=== PATIENT | female | born 1950 | race Caucasian/White ===

== ENCOUNTER → 2017-06-30 | Outpatient (CLI) | payer MEDICARE ==
[~2017-06-30] MED LIST: CATHETER FLUSH 10 ML SYR IV PRN; IOHEXOL 350 MG/ML 150 ML (OMNIPAQUE 350) VIAL IV ONE; NS 100 ML (IVPB) BAG IV ONE
[2017-06-30 15:17] LABS: BLOOD UREA NITROGEN 12 MG/DL (7-18); BUN/CREATININE RATIO 15; CREATININE SERUM 0.82 MG/DL (0.60-1.30); GFR ESTIMATED > 60
--- NOTE | 2017-06-30 16:07 | Diagnostic Imaging Report ---
INDICATION: Bilateral leg pain. Bilateral lower extremity venous Doppler study was performed in the routine fashion with color flow Doppler and waveform analysis. FINDINGS: The common femoral veins, superficial femoral veins, popliteal veins and visualized portion of the tibial veins show normal compressibility and venous flow patterns. There is normal augmentation. IMPRESSION: No evidence of deep vein thrombosis in the major veins of both legs. Dictated by: Dictated on workstation # [id number]
--- NOTE | 2017-06-30 17:09 | Diagnostic Imaging Report ---
PROCEDURE: CT angiography of the chest with contrast. TECHNIQUE: Multiple contiguous axial images were obtained through the chest after uneventful bolus administration of intravenous contrast. Reconstructed CTA MIP acquisitions were also performed. INDICATION: Shortness of breath. COPD. 125 mL of Omnipaque 350 is administered intravenously. FINDINGS: There is severe emphysema involving both lungs, worst in the upper lobes. There is a concerning nodule in the right lower lobe measuring 2.3 x 1.6 x 2.6 cm. There is adjacent atelectasis and scarring seen however. A neoplasm versus chronic atelectasis or scarring from a prior pneumonitis is possible. Further evaluation with PET/CT is suggested. There are no other masses or suspicious nodules seen in the lungs. The pulmonary arteries demonstrate well opacified lumen with contrast with no filling defect seen to suggest pulmonary embolism. The thoracic aorta is normal in caliber. No dissection or aneurysm. The heart size is normal. No pericardial or pleural effusion. There is minimally prominent nonspecific infracarinal lymph node measuring 1 cm in short axis. No other significantly enlarged lymph nodes seen in the mediastinum or raffaele. No axillary lymphadenopathy seen. Sections in the upper abdomen demonstrate cholecystectomy clips. There is diffuse fatty infiltration in the liver. The osseous structures demonstrate mild degenerative changes and Schmorl's nodes seen with vacuum phenomenon along the mid thoracic spine disc levels. IMPRESSION: 1. Severe emphysema worst in the upper lobes. 2. Indeterminate 2.6 cm right lower lobe pulmonary nodule. Surrounding scarring could suggest sequela of prior infection, however neoplastic etiology is possible and evaluation with PET/CT is recommended. 3. No evidence of pulmonary embolism. The finding of 2.6 cm pulmonary nodule in the right lower lobe was discussed with Dr. De La Cruz by Dr. Alfaro on the phone at time of dictation. Dictated by: Dictated on workstation # [id number]
== END ==
LOC: RAD 14:42
PROVIDERS: ATTEND Nurse Practitioner Family
DX: M79.89 Other specified soft tissue disorders (principal); M79.606 Pain in leg, unspecified; J43.9 Emphysema, unspecified; R91.1 Solitary pulmonary nodule; J30.9 Allergic rhinitis, unspecified
CPT/HCPCS: 36415; 71275; 82565; 84520; 93970

== ENCOUNTER → 2017-07-08 | Outpatient (CLI) | payer MEDICARE ==
[~2017-07-08] MED LIST changes: -CATHETER FLUSH 10 ML SYR IV PRN; -IOHEXOL 350 MG/ML 150 ML (OMNIPAQUE 350) VIAL IV ONE; -NS 100 ML (IVPB) BAG IV ONE; +RT-ALBUTEROL SULF 2.5 MG/3 ML PRE-MIX VIAL IH ONE
== END ==
LOC: RT 15:08 → EDUNIT# 16:45
PROVIDERS: ATTEND Nurse Practitioner Family
DX: R06.00 Dyspnea, unspecified; J45.909 Unspecified asthma, uncomplicated; J44.9 Chronic obstructive pulmonary disease, unspecified
CPT/HCPCS: 94060; 94640; 94726; 94729

== ENCOUNTER → 2017-07-21 | Outpatient (CLI) | payer MEDICARE | LOC: RAD 08:40 | PROVIDERS: ATTEND Internal Medicine Critical Care Medicine | DX: R91.8 Other nonspecific abnormal finding of lung field (principal) ==

== ENCOUNTER → 2017-09-22 | Outpatient (CLI) | payer MEDICARE ==
--- NOTE | 2017-09-22 14:59 | Diagnostic Imaging Report ---
PROCEDURE: CT chest without contrast. TECHNIQUE: Multiple contiguous axial images were obtained through the chest without the use of intravenous contrast. INDICATION: Lung mass. FINDINGS: Since 06/30/2017, there is continued extensive centrilobular emphysema throughout the lungs with the persistent irregular nodule in the posterior right lower lobe. This has associated peripheral linear density with more central nodular component which now measures 2.7 x 1.6 cm. Previous measurement was 2.6 x 1.6 cm. This does extend to the pleural surface. No significant pleural or pericardial fluid is identified. No other change is identified. IMPRESSION: Extensive centrilobular emphysema with minimal change in the somewhat irregular nodule in the lower lobe of the right lung. Given borderline appearance on previous PET/CT scan, either short-term CT followup in three months or CT-guided biopsy is recommended. Major differential considerations include rounded atelectasis or scarring, primary pulmonary neoplasm, or chronic infection. Dictated by: Dictated on workstation # [id number]
== END ==
LOC: RAD 13:54
PROVIDERS: ATTEND Internal Medicine Critical Care Medicine
DX: J43.9 Emphysema, unspecified (principal); R91.8 Other nonspecific abnormal finding of lung field
CPT/HCPCS: 71250

== ENCOUNTER 2017-10-01 07:11 | Day surgery (SDC) | payer MEDICARE ==
[2017-10-01] VITALS (15 sets, daily range): BP systolic 126–162; BP diastolic 62–88
[~2017-10-01] VITALS: Ht 165.1 cm; Wt 91.2 kg
--- OUTSIDE RECORDS SUMMARY | 2017-10-01 07:14 | XMS REPORT ---
Author Author [facility] Address [address] [place] [address] Care Team Providers Care Release And Technical Records Clerk Name Role Phone JAMES SIFUENTES Unavailable PROBLEMS Type Condition ICD9-CM Code AEK29-OC Code Onset Dates Condition Status SNOMED Code Problem COPD, severe J44.9 Active 140226126 Problem Perennial allergic rhinitis, unspecified allergic rhinitis trigger J30.89 Active 087212939 Problem Obesity (BMI 30-39.9) E66.9 Active 601239510 Problem Pulmonary emphysema, unspecified emphysema type J43.9 Active 24408776 ALLERGIES Substance Reaction Event Type Date Status [place] (Diagnostic) hives Drug Allergy Oct, Active Penicillin G Sodium pt voices severe reaction runs in family so she doesn't like to have it given to her Drug Allergy Oct, Active [place] Flavor hives Drug Allergy Oct, Active SOCIAL HISTORY No smoking Hx information available PLAN OF CARE Activity Details Follow Up 6 Months Reason:COPD follow up VITAL SIGNS Height 65.4 in 2016-10-30 Weight 206.3 lbs 2016-10-30 Temperature 97.8 degrees Fahrenheit 2016-10-30 Heart Rate 100 bpm 2016-10-30 Respiratory Rate 20 2016-10-30 BMI 33.91 kg/m2 2016-10-30 Blood pressure systolic 124 mmHg 2016-10-30 Blood pressure diastolic 60 mmHg 2016-10-30 MEDICATIONS Medication Instructions Dosage Frequency Start Date End Date Duration Status Biotin 5000 5 MG Orally Once a day 1 capsule 24h Active CompAir Nebulizer nebulizer needs machine and tubing Oct, Active Vitamin D-3 1000 UNIT Orally Once a day 2 capsules 24h Active Lutein 20 MG Orally Once a day 1 capsule with a meal 24h Active Ventolin HFA 108 (90 Base) MCG/ACT Inhalation 2 times a day ( DONT USE MORE THAN 1 INHALER A MONTH) 2 puffs Active Singulair 10 mg Orally Once a day 1 tablet in the evening 24h Oct, Active Aleve 220 MG Orally every 12 hrs 1 tablet as needed 12h Active Dulera 200-5 MCG/ACT Inhalation Twice a day 2 puffs 12h Active Collagen Ultra - Active Albuterol Sulfate (2.5 MG/3ML) 0.083% Inhalation Three times a day as needed for cough/wheeze 3 ml Oct, Active Fluticasone Propionate 50 MCG/ACT Nasally Once a day 2 spray in each nostril 24h 0 days Active Spiriva HandiHaler 18 MCG Inhalation Once a day 1 capsule 24h Active Potassium 99 MG Orally Once a day 1 tablet 24h Active Multivitamin Adult - Active Zyrtec Allergy 10 mg Orally Once a day 1 tablet 24h Active RESULTS No Results PROCEDURES Procedure Date Ordered Related Diagnosis Body Site Office Visit, New Pt., Level 3 Oct 30, 2016 IMMUNIZATIONS No Known Immunizations
--- OUTSIDE RECORDS SUMMARY | 2017-10-01 07:14 | XMS REPORT ---
Author Author ASYA PRUITT [facility] Address Unknown Phone Unavailable Care Team Providers Care Chamber Worker Name Role Phone ASYA PRUITT Unavailable Unavailable PROBLEMS Type Condition ICD9-CM Code NJF32-JM Code Onset Dates Condition Status SNOMED Code Problem COPD, severe J44.9 Active 320131466 Problem Perennial allergic rhinitis, unspecified allergic rhinitis trigger J30.89 Active 182466328 Problem Obesity (BMI 30-39.9) E66.9 Active 464886367 Problem Pulmonary emphysema, unspecified emphysema type J43.9 Active 27321254 ALLERGIES Unknown Allergies SOCIAL HISTORY No smoking Hx information available PLAN OF CARE VITAL SIGNS MEDICATIONS Unknown Medications RESULTS No Results PROCEDURES No Known procedures IMMUNIZATIONS No Known Immunizations
--- OUTSIDE RECORDS SUMMARY | 2017-10-01 07:14 | XMS REPORT ---
Author Author [facility] Address [address] [place] [address] Care Team Providers Care Animal Ride Attendant Name Role Phone JAMES SIFUENTES Unavailable PROBLEMS Type Condition ICD9-CM Code JOF37-DQ Code Onset Dates Condition Status SNOMED Code Problem COPD, severe J44.9 Active 941064043 Problem Perennial allergic rhinitis, unspecified allergic rhinitis trigger J30.89 Active 715398495 Problem Obesity (BMI 30-39.9) E66.9 Active 537876967 Problem Pulmonary emphysema, unspecified emphysema type J43.9 Active 04160284 ALLERGIES Unknown Allergies SOCIAL HISTORY No smoking Hx information available PLAN OF CARE VITAL SIGNS MEDICATIONS Unknown Medications RESULTS Name Result Date Reference Range CBC 2016-11-04 WBC 7.4 3.4-10.8 RBC 4.69 3.77-5.28 Hemoglobin 13.6 11.1-15.9 Hematocrit 41.4 34.0-46.6 MCV 88 79-97 MCH 29.0 26.6-33.0 MCHC 32.9 31.5-35.7 RDW 13.3 12.3-15.4 Platelets 306 150-379 Neutrophils 70 Lymphs 21 Monocytes 7 Eos 2 Basos 0 Neutrophils (Absolute) 5.2 1.4-7.0 Lymphs (Absolute) 1.5 0.7-3.1 Monocytes(Absolute) 0.5 0.1-0.9 Eos (Absolute) 0.1 0.0-0.4 Baso (Absolute) 0.0 0.0-0.2 Immature Granulocytes 0 Immature Grans (Abs) 0.0 0.0-0.1 THYROID ANALYZER 2016-11-04 TSH 1.290 0.450-4.500 LIPID PANEL 2016-11-04 Cholesterol, Total 154 100-199 Triglycerides 78 0-149 HDL Cholesterol 65 >39 VLDL Cholesterol Og 16 5-40 LDL Cholesterol Calc 73 0-99 CMP 2016-11-04 Glucose, Serum 91 65-99 BUN 15 8-27 Creatinine, Serum 0.71 0.57-1.00 eGFR If NonAfricn Am 90 >59 eGFR If Africn Am 103 >59 BUN/Creatinine Ratio 21 11-26 Sodium, Serum 145 134-144 Potassium, Serum 4.4 3.5-5.2 Chloride, Serum 104 96-106 Carbon Dioxide, Total 24 18-29 Calcium, Serum 9.1 8.7-10.3 Protein, Total, Serum 6.2 6.0-8.5 Albumin, Serum 4.1 3.6-4.8 Globulin, Total 2.1 1.5-4.5 A/G Ratio 2.0 1.1-2.5 Bilirubin, Total 0.4 0.0-1.2 Alkaline Phosphatase, S 103 39-117 AST (SGOT) 13 0-40 ALT (SGPT) 17 0-32 PROCEDURES Procedure Date Ordered Related Diagnosis Body Site ROUTINE VENIPUNCTURE 2016-11-04 N/A ASSAY THYROID STIM HORMONE Nov 04, 2016 LIPID PANEL Nov 04, 2016 COMPLETE CBC W/AUTO DIFF WBC Nov 04, 2016 VENIPUNCT, ROUTINE* Nov 04, 2016 COMPREHEN METABOLIC PANEL Nov 04, 2016 IMMUNIZATIONS No Known Immunizations
[2017-10-01 07:39] LABS: MEAN PLATELET VOLUME 10.1 FL (7.4-10.4); RED BLOOD COUNT 4.85 10^6/uL (4.35-5.85); WHITE BLOOD COUNT 8.8 10^3/uL (4.3-11.0)
[2017-10-01 07:48] LABS: PROTHROMBIN TIME PATIENT 12.8 SEC (12.2-14.7)
[2017-10-01] MEDS ORDERED: TIOT18CA2 IH (08:34)
[2017-10-01] MEDS ORDERED: MONT10TA24 PO (08:34)
[2017-10-01] MEDS ORDERED: MOME13HF IH (08:34)
[2017-10-01] MEDS ORDERED: RT-ALBUINH IH (08:34)
[2017-10-01] MEDS ORDERED: LIDOCAINE 1% INJ 50 ML (XYLOCAINE) VIAL IJ ONE (08:45)
[2017-10-01] MEDS ORDERED: fentaNYL INJECTION 100 MCG/2 ML AMP ONE (08:52)
[2017-10-01] MEDS ORDERED: LIDOCAINE 1% INJ 50 ML (XYLOCAINE) VIAL ONE (08:52)
--- NOTE | 2017-10-01 09:59 | Pre-Procedure Progress Note ---
Pre-Procedure Progress Note H&P Reviewed The H&P was reviewed, patient examined and no changes noted. Date H&P Reviewed: Oct 01, 2017 Time H&P Reviewed: 09:00 Pre-Procedure Diagnosis: lung mass SURENDRA BELLAMY MD Oct 01, 2017 09:59
[2017-10-01] MEDS ORDERED: HYDROcodone/APAP 5 MG/325 MG (LORTAB) TAB PO PRN (10:00)
--- NOTE | 2017-10-01 10:00 | Discharge Instructions ---
Discharge Instructions Home Medicaitons Changes Hold any current blood thinner home medications for [24 hours]. SURENDRA BELLAMY MD Oct 01, 2017 10:00
--- NOTE | 2017-10-01 10:48 | Diagnostic Imaging Report ---
EXAMINATION: CT-guided biopsy-lung. INDICATION: Right lower lobe nodule. Current history and physical and other medical records are reviewed prior to the procedure. CONSENT: Informed consent was obtained from the patient. The risks, benefits, potential complications and alternatives were reviewed and all questions answered to the patient's satisfaction. The patient's vital signs, cardiac rhythm, and pulse oximetry were observed throughout the procedure by qualified nursing personnel. Sedation/medications: none. FINDINGS: Right lower lobe nodule. PROCEDURE: After maximal sterile barrier technique preparation and draping, 1% lidocaine was utilized for local anesthesia. With the patient in right side down position, and via posterior intercostal approach, a 19-gauge guide needle is introduced into the right lower lobe nodule under CT scan guidance. After confirming adequate positioning with saved CT images, multiple 20 gauge core biopsy specimens were obtained. Autologous blood patch was injected in the tract as the guide needle was removed The patient tolerated the procedure well with no immediate complications. IMPRESSION: Successful CT-guided biopsy of right lower lobe nodule. Dictated by: Dictated on workstation # [id number]
[2017-10-01] MEDS ORDERED: fentaNYL INJECTION 100 MCG/2 ML AMP IVP PRN (11:00)
--- NOTE | 2017-10-01 12:08 | Diagnostic Imaging Report ---
EXAM: Portable upright expiratory view of the chest. INDICATION: Right lung nodules post CT biopsy. FINDINGS: Bibasilar opacities are seen, likely related to atelectasis. The heart size is normal. No effusion or pneumothorax. The mediastinum and raffaele appear unremarkable. IMPRESSION: Bibasilar opacities favors to be atelectasis. No pneumothorax. Dictated by: Dictated on workstation # [id number]
== END 2017-10-01 14:45 | disposition home or self-care (01) ==
LOC: RAD 07:11
PROVIDERS: ATTEND Nurse Practitioner Family
DX: R91.1 Solitary pulmonary nodule (principal)
CPT/HCPCS: 36415; 71035; 77012; 85027; 85610; 85730

== ENCOUNTER 2018-01-06 14:14 | Outpatient (RCR) | payer MEDICARE, MEDICAID ==
[~2018-01-06 14:14] MED LIST changes: +MOME13HF IH; +MONT10TA24 PO; +RT-ALBUINH IH; -RT-ALBUTEROL SULF 2.5 MG/3 ML PRE-MIX VIAL IH ONE; +TIOT18CA2 IH
== END 2018-01-26 | disposition home or self-care (01) ==
LOC: ONC 14:14
PROVIDERS: ATTEND Internal Medicine Hematology & Oncology
DX: C34.31 Malignant neoplasm of lower lobe, right bronchus or lung (principal); J44.9 Chronic obstructive pulmonary disease, unspecified; Z87.891 Personal history of nicotine dependence
CPT/HCPCS: 99213; 99214

== ENCOUNTER → 2018-04-08 | Outpatient (CLI) | payer MEDICARE, MEDICAID ==
[~2018-04-08] MED LIST changes: +CATHETER FLUSH 10 ML SYR IV PRN; +IOHEXOL 350 MG/ML 100 ML (OMNIPAQUE 350) VIAL IV ONE; +NS 250 ML (IVPB) BAG IV ONE
--- NOTE | 2018-04-08 15:43 | Diagnostic Imaging Report ---
PROCEDURE: CT chest with contrast only. TECHNIQUE: Multiple contiguous axial images were obtained through the chest after administration of intravenous contrast. INDICATION: Lung cancer, followup. COMPARISON: Comparison is made with prior CT chest from 09/22/2017. FINDINGS: No axillary lymphadenopathy is detected. No definite hilar or mediastinal lymphadenopathy is seen with the exception of some soft tissue fullness in the subcarinal region. Soft tissue fullness measures approximately 3.3 x 1.5 cm compared with 3.0 x 1.2 cm. No pericardial or pleural fluid is detected. Parenchymal evaluation demonstrates severe emphysematous changes in both lungs. The irregular opacity in the right lower lobe measures approximately 3.5 cm transverse x 2.7 cm AP compared with 2.7 x 1.6 cm. This extends to the pleural surface, and there is some associated pleural thickening as well. No additional parenchymal mass is seen. Upper abdomen demonstrates hepatic steatosis. No adrenal mass is detected. IMPRESSION: Enlarging irregular right lower lobe mass-like density when compared to the study from 09/22/2017. There is also some slight increase in fullness in the subcarinal region suggestive of subcarinal lymphadenopathy. Dictated by: Dictated on workstation # [id number]
== END ==
LOC: RAD 14:11
PROVIDERS: ATTEND Internal Medicine Hematology & Oncology
DX: R91.8 Other nonspecific abnormal finding of lung field (principal); G93.89 Other specified disorders of brain
CPT/HCPCS: 71260

== ENCOUNTER → 2018-04-27 | Outpatient (CLI) | payer MEDICARE, MEDICAID ==
[~2018-04-27] MED LIST changes: -CATHETER FLUSH 10 ML SYR IV PRN; -IOHEXOL 350 MG/ML 100 ML (OMNIPAQUE 350) VIAL IV ONE; -NS 250 ML (IVPB) BAG IV ONE
--- NOTE | 2018-04-27 13:12 | Diagnostic Imaging Report ---
INDICATION: Non-small cell lung carcinoma and subcarinal adenopathy. Serum blood glucose level at the time of injection is 127 mg/dL. Patient was administered 12.8 mCi F-18 FDG intravenously administered in the right antecubital location and PET imaging was performed from the top of skull to the mid thighs. Noncontrast CT was also performed for attenuation correction and anatomic correlation. Correlation is made with prior PET/CT from 07/21/[address] recent CT chest from 04/08/2018. FINDINGS: There is symmetric activity throughout the brain. Soft tissues of the neck are unremarkable. There has been development of hypermetabolism in the subcarinal location with SUV max of 8. This corresponds to the subcarinal adenopathy noted on recent CT. No significant hypermetabolism at this location on prior PET was visible. Low-level activity at the area of opacity in the right lower lobe is seen, SUV max of approximately 2.4. No hilar hypermetabolism is seen. No other parenchymal abnormalities are identified. Physiologic activity within the abdomen and pelvis is seen within the GI and tracts. IMPRESSION: 1. Development of intense hypermetabolism in the subcarinal location at area of recently noted increasing adenopathy when compared with prior PET/CT from 07/21/2017. Only mild low-level activity is seen within the irregular opacity in the right lower lobe. No other abnormal foci are identified. Dictated by: Dictated on workstation # [id number]
== END ==
LOC: RAD 07:33
PROVIDERS: ATTEND Internal Medicine Hematology & Oncology
DX: C34.90 Malignant neoplasm of unspecified part of unspecified bronchus or lung (principal); R59.0 Localized enlarged lymph nodes; R91.8 Other nonspecific abnormal finding of lung field

== ENCOUNTER 2018-05-10 05:53 | Outpatient (CLI) | payer MEDICARE, MEDICAID ==
[~2018-05-10] VITALS: Ht 165.1 cm; Wt 91.2 kg
== END 2018-05-10 14:32 | disposition home or self-care (01) ==
LOC: PREOP 05:53
PROVIDERS: ATTEND Internal Medicine Critical Care Medicine
DX: Z01.818 Encounter for other preprocedural examination (principal)

== ENCOUNTER 2018-05-12 06:08 | Day surgery (SDC) | payer MEDICARE, MEDICAID ==
[2018-05-12] VITALS (9 sets, daily range): BP systolic 143–157; BP diastolic 82–91
[~2018-05-12] VITALS: Ht 165.1 cm; Wt 91.2 kg
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
--- OUTSIDE RECORDS SUMMARY | 2018-05-12 06:12 | XMS REPORT ---
Author Author TUNDE MITESH [facility] Address [address] [place] [address] Care Team Providers Care Rn Licensed Practical Name Role Phone MITESH GRIFFITHS Unavailable PROBLEMS Type Condition ICD9-CM Code TEC94-KH Code Onset Dates Condition Status SNOMED Code Problem Malignant neoplasm of right lung, unspecified part of lung C34.91 Active 23284451 Problem COPD, severe J44.9 Active 312074429 Problem Pulmonary emphysema, unspecified emphysema type J43.9 Active 59822603 Problem Perennial allergic rhinitis, unspecified allergic rhinitis trigger J30.89 Active 320529745 Problem Obesity (BMI 30-39.9) E66.9 Active 650499118 ALLERGIES Substance Reaction Event Type Date Status [place] (Diagnostic) hives Drug Allergy Aug, Active Penicillin G Sodium pt voices severe reaction runs in family so she doesn't like to have it given to her Drug Allergy Aug, Active [place] Flavor hives Drug Allergy Aug, Active Pappya, Mangos hives Non Drug Allergy Aug, Active ENCOUNTERS Encounter Location Date Diagnosis [facility] [place] [address] [facility] [address] [id number], [place] [id number] Mar, [facility] [address] [id number], [place] [id number] Mar, [address] [id number], [place] [id number] February, Need for hepatitis C screening test Z11.59 [place] [address] [facility] [id number][place] [id number] Jan, Pulmonary emphysema, unspecified emphysema type J43.9 ; Obesity ( BMI 30-39.9) E66.9 ; Thyroid disorder screen Z13.29 ; Malignant neoplasm of right lung, unspecified part of lung C34.91 and Leg cramp R25.[address] [facility] [address] [id number] [place], [place] [id number] Dec, Dental examination Z01.[address] [facility] [address] [id number] [place] [id number] Oct, COPD, severe J44.[address] [facility] [address] [id number] [place], [place] [id number] Aug, Dental examination Z01.[address] [facility] [address] [id number] [place] [id number] Aug, Dental examination Z01.[address] [facility] [address] [id number] [place] [address] Jul, Dental examination Z01.[address] [facility] [address] [id number] MEMORIAL [facility] [id number] Jul, Dental examination Z01.[address] [facility] [address] [id number] MEMORIAL [facility] [address] Jul, Lower extremity edema R60.[address] [facility] [address] [id number] MEMORIAL [facility] [id number] 30 Jun, 2017 Cellulitis of left leg L03.[address] [facility] [address] [id number] MEMORIAL [facility]PITAL[place] [id number] 26 Jun, [address] [facility] [address] [id number], [place] [id number] 18 Jun, 2017 Encounter for dental examination and cleaning without abnormal findings Z01.[address] [facility] [address] [id number] [place] [id number] 16 Jun, 2017 Cellulitis of left lower extremity L03.[address] [facility] [address] [id number] [place] [id number] 15 Jun, [address] [facility] [address] [id number] MEMORIAL [facility] [id number] 05 Jun, [address] [facility] [address] [id number], [place] [id number] May, [facility] [address] [id number], [place] [id number] May, Dental examination Z01.20 [facility] [id number], [place] [id number] May, [facility] [address] [id number], [place] [id number] May, Dental examination Z01.20 [facility] [address] [id number], [place] [id number] Apr, COPD, severe J44.9 ; Shortness of breath R06.02 and Perennial allergic rhinitis, unspecified allergic rhinitis trigger J30.89 [facility] [address] [id number], [place] [id number] Oct, Thyroid disorder screen Z13.29 ; Pulmonary emphysema, unspecified emphysema type J43.9 ; Screening cholesterol level Z13.220 and Obesity (BMI 30- 39.9) E66.9 [facility] [address] [id number], [place] [id number] Oct, [facility] [address] [id number], [place] [id number] Oct, Pulmonary emphysema, unspecified emphysema type J43.9 ; Perennial allergic rhinitis, unspecified allergic rhinitis trigger J30.89 ; Screening cholesterol level Z13.220 ; Thyroid disorder screen Z13.29 and Obesity (BMI 30- 39.9) E66.9 IMMUNIZATIONS No Known Immunizations SOCIAL HISTORY Never Assessed REASON FOR VISIT RE EVAL 1 HR PLAN OF CARE Activity Details Follow Up 3month perio maintenance Reason: VITAL SIGNS Blood pressure systolic 125 mmHg 2017-09-14 Blood pressure diastolic 71 mmHg 2017-09-14 MEDICATIONS Medication Instructions Dosage Frequency Start Date End Date Duration Status Aleve 220 MG Orally every 12 hrs 1 tablet as needed 12h Not-Taking Biotin 5000 5 MG Orally Once a day 1 capsule 24h Active Albuterol Sulfate (2.5 MG/3ML) 0.083% Inhalation Three times a day as needed for cough/wheeze 3 ml Oct, Not-Taking Potassium 99 MG Orally Once a day 1 tablet 24h Active Lutein 20 MG Orally Once a day 1 capsule with a meal 24h Active Singulair 10 mg Orally Once a day 1 tablet in the evening 24h Active Ventolin HFA 108 (90 Base) MCG/ACT 2 puffs 2 times a day ( DONT USE MORE THAN 1 INHALER A MONTH) Inhalation Active Vitamin D-3 1000 UNIT Orally Once a day 2 capsules 24h Active Collagen Ultra - Active Zyrtec Allergy 10 mg 1 tablet Once a day Orally Active Dulera 200-5 MCG/ACT 2 puffs Twice a day Inhalation Active CompAir Nebulizer nebulizer needs machine and tubing Oct, Not-Taking Multivitamin Adult - Active Fluticasone Propionate 50 MCG/ACT USE TWO SPRAY NASALLY DAILY. Active Spiriva HandiHaler 18 MCG 1 capsule Once a day Inhalation Active RESULTS No Results PROCEDURES Procedure Date Ordered Result Body Site Dental no charge Sep 14, 2017 INSTRUCTIONS MEDICATIONS ADMINISTERED No Known Medications [...]
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
--- OUTSIDE RECORDS SUMMARY | 2018-05-12 06:12 | XMS REPORT ---
Author Author VALERIE CHAIDEZ [facility] DIANE Address [address] [place] [address] Care Team Providers Care Chief Scientist Name Role Phone VALERIE CHAIDEZ Unavailable PROBLEMS Type Condition ICD9-CM Code LVM76-TW Code Onset Dates Condition Status SNOMED Code Problem Malignant neoplasm of right lung, unspecified part of lung C34.91 Active 80571052 Problem COPD, severe J44.9 Active 934244930 Problem Pulmonary emphysema, unspecified emphysema type J43.9 Active 80826681 Problem Perennial allergic rhinitis, unspecified allergic rhinitis trigger J30.89 Active 273706064 Problem Obesity (BMI 30-39.9) E66.9 Active 182242502 ALLERGIES No Information ENCOUNTERS Encounter Location Date Diagnosis [facility] [address] [id number], [place] [id number] Mar, [facility] [address] [id number], [place] [id number] Jan, Pulmonary emphysema, unspecified emphysema type J43.9 ; Obesity ( BMI 30-39.9) E66.9 ; Thyroid disorder screen Z13.29 ; Malignant neoplasm of right lung, unspecified part of lung C34.91 and Leg cramp R25.[address] [id number], [place] [id number] Dec, Dental examination Z01.[address] [id number], [place] [id number] Oct, COPD, severe J44.[address] [id number], [place] [id number] Aug, Dental examination Z01.[address] [id number], [place] [id number] Aug, Dental examination Z01.[address] [facility] [address] [id number] [place] [address] Jul, Dental examination Z01.[address] [facility] [address] [id number] [place] [id number] Jul, Dental examination Z01.[address] [facility] [address] [id number] [place] [address] 13 Jul, 2017 Lower extremity edema R60.[address] [facility] [address] [id number] [place] [address] 30 Jun, 2017 Cellulitis of left leg L03.[address] [facility] [address] [id number] [place] [id number] 26 Jun, [address] [facility] [address] [id number] [facility] [id number] 18 Jun, 2017 Encounter for dental examination and cleaning without abnormal findings Z01.[address] [facility] [address] [id number] [place] [id number] 16 Jun, 2017 Cellulitis of left lower extremity L03.[address] [facility] [address] [id number] [place] [id number] 15 Jun, [address] [facility] [address] [id number] ACUTE [facility] [id number] Jun, [facility] [address] [id number] [place] [id number] May, [facility] [address] [id number] [place] [id number] May, Dental examination Z01.[address] [facility] [address] [id number] [place] [id number] May, [facility] [address] [id number] [place] [id number] May, Dental examination Z01.[address] [facility] [address] [id number] [place] [id number] Apr, COPD, severe J44.9 ; Shortness of breath R06.02 and Perennial allergic rhinitis, unspecified allergic rhinitis trigger J30.89 [facility] [address] [id number] [place] [address] Oct, Thyroid disorder screen Z13.29 ; Screening cholesterol level Z13.220 ; Pulmonary emphysema, unspecified emphysema type J43.9 and Obesity ( BMI 30-39.9) E66.[address] [id number] [place] [id number] Oct, [facility] [address] [id number] [place] [id number] Oct, Pulmonary emphysema, unspecified emphysema type J43.9 ; Perennial allergic rhinitis, unspecified allergic rhinitis trigger J30.89 ; Screening cholesterol level Z13.220 ; Thyroid disorder screen Z13.29 and Obesity (BMI 30- 39.9) E66.9 IMMUNIZATIONS No Known Immunizations SOCIAL HISTORY Never Assessed REASON FOR VISIT srp PLAN OF CARE VITAL SIGNS MEDICATIONS Unknown Medications RESULTS No Results PROCEDURES Procedure Date Ordered Result Body Site Billing Notes on claim Aug 03, 2017 INSTRUCTIONS MEDICATIONS ADMINISTERED No Known Medications [...] treatment only. Stage I [facility]. [place] [facility] Surgical History Complete Hysterectomy 09/2013 Surgical History Gallbladder 04/2011 Surgical History Prolaspe repair enterolysis, uterolysis, sacral colpopexy, excision of sigmoid mass, excision of cul-de-sac peritoneum, abdominal revision of vaginal mesh, cystolcele repair, and cystoscopy with hydrodistention 09/2015 Surgical History Midurethral Sling TVT-Exact and Cystoscopy 05/2013
--- OUTSIDE RECORDS SUMMARY | 2018-05-12 06:12 | XMS REPORT ---
Author Author JAMES SIFUENTES [email or web address] Address [address] [place] [address] Care Team Providers Care Coffee Urn Attendant Name Role Phone JAMES SIFUENTES Unavailable PROBLEMS Type Condition ICD9-CM Code GML06-DZ Code Onset Dates Condition Status SNOMED Code Problem COPD, severe J44.9 Active 662635714 Problem Perennial allergic rhinitis, unspecified allergic rhinitis trigger J30.89 Active 280866337 Problem Obesity (BMI 30-39.9) E66.9 Active 034323110 Problem Pulmonary emphysema, unspecified emphysema type J43.9 Active 39228314 ALLERGIES Substance Reaction Event Type Date Status [place] (Diagnostic) hives Drug Allergy Apr, Active Penicillin G Sodium pt voices severe reaction runs in family so she doesn't like to have it given to her Drug Allergy Apr, Active [place] Flavor hives Drug Allergy Apr, Active ENCOUNTERS Encounter Location Date Diagnosis [facility] [address] [id number] [place] [id number] Mar, [facility] [address] [facility] [id number] [place] [phone] Jan, [facility] [address] [id number] [place] [address] Dec, [facility] examination Z01.20 [facility] [address] [id number] [place] [id number] Oct, COPD, severe J44.9 [facility] [place] [address] [facility] [id number] [place] [id number] Aug, Dental examination Z01.20 [email or web address] [address] [id number] [place] [id number] Aug, Dental examination Z01.[address] [facility] [address] [id number] [place] [address] Jul, Dental examination Z01.[address] [facility] [address] [id number] [place] [id number] Jul, Dental examination Z01.[address] [facility] [address] [id number] [place] [address]79233[address] 13 Jul, 2017 Lower extremity edema R60.[address] [facility] [address] [id number] [place] [address] 30 Jun, 2017 Cellulitis of left leg L03.[address] [facility] [address] [id number] [place] [id number] Jun, [facility] [address] [id number] [id number] 18 Jun, 2017 Encounter for dental examination and cleaning without abnormal findings Z01.[address] [facility] [address] [id number] VALLEY [facility] [id number] 16 Jun, 2017 Cellulitis of left lower extremity L03.116 [facility] [address] [id number] [place] [address] 15 Jun, [address] [facility] [address] [id number] [place] [id number] Jun, [facility] [address] [id number] [place] [id number] May, [facility] [address] [id number] [place] [id number] May, Dental examination Z01.[address] [facility] [address] [id number] [place] [id number] May, [facility] [address] [id number] [place] [id number] May, Dental examination Z01.[address] [facility] [address] [id number] [place] [address] Apr, COPD, severe J44.9 ; Shortness of breath R06.02 and Perennial allergic rhinitis, unspecified allergic rhinitis trigger J30.89 [address] [id number] [place] [id number] Oct, Thyroid disorder screen Z13.29 ; Screening cholesterol level Z13.220 ; Pulmonary emphysema, unspecified emphysema type J43.9 and Obesity ( BMI 30-39.9) E66.9 [facility] [address] [id number] [place] [id number] Oct, [facility] [id number] [place] [id number] Oct, Pulmonary emphysema, unspecified emphysema type J43.9 ; Perennial allergic rhinitis, unspecified allergic rhinitis trigger J30.89 ; Screening cholesterol level Z13.220 ; Thyroid disorder screen Z13.29 and Obesity (BMI 30- 39.9) E66.9 IMMUNIZATIONS No Known Immunizations SOCIAL HISTORY Never Assessed REASON FOR VISIT COPD follow up mohan reeves PLAN OF CARE Activity Details Follow Up 6 Months Reason:COPD/fasting labs VITAL SIGNS Height 65.4 in 2017-05-18 Weight 208.9 lbs 2017-05-18 Temperature 97.8 degrees Fahrenheit 2017-05-18 Heart Rate 77 bpm 2017-05-18 Respiratory Rate 22 2017-05-18 Oximetry 95 % 2017-05-18 BMI 34.34 kg/m2 2017-05-18 Blood pressure systolic 132 mmHg 2017-05-18 Blood pressure diastolic 64 mmHg 2017-05-18 MEDICATIONS Medication Instructions Dosage Frequency Start Date End Date Duration Status Singulair 10 mg Orally Once a day 1 tablet in the evening 24h Active Vitamin D-3 1000 UNIT Orally Once a day 2 capsules 24h Active Potassium 99 MG Orally Once a day 1 tablet 24h Active Biotin 5000 5 MG Orally Once a day 1 capsule 24h Active Zyrtec Allergy 10 mg 1 tablet Once a day Orally Active Fluticasone Propionate 50 MCG/ACT USE TWO SPRAY NASALLY DAILY. Active Lutein 20 MG Orally Once a day 1 capsule with a meal 24h Active Dulera 200-5 MCG/ACT 2 puffs Twice a day Inhalation Active Spiriva HandiHaler 18 MCG 1 capsule Once a day Inhalation Active Multivitamin Adult - Active Collagen Ultra - Active Ventolin HFA 108 (90 Base) MCG/ACT 2 puffs 2 times a day ( DONT USE MORE THAN 1 INHALER A MONTH) Inhalation Active Aleve 220 MG Orally every 12 hrs 1 tablet as needed 12h Active RESULTS No Results PROCEDURES Procedure Date Ordered Result Body Site MEASURE BLOOD OXYGEN LEVEL May 18, 2017 [facility] VISIT ESTABLISHED PATIENT May 18, 2017 INSTRUCTIONS MEDICATIONS ADMINISTERED No Known [...] treatment only. Stage I [facility]. [place] [facility] Surgical History Complete Hysterectomy 09/2013 Surgical History Gallbladder 04/2011 Surgical History Prolaspe repair enterolysis, uterolysis, sacral colpopexy, excision of sigmoid mass, excision of cul-de-sac peritoneum, abdominal revision of vaginal mesh, cystolcele repair, and cystoscopy with hydrodistention 09/2015 Surgical History Midurethral Sling TVT-Exact and Cystoscopy 05/2013
--- OUTSIDE RECORDS SUMMARY | 2018-05-12 06:12 | XMS REPORT ---
Author Author WILLOW FREY [facility] Address [address] [place] [address] Care Team Providers Care Business Services Intern Name Role Phone WILLOW FREY Unavailable PROBLEMS Type Condition ICD9-CM Code MQX09-AR Code Onset Dates Condition Status SNOMED Code Problem Malignant neoplasm of right lung, unspecified part of lung C34.91 Active 48333318 Problem COPD, severe J44.9 Active 995954853 Problem Pulmonary emphysema, unspecified emphysema type J43.9 Active 76989864 Problem Perennial allergic rhinitis, unspecified allergic rhinitis trigger J30.89 Active 133972151 Problem Obesity (BMI 30-39.9) E66.9 Active 578536217 ALLERGIES Substance Reaction Event Type Date Status [place] (Diagnostic) hives Drug Allergy May, Active Penicillin G Sodium pt voices severe reaction runs in family so she doesn't like to have it given to her Drug Allergy May, Active [place] Flavor hives Drug Allergy May, Active Pappya, Mangos hives Non Drug Allergy May, Active ENCOUNTERS Encounter Location Date Diagnosis [address] [id number], [place] [id number] Mar, [address] [id number], [place] [id number] Jan, Pulmonary emphysema, unspecified emphysema type J43.9 ; Obesity ( BMI 30-39.9) E66.9 ; Thyroid disorder screen Z13.29 ; Malignant neoplasm of right lung, unspecified part of lung C34.91 and Leg cramp R25.[address] [id number], [place] [id number] Dec, Dental examination Z01.[address] [id number] [place] [id number] Oct, COPD, severe J44.[address] [facility] [address] [address] [id number] [place] [id number] Aug, Dental examination Z01.[address] [facility] [address] [id number] [place] [id number] Aug, Dental examination Z01.[address] [facility] [address] [address] [id number] [place] [id number] Jul, Dental examination Z01.[address] [facility] [address] [id number] [place] [id number] Jul, Dental examination Z01.[address] [facility] [address] [address] [id number] [place] [id number] Jul, Lower extremity edema R60.[address] [facility] [address] [address] [id number] [facility] [place] [id number] 30 Jun, 2017 Cellulitis of left leg L03.[address] [facility] [address] [id number] PARK [facility] [place] [id number] Jun, [facility] [address] [id number] PARK [facility] [place] [id number] 18 Jun, 2017 Encounter for dental examination and cleaning without abnormal findings Z01.[address] [facility] [address] [id number] [place] [id number] 16 Jun, 2017 Cellulitis of left lower extremity L03.[address] [facility] [address] [id number] [place] [id number] 15 Jun, [address] [facility] [address] [id number] [place] [id number] Jun, [facility] [address] [id number] [place] [id number] May, [facility] [address] [id number] [place] [id number] May, Dental examination Z01.[address] [facility] [address] [id number], [place] [id number] May, [address] [id number], [place] [id number] May, Dental examination Z01.[address] [id number], [place] 110075674 Apr, COPD, severe J44.9 ; Shortness of breath R06.02 and Perennial allergic rhinitis, unspecified allergic rhinitis trigger J30.[address] [id number], [place] [address]67[address] Oct, Thyroid disorder screen Z13.29 ; Screening cholesterol level Z13.220 ; Pulmonary emphysema, unspecified emphysema type J43.9 and Obesity ( BMI 30-39.9) E66.[address] [id number], [place] [id number] Oct, [address] [id number], [place] [id number] Oct, Pulmonary emphysema, unspecified emphysema type J43.9 ; Perennial allergic rhinitis, unspecified allergic rhinitis trigger J30.89 ; Screening cholesterol level Z13.220 ; Thyroid disorder screen Z13.29 and Obesity (BMI 30- 39.9) E66.9 IMMUNIZATIONS No Known Immunizations SOCIAL HISTORY Never Assessed REASON FOR VISIT HEMA PLAN OF CARE Activity Details Follow Up prn Reason:SRP VITAL SIGNS Blood pressure systolic 117 mmHg 2017-06-01 Blood pressure diastolic 67 mmHg 2017-06-01 MEDICATIONS Medication Instructions Dosage Frequency Start Date End Date Duration Status Vitamin D-3 1000 UNIT Orally Once a day 2 capsules 24h Active Fluticasone Propionate 50 MCG/ACT USE TWO SPRAY NASALLY DAILY. Active Aleve 220 MG Orally every 12 hrs 1 tablet as needed 12h Active Biotin 5000 5 MG Orally Once a day 1 capsule 24h Active Singulair 10 mg Orally Once a day 1 tablet in the evening 24h Active Zyrtec Allergy 10 mg 1 tablet Once a day Orally Active Potassium 99 MG Orally Once a day 1 tablet 24h Active Lutein 20 MG Orally Once a day 1 capsule with a meal 24h Active Collagen Ultra - Active Ventolin HFA 108 (90 Base) MCG/ACT 2 puffs 2 times a day ( DONT USE MORE THAN 1 INHALER A MONTH) Inhalation Active Multivitamin Adult - Active Spiriva HandiHaler 18 MCG 1 capsule Once a day Inhalation Active Dulera 200-5 MCG/ACT 2 puffs Twice a day Inhalation Active RESULTS No Results PROCEDURES Procedure Date Ordered Result Body Site COMP ORAL EVALUATION - NEW/EST PT Jun 01, 2017 INSTRUCTIONS MEDICATIONS ADMINISTERED No Known Medications [...] treatment only. Stage I Dr. [place] Via [facility] Surgical History Complete Hysterectomy 09/2013 Surgical History Gallbladder 04/2011 Surgical History Prolaspe repair enterolysis, uterolysis, sacral colpopexy, excision of sigmoid mass, excision of cul-de-sac peritoneum, abdominal revision of vaginal mesh, cystolcele repair, and cystoscopy with hydrodistention 09/2015 Surgical History Midurethral Sling TVT-Exact and Cystoscopy 05/2013
--- OUTSIDE RECORDS SUMMARY | 2018-05-12 06:12 | XMS REPORT ---
Author Author DESIREE VELA Organization [facility] Address [address] [place] [address] Care Team Providers Care Chemical Equipment Repairer Name Role Phone DESIREE VELA Unavailable PROBLEMS Type Condition ICD9-CM Code EKQ52-KC Code Onset Dates Condition Status SNOMED Code Problem Malignant neoplasm of right lung, unspecified part of lung C34.91 Active 64045936 Problem COPD, severe J44.9 Active 234575518 Problem Pulmonary emphysema, unspecified emphysema type J43.9 Active 97858981 Problem Perennial allergic rhinitis, unspecified allergic rhinitis trigger J30.89 Active 341949147 Problem Obesity (BMI 30-39.9) E66.9 Active 127336821 ALLERGIES Substance Reaction Event Type Date Status [place] (Diagnostic) hives Drug Allergy Jun, Active Penicillin G Sodium pt voices severe reaction runs in family so she doesn't like to have it given to her Drug Allergy Jun, Active [place] Flavor hives Drug Allergy Jun, Active Pappya, Mangos hives Non Drug Allergy Jun, Active ENCOUNTERS Encounter Location Date Diagnosis [facility] [address] [id number] [id number] Mar, [facility] [address] [id number], [place] [id number] Jan, Pulmonary emphysema, unspecified emphysema type J43.9 ; Obesity ( BMI 30-39.9) E66.9 ; Thyroid disorder screen Z13.29 ; Malignant neoplasm of right lung, unspecified part of lung C34.91 and Leg cramp R25.2 [facility] [address] [id number] [place] [id number] Dec, Dental examination Z01.20 [facility] [address] [id number] [place] [id number] Oct, COPD, severe J44.[address] [facility] [address] [address] [id number] [place] [id number] Aug, Dental examination Z01.[address] [facility] [address] [address] [id number] [place] [id number] Aug, Dental examination Z01.[address] [facility] [address] [address] [id number] [place] [id number] Jul, Dental examination Z01.[address] [facility] [address] [address] [id number] [place] [address] Jul, Dental examination Z01.[address] [facility] [address] [id number] [facility] [id number] Jul, Lower extremity edema R60.[address] [facility] [address] [id number] SPRINGS [facility] [id number] 30 Jun, 2017 Cellulitis of left leg L03.[address] [facility] [address] [id number] SPRINGS [facility] [id number] Jun, [facility] [address] [address] [id number] [place]INGS [facility] [id number] 18 Jun, 2017 Encounter for dental examination and cleaning without abnormal findings Z01.[address] [facility] [address] [id number] [place] [id number] 16 Jun, 2017 Cellulitis of left lower extremity L03.[address] [facility] [address] [id number] [place] [id number] 15 Jun, [address] [facility] [address] [id number] [place] [id number] Jun, [facility] [address] [id number] [place] [id number] May, [facility] [address] [id number] [place] [address]39[address]40[address] May, Dental examination Z01.[address] [facility] [address] [address] [id number], [place] [id number] May, [address] [id number], [place] [id number] May, Dental examination Z01.[address] [id number], [place] [id number] Apr, COPD, severe J44.9 ; Shortness of breath R06.02 and Perennial allergic rhinitis, unspecified allergic rhinitis trigger J30.[address] [id number], [place] [id number] Oct, Thyroid disorder screen Z13.29 ; Screening cholesterol level Z13.220 ; Pulmonary emphysema, unspecified emphysema type J43.9 and Obesity ( BMI 30-39.9) E66.[address] [id number][place] [id number] Oct, [address] [id number], [place] [address] Oct, Pulmonary emphysema, unspecified emphysema type J43.9 ; Perennial allergic rhinitis, unspecified allergic rhinitis trigger J30.89 ; Screening cholesterol level Z13.220 ; Thyroid disorder screen Z13.29 and Obesity (BMI 30- 39.9) E66.9 IMMUNIZATIONS No Known Immunizations SOCIAL HISTORY Never Assessed REASON FOR VISIT Pt c/o LLE edema, US done Tues negative for DVT. Swelling started 2-3 weeks ago. Mariana GRANGER PLAN OF CARE Activity Details Follow Up 1 Week in clinic or with PCP Reason:cellulitis FU VITAL SIGNS Height 65.4 in 2017-07-04 Weight 203.7 lbs 2017-07-04 Temperature 98.3 degrees Fahrenheit 2017-07-04 Heart Rate 92 bpm 2017-07-04 Respiratory Rate 16 2017-07-04 BMI 33.48 kg/m2 2017-07-04 Blood pressure systolic 142 mmHg 2017-07-04 Blood pressure diastolic 84 mmHg 2017-07-04 MEDICATIONS Medication Instructions Dosage Frequency Start Date End Date Duration Status Collagen Ultra - Active Vitamin D-3 1000 UNIT Orally Once a day 2 capsules 24h Active Multivitamin Adult - Active Clindamycin HCl 300 MG Orally every 8 hrs 1 capsule 8h 16 Jun, 2017Jun 10 days Active Zyrtec Allergy 10 mg 1 tablet Once a day Orally Active Spiriva HandiHaler 18 MCG 1 capsule Once a day Inhalation Active Biotin 5000 5 MG Orally Once a day 1 capsule 24h Active Ventolin HFA 108 (90 Base) MCG/ACT 2 puffs 2 times a day ( DONT USE MORE THAN 1 INHALER A MONTH) Inhalation Active Lutein 20 MG Orally Once a day 1 capsule with a meal 24h Active Fluticasone Propionate 50 MCG/ACT USE TWO SPRAY NASALLY DAILY. Active Potassium 99 MG Orally Once a day 1 tablet 24h Active Dulera 200-5 MCG/ACT 2 puffs Twice a day Inhalation Active Singulair 10 mg Orally Once a day 1 tablet in the evening 24h Active RESULTS No Results PROCEDURES Procedure Date Ordered Result Body Site [facility] VISIT ESTABLISHED PATIENT Jul 04, 2017 INSTRUCTIONS MEDICATIONS ADMINISTERED No Known Medications [...] treatment only. Stage I Dr. [place] [facility] Surgical History Complete Hysterectomy 09/2013 Surgical History Gallbladder 04/2011 Surgical History Prolaspe repair enterolysis, uterolysis, sacral colpopexy, excision of sigmoid mass, excision of cul-de-sac peritoneum, abdominal revision of vaginal mesh, cystolcele repair, and cystoscopy with hydrodistention 09/2015 Surgical History Midurethral Sling TVT-Exact and Cystoscopy 05/2013
--- OUTSIDE RECORDS SUMMARY | 2018-05-12 06:13 | XMS REPORT ---
Author Author JAMES SIFUENTES [facility] Address [address] [place] [address] Care Team Providers Care Chainstitch Seat Joiner Name Role Phone JAMES SIFUENTES Unavailable PROBLEMS Type Condition ICD9-CM Code UCE52-ZV Code Onset Dates Condition Status SNOMED Code Problem Malignant neoplasm of right lung, unspecified part of lung C34.91 Active 79339042 Problem COPD, severe J44.9 Active 032866060 Problem Pulmonary emphysema, unspecified emphysema type J43.9 Active 62892865 Problem Perennial allergic rhinitis, unspecified allergic rhinitis trigger J30.89 Active 004775753 Problem Obesity (BMI 30-39.9) E66.9 Active 125005499 ALLERGIES No Information ENCOUNTERS Encounter Location Date Diagnosis [facility] [address] [id number] [id number] Jun, [address] [id number] [place] [id number] Mar, Dental examination Z01.[address] [id number] LAKES[place] [id number] Mar, Dental examination Z01.[address] [id number] LAKES[place] [id number] February, Need for hepatitis C screening test Z11.[address] [id number] [place] [id number] Jan, Pulmonary emphysema, unspecified emphysema type J43.9 ; Obesity ( BMI 30-39.9) E66.9 ; Thyroid disorder screen Z13.29 ; Malignant neoplasm of right lung, unspecified part of lung C34.91 and Leg cramp R25.[address] [id number] [place] [id number] Dec, Dental examination Z01.[address] [facility] [address] [id number] [place], [place] [id number] Oct, COPD, severe J44.[address] [facility] [address] [id number] [place] [id number] Aug, Dental examination Z01.[address] [facility] [address] [id number] [place] [id number] Aug, Dental examination Z01.[address] [facility] [address] [id number] [place] [id number] Jul, Dental examination Z01.[address] [facility] [address] [id number] [place] [id number] Jul, Dental examination Z01.[address] [facility] [address] [id number] [facility] [id number] Jul, Lower extremity edema R60.[address] [facility] [address] [id number] VALLEY [facility] [id number] 30 Jun, 2017 Cellulitis of left leg L03.[address] [facility] [address] [id number] VALLEY [facility]PITAL[place] [id number] 26 Jun, [address] [facility] [address] [id number] [place] [id number] 18 Jun, 2017 Encounter for dental examination and cleaning without abnormal findings Z01.[address] [facility] [address] [id number] [place] [id number] 16 Jun, 2017 Cellulitis of left lower extremity L03.[address] [facility] [address] [address] [id number] [place] [id number] 15 Jun, [address] [facility] [address] [id number] [place] [id number] 05 Jun, [address] [facility] [address] [id number] [place] [id number] May, [facility] [address] [address] [id number] [place] [id number] May, Dental examination Z01.[address] [id number] [place] [id number] May, [address] [id number] [place] [id number] May, Dental examination Z01.[address] [id number] [place] [id number] Apr, COPD, severe J44.9 ; Shortness of breath R06.02 and Perennial allergic rhinitis, unspecified allergic rhinitis trigger J30.[address] [id number] LAKES, [place] [id number] Oct, Thyroid disorder screen Z13.29 ; Screening cholesterol level Z13.220 ; Pulmonary emphysema, unspecified emphysema type J43.9 and Obesity ( BMI 30-39.9) E66.[address] [id number] [place] [id number] Oct, [address] [id number] LAK[place] [id number] Oct, Pulmonary emphysema, unspecified emphysema type J43.9 ; Perennial allergic rhinitis, unspecified allergic rhinitis trigger J30.89 ; Screening cholesterol level Z13.220 ; Thyroid disorder screen Z13.29 and Obesity (BMI 30- 39.9) E66.9 IMMUNIZATIONS No Known Immunizations SOCIAL HISTORY Never Assessed REASON FOR VISIT refill PLAN OF CARE VITAL SIGNS MEDICATIONS Medication Instructions Dosage Frequency Start Date End Date Duration Status ProAir HFA 108 (90 Base) MCG/ACT Inhalation 2 times a day (1 inhaler should at least last one month) 2 puffs as needed Oct, Active RESULTS No Results PROCEDURES No Known procedures INSTRUCTIONS MEDICATIONS ADMINISTERED No Known Medications MEDICAL [...] treatment only. Stage I Dr. [place] [facility] Surgical History Complete Hysterectomy 09/2013 Surgical History Gallbladder 04/2011 Surgical History Prolaspe repair enterolysis, uterolysis, sacral colpopexy, excision of sigmoid mass, excision of cul-de-sac peritoneum, abdominal revision of vaginal mesh, cystolcele repair, and cystoscopy with hydrodistention 09/2015 Surgical History Midurethral Sling TVT-Exact and Cystoscopy 05/2013
--- OUTSIDE RECORDS SUMMARY | 2018-05-12 06:13 | XMS REPORT ---
Author Author VALERIE CHAIDEZ [facility] Address [address] [place] [address] Care Team Providers Care Trackman Name Role Phone VALERIE CHAIDEZ Unavailable PROBLEMS Type Condition ICD9-CM Code OPH20-RU Code Onset Dates Condition Status SNOMED Code Problem Malignant neoplasm of right lung, unspecified part of lung C34.91 Active 04890379 Problem COPD, severe J44.9 Active 339073172 Problem Pulmonary emphysema, unspecified emphysema type J43.9 Active 27099637 Problem Perennial allergic rhinitis, unspecified allergic rhinitis trigger J30.89 Active 450744692 Problem Obesity (BMI 30-39.9) E66.9 Active 778138790 ALLERGIES Substance Reaction Event Type Date Status [place] (Diagnostic) hives Drug Allergy Jun, Active Penicillin G Sodium pt voices severe reaction runs in family so she doesn't like to have it given to her Drug Allergy Jun, Active [place] Flavor hives Drug Allergy Jun, Active Pappya, Mang[place] hives Non Drug Allergy Jun, Active ENCOUNTERS Encounter Location Date Diagnosis [address] [id number] [place] [id number] Mar, [address] [id number] [place] [id number] Jan, Pulmonary emphysema, unspecified emphysema type J43.9 ; Obesity ( BMI 30-39.9) E66.9 ; Thyroid disorder screen Z13.29 ; Malignant neoplasm of right lung, unspecified part of lung C34.91 and Leg cramp R25.[address] [id number] [place] [id number] Dec, Dental examination Z01.[address] [id number] [place] [id number] Oct, COPD, severe J44.[address] [facility] [address] [id number] [place] [id number] Aug, Dental examination Z01.[address] [facility] [address] [id number] [place] [id number] Aug, Dental examination Z01.[address] [facility] [address] [id number] [place] [id number] Jul, Dental examination Z01.[address] [facility] [address] [id number] [place] [id number] Jul, Dental examination Z01.[address] [facility] [address] [id number] [place] [id number] Jul, Lower extremity edema R60.[address] [facility] [address] [id number] [id number] 30 Jun, 2017 Cellulitis of left leg L03.[address] [facility] [address] [id number] [place] [id number] Jun, [facility] [address] [id number] [facility] [id number] 18 Jun, 2017 Encounter for dental examination and cleaning without abnormal findings Z01.[address] [facility] [address] [id number] SUBURBAN [facility] [id number] 16 Jun, 2017 Cellulitis of left lower extremity L03.[address] [facility] [address] [id number] [place] [id number] 15 Jun, [address] [facility] [address] [id number] [place] [id number] Jun, [facility] [address] [id number] [place] [id number] May, [facility] [address] [address] [id number] [place] [id number] May, Dental examination Z01.[address] [facility] [address] [id number] [place] [id number] May, [address] [id number] [place] [id number] May, Dental examination Z01.[address] [id number] [place] [id number] Apr, COPD, severe J44.9 ; Shortness of breath R06.02 and Perennial allergic rhinitis, unspecified allergic rhinitis trigger J30.[address] [id number] [place] [id number] Oct, Thyroid disorder screen Z13.29 ; Pulmonary emphysema, unspecified emphysema type J43.9 ; Screening cholesterol level Z13.220 and Obesity (BMI 30- 39.9) E66.[address] [id number] [place] [id number] Oct, [address] [id number] [place] [id number] Oct, Pulmonary emphysema, unspecified emphysema type J43.9 ; Perennial allergic rhinitis, unspecified allergic rhinitis trigger J30.89 ; Screening cholesterol level Z13.220 ; Thyroid disorder screen Z13.29 and Obesity (BMI 30- 39.9) E66.9 IMMUNIZATIONS No Known Immunizations SOCIAL HISTORY Never Assessed REASON FOR VISIT srp PLAN OF CARE Activity Details Follow Up srp misael Reason: VITAL SIGNS Heart Rate 78 bpm 2017-07-06 Blood pressure systolic 140 mmHg 2017-07-06 Blood pressure diastolic 81 mmHg 2017-07-06 MEDICATIONS Medication Instructions Dosage Frequency Start Date End Date Duration Status Biotin 5000 5 MG Orally Once a day 1 capsule 24h Active Multivitamin Adult - Active Vitamin D-3 1000 UNIT Orally Once a day 2 capsules 24h Active Collagen Ultra - Active Zyrtec Allergy 10 mg 1 tablet Once a day Orally Active Spiriva HandiHaler 18 MCG 1 capsule Once a day Inhalation Active Ventolin HFA 108 (90 Base) MCG/ACT 2 puffs 2 times a day ( DONT USE MORE THAN 1 INHALER A MONTH) Inhalation Active Lutein 20 MG Orally Once a day 1 capsule with a meal 24h Active Dulera 200-5 MCG/ACT 2 puffs Twice a day Inhalation Active Fluticasone Propionate 50 MCG/ACT USE TWO SPRAY NASALLY DAILY. Active Potassium 99 MG Orally Once a day 1 tablet 24h Active Singulair 10 mg Orally Once a day 1 tablet in the evening 24h Active Clindamycin HCl 300 MG Orally every 8 hrs 1 capsule 8h Jun,Jun 10 days Active RESULTS No Results PROCEDURES Procedure Date Ordered Result Body Site Periodontal scaling and root Jul 06, 2017 INSTRUCTIONS MEDICATIONS ADMINISTERED No Known Medications [...]
--- OUTSIDE RECORDS SUMMARY | 2018-05-12 06:13 | XMS REPORT ---
Author Author JAMES SIFUENTES [facility] Address [address] [place] [address] Care Team Providers Care Sole Stainer Name Role Phone JAMES SIFUENTES Unavailable PROBLEMS Type Condition ICD9-CM Code [id number] Code Onset Dates Condition Status SNOMED Code Problem Malignant neoplasm of right lung, unspecified part of lung C34.91 Active 61099817 Problem COPD, severe J44.9 Active 544228886 Problem Pulmonary emphysema, unspecified emphysema type J43.9 Active 07528864 Problem Perennial allergic rhinitis, unspecified allergic rhinitis trigger J30.89 Active 671455504 Problem Obesity (BMI 30-39.9) E66.9 Active 602731268 ALLERGIES No Information ENCOUNTERS Encounter Location Date Diagnosis [facility] [address] [id number][place] [id number] Mar, [address] [id number], [place] [id number] Jan, Pulmonary emphysema, unspecified emphysema type J43.9 ; Obesity ( BMI 30-39.9) E66.9 ; Thyroid disorder screen Z13.29 ; Malignant neoplasm of right lung, unspecified part of lung C34.91 and Leg cramp R25.[address] [id number], [place] [id number] Dec, Dental examination Z01.[address] [id number], [place] [id number] Oct, COPD, severe J44.[address] [id number], [place] [id number] Aug, Dental examination Z01.[address] [id number], [place] [id number] Aug, Dental examination Z01.[address] [facility] [address] [id number] [place] [id number] Jul, Dental examination Z01.[address] [facility] [address] [id number] [place] [id number] Jul, Dental examination Z01.[address] [facility] [address] [id number] [place] [id number] 13 Jul, 2017 Lower extremity edema R60.[address] [facility] [address] [id number] [place] [id number] 30 Jun, 2017 Cellulitis of left leg L03.[address] [facility] [address] [id number] [place] [id number] 26 Jun, [address] [facility] [address] [id number] [facility] [id number] 18 Jun, 2017 Encounter for dental examination and cleaning without abnormal findings Z01.[address] [facility] [address] [id number] [place] [id number] 16 Jun, 2017 Cellulitis of left lower extremity L03.[address] [facility] [address] [id number] [place] [id number] 15 Jun, [address] [facility] [address] [id number] [facility] [id number] Jun, [facility] [address] [id number] [place] [id number] May, [facility] [address] [id number] [place] [id number] May, Dental examination Z01.[address] [facility] [address] [id number] [place] [id number] May, [facility] [address] [id number] [place] [id number] May, Dental examination Z01.[address] [facility] [address] [id number] [place] [id number] Apr, COPD, severe J44.9 ; Shortness of breath R06.02 and Perennial allergic rhinitis, unspecified allergic rhinitis trigger J30.89 [facility] [address] [id number] [place] [id number] Oct, Thyroid disorder screen Z13.29 ; Pulmonary emphysema, unspecified emphysema type J43.9 ; Screening cholesterol level Z13.220 and Obesity (BMI 30- 39.9) E66.9 [facility] [address] [id number] [place] [id number] Oct, [facility] [address] [id number] [place] [id number] Oct, Pulmonary emphysema, unspecified emphysema type J43.9 ; Perennial allergic rhinitis, unspecified allergic rhinitis trigger J30.89 ; Screening cholesterol level Z13.220 ; Thyroid disorder screen Z13.29 and Obesity (BMI 30- 39.9) E66.9 IMMUNIZATIONS No Known Immunizations SOCIAL HISTORY Never Assessed REASON FOR VISIT Rx request PLAN OF CARE VITAL SIGNS MEDICATIONS Unknown [...] treatment only. Stage I Dr. [place] [facility] Surgical History Complete Hysterectomy 09/2013 Surgical History Gallbladder 04/2011 Surgical History Prolaspe repair enterolysis, uterolysis, sacral colpopexy, excision of sigmoid mass, excision of cul-de-sac peritoneum, abdominal revision of vaginal mesh, cystolcele repair, and cystoscopy with hydrodistention 09/2015 Surgical History Midurethral Sling TVT-Exact and Cystoscopy 05/2013
--- OUTSIDE RECORDS SUMMARY | 2018-05-12 06:13 | XMS REPORT ---
Author Author MITESH GRIFFITHS [facility] Address [address] [place] [address] Care Team Providers Care Professional Application Designer Name Role Phone MITESH GRIFFITHS Unavailable PROBLEMS Type Condition ICD9-CM Code PDE59-ME Code Onset Dates Condition Status SNOMED Code Problem Malignant neoplasm of right lung, unspecified part of lung C34.91 Active 12070929 Problem COPD, severe J44.9 Active 542801214 Problem Pulmonary emphysema, unspecified emphysema type J43.9 Active 77734479 Problem Perennial allergic rhinitis, unspecified allergic rhinitis trigger J30.89 Active 973357603 Problem Obesity (BMI 30-39.9) E66.9 Active 935704512 ALLERGIES Substance Reaction Event Type Date Status [place] (Diagnostic) hives Drug Allergy Jul, Active Penicillin G Sodium pt voices severe reaction runs in family so she doesn't like to have it given to her Drug Allergy Jul, Active [place] Flavor hives Drug Allergy Jul, Active [place], [place] hives Non Drug Allergy Jul, Active ENCOUNTERS Encounter Location Date Diagnosis [address] [id number] [place] [id number] Mar, [address] [id number] HEIGHTS[place] [id number] Jan, Pulmonary emphysema, unspecified emphysema type J43.9 ; Obesity ( BMI 30-39.9) E66.9 ; Thyroid disorder screen Z13.29 ; Malignant neoplasm of right lung, unspecified part of lung C34.91 and Leg cramp R25.[address] [id number] [place] [id number] Dec, Dental examination Z01.[address] [id number] HEIGHTS[place] [id number] Oct, COPD, severe J44.[address] [facility] [address] [id number] [place] [id number] Aug, Dental examination Z01.[address] [facility] [address] [id number] [place] [id number] Aug, Dental examination Z01.[address] [facility] [address] [id number] [place] [id number] Jul, Dental examination Z01.[address] [facility] [address] [id number] [place] [id number] Jul, Dental examination Z01.[address] [facility] [address] [id number] [place] [id number] Jul, Lower extremity edema R60.[address] [facility] [address] [id number] [facility] [id number] 30 Jun, 2017 Cellulitis of left leg L03.[address] [facility] [address] [id number] REGIONAL [facility] [id number] 26 Jun, [address] [facility] [address] [id number] HEIGHTS[place] [id number] 18 Jun, 2017 Encounter for dental examination and cleaning without abnormal findings Z01.[address] [facility] [address] [id number] [place] [id number] 16 Jun, 2017 Cellulitis of left lower extremity L03.[address] [facility] [address] [id number] [place] [id number] 15 Jun, [address] [facility] [address] [id number] [place] [id number] 05 Jun, [address] [facility] [address] [id number] [place] [id number] May, [facility] [address] [id number] [place]IGHT[place] [id number] May, Dental examination Z01.[address] [facility] [address] [id number] [place] [id number] May, [address] [id number] [place]IGHTS[place] [id number] May, Dental examination Z01.[address] [id number] [place]IGHT[place] [id number] Apr, COPD, severe J44.9 ; Shortness of breath R06.02 and Perennial allergic rhinitis, unspecified allergic rhinitis trigger J30.[address] [id number] [place]IGHTS[place] [id number] Oct, Thyroid disorder screen Z13.29 ; Screening cholesterol level Z13.220 ; Pulmonary emphysema, unspecified emphysema type J43.9 and Obesity ( BMI 30-39.9) E66.[address] [id number] [place]IGHT[place] [id number] Oct, [address] [id number] HEIGHTS[place] [id number] Oct, Pulmonary emphysema, unspecified emphysema type J43.9 ; Perennial allergic rhinitis, unspecified allergic rhinitis trigger J30.89 ; Screening cholesterol level Z13.220 ; Thyroid disorder screen Z13.29 and Obesity (BMI 30- 39.9) E66.9 IMMUNIZATIONS No Known Immunizations SOCIAL HISTORY Never Assessed REASON FOR VISIT srp PLAN OF CARE Activity Details Follow Up SRP LL 1hr with anesthesia Reason: VITAL SIGNS Blood pressure systolic 155 mmHg 2017-08-10 Blood pressure diastolic 82 mmHg 2017-08-10 MEDICATIONS Medication Instructions Dosage Frequency Start Date End Date Duration Status Spiriva HandiHaler 18 MCG 1 capsule Once a day Inhalation Active Dulera 200-5 MCG/ACT 2 puffs Twice a day Inhalation Active Collagen Ultra - Active Fluticasone Propionate 50 MCG/ACT USE TWO SPRAY NASALLY DAILY. Active Biotin 5000 5 MG Orally Once a day 1 capsule 24h Active Ventolin HFA 108 (90 Base) MCG/ACT 2 puffs 2 times a day ( DONT USE MORE THAN 1 INHALER A MONTH) Inhalation Active Singulair 10 mg Orally Once a day 1 tablet in the evening 24h Active Lutein 20 MG Orally Once a day 1 capsule with a meal 24h Active Multivitamin Adult - Active Zyrtec Allergy 10 mg 1 tablet Once a day Orally Active Vitamin D-3 1000 UNIT Orally Once a day 2 capsules 24h Active Potassium 99 MG Orally Once a day 1 tablet 24h Active RESULTS No Results PROCEDURES Procedure Date Ordered Result Body Site Periodontal scaling and root Aug 10, 2017 Periodontal scaling and root Aug 10, 2017 INSTRUCTIONS MEDICATIONS ADMINISTERED No Known Medications [...] radiation treatment only. Stage I [facility]. [place] [facility] Surgical History Complete Hysterectomy 09/2013 Surgical History Gallbladder 04/2011 Surgical History Prolaspe repair enterolysis, uterolysis, sacral colpopexy, excision of sigmoid mass, excision of cul-de-sac peritoneum, abdominal revision of vaginal mesh, cystolcele repair, and cystoscopy with hydrodistention 09/2015 Surgical History Midurethral Sling TVT-Exact and Cystoscopy 05/2013
--- OUTSIDE RECORDS SUMMARY | 2018-05-12 06:13 | XMS REPORT ---
Author Author JAMES SIFUENTES [facility] Address [address] [place] [address] Care Team Providers Care Shower Room Attendant Name Role Phone JAMES SIFUENTES Unavailable PROBLEMS Type Condition ICD9-CM Code RFX85-KV Code Onset Dates Condition Status SNOMED Code Problem Malignant neoplasm of right lung, unspecified part of lung C34.91 Active 35888312 Problem COPD, severe J44.9 Active 436285453 Problem Pulmonary emphysema, unspecified emphysema type J43.9 Active 02846871 Problem Perennial allergic rhinitis, unspecified allergic rhinitis trigger J30.89 Active 047542799 Problem Obesity (BMI 30-39.9) E66.9 Active 823383289 ALLERGIES No Information ENCOUNTERS Encounter Location Date Diagnosis [facility] [address] [id number], [place] [id number] Mar, [address] [id number], [place] [id number] Jan, Pulmonary emphysema, unspecified emphysema type J43.9 ; Obesity ( BMI 30-39.9) E66.9 ; Thyroid disorder screen Z13.29 ; Malignant neoplasm of right lung, unspecified part of lung C34.91 and Leg cramp R25.[address] [id number], [place] [id number] Dec, Dental examination Z01.[address] [id number], [place] [id number] Oct, COPD, severe J44.[address] [id number], [place] [id number] Aug, Dental examination Z01.[address] [id number], [place] [id number] Aug, Dental examination Z01.[address] [facility] [address] [id number] [place] [id number] Jul, Dental examination Z01.[address] [facility] [address] [id number] [place] [id number] Jul, Dental examination Z01.[address] [facility] [address] [id number] [place] [id number] 13 Jul, 2017 Lower extremity edema R60.[address] [facility] [address] [id number] [place] [id number] 30 Jun, 2017 Cellulitis of left leg L03.[address] [facility] [address] [id number] [place] [id number] 26 Jun, [address] [facility] [address] [id number] [facility]IEW [facility] [id number] 18 Jun, 2017 Encounter for dental examination and cleaning without abnormal findings Z01.[address] [facility] [address] [id number] [place] [id number] 16 Jun, 2017 Cellulitis of left lower extremity L03.[address] [facility] [address] [id number] [place] [id number] 15 Jun, [address] [facility] [address] [id number] VIEW [facility] [id number] Jun, [facility] [address] [id number] [place] [id number] May, [facility] [address] [id number] [place] [id number] May, Dental examination Z01.[address] [facility] [address] [id number] [place] [id number] May, [facility] [address] [id number] [place] [id number] May, Dental examination Z01.[address] [facility] [address] [id number] [place] [id number] Apr, COPD, severe J44.9 ; Shortness of breath R06.02 and Perennial allergic rhinitis, unspecified allergic rhinitis trigger J30.89 [facility] [address] [id number] [place] [id number] Oct, Thyroid disorder screen Z13.29 ; Pulmonary emphysema, unspecified emphysema type J43.9 ; Screening cholesterol level Z13.220 and Obesity (BMI 30- 39.9) E66.9 [facility] [address] [id number] [place] [id number] Oct, [facility] [address] [place] [address] AVE [id number], [place] [id number] Oct, Pulmonary emphysema, unspecified emphysema type J43.9 ; Perennial allergic rhinitis, unspecified allergic rhinitis trigger J30.89 ; Screening cholesterol level Z13.220 ; Thyroid disorder screen Z13.29 and Obesity (BMI 30- 39.9) E66.9 IMMUNIZATIONS No Known Immunizations SOCIAL HISTORY Never Assessed REASON FOR VISIT Left leg swelling for the past week. Andry SCHWAB PLAN OF CARE VITAL SIGNS Height 65.4 in 2017-06-23 Weight 204.2 lbs 2017-06-23 Temperature 97.8 degrees Fahrenheit 2017-06-23 Heart Rate 100 bpm 2017-06-23 Respiratory Rate 22 2017-06-23 BMI 33.56 kg/m2 2017-06-23 Blood pressure systolic 138 mmHg 2017-06-23 Blood pressure diastolic 78 mmHg 2017-06-23 MEDICATIONS Medication Instructions Dosage Frequency Start Date End Date Duration Status Potassium 99 MG Orally Once a day 1 tablet 24h Active Multivitamin Adult - Active Dulera 200-5 MCG/ACT 2 puffs Twice [...] meal 24h Active Collagen Ultra - Active Singulair 10 mg Orally Once a day 1 tablet in the evening 24h Active Ventolin HFA 108 (90 Base) MCG/ACT 2 puffs 2 times a day ( DONT USE MORE THAN 1 INHALER A MONTH) Inhalation Active Vitamin D-3 1000 UNIT Orally Once a day 2 capsules 24h Active RESULTS No Results PROCEDURES No Known [...] treatment only. Stage I Dr. [place] [facility] Surgical History Complete Hysterectomy 09/2013 Surgical History Gallbladder 04/2011 Surgical History Prolaspe repair enterolysis, uterolysis, sacral colpopexy, excision of sigmoid mass, excision of cul-de-sac peritoneum, abdominal revision of vaginal mesh, cystolcele repair, and cystoscopy with hydrodistention 09/2015 Surgical History Midurethral Sling TVT-Exact and Cystoscopy 05/2013
--- OUTSIDE RECORDS SUMMARY | 2018-05-12 06:13 | XMS REPORT ---
Author Author WILLOW FREY [facility] Address [address] [place] [address] Care Team Providers Care Dusting And Brushing Machine Operator Name Role Phone FREY, WILLOW Unavailable PROBLEMS Type Condition ICD9-CM Code HVR85-GK Code Onset Dates Condition Status SNOMED Code Problem COPD, severe J44.9 Active 531629039 Problem Perennial allergic rhinitis, unspecified allergic rhinitis trigger J30.89 Active 446931843 Problem Obesity (BMI 30-39.9) E66.9 Active 422531855 Problem Pulmonary emphysema, unspecified emphysema type J43.9 Active 83160009 ALLERGIES No Information ENCOUNTERS Encounter Location Date [facility] [address] [id number] [id number] Mar, [facility] [place] [address] [facility] [id number], [place] [id number] Jan, [facility] [place] [address] [facility] [id number], [place] [id number] Dec, Dental examination Z01.20 [facility] [address] [id number], [place] [id number] Oct, COPD, severe J44.9 [facility] [address] [id number], [place] [id number] Aug, Dental examination Z01.20 [facility] [place] [address] [facility] [id number] [place] [id number] Aug, Dental examination Z01.20 [email or web address] [address] [facility] [id number], [place] [id number] Jul, Dental examination Z01.20 [facility]ITALTravel [address].[email or web address] [id number], [place] [id number] Jul, Dental examination Z01.20 [facility] [address] [id number], [place] [id number] 13 Jul, 2017 Lower extremity edema R60.[address] [facility] [address] [id number], [place] [id number] 30 Jun, 2017 Cellulitis of left leg L03.[address] [facility] [address] [id number], [place] [id number] 26 Jun, [address] [facility] [address] [id number], [place] [id number] 18 Jun, 2017 Encounter for dental examination and cleaning without abnormal findings Z01.[address] [facility] [address] [id number], [place] [id number] 16 Jun, 2017 Cellulitis of left lower extremity L03.116 [facility] [address] [id number], [place] [id number] 15 Jun, [address] [facility] [address] [id number], [place] [id number] Jun, [facility] [address] [id number], [place] [id number] May, [facility] [address] [id number], [place] [id number] May, Dental examination Z01.20 [facility] [address] [id number], [place] [id number] May, [facility] [address] [id number], [place] [id number] May, Dental examination Z01.20 [facility] [address] [id number], [place] [id number] Apr, COPD, severe J44.9 ; Shortness of breath R06.02 and Perennial allergic rhinitis, unspecified allergic rhinitis trigger J30.[address] [facility] [address] [id number], [place] [id number] Oct, Thyroid disorder screen Z13.29 ; Screening cholesterol level Z13.220 ; Pulmonary emphysema, unspecified emphysema type J43.9 and Obesity ( BMI 30-39.9) E66.9 [facility] [id number] [place] [id number] Oct, [facility] [address] [id number] [place] [id number] Oct, Pulmonary emphysema, unspecified emphysema type J43.9 ; Perennial allergic rhinitis, unspecified allergic rhinitis trigger J30.89 ; Screening cholesterol level Z13.220 ; Thyroid disorder screen Z13.29 and Obesity (BMI 30- 39.9) E66.9 IMMUNIZATIONS No Known Immunizations SOCIAL HISTORY Never Assessed REASON FOR VISIT dental scheduling questions PLAN OF CARE VITAL SIGNS MEDICATIONS Unknown [...]
[2018-05-12] MEDS ORDERED: LACTATED RINGERS 1,000 ML IV STA (06:58)
[2018-05-12] MEDS ORDERED: LACTATED RINGERS 1,000 ML IV ONE (07:01)
[2018-05-12] MEDS ORDERED: proPOfol 200 MG/20 ML (DIPRIVAN) VIAL IV ONE (07:17)
[2018-05-12] MEDS ORDERED: SUCCINYLCHOLINE INJ 100 MG/5 ML SYR ONE (07:17)
[2018-05-12] MEDS ORDERED: ROCURONIUM 10 MG/ML 5 ML SYRINGE IV ONE (07:17)
[2018-05-12] MEDS ORDERED: fentaNYL INJECTION 100 MCG/2 ML AMP ONE (07:18)
[2018-05-12] MEDS ORDERED: MIDAZOLAM 2 MG/2 ML (VERSED) VIAL ONE ×2 (07:18→09:52)
--- NOTE | 2018-05-12 07:40 | Progress Note-Pre Operative ---
Pre-Operative Progress Note H&P Reviewed The H&P was reviewed, patient examined and no changes noted. Time Seen by Provider: 07:40 Date H&P Reviewed: May 12, 2018 Time H&P Reviewed: 07:40 Pre-Operative Diagnosis: Lung mass KARIME ERNANDEZ DO May 12, 2018 07:40
--- NOTE | 2018-05-12 09:04 | Pulmonary Procedures ---
Pulmonary Procedures Date of Procedure Date of Service: May 12, 2018 Bronch Bronchoscopy with Percepta brushes x2 were obtained from odessa, RLL BAL, washing RLL EBUS with bx of station 7 Lymph nodes Preop DX: mediastinal lymphadenopathy] PostOP DX: same No endobronchial masses noted Complications: None Pt was sedated per anesthesia. Bronchoscopy was advanced through the ET tube and an anatomical undertaken down to the segmental bronchi bilaterally. No endobronchial lesions noted. Percepta brushes x2 were obtained from odessa BAL, and washing was obtained from the RLL. EBUS was then advanced through ET tube and the mediastinum was US. Station [7] lymph nodes were sampled via needle bx under US guidance. Pt tolerated procedure well. No complications noted. KARIME ERNANDEZ DO May 12, 2018 09:04
[2018-05-12] MEDS ORDERED: ONDANSETRON 4 MG/2 ML (SDV) Z0FRAN ONE (09:33)
[2018-05-12] MEDS ORDERED: GLYCOPYRROLATE 0.2 MG/ML (ROBINUL) 2 ML VIAL ONE (09:33)
[2018-05-12] MEDS ORDERED: DEXAMETHASONE 10 MG/ML (DECADRON) 1 ML VIAL ONE (09:33)
[2018-05-12] MEDS ORDERED: NEOSTIGMINE 1 MG/ML 5 ML SYRINGE ONE (09:33)
--- NOTE | 2018-05-12 10:07 | Diagnostic Imaging Report ---
Indication: Post bronchoscopy Comparison: 10/01/2017 Findings: Upright portable view of the chest is obtained. Heart size is normal. The pulmonary vessels appear unremarkable. There is no pneumothorax or pleural fluid demonstrated. There is a 5.1 cm masslike opacity in the medial right lung base. Impression: 5.1 cm masslike density in the medial right lung base. No additional significant abnormality is seen. There is no evidence of pneumothorax. Dictated by: Dictated on workstation # [id number]
--- NOTE | 2018-05-12 10:43 | Anesthesia-General Post-Op ---
General Patient Condition Mental Status/LOC: Same as Preop Cardiovascular: Satisfactory Nausea/Vomiting: Absent Respiratory: Satisfactory Pain: Controlled Complications: Absent Post Op Complications Complications None Follow Up Care/Instructions Patient Instructions None needed. Anesthesia/Patient Condition Patient Condition Patient is doing well, no complaints, stable vital signs, no apparent adverse anesthesia problems. No complications reported per nursing. MARTINE AVALOS CRNA May 12, 2018 10:43
[2018-05-12] MEDS ORDERED: SEVOFLURANE (ULTANE) 15 ML INHAL SOLN ONE (10:54)
== END 2018-05-12 13:20 | disposition home or self-care (01) ==
LOC: ENDO 06:08
PROVIDERS: ATTEND Internal Medicine Critical Care Medicine
DX: R91.8 Other nonspecific abnormal finding of lung field (principal); C77.1 Secondary and unspecified malignant neoplasm of intrathoracic lymph nodes; J44.9 Chronic obstructive pulmonary disease, unspecified; J45.909 Unspecified asthma, uncomplicated; Z87.891 Personal history of nicotine dependence
CPT/HCPCS: 71045; 87070; 87101; 87116; 87205; 94664

== ENCOUNTER 2018-05-27 09:05 | Outpatient (RCR) | payer MEDICARE, MEDICAID ==
[2018-04-08 14:14] LABS: BASOPHILS % (AUTO) 0 % (0-10); EOSINOPHILS # (AUTO) 0.1 10^3/uL (0.0-0.3); EOSINOPHILS % (AUTO) 1 % (0-10); HEMATOCRIT 41 % (35-52); HEMOGLOBIN 13.4 G/DL (11.5-16.0); LYMPHOCYTES # (AUTO) 0.9 X 10^3 (1.0-4.0); LYMPHOCYTES % (AUTO) 14 % (12-44); MEAN CORPUSCULAR HEMOGLOBIN 31 PG (25-34); MEAN CORPUSCULAR HGB CONC 33 G/DL (32-36); MEAN CORPUSCULAR VOLUME 93 FL (80-99); MEAN PLATELET VOLUME 10.1 FL (7.4-10.4); MONOCYTES # (AUTO) 0.5 X 10^3 (0.0-1.0); MONOCYTES % (AUTO) 7 % (0-12); NEUTROPHILS % (AUTO) 77 % (42-75); PLATELET COUNT 240 10^3/uL (130-400); RED BLOOD COUNT 4.36 10^6/uL (4.35-5.85); RED CELL DISTRIBUTION WIDTH 13.4 % (10.0-14.5); WHITE BLOOD COUNT 6.5 10^3/uL (4.3-11.0)
[2018-04-08 14:32] LABS: ALANINE AMINOTRANSFERASE 20 U/L (0-55); ALKALINE PHOSPHATASE 83 U/L (40-136); BILIRUBIN,TOTAL 0.5 MG/DL (0.1-1.0); BUN/CREATININE RATIO 16; CALCIUM 8.9 MG/DL (8.5-10.1); CARBON DIOXIDE 23 MMOL/L (21-32); CHLORIDE 110 MMOL/L (98-107); CREATININE SERUM 0.89 MG/DL (0.60-1.30); GFR ESTIMATED > 60; GLUCOSE 101 MG/DL (70-105); POTASSIUM 4.3 MMOL/L (3.6-5.0); SODIUM 142 MMOL/L (135-145); TOTAL PROTEIN 6.3 GM/DL (6.4-8.2)
== END 2018-06-02 13:36 | disposition home or self-care (01) ==
LOC: ONC 09:05
PROVIDERS: ATTEND Internal Medicine Hematology & Oncology
DX: Z51.0 Encounter for antineoplastic radiation therapy (principal); C34.31 Malignant neoplasm of lower lobe, right bronchus or lung; J44.9 Chronic obstructive pulmonary disease, unspecified; Z87.891 Personal history of nicotine dependence
CPT/HCPCS: 36415; 77290; 77295; 77300; 77334; 77470; 80053; 81235; 85025; 88381; 99213; 99214

== ENCOUNTER → 2018-06-03 | Outpatient (CLI) | payer MEDICARE, MEDICAID ==
[~2018-06-03] MED LIST changes: +CATHETER FLUSH 10 ML SYR IV PRN; +IOHEXOL 350 MG/ML 150 ML (OMNIPAQUE 350) VIAL IV ONE; +NS 100 ML (IVPB) BAG IV ONE
[2018-06-03 15:32] LABS: BUN/CREATININE RATIO 21; GFR ESTIMATED > 60
--- NOTE | 2018-06-03 16:28 | Diagnostic Imaging Report ---
PROCEDURE: CT angiography of the chest with contrast. TECHNIQUE: Multiple contiguous axial images were obtained through the chest after uneventful bolus administration of intravenous contrast. Reconstructed CTA MIP acquisitions were also performed. INDICATION: Shortness of breath. History of lung cancer. COMPARISON: 04/08/2018. FINDINGS: There is moderate opacification of the aorta and pulmonary arteries. There was mechanical issue with the CT scan which required repeat bolus injection. The aorta shows atherosclerotic change without evidence of aneurysm. No filling defects are seen within the pulmonary arteries to indicate pulmonary emboli. There is patchy alveolar infiltrate in the right lower lobe posteriorly with air bronchograms. This was present previously on 04/08/2018 and shows no significant change. There is associated bronchiectasis. There is obstructive interstitial lung disease again noted bilaterally with some scattered mild groundglass infiltrates. Severe apical bullous emphysema noted. No pleural effusions or pericardial effusions. No mediastinal or hilar adenopathy of pathologic size. IMPRESSION: 1. Persistent density in the right lung base without significant change. This does contain air bronchograms as well as bronchiectasis. This is consistent with patient's history of carcinoma of the lung. 2. No findings to suggest pulmonary emboli. 3. Severe bullous emphysema noted throughout. Dictated by: Dictated on workstation # [id number]
== END ==
LOC: RAD 14:44
PROVIDERS: ATTEND Internal Medicine Critical Care Medicine
DX: J47.9 Bronchiectasis, uncomplicated (principal); J43.9 Emphysema, unspecified; R91.8 Other nonspecific abnormal finding of lung field
CPT/HCPCS: 36415; 71275; 82565; 84520

== ENCOUNTER 2018-06-28 15:14 | Outpatient (CLI) | payer MEDICARE, MEDICAID ==
[~2018-06-28] VITALS: Ht 165.1 cm; Wt 91.2 kg
[~2018-06-28 15:14] MED LIST changes: -CATHETER FLUSH 10 ML SYR IV PRN; -IOHEXOL 350 MG/ML 150 ML (OMNIPAQUE 350) VIAL IV ONE; -NS 100 ML (IVPB) BAG IV ONE
[2018-06-30] MEDS ORDERED: ACHD5005 PO (09:55)
== END 2018-06-28 15:23 | disposition home or self-care (01) ==
LOC: PREOP 15:14
PROVIDERS: ATTEND Surgery
DX: Z01.818 Encounter for other preprocedural examination (principal)

== ENCOUNTER 2018-06-30 06:53 | Day surgery (SDC) | payer MEDICARE, MEDICAID ==
[~2018-06-30] VITALS: Ht 165.1 cm; Wt 91.2 kg
--- OUTSIDE RECORDS SUMMARY | 2018-06-30 06:57 | XMS REPORT ---
Author Author MITESH GRIFFITHS [facility] DIANE Address [address] [place] [address] Care Team Providers Care Kitchen Food Assembler Name Role Phone MITESH GRIFFITHS Unavailable PROBLEMS Type Condition ICD9-CM Code BJM15-UL Code Onset Dates Condition Status SNOMED Code Problem Malignant neoplasm of right lung, unspecified part of lung C34.91 Active 77421651 Problem COPD, severe J44.9 Active 863134299 Problem Pulmonary emphysema, unspecified emphysema type J43.9 Active 17566096 Problem Perennial allergic rhinitis, unspecified allergic rhinitis trigger J30.89 Active 158393689 Problem Obesity (BMI 30-39.9) E66.9 Active 898667148 ALLERGIES No Information ENCOUNTERS Encounter Location Date Diagnosis [facility] [address] [id number] [id number] Jun, [facility] [address] [id number] [place] [id number] Jun, [facility] [address] [id number], [place] [id number] May, Dental examination Z01.[address] [id number], [place] [id number] Mar, Dental examination Z01.20 [facility] [address] [id number], [place] [id number] Mar, Dental examination Z01.[address] [id number] [place] [address] [id number] February, Need for hepatitis C screening test Z11.59 [facility] [address] [id number] [place] [id number] Jan, Pulmonary emphysema, unspecified emphysema type J43.9 ; Obesity ( BMI 30-39.9) E66.9 ; Thyroid disorder screen Z13.29 ; Malignant neoplasm of right lung, unspecified part of lung C34.91 and Leg cramp R25.[address] [facility] [address] [id number], [place] [id number] Dec, Dental examination Z01.[address] [facility] [address] [id number] REG[facility] [id number] Oct, COPD, severe J44.[address] [facility] [address] [id number], [place] [id number] Aug, Dental examination Z01.[address] [facility] [address] [id number], [place] [id number] Aug, Dental examination Z01.[address] [facility] [address] [id number], [place] [id number] Jul, Dental examination Z01.[address] [facility] [address] [id number], [place] [id number] Jul, Dental examination Z01.[address] [facility] [address] [id number], [place] [id number] Jul, Lower extremity edema R60.0 [facility] [address] [address] [id number], [place] [id number] 30 Jun, 2017 Cellulitis of left leg L03.116 [facility] [address] [id number], [place] [id number] Jun, [facility] [address] [id number], [place] [id number] 18 Jun, 2017 Encounter for dental examination and cleaning without abnormal findings Z01.[address] [facility] [address] [id number], [place] [id number] 16 Jun, 2017 Cellulitis of left lower extremity L03.[address] [facility] [address] [id number], [place] [id number] 15 Jun, [address] [facility] [address] [id number], [place] [id number] Jun, [facility] Duarte [facility] [id number], [place] [id number] May, [facility] [id number], [place] [id number] May, Dental examination Z01.20 [facility] DIANE [address] [place] [address] [id number], [place] [id number] May, [facility] [id number], [place] [id number] May, Dental examination Z01.20 [facility] DIANE [address] [place] [address] [id number], [place] [id number] Apr, COPD, severe J44.9 ; Shortness of breath R06.02 and Perennial allergic rhinitis, unspecified allergic rhinitis trigger J30.89 [facility] DIANE [address] [place] [address] [id number], [place] [phone] Oct, Thyroid disorder screen Z13.29 ; Pulmonary emphysema, unspecified emphysema type J43.9 ; Screening cholesterol level Z13.220 and Obesity (BMI 30- 39.9) E66.9 [facility] Islas[address] [place] [address] [id number], [place] [id number] Oct, [facility] DIANE [address] [place] [address] [id number], [place] [phone] Oct, Pulmonary emphysema, unspecified emphysema type J43.9 ; Perennial allergic rhinitis, unspecified allergic rhinitis trigger J30.89 ; Screening cholesterol level Z13.220 ; Thyroid disorder screen Z13.29 and Obesity (BMI 30- 39.9) E66.9 IMMUNIZATIONS No Known Immunizations SOCIAL HISTORY Never Assessed REASON FOR VISIT 3 [facility] PLAN OF CARE VITAL SIGNS MEDICATIONS Unknown Medications RESULTS No Results PROCEDURES Procedure Date Ordered Result Body Site Billing Notes on claim March 25, 2018 INSTRUCTIONS MEDICATIONS ADMINISTERED No Known Medications MEDICAL [...]
--- OUTSIDE RECORDS SUMMARY | 2018-06-30 06:57 | XMS REPORT ---
Author Author KARLOS DANYELLE Organization [facility] Address [address] [place] [address] Care Team Providers Care Digital Project Coordinator Name Role Phone DANYELLE EVERETT Unavailable PROBLEMS Type Condition ICD9-CM Code ENK22-XQ Code Onset Dates Condition Status SNOMED Code Problem Malignant neoplasm of right lung, unspecified part of lung C34.91 Active 88963915 Problem COPD, severe J44.9 Active 795142781 Problem Pulmonary emphysema, unspecified emphysema type J43.9 Active 54264806 Problem Perennial allergic rhinitis, unspecified allergic rhinitis trigger J30.89 Active 125901443 Problem Obesity (BMI 30-39.9) E66.9 Active 105500190 ALLERGIES No Information ENCOUNTERS Encounter Location Date Diagnosis [facility] [id number] [place] [id number] Jun, [facility] [id number] [place] [id number] May, [facility] [id number] [place] [id number] May, Dental examination Z01.[address] [id number] [place] [id number] Mar, Dental examination Z01.[address] [id number] [place] [id number] Mar, Dental examination Z01.[address] [id number] [place] [id number] February, Need for hepatitis C screening test Z11.[address] [id number] [place] [id number] Jan, Pulmonary emphysema, unspecified emphysema type J43.9 ; Obesity ( BMI 30-39.9) E66.9 ; Thyroid disorder screen Z13.29 ; Malignant neoplasm of right lung, unspecified part of lung C34.91 and Leg cramp R25.2 [facility] [address] [id number] [place] [id number] Dec, Dental examination Z01.20 [facility] [address] [id number] [place] [id number] Oct, COPD, severe J44.[address] [facility] [address] [id number] [place] [id number] Aug, Dental examination Z01.[address] [facility] [address] [id number] [place] [id number] Aug, Dental examination Z01.20 [facility] [address] [id number] [place] [id number] Jul, Dental examination Z01.20 [facility] [address] [id number] [place] [id number] Jul, Dental examination Z01.[address] [facility] [address] [id number] [place] [id number] Jul, Lower extremity edema R60.0 [facility] [address] [id number] [place] [id number] 30 Jun, 2017 Cellulitis of left leg L03.116 [facility] [address] [id number] [place] [id number] Jun, [facility] [address] [id number] [place] [id number] Jun, Encounter for dental examination and cleaning without abnormal findings Z01.[address] [facility] [address] [id number] [place] [id number] 16 Jun, 2017 Cellulitis of left lower extremity L03.116 [facility] [address] [id number] [place] [id number] Jun, [facility]ANE [address] [place] [address] [id number] [place] [id number] Jun, [facility] [address] [id number] [place] [id number] May, [facility] [address] [id number] [place] [id number] May, Dental examination Z01.20 [facility] [address]ANE[address]00565100S[place] [id number] May, [facility] MACDIANE[address] [id number] [place] [id number] May, Dental examination Z01.20 [address]00565100S[place] [id number] Apr, COPD, severe J44.9 ; Shortness of breath R06.02 and Perennial allergic rhinitis, unspecified allergic rhinitis trigger J30.[address] [id number] [place] [id number] Oct, Thyroid disorder screen Z13.29 ; Screening cholesterol level Z13.220 ; Pulmonary emphysema, unspecified emphysema type J43.9 and Obesity ( BMI 30-39.9) E66.[address] [id number] [place] [id number] Oct, [address] [id number] [place] [id number] Oct, Pulmonary emphysema, unspecified emphysema type J43.9 ; Perennial allergic rhinitis, unspecified allergic rhinitis trigger J30.89 ; Screening cholesterol level Z13.220 ; Thyroid disorder screen Z13.29 and Obesity (BMI 30- 39.9) E66.9 IMMUNIZATIONS No Known Immunizations SOCIAL HISTORY Never Assessed REASON FOR VISIT Hep C Leann fuentes PLAN OF CARE VITAL SIGNS MEDICATIONS Unknown Medications RESULTS Name Result Date Reference Range HEP C ANTIBODY W/ REFLEX HCV 2018-03-09 HEPATITIS C ANTIBODY NON-REACTIVE NON-REACTIVE SIGNAL TO CUT-OFF 0.01 <1.00 PROCEDURES Procedure Date Ordered Result Body Site LAB NOT BILLED BY [facility] March 09, 2018 ISABELLA, ROUTINE* March 09, 2018 INSTRUCTIONS MEDICATIONS ADMINISTERED No Known Medications [...]
--- OUTSIDE RECORDS SUMMARY | 2018-06-30 06:57 | XMS REPORT ---
Author Author TUNDE MITESH [facility] Address [address] [place] [address] Care Team Providers Care Bisque Grader Name Role Phone MITESH GRIFFITHS Unavailable PROBLEMS Type Condition ICD9-CM Code PXQ12-LL Code Onset Dates Condition Status SNOMED Code Problem Malignant neoplasm of right lung, unspecified part of lung C34.91 Active 20696059 Problem COPD, severe J44.9 Active 201827398 Problem Pulmonary emphysema, unspecified emphysema type J43.9 Active 13188558 Problem Perennial allergic rhinitis, unspecified allergic rhinitis trigger J30.89 Active 014193239 Problem Obesity (BMI 30-39.9) E66.9 Active 784245856 ALLERGIES Substance Reaction Event Type Date Status Osage (Diagnostic) hives Drug Allergy Mar, Active Penicillin G Sodium pt voices severe reaction runs in family so she doesn't like to have it given to her Drug Allergy Mar, Active Schleicher Flavor hives Drug Allergy Mar, Active Pappya, Mangos hives Non Drug Allergy Mar, Active ENCOUNTERS Encounter Location Date Diagnosis [facility] [address] [id number] [place] [id number] Aug, [facility] [address] [id number] [place] [id number] Jun, [facility] [address] [id number] [place] [id number] Jun, [facility] [address] [id number] [place], [place] [id number] May, Dental examination Z01.20 [facility] [address] [id number] [place], [place] 737127586 Mar, Dental examination Z01.20 [facility] [address] [id number] [place], [place] [id number] Mar, Dental examination Z01.20 [facility] [address] [id number] [place], [place] [id number] February, Need for hepatitis C screening test Z11.[address] [facility] [address] [id number] [place], [place] [id number] Jan, Pulmonary emphysema, unspecified emphysema type J43.9 ; Obesity ( BMI 30-39.9) E66.9 ; Thyroid disorder screen Z13.29 ; Malignant neoplasm of right lung, unspecified part of lung C34.91 and Leg cramp R25.2 [facility] [address] [id number] [place], [place] [id number] Dec, Dental examination Z01.20 [facility] [address] [id number] [place] [id number] Oct, COPD, severe J44.9 [facility] [address] [id number] [place] [id number] Aug, Dental examination Z01.20 [facility] [address] [id number] [place] [id number] Aug, Dental examination Z01.20 [facility] [address] [address] [id number] [place], [place] [id number] Jul, Dental examination Z01.20 [facility] [address] [address] [id number] [place], [place] [id number] Jul, Dental examination Z01.20 [facility] [address] [address] [id number] [place], [place] [id number] Jul, Lower extremity edema R60.0 [facility] [address] [id number] [place], [place] [id number] 30 Jun, 2017 Cellulitis of left leg L03.116 [facility] [address] [id number] [place], [place] [id number] Jun, [facility] [address] [id number] [place], [place] [id number] 18 Jun, 2017 Encounter for dental examination and cleaning without abnormal findings Z01.[address] [address] [id number] [place] [id number] 16 Jun, 2017 Cellulitis of left lower extremity L03.[address] [address] [id number] [place], [place] [id number] 15 Jun, [address] [address] [id number] [place], [place] [id number] Jun, [facility] [address] [id number] [place], [place] [id number] May, [facility] [address] [id number] [place], [place] [id number] May, Dental examination Z01.[address] [address] [id number] [place], [place] [id number] May, [facility] [address] [id number] [place], [place] [id number] May, Dental examination Z01.[address] [address] [id number] [place], [place] 367512241 Apr, COPD, severe J44.9 ; Shortness of breath R06.02 and Perennial allergic rhinitis, unspecified allergic rhinitis trigger J30.89 [address] [facility] [address] [address] [id number] [place], [place] [id number] Oct, Thyroid disorder screen Z13.29 ; Screening cholesterol level Z13.220 ; Pulmonary emphysema, unspecified emphysema type J43.9 and Obesity ( BMI 30-39.9) E66.9 [facility] [address] [address] [id number] [place], [place] [id number] Oct, [facility] [address] [address] [id number] [place], [place] [id number] Oct, Pulmonary emphysema, unspecified emphysema type J43.9 ; Perennial allergic rhinitis, unspecified allergic rhinitis trigger J30.89 ; Screening cholesterol level Z13.220 ; Thyroid disorder screen Z13.29 and Obesity (BMI 30- 39.9) E66.9 IMMUNIZATIONS No Known Immunizations SOCIAL HISTORY Never Assessed REASON FOR VISIT 3 [facility] PLAN OF CARE Activity Details Follow Up ADELFO. 3month perio maintenance Reason: VITAL SIGNS Blood pressure systolic 144 mmHg 2018-04-06 Blood pressure diastolic 78 mmHg 2018-04-06 MEDICATIONS Medication Instructions Dosage Frequency Start Date End Date Duration Status Aleve 220 MG Orally every 12 hrs 1 tablet as needed 12h Active Zyrtec Allergy 10 mg 1 tablet Once a day Orally Active Potassium 99 MG Orally Once a day 1 tablet 24h Active Multivitamin Adult - Active Collagen Ultra - Active Albuterol Sulfate (2.5 MG/3ML) 0.083% Inhalation Three times a day as needed for cough/wheeze 3 ml Oct, Active Ventolin HFA 108 (90 Base) MCG/ACT Inhalation every 6 hrs 2 puffs as needed 6h Active Singulair 10 mg Orally Once a day 1 tablet in the evening 24h Active Lutein 20 MG Orally Once a day 1 capsule with a meal 24h Active Biotin 5000 5 MG Orally Once a day 1 capsule 24h Active Spiriva HandiHaler 18 MCG Inhalation Once a day 1 capsule 24h Active Vitamin D-3 1000 UNIT Orally Once a day 2 capsules 24h Active CompAir Nebulizer nebulizer needs machine and tubing Oct, Active Fluticasone Propionate 50 MCG/ACT USE TWO SPRAY NASALLY DAILY. 90 Active Dulera 200-5 MCG/ACT Inhalation Twice a day 2 puffs 12h Active RESULTS No Results PROCEDURES Procedure Date Ordered Result Body Site BITEWINGS - FOUR FILMS April 06, 2018 Periodontal maint procedures April 06, 2018 TOPICAL FLUORIDE VARNISH April 06, 2018 INSTRUCTIONS MEDICATIONS ADMINISTERED No Known Medications [...]
--- OUTSIDE RECORDS SUMMARY | 2018-06-30 06:57 | XMS REPORT ---
Author Author JAMES SIFUENTES [facility] DIANE Address [address] [place] [address] Care Team Providers Care Aircraft Fueler Name Role Phone JAMES SIFUENTES Unavailable PROBLEMS Type Condition ICD9-CM Code MUF64-MY Code Onset Dates Condition Status SNOMED Code Problem Malignant neoplasm of right lung, unspecified part of lung C34.91 Active 30086944 Problem COPD, severe J44.9 Active 113907724 Problem Pulmonary emphysema, unspecified emphysema type J43.9 Active 40447176 Problem Perennial allergic rhinitis, unspecified allergic rhinitis trigger J30.89 Active 654601613 Problem Obesity (BMI 30-39.9) E66.9 Active 469051788 ALLERGIES Substance Reaction Event Type Date Status Minong (Diagnostic) hives Drug Allergy Jan, Active Penicillin G Sodium pt voices severe reaction runs in family so she doesn't like to have it given to her Drug Allergy Jan, Active Kidder Flavor hives Drug Allergy Jan, Active Pappya, Mangos hives Non Drug Allergy Jan, Active ENCOUNTERS Encounter Location Date Diagnosis [facility] [address] [id number], [place] [id number] Jun, [facility] [address] [id number], [place] [id number] May, [address] [id number], [place] [id number] Mar, Dental examination Z01.[address] [id number], [place] [id number] Mar, Dental examination Z01.[address] [id number], [place] [id number] February, Need for hepatitis C screening test Z11.[address] [id number], [place] [id number] Jan, Pulmonary emphysema, unspecified emphysema type J43.9 ; Obesity ( BMI 30-39.9) E66.9 ; Thyroid disorder screen Z13.29 ; Malignant neoplasm of right lung, unspecified part of lung C34.91 and Leg cramp R25.[address] [facility] [address] [id number], [place] 788576920 Dec, Dental examination Z01.[address] [facility] [address] [id number], [place] [id number] Oct, COPD, severe J44.[address] [facility] [address] [id number], [place] 514037198 Aug, Dental examination Z01.20 [facility] [address] [id number], [place] [id number] Aug, Dental examination Z01.[address] [facility] [address] [id number], [place] [id number] Jul, Dental examination Z01.[address] [facility] [address] [id number], [place] [id number] Jul, Dental examination Z01.20 [facility] [address] [id number], [place] [id number] Jul, Lower extremity edema R60.0 [facility] [address] [id number], [place] [id number] 30 Jun, 2017 Cellulitis of left leg L03.116 [facility] [address] [id number], [place] [id number] Jun, [facility] [address] [id number], [place] 850723097 18 Jun, 2017 Encounter for dental examination and cleaning without abnormal findings Z01.[address] [facility] [address] [id number], [place] [id number] 16 Jun, 2017 Cellulitis of left lower extremity L03.[address] [facility] [address] [id number], [place] [id number] Jun, [facility] [address] [id number], [place] [id number] Jun, [facility] [address] [id number], [place] [id number] May, [facility] [address] [id number], [place] [id number] May, Dental examination Z01.20 [facility] [address] [id number], [place] [id number] May, [facility] [address] [id number], [place] [id number] May, Dental examination Z01.20 [facility] DIANE [address] [place] [address] AVE [id number], [place] [id number] Apr, COPD, severe J44.9 ; Shortness of breath R06.02 and Perennial allergic rhinitis, unspecified allergic rhinitis trigger J30.89 [facility] [address] [id number], [place] [id number] Oct, Thyroid disorder screen Z13.29 ; Screening cholesterol level Z13.220 ; Pulmonary emphysema, unspecified emphysema type J43.9 and Obesity ( BMI 30-39.9) E66.9 [facility] [address] [id number], [place] [id number] Oct, [facility] [address] [facility] [id number], [place] [id number] Oct, Pulmonary emphysema, unspecified emphysema type J43.9 ; Perennial allergic rhinitis, unspecified allergic rhinitis trigger J30.89 ; Screening cholesterol level Z13.220 ; Thyroid disorder screen Z13.29 and Obesity (BMI 30- 39.9) E66.9 IMMUNIZATIONS No Known Immunizations SOCIAL HISTORY Never Assessed REASON FOR VISIT check up for med renewal, finished treatment for lung cancer December 21, 2017--- DAGO nolasco PLAN OF CARE Activity Details Follow Up 1 Year Reason:COPD VITAL SIGNS Height 65.4 in 2018-01-28 Weight 196.5 lbs 2018-01-28 Temperature 98.7 degrees Fahrenheit 2018-01-28 Heart Rate 98 bpm 2018-01-28 Respiratory Rate 18 2018-01-28 Oximetry 98 % 2018-01-28 BMI 32.30 kg/m2 2018-01-28 Blood pressure systolic 125 mmHg 2018-01-28 Blood pressure diastolic 77 mmHg 2018-01-28 MEDICATIONS Medication Instructions Dosage Frequency Start Date End Date Duration Status Dulera 200-5 MCG/ACT Inhalation Twice a day 2 puffs 12h Active Aleve 220 MG Orally every 12 hrs 1 tablet as needed 12h Active CompAir Nebulizer nebulizer needs machine and tubing Oct, Active Spiriva HandiHaler 18 MCG Inhalation Once a day 1 capsule 24h Active Multivitamin Adult - Active Collagen Ultra - Active Biotin 5000 5 MG Orally Once a day 1 capsule 24h Active Potassium 99 MG Orally Once a day 1 tablet 24h Active Zyrtec Allergy 10 mg 1 tablet Once a day Orally Active Vitamin D-3 1000 UNIT Orally Once a day 2 capsules 24h Active Singulair 10 mg Orally Once a day 1 tablet in the evening 24h Active Albuterol Sulfate (2.5 MG/3ML) 0.083% Inhalation Three times a day as needed for cough/wheeze 3 ml Oct, Active Ventolin HFA 108 (90 Base) MCG/ACT Inhalation every 6 hrs 2 puffs as needed 6h Active Lutein 20 MG Orally Once a day 1 capsule with a meal 24h Active Fluticasone Propionate 50 MCG/ACT USE TWO SPRAY NASALLY DAILY. 90 Active RESULTS No Results PROCEDURES Procedure Date Ordered Result Body Site LAB [facility] January 28, 2018 VENPALOMO, ROUTINE* January 28, 2018 [facility] VISIT ESTABLISHED PATIENT January 28, 2018 INSTRUCTIONS MEDICATIONS ADMINISTERED No Known Medications [...] radiation treatment only. Stage I Dr. Vinnie Heredia Surgical History Complete Hysterectomy 09/2013 Surgical History Gallbladder 04/2011 Surgical History Prolaspe repair enterolysis, uterolysis, sacral colpopexy, excision of sigmoid mass, excision of cul-de-sac peritoneum, abdominal revision of vaginal mesh, cystolcele repair, and cystoscopy with hydrodistention 09/2015 Surgical History Midurethral Sling TVT-Exact and Cystoscopy 05/2013
[2018-06-30 07:30] VITALS: BP 125/83
[2018-06-30] MEDS ORDERED: PROPOFOL INJECTION 50 ML IV ONE (07:30)
[2018-06-30] MEDS ORDERED: CLINDAMYCIN 600 MG/50 ML IVPB 50 ML IV ONE ×2 (07:30→07:45)
[2018-06-30] MEDS ORDERED: MIDAZOLAM 2 MG/2 ML (VERSED) VIAL ONE (07:30)
[2018-06-30] MEDS ORDERED: DEXAMETHASONE 10 MG/ML (DECADRON) 1 ML VIAL ONE ×2 (07:31→09:28)
[2018-06-30] MEDS ORDERED: LACTATED RINGERS 1,000 ML IV PRN ×2 (07:44)
[2018-06-30] MEDS ORDERED: PRED10TA22 PO (07:47)
[2018-06-30] MEDS ORDERED: CATHETER FLUSH 10 ML SYR IV PRN (08:00)
[2018-06-30] MEDS ORDERED: 0.9% SODIUM CHLORIDE PF INJ 20 ML VIAL ONE (08:08)
[2018-06-30] MEDS ORDERED: LIDOCAINE/EPI 1%-1:200,000 (XYLOCAINE) 10 ML VIAL ONE (08:08)
[2018-06-30] MEDS ORDERED: HEParin (CENTRAL IV FLUSH) 500 UNIT/5 ML SYR ONE (08:08)
[2018-06-30] MEDS ORDERED: fentaNYL INJECTION 100 MCG/2 ML AMP ONE (09:09)
--- NOTE | 2018-06-30 09:15 | Progress Note-Pre Operative ---
Pre-Operative Progress Note H&P Reviewed The H&P was reviewed, patient examined and no changes noted. Time Seen by Provider: 09:09 Date H&P Reviewed: Jun 30, 2018 Time H&P Reviewed: 09:11 Pre-Operative Diagnosis: Lung CA, Venous Insufficiency SNEHA BOLIVAR DO Jun 30, 2018 09:15
--- NOTE | 2018-06-30 09:53 | Progress Note-Post Operative ---
Post-Operative Progess Note Surgeon (s)/Plywood And Veneer Repairer (s) Surgeon SNEHA BOLIVAR DO Plywood And Veneer Repairer: STEVEN Cardenas Pre-Operative Diagnosis Lung CA, Venous Insufficiency Post-Operative Diagnosis Same Procedure & Operative Findings Date of Procedure 06/30/18 Procedure Performed/Findings Demarcus-cath insertion Anesthesia Type IV sedation by WAREHOUSE RECEIVING SUPERVISOR Estimated Blood Loss Estimated blood loss (mL): scant Specimens/Packing Specimens Removed none SNEHA BOLIVAR DO Jun 30, 2018 09:53
[2018-06-30] MEDS ORDERED: ACHD5005 PO (09:55)
--- NOTE | 2018-06-30 09:57 | Discharge Inst-Surgical ---
Discharge Inst-Surgical Depart Medication/Instructions New, Converted or Re-Newed RX: RX Given to Pt/Family Patient Instructions Follow up Appt: Make appointment for 1 week. Instructions: No strenuous activity. May shower in 24 hours, no tub bath or soaking. Use incentive spirometer at home as directed. No Smoking Skin/Wound Care: May remove bandages in am. You need to leave the Dermabond on over incision it will fall off on its own. Symptoms to Report: Appetite Changes, Extremity Discoloration, Numbness/Tingling, Swelling Increased , Bleeding Excessive, Eyesight Changes, Pain Increased, Urine Color Change, Constipation(Persistent), Fever over 101 degree F, Pain/Pressure in chest, Urinating Difficulty, Cough Up/Vomit Blood, Heart Beat Irreg/Pounding, Pain/ Pressure in jaw, Vaginal Bleeding Increase, Cramps in feet or legs, Lightheadedness, Pain/Pressure in shoulder, Diarrhea(Persistent), Memory Changes Suddenly, Questions/Concerns, Weight gain consecutive days, Dizziness/ Fainting, Nausea/Vomiting, Shortness of Breath, Weight gain over 2 pounds If questions or concerns contact your physician Or seek help at emergency department. Activity Activity Instructions: Avoid Stress to Incision Driving Instructions: No Driving/Refer to Diet Discharge Diet: No Restrictions Diet After 24 Hours: Clear Liquid if Nauseous If Any Problems/Questions/Issu: Contact Your Physician, Go to Emergency Room Skin/Wound Care Infection Signs and Symptoms: Increased Redness, Foul Odor of Wound, Increased Drainage, Skin Itchy or Has a Rash, Increased Swelling, Temperature Above 101 F Bathing Instructions: Shower Operative Area Clean and Dry: Keep Incision Clean/Dry Stitches/[place]/Dermabond Dis: Dermabond Ice Pack: Ice On and Off Site (as needed for pain) SNEHA BOLIVAR DO Jun 30, 2018 09:56
--- NOTE | 2018-06-30 10:29 | Diagnostic Imaging Report ---
INDICATION: Groshong placement. TIME OF EXAM: 10:16 AM COMPARISON: Correlation is made with prior study from 05/12/2018. FINDINGS: Left chest wall Port has tip overlying the SVC. No pneumothorax is seen. Emphysematous changes are noted throughout both lungs. IMPRESSION: Groshong catheter placement. No pneumothorax is identified. Dictated by: Dictated on workstation # [id number]
[2018-06-30 10:30] VITALS: BP 119/70
[2018-06-30 11:00] VITALS: BP 120/65
[2018-06-30 11:15] VITALS: BP 120/65
--- NOTE | 2018-06-30 11:58 | Diagnostic Imaging Report ---
Indication: Port placement. Fluoroscopy was provided for Dr. Waddell in the OR during port placement. 5 seconds of fluoroscopy was utilized. Images over the upper chest demonstrate a left-sided port with tip overlying the SVC. Impression: Fluoroscopy for port placement. Dictated by: Dictated on workstation # [id number]
--- NOTE | 2018-06-30 14:42 | OPERATIVE REPORT ---
DATE OF SERVICE: PREOPERATIVE DIAGNOSES: 1. Lung cancer. 2. Venous insufficiency. POSTOPERATIVE DIAGNOSES. 1. Lung cancer. 2. Venous insufficiency. PROCEDURE: Port-A-Cath insertion, left subclavian vein, left anterior chest wall. SURGEON: Manjit Waddell DO. JOURNAL CLERK: GENE Cardenas. ANESTHESIA: IV sedation by the PORCELAIN TECHNICIAN. SPECIMENS: None. BLOOD LOSS: Scant. FLUIDS: Per anesthesia. POSTOPERATIVE CONDITION: Stable. INDICATION FOR PROCEDURE: The patient is a 68-year-old female who unfortunately diagnosed with lung cancer, needs a port for long-term IV access. She has poor venous access and will need chemotherapy. FINDINGS: The patient had a Port-A-Cath placed in left anterior chest wall, left subclavian vein. PROCEDURE NOTE: After informed consent was obtained, the patient was brought to the operating room, placed on table in supine position. She was sterilely prepped and draped in normal fashion. Local lidocaine was used to infiltrate the left anterior chest wall towards the left clavicle where the pocket would be created for the port. She was placed slightly Trendelenburg. Then, using an 18 gauge fine needle advanced under the clavicle, I cannulated the left subclavian vein on the second attempt. Good flash of blood, removed the syringe, placed a guidewire using the Seldinger technique down and then checked with fluoroscopy. It was in good position in the superior vena cava. I removed the needle. I then clamped the guidewire in place. I made a stab incision over the guidewire and then made an incision in left anterior chest wall to create a pocket for the port. I had already infiltrated this area with local, made an incision with #11 blade, carried down to skin into subcutaneous tissue, then deepened down through subcutaneous tissue with Bovie electrocautery, creating a pocket bluntly as well. I then sutured in a 3-0 Vicryl and then elected to place the dilator over the guidewire using Seldinger technique, it went in easily, tunneled the catheter from this stab incision to the port pocket. I then removed the inner portion of the dilator as well as the wire and placed a catheter down the dilator sheath using the Seldinger technique. Again, checked position with fluoroscopy, it was in good position. I removed the dilator sheath and then cut off the distal portion of the catheter attached to the port and then placed a locking mechanism. I then accessed the port using a Brown needle. Good flash of blood and then easily flushed with saline. Then, accessed and got a good flash of blood and then flushed with heparin. I placed a 3-0 Prolene suture on to the port and then placed the port into the pocket, it laid in nicely, took a quick picture with the fluoroscopy and there were no kinks. Good nice turn of the catheter. This was then sutured in place with a 3-0 Prolene. Then, I closed the incision, closing the deep subcutaneous tissue with 3-0 Vicryl, 2 interrupted sutures and closed the skin with 4-0 undyed Monocryl, 3 interrupted subcuticular stitches as well as closing the small stab incision with a 4-0 undyed Monocryl simple subcuticular stitch. Area was cleaned and dried. Dermabond placed as well as Band-Aids. The patient then transferred to recovery room in stable condition. Sponge, instrument and needle counts correct at the end of the case. Job ID: [id number] DocumentID: [id number] Dictated Date: 06/30/2018 10:01:37 Filling Hand Date: 06/30/2018 14:42:03 Dictated By: MANJIT WADDELL DO
== END 2018-06-30 11:40 | disposition home or self-care (01) ==
LOC: SDC 06:53
PROVIDERS: ATTEND Surgery
DX: C34.90 Malignant neoplasm of unspecified part of unspecified bronchus or lung (principal); I87.2 Venous insufficiency (chronic) (peripheral); Z11.2 Encounter for screening for other bacterial diseases; J43.9 Emphysema, unspecified; Z92.3 Personal history of irradiation; Z87.891 Personal history of nicotine dependence; F41.9 Anxiety disorder, unspecified; Z79.899 Other long term (current) drug therapy
CPT/HCPCS: 71045; 87081

== ENCOUNTER 2018-07-16 12:43 | Outpatient (RCR) | payer MEDICARE, MEDICAID ==
[2018-06-25 14:01] LABS: BASOPHILS % (AUTO) 0 % (0-10); EOSINOPHILS % (AUTO) 0 % (0-10); HEMATOCRIT 46 % (35-52); HEMOGLOBIN 15.1 G/DL (11.5-16.0); LYMPHOCYTES # (AUTO) 0.3 X 10^3 (1.0-4.0); LYMPHOCYTES % (AUTO) 3 % (12-44); MEAN CORPUSCULAR HEMOGLOBIN 31 PG (25-34); MEAN CORPUSCULAR HGB CONC 33 G/DL (32-36); MEAN CORPUSCULAR VOLUME 93 FL (80-99); MONOCYTES # (AUTO) 0.6 X 10^3 (0.0-1.0); MONOCYTES % (AUTO) 6 % (0-12); NEUTROPHILS # (AUTO) 8.9 X 10^3 (1.8-7.8); NEUTROPHILS % (AUTO) 91 % (42-75); PLATELET COUNT 234 10^3/uL (130-400); RED BLOOD COUNT 4.92 10^6/uL (4.35-5.85); RED CELL DISTRIBUTION WIDTH 14.9 % (10.0-14.5); WHITE BLOOD COUNT 9.8 10^3/uL (4.3-11.0)
[2018-06-25 14:23] LABS: ALBUMIN 4.5 GM/DL (3.2-4.5); BILIRUBIN,TOTAL 0.5 MG/DL (0.1-1.0); CALCIUM 10.2 MG/DL (8.5-10.1); CREATININE SERUM 0.96 MG/DL (0.60-1.30)
--- NOTE | 2018-06-30 14:18 | Anesthesia-General Post-Op ---
MAC Patient Condition Mental Status/LOC: Same as Preop Cardiovascular: Satisfactory Nausea/Vomiting: Absent Respiratory: Satisfactory Pain: Controlled Complications: Absent Post Op Complications Complications None Follow Up Care/Instructions Patient Instructions None needed. Anesthesiology Discharge Order Discharge Order Patient is doing well, no complaints, stable vital signs, no apparent adverse anesthesia problems. No complications reported per nursing. JENIFER ROBLERO CRNA Jun 30, 2018 14:18
[2018-07-05 11:26] LABS: BASOPHILS % (AUTO) 0 % (0-10); EOSINOPHILS % (AUTO) 0 % (0-10); HEMATOCRIT 42 % (35-52); HEMOGLOBIN 14.2 G/DL (11.5-16.0); LYMPHOCYTES # (AUTO) 0.2 X 10^3 (1.0-4.0); LYMPHOCYTES % (AUTO) 2 % (12-44); MEAN CORPUSCULAR HEMOGLOBIN 31 PG (25-34); MEAN CORPUSCULAR HGB CONC 34 G/DL (32-36); MEAN CORPUSCULAR VOLUME 92 FL (80-99); MEAN PLATELET VOLUME 9.7 FL (7.4-10.4); MONOCYTES # (AUTO) 0.3 X 10^3 (0.0-1.0); MONOCYTES % (AUTO) 4 % (0-12); NEUTROPHILS # (AUTO) 7.4 X 10^3 (1.8-7.8); NEUTROPHILS % (AUTO) 94 % (42-75); PLATELET COUNT 224 10^3/uL (130-400); RED BLOOD COUNT 4.57 10^6/uL (4.35-5.85); RED CELL DISTRIBUTION WIDTH 15.2 % (10.0-14.5); WHITE BLOOD COUNT 7.9 10^3/uL (4.3-11.0)
[2018-07-05 11:52] LABS: BUN/CREATININE RATIO 32; CALCIUM 9.5 MG/DL (8.5-10.1); CARBON DIOXIDE 23 MMOL/L (21-32); CHLORIDE 108 MMOL/L (98-107); CREATININE SERUM 0.85 MG/DL (0.60-1.30); GFR ESTIMATED > 60; GLUCOSE 128 MG/DL (70-105); POTASSIUM 4.4 MMOL/L (3.6-5.0); SODIUM 140 MMOL/L (135-145)
[2018-07-12 11:00] LABS: BASOPHILS % (AUTO) 0 % (0-10); EOSINOPHILS % (AUTO) 0 % (0-10); HEMATOCRIT 41 % (35-52); HEMOGLOBIN 14.2 G/DL (11.5-16.0); LYMPHOCYTES # (AUTO) 0.1 X 10^3 (1.0-4.0); LYMPHOCYTES % (AUTO) 2 % (12-44); MEAN CORPUSCULAR HEMOGLOBIN 32 PG (25-34); MEAN CORPUSCULAR HGB CONC 35 G/DL (32-36); MEAN CORPUSCULAR VOLUME 93 FL (80-99); MEAN PLATELET VOLUME 9.5 FL (7.4-10.4); MONOCYTES # (AUTO) 0.1 X 10^3 (0.0-1.0); MONOCYTES % (AUTO) 2 % (0-12); NEUTROPHILS # (AUTO) 5.8 X 10^3 (1.8-7.8); NEUTROPHILS % (AUTO) 96 % (42-75); PLATELET COUNT 243 10^3/uL (130-400); RED BLOOD COUNT 4.38 10^6/uL (4.35-5.85); RED CELL DISTRIBUTION WIDTH 15.5 % (10.0-14.5)
[2018-07-12 11:23] LABS: BUN/CREATININE RATIO 27; CALCIUM 9.8 MG/DL (8.5-10.1); CARBON DIOXIDE 19 MMOL/L (21-32); CHLORIDE 109 MMOL/L (98-107); CREATININE SERUM 0.88 MG/DL (0.60-1.30); GFR ESTIMATED > 60; GLUCOSE 151 MG/DL (70-105); POTASSIUM 4.1 MMOL/L (3.6-5.0); SODIUM 141 MMOL/L (135-145)
[~2018-07-16] VITALS: Ht 165.1 cm; Wt 89.4 kg
[~2018-07-16 12:43] MED LIST changes: +ACHD5005 PO; +CARBOPLATIN IV SCH; +D5W IV SCH; +FAMOTIDINE 20MG/2ML IV (CANCER CTR) IV SCH; +NS IV 1000 ML (CANCER CTR) IV SCH; +PACLITAXEL 90 MG in NORMAL SALINE (CANCER CENTER) 250 ML IV SCH; +PALONOSETRON HCL 0.25 MG, DEXAMETHASONE INJECTION 10 MG in NS (IVPB) CANCER CENTER 50 ML IV SCH; +PRED10TA22 PO; +diphenhydrAMINE 25 MG TAB (BENADRYL) CANCER CENTER PO SCH
== END 2018-07-19 13:28 | disposition home or self-care (01) ==
LOC: ONC 12:43
PROVIDERS: ATTEND Internal Medicine Hematology & Oncology
DX: Z51.0 Encounter for antineoplastic radiation therapy (principal); C34.31 Malignant neoplasm of lower lobe, right bronchus or lung; J44.9 Chronic obstructive pulmonary disease, unspecified; Z87.891 Personal history of nicotine dependence
CPT/HCPCS: 36415; 36591; 77307; 77334; 77336; 77417; 80048; 80053; 85025; 96375; 96413; 96417; 99213

== ENCOUNTER → 2018-08-11 | Outpatient (CLI) | payer MEDICARE, MEDICAID ==
[~2018-08-11] MED LIST changes: -CARBOPLATIN IV SCH; -D5W IV SCH; -FAMOTIDINE 20MG/2ML IV (CANCER CTR) IV SCH; -NS IV 1000 ML (CANCER CTR) IV SCH; -PACLITAXEL 90 MG in NORMAL SALINE (CANCER CENTER) 250 ML IV SCH; -PALONOSETRON HCL 0.25 MG, DEXAMETHASONE INJECTION 10 MG in NS (IVPB) CANCER CENTER 50 ML IV SCH; -diphenhydrAMINE 25 MG TAB (BENADRYL) CANCER CENTER PO SCH
== END ==
LOC: RT 13:39
PROVIDERS: ATTEND Internal Medicine Hematology & Oncology
DX: J45.909 Unspecified asthma, uncomplicated (principal); J43.9 Emphysema, unspecified; C34.90 Malignant neoplasm of unspecified part of unspecified bronchus or lung

== ENCOUNTER → 2018-09-03 | Outpatient (CLI) | payer MEDICARE, MEDICAID ==
[~2018-09-03] MED LIST changes: +IOHEXOL 350 MG/ML 100 ML (OMNIPAQUE 350) VIAL IV ONE; +NS 250 ML (IVPB) BAG IV ONE; +RECEIVED CONTRAST (Hold Metformin) IV SCH
--- NOTE | 2018-09-03 14:37 | Diagnostic Imaging Report ---
PROCEDURE: CT chest with contrast, CT abdomen and pelvis with and without contrast. TECHNIQUE: Pre and post intravenous contrast axial imaging of the abdomen and pelvis and post contrast axial imaging of the chest were performed. INDICATION: Lung cancer, followup. Comparison is made with prior CT chest from 06/03/2018. CT CHEST: Left chest wall port has tip within the SVC. No axillary lymphadenopathy is detected. No mediastinal or hilar lymphadenopathy is identified. No pericardial or pleural fluid is detected. Parenchymal evaluation again demonstrate severe emphysematous changes throughout both lungs. There is a small area of infiltrate or atelectasis medial left upper lobe. Area of irregular peripheral density in the posterior right lower lobe appears to be smaller on today's study measuring 2.6 x 2.5 cm compared with 2.7 x 2.8 cm. No other parenchymal mass or infiltrate is seen. IMPRESSION: 1. Decrease in size of irregular right lower lobe parenchymal density when compared with exam from 06/03/2018. No thoracic lymphadenopathy or effusion is detected. CT ABDOMEN AND PELVIS: The liver demonstrates diffuse low density consistent with hepatic steatosis. Tiny low-density in the left lobe is stable and suggestive of a cyst. No other liver mass is seen. Gallbladder is surgically absent. No biliary ductal dilatation is identified. The pancreas and spleen are unremarkable. No adrenal mass is identified. Right kidney contains two small cortical low densities, too small to characterize but stable and likely cysts. The aorta is non-aneurysmal. No central, retroperitoneal or mesenteric lymphadenopathy is seen. Small and large bowel loops are normal caliber. There is a small umbilical hernia which contains a portion of a small bowel loop. No obstruction is seen. There is diverticulosis of the sigmoid colon but no evidence of acute diverticulitis. There is no ascites. The bladder is unremarkable apart from minimal gas in the bladder perhaps owing to recent instrumentation. No pelvic lymphadenopathy is seen. The bony structures are non-acute. IMPRESSION: 1. Stable CT of the abdomen and pelvis when compared with exam from 06/03/2018. No evidence of abdominal or pelvic lymphadenopathy or metastatic disease is seen. 2. Hepatic steatosis. 3. Uncomplicated diverticulosis. 4. Small bowel containing umbilical hernia, without evidence of obstruction. Dictated by: Dictated on workstation # [id number]
== END ==
LOC: RAD 12:56
PROVIDERS: ATTEND Internal Medicine Hematology & Oncology
DX: C34.90 Malignant neoplasm of unspecified part of unspecified bronchus or lung (principal); K57.30 Diverticulosis of large intestine without perforation or abscess without bleeding; K76.0 Fatty (change of) liver, not elsewhere classified; K42.9 Umbilical hernia without obstruction or gangrene; Z90.49 Acquired absence of other specified parts of digestive tract
CPT/HCPCS: 71260; 74178

== ENCOUNTER → 2018-09-16 | Outpatient (CLI) | payer MEDICARE, MEDICAID ==
[~2018-09-16] MED LIST changes: -IOHEXOL 350 MG/ML 100 ML (OMNIPAQUE 350) VIAL IV ONE; -NS 250 ML (IVPB) BAG IV ONE; -RECEIVED CONTRAST (Hold Metformin) IV SCH
--- NOTE | 2018-09-16 18:21 | Diagnostic Imaging Report ---
INDICATION: Rib pain. History of cancer of the lung. EXAMINATION: Bilateral ribs. FINDINGS: There is a mass again noted in the right lower lobe. Bilateral ribs show no evidence of acute fracture. There is an old healed rib fracture noted along the right seventh rib. Port-A-Cath is present on the left. No evidence of pneumothorax or pleural effusion. IMPRESSION: No evidence of acute rib fractures. Old rib deformity of right seventh rib. Right lower lung mass noted. Dictated by: Dictated on workstation # [id number]
== END ==
LOC: RAD 16:22
PROVIDERS: ATTEND Internal Medicine Hematology & Oncology
DX: M95.4 Acquired deformity of chest and rib (principal); R92.8 Other abnormal and inconclusive findings on diagnostic imaging of breast; Z85.118 Personal history of other malignant neoplasm of bronchus and lung
CPT/HCPCS: 71110

== ENCOUNTER 2018-10-07 10:24 | Outpatient (RCR) | payer MEDICARE, MEDICAID ==
[2018-08-11 10:14] LABS: EOSINOPHILS % (AUTO) 0 % (0-10); HEMATOCRIT 38 % (35-52); LYMPHOCYTES % (AUTO) 4 % (12-44); MEAN CORPUSCULAR HEMOGLOBIN 33 PG (25-34); MEAN CORPUSCULAR HGB CONC 35 G/DL (32-36); MEAN CORPUSCULAR VOLUME 96 FL (80-99); MEAN PLATELET VOLUME 8.9 FL (7.4-10.4); MONOCYTES % (AUTO) 6 % (0-12); NEUTROPHILS % (AUTO) 90 % (42-75); PLATELET COUNT 236 10^3/uL (130-400); RED BLOOD COUNT 3.92 10^6/uL (4.35-5.85); RED CELL DISTRIBUTION WIDTH 17.6 % (10.0-14.5); WHITE BLOOD COUNT 7.1 10^3/uL (4.3-11.0)
[2018-08-11 10:15] LABS: BASOPHILS % (AUTO) 0 % (0-10); LYMPHOCYTES # (AUTO) 0.3 X 10^3 (1.0-4.0); MONOCYTES # (AUTO) 0.4 X 10^3 (0.0-1.0); NEUTROPHILS # (AUTO) 6.4 X 10^3 (1.8-7.8)
[2018-08-11 10:32] LABS: ALANINE AMINOTRANSFERASE 58 U/L (0-55); ALBUMIN 4.3 GM/DL (3.2-4.5); ALKALINE PHOSPHATASE 79 U/L (40-136); BILIRUBIN,TOTAL 0.5 MG/DL (0.1-1.0); BUN/CREATININE RATIO 21; CALCIUM 9.8 MG/DL (8.5-10.1); CARBON DIOXIDE 22 MMOL/L (21-32); CHLORIDE 107 MMOL/L (98-107); CREATININE SERUM 0.84 MG/DL (0.60-1.30); GFR ESTIMATED > 60; GLUCOSE 136 MG/DL (70-105); POTASSIUM 3.7 MMOL/L (3.6-5.0); SODIUM 142 MMOL/L (135-145); TOTAL PROTEIN 6.5 GM/DL (6.4-8.2)
[2018-09-16 16:31] LABS: BASOPHILS % (AUTO) 0 % (0-10); EOSINOPHILS # (AUTO) 0.1 10^3/uL (0.0-0.3); EOSINOPHILS % (AUTO) 1 % (0-10); HEMATOCRIT 38 % (35-52); HEMOGLOBIN 12.7 G/DL (11.5-16.0); LYMPHOCYTES # (AUTO) 0.2 X 10^3 (1.0-4.0); LYMPHOCYTES % (AUTO) 2 % (12-44); MEAN CORPUSCULAR HEMOGLOBIN 33 PG (25-34); MEAN CORPUSCULAR HGB CONC 34 G/DL (32-36); MEAN CORPUSCULAR VOLUME 98 FL (80-99); MEAN PLATELET VOLUME 9.6 FL (7.4-10.4); MONOCYTES # (AUTO) 0.6 X 10^3 (0.0-1.0); MONOCYTES % (AUTO) 5 % (0-12); NEUTROPHILS # (AUTO) 10.1 X 10^3 (1.8-7.8); NEUTROPHILS % (AUTO) 93 % (42-75); PLATELET COUNT 261 10^3/uL (130-400); RED BLOOD COUNT 3.85 10^6/uL (4.35-5.85); RED CELL DISTRIBUTION WIDTH 14.9 % (10.0-14.5); WHITE BLOOD COUNT 10.9 10^3/uL (4.3-11.0)
[2018-09-16 16:49] LABS: ALANINE AMINOTRANSFERASE 52 U/L (0-55); ALBUMIN 3.9 GM/DL (3.2-4.5); ALKALINE PHOSPHATASE 102 U/L (40-136); BILIRUBIN,TOTAL 0.9 MG/DL (0.1-1.0); BUN/CREATININE RATIO 21; CALCIUM 9.7 MG/DL (8.5-10.1); CARBON DIOXIDE 21 MMOL/L (21-32); CHLORIDE 108 MMOL/L (98-107); CREATININE SERUM 0.82 MG/DL (0.60-1.30); GFR ESTIMATED > 60; GLUCOSE 132 MG/DL (70-105); POTASSIUM 4.3 MMOL/L (3.6-5.0); SODIUM 143 MMOL/L (135-145); TOTAL PROTEIN 6.5 GM/DL (6.4-8.2)
[~2018-10-07] VITALS: Ht 165.1 cm; Wt 89.4 kg
[~2018-10-07 10:24] MED LIST changes: +DURVALUMAB IV SCH; +NS IV 500 ML (CANCER CENTER) IV SCH; +NS IV SCH
[2018-10-07 10:44] LABS: BASOPHILS % (AUTO) 0 % (0-10); EOSINOPHILS # (AUTO) 0.1 10^3/uL (0.0-0.3); EOSINOPHILS % (AUTO) 0 % (0-10); HEMATOCRIT 33 % (35-52); HEMOGLOBIN 10.7 G/DL (11.5-16.0); LYMPHOCYTES # (AUTO) 0.4 X 10^3 (1.0-4.0); LYMPHOCYTES % (AUTO) 4 % (12-44); MEAN CORPUSCULAR HEMOGLOBIN 32 PG (25-34); MEAN CORPUSCULAR HGB CONC 32 G/DL (32-36); MEAN CORPUSCULAR VOLUME 100 FL (80-99); MEAN PLATELET VOLUME 9.6 FL (7.4-10.4); MONOCYTES # (AUTO) 0.4 X 10^3 (0.0-1.0); MONOCYTES % (AUTO) 3 % (0-12); NEUTROPHILS # (AUTO) 10.8 X 10^3 (1.8-7.8); NEUTROPHILS % (AUTO) 93 % (42-75); PLATELET COUNT 278 10^3/uL (130-400); RED BLOOD COUNT 3.31 10^6/uL (4.35-5.85); RED CELL DISTRIBUTION WIDTH 14.2 % (10.0-14.5); WHITE BLOOD COUNT 11.6 10^3/uL (4.3-11.0)
[2018-10-07 11:06] LABS: ALANINE AMINOTRANSFERASE 43 U/L (0-55); ALBUMIN 3.6 GM/DL (3.2-4.5); ALKALINE PHOSPHATASE 75 U/L (40-136); BILIRUBIN,TOTAL 0.6 MG/DL (0.1-1.0); BUN/CREATININE RATIO 21; CALCIUM 9.4 MG/DL (8.5-10.1); CARBON DIOXIDE 26 MMOL/L (21-32); CHLORIDE 104 MMOL/L (98-107); CREATININE SERUM 0.86 MG/DL (0.60-1.30); GFR ESTIMATED > 60; GLUCOSE 120 MG/DL (70-105); POTASSIUM 4.5 MMOL/L (3.6-5.0); SODIUM 141 MMOL/L (135-145)
== END 2018-10-17 | disposition home or self-care (01) ==
LOC: ONC 10:24
PROVIDERS: ATTEND Internal Medicine Hematology & Oncology
DX: Z51.11 Encounter for antineoplastic chemotherapy (principal); C34.31 Malignant neoplasm of lower lobe, right bronchus or lung; J44.9 Chronic obstructive pulmonary disease, unspecified; Z87.891 Personal history of nicotine dependence; M95.4 Acquired deformity of chest and rib; R92.8 Other abnormal and inconclusive findings on diagnostic imaging of breast; Z85.118 Personal history of other malignant neoplasm of bronchus and lung; C34.90 Malignant neoplasm of unspecified part of unspecified bronchus or lung; K57.30 Diverticulosis of large intestine without perforation or abscess without bleeding; K76.0 Fatty (change of) liver, not elsewhere classified; K42.9 Umbilical hernia without obstruction or gangrene; Z90.49 Acquired absence of other specified parts of digestive tract
CPT/HCPCS: 36415; 36591; 71110; 71260; 74178; 80053; 84443; 85025; 96413; 99213

== ENCOUNTER → 2018-11-09 | Outpatient (CLI) | payer MEDICARE, MEDICAID ==
[~2018-11-09] MED LIST changes: -DURVALUMAB IV SCH; -NS IV 500 ML (CANCER CENTER) IV SCH; -NS IV SCH
--- NOTE | 2018-11-09 17:48 | Diagnostic Imaging Report ---
INDICATION: Mass on the medial aspect of the fourth finger. TIME OF EXAM: 3:25 PM FINDINGS: The metacarpals are intact. Phalanges are intact. No acute bony abnormality is seen. Soft tissues are unremarkable. IMPRESSION: No acute abnormalities detected. Dictated by: Dictated on workstation # [id number]
== END ==
LOC: RAD 14:53
PROVIDERS: ATTEND Surgery
DX: R22.32 Localized swelling, mass and lump, left upper limb (principal)
CPT/HCPCS: 73130

== ENCOUNTER 2018-11-15 07:11 | Day surgery (SDC) | payer MEDICARE, MEDICAID ==
[~2018-11-15] VITALS: Ht 165.1 cm; Wt 90.7 kg
[~2018-11-15 07:11] MED LIST changes: +CETI10TA17 PO; +CHOL2000 PO; +DILT240T10 PO; +LUTE10TA PO; +METO-333 PO; +MULT-351 PO; +POTA99TA21 PO
--- OUTSIDE RECORDS SUMMARY | 2018-11-15 07:15 | XMS REPORT ---
Author Author JAMES SIFUENTES [facility] DIANE Address [address] [place] [address] Care Team Providers Care Health Services Administrator Name Role Phone JAMES SIFUENTES Unavailable PROBLEMS Type Condition ICD9-CM Code [id number] Code Onset Dates Condition Status SNOMED Code Problem Metabolic syndrome E88.81 Active 501701146 Problem Malignant neoplasm of right lung, unspecified part of lung C34.91 Active 01686955 Problem Obesity (BMI 30-39.9) E66.9 Active 460281676 Problem Pulmonary emphysema, unspecified emphysema type J43.9 Active 27238862 Problem COPD, severe J44.9 Active 393297753 Problem Perennial allergic rhinitis, unspecified allergic rhinitis trigger J30.89 Active 197312065 ALLERGIES No Information ENCOUNTERS Encounter Location Date Diagnosis [facility] [employer] [address] [id number] [place] [id number] Oct, [facility] [address] [id number] [place] [id number] Sep, [facility] [address] [id number] [place] [id number] Sep, Metabolic syndrome E88.81 [facility] [address] [id number] [place] [id number] Aug, Dental examination Z01.20 and Caries K02.9 [facility] [place] [address] [facility] [address] [id number] [place] [id number] 10 Jul, 2018 Perennial allergic rhinitis, unspecified allergic rhinitis trigger J30.89 [facility] DIANE [employer] [facility] [address] [id number] [place] [id number] 17 Jun, 2018 Dental examination Z01.20 [facility] [address] [id number] [place] [id number] May, Dental examination Z01.20 [facility] [address] [id number] [place] [id number] Mar, Dental examination Z01.[address] [facility] [address] [id number] [place] [id number] Mar, Dental examination Z01.[address] [facility] [address] [id number] [place] [id number] February, Need for hepatitis C screening test Z11.59 [facility] [address] [id number] [place] [id number] Jan, Pulmonary emphysema, unspecified emphysema type J43.9 ; Obesity ( BMI 30-39.9) E66.9 ; Thyroid disorder screen Z13.29 ; Malignant neoplasm of right lung, unspecified part of lung C34.91 and Leg cramp R25.2 [facility] [address] [id number] [place] [id number] Dec, Dental examination Z01.20 [facility] [address] [id number] [place] [id number] Oct, COPD, severe J44.9 [facility] [address] [id number] [place], [place] [id number] Aug, Dental examination Z01.20 [facility] [address] [id number] [place] [id number] Aug, Dental examination Z01.[address] [facility] [address] [id number] [place] [id number] Jul, Dental examination Z01.[address] [facility] [address] [id number] [place] [id number] Jul, Dental examination Z01.[address] [facility] [address] [id number] [place] [id number] Jul, Lower extremity edema R60.0 [facility] [address] [id number] [place] [id number] 30 Jun, 2017 Cellulitis of left leg L03.116 [facility] [address] [id number] [place] [id number] 26 Jun, [address] [facility] [address] [id number] [place] [id number] 18 Jun, 2017 Encounter for dental examination and cleaning without abnormal findings Z01.20 [facility] [address] [id number] [place] [id number] 16 Jun, 2017 Cellulitis of left lower extremity L03.116 [facility] [address] [id number] [place] [id number] 15 Jun, 2017 [facility] [address] [id number] [place] [id number] Jun, [facility] [address] [id number] [place] [id number] May, [facility] [address] [id number] [place] [id number] May, Dental examination Z01.20 [facility] [address] [id number] [place] [id number] May, [facility] [address] [id number] [place] [id number] May, Dental examination Z01.20 [facility] [address] [id number] [place] [id number] Apr, COPD, severe J44.9 ; Shortness of breath R06.02 and Perennial allergic rhinitis, unspecified allergic rhinitis trigger J30.89 [facility] [address] [id number] [place] [id number] Oct, Thyroid disorder screen Z13.29 ; Screening cholesterol level Z13.220 ; Pulmonary emphysema, unspecified emphysema type J43.9 and Obesity ( BMI 30-39.9) E66.9 [facility] [address] [id number] [place] [id number] Oct, [facility] [address] [address] [facility] [address] [id number] [place] [id number] Oct, Pulmonary emphysema, unspecified emphysema type J43.9 ; Perennial allergic rhinitis, unspecified allergic rhinitis trigger J30.89 ; Screening cholesterol level Z13.220 ; Thyroid disorder screen Z13.29 and Obesity (BMI 30- 39.9) E66.9 IMMUNIZATIONS No Known Immunizations SOCIAL HISTORY Never Assessed REASON FOR VISIT PLAN OF CARE VITAL SIGNS MEDICATIONS Unknown [...] treatment only. Stage I Dr. Vinnie Abdalla [facility] Surgical History Complete Hysterectomy 09/2013 Surgical History Gallbladder 04/2011 Surgical History Prolaspe repair enterolysis, uterolysis, sacral colpopexy, excision of sigmoid mass, excision of cul-de-sac peritoneum, abdominal revision of vaginal mesh, cystolcele repair, and cystoscopy with hydrodistention 09/2015 Surgical History Midurethral Sling TVT-Exact and Cystoscopy 05/2013 Hospitalization History No Hospitalization history information
--- OUTSIDE RECORDS SUMMARY | 2018-11-15 07:16 | XMS REPORT ---
Author Author MITESH GRIFFITHS [facility] Address [address] [place] [address] Care Team Providers Care Story Teller Name Role Phone NANCI GRIFFITHSDY Unavailable PROBLEMS Type Condition ICD9-CM Code WPF68-PV Code Onset Dates Condition Status SNOMED Code Problem Malignant neoplasm of right lung, unspecified part of lung C34.91 Active 57414034 Problem COPD, severe J44.9 Active 929567429 Problem Pulmonary emphysema, unspecified emphysema type J43.9 Active 05467148 Problem Perennial allergic rhinitis, unspecified allergic rhinitis trigger J30.89 Active 478764617 Problem Obesity (BMI 30-39.9) E66.9 Active 968090575 ALLERGIES No Information ENCOUNTERS Encounter Location Date Diagnosis [facility] [employer] [id number], [place] [id number] Sep, [email or web address] [address] [id number], [place] [id number] Aug, [facility]ENTERShareWithUDEBRA [place] [address] [facility] [address] [id number], [place] [id number] Jun, Dental examination Z01.20 [facility] [id number], [place] [id number] May, Dental examination Z01.20 [facility]ShareWithUDEBRA [facility] [address] [facility] [address] [id number], [place] [id number] Mar, Dental examination Z01.20 [facility]ShareWithUDEBRA [facility] [address] [facility] [address] [id number], [place] [id number] Mar, Dental examination Z01.20 [facility] [employer] [id number], [place] [id number] February, Need for hepatitis C screening test Z11.59 [facility] [address] [id number], [place] [id number] Jan, Pulmonary emphysema, unspecified emphysema type J43.9 ; Obesity ( BMI 30-39.9) E66.9 ; Thyroid disorder screen Z13.29 ; Malignant neoplasm of right lung, unspecified part of lung C34.91 and Leg cramp R25.2 [facility] [address] [id number], [place] [id number] Dec, Dental examination Z01.[address] [facility] [address] [id number], [place] [id number] Oct, COPD, severe J44.9 [facility] [address] [id number], [place] [id number] Aug, Dental examination Z01.20 [facility] [address] [id number], [place] [id number] Aug, Dental examination Z01.20 [facility] [address] [id number], [place] [id number] Jul, Dental examination Z01.20 [facility] [address] [id number], [place] [id number] Jul, Dental examination Z01.20 [facility] [address] [id number], [place] [id number] Jul, Lower extremity edema R60.0 [facility] [address] [id number], [place] [id number] 30 Jun, 2017 Cellulitis of left leg L03.116 [facility] [address] [id number], [place] [id number] Jun, [facility] [address] [id number], [place] [id number] 18 Jun, 2017 Encounter for dental examination and cleaning without abnormal findings Z01.[address] [facility] [address] [id number], [place] [id number] 16 Jun, 2017 Cellulitis of left lower extremity L03.[address] [facility] [address] [id number], [place] [id number] Jun, [facility] [address] [id number], [place] [id number] Jun, [facility] Duarte [facility] [address] [id number], [place] [id number] May, [facility] Duarte [facility] [address] [id number], [place] [id number] May, Dental examination Z01.20 [facility] [address] [id number], [place] [id number] May, [facility] [address] [id number], [place] [id number] May, Dental examination Z01.20 [facility] DIANE [address] [place] [address] [id number], [place] [id number] Apr, COPD, severe J44.9 ; Shortness of breath R06.02 and Perennial allergic rhinitis, unspecified allergic rhinitis trigger J30.89 [facility] DIANE [address] [place] [address] AVE [id number], [place] [id number] Oct, Thyroid disorder screen Z13.29 ; Screening cholesterol level Z13.220 ; Pulmonary emphysema, unspecified emphysema type J43.9 and Obesity ( BMI 30-39.9) E66.9 [facility] Islas[address] [place] [address] AV [id number], [place] [id number] Oct, [facility] DIANE [address] [place] [address] AVE [id number], [place] [id number] Oct, Pulmonary emphysema, unspecified emphysema type J43.9 ; Perennial allergic rhinitis, unspecified allergic rhinitis trigger J30.89 ; Screening cholesterol level Z13.220 ; Thyroid disorder screen Z13.29 and Obesity (BMI 30- 39.9) E66.9 IMMUNIZATIONS No Known Immunizations SOCIAL HISTORY Never Assessed REASON FOR VISIT dhara/[facility] PLAN OF CARE VITAL SIGNS MEDICATIONS Unknown Medications RESULTS No Results PROCEDURES Procedure Date Ordered Result Body Site Billing Notes on claim Jul 05, 2018 INSTRUCTIONS MEDICATIONS ADMINISTERED No Known Medications [...] treatment only. Stage I Dr. Vinnie Abdalla [facility] Surgical History Complete Hysterectomy 09/2013 Surgical History Gallbladder 04/2011 Surgical History Prolaspe repair enterolysis, uterolysis, sacral colpopexy, excision of sigmoid mass, excision of cul-de-sac peritoneum, abdominal revision of vaginal mesh, cystolcele repair, and cystoscopy with hydrodistention 09/2015 Surgical History Midurethral Sling TVT-Exact and Cystoscopy 05/2013 Hospitalization History No Hospitalization history information
--- OUTSIDE RECORDS SUMMARY | 2018-11-15 07:16 | XMS REPORT ---
Author Author WILLOW FREY [facility] Address [address] [place] [address] Care Team Providers Care Voltmeter Operator Name Role Phone WILLOW FREY Unavailable PROBLEMS Type Condition ICD9-CM Code ZMZ90-FZ Code Onset Dates Condition Status SNOMED Code Problem Malignant neoplasm of right lung, unspecified part of lung C34.91 Active 08664410 Problem COPD, severe J44.9 Active 070271210 Problem Pulmonary emphysema, unspecified emphysema type J43.9 Active 53638067 Problem Perennial allergic rhinitis, unspecified allergic rhinitis trigger J30.89 Active 855491450 Problem Obesity (BMI 30-39.9) E66.9 Active 483706701 ALLERGIES Substance Reaction Event Type Date Status [place] (Diagnostic) hives Drug Allergy May, Active Penicillin G Sodium pt voices severe reaction runs in family so she doesn't like to have it given to her Drug Allergy May, Active [place] Flavor hives Drug Allergy May, Active [place], Mang[place] hives Non Drug Allergy May, Active ENCOUNTERS Encounter Location Date Diagnosis [facility] [place] [id number] [facility] [id number] [id number] Jun, [facility] [address] [id number], [place] [id number] May, Dental examination Z01.[address] [id number], [place] [id number] Mar, Dental examination Z01.20 [facility] [address] [id number], [place] [id number] Mar, Dental examination Z01.[address] [id number], [place] [id number] February, Need for hepatitis C screening test Z11.59 [facility] [address] [id number], [place] [id number] Jan, Pulmonary emphysema, unspecified emphysema type J43.9 ; Obesity ( BMI 30-39.9) E66.9 ; Thyroid disorder screen Z13.29 ; Malignant neoplasm of right lung, unspecified part of lung C34.91 and Leg cramp R25.2 [facility] [address] [id number], [place] [id number] Dec, Dental examination Z01.20 [facility] [address] [id number], [place] [id number] Oct, COPD, severe J44.9 [facility] [address] [id number], [place] [id number] Aug, Dental examination Z01.20 [facility] [address] [id number], [place] [id number] Aug, Dental examination Z01.20 [facility] [address] [id number], [place] [id number] Jul, Dental examination Z01.20 [facility] [address] [id number], [place] [id number] Jul, Dental examination Z01.20 [facility] [address] [id number], [place] [id number] Jul, Lower extremity edema R60.0 [facility] [address] [id number], [place] [id number] 30 Jun, 2017 Cellulitis of left leg L03.116 [facility] [address] [id number], [place] [id number] Jun, [facility] [id number] [place] [id number] 18 Jun, 2017 Encounter for dental examination and cleaning without abnormal findings Z01.20 [facility] [address] [id number], [place] [id number] Jun, Cellulitis of left lower extremity L03.116 [facility] [address] [id number], [place] [id number] Jun, [facility] [address] [id number], [place] [id number] Jun, [facility] AV [id number], [place] [id number] May, [facility] [address] [id number], [place] [id number] May, Dental examination Z01.20 [facility] [address] [place] [address] AVE [id number], [place] [id number] May, [facility] [address] [id number], [place] [id number] May, Dental examination Z01.20 [facility] [address] [place] [address] AV [id number], [place] [id number] Apr, COPD, severe J44.9 ; Shortness of breath R06.02 and Perennial allergic rhinitis, unspecified allergic rhinitis trigger J30.89 [facility] [address] [place] [address] AVE [id number], [place] [id number] Oct, Thyroid disorder screen Z13.29 ; Screening cholesterol level Z13.220 ; Pulmonary emphysema, unspecified emphysema type J43.9 and Obesity ( BMI 30-39.9) E66.9 [facility] Duarte [facility] [address] [id number], [place] [id number] Oct, [facility] [address] [facility] [address] [facility] [address] [id number], [place] [id number] Oct, Pulmonary emphysema, unspecified emphysema type J43.9 ; Perennial allergic rhinitis, unspecified allergic rhinitis trigger J30.89 ; Screening cholesterol level Z13.220 ; Thyroid disorder screen Z13.29 and Obesity (BMI 30- 39.9) E66.9 IMMUNIZATIONS No Known Immunizations SOCIAL HISTORY Never Assessed REASON FOR VISIT [facility] PLAN OF CARE Activity Details Follow Up 2 Weeks Reason:15 min. re-eval VITAL SIGNS Height 65.4 in 2018-05-25 Blood pressure systolic 113 mmHg 2018-05-25 Blood pressure diastolic 65 mmHg 2018-05-25 MEDICATIONS Medication Instructions Dosage Frequency Start Date End Date Duration Status CompAir Nebulizer nebulizer needs machine and tubing Oct, Active Potassium 99 MG Orally Once a day 1 tablet 24h Active Montelukast Sodium 10 MG TAKE 1 TABLET BY MOUTH EVERY EVENING 90 Active Aleve 220 MG Orally every 12 hrs 1 tablet as needed 12h Active Multivitamin Adult - Active Dulera 200-5 MCG/ACT Inhalation Twice a day 2 puffs 12h Active Fluticasone Propionate 50 MCG/ACT USE TWO SPRAY NASALLY DAILY. 90 Active Lutein 20 MG Orally Once a day 1 capsule with a meal 24h Active Biotin 5000 5 MG Orally Once a day 1 capsule 24h Active Vitamin D-3 1000 UNIT Orally Once a day 2 capsules 24h Active Zyrtec Allergy 10 mg 1 tablet Once a day Orally Active Ventolin HFA 108 (90 Base) MCG/ACT Inhalation every 6 hrs 2 puffs as needed 6h Active Albuterol Sulfate (2.5 MG/3ML) 0.083% Inhalation Three times a day as needed for cough/wheeze 3 ml Oct, Active Collagen Ultra - Active Spiriva HandiHaler 18 MCG Inhalation Once a day 1 capsule 24h Active Singulair 10 mg Orally Once a day 1 tablet in the evening 24h Active RESULTS No Results PROCEDURES Procedure Date Ordered Result Body Site LTD ORAL EVALUATION - PROBLEM FOCUS May 25, 2018 INTRAORL-PERIAPICAL 1 FILM [id number] May 25, 2018 INSTRUCTIONS MEDICATIONS ADMINISTERED No Known [...] treatment only. Stage I Dr. Vinnie Abdalla [facility] Emergency Department Surgical [...]
[2018-11-15 07:30] VITALS: BP 164/98
[2018-11-15] MEDS ORDERED: LACTATED RINGERS 1,000 ML IV PRN (07:47)
[2018-11-15] MEDS ORDERED: RT-ALBUTEROL SULF 2.5 MG/3 ML PRE-MIX VIAL INH ONE (08:00)
--- NOTE | 2018-11-15 08:00 | NUR ---
LEFT UPPER CHEST POWER PORT ACCESSED ON FIRST ATTEMPT PER PROTOCOL. UNABLE TO FLUSH OR DRAW BLOOD FROM PORT. PT STATES PORT HAS BEEN MAINTAINED BY [facility] AND THEY WERE UNABLE TO OBTAIN BLOOD RETURN AND FLUSH WAS SLUGGISH ON HER LAST VISIT SEVERAL WEEKS AGO. STATES SHE WAS TOLD SHE WOULD HAVE TO HAVE [facility] TO IMPROVE PORT FUNCTION WITH HER NEXT VISIT THERE. PORT ACCESS REMOVED. WILL START PERIPHERAL IV FOR TODAY'S PROCEDURE.
[2018-11-15] MEDS ORDERED: LIDOCAINE/EPI 1%-1:100,000 (XYLOCAINE) 20ML ONE (08:17)
[2018-11-15] MEDS ORDERED: proPOfol 200 MG/20 ML (DIPRIVAN) VIAL IV ONE (08:37)
[2018-11-15] MEDS ORDERED: MIDAZOLAM 2 MG/2 ML (VERSED) VIAL ONE (08:37)
--- NOTE | 2018-11-15 09:06 | Progress Note-Pre Operative ---
Pre-Operative Progress Note H&P Reviewed The H&P was reviewed, patient examined and no changes noted. Time Seen by Provider: 09:01 Date H&P Reviewed: Nov 15, 2018 Time H&P Reviewed: 09:02 Pre-Operative Diagnosis: Left 4th digit mass SNEHA BOLIVAR DO Nov 15, 2018 09:06
[2018-11-15] MEDS ORDERED: BUPIVACAINE 0.5% 30 ML (SENSORCAINE) VIAL ONE (09:19)
[2018-11-15] MEDS: CLINDAMYCIN 600 MG/50 ML IVPB 50 ML IV ONE (09:27)
[2018-11-15] MEDS ORDERED: CLINDAMYCIN 600 MG/4ML (CLEOCIN) VIAL ONE (09:43)
[2018-11-15] MEDS ORDERED: PROPOFOL INJECTION 50 ML IV ONE (09:43)
--- NOTE | 2018-11-15 09:47 | Progress Note-Post Operative ---
Post-Operative Progess Note Surgeon (s)/Tower Hand (s) Surgeon SNEHA BOLIVAR DO Tower Hand: none Pre-Operative Diagnosis Left 4th digit mass Post-Operative Diagnosis same pending pathology Procedure & Operative Findings Date of Procedure 11/15/18 Procedure Performed/Findings Excision of Left 4th finger mass; 1.1 cm incision Anesthesia Type MAC with local bupivicaine Estimated Blood Loss Estimated blood loss (mL): scant Specimens/Packing Specimens Removed Left 4th digit mass SNEHA BOLIVAR DO Nov 15, 2018 09:47
--- NOTE | 2018-11-15 09:50 | Discharge Inst-Surgical ---
Discharge Inst-Surgical Depart Medication/Instructions New, Converted or Re-Newed RX: Other (No Rx needed) Patient Instructions Follow up Appt: Make appointment for 1 week. Instructions: May shower in 24 hours, no tub bath or soaking. Use incentive spirometer at home as directed. No Smoking Skin/Wound Care: May remove bandages. You need to leave the suture in place and come in to have it removed. Symptoms to Report: Appetite Changes, Extremity Discoloration, Numbness/Tingling, Swelling Increased , Bleeding Excessive, Eyesight Changes, Pain Increased, Urine Color Change, Constipation(Persistent), Fever over 101 degree F, Pain/Pressure in chest, Urinating Difficulty, Cough Up/Vomit Blood, Heart Beat Irreg/Pounding, Pain/ Pressure in jaw, Cramps in feet or legs, Lightheadedness, Pain/Pressure in shoulder, Diarrhea(Persistent), Memory Changes Suddenly, Questions/Concerns, Weight gain consecutive days, Dizziness/Fainting, Nausea/Vomiting, Shortness of Breath, Weight gain over 2 pounds If questions or concerns contact your physician Or seek help at emergency department. Activity Activity Instructions: Avoid Stress to Incision Driving Instructions: You May Drive Diet Discharge Diet: No Restrictions Diet After 24 Hours: Clear Liquid if Nauseous If Any Problems/Questions/Issu: Contact Your Physician Skin/Wound Care Infection Signs and Symptoms: Increased Redness, Foul Odor of Wound, Increased Drainage, Skin Itchy or Has a Rash, Increased Swelling, Temperature Above 101 F Wound Care Comment: Hold pressure for any bleeding. Bathing Instructions: SNEHA Mcguire DO Nov 15, 2018 09:50
[2018-11-15 10:20] VITALS: BP 124/83
--- NOTE | 2018-11-15 10:26 | Anesthesia-General Post-Op ---
MAC Patient Condition Mental Status/LOC: Same as Preop Cardiovascular: Satisfactory Nausea/Vomiting: Absent Respiratory: Satisfactory Pain: Controlled Complications: Absent Post Op Complications Complications None Follow Up Care/Instructions Patient Instructions None needed. Anesthesiology Discharge Order Discharge Order Patient is doing well, no complaints, stable vital signs, no apparent adverse anesthesia problems. No complications reported per nursing. UDAY PRICE CRNA Nov 15, 2018 10:26
[2018-11-15 11:00] VITALS: BP 126/78
[2018-11-15 11:20] VITALS: BP 126/78
--- NOTE | 2018-11-15 11:20 | NUR ---
HAS RESTED QUIETLY WITH NO COMPLAINTS VOICED THROUGHOUT RECOVERY. ALERT, ON O2 PER HOME USE. RESPIRATIONS EVEN, UNLABORED. BANDAID REMAINS D/I TO LEFT DISTAL RING FINGER SURGICAL SITE. ABLE TO MOVE FINGER, REPORTS FINGER FEELS NUMB, BUT ABLE TO FEEL PRESSURE TOUCH, CAPILLARY REFILL <3 SECONDS, HAND AND FINGERS WARM AND PINK. READY FOR DISMISSAL.
--- NOTE | 2018-11-16 00:57 | OPERATIVE REPORT ---
DATE OF SERVICE: 11/15/2018 PREOPERATIVE DIAGNOSES: Left fourth finger mass. POSTOPERATIVE DIAGNOSIS: Left fourth finger mass, pending pathology. PROCEDURE: Excision of left fourth finger mass, incision measuring 1.1 cm. SURGEON: Manjit Waddell DO. TECHNICAL SOLUTIONS DIRECTOR: None. ANESTHESIA: IV sedation by TITLE ONE KINDERGARTEN TEACHER. SPECIMEN: Left fourth finger mass. Measured appx 3mm in diameter. BLOOD LOSS: Scant. FLUIDS: Per anesthesia. POSTOPERATIVE CONDITION: Stable. INDICATION FOR PROCEDURE: The patient is a 68-year-old female who has a history of lung cancer and has a new lesion on her left fourth finger that is causing pain and getting bigger and she wanted to get this removed because she was worried it could be cancer. FINDINGS: The patient had a left fourth finger mass and removed and sent to pathology. PROCEDURE NOTE: After informed consent was obtained, the patient was brought to the operating room. A digital block was performed using 9 mL of 0.5% bupivacaine injected half on either side to do a digital block. She had been sterilely prepped and draped in normal fashion prior to this. I then made a small incision above the mass at the distal end of the fourth digit and incision measured about 1.1 cm, carried down through the skin into the subcutaneous tissue. I then gently with a mosquito hemostat started dissecting, could feel a little lump, dissected around, saw something purplish that looked almost like a cyst, able to carefully start dissecting this out with a hemostat, a blunt dissection and then used a little bit of the Bovie electrocautery needle point tip to remove this en bloc and passed this off the table. Hemostasis was obtained using Bovie electrocautery. I elected to close the incision with a 5-0 Monocryl 2 simple stitches. Area was cleaned and dried and a Band-Aid was placed. The patient was then transferred to recovery room in stable condition. Sponge, instrument and needle counts were correct at the end of the case. Job ID: [id number] DocumentID: [id number] Dictated Date: 11/15/2018 13:52:38 Nursery Attendant Date: 11/16/2018 00:56:50 Dictated By: MANJIT WADDELL DO [facility]
== END 2018-11-15 11:21 | disposition home or self-care (01) ==
LOC: SDC 07:11
PROVIDERS: ATTEND Surgery
DX: I86.8 Varicose veins of other specified sites (principal); Z11.2 Encounter for screening for other bacterial diseases; J43.9 Emphysema, unspecified; C34.90 Malignant neoplasm of unspecified part of unspecified bronchus or lung; Z87.891 Personal history of nicotine dependence; I10 Essential (primary) hypertension; Z99.81 Dependence on supplemental oxygen; Z79.899 Other long term (current) drug therapy
CPT/HCPCS: 87081; 94640

== ENCOUNTER 2019-01-13 13:05 | Outpatient (RCR) | payer MEDICARE, MEDICAID ==
[2018-10-21 10:30] LABS: BASOPHILS % (AUTO) 0 % (0-10); EOSINOPHILS % (AUTO) 0 % (0-10); HEMATOCRIT 35 % (35-52); HEMOGLOBIN 10.7 G/DL (11.5-16.0); LYMPHOCYTES # (AUTO) 0.2 X 10^3 (1.0-4.0); LYMPHOCYTES % (AUTO) 1 % (12-44); MEAN CORPUSCULAR HEMOGLOBIN 31 PG (25-34); MEAN CORPUSCULAR HGB CONC 31 G/DL (32-36); MEAN CORPUSCULAR VOLUME 98 FL (80-99); MEAN PLATELET VOLUME 9.7 FL (7.4-10.4); MONOCYTES # (AUTO) 0.4 X 10^3 (0.0-1.0); MONOCYTES % (AUTO) 4 % (0-12); NEUTROPHILS # (AUTO) 10.1 X 10^3 (1.8-7.8); NEUTROPHILS % (AUTO) 94 % (42-75); PLATELET COUNT 192 10^3/uL (130-400); RED CELL DISTRIBUTION WIDTH 14.3 % (10.0-14.5); WHITE BLOOD COUNT 10.7 10^3/uL (4.3-11.0)
[2018-10-21 10:52] LABS: CARBON DIOXIDE 24 MMOL/L (21-32); CHLORIDE 107 MMOL/L (98-107); CREATININE SERUM 0.78 MG/DL (0.60-1.30); POTASSIUM 3.9 MMOL/L (3.6-5.0); SODIUM 142 MMOL/L (135-145)
[2018-10-21 10:53] LABS: ALANINE AMINOTRANSFERASE 53 U/L (0-55); ALBUMIN 3.6 GM/DL (3.2-4.5); ALKALINE PHOSPHATASE 93 U/L (40-136); BILIRUBIN,TOTAL 0.3 MG/DL (0.1-1.0); BUN/CREATININE RATIO 17; CALCIUM 9.2 MG/DL (8.5-10.1); GFR ESTIMATED > 60; GLUCOSE 172 MG/DL (70-105); TOTAL PROTEIN 5.7 GM/DL (6.4-8.2)
[2018-11-04 13:55] LABS: BASOPHILS % (AUTO) 0 % (0-10); EOSINOPHILS % (AUTO) 0 % (0-10); HEMATOCRIT 34 % (35-52); HEMOGLOBIN 10.8 G/DL (11.5-16.0); LYMPHOCYTES # (AUTO) 0.2 X 10^3 (1.0-4.0); LYMPHOCYTES % (AUTO) 2 % (12-44); MEAN CORPUSCULAR HEMOGLOBIN 30 PG (25-34); MEAN CORPUSCULAR HGB CONC 31 G/DL (32-36); MEAN CORPUSCULAR VOLUME 97 FL (80-99); MEAN PLATELET VOLUME 9.9 FL (7.4-10.4); MONOCYTES # (AUTO) 0.4 X 10^3 (0.0-1.0); MONOCYTES % (AUTO) 4 % (0-12); NEUTROPHILS # (AUTO) 9.4 X 10^3 (1.8-7.8); NEUTROPHILS % (AUTO) 93 % (42-75); PLATELET COUNT 244 10^3/uL (130-400); RED CELL DISTRIBUTION WIDTH 14.8 % (10.0-14.5); WHITE BLOOD COUNT 10.1 10^3/uL (4.3-11.0)
[2018-11-04 14:20] LABS: ALBUMIN 3.7 GM/DL (3.2-4.5); BILIRUBIN,TOTAL 0.2 MG/DL (0.1-1.0); CALCIUM 9.2 MG/DL (8.5-10.1); CREATININE SERUM 0.95 MG/DL (0.60-1.30); POTASSIUM 4.1 MMOL/L (3.6-5.0)
[2018-11-18 14:06] LABS: BASOPHILS % (AUTO) 0 % (0-10); EOSINOPHILS % (AUTO) 1 % (0-10); HEMATOCRIT 34 % (35-52); HEMOGLOBIN 10.4 G/DL (11.5-16.0); LYMPHOCYTES # (AUTO) 0.2 X 10^3 (1.0-4.0); LYMPHOCYTES % (AUTO) 3 % (12-44); MEAN CORPUSCULAR HEMOGLOBIN 30 PG (25-34); MEAN CORPUSCULAR HGB CONC 31 G/DL (32-36); MEAN CORPUSCULAR VOLUME 96 FL (80-99); MEAN PLATELET VOLUME 9.6 FL (7.4-10.4); MONOCYTES # (AUTO) 0.4 X 10^3 (0.0-1.0); MONOCYTES % (AUTO) 5 % (0-12); NEUTROPHILS # (AUTO) 8.1 X 10^3 (1.8-7.8); NEUTROPHILS % (AUTO) 92 % (42-75); PLATELET COUNT 213 10^3/uL (130-400); RED CELL DISTRIBUTION WIDTH 14.9 % (10.0-14.5); WHITE BLOOD COUNT 8.8 10^3/uL (4.3-11.0)
[2018-11-18 14:35] LABS: ALANINE AMINOTRANSFERASE 39 U/L (0-55); ALBUMIN 3.7 GM/DL (3.2-4.5); ALKALINE PHOSPHATASE 84 U/L (40-136); BILIRUBIN,TOTAL 0.2 MG/DL (0.1-1.0); BUN/CREATININE RATIO 23; CALCIUM 9.2 MG/DL (8.5-10.1); CARBON DIOXIDE 24 MMOL/L (21-32); CHLORIDE 107 MMOL/L (98-107); CREATININE SERUM 0.77 MG/DL (0.60-1.30); GFR ESTIMATED > 60; GLUCOSE 141 MG/DL (70-105); POTASSIUM 4.1 MMOL/L (3.6-5.0); SODIUM 139 MMOL/L (135-145); TOTAL PROTEIN 5.8 GM/DL (6.4-8.2)
[2018-12-16 13:57] LABS: BASOPHILS % (AUTO) 0 % (0-10); EOSINOPHILS % (AUTO) 0 % (0-10); HEMATOCRIT 36 % (35-52); HEMOGLOBIN 11.6 G/DL (11.5-16.0); LYMPHOCYTES # (AUTO) 0.4 X 10^3 (1.0-4.0); LYMPHOCYTES % (AUTO) 3 % (12-44); MEAN CORPUSCULAR HEMOGLOBIN 30 PG (25-34); MEAN CORPUSCULAR HGB CONC 32 G/DL (32-36); MEAN CORPUSCULAR VOLUME 94 FL (80-99); MEAN PLATELET VOLUME 9.7 FL (7.4-10.4); MONOCYTES # (AUTO) 0.4 X 10^3 (0.0-1.0); MONOCYTES % (AUTO) 4 % (0-12); NEUTROPHILS # (AUTO) 10.2 X 10^3 (1.8-7.8); NEUTROPHILS % (AUTO) 92 % (42-75); PLATELET COUNT 260 10^3/uL (130-400); RED CELL DISTRIBUTION WIDTH 15.5 % (10.0-14.5); WHITE BLOOD COUNT 11.1 10^3/uL (4.3-11.0)
[2018-12-16 14:12] LABS: ALANINE AMINOTRANSFERASE 42 U/L (0-55); ALBUMIN 4.1 GM/DL (3.2-4.5); ALKALINE PHOSPHATASE 88 U/L (40-136); BILIRUBIN,TOTAL 0.3 MG/DL (0.1-1.0); BUN/CREATININE RATIO 26; CALCIUM 9.9 MG/DL (8.5-10.1); CARBON DIOXIDE 22 MMOL/L (21-32); CHLORIDE 107 MMOL/L (98-107); GFR ESTIMATED > 60; GLUCOSE 152 MG/DL (70-105); POTASSIUM 4.4 MMOL/L (3.6-5.0); SODIUM 141 MMOL/L (135-145); TOTAL PROTEIN 6.6 GM/DL (6.4-8.2)
[~2019-01-13] VITALS: Ht 165.1 cm; Wt 93.9 kg
[2019-01-13 12:28] LABS: BASOPHILS % (AUTO) 0 % (0-10); EOSINOPHILS % (AUTO) 1 % (0-10); HEMATOCRIT 36 % (35-52); HEMOGLOBIN 11.7 G/DL (11.5-16.0); LYMPHOCYTES # (AUTO) 0.3 X 10^3 (1.0-4.0); LYMPHOCYTES % (AUTO) 3 % (12-44); MEAN CORPUSCULAR HEMOGLOBIN 31 PG (25-34); MEAN CORPUSCULAR HGB CONC 33 G/DL (32-36); MEAN CORPUSCULAR VOLUME 94 FL (80-99); MONOCYTES # (AUTO) 0.4 X 10^3 (0.0-1.0); MONOCYTES % (AUTO) 5 % (0-12); NEUTROPHILS # (AUTO) 7.8 X 10^3 (1.8-7.8); NEUTROPHILS % (AUTO) 92 % (42-75); PLATELET COUNT 259 10^3/uL (130-400); RED CELL DISTRIBUTION WIDTH 14.6 % (10.0-14.5); WHITE BLOOD COUNT 8.5 10^3/uL (4.3-11.0)
[2019-01-13 12:50] LABS: ALANINE AMINOTRANSFERASE 27 U/L (0-55); ALKALINE PHOSPHATASE 81 U/L (40-136); BILIRUBIN,TOTAL 0.2 MG/DL (0.1-1.0); BUN/CREATININE RATIO 21; CALCIUM 9.6 MG/DL (8.5-10.1); CARBON DIOXIDE 24 MMOL/L (21-32); CHLORIDE 111 MMOL/L (98-107); CREATININE SERUM 0.81 MG/DL (0.60-1.30); GFR ESTIMATED > 60; GLUCOSE 125 MG/DL (70-105); POTASSIUM 4.3 MMOL/L (3.6-5.0); SODIUM 142 MMOL/L (135-145); TOTAL PROTEIN 6.3 GM/DL (6.4-8.2)
[~2019-01-13 13:05] MED LIST changes: +ALTEPLASE 2 MG (CATHFLO) CANCER CENTER IV ONE; -BARIUM SUSPENSION 2.1% (VANILLA SILQ) 450 ML PO ONE; +DURVALUMAB IV SCH; -HOLD METFORMIN - RECEIVED CONTRAST 20 ML VIAL IV SCH; -IOHEXOL 350 MG/ML 100 ML (OMNIPAQUE 350) VIAL IV ONE; +NS IV 500 ML (CANCER CENTER) IV SCH; +NS IV SCH; +ONDANSETRON 4 MG (ZOFRAN) ORAL DISSOLVE TAB PO ONE; +morphine INJ 4 MG/ML 1 ML (CANCER CTR) IV ONE
== END 2019-01-19 | disposition home or self-care (01) ==
LOC: ONC 13:05
PROVIDERS: ATTEND Internal Medicine Hematology & Oncology
DX: C34.31 Malignant neoplasm of lower lobe, right bronchus or lung (principal); J44.9 Chronic obstructive pulmonary disease, unspecified; M95.4 Acquired deformity of chest and rib; R92.8 Other abnormal and inconclusive findings on diagnostic imaging of breast; K57.30 Diverticulosis of large intestine without perforation or abscess without bleeding; K76.0 Fatty (change of) liver, not elsewhere classified; K42.9 Umbilical hernia without obstruction or gangrene; Z90.49 Acquired absence of other specified parts of digestive tract; Z87.891 Personal history of nicotine dependence
CPT/HCPCS: 36591; 36593; 80053; 85025; 96375; 96413

== ENCOUNTER → 2019-01-13 | Outpatient (CLI) | payer MEDICARE, MEDICAID ==
[~2019-01-13] MED LIST changes: +BARIUM SUSPENSION 2.1% (VANILLA SILQ) 450 ML PO ONE; +HOLD METFORMIN - RECEIVED CONTRAST 20 ML VIAL IV SCH; +IOHEXOL 350 MG/ML 100 ML (OMNIPAQUE 350) VIAL IV ONE
--- NOTE | 2019-01-13 15:01 | Diagnostic Imaging Report ---
INDICATION: Lung carcinoma. Pre-and postcontrast axial imaging through the abdomen with postcontrast axial imaging through the neck and chest was performed. Comparison is made with most recent CT chest from [facility] on 09/27/2018 as well as prior CT abdomen and pelvis study from [facility] performed on 09/03/2018. No prior neck CT is available for comparison. CT NECK: Visualized intracranial structures are unremarkable. Posterior nasopharynx oropharynx are unremarkable. Parapharyngeal fat planes are preserved. Epiglottis and larynx are unremarkable. No thyroid mass is detected. Submandibular and parotid glands appear to be symmetric. No cervical lymphadenopathy is seen. IMPRESSION: Unremarkable CT of the neck. CT CHEST: A left chest wall port has the tip within the SVC. No axillary lymphadenopathy is seen. No mediastinal or hilar lymphadenopathy is detected. No pericardial or pleural fluid is detected. Parenchymal evaluation again demonstrates severe emphysematous changes throughout both lungs. Previously noted parenchymal density in the posterior and slightly medial right lower lobe remains stable. The lesion is irregular and somewhat difficult to measure but measures approximately 4.1 x 2.8 cm compared with approximately 4.0 x 2.5 cm. No new parenchymal opacity is seen. IMPRESSION: Stable right lower lobe parenchymal density. No thoracic lymphadenopathy is identified. CT ABDOMEN AND PELVIS: Generalized hepatic steatosis is again noted. No discrete liver mass is identified. The gallbladder is surgically absent. No biliary ductal dilatation seen. The pancreas and spleen are unremarkable. No adrenal mass is identified. Small cortical low densities upper pole right kidney are stable. Aorta is non-aneurysmal. No central, retroperitoneal or mesenteric lymphadenopathy is seen. Small and large bowel loops are normal caliber. Small fat containing umbilical hernia is seen. No herniated bowel loops are seen on today's study. No ascites. There is diverticulosis of the sigmoid but no evidence of acute diverticulitis. Bladder is unremarkable. No definite pelvic lymphadenopathy is seen. Bony structures are nonacute. IMPRESSION: Stable CT abdomen pelvis with comparison exam from 09/03/2018. There is hepatic steatosis and uncomplicated diverticulosis. No abdominal or pelvic lymphadenopathy or evidence of metastatic disease is identified. Dictated by: Dictated on workstation # [id number]
== END ==
LOC: RAD 11:58
PROVIDERS: ATTEND Internal Medicine Hematology & Oncology
DX: C34.31 Malignant neoplasm of lower lobe, right bronchus or lung (principal); J98.4 Other disorders of lung; K57.30 Diverticulosis of large intestine without perforation or abscess without bleeding; K76.0 Fatty (change of) liver, not elsewhere classified; Z90.49 Acquired absence of other specified parts of digestive tract; Z95.828 Presence of other vascular implants and grafts
CPT/HCPCS: 70491; 71260; 74178

== ENCOUNTER → 2019-04-07 | Outpatient (CLI) | payer MEDICARE, MEDICAID ==
[~2019-04-07] MED LIST changes: -ALTEPLASE 2 MG (CATHFLO) CANCER CENTER IV ONE; -DURVALUMAB IV SCH; -NS IV 500 ML (CANCER CENTER) IV SCH; -NS IV SCH; -ONDANSETRON 4 MG (ZOFRAN) ORAL DISSOLVE TAB PO ONE; -morphine INJ 4 MG/ML 1 ML (CANCER CTR) IV ONE
--- NOTE | 2019-04-07 12:45 | Diagnostic Imaging Report ---
PROCEDURE: CT chest with contrast, CT abdomen and pelvis with and without contrast. TECHNIQUE: Pre and post intravenous contrast axial imaging of the abdomen and pelvis and post contrast axial imaging of the chest were performed. Auto Exposure Controls were utilized during the CT exam to meet ALARA standards for radiation dose reduction. INDICATION: Lung cancer, followup. COMPARISON: Correlation is made with prior CT from 01/13/2019. FINDINGS: CT chest: The left chest wall port remains in place with the tip within the SVC. No axillary lymphadenopathy is detected. No mediastinal or hilar lymphadenopathy is detected. No pericardial or pleural fluid is identified. Parenchymal evaluation again demonstrates significant emphysematous changes in both lungs. The irregular density in the posterior medial right lower lobe measures slightly smaller on today's study at 4.0 x 2.4 cm compared with 4.1 x 2.8 cm. No new parenchymal density is identified. Evaluation of the bony structures does show interval development of compression deformity and sclerosis involving the T7 vertebral body. T8 and T9 vertebral body chronic compression fractures appear to be similar to prior study. IMPRESSION: 1. Stable to slight decrease in size of irregular right lower lobe density when compared with prior study from 01/13/2019. No thoracic lymphadenopathy is detected. 2. Development of some sclerosis and mild compression deformity involving T7 vertebral body since exam from December. No retropulsion is seen. CT abdomen and pelvis: Generalized low-density throughout the liver is again seen consistent with hepatic steatosis. No discrete liver mass is identified. The gallbladder is surgically absent. No biliary ductal dilatation is seen. The pancreas and spleen are unremarkable. No adrenal mass is detected. Right kidney contains small cortical low densities in the upper pole which are stable and most consistent with cysts. The aorta is calcified but nonaneurysmal. No central, retroperitoneal, or mesenteric lymphadenopathy is seen. The small and large bowel loops are normal caliber. There is a small fat-containing umbilical hernia. There is diverticulosis of the sigmoid but no evidence of acute diverticulitis. The bladder is unremarkable. IMPRESSION: 1. Continued stable CT of the abdomen and pelvis and study from 01/13/2019. There is hepatic steatosis. No abdominal or pelvic lymphadenopathy or metastatic disease is seen. 2. Uncomplicated diverticulosis. Dictated by: Dictated on workstation # [id number]
== END ==
LOC: RAD 11:01
PROVIDERS: ATTEND Internal Medicine Hematology & Oncology
DX: C34.90 Malignant neoplasm of unspecified part of unspecified bronchus or lung (principal); M43.8X4 Other specified deforming dorsopathies, thoracic region; M89.9 Disorder of bone, unspecified; K76.0 Fatty (change of) liver, not elsewhere classified; K57.30 Diverticulosis of large intestine without perforation or abscess without bleeding; Z90.49 Acquired absence of other specified parts of digestive tract; Z95.828 Presence of other vascular implants and grafts
CPT/HCPCS: 71260; 74178

== ENCOUNTER 2019-04-20 12:47 | Outpatient (RCR) | payer MEDICARE, MEDICAID ==
[2019-02-10 15:06] LABS: BASOPHILS % (AUTO) 0 % (0-10); EOSINOPHILS % (AUTO) 0 % (0-10); HEMATOCRIT 38 % (35-52); LYMPHOCYTES # (AUTO) 0.5 X 10^3 (1.0-4.0); LYMPHOCYTES % (AUTO) 4 % (12-44); MEAN CORPUSCULAR HEMOGLOBIN 30 PG (25-34); MEAN CORPUSCULAR HGB CONC 31 G/DL (32-36); MEAN CORPUSCULAR VOLUME 97 FL (80-99); MEAN PLATELET VOLUME 9.4 FL (7.4-10.4); MONOCYTES # (AUTO) 0.7 X 10^3 (0.0-1.0); MONOCYTES % (AUTO) 5 % (0-12); NEUTROPHILS # (AUTO) 11.3 X 10^3 (1.8-7.8); NEUTROPHILS % (AUTO) 90 % (42-75); PLATELET COUNT 276 10^3/uL (130-400); RED CELL DISTRIBUTION WIDTH 14.7 % (10.0-14.5); WHITE BLOOD COUNT 12.5 10^3/uL (4.3-11.0)
[2019-02-10 15:17] LABS: ALBUMIN 4.4 GM/DL (3.2-4.5); BILIRUBIN,TOTAL 0.2 MG/DL (0.1-1.0); CALCIUM 9.8 MG/DL (8.5-10.1); CREATININE SERUM 1.08 MG/DL (0.60-1.30); POTASSIUM 4.6 MMOL/L (3.6-5.0); TOTAL PROTEIN 6.8 GM/DL (6.4-8.2)
[2019-03-10 13:18] LABS: BASOPHILS % (AUTO) 0 % (0-10); EOSINOPHILS # (AUTO) 0.1 10^3/uL (0.0-0.3); EOSINOPHILS % (AUTO) 1 % (0-10); HEMATOCRIT 37 % (35-52); HEMOGLOBIN 11.6 G/DL (11.5-16.0); LYMPHOCYTES # (AUTO) 0.4 X 10^3 (1.0-4.0); LYMPHOCYTES % (AUTO) 4 % (12-44); MEAN CORPUSCULAR HEMOGLOBIN 30 PG (25-34); MEAN CORPUSCULAR HGB CONC 32 G/DL (32-36); MEAN CORPUSCULAR VOLUME 94 FL (80-99); MEAN PLATELET VOLUME 9.8 FL (7.4-10.4); MONOCYTES # (AUTO) 0.5 X 10^3 (0.0-1.0); MONOCYTES % (AUTO) 5 % (0-12); NEUTROPHILS # (AUTO) 9.3 X 10^3 (1.8-7.8); NEUTROPHILS % (AUTO) 90 % (42-75); PLATELET COUNT 261 10^3/uL (130-400); RED CELL DISTRIBUTION WIDTH 14.2 % (10.0-14.5); WHITE BLOOD COUNT 10.3 10^3/uL (4.3-11.0)
[2019-03-10 13:32] LABS: ALANINE AMINOTRANSFERASE 27 U/L (0-55); ALKALINE PHOSPHATASE 74 U/L (40-136); BILIRUBIN,TOTAL 0.3 MG/DL (0.1-1.0); BUN/CREATININE RATIO 20; CALCIUM 9.2 MG/DL (8.5-10.1); CARBON DIOXIDE 23 MMOL/L (21-32); CHLORIDE 108 MMOL/L (98-107); CREATININE SERUM 0.84 MG/DL (0.60-1.30); GFR ESTIMATED > 60; GLUCOSE 141 MG/DL (70-105); POTASSIUM 4.3 MMOL/L (3.6-5.0); SODIUM 144 MMOL/L (135-145); TOTAL PROTEIN 6.2 GM/DL (6.4-8.2)
[2019-04-07 10:56] LABS: BASOPHILS % (AUTO) 0 % (0-10); EOSINOPHILS % (AUTO) 0 % (0-10); HEMATOCRIT 37 % (35-52); HEMOGLOBIN 11.8 G/DL (11.5-16.0); LYMPHOCYTES # (AUTO) 0.3 X 10^3 (1.0-4.0); LYMPHOCYTES % (AUTO) 4 % (12-44); MEAN CORPUSCULAR HEMOGLOBIN 31 PG (25-34); MEAN CORPUSCULAR HGB CONC 32 G/DL (32-36); MEAN CORPUSCULAR VOLUME 95 FL (80-99); MEAN PLATELET VOLUME 9.8 FL (7.4-10.4); MONOCYTES # (AUTO) 0.4 X 10^3 (0.0-1.0); MONOCYTES % (AUTO) 5 % (0-12); NEUTROPHILS # (AUTO) 8.8 X 10^3 (1.8-7.8); NEUTROPHILS % (AUTO) 92 % (42-75); PLATELET COUNT 241 10^3/uL (130-400); RED CELL DISTRIBUTION WIDTH 13.9 % (10.0-14.5); WHITE BLOOD COUNT 9.6 10^3/uL (4.3-11.0)
[2019-04-07 11:19] LABS: ALANINE AMINOTRANSFERASE 35 U/L (0-55); ALBUMIN 4.1 GM/DL (3.2-4.5); ALKALINE PHOSPHATASE 83 U/L (40-136); BILIRUBIN,TOTAL 0.3 MG/DL (0.1-1.0); BUN/CREATININE RATIO 23; CALCIUM 9.3 MG/DL (8.5-10.1); CARBON DIOXIDE 23 MMOL/L (21-32); CHLORIDE 106 MMOL/L (98-107); CREATININE SERUM 0.86 MG/DL (0.60-1.30); GFR ESTIMATED > 60; GLUCOSE 176 MG/DL (70-105); POTASSIUM 3.9 MMOL/L (3.6-5.0); SODIUM 141 MMOL/L (135-145); TOTAL PROTEIN 6.3 GM/DL (6.4-8.2)
[~2019-04-20] VITALS: Ht 165.1 cm; Wt 93.9 kg
[~2019-04-20 12:47] MED LIST changes: +ALTEPLASE 2 MG (CATHFLO) CANCER CENTER IV ONE; +DURVALUMAB IV SCH; +NS IV 500 ML (CANCER CENTER) IV SCH; +NS IV SCH
== END 2019-04-27 | disposition home or self-care (01) ==
LOC: ONC 12:47
PROVIDERS: ATTEND Internal Medicine Hematology & Oncology
DX: Z51.11 Encounter for antineoplastic chemotherapy (principal); C34.31 Malignant neoplasm of lower lobe, right bronchus or lung; J44.9 Chronic obstructive pulmonary disease, unspecified; M95.4 Acquired deformity of chest and rib; R92.8 Other abnormal and inconclusive findings on diagnostic imaging of breast; K57.30 Diverticulosis of large intestine without perforation or abscess without bleeding; K76.0 Fatty (change of) liver, not elsewhere classified; K42.9 Umbilical hernia without obstruction or gangrene; Z90.49 Acquired absence of other specified parts of digestive tract; Z87.891 Personal history of nicotine dependence
CPT/HCPCS: 36591; 80053; 85025; 96413

== ENCOUNTER → 2019-06-30 | Outpatient (CLI) | payer MEDICARE, MEDICAID ==
[~2019-06-30] MED LIST changes: -ALTEPLASE 2 MG (CATHFLO) CANCER CENTER IV ONE; +CATHETER FLUSH 10 ML SYR IV PRN; -DURVALUMAB IV SCH; +HOLD METFORMIN - RECEIVED CONTRAST 20 ML VIAL IV SCH; +IOHEXOL 350 MG/ML 100 ML (OMNIPAQUE 350) VIAL IV ONE; +NS 100 ML (IVPB) BAG IV ONE; -NS IV 500 ML (CANCER CENTER) IV SCH; -NS IV SCH
--- NOTE | 2019-06-30 13:39 | Diagnostic Imaging Report ---
PROCEDURE: CT chest with contrast, CT abdomen with and without contrast. TECHNIQUE: Precontrast acquisitions were acquired through the abdomen. Multiple contiguous axial images were obtained through the chest and abdomen after administration of intravenous contrast. Auto Exposure Controls were utilized during the CT exam to meet ALARA standards for radiation dose reduction. INDICATION: Lung carcinoma. Patient complains of some nausea. COMPARISON: Correlation is made with prior CT from 04/07/2019. FINDINGS: CT chest: A left chest wall port remains in place. The axillae are unremarkable. No mediastinal or hilar lymphadenopathy is seen. There is no pericardial or pleural fluid detected. Emphysematous changes throughout both lungs are again noted. The parenchymal density previously described in the posterior medial right lower lobe appears stable approximately 3.8 x 2.5 cm compared with 4.0 x 2.4 cm. No new parenchymal abnormality is identified. Previously noted compression deformities involving T7, T8 and T9 vertebral bodies appear similar to prior exam. No new compression is identified. IMPRESSION: Stable CT chest with contrast when compared with exam from 04/07/2019. CT abdomen: Generalized low-density throughout the liver is noted consistent with hepatic steatosis. No discrete liver mass is identified. The gallbladder is surgically absent. There is no biliary ductal dilatation. Pancreas and spleen remain unremarkable. No adrenal mass is seen. Previously noted renal cortical low densities appear stable. Aorta is nonaneurysmal. There is no central retroperitoneal or mesenteric lymphadenopathy. Moderate stool throughout the colon is noted. There is no ascites. Bony structures are nonacute. IMPRESSION: Stable CT of the abdomen since study 04/07/2019. No lymphadenopathy or evidence of metastatic disease is identified. Dictated by: Dictated on workstation # [id number]
== END ==
LOC: RAD 11:57
PROVIDERS: ATTEND Internal Medicine Hematology & Oncology
DX: C34.90 Malignant neoplasm of unspecified part of unspecified bronchus or lung (principal)
CPT/HCPCS: 71260; 74170

== ENCOUNTER → 2019-06-30 | Outpatient (CLI) | payer MEDICARE, MEDICAID ==
[~2019-06-30] MED LIST changes: -CATHETER FLUSH 10 ML SYR IV PRN; -HOLD METFORMIN - RECEIVED CONTRAST 20 ML VIAL IV SCH; -IOHEXOL 350 MG/ML 100 ML (OMNIPAQUE 350) VIAL IV ONE; -NS 100 ML (IVPB) BAG IV ONE
== END ==
LOC: LAB 11:40
PROVIDERS: ATTEND Internal Medicine Endocrinology, Diabetes & Metabolism
DX: E05.90 Thyrotoxicosis, unspecified without thyrotoxic crisis or storm (principal)
CPT/HCPCS: 36415; 84443

== ENCOUNTER → 2019-07-11 | Outpatient (CLI) | payer MEDICARE, MEDICAID ==
--- NOTE | 2019-07-11 11:47 | Diagnostic Imaging Report ---
PROCEDURE: US Hepatic (Liver). TECHNIQUE: Multiple real-time grayscale images were obtained over the right upper quadrant in various projections. INDICATION: Elevated liver enzymes. FINDINGS: Liver measures 16 cm in size. There is generalized increased echogenicity consistent with hepatic steatosis. No discrete liver mass is identified. The portal vein is patent and shows normal direction of flow. The gallbladder is surgically absent. No biliary duct dilatation is seen. Visualized pancreas is unremarkable. Right kidney contains a 1 cm cyst in the midportion. No calculi or hydronephrosis is identified. There is no ascites. IMPRESSION: 1. Hepatic steatosis. 2. Small right renal cyst. Dictated by: Dictated on workstation # [id number]
== END ==
LOC: RAD 09:14
PROVIDERS: ATTEND Internal Medicine Hematology & Oncology
DX: K76.0 Fatty (change of) liver, not elsewhere classified (principal); N28.1 Cyst of kidney, acquired; Z90.49 Acquired absence of other specified parts of digestive tract
CPT/HCPCS: 76705

== ENCOUNTER 2019-07-14 14:08 | Outpatient (RCR) | payer MEDICARE, MEDICAID ==
[2019-05-05 13:58] LABS: BASOPHILS % (AUTO) 0 % (0-10); EOSINOPHILS % (AUTO) 0 % (0-10); HEMATOCRIT 37 % (35-52); HEMOGLOBIN 11.7 G/DL (11.5-16.0); LYMPHOCYTES # (AUTO) 0.3 X 10^3 (1.0-4.0); LYMPHOCYTES % (AUTO) 3 % (12-44); MEAN CORPUSCULAR HEMOGLOBIN 30 PG (25-34); MEAN CORPUSCULAR HGB CONC 32 G/DL (32-36); MEAN CORPUSCULAR VOLUME 96 FL (80-99); MEAN PLATELET VOLUME 9.9 FL (7.4-10.4); MONOCYTES # (AUTO) 0.4 X 10^3 (0.0-1.0); MONOCYTES % (AUTO) 4 % (0-12); NEUTROPHILS # (AUTO) 8.7 X 10^3 (1.8-7.8); NEUTROPHILS % (AUTO) 92 % (42-75); PLATELET COUNT 228 10^3/uL (130-400); RED CELL DISTRIBUTION WIDTH 14.1 % (10.0-14.5); WHITE BLOOD COUNT 9.4 10^3/uL (4.3-11.0)
[2019-05-05 14:16] LABS: ALANINE AMINOTRANSFERASE 36 U/L (0-55); ALKALINE PHOSPHATASE 90 U/L (40-136); BILIRUBIN,TOTAL 0.3 MG/DL (0.1-1.0); BUN/CREATININE RATIO 21; CALCIUM 9.3 MG/DL (8.5-10.1); CARBON DIOXIDE 26 MMOL/L (21-32); CHLORIDE 106 MMOL/L (98-107); CREATININE SERUM 0.85 MG/DL (0.60-1.30); GFR ESTIMATED > 60; GLUCOSE 207 MG/DL (70-105); SODIUM 142 MMOL/L (135-145); TOTAL PROTEIN 6.3 GM/DL (6.4-8.2)
[2019-06-02 14:16] LABS: BASOPHILS % (AUTO) 0 % (0-10); EOSINOPHILS % (AUTO) 0 % (0-10); HEMATOCRIT 38 % (35-52); HEMOGLOBIN 11.9 G/DL (11.5-16.0); LYMPHOCYTES # (AUTO) 0.3 X 10^3 (1.0-4.0); LYMPHOCYTES % (AUTO) 3 % (12-44); MEAN CORPUSCULAR HEMOGLOBIN 30 PG (25-34); MEAN CORPUSCULAR HGB CONC 31 G/DL (32-36); MEAN CORPUSCULAR VOLUME 95 FL (80-99); MONOCYTES # (AUTO) 0.4 X 10^3 (0.0-1.0); MONOCYTES % (AUTO) 5 % (0-12); NEUTROPHILS # (AUTO) 7.6 X 10^3 (1.8-7.8); NEUTROPHILS % (AUTO) 92 % (42-75); PLATELET COUNT 247 10^3/uL (130-400); RED CELL DISTRIBUTION WIDTH 14.3 % (10.0-14.5); WHITE BLOOD COUNT 8.3 10^3/uL (4.3-11.0)
[2019-06-02 14:38] LABS: ALBUMIN 4.1 GM/DL (3.2-4.5); BILIRUBIN,TOTAL 0.3 MG/DL (0.1-1.0); CREATININE SERUM 1.06 MG/DL (0.60-1.30); POTASSIUM 4.2 MMOL/L (3.6-5.0); TOTAL PROTEIN 6.5 GM/DL (6.4-8.2)
[2019-06-16 14:48] LABS: ALANINE AMINOTRANSFERASE 257 U/L (0-55); ALBUMIN 3.8 GM/DL (3.2-4.5); ALKALINE PHOSPHATASE 354 U/L (40-136); BILIRUBIN,TOTAL 0.7 MG/DL (0.1-1.0); BUN/CREATININE RATIO 18; CARBON DIOXIDE 23 MMOL/L (21-32); CHLORIDE 105 MMOL/L (98-107); CREATININE SERUM 0.77 MG/DL (0.60-1.30); GFR ESTIMATED > 60; GLUCOSE 284 MG/DL (70-105); POTASSIUM 4.3 MMOL/L (3.6-5.0); SODIUM 139 MMOL/L (135-145); TOTAL PROTEIN 6.4 GM/DL (6.4-8.2)
[2019-06-30 11:52] LABS: BASOPHILS % (AUTO) 0 % (0-10); EOSINOPHILS % (AUTO) 0 % (0-10); HEMATOCRIT 39 % (35-52); HEMOGLOBIN 12.5 G/DL (11.5-16.0); LYMPHOCYTES # (AUTO) 0.3 X 10^3 (1.0-4.0); LYMPHOCYTES % (AUTO) 3 % (12-44); MEAN CORPUSCULAR HEMOGLOBIN 30 PG (25-34); MEAN CORPUSCULAR HGB CONC 32 G/DL (32-36); MEAN CORPUSCULAR VOLUME 94 FL (80-99); MEAN PLATELET VOLUME 10.4 FL (7.4-10.4); MONOCYTES # (AUTO) 0.6 X 10^3 (0.0-1.0); MONOCYTES % (AUTO) 6 % (0-12); NEUTROPHILS # (AUTO) 8.7 X 10^3 (1.8-7.8); NEUTROPHILS % (AUTO) 90 % (42-75); PLATELET COUNT 292 10^3/uL (130-400); RED CELL DISTRIBUTION WIDTH 14.7 % (10.0-14.5); WHITE BLOOD COUNT 9.6 10^3/uL (4.3-11.0)
[2019-06-30 12:10] LABS: ALBUMIN 4.1 GM/DL (3.2-4.5); BILIRUBIN,TOTAL 0.6 MG/DL (0.1-1.0); CALCIUM 9.8 MG/DL (8.5-10.1); CREATININE SERUM 0.97 MG/DL (0.60-1.30); POTASSIUM 4.7 MMOL/L (3.6-5.0); TOTAL PROTEIN 6.7 GM/DL (6.4-8.2)
[2019-07-07 14:44] LABS: ALBUMIN 4.4 GM/DL (3.2-4.5); BILIRUBIN,TOTAL 0.3 MG/DL (0.1-1.0); CREATININE SERUM 1.12 MG/DL (0.60-1.30); POTASSIUM 4.6 MMOL/L (3.6-5.0); TOTAL PROTEIN 6.8 GM/DL (6.4-8.2)
[2019-07-07 22:21] LABS: HEPATITIS C ANTIBODY C Non-Reactive (Non-Reactive)
[~2019-07-14 14:08] MED LIST changes: +ALTEPLASE 2 MG (CATHFLO) CANCER CENTER IV ONE; +DURVALUMAB IV SCH; +NS IV 500 ML (CANCER CENTER) IV SCH; +NS IV SCH
[2019-07-14 15:04] LABS: BASOPHILS % (AUTO) 0 % (0-10); EOSINOPHILS % (AUTO) 0 % (0-10); HEMATOCRIT 39 % (35-52); HEMOGLOBIN 12.7 G/DL (11.5-16.0); LYMPHOCYTES # (AUTO) 0.2 X 10^3 (1.0-4.0); LYMPHOCYTES % (AUTO) 2 % (12-44); MEAN CORPUSCULAR HEMOGLOBIN 31 PG (25-34); MEAN CORPUSCULAR HGB CONC 33 G/DL (32-36); MEAN CORPUSCULAR VOLUME 93 FL (80-99); MEAN PLATELET VOLUME 10.5 FL (7.4-10.4); MONOCYTES # (AUTO) 0.6 X 10^3 (0.0-1.0); MONOCYTES % (AUTO) 5 % (0-12); NEUTROPHILS # (AUTO) 11.5 X 10^3 (1.8-7.8); NEUTROPHILS % (AUTO) 93 % (42-75); PLATELET COUNT 190 10^3/uL (130-400); RED CELL DISTRIBUTION WIDTH 14.8 % (10.0-14.5); WHITE BLOOD COUNT 12.4 10^3/uL (4.3-11.0)
[2019-07-14 15:23] LABS: ALANINE AMINOTRANSFERASE 94 U/L (0-55); ALKALINE PHOSPHATASE 151 U/L (40-136); BILIRUBIN,TOTAL 0.3 MG/DL (0.1-1.0); BUN/CREATININE RATIO 19; CARBON DIOXIDE 25 MMOL/L (21-32); CHLORIDE 105 MMOL/L (98-107); CREATININE SERUM 0.91 MG/DL (0.60-1.30); GFR ESTIMATED > 60; GLUCOSE 350 MG/DL (70-105); POTASSIUM 4.6 MMOL/L (3.6-5.0); SODIUM 136 MMOL/L (135-145); TOTAL PROTEIN 6.1 GM/DL (6.4-8.2)
[2019-07-27] MEDS ORDERED: FLUT16SP22 NS (08:47)
[2019-07-27] MEDS ORDERED: METF-397 PO (08:47)
[2019-07-27] MEDS ORDERED: ALBU18HF2 INH (08:47)
[2019-07-27] MEDS ORDERED: METH5TAB5 PO (08:47)
[2019-07-27] MEDS ORDERED: DILT240C PO (08:47)
== END 2019-08-03 | disposition home or self-care (01) ==
LOC: ONC 14:08
PROVIDERS: ATTEND Internal Medicine Hematology & Oncology
DX: Z51.11 Encounter for antineoplastic chemotherapy (principal); C34.31 Malignant neoplasm of lower lobe, right bronchus or lung; J44.9 Chronic obstructive pulmonary disease, unspecified; M95.4 Acquired deformity of chest and rib; R92.8 Other abnormal and inconclusive findings on diagnostic imaging of breast; K57.30 Diverticulosis of large intestine without perforation or abscess without bleeding; K76.0 Fatty (change of) liver, not elsewhere classified; K42.9 Umbilical hernia without obstruction or gangrene; Z90.49 Acquired absence of other specified parts of digestive tract; Z87.891 Personal history of nicotine dependence; Z45.2 Encounter for adjustment and management of vascular access device
CPT/HCPCS: 36415; 36591; 36593; 80053; 80074; 85025; 96413; 96523; 99213

== ENCOUNTER 2019-07-26 21:21 | Inpatient (IN) | payer MEDICARE, MEDICAID ==
[~2019-07-26] VITALS: Ht 167 cm; Wt 98.6 kg
[~2019-07-26 21:21] MED LIST changes: -ALTEPLASE 2 MG (CATHFLO) CANCER CENTER IV ONE; -DURVALUMAB IV SCH; -NS IV 500 ML (CANCER CENTER) IV SCH; -NS IV SCH
[2019-07-26] MEDS ORDERED: methylPREDNISolone 125 MG (Solu-MEDROL) VIAL IV STA (21:26)
[2019-07-26] MEDS ORDERED: DEXAMETHASONE 4 MG/ML SDV (DECADRON) IH ONE (21:30)
[2019-07-26] MEDS ORDERED: RT-ALBUTEROL/IPRATROPIUM 3 ML (DUONEB) VIAL INH ONE (21:30)
[2019-07-26 21:37] LABS: CLARITY,URINE SLIGHTLY CLOUDY; COLOR,URINE BROWN; GLUCOSE, URINE (UA) 3+ (NEGATIVE); KETONES,URINE 1+ (NEGATIVE); LEUKOCYTE ESTERASE ,URINE 2+ (NEGATIVE); NITRITE,URINE NEGATIVE (NEGATIVE); PH,URINE 5 (5-9); PROTEIN,URINE 2+ (NEGATIVE)
[2019-07-26 21:46] LABS: BACTERIA,URINE MODERATE /HPF; BILIRUBIN,URINE 2+ (NEGATIVE); WBC,URINE 50-100 /HPF
[2019-07-26 21:50] LABS: AMPHETAMINE SCREEN, URINE NEGATIVE (NEGATIVE); BARBITURATE SCREEN URINE NEGATIVE (NEGATIVE); BENZODIAZEPINES SCREEN URINE NEGATIVE (NEGATIVE); CANNABINOID SCREEN, URINE NEGATIVE (NEGATIVE); COCAINE SCREEN URINE NEGATIVE (NEGATIVE); METHADONE STAT NEGATIVE (NEGATIVE); METHAMPHETAMINE SCREEN URINE S NEGATIVE (NEGATIVE); OPIATE SCREEN URINE POSITIVE (NEGATIVE); OXYCODONE STAT POSITIVE (NEGATIVE); PROPOXYPHENE STAT NEGATIVE (NEGATIVE); TRICYCLIC ANTIDEPRESSANTS SCRE POSITIVE (NEGATIVE)
--- NOTE | 2019-07-26 21:57 | NUR ---
PT HAS BEEN ON BSC SINCE ARRIVAL AT 2120. TO BED AT THIS TIME. UPON TRANSFER TO BED PT BEGINS SCREAMING. THEN STATES "I CAN'T BREATHE! I CAN'T BREATHE" AND CONTINUALLY SCREAMING. BEDSIDE MONITORS APPLIED TO PT. CHRIS WITH RT AT BEDSIDE AND PT IS ON 8L O2 SATS 90-92%. DR. RAMIREZ NOTIFIED.
[2019-07-26 22:15] LABS: ABG BASE EXCESS -9.2 MMOL/L (-2.5-2.5); ABG OXYGEN SATURATION 72 % (94-100); ABG PCO2 39 MMHG (35-45); ABG PO2 48 MMHG (79-93); ABG TCO2 17.7 MMOL/L (21.0-31.0)
[2019-07-26 22:16] LABS: ABG PH 7.25 (7.37-7.43); ALLENS TEST YES-POS; INSPIRED O2 8L; PATIENT TEMP 37.1; VENTILATOR NO
[2019-07-26 22:23] LABS: BASOPHILS % (AUTO) 0 % (0-10); EOSINOPHILS % (AUTO) 0 % (0-10); HEMATOCRIT 40 % (35-52); HEMOGLOBIN 13.7 G/DL (11.5-16.0); LYMPHOCYTES # (AUTO) 0.7 X 10^3 (1.0-4.0); LYMPHOCYTES % (AUTO) 5 % (12-44); MEAN CORPUSCULAR HEMOGLOBIN 31 PG (25-34); MEAN CORPUSCULAR HGB CONC 35 G/DL (32-36); MEAN CORPUSCULAR VOLUME 89 FL (80-99); MEAN PLATELET VOLUME 10.7 FL (7.4-10.4); MONOCYTES # (AUTO) 1.2 X 10^3 (0.0-1.0); MONOCYTES % (AUTO) 10 % (0-12); NEUTROPHILS # (AUTO) 10.1 X 10^3 (1.8-7.8); NEUTROPHILS % (AUTO) 84 % (42-75); PLATELET COUNT 204 10^3/uL (130-400); RED CELL DISTRIBUTION WIDTH 15.1 % (10.0-14.5)
[2019-07-26] MEDS ORDERED: RT-ALBUTEROL SULF 2.5 MG/3 ML PRE-MIX VIAL INH STA (22:38)
[2019-07-26 22:40] LABS: ALBUMIN 3.9 GM/DL (3.2-4.5); BILIRUBIN,TOTAL 0.6 MG/DL (0.1-1.0); CALCIUM 8.6 MG/DL (8.5-10.1); CREATININE SERUM 2.28 MG/DL (0.60-1.30); MAGNESIUM 2.4 MG/DL (1.6-2.4); POTASSIUM 4.2 MMOL/L (3.6-5.0); PROTHROMBIN TIME PATIENT 14.1 SEC (12.2-14.7); TOTAL PROTEIN 6.2 GM/DL (6.4-8.2)
[2019-07-26 22:49] LABS: BAND NEUTROPHILS 7 %; LYMPHOCYTES % (MANUAL) 1 %; MONOCYTES % (MANUAL) 6 %; NEUTROPHILS % (MANUAL) 86 %; RBC MORPH NORMAL
[2019-07-26] MEDS ORDERED: CEFEPIME INJECTION 1,000 MG in WATER (STERILE) FOR INJECTION 10 ML IV ONE (23:00)
[2019-07-26 23:06] VITALS: BP 135/100
--- NOTE | 2019-07-26 23:30 | NUR ---
PT HAS BEEN RESTING QUIETLY IN BED, BIPAP IN PLACE, VSS WHEN SHE BEGINS SCREAMING UNCONTROLLABLY AND SOBBING. PT STATES, "I'M IN SO MUCH PAIN! WHY AREN'T YOU DOING ANYTHING ABOUT MY PAIN?" PT ASKED WHERE HER PAIN IS THIS IS THE FIRST TIME SHE HAS COMPLAINED OF PAIN. PT STATES, "MY BACK! MY BACK HURTS SO BAD!" AND CONTINUES TO INTERMITTENTLY SCREAM AND WAIL. DR. RAMIREZ NOTIFIED.
[2019-07-26] MEDS ORDERED: fentaNYL INJECTION 100 MCG/2 ML AMP IVP STA (23:31)
[2019-07-26 23:34] LABS: CREATINE KINASE MB 13.7 NG/ML (<6.6)
[2019-07-26 23:35] LABS: ABG BASE EXCESS -8.5 MMOL/L (-2.5-2.5); ABG OXYGEN SATURATION 71 % (94-100); ABG PCO2 33 MMHG (35-45); ABG PO2 46 MMHG (79-93); ABG TCO2 17.5 MMOL/L (21.0-31.0)
[2019-07-26 23:36] LABS: ABG PH 7.32 (7.37-7.43)
[2019-07-26 23:37] LABS: ALLENS TEST YES-POS; INSPIRED O2 50%; PATIENT TEMP 36.5; VENTILATOR NO
[2019-07-27] VITALS (30 sets, daily range): BP systolic 93–153; BP diastolic 54–112
[2019-07-27] MEDS ORDERED: ENOXAPARIN 100 MG/1 ML (LOVENOX) SYR SC ONE (00:15)
[2019-07-27] MEDS ORDERED: morphine INJ 10 MG/ML 1ML (SYR OR VIAL) IVP ONE (00:15)
--- NOTE | 2019-07-27 00:15 | NUR ---
PT RESTING QUIETLY IN BED WITH EYES CLOSED, SO RESPIRATORY DISTRESS NOTED. SON AT BEDSIDE. VSS.
--- NOTE | 2019-07-27 00:20 | NUR ---
SON PRESENTS TO ED NURSES STATION STATING HIS MOTHER IS SCREAMING. UPON ASSESSMENT OF PT SHE WAS FOUND TO BE IN BED SCREAMING AND YELLING AND WAILING. PT YELLS, "I'M IN SO MUCH PAIN!" DR. RAMIREZ NOTIFIED.
--- NOTE | 2019-07-27 00:46 | ED Respiratory ---
General Chief Complaint: Respiratory Problems Stated Complaint: COPD-ACUTE ON CHRONIC RESPIRATORY FAILURE;LUNG CA; Nursing Triage Note: Pt to ED via EMS. EMS reports pt has lung cancer and prednisone was stopped last week. Pt reports symptoms have worsened since then. Pt had to have BM immediately upon arrival to ED and was placed on bedside commode on O2. Pt pursed lipped breathing and leaning forward in tripod position. Pt denies chest pain. Source: patient (PT IS VERY HOSTILE AND DEMANDING AND UNCOOPERATIVE FROM ARRIVAL, WHILE STILL ON EMS COT. ) History of Present Illness Date Seen by Provider: Jul 26, 2019 Time Seen by Provider: 21:22 Initial Comments PT ARRIVES VIA [facility]--NO CALL PRIOR TO ARRIVAL NO IV ACCESS, AND NO TREATMENT OF ANY KIND BY EMS. PT HAS COPD AND LUNG CANCER PT C/O SHORTNESS OF BREATH--ONGOING PROBLEM, WORSE FOR SEVERAL DAYS PT IS HOME O2 DEPENDENT AT 6L/NC. HAS INHALERS AND NEBULIZER, BUT PT CANNOT STATE WHEN SHE LAST USED THEM O2 SAT 90% ON 10L/NC ON ARRIVAL BY EMS NO CHEST PAIN --DENIES ANY HISTORY OF CARDIAC PROBLEMS OR CARDIAC PROCEDURES SUCH CARDIAC CATH OR STRESS TEST C/O MID AND UPPER BACK PAIN --PT DOES HAVE CHRONIC GENERALIZED BACK PAIN NO FEVER NO COUGH PT WAS GIVEN RX FOR PREDNISONE AND BACTRIM ON 07/14/19--STATES SYMPTOMS HAVE GOTTEN WORSE PT WAS ON DOXYCYCLINE 06/16/19 AND AMOXIL 04/28--ALL FOR RESPIRATORY ILLNESSES PT IS RECEIVING IV MEDICATION / CHEMO FOR LUNG CANCER EVERY 2 WEEKS, LAST DOSE WAS APPROXIMATELY 2 WEEKS AGO--SEES DR. BAHENA. HAS HAD RADIATION WELL. SON ARRIVES AND REPORTS THAT PT WAS "BLUE" AT THE HOUSE, PRIOR TO EMS ARRIVAL PT HAS HAD THIS IN THE PAST, AND WAS AT [place] AT THAT TIME--WAS LAST YEAR SOMETIME ON ARRIVAL, DISCUSSED WITH PT HER CODE STATUS. SHE INFERS THAT SHE DOES NOT WANT TO BE ON VENTILATOR OR TO BE RESUSCITATED SON ARRIVES, AND STATES THAT WHEN SHE WAS IN [place], SHE WAS DNR/DNI ( HE USED THOSE TERMS SPECIFICALLY ). HE AND PT DISCUSSED HER STATUS AND PT AGREES THAT SHE WISHES TO BE DNR/DNI AND TO "GO PEACEFULLY" IF IT COMES TO THAT AND NOTHING ELSE CAN BE DONE. . SON STATES THAT HOSPICE HAS BEEN DISCUSSED, BUT HAS NOT BEEN INITIATED AT THIS POINT. PCP: [facility] [place]IST: DR. BAHENA ASP NET DEVELOPER: DR. ERNANDEZ Allergies and Home Medications Allergies Coded Allergies: levofloxacin (Verified Allergy, Severe, TACHYCARDIA, 11/12/18) Penicillins (Verified Allergy, Unknown, FAMILY ALLERGY, 11/12/18) Uncoded Allergies: SURGICAL STEEL (Allergy, Intermediate, RASH, 05/10/18) Home Medications Albuterol Sulfate 1 Puff Puff, 2 PUFF IH BID PRN, (Reported) 1 PUFF = 90 MCG Cetirizine HCl 10 Mg Tablet, 10 MG PO DAILY, (Reported) Cholecalciferol (Vitamin D3) 2,000 Unit Capsule, 2,000 UNIT PO DAILY, (Reported) Diltiazem HCl 240 Mg Tab.er.24h, 240 MG PO DAILY, (Reported) Lutein 10 Mg Tablet, 10 MG PO DAILY, (Reported) Metoprolol Tartrate 25 Mg Tablet, 25 MG PO DAILY, (Reported) Mometasone/Formoterol 13 Gm Hfa.aer.ad, 2 PUFF IH BID, (Reported) Montelukast Sodium 10 Mg Tablet, 10 MG PO DAILY, (Reported) Multivitamin 1 Each Tablet, 1 EACH PO DAILY, (Reported) Potassium Gluconate 99 Mg Tablet, 99 MG PO BID, (Reported) Prednisone 10 Mg Tab.ds.pk, 10 MG PO DAILY, (Reported) Take 6 tabs(60mg)daily,decrease by 1 tab(10MG)daily. Tiotropium [place] 1 Inh Aerp, 1 INH IH DAILY, (Reported) Patient Home Medication List Home Medication List Reviewed: Yes Review of Systems Review of Systems Constitutional: No fever; other (PT IS A VERY LIMITED HISTORIAN) Respiratory: see HPI, short of breath Cardiovascular: No chest pain; edema (CHRONIC) Musculoskeletal: see HPI, back pain Past Pmhoskf-Rmiaiu-Zjeozi Hx Past Med/Social Hx: Reviewed and Corrections made Patient Social History Alcohol Use: Occasionally Uses Recreational Drug Use: No Smoking Status: Former Smoker (1 10/20 PPD, BEGAN AT AGE 15, QUIT AT AGE 43) Type Used: Cigarettes Former Smoker, Quit: Oct 19, 1992 Recent Foreign Travel: No Contact w/Someone Who Travel: No Recent Infectious Disease Expo: No Recent Hopitalizations: No Physical Abuse: No Sexual Abuse: No Immunizations Up To Date Tetanus Booster (TDap): Unknown Date of Pneumonia Vaccine: Jul 26, 2018 Date of Influenza Vaccine: Jul 26, 2018 Seasonal Allergies Seasonal Allergies: Yes Past Medical History Surgeries: Yes (ANTERIOR REPAIR, POWER PORT PLACEMENT LEFT CHEST; BRONCHOSCOPY; REMOVAL OF BENIGN MASS FROM LEFT 4TH FINGER--BENIGN VARIX WITH THROMBUS 10/2018) Bladder Surgery, Gallbladder, Hysterectomy Respiratory: Yes (RT LUNG MASS/LUNG CANCER, O2 6L) Pneumonia, Chronic Bronchitis, COPD Currently Using CPAP: No Currently Using BIPAP: No Cardiac: Yes Chronic Edema/Swelling, Hypertension Neurological: No 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 Disorders: No Female 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 Disorders: Denies TEST 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 History: Hysterectomy, Menopausal Sexually Transmitted Disease: No HIV/AIDS: No Genitourinary: No Gastrointestinal: No Musculoskeletal: Yes Arthritis, Chronic Back Pain Endocrine: Yes (THYROID ISSUES--ON METHIMAZOLE) HEENT: Yes (GLASSES) Loss of Vision: Bilateral Hearing Impairment: Denies Cancer: Yes Lung Did You Recieve Any Treatments: Yes What Type of Treatment Did You: Chemotherapy, Radiation Psychosocial: Yes (RELATED TO MEDICAL ISSUES) Anxiety Integumentary: No Blood Disorders: No Adverse Reaction/Blood Tranf: No (N/A) Physical Exam Vital Signs - First Documented 07/26/19 07/26/19 21:25 23:38 Temp 36.5 Pulse 140 Resp 25 B/P (MAP) 149/111 Pulse Ox 95 O2 Delivery Nasal Cannula O2 Flow Rate 10.00 Capillary Refill : Less Than 3 Seconds Height: 5'5.00" Weight: 200lbs. 0.8oz. [id number]; 32.00 BMI Method: General Appearance: other (ON ARRIVAL, PT MAKING MULTIPLE DEMANDS, IS VERY HOSTILE AND UNCOOPERATIVE. PT IS MILDLY DYSPNEIC ON ARRIVAL. WHILE PT IS ON EMS COT, SHE REFUSES TO GET OFF THEIR CART UNTIL SHE GOES TO THE BATHROOM. PT IS TALKING/YELLING CONTINOUSLY NON-STOP. COMMODE BROUGHT INTO ROOM, AND PATIENT ASSISTED TO COMMODE. PT VOIDS THEN REFUSES TO GET OFF COMMODE NOW SHE ALSO HAS TO HAVE A BM. PT ADAMANTLY REFUSES TO ALLOW ANY ONE TO DO ANYTHING UNTIL SHE HAS FINISHED USING THE COMMODE. PT IS INCREASINGLY BECOMING MORE HOSTILE AND YELLING/SCREAMING CONTINUOUSLY AND BECOMING MORE DYSPNEIC. ) Respiratory: respiratory distress (MODERATE DISTRESS, BREATHING IS VERY LABORED, YET PT CONTINUES TO TALK NON-STOP. ), decreased breath sounds (MINIMAL AERATION IN ALL LUNG ONEIL) Cardiovascular: no murmur Gastrointestinal: soft Extremities: normal range of motion, no calf tenderness, normal capillary refill, pedal edema (1+ BILATERALLY) Neurologic/Psychiatric: development lead II-XII nml as tested, no motor/sensory deficits, alert, oriented x 3 Skin: normal color, warm/dry; No cyanosis, No diaphoresis, No damp, No pallor Focused Exam Lactate Level 07/26/19 22:08: Lactic Acid Level 3.58*H Lactic Acid Level Laboratory Tests Test 07/26/19 22:08 Lactic Acid Level 3.58 MMOL/L (0.50-2.00) *H Progress/Results/Core Measures Suspected Sepsis Recent Fever Within 48 Hours: No Infection Criteria Present: None New/Unexplained Altered Menta: No Sepsis Screen: No Definite Risk SIRS Temperature: Pulse: 137 Respiratory Rate: 23 Laboratory Tests 07/26/19 22:08: White Blood Count 12.0H Blood Pressure 135 /100 Mean: 07/26/19 22:08: Lactic Acid Level 3.58*H Laboratory Tests 07/26/19 22:08: Creatinine 2.28H, INR Comment 1.0, Platelet Count 204, Total Bilirubin 0.6 Results/Orders Lab Results Laboratory Tests Test 07/26/19 21:28 07/26/19 22:02 07/26/19 22:08 07/26/19 23:25 Range/Units Urine Color BROWN H Urine Clarity SLIGHTLY CLOUDY Urine pH 5 5-9 Urine Specific [place] 1.020 1.016-1.022 Urine Protein 2+ H NEGATIVE Urine Glucose (UA) 3+ H NEGATIVE Urine Ketones 1+ H NEGATIVE Urine Nitrite NEGATIVE NEGATIVE Urine Bilirubin 2+ H NEGATIVE Urine Urobilinogen 4 H NORMAL MG/DL Urine Leukocyte Esterase 2+ H NEGATIVE Urine RBC (Auto) 3+ H NEGATIVE Urine RBC 10-25 H /HPF Urine WBC 50-100 H /HPF Urine Squamous Epithelial Cells 5-10 /HPF Urine Crystals NONE /LPF Urine Bacteria MODERATE H /HPF Urine Casts NONE /LPF Urine Mucus NEGATIVE /LPF Urine Culture Indicated YES Urine Opiates Screen POSITIVE H NEGATIVE Urine Oxycodone Screen POSITIVE H NEGATIVE Urine Methadone Screen NEGATIVE NEGATIVE Urine Propoxyphene Screen NEGATIVE NEGATIVE Urine Barbiturates Screen NEGATIVE NEGATIVE Ur Tricyclic Antidepressants Screen POSITIVE H NEGATIVE Urine Phencyclidine Screen NEGATIVE NEGATIVE Urine Amphetamines Screen NEGATIVE NEGATIVE Urine Methamphetamines Screen NEGATIVE NEGATIVE Urine Benzodiazepines Screen NEGATIVE NEGATIVE Urine Cocaine Screen NEGATIVE NEGATIVE Urine Cannabinoids Screen NEGATIVE NEGATIVE Blood Gas Puncture Site RIGHT RADIAL RIGHT RADIAL Blood Gas Patient Temperature 37.1 36.5 Arterial Blood pH 7.25 *L 7.32 *L 7.37-7.43 Arterial Blood Partial Pressure CO2 39 33 L 35-45 MMHG Arterial Blood Partial Pressure O2 48 L 46 L 79-93 MMHG Arterial Blood HCO3 17 *L 17 *L 23-27 MMOL/L Arterial Blood Total CO2 17.7 L 17.5 L 21.0-31.0 MMOL/L Arterial Blood Oxygen Saturation 72 L 71 L 94-100 % Arterial Blood Base Excess -9.2 L -8.5 L -2.5-2.5 MMOL/L Radames Test YES-POS YES-POS Blood Gas Ventilator Setting NO NO Blood Gas Inspired Oxygen 8L 50% White Blood Count 12.0 H 4.3-11.0 10^3/uL Red Blood Count 4.44 4.35-5.85 10^6/uL Hemoglobin 13.7 11.5-16.0 G/DL Hematocrit 40 35-52 % Mean Corpuscular Volume 89 80-99 FL Mean Corpuscular Hemoglobin 31 25-34 PG Mean Corpuscular Hemoglobin Concent 35 32-36 G/DL Red Cell Distribution Width 15.1 H 10.0-14.5 % Platelet Count 204 130-400 10^3/uL Mean Platelet Volume 10.7 H 7.4-10.4 FL Neutrophils (%) (Auto) 84 H 42-75 % Lymphocytes (%) (Auto) 5 L 12-44 % Monocytes (%) (Auto) 10 0-12 % Eosinophils (%) (Auto) 0 0-10 % Basophils (%) (Auto) 0 0-10 % Neutrophils # (Auto) 10.1 H 1.8-7.8 X 10^3 Lymphocytes # (Auto) 0.7 L 1.0-4.0 X 10^3 Monocytes # (Auto) 1.2 H 0.0-1.0 X 10^3 Eosinophils # (Auto) 0.0 0.0-0.3 10^3/uL Basophils # (Auto) 0.0 0.0-0.1 10^3/uL Neutrophils % (Manual) 86 % Lymphocytes % (Manual) 1 % Monocytes % (Manual) 6 % Band Neutrophils 7 % Blood Morphology Comment NORMAL Prothrombin Time 14.1 12.2-14.7 SEC INR Comment 1.0 0.8-1.4 Activated Partial Thromboplast Time 22 L 24-35 SEC Sodium Level 129 L 135-145 MMOL/L Potassium Level 4.2 3.6-5.0 MMOL/L Chloride Level 96 L 98-107 MMOL/L Carbon Dioxide Level 15 L 21-32 MMOL/L Anion Gap 18 H 5-14 MMOL/L Blood Urea Nitrogen 56 H 7-18 MG/DL Creatinine 2.28 H 0.60-1.30 MG/DL Estimat Glomerular Filtration Rate 21 BUN/Creatinine Ratio 25 Glucose Level 357 H 70-105 MG/DL Lactic Acid Level 3.58 *H 0.50-2.00 MMOL/L Calcium Level 8.6 8.5-10.1 MG/DL Corrected Calcium 8.7 8.5-10.1 MG/DL Magnesium Level 2.4 1.6-2.4 MG/DL Total Bilirubin 0.6 0.1-1.0 MG/DL Aspartate Amino Transf (AST/SGOT) 51 H 5-34 U/L Alanine Aminotransferase (ALT/SGPT) 174 H 0-55 U/L Alkaline Phosphatase 125 40-136 U/L Total Creatine Kinase 378 H 29-168 U/L Creatine Kinase MB 13.7 *H <6.6 NG/ML Myoglobin 1301.9 H 10.0-92.0 NG/ML Troponin I 0.031 H <0.028 NG/ML B-Type Natriuretic Peptide 121.1 H <100.0 PG/ML Total Protein 6.2 L 6.4-8.2 GM/DL Albumin 3.9 3.2-4.5 GM/DL Micro Results Microbiology 07/26/19 Influenza Types A,B Antigen (OSVALDO) - Final, Complete My Orders Orders - JAYA RAMIREZ DO Ed Iv/Invasive Line Start (07/26/19 21:26) Ekg Tracing (07/26/19 21:26) O2 (07/26/19 21:26) Monitor-Rhythm Ecg Trace Only (07/26/19 21:26) Chest 1 View, Ap/Pa Only (07/26/19 21:26) BNP (07/26/19 21:26) Cbc With Automated Diff (07/26/19:) Comprehensive Metabolic Panel (07/26/19) Creatine Kinase (07/26/19:) Creatine Kinase Mb (07/26/19) Drug Screen Stat (Urine) (07/26/19:) Lactic Acid Analyzer (07/26/19:) Magnesium (07/26/19:) Protime With Inr (07/26/19) Partial Thromboplastin Time (07/26/19:) Ua Culture If Indicated (07/26/19:) Blood Culture (07/26/19) Influenza A And B Antigens (07/26/19) Myoglobin Serum (07/26/19) Troponin I (07/26/19) Albuterol/Ipra Inhalation Soln (Duoneb I (07/26/19:30) Dexamethasone Injection (Decadron Inject (07/26/19:30) Rt Request For Service (07/26/19:) Methylprednisolone Sod Succ (Solu-Medrol (07/26/19:) Svn Small Volume Nebulizer (07/26/19:) Urine Culture (07/26/19:28) Arterial Blood Gas (07/26/19 22:05) Catheter(Urinary) Insert & Ass 03,15 (07/26/19 22:05) Arterial Blood Gas (07/26/19 22:09) Manual Differential (07/26/19 22:08) Albuterol Pre-Mix Nebs (Rt) (Proventil (07/26/19 22:38) Svn Small Volume Nebulizer (07/26/19 22:38) Cefepime Injection (Maxipime Injection) (07/26/19 23:00) Ekg Tracing (07/26/19 23:27) Arterial Blood Gas (07/26/19 23:27) Fentanyl Injection (Sublimaze Injection (07/26/19 23:31) Medications Given in ED Current Medications Medications Dose Ordered Sig/Cresencio Route Start Time Stop Time Status Last Admin Dose Admin Albuterol/ Ipratropium 3 ml ONCE ONCE INH 07/26/19 21:30 07/26/19 21:31 DC 07/26/19 21:45 3 ML Cefepime HCl 1000 mg/Sterile Water 10 ml @ 200 mls/hr ONCE ONCE IV 07/26/19 23:00 07/26/19 23:02 DC 07/26/19 23:39 200 MLS/HR Dexamethasone Sodium Phosphate 20 mg ONCE ONCE IH 07/26/19 21:30 07/26/19 21:31 DC 07/26/19 21:45 20 MG Vital Signs/I&O 07/26/19 07/26/19 07/26/19 07/26/19 21:25 21:25 21:45 23:06 Temp 36.5 Pulse 140 137 Resp 25 23 B/P (MAP) Pulse Ox 95 93 98 O2 Delivery Nasal Cannula Nasal Cannula Nasal Cannula O2 Flow Rate 10.00 10.00 8.00 50.00 07/26/19 23:38 Temp 36.5 Pulse 135 Resp 22 B/P (MAP) 149/111 Pulse Ox 99 O2 Delivery NIV Bilevel Capillary Refill : Less Than 3 Seconds Progress Note : Progress Note 2138--PT STILL ON COMMODE, REFUSING ANY CARE AT THIS TIME 2150--PT STILL ON COMMODE, AND REFUSING ANY CARE AT THIS TIME. IS BEING VERY UNCOOPERATIVE. REFUSING TO ANSWER ANY QUESTIONS/PROVIDE ANY HISTORY, ETC. YET TALKING AND YELLING NON-STOP AT STAFF. PT NOW HAVING BM 2200--ADVISED PT THAT SHE CANNOT SIT ON THE COMMODE ANY LONGER AND THAT WE NEED TO BEGIN OUR CARE, PT IS NOW SIGNIFICANTLY DYSPNEIC, TACHYCARDIC IN 150'S, EXTREMELY ANXIOUS AND CONSTANTLY MOVING, YET REFUSES TO QUIT TALKING AND CO NTINUES TO TALK NON-STOP. PT DOES NOT APPEAR TO BE CONFUSED. NO DIAPHORESIS PT C/O MID BACK PAIN NO CHEST PAIN AT ANY TIME. PT GIVEN HOUR LONG NEB TREATMENT AND PLACED ON BIPAP, WITH IMPROVEMENT IN LUNG SOUNDS, WITH INCREASED AERATION AND BREATHING IS MUCH LESS LABORED. PT IS MUCH CALMER, YET STILL TALKING NON-STOP. PT GIVEN STEROIDS, PAIN MEDICATION FOR BACK PAIN, AND ATIVAN. PT ALSO GIVEN LOVENOX. VITALS STABLE AT TIME OF ADMIT ALL SYMPTOMS IMPROVED AT TIME OF ADMIT. ECG Initial ECG Impression Date: Jul 26, 2019 Initial ECG Impression Time: 22:25 Initial ECG Rate: 135 Initial ECG Rhythm: S.Tach Initial ECG Impression: Nonspecific Changes EKG : EKG Time: 23:33 Rate: 133 Rhythm: S.Tach ECG Comparisson: Unchanged Diagnostic Imaging Comments CXR---RLL DENSITY--INFILTRATE AND / OR MASS. ALSO HAS INFILTRATE/ATELECTASIS IN LLL--PENDING RADIOLOGIST REVIEW. LAST CXR DONE HERE WAS IN 2018--DENSITY IN RLL HAS INCREASED IN SIZE COMPARED TO 2018 Reviewed: Reviewed by Me Departure Communication (Admissions) [id number]--SPOKE WITH DR. HEIN, HOSPITALIST FOR [facility]. ACCEPTS PT FOR ADMIT. WILL CONSULT ONCOLOGY, CARDIOLOGY, PULMONOLOGY AND E-ICU 3--SPOKE WITH DR. EISENBERG, ADVISES TO START PT ON LOVENOX Impression Primary Impression: Acute on chronic respiratory failure Additional Impressions: LUNG CANCER ON CHEMOTHERAPY Elevated troponin Acute renal failure ELECTROLYTE IMBALANCE WITH HYPONATREMIA EELVATED LIVER ENZYMES Elevation of cardiac enzymes UTI (urinary tract infection) Acidosis UNCONTROLLED NIDDM Uncontrolled hypertension Anxiety Sinus tachycardia Disposition: ADMITTED INPATIENT Condition: Improved Admissions Decision to Admit Reason: Admit from ER (General) Decision to Admit/Date: Jul 26, 2019 Time/Decision to Admit Time: 23:40 Departure-Patient Inst. [facility] Primary Care Physician JAMES SIFUENTES APRN (Family) Primary Care Physician JAYA RAMIREZ DO Jul 27, 2019 00:46
[2019-07-27] MEDS ORDERED: NS IV 1000 ML 1,000 ML ONE (01:14)
[2019-07-27] MEDS: NS IV 1000 ML 1,000 ML IV SCH ×2 (01:15→15:41)
[2019-07-27] MEDS ORDERED: ACETAMINOPHEN 500 MG TAB (TYLENOL) PO PRN (03:45)
[2019-07-27] MEDS ORDERED: ONDANSETRON 4 MG/2 ML (SDV) Z0FRAN IV PRN (03:45)
[2019-07-27] MEDS ORDERED: IBUPROFEN 800 MG (MOTRIN) TAB PO PRN (03:45)
[2019-07-27] MEDS ORDERED: NITROGLYCERIN 0.4 MG SL TABS BTL 25'S SL PRN (03:45)
[2019-07-27] MEDS ORDERED: LORazepam INJ 2 MG/ML (ATIVAN) VIAL IV PRN (03:45)
[2019-07-27 03:48] LABS: BASOPHILS % (AUTO) 0 % (0-10); EOSINOPHILS % (AUTO) 0 % (0-10); HEMATOCRIT 37 % (35-52); HEMOGLOBIN 12.9 G/DL (11.5-16.0); LYMPHOCYTES # (AUTO) 0.1 X 10^3 (1.0-4.0); LYMPHOCYTES % (AUTO) 1 % (12-44); MEAN CORPUSCULAR HEMOGLOBIN 31 PG (25-34); MEAN CORPUSCULAR HGB CONC 35 G/DL (32-36); MEAN CORPUSCULAR VOLUME 90 FL (80-99); MONOCYTES # (AUTO) 0.6 X 10^3 (0.0-1.0); MONOCYTES % (AUTO) 7 % (0-12); NEUTROPHILS % (AUTO) 92 % (42-75); PLATELET COUNT 166 10^3/uL (130-400); WHITE BLOOD COUNT 9.8 10^3/uL (4.3-11.0)
[2019-07-27] MEDS ORDERED: GENTAMICIN 100 MG/NS 100 ML IVPB IV ONE ×2 (04:00)
[2019-07-27] MEDS ORDERED: morphine INJ 4 MG/ML 1 ML (VIAL/SYRINGE) IV PRN (04:00)
[2019-07-27] MEDS ORDERED: AZITHROMYCIN INJECTION 500 MG in NS (IVPB) 250 ML IV SCH (04:00)
[2019-07-27 04:08] LABS: ALBUMIN 3.6 GM/DL (3.2-4.5); BILIRUBIN,TOTAL 0.5 MG/DL (0.1-1.0); CALCIUM 7.9 MG/DL (8.5-10.1); CREATININE SERUM 2.01 MG/DL (0.60-1.30); MAGNESIUM 2.5 MG/DL (1.6-2.4); PHOSPHORUS 5.5 MG/DL (2.3-4.7); POTASSIUM 4.2 MMOL/L (3.6-5.0); TOTAL PROTEIN 5.7 GM/DL (6.4-8.2)
--- NOTE | 2019-07-27 04:15 | Pulmonary Consultation ---
History of Present Illness History of Present Illness Date of Consultation 07/27/19 04:09 Time Seen by Provider: 04:09 Date of Admission History of Present Illness 69yo with hx lung cancer, COPD presented to ED secondary to worsening SOB and respiratory failure. While in the ED she had pursed lipped breathing while in tripod position. Pt is currently on BiPAP. Unable to obtain ROS currently. I am consulted for pulmonary/ICU management. Allergies and Home Medications Allergies Coded Allergies: levofloxacin (Verified Allergy, Severe, TACHYCARDIA, 11/12/18) Penicillins (Verified Allergy, Unknown, FAMILY ALLERGY, 11/12/18) Uncoded Allergies: SURGICAL STEEL (Allergy, Intermediate, RASH, 05/10/18) Home Medications Albuterol Sulfate 1 Puff Puff, 2 PUFF IH BID PRN, (Reported) 1 PUFF = 90 MCG Cetirizine HCl 10 Mg Tablet, 10 MG PO DAILY, (Reported) Cholecalciferol (Vitamin D3) 2,000 Unit Capsule, 2,000 UNIT PO DAILY, (Reported) Diltiazem HCl 240 Mg Tab.er.24h, 240 MG PO DAILY, (Reported) Lutein 10 Mg Tablet, 10 MG PO DAILY, (Reported) Metoprolol Tartrate 25 Mg Tablet, 25 MG PO DAILY, (Reported) Mometasone/Formoterol 13 Gm Hfa.aer.ad, 2 PUFF IH BID, (Reported) Montelukast Sodium 10 Mg Tablet, 10 MG PO DAILY, (Reported) Multivitamin 1 Each Tablet, 1 EACH PO DAILY, (Reported) Potassium Gluconate 99 Mg Tablet, 99 MG PO BID, (Reported) Prednisone 10 Mg Tab.ds.pk, 10 MG PO DAILY, (Reported) Take 6 tabs(60mg)daily,decrease by 1 tab(10MG)daily. Tiotropium [place] 1 Inh Aerp, 1 INH IH DAILY, (Reported) Past Vveanau-Zowrgc-Kvkbcd Hx Patient Social History Alcohol Use: Occasionally Uses Recreational Drug Use: No Smoking Status: Former Smoker Type Used: Cigarettes Former Smoker, Quit: Oct 19, 1990 Recent Foreign Travel: No Contact w/Someone Who Travel: No Recent Infectious Disease Expo: No Recent Hopitalizations: No Physical Abuse: No Sexual Abuse: No Immunizations Up To Date Tetanus Booster (TDap): Unknown Date of Pneumonia Vaccine: Jul 26, 2018 Date of Influenza Vaccine: Jul 26, 2018 Seasonal Allergies Seasonal Allergies: Yes Past Medical History Surgeries: Yes (ANTERIOR REPAIR, POWER PORT PLACEMENT) Gallbladder, Hysterectomy Respiratory: Yes (RT LUNG MASS/lung cancer, O2 6L) Pneumonia, Chronic Bronchitis, COPD Currently Using CPAP: No Currently Using BIPAP: No Cardiac: Yes Hypertension Neurological: No 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 Disorders: No Female 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 Disorders: Denies 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 0.8oz. 90.468720nu; 32.00 BMI Method: Exam Exam Vital Signs Date Time Temp Pulse Resp B/P (MAP) Pulse Ox O2 Delivery O2 Flow Rate FiO2 07/27/19 04:00 123 15 97 25.00 07/27/19 03:37 36.5 140 99 45 07/27/19 03:00 123 13 126/80 (95) 97 NIV Bilevel 30.00 07/27/19 02:20 128 22 130/90 (103) 99 NIV Bilevel 30.00 07/27/19 02:00 125 14 121/90 (100) 98 NIV Bilevel 35.00 07/27/19 01:45 133 30 107/93 (98) 99 NIV Bilevel 35.00 07/27/19 01:30 130 21 131/96 (108) 100 NIV Bilevel 35.00 07/27/19 01:23 133 07/27/19 01:20 136 23 99/78 (85) 100 NIV Bilevel 35.00 07/27/19 01:07 132 18 143/83 (103) 100 NIV Bilevel 35.00 07/27/19 01:00 36.5 130 20 127/106 (124) 100 NIV Bilevel 07/26/19 23:38 36.5 135 22 149/111 99 NIV Bilevel 07/26/19 23:06 137 23 98 50.00 07/26/19 21:45 93 Nasal Cannula 8.00 07/26/19 21:25 36.5 140 25 95 Nasal Cannula 10.00 07/26/19 21:25 Nasal Cannula 10.00 I & O 07/27/19 06:59 Intake Total 10 ml Balance 10 ml Height & Weight Height: 5'5.00" Weight: 200lbs. 0.8oz. [id number]; 32.00 BMI Method: General Appearance: WD/WN, Chronically ill, Mild Distress HEENT: PERRL/EOMI, TMs Normal Neck: Full Range of Motion, Normal Inspection Respiratory: Chest Non Tender, Decreased Breath Sounds Cardiovascular: Regular Rate, Rhythm, No Edema Capillary Refill: Less Than 3 Seconds Gastrointestinal: non tender, soft Extremity: Normal Capillary Refill, Normal Inspection, No Pedal Edema Neurologic/Psychiatric: Alert, Oriented x3 Skin: Normal Color, Warm/Dry Lymphatic: No Adenopathy Results Lab Laboratory Tests 07/26/19 22:08 07/27/19 03:20 Assessment/Plan Assessment/Plan COPDAE -Duoneb Q4 -Add advair Dehydration -NS 100cc/hr -Will give a liter bolus over 2 hours over 2 hours Metabolic acidosis -IVF Acute renal failure -IVF Hypermag/Hyperphos -Monitor KARIME ERNANDEZ DO Jul 27, 2019 04:15
[2019-07-27 04:21] LABS: ABG BASE EXCESS -10.5 MMOL/L (-2.5-2.5); ABG OXYGEN SATURATION 97 % (94-100); ABG PCO2 27 MMHG (35-45); ABG PO2 87 MMHG (79-93); ABG TCO2 15.2 MMOL/L (21.0-31.0)
[2019-07-27 04:24] LABS: CARDIAC PROFILE 2 < 0.028 NG/ML (<0.028)
[2019-07-27 04:27] LABS: ABG PH 7.34 (7.37-7.43)
[2019-07-27 04:28] LABS: ALLENS TEST YES-POS; INSPIRED O2 25%; PATIENT TEMP 35.8; VENTILATOR NO
[2019-07-27] MEDS ORDERED: SODIUM BICARB 8.4% 50 MEQ/50 ML VIAL IV ONE (04:30)
[2019-07-27] MEDS ORDERED: NS IV 1000 ML 1,000 ML IV SCH ×2 (04:30→09:45)
[2019-07-27] MEDS ORDERED: methylPREDNISolone 125 MG (Solu-MEDROL) VIAL IVP SCH ×2 (06:00)
[2019-07-27] MEDS: RT-ALBUTEROL/IPRATROPIUM 3 ML (DUONEB) VIAL INH SCH ×5 (06:38→22:23)
[2019-07-27] MEDS: risperiDONE 1 MG (RisperDAL) TAB PO SCH ×2 (07:53→21:00)
[2019-07-27] MEDS: ASPIRIN E.C. 81 MG (ECOTRIN) TAB PO SCH (07:53)
--- NOTE | 2019-07-27 08:23 | NUR ---
D/C GENTAMICIN T.O DR ERNANDEZ (ORDER WAS WRITTEN ON PNA ORDER SET), RECEIVED 100MG THIS AM
--- NOTE | 2019-07-27 08:35 | Diagnostic Imaging Report ---
Portable erect AP chest at 10:18 PM INDICATION: Shortness of breath The recent CT chest exam performed on 06/30/2019 noted a 3.8 x 2.5 cm parenchymal density along the posterior medial aspect of the right lower lobe. This finding seems stable when compared to the prior CT chest exam of 04/07/2019. On this exam there is again an abnormal density in this region. I suspect that this corresponds to the finding on the CT exam. The lungs are otherwise clear. The heart is stable. The mediastinum is not wide. The osseous structures are intact. Healed rib fractures are again seen on the right. The left-sided Port-A-Cath seen previously is again evident and no different. IMPRESSION: 1. There is a persistent abnormal density in the posterior medial aspect of the right lung base. When compared to the prior study there does not seem to have been any significant change. No new abnormality has developed. 2. Reportedly, CT of the chest is pending for further evaluation. Dictated by: Dictated on workstation # [id number]
[2019-07-27] MEDS ORDERED: FLUT16SP22 NS (08:47)
[2019-07-27] MEDS ORDERED: METH5TAB5 PO (08:47)
[2019-07-27] MEDS ORDERED: DILT240C PO (08:47)
[2019-07-27] MEDS ORDERED: ALBU18HF2 INH (08:47)
[2019-07-27] MEDS ORDERED: METF-397 PO (08:47)
--- NOTE | 2019-07-27 08:59 | NUR ---
SPOKE WITH THE PATIENT ABOUT HER MEDICATIONS. SHE STATES SHE HAS A FOLDER WITH HER LIST IN IT HOWEVER IT WAS NOT IN HER BELONGINGS. SHE STATES SHE GETS EVERYTHING FILLED AT [facility] [employer] AND DOES NOT RECEIVE SAMPLES OR MEDS FROM ANY OTHER LOCATION. WE WENT OVER THE EXT MED HX AND SHE VERIFIED HOW SHE TAKES THEM. HER METFORMIN WAS FILLED 500MG #90 FOR 23 DAY SUPPLY WITH DIRECTIONS TO TAKE 1 TAB BID FOR 1 WEEK THEN 2 TABS BID. SHE STATES SHE IS ONLY TAKING 1 TAB BID. SHE TAKES THE FOLLOWING OTC: ZYRTEC DAILY VITAMIN D DAILY LUTEIN DAILY MTV DAILY Addendum: 07/27/19 at 1031 by MUNIRA BURCH [facility] SHE STATES SHE HAS ALREADY COMPLETED THE PREDNISONE AND ANTIBIOTICS THAT WERE FILLED THE END OF AND IS NO LONGER TAKING PREDNISONE.
--- NOTE | 2019-07-27 09:01 | NUR ---
PT HR suddenly increased to 190-200s. Dr. Arevalo called. Order for cardizem bolus et gtt received.
[2019-07-27] MEDS ORDERED: DILTIAZEM 25 MG/5 ML INJ (CARDIZEM) VIAL ONE (09:03)
[2019-07-27] MEDS ORDERED: DILTIAZEM 125 MG/25 ML IV (CARDIZEM) IV ONE ×2 (09:03)
[2019-07-27] MEDS ORDERED: NS (IVPB) 100 ML ONE (09:04)
[2019-07-27] MEDS ORDERED: DILTIAZEM IV FOR DRIP 125 MG in NS (IVPB) 100 ML IV SCH (09:15)
[2019-07-27] MEDS ORDERED: DILTIAZEM 25 MG/5 ML INJ (CARDIZEM) VIAL IVP NR (09:15)
--- NOTE | 2019-07-27 09:18 | Diagnostic Imaging Report ---
INDICATION: Dyspnea. TIME OF EXAM: 4:00 a.m. Correlation is made with prior chest from 07/26/2019. FINDINGS: The heart size is stable. There is some infiltrate or atelectasis in the right base. Emphysematous changes in the upper lung bolanos again noted. No effusion or pneumothorax is seen. Left-sided line appears to overlie the left innominate and SVC confluence. IMPRESSION: Right basilar subsegmental atelectasis or infiltrate, similar to prior exam. Dictated by: Dictated on workstation # [id number]
[2019-07-27] MEDS ORDERED: DIGOXIN 0.25 MG/ML (LANOXIN) 2 ML AMP ONE (09:35)
--- NOTE | 2019-07-27 09:40 | NUR ---
Dr. Arevalo notified HR remains elevated et BP decreased to SBP 90. Order for 0.5mg digoxin et 1L NS bolus.
[2019-07-27] MEDS ORDERED: DIGOXIN 0.25 MG/ML (LANOXIN) 2 ML AMP IV ONE (09:45)
--- NOTE | 2019-07-27 09:47 | Consultation-Cardiology ---
HPI-Cardiology Cardiology Consultation Date of Consultation 07/27/19 Date of Admission Time Seen by Provider: 09:42 Indication: Afib with RVR HPI Patient is a 69 y/o female with history of lung CA, COPD, questionable hx of atrial fibrillation, presented to the ER last night with dyspnea, respiratory failure. Found to be in afib with RVR. Was given lovenox, started on Cardizem gt t. Patient is somewhat poor historian, most of PMH from review of chart. Upon interviewing patient she was noted to have HR in the 180s. Denies any chest pain, continues to complain of dyspnea. Denies any dizziness or lightheadedness. Currently no other complaints at this time. Home Medications & Allergies Allergies: Coded Allergies: levofloxacin (Verified Allergy, Severe, TACHYCARDIA, 11/12/18) Penicillins (Verified Allergy, Unknown, FAMILY ALLERGY, 11/12/18) Uncoded Allergies: SURGICAL STEEL (Allergy, Intermediate, RASH, 05/10/18) Home Medication List Reviewed: Yes OHL-Qyazyo-Mcmwiu Hx Patient Social History Marital Status: Employed/Student: retired Alcohol Use: Occasionally Uses Recreational Drug Use: No Smoking Status: Former Smoker (1 10/20 PPD, BEGAN AT AGE 15, QUIT AT AGE 43) Type Used: Cigarettes Recent Foreign Travel: No Recent Infectious Disease Expo: No Recent Hopitalizations: No Immunizations Up To Date Tetanus Booster (TDap): Unknown Date of Pneumonia Vaccine: Jul 26, 2018 Date of Influenza Vaccine: Jul 26, 2018 Past Medical History COPD, lung CA, questionable AFib, Obesity, extobaccoism Family Medical History Significant Family History: No Pertinent Family Hx Review of Systems-General Review of Systems Constitutional: No chills, No diaphoresis, No fever; malaise, weakness, other (PT IS A VERY LIMITED HISTORIAN) EENTM: No blurred vision, No double vision, No vision loss, No epistaxis Respiratory: see HPI; No cough; dyspnea on exertion, orthopnea, short of breath; No wheezing Cardiovascular: No chest pain; edema (CHRONIC); No palpitations, No syncope, No vascular heart diseas Gastrointestinal: No abdominal pain, No constipation, No diarrhea Genitourinary: No dysuria, No frequency Musculoskeletal: see HPI, back pain Skin: No lesions, No rash Psychiatric/Neurological: Denies Emotional Problems Reviewed Test Results Reviewed Test Results Lab Laboratory Tests 07/26/19 21:28: Urine Color BROWNH, Urine Clarity SLIGHTLY CLOUDY, Urine pH 5, Urine Specific [place] 1.020, Urine Protein 2+H, Urine Glucose (UA) 3+H, Urine Ketones 1+H, Urine Nitrite NEGATIVE, Urine Bilirubin 2+H, Urine Urobilinogen 4H, Urine Leukocyte Esterase 2+H, Urine RBC (Auto) 3+H, Urine RBC 10-25H, Urine WBC 50- 100H, Urine Squamous Epithelial Cells 5-10, Urine Crystals NONE, Urine Bacteria MODERATEH, Urine Casts NONE, Urine Mucus NEGATIVE, Urine Culture Indicated YES, Urine Opiates Screen POSITIVEH, Urine Oxycodone Screen POSITIVEH, Urine Methadone Screen NEGATIVE, Urine Propoxyphene Screen NEGATIVE, Urine Barbiturates Screen NEGATIVE, Ur Tricyclic Antidepressants Screen POSITIVEH, Urine Phencyclidine Screen NEGATIVE, Urine Amphetamines Screen NEGATIVE, Urine Methamphetamines Screen NEGATIVE, Urine Benzodiazepines Screen NEGATIVE, Urine Cocaine Screen NEGATIVE, Urine Cannabinoids Screen NEGATIVE 07/26/19 22:02: Blood Gas Puncture Site RIGHT RADIAL, Blood Gas Patient Temperature 37.1, Arterial Blood pH 7.25*L, Arterial Blood Partial Pressure CO2 39, Arterial Blood Partial Pressure O2 48L, Arterial Blood HCO3 17*L, Arterial Blood Total CO2 17.7L, Arterial Blood Oxygen Saturation 72L, Arterial Blood Base Excess -9.2L, Radames Test YES-POS, Blood Gas Ventilator Setting NO, Blood Gas Inspired Oxygen 8L 07/26/19 22:08: White Blood Count 12.0H, Red Blood Count 4.44, Hemoglobin 13.7, Hematocrit 40, Mean Corpuscular Volume 89, Mean Corpuscular Hemoglobin 31, Mean Corpuscular Hemoglobin Concent 35, Red Cell Distribution Width 15.1H, Platelet Count 204, Mean Platelet Volume 10.7H, Neutrophils (%) (Auto) 84H, Lymphocytes (%) (Auto) 5L, Monocytes (%) (Auto) 10, Eosinophils (%) (Auto) 0, Basophils (%) (Auto) 0, Neutrophils # (Auto) 10.1H, Lymphocytes # (Auto) 0.7L, Monocytes # (Auto) 1.2H, Eosinophils # (Auto) 0.0, Basophils # (Auto) 0.0, Neutrophils % (Manual) 86, Lymphocytes % (Manual) 1, Monocytes % (Manual) 6, Band Neutrophils 7, Blood Morphology Comment NORMAL, Prothrombin Time 14.1, INR Comment 1.0, Activated Partial Thromboplast Time 22L, Sodium Level 129L, Potassium Level 4.2, Chloride Level 96L, Carbon Dioxide Level 15L, Anion Gap 18H, Blood Urea Nitrogen 56H, Creatinine 2.28H, Estimat Glomerular Filtration Rate 21, BUN/Creatinine Ratio 25, Glucose Level 357H, Lactic Acid Level 3.58*H, Calcium Level 8.6, Corrected C alcium 8.7, Magnesium Level 2.4, Total Bilirubin 0.6, Aspartate Amino Transf (AST/SGOT) 51H, Alanine Aminotransferase (ALT/SGPT) 174H, Alkaline Phosphatase 125, Total Creatine Kinase 378H, Creatine Kinase MB 13.7*H, Myoglobin 1301.9H, Troponin I 0.031H, B-Type Natriuretic Peptide 121.1H, Total Protein 6.2L, Albumin 3.9 07/26/19 23:25: Blood Gas Puncture Site RIGHT RADIAL, Blood Gas Patient Temperature 36.5, Arterial Blood pH 7.32*L, Arterial Blood Partial Pressure CO2 33L, Arterial Blood Partial Pressure O2 46L, Arterial Blood HCO3 17*L, Arterial Blood Total CO2 17.5L, Arterial Blood Oxygen Saturation 71L, Arterial Blood Base Excess - 8.5L, Radames Test YES-POS, Blood Gas Ventilator Setting NO, Blood Gas Inspired Oxygen 50% 07/27/19 00:20: Lactic Acid Level 1.89 07/27/19 03:20: White Blood Count 9.8, Red Blood Count 4.14L, Hemoglobin 12.9, Hematocrit 37, Mean Corpuscular Volume 90, Mean Corpuscular Hemoglobin 31, Mean Corpuscular Hemoglobin Concent 35, Red Cell Distribution Width 15.0H, Platelet Count 166, Mean Platelet Volume 11.0H, Neutrophils (%) (Auto) 92H, Lymphocytes (%) (Auto) 1L, Monocytes (%) (Auto) 7, Eosinophils (%) (Auto) 0, Basophils (%) (Auto) 0, Neutrophils # (Auto) 9.0H, Lymphocytes # (Auto) 0.1L, Monocytes # (Auto) 0.6, Eosinophils # (Auto) 0.0, Basophils # (Auto) 0.0, Sodium Level 126L, Potassium Level 4.2, Chloride Level 96L, Carbon Dioxide Level 15L, Anion Gap 15H, Blood Urea Nitrogen 55H, Creatinine 2.01H, Estimat Glomerular Filtration Rate 25, BUN/Creatinine Ratio 27, Glucose Level 366H, Calcium Level 7.9L, Corrected Calcium 8.2L, Phosphorus Level 5.5H, Magnesium Level 2.5H, Total Bilirubin 0.5, Aspartate Amino Transf (AST/SGOT) 39H, Alanine Aminotransferase (ALT/SGPT) 151H, Alkaline Phosphatase 114, Troponin I < 0.028, Total Protein 5.7L, Albumin 3.6, Procalcitonin 0.34H 07/27/19 04:13: Blood Gas Puncture Site LEFT RADIAL, Blood Gas Patient Temperature 35.8, Arterial Blood pH 7.34*L, Arterial Blood Partial Pressure CO2 27L, Arterial Blood Partial Pressure O2 87, Arterial Blood HCO3 14*L, Arterial Blood Total CO2 15.2L, Arterial Blood Oxygen Saturation 97, Arterial Blood Base Excess -10.5L, Radames Test YES-POS, Blood Gas Ventilator Setting NO, Blood Gas Inspired Oxygen 25% Microbiology 07/26/19 Influenza Types A,B Antigen (OSVALDO) - Final, Complete 07/26/19 Urine Culture - Preliminary, Resulted ECG Impression ECG Initial ECG Rhythm: A Fib/Flutter Initial ECG Impression: Atrial Fibrillation w/RVR Physical Exam Physical Exam Vital Signs Vital Signs - First Documented 07/26/19 07/26/19 07/27/19 21:25 23:38 00:55 Temp 36.5 Pulse 140 Resp 25 B/P (MAP) 149/111 Pulse Ox 95 O2 Delivery Nasal Cannula O2 Flow Rate 10.00 FiO2 35 Capillary Refill : Less Than 3 Seconds Height, Weight, BMI Height: 5'5.00" Weight: 200lbs. 0.8oz. 90.826067jj; 32.00 BMI Method: General Appearance: WD/WN, Chronically ill, Mild Distress HEENT: PERRL/EOMI, TMs Normal Neck: Full Range of Motion, Normal Inspection Respiratory: Chest Non Tender, Decreased Breath Sounds Cardiovascular: No Edema, Irregularly Irregular, Tachycardia Gastrointestinal: Normal Bowel Sounds, Non Tender, Soft Rectal: Deferred Back: No CVA Tenderness Extremity: Normal Capillary Refill, Normal Inspection, No Pedal Edema Neurologic/Psychiatric: Alert, Oriented x3 Skin: Normal Color, Warm/Dry Lymphatic: No Adenopathy A/P-Cardiology Admission Diagnosis Afib with RVR AE COPD Hx lung CA Acute renal failure Assessment/Plan AFib with RVR- currently patient in AFib with HR in the 170's-180's. On Cardizem gtt. Hypotensive at this time. I will give Digoxin 0.5mg, NS 1L bolus. Continue to monitor. Lovenox given in ER. Questionable hx of afib per nurse, patient noted to be on Cardizem and metoprolol as outpatient. I will evaluate 2D echo. Persistent sinus tachycardia, out of atrial fibrillation after receiving Cardizem and is oxygen, was with a narrow complex heart rate 130, Adenosine 6 mg given and showing underlying sinus rhythm. Continue to monitor Metabolic acidosis, acute respiratory failure, hypoxemia, managed by Dr. De La Cruz Diabetes mellitus, hyperglycemia, maintained on metformin, could be having underlying lactic acidosis Electrolyte imbalance, continue to monitor and managed accordingly AE COPD, Dr. De La Cruz following. Continue to monitor. Hx of Lung CA- followed by Dr. [place]. Acute renal failure- continue IVFs, continue to monitor. Ex tobaccoism Obesity Thank you for allowing us to participate in the management of Ms. Mccloud. This is Cheyanne Mazariegos PA-C as a scribe for Dr. Arevalo. Dr. Arevalo, I have seen and evaluated the patient with Cheyanne, reviewed the note and agree with the current scribed note, perform physical examination on examination patient was short of breath, tachycardic, had bilateral rhonchi, adenosine was given and showed underlying sinus rhythm, echocardiogram showed normal LV function, receiving IV fluid, currently on Cardizem drip, maintained on Lovenox to reduce the risk of stroke. Made few modifications to the note u sing Italic font Clinical Quality Measures DVT/VTE Risk/Contraindication: Risk Factor Score Per Nursin RFS Level Per Nursing on Admit: 4+=Very High CHEYANNE FLORENTINO Jul 27, 2019 09:47 CHAGO AREVALO MD Jul 27, 2019 11:46
[2019-07-27] MEDS ORDERED: CEFEPIME INJECTION 2,000 MG in WATER (STERILE) FOR INJECTION 20 ML IV SCH (11:00)
[2019-07-27] MEDS ORDERED: morphine INJ 10 MG/ML 1ML (SYR OR VIAL) IVP STA (11:04)
[2019-07-27] MEDS ORDERED: methylPREDNISolone 125 MG (Solu-MEDROL) VIAL ONE (11:09)
[2019-07-27] MEDS ORDERED: FUROSEMIDE 40 MG/4 ML INJ (LASIX) ONE (11:09)
[2019-07-27] MEDS ORDERED: ADENOSINE 6 MG/2 ML (ADENOCARD) VIAL IV ONE ×2 (11:11→11:30)
[2019-07-27] MEDS ORDERED: NS (IVPB) 0 ML ONE (11:13)
[2019-07-27] MEDS ORDERED: FUROSEMIDE 40 MG/4 ML INJ (LASIX) IVP NR (11:15)
[2019-07-27] MEDS ORDERED: methylPREDNISolone 125 MG (Solu-MEDROL) VIAL IVP NR (11:15)
--- NOTE | 2019-07-27 11:15 | NUR ---
Pastoral care visit.
[2019-07-27] MEDS ORDERED: LIDOCAINE 4% (SALONPAS) PATCH ONE (11:27)
--- NOTE | 2019-07-27 11:27 | Pulmonary Progress Note ---
Subjective Time Seen by a Provider: 11:00 Subjective/Events-last exam Called to bedside secondary to acute respiratory distress and SVT Sepsis Event Evaluation Height, Weight, BMI Height: 5'5.00" Weight: 200lbs. 0.8oz. 90.271517bi; 32.00 BMI Method: Focused Exam Lactate Level 07/26/19 22:08: Lactic Acid Level 3.58*H 07/27/19 00:20: Lactic Acid Level 1.89 Exam Exam Vital Signs Date Time Temp Pulse Resp B/P (MAP) Pulse Ox O2 Delivery O2 Flow Rate FiO2 07/27/19 10:51 95 Nasal Cannula 4.00 07/27/19 09:28 197 07/27/19 07:29 Nasal Cannula 4.00 07/27/19 06:41 123 21 96 25.00 07/27/19 06:00 123 13 112/68 (83) 91 NIV Bilevel 25.00 07/27/19 05:05 124 14 134/72 (92) 96 NIV Bilevel 25.00 07/27/19 04:00 91 Nasal Cannula 8.00 07/27/19 04:00 125 21 131/80 (97) NIV Bilevel 25.00 07/27/19 04:00 123 15 97 25.00 07/27/19 04:00 35.8 07/27/19 03:45 123 13 125/94 (104) 98 NIV Bilevel 25.00 07/27/19 03:37 36.5 140 99 45 07/27/19 03:00 123 13 126/80 (95) 97 NIV Bilevel 30.00 07/27/19 02:20 128 22 130/90 (103) 99 NIV Bilevel 30.00 07/27/19 02:00 125 14 121/90 (100) 98 NIV Bilevel 35.00 07/27/19 01:45 133 30 107/93 (98) 99 NIV Bilevel 35.00 07/27/19 01:30 130 21 131/96 (108) 100 NIV Bilevel 35.00 07/27/19 01:23 133 07/27/19 01:20 136 23 99/78 (85) 100 NIV Bilevel 35.00 07/27/19 01:07 132 18 143/83 (103) 100 NIV Bilevel 35.00 07/27/19 01:00 36.5 130 20 127/106 (124) 100 NIV Bilevel 07/27/19 00:55 NIV Bilevel 35 07/26/19 23:38 36.5 135 22 149/111 99 NIV Bilevel 07/26/19 23:06 137 23 98 50.00 07/26/19 21:45 93 Nasal Cannula 8.00 07/26/19 21:25 36.5 140 25 95 Nasal Cannula 10.00 07/26/19 21:25 Nasal Cannula 10.00 I & O 07/27/19 07:00 Intake Total 110 ml Output Total 400 ml Balance -290 ml Height & Weight Height: 5'5.00" Weight: 200lbs. 0.8oz. 90.747937ba; 32.00 BMI Method: General Appearance: WD/WN, Chronically ill, Mild Distress HEENT: PERRL/EOMI, TMs Normal Neck: Full Range of Motion, Normal Inspection Respiratory: Chest Non Tender, Decreased Breath Sounds Cardiovascular: No Edema, Irregularly Irregular, Tachycardia Capillary Refill: Less Than 3 Seconds Gastrointestinal: non tender, soft Extremity: Normal Capillary Refill, Normal Inspection, No Pedal Edema Neurologic/Psychiatric: Alert, Oriented x3 Skin: Normal Color, Warm/Dry Lymphatic: No Adenopathy Results Lab Laboratory Tests 07/26/19 22:08 07/27/19 03:20 Assessment/Plan Assessment/Plan Acute respiratory distress with sinus tach -Will give morphine 4mg IV x 1 -Start precedex -Start Vapotherm -repeat ABG and CXR -Dr. Arevalo at bedside -Solumedrol 125mg IV x 1 COPDAE -Duoneb Q4 -Add advair Dehydration -NS 100cc/hr -Will give a liter bolus over 2 hours over 2 hours Metabolic lactic acidosis -IVF - Acute renal failure -IVF Hypermag/Hyperphos -Monitor Total time spent with pt and medical staff not including this morning is 45min. KARIME ERNANDEZ DO Jul 27, 2019 11:27
--- NOTE | 2019-07-27 11:30 | NUR ---
Immediately after RT tx, pt began screaming, crying et yelling out. Pt verbalizes she is in severe lu bilat upper, lateral abd. States pain is burning et making it difficulty to breathe. Pt has been belly breathing all shift et continues to do so at this time. However, RR increased to mid 30s et became more shallow. Lung sounds tight, diminished, et wheezy. Dr. De La Cruz called et he came to bedside. New ordered received from morphine IV push, solu-medrol, et lidoderm patches. Also order given to RT Hector to change pt to Vapotherm. CXR ordered.
[2019-07-27] MEDS: DEXMEDETOMIDINE INJECTION 1,000 MCG in NS (IVPB) 240 ML IV SCH ×2 (11:36→19:32)
[2019-07-27] MEDS: LIDOCAINE 4% (SALONPAS) PATCH TOP SCH (11:37)
--- NOTE | 2019-07-27 11:37 | Diagnostic Imaging Report ---
INDICATION: COPD and dyspnea. Time of exam 11:12 AM Correlation is made with prior chest earlier the same day. The heart size is stable. Left chest wall Port-A-Cath tip overlying the SVC. Area of infiltrate or atelectasis right base is unchanged. The pulmonary vascularity is stable. No effusion or pneumothorax. IMPRESSION: Stable chest since examination earlier the same day. Dictated by: Dictated on workstation # [id number]
--- NOTE | 2019-07-27 11:40 | NUR ---
Dr. Arevalo at bedside et order 6mg adenosine, adenosine given with Dr. Arevalo et Dr. De La Cruz at bedside.
[2019-07-27 11:46] LABS: BASOPHILS % (AUTO) 0 % (0-10); EOSINOPHILS % (AUTO) 0 % (0-10); HEMATOCRIT 34 % (35-52); HEMOGLOBIN 11.4 G/DL (11.5-16.0); LYMPHOCYTES # (AUTO) 0.2 X 10^3 (1.0-4.0); LYMPHOCYTES % (AUTO) 3 % (12-44); MEAN CORPUSCULAR HEMOGLOBIN 31 PG (25-34); MEAN CORPUSCULAR HGB CONC 34 G/DL (32-36); MEAN CORPUSCULAR VOLUME 91 FL (80-99); MONOCYTES # (AUTO) 0.3 X 10^3 (0.0-1.0); MONOCYTES % (AUTO) 5 % (0-12); NEUTROPHILS # (AUTO) 5.5 X 10^3 (1.8-7.8); NEUTROPHILS % (AUTO) 92 % (42-75); PLATELET COUNT 136 10^3/uL (130-400); RED CELL DISTRIBUTION WIDTH 15.2 % (10.0-14.5)
[2019-07-27 11:54] LABS: ABG BASE EXCESS -7.7 MMOL/L (-2.5-2.5); ABG OXYGEN SATURATION 94 % (94-100); ABG PCO2 29 MMHG (35-45); ABG PH 7.38 (7.37-7.43); ABG PO2 75 MMHG (79-93); ABG TCO2 17.2 MMOL/L (21.0-31.0)
[2019-07-27 11:56] LABS: ALLENS TEST YES-POS; INSPIRED O2 25%; PATIENT TEMP 37.3; VENTILATOR NO
[2019-07-27 12:10] LABS: ALBUMIN 3.2 GM/DL (3.2-4.5); BILIRUBIN,TOTAL 0.4 MG/DL (0.1-1.0); CALCIUM 7.4 MG/DL (8.5-10.1); CREATININE SERUM 1.28 MG/DL (0.60-1.30); MAGNESIUM 2.1 MG/DL (1.6-2.4); PHOSPHORUS 4.1 MG/DL (2.3-4.7); POTASSIUM 3.9 MMOL/L (3.6-5.0); TOTAL PROTEIN 5.1 GM/DL (6.4-8.2)
[2019-07-27] MEDS: CEFEPIME INJECTION 2,000 MG in WATER (STERILE) FOR INJECTION 20 ML IV SCH (12:40)
[2019-07-27] MEDS: methylPREDNISolone 40 MG/ML (Solu-MEDROL) VIAL IVP SCH ×2 (12:53→18:15)
[2019-07-27] MEDS ORDERED: SODIUM BICARB 8.4% 50 MEQ/50 ML VIAL IV NR (13:15)
--- NOTE | 2019-07-27 13:15 | NUR ---
Pt continues with persistent yelling, screaming, et crying. Continues to c/o bilat upper, later abd pain which radiates around to spine, despite lidoderm patch, previous morphine, et precedex gtt on. Dr. De La Cruz notified. Order for CT chest, venous duplex BLE, morphine, and ativan received.
[2019-07-27] MEDS ORDERED: morphine INJ 10 MG/ML 1ML (SYR OR VIAL) IVP NR (13:17)
[2019-07-27] MEDS: HALOPERIDOL 5 MG/ML (HALDOL) AMP IV PRN ×2 (13:20→13:27)
[2019-07-27] MEDS: LORazepam INJ 2 MG/ML (ATIVAN) VIAL IVP PRN (14:12)
--- NOTE | 2019-07-27 14:13 | History & Physical-Hospitalist ---
SAMMIE BRANDON MED STUDENT 07/27/19 1413: History of Present Illness HPI/Chief Complaint Ms. Mccloud arrived in the ER yesterday evening complaining of difficulty breathing, and later of back pain. She was admitted with acute on chronic respiratory failure, possible COPD exacerbation. She has a history of being a former smoker, has right lung cancer, hypertension, chronic back pain and COPD. When I spoke to her she reported that she was feeling much improved compared to before, that she was breathing easier. She had used BiPAP during the night. Her pH was 7.34, with high anion gap, as well as high AST, ALT, BUN, and Cr. Her UA showed protein, glucose, RBC, WBC, and bacteria. Since I saw her she has developed afib with RVR, HR reaching 190s. She was started on cardizem and is being monitored closely. Source: patient, RN notes reviewed, old records Date Seen 07/27/19 Time Seen by a Provider: 08:10 Attending Physician Melly Hein DO PCP [facility],Amadeo Gant Referring Physician Date of Admission Jul 26, 2019 at 23:40 Home Medications & Allergies Home Medications Reviewed patient Home Medication Reconciliation performed by pharmacy medication reconciliations boiler technician and/or nursing. Patients Allergies have been reviewed. Allergies Allergies Coded Allergies levofloxacin (Verified Allergy, Severe, TACHYCARDIA, 11/12/18) Penicillins (Verified Allergy, Unknown, FAMILY ALLERGY, 11/12/18) Uncoded Allergies SURGICAL STEEL ( Allergy, Intermediate, RASH, 05/10/18) Past Oyoniwf-Fhqvha-Ozebtw Hx Past Med/Social Hx: Reviewed and Corrections made Patient Social History Marrital Status: Employed/Student: retired Alcohol Use: Occasionally Uses Recreational Drug Use: No Smoking Status: Former Smoker (1 10/20 PPD, BEGAN AT AGE 15, QUIT AT AGE 43) Former Smoker, Quit: Oct 19, 1992 Type Used: Cigarettes Recent Foreign Travel: No Contact w/other who traveled: No Recent Hopitalizations: No Recent Infectious Disease Expo: No Immunizations Up To Date Tetanus Booster (TDap): Unknown Date of Pneumonia Vaccine: Jul 26, 2018 Date of Influenza Vaccine: Jul 26, 2018 Seasonal Allergies Seasonal Allergies: Yes Past Medical History Surgeries: Bladder Surgery, Gallbladder, Hysterectomy Currently Using CPAP: No Currently Using BIPAP: No Cardiac: Chronic Edema/Swelling, Hypertension : No 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: No Sexually Transmitted Disease: No HIV/AIDS: No Female 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 Disorders: Denies Hysterectomy, Menopausal Musculoskeletal: Arthritis, Chronic Back Pain Loss of Vision: Bilateral Hearing Impairment: Denies Cancer: Lung Did You Recieve Any Treatments: Yes What Type of Treatment Did You: Chemotherapy, Radiation Psychosocial: Anxiety History of Blood Disorders: No Adverse Reaction to Blood Nolasco: No (N/A) Family History No Pertinent Family Hx Review of Systems Constitutional: No chills, No fever Respiratory: cough, short of breath Cardiovascular: No chest pain, No edema, No palpitations Psychiatric/Neurological: Denies Headache, Denies Numbness, Denies Tingling Physical Exam Physical Exam Vital Signs Vital Signs - First Documented 07/26/19 07/26/19 07/27/19 21:25 23:38 00:55 Temp 36.5 Pulse 140 Resp 25 B/P (MAP) 149/111 Pulse Ox 95 O2 Delivery Nasal Cannula O2 Flow Rate 10.00 FiO2 35 Capillary Refill : Less Than 3 Seconds Height, Weight, BMI Height: 5'5.00" Weight: 200lbs. 0.8oz. 90.068250hh; 32.00 BMI Method: General Appearance: Chronically ill, Mild Distress, Obese Respiratory: Accessory Muscle Use, Rhonci, Wheezing Cardiovascular: Regular Rate, Rhythm, No Murmur Neurologic/Psychiatric: Alert, Oriented x3, Normal Mood/Affect Results Results/Procedures Labs Laboratory Tests 07/26/19 22:08 07/27/19 03:20 07/27/19 11:34 Patient resulted labs reviewed. Assessment/Plan Admission Diagnosis Acute on chronic respiratory failure Assessment and Plan Assessment: 1. Respiratory failure, possible COPD exacerbation 2. Afib w/ RVR 3. Lung cancer Plan: 1. Continue steroids and antibiotics, monitor pulmonary function 2. Continue treatment and monitoring of afib Clinical Quality Measures DVT/VTE Risk/Contraindication: Risk Factor Score Per Nursin RFS Level Per Nursing on Admit: 4+=Very High MELLY HEIN DO 07/27/191951: History of Present Illness HPI/Chief Complaint CC: SOB HPI: This is a 69yoWF clinic pt of [facility] and Dr. [place] with a recent diagnosis of lung cancer former smoker who just quit recently who presented to the ER found to be in exacerbation of COPD who remains a DNR do no intubate but ABG reveals respiratory acidosis improved on biPAP, still belly breathing and now has experienced AF with RVR of heart rate of 170s and cardiology has been consulted and will manage that conservatively. Past Vbmwvbf-Uumraz-Yvpkoy Hx Past Med/Social Hx: Reviewed Nursing Past Med/Soc Hx, Reviewed and Corrections made Review of Systems Respiratory: dyspnea on exertion, short of breath Cardiovascular: palpitations Physical Exam Physical Exam General Appearance: WD/WN, Chronically ill, Moderate Distress, Obese Eyes: Right Eye Normal Inspection, Right Eye PERRL HEENT: PERRL/EOMI, Normal ENT Inspection, Pharynx Normal, Moist Mucous Membranes Neck: Full Range of Motion, Normal Inspection, Non Tender Respiratory: Chest Non Tender, Accessory Muscle Use, Crackles, Respiratory Distress, Rhonci, Wheezing Cardiovascular: No Edema, No Gallop, No JVD, No Murmur, Normal Peripheral Pulses, Irregularly Irregular, Tachycardia Gastrointestinal: Normal Bowel Sounds, No Organomegaly, No Pulsatile Mass, Non Tender, Soft Back: Normal Inspection, No CVA Tenderness, No Vertebral Tenderness Extremity: Normal Capillary Refill, Normal Inspection, Normal Range of Motion, Non Tender, No Calf Tenderness, No Pedal Edema Neurologic/Psychiatric: Alert, No Motor/Sensory Deficits, Normal Mood/Affect, Disoriented Skin: Normal Color, Warm/Dry Lymphatic: No Adenopathy Assessment/Plan Admission Diagnosis Respiratory failure AF w/RVR Lung cancer Plan: ICU DNR Prognosis poor Admission Status: Inpatient Order (span 2 midnights) Reason for Inpatient Admission: Resp failure Diagnosis/Problems Diagnosis/Problems (1) Acute on chronic respiratory failure Status: Acute Qualifiers: Respiratory failure complication: unspecified whether with hypoxia or h ypercapnia Qualified Codes: J96.20 - Acute and chronic respiratory failure, u nspecified whether with hypoxia or hypercapnia (2) Elevated troponin Status: Acute (3) Acute renal failure Status: Acute (4) Lung cancer (5) COPD (chronic obstructive pulmonary disease) Supervisory-Addendum Brief Verification & Attestation Participated in pt care: history, MDM, physical Personally performed: exam, history, MDM, supervision of care Care discussed with: Medical Student Procedures: n/a Results interpretation: Verified all documentation Verification and Attestation of Medical Student E/M Service A medical student performed and documented this service in my presence. I reviewed and verified all information documented by the medical student and made modifications to such information, when appropriate. I personally performed the physical exam and medical decision making. Melly Hein, Jul 27, 2019,19:52 SAMMIE BRANDON MED STUDENT Jul 27, 2019 14:13 MELLY HEIN DO Jul 27, 2019 19:52
--- NOTE | 2019-07-27 14:15 | NUR ---
Pt taken to imaging for CT, accompanied by DAGO Mcgrath
--- NOTE | 2019-07-27 14:35 | NUR ---
Pt returned from CT, pt is finally resting comfortably.
--- NOTE | 2019-07-27 14:55 | NUR ---
RD ASSESSMENT PMHx: COPD, HTN, chronic constipation PT INTERACTION: Pt was awake and pleasant during nutrition assessment. Pt states current appetite as "so-so" and has been this way for the past few weeks. Pt states following a regular diet at home, though she has started to "avoid fried foods and big portions." Pt states some recent issues with nausea and vomiting. Pt states no recent issues with constipation or diarrhea at this time, and that last BM was 07/26. Pt state unsure of recent wt changes. Note unable to determine recent wt hx per chart review. ABNORMAL NUTRITION-RELATED LAB VALUES: Na 126 (L); Cl 96 (L); Ca 7.9 (L); BUN 55 (H); cr. 2.01 (H); glu 366 (H); phos 5.5 (H); Mg 2.5 (H); AST 39 (H); ALT 151 (H); Pro 5.7 (L) Est. kcal needs: 0820-2053 kcal (15-20 kcal/kg) Est. Pro needs: 74-93 g Pro (0.8-1.0 g Pro/kg) PES STATEMENT: Inadequate oral intake related to loss of appetite as evidenced by pt interview INTERVENTION: Continue with current diet order of 2g Sodium diet. Encouraged pt to eat when able. MONITOR/EVALUATE: PO Intake; Plan of Care; Hydration Status; Weight Status; Lab Values Hugo Fernandes, MS, RD, LD [phone]
--- NOTE | 2019-07-27 15:14 | Diagnostic Imaging Report ---
PROCEDURE: CT chest without contrast. TECHNIQUE: Multiple contiguous axial images were obtained through the chest without the use of intravenous contrast. Auto Exposure Controls were utilized during the CT exam to meet ALARA standards for radiation dose reduction. INDICATION: Shortness of breath, back pain. FINDINGS: The previous CT chest exams of 06/30/2019, 04/07/2019, 01/13/2019 and 09/03/2018 had noted an irregular parenchymal density along the posterior medial aspect of the right lung base. That finding is again evident on this study and does not seem to have changed significantly. This may be secondary to chronic atelectasis/scar formation. The lungs are otherwise generally clear. There are emphysematous changes involving both lungs. The heart size is borderline enlarged and a small (1.2 cm in maximum thickness density has developed along the anterior border of the heart. This could represent a small effusion or pericardial thickening. The aorta is not abnormally dilated. There is no obvious mediastinal or hilar adenopathy. The thyroid gland is generally unremarkable. There is no definite breast mass visualized. The left-sided Port-A-Cath noted previously is again evident. The tip of the catheter is still in the mid superior vena cava. The sections through the upper abdomen fail to show any sign of an acute abnormality. As noted on the previous study, there is fatty liver mass to the liver and evidence of a prior cholecystectomy. On the reconstructed parasagittal images, the compression deformities involving T7, T8 and T9 noted on the previous exam are again visualized and no different. However, in the interval since the prior exam, a 40-50% compression deformity at the inferior endplate of T6 has developed. This may be subacute in nature. There is no sign of a retropulsed fragment. No other acute bony abnormality is noted. There is deformity of the sternum due to a prior fracture. IMPRESSION: 1. The abdominal parenchymal density in the posterior aspect of the right lower lobe seen previously is again evident and does not seem to have changed significantly. The stability of this finding of almost one-year period would suggest this probably related to chronic atelectasis/scar formation. 2. There is no acute cardiopulmonary abnormality noted. 3. The heart is borderline enlarged and the newly developed density along the anterior heart border may be related to either pericardial thickening or to a small pericardial effusion. 4. In the interval since the previous study, a 40-50% compression deformity of the inferior endplate of T6 has developed. This is probably subacute in nature. Kyphoplasty should be considered. These results were discussed with Dr. Ryan De La Cruz. Dictated by: Dictated on workstation # [id number]
--- NOTE | 2019-07-27 15:21 | Diagnostic Imaging Report ---
PROCEDURE: US Venous Lower Ext [place]. TECHNIQUE: Multiple Real-time grayscale images were obtained over the lower extremities in various projections bilaterally. Additional duplex Doppler and color Doppler images were also obtained. INDICATION: Shortness of breath and lower extremity pain and swelling. FINDINGS: There is no evidence of right or left lower extremity DVT. Both lower extremity deep venous systems demonstrate normal compressibility with normal response to augmentation and Valsalva. No fluid collection or mass is seen. IMPRESSION: No evidence of right or left lower extremity DVT. Dictated by: Dictated on workstation # [id number]
[2019-07-27] MEDS: PATCH REMOVAL TP SCH (21:00)
[2019-07-28] VITALS (27 sets, daily range): BP systolic 98–167; BP diastolic 59–103
[2019-07-28] MEDS: methylPREDNISolone 40 MG/ML (Solu-MEDROL) VIAL IVP SCH ×4 (00:05→18:33)
[2019-07-28] MEDS: NS IV 1000 ML 1,000 ML IV SCH ×2 (00:06→07:45)
[2019-07-28] MEDS: inSUlin ASPART (NovoLOG) 1 UNIT/0.01 ML (CHARGE PER UNIT) SC SCH ×4 (00:13→18:33)
[2019-07-28] MEDS ORDERED: ENOXAPARIN 100 MG/1 ML (LOVENOX) SYR SC SCH (00:30)
[2019-07-28] MEDS: RT-ALBUTEROL/IPRATROPIUM 3 ML (DUONEB) VIAL INH SCH ×6 (02:17→21:48)
[2019-07-28] MEDS: DEXMEDETOMIDINE INJECTION 1,000 MCG in NS (IVPB) 240 ML IV SCH (03:19)
[2019-07-28] MEDS: morphine INJ 4 MG/ML 1 ML (VIAL/SYRINGE) IVP PRN ×2 (03:19→11:42)
[2019-07-28] MEDS: LORazepam INJ 2 MG/ML (ATIVAN) VIAL IVP PRN ×3 (03:36→17:36)
[2019-07-28] MEDS: HALOPERIDOL 5 MG/ML (HALDOL) AMP IV PRN (03:36)
[2019-07-28 03:40] LABS: BASOPHILS % (AUTO) 0 % (0-10); EOSINOPHILS % (AUTO) 0 % (0-10); HEMATOCRIT 29 % (35-52); HEMOGLOBIN 10.1 G/DL (11.5-16.0); LYMPHOCYTES # (AUTO) 0.1 X 10^3 (1.0-4.0); LYMPHOCYTES % (AUTO) 3 % (12-44); MEAN CORPUSCULAR HEMOGLOBIN 31 PG (25-34); MEAN CORPUSCULAR HGB CONC 35 G/DL (32-36); MEAN CORPUSCULAR VOLUME 90 FL (80-99); MONOCYTES # (AUTO) 0.4 X 10^3 (0.0-1.0); MONOCYTES % (AUTO) 10 % (0-12); NEUTROPHILS # (AUTO) 3.4 X 10^3 (1.8-7.8); NEUTROPHILS % (AUTO) 87 % (42-75); PLATELET COUNT 114 10^3/uL (130-400); RED CELL DISTRIBUTION WIDTH 15.6 % (10.0-14.5); WHITE BLOOD COUNT 3.9 10^3/uL (4.3-11.0)
[2019-07-28 04:04] LABS: BUN/CREATININE RATIO 46; CALCIUM 7.4 MG/DL (8.5-10.1); CARBON DIOXIDE 21 MMOL/L (21-32); CHLORIDE 106 MMOL/L (98-107); CHOLESTEROL 157 MG/DL (< 200); CREATININE SERUM 0.84 MG/DL (0.60-1.30); GFR ESTIMATED > 60; GLUCOSE 324 MG/DL (70-105); HDL CHOLESTEROL 41 MG/DL (40-60); MAGNESIUM 2.3 MG/DL (1.6-2.4); POTASSIUM 3.5 MMOL/L (3.6-5.0); SODIUM 138 MMOL/L (135-145); TRIGLYCERIDES 219 MG/DL (<150); VLDL CHOLESTEROL 44 MG/DL (5-40)
[2019-07-28] MEDS: POTASSIUM CL 10MEQ/50ML IVPB 50 ML IV SCH ×3 (04:22→08:53)
[2019-07-28] MEDS ORDERED: KCL 20 MEQ TAB (K-DUR) PO SCH (06:00)
[2019-07-28] MEDS ORDERED: POTASSIUM CL 10MEQ/50ML IVPB 50 ML IV SCH (06:00)
[2019-07-28] MEDS ORDERED: MAGNESIUM 1 GM/100 ML IVPB 100 ML IV SCH (06:00)
[2019-07-28] MEDS ORDERED: risperiDONE 1 MG (RisperDAL) TAB PO NR (07:00)
[2019-07-28] MEDS: risperiDONE 1 MG (RisperDAL) TAB PO SCH ×2 (07:46→21:31)
[2019-07-28] MEDS: ASPIRIN E.C. 81 MG (ECOTRIN) TAB PO SCH (07:47)
[2019-07-28] MEDS: LIDOCAINE 4% (SALONPAS) PATCH TOP SCH (07:47)
--- NOTE | 2019-07-28 07:49 | Cardiology Progress Note ---
Subjective Date Seen by Provider: Jul 28, 2019 Time Seen by Provider: 07:48 Subjective/Events-last exam Patient is lethargic, received sedation early this morning, breathing better. Review of Systems General: No Chills, No Night Sweats; Fatigue, Malaise; No Appetite, No Other HEENT: No Head Aches, No Visual Changes, No Eye Pain, No Ear Pain, No Dysphasia, No Sinus Congestion, No Post Nasal Drip, No Sore Throat, No Other Pulmonary: Dyspnea; No Cough, No Pleuritic Chest Pain, No Other Cardiovascular: No: Chest Pain, Palpitations, Orthopnea, Paroxysmal Noc. Dyspnea, Edema, Lt Headedness, Other Focused Exam Lactate Level 07/26/19 22:08: Lactic Acid Level 3.58*H 07/27/19 00:20: Lactic Acid Level 1.89 07/27/19 11:34: Lactic Acid Level 1.35 Objective-Cardiology Exam Last Set of Vital Signs Vital Signs 07/28/19 07/28/19 07/28/19 07/28/19 00:00 04:00 06:00 07:22 Temp 36.0 Pulse 73 Resp 17 B/P (MAP) 100/59 (73) Pulse Ox 95 O2 Delivery Nasal Cannula O2 Flow Rate 4.00 FiO2 30 Capillary Refill : Less Than 3 Seconds I&O l Intake and Output 07/28/19 00:00 Intake Total 3385 ml Output Total 1650 ml Balance 1735 ml Intake Oral 1240 ml IV Total 2145 ml Output Urine Total 1650 ml Daily Weight Change Yes, 14-23 lbs General: Alert, Oriented X3, Cooperative HEENT: Atraumatic, PERRLA Neck: Supple, No JVD, No Thyromegaly Lungs: Clear to Auscultation, Normal Air Movement Heart: Regular Rate, Normal S1, Normal S2, No Murmurs Abdomen: Normal Bowel Sounds, Soft, No Tenderness, No Hepatosplenomegaly, No Masses Extremities: No Clubbing, No Cyanosis, No Edema, Normal Pulses, No Tenderness/Swelling Skin: No Rashes, No Breakdown, No Significant Lesion Neuro: Normal Gait, Normal Speech, Strength at 5/5 X4 Ext, Normal Tone, Sensation Intact Psych/Mental Status: Mental Status NL, Mood NL Results Lab Laboratory Tests 07/27/19 11:34 10/10/19 03:06 A/P-Cardiology Admission Diagnosis Afib with RVR AE COPD Hx lung CA Acute renal failure Assessment/Plan Paroxysmal atrial fibrillation with rapid response returned to sinus tachycardia, heart rate is better at this time. Continue to monitor Acute respiratory failure with acute exacerbation of COPD. Significant anxiety, sedated at this time and feeling better. Metabolic acidosis with acute respiratory failure, better at this time. AE COPD, Dr. De La Cruz following. Continue to monitor. Hx of Lung CA- followed by Dr. Birmingham. Acute renal failure- continue IVFs, continue to monitor. Ex tobaccoism Obesity Clinical Quality Measures DVT/VTE Risk/Contraindication: Risk Factor Score Per Nursin RFS Level Per Nursing on Admit: 4+=Very High CHAGO EISENBERG MD Jul 28, 2019 07:49
--- NOTE | 2019-07-28 07:55 | Pulmonary Progress Note ---
Subjective Time Seen by a Provider: 07:54 Subjective/Events-last exam Currently on Vapotherm. RN states pt was anxious all night. Sepsis Event Evaluation Height, Weight, BMI Height: 5'5.00" Weight: 200lbs. 0.8oz. 90.075315mn; 32.00 BMI Method: Focused Exam Lactate Level 07/26/19 22:08: Lactic Acid Level 3.58*H 07/27/19 00:20: Lactic Acid Level 1.89 07/27/19 11:34: Lactic Acid Level 1.35 Exam Exam Vital Signs Date Time Temp Pulse Resp B/P (MAP) Pulse Ox O2 Delivery O2 Flow Rate FiO2 07/28/19 07:22 95 Nasal Cannula 4.00 07/28/19 06:00 73 17 100/59 (73) 95 Vapotherm 35.00 30.00 07/28/19 05:00 73 18 99/62 (74) 92 Vapotherm 35.00 30.00 07/28/19 04:00 75 20 98/63 (75) 89 Vapotherm 35.00 30.00 07/28/19 04:00 100 Vapotherm 35.00 30 07/28/19 03:00 77 17 119/67 (84) 99 Vapotherm 35.00 30.00 07/28/19 02:17 98 Vapotherm 35.00 30 07/28/19 02:00 92 16 122/61 (81) 95 Vapotherm 35.00 30.00 07/28/19 01:00 76 07/28/19 01:00 76 15 125/67 (86) 93 Vapotherm 35.00 30.00 07/28/19 00:00 76 16 116/67 (83) 100 Vapotherm 35.00 30.00 07/28/19 00:00 100 Vapotherm 35.00 30 07/28/19 00:00 36.0 07/27/19 23:00 75 15 120/68 (85) 100 Vapotherm 35.00 30.00 07/27/19 22:51 86 13 90 Vapotherm 35.00 30.00 07/27/19 22:28 98 16 97 Vapotherm 35.00 25.00 07/27/19 22:23 98 Vapotherm 35.00 25 07/27/19 22:00 76 16 103/66 (78) 100 Vapotherm 35.00 35.00 07/27/19 21:00 96 18 98/64 (75) 100 Vapotherm 35.00 35.00 07/27/19 20:00 79 16 104/67 (79) 100 Vapotherm 35.00 35.00 07/27/19 20:00 100 Vapotherm 35.00 40 07/27/19 20:00 35.9 07/27/19 19:26 84 16 101/62 (75) 100 Vapotherm 35.00 35.00 07/27/19 19:19 100 Vapotherm 35.00 35 07/27/19 19:00 86 17 107/62 (77) 100 Vapotherm 35.00 40.00 07/27/19 19:00 86 07/27/19 18:00 96 16 102/60 (74) 100 Vapotherm 35.00 40.00 07/27/19 17:00 100 18 111/54 (73) 99 Vapotherm 35.00 40.00 07/27/19 16:00 100 20 93/56 (68) 100 Nasal Cannula 4.00 07/27/19 16:00 36.0 07/27/19 15:58 Vapotherm 35.00 40 07/27/19 15:00 104 21 103/68 (80) 98 Vapotherm 35.00 40.00 07/27/19 14:57 97 Vapotherm 35.00 40 07/27/19 14:00 122 23 119/68 (85) 84 Vapotherm 35.00 40.00 07/27/19 13:05 133 07/27/19 13:00 33 153/77 (102) 94 Vapotherm 35.00 40.00 07/27/19 12:00 133 18 112/93 (99) 95 Vapotherm 35.00 40.00 07/27/19 12:00 Vapotherm 35.00 40 07/27/19 12:00 36.8 07/27/19 11:00 133 39 139/112 (121) 90 Nasal Cannula 4.00 07/27/19 10:51 95 Nasal Cannula 4.00 07/27/19 10:00 179 24 108/80 (89) 97 Nasal Cannula 4.00 07/27/19 09:28 197 07/27/19 09:00 186 21 95/79 (84) 96 Nasal Cannula 4.00 07/27/19 08:52 172 07/27/19 08:00 121 17 108/75 (86) 99 Nasal Cannula 4.00 07/27/19 08:00 36.4 07/27/19 08:00 Nasal Cannula 4.00 I & O 07/28/19 07:00 Intake Total 3285 ml Output Total 2100 ml Balance 1185 ml Height & Weight Height: 5'5.00" Weight: 200lbs. 0.8oz. 90.356918wa; 32.00 BMI Method: General Appearance: WD/WN, Chronically ill, Mild Distress HEENT: PERRL/EOMI, TMs Normal Neck: Full Range of Motion, Normal Inspection Respiratory: Chest Non Tender, Decreased Breath Sounds Cardiovascular: No Edema, Irregularly Irregular, Tachycardia Capillary Refill: Less Than 3 Seconds Gastrointestinal: non tender, soft Extremity: Normal Capillary Refill, Normal Inspection, No Pedal Edema Neurologic/Psychiatric: Alert, Oriented x3 Skin: Normal Color, Warm/Dry Lymphatic: No Adenopathy Results Lab Laboratory Tests 07/26/19 22:08 07/27/19 03:20 07/27/19 11:34 07/28/19 03:06 Assessment/Plan Assessment/Plan Acute respiratory distress with sinus tach -D/C precedex -trial from Vapotherm to NC -Solumedrol COPDAE -Duoneb Q4 -advair Thoracic compression fracture -Defer to PCP Dehydration -NS -= decrease to 50cc/hr Metabolic lactic acidosis -IVF Acute renal failure -IVF KARIME ERNANDEZ DO Jul 28, 2019 07:55
--- NOTE | 2019-07-28 07:57 | Diagnostic Imaging Report ---
INDICATION: COPD. Comparison is made with prior examination of 07/27/2019. FINDINGS: There is cardiomegaly. There is patchy bibasilar atelectasis and/or pneumonitis. There is no pneumothorax. Mediastinum is unremarkable. [id number] catheter overlies left hemithorax. IMPRESSION: Cardiomegaly with some patchy bibasilar atelectasis and/or pneumonitis, left greater than right. Dictated by: Dictated on workstation # [id number]
[2019-07-28] MEDS ORDERED: oxyCODONE/APAP 5/325MG (PERCOCET 5) TABLET ONE (09:41)
[2019-07-28] MEDS: oxyCODONE/APAP 5/325MG (PERCOCET 5) TABLET PO PRN ×2 (09:54→13:04)
--- NOTE | 2019-07-28 10:33 | Progress Note - Hospitalist ---
SAMMIE BRANDON MED STUDENT 07/28/19 1033: Subjective HPI/CC On Admission Date Seen by Provider: Jul 28, 2019 Time Seen by Provider: 07:50 CC: SOB HPI: This is a 69yoWF clinic pt of [facility] and Dr. Birmingham with a recent diagnosis of lung cancer former smoker who just quit recently who presented to the ER found to be in exacerbation of COPD who remains a DNR do no intubate but ABG reveals respiratory acidosis improved on biPAP, still belly breathing and now has experienced AF with RVR of heart rate of 170s and cardiology has been consulted and will manage that conservatively. Subjective/Events-last exam * appeared to be breathing better than before. * nurse informed me she was on a lower flow nasal cannula than before. * unable to do a review of systems due to minimal responsiveness. I asked her some questions and she seemed to say she was feeling better overall, but it was difficult to discern what she said, and she would not respond to all my questions. She would nod her head when I told her I was going to listen to her heart in lungs. * Yesterday she had an x-ray which revealed a compression of the T6 endplate, and during the night she complained of severe back pain. Focused Exam Lactate Level 07/26/19 22:08: Lactic Acid Level 3.58*H 07/27/19 00:20: Lactic Acid Level 1.89 07/27/19 11:34: Lactic Acid Level 1.35 Objective Exam Vital Signs Vital Signs Date Time Temp Pulse Resp B/P (MAP) Pulse Ox O2 Delivery O2 Flow Rate FiO2 07/28/19 16:22 94 NIV Bilevel 28 07/28/19 16:02 36.5 07/28/19 16:00 137 21 126/83 (97) 28.00 Capillary Refill : Less Than 3 Seconds General Appearance: Moderate Distress, Obese Respiratory: No Respiratory Distress, Accessory Muscle Use, Wheezing Cardiovascular: Regular Rate, Rhythm, No Gallop, No Murmur Extremity: Pedal Edema Neurologic/Psychiatric: No Alert, No Oriented x3 Results/Procedures Lab Laboratory Tests 07/28/19 03:06 Patient resulted labs reviewed. Assessment/Plan Assessment and Plan Assess & Plan/Chief Complaint Assessment: 1. Back pain, T6 compression 2. Respiratory failure, possible COPD exacerbation 3. Afib w/ RVR 4. Lung cancer Plan: 1. Consider increasing analgesia to manage back pain, monitor GI function 2. Continue cefepime and methylprednisolone, monitor pulmonary function 3. Continue monitoring of afib Clinical Quality Measures DVT/VTE Risk/Contraindication: Risk Factor Score Per Nursin RFS Level Per Nursing on Admit: 4+=Very High MELLY HEIN DO 07/28/192055: Subjective Subjective/Events-last exam Having a lot of pain from T6 compression fracture. Will order Percocet for pain. Had a BM this morning. Conferred with Dr. Birmingham. Will evaluate whether kyphoplasty is reasonable or not. Moving to fourth floor. Overall prognosis is very poor. Review of Systems Musculoskeletal: back pain Objective Exam General Appearance: WD/WN, Severe Distress Respiratory: Lungs Clear Cardiovascular: Regular Rate, Rhythm Assessment/Plan Assessment and Plan Assess & Plan/Chief Complaint Pain control Prognosis poor Diagnosis/Problems Diagnosis/Problems (1) Acute on chronic respiratory failure Status: Acute Qualifiers: Qualified Codes: J96.20 - Acute and chronic respiratory failure, unspecified whether with hypoxia or hypercapnia (2) Compression fracture of T6 vertebra (3) Lung cancer (4) COPD (chronic obstructive pulmonary disease) (5) Uncontrolled hypertension Status: Acute (6) Elevated troponin Status: Acute (7) Elevation of cardiac enzymes Status: Acute (8) Anxiety Status: Acute Supervisory-Addendum Brief Verification & Attestation Participated in pt care: history, MDM, physical Personally performed: exam, history, MDM, supervision of care Care discussed with: Medical Student Procedures: n/a Results interpretation: Verified all documentation Verification and Attestation of Medical Student E/M Service A medical student performed and documented this service in my presence. I reviewed and verified all information documented by the medical student and made modifications to such information, when appropriate. I personally performed the physical exam and medical decision making. Melly Hein, Jul 28, 2019,20:56 SAMMIE BRANDON MED STUDENT Jul 28, 2019 10:33 MELLY HEIN DO Jul 28, 2019 20:56
[2019-07-28] MEDS: CEFEPIME INJECTION 2,000 MG in WATER (STERILE) FOR INJECTION 20 ML IV SCH (11:07)
[2019-07-28] MEDS: meTOprolol TARTRATE 25 MG (LOPRESSOR) TABLET PO SCH ×2 (14:58→21:31)
[2019-07-28] MEDS ORDERED: HALOPERIDOL 5 MG/ML (HALDOL) AMP IV PRN (15:45)
[2019-07-28] MEDS: HYDROmorphone 2 MG/ML VIAL (DILAUDID) IV PRN ×2 (15:54→20:25)
--- NOTE | 2019-07-28 17:32 | Consultation ---
History of Present Illness History of Present Illness Patient Consulted On(oliverio/time) 07/28/19 17:23 Date Seen by Provider: Jul 28, 2019 Time Seen by Provider: 14:30 Reason for Visit: Afib with RVR History of Present Illness Ms. Mccloud is a 69 yo female with COPD and locoregional recurrence of stage IA non small cell lung carcinoma. Two nights ago, she was admitted to the hospital with respiratory failure, atrial fibrillation with rapid ventricular response, acute renal failure, hypovolemic hyponatremia, and metabolic acidosis. Currently she is on BiPAP due to increased work of breathing and respiratory fatigue. She gives limited history due to narcotic pain relief but complains of severe mid back pain in addition to her shortness of breath. On the outpatient setting, she was being treated with maintenance immunotherapy to reduce recurrence of her lung cancer. So far, there has been no evidence of cancer progression, which is confirmed with CT abd/pelvis on admission and about one month ago. Immunotherapy was held due to significant increase in liver enzymes, which we feared to be autoimmune hepatitis, so she was started on a moderately slow taper of prednisone. Prior to her admission, there was continued improvement of her transaminases. Patient was also complaining of bilateral leg swelling and was treated empirically with antibiotics without much improvement. Allergies and Home Medications Allergies Coded Allergies: levofloxacin (Verified Allergy, Severe, TACHYCARDIA, 11/12/18) Penicillins (Verified Allergy, Unknown, FAMILY ALLERGY, 11/12/18) Uncoded Allergies: SURGICAL STEEL (Allergy, Intermediate, RASH, 05/10/18) Home Medications Albuterol Sulfate 18 Gm Hfa.aer.ad, 2 PUFF INH Q6H PRN for SHORTNESS OF BREATH, (Reported) Cetirizine HCl 10 Mg Tablet, 10 MG PO DAILY, (Reported) Cholecalciferol (Vitamin D3) 2,000 Unit Capsule, 2,000 UNIT PO DAILY, (Reported) Diltiazem HCl 240 Mg Cap.er.24h, 240 MG PO DAILY, (Reported) Fluticasone Propionate 16 Gm [place].susp, 1 SPRAY NS DAILY, (Reported) Lutein 10 Mg Tablet, 10 MG PO DAILY, (Reported) Metformin HCl 500 Mg Tablet, 500 MG PO BID, (Reported) Methimazole 5 Mg Tablet, 5 MG PO DAILY, (Reported) Metoprolol Tartrate 25 Mg Tablet, 25 MG PO BID, (Reported) Mometasone/Formoterol 13 Gm Hfa.aer.ad, 2 PUFF IH BID, (Reported) Montelukast Sodium 10 Mg Tablet, 10 MG PO DAILY, (Reported) Multivitamin 1 Each Tablet, 1 TAB PO DAILY, (Reported) Tiotropium [place] 1 Inh Aerp, 1 CAP IH DAILY, (Reported) Patient Home Medication List Home Medication List Reviewed: Yes Past Pmcrecn-Bzrjbp-Lmlqgc Hx Past Med/Social Hx: Reviewed Nursing Past Med/Soc Hx, Reviewed and Corrections made Patient Social History Alcohol Use: Occasionally Uses Recreational Drug Use: No Smoking Status: Former Smoker (1 10/20 PPD, BEGAN AT AGE 15, QUIT AT AGE 43) Type Used: Cigarettes Former Smoker, Quit: Oct 19, 1992 Recent Foreign Travel: No Contact w/Someone Who Travel: No Recent Infectious Disease Expo: No Recent Hopitalizations: No Physical Abuse: No Sexual Abuse: No Immunizations Up To Date Tetanus Booster (TDap): Unknown Date of Pneumonia Vaccine: Jul 26, 2018 Date of Influenza Vaccine: Jul 26, 2018 Seasonal Allergies Seasonal Allergies: Yes Past Medical History Surgeries: Yes (ANTERIOR REPAIR, POWER PORT PLACEMENT LEFT CHEST; BRONCHOSCOPY; REMOVAL OF BENIGN MASS FROM LEFT 4TH FINGER--BENIGN VARIX WITH THROMBUS 10/2018) Bladder Surgery, Gallbladder, Hysterectomy Respiratory: Yes (RT LUNG MASS/LUNG CANCER, O2 6L) Pneumonia, Chronic Bronchitis, COPD Currently Using CPAP: No Currently Using BIPAP: No Cardiac: Yes Chronic Edema/Swelling, Hypertension Neurological: No : No 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 Disorders: No Female 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 Disorders: Denies [employer] History: Hysterectomy, Menopausal Sexually Transmitted Disease: No HIV/AIDS: No Genitourinary: No Gastrointestinal: No Musculoskeletal: Yes Arthritis, Chronic Back Pain Endocrine: Yes (THYROID ISSUES--ON METHIMAZOLE) HEENT: Yes (GLASSES) Loss of Vision: Bilateral Hearing Impairment: Denies Cancer: Yes Lung Did You Recieve Any Treatments: Yes What Type of Treatment Did You: Chemotherapy, Radiation Psychosocial: Yes (RELATED TO MEDICAL ISSUES) Anxiety Integumentary: No Blood Disorders: No Adverse Reaction/Blood Tranf: No (N/A) Family Medical History No Pertinent Family Hx Review of Systems-General Constitutional: malaise, weakness Respiratory: cough, dyspnea on exertion, short of breath Cardiovascular: edema Gastrointestinal: no symptoms reported Genitourinary: no symptoms reported Musculoskeletal: back pain, muscle weakness Skin: no symptoms reported Psychiatric/Neurological: No Symptoms Reported Physical Exam-General Problems Physical Exam Vital Signs Vital Signs - First Documented 07/26/19 07/26/19 07/27/19 21:25 23:38 00:55 Temp 36.5 Pulse 140 Resp 25 B/P (MAP) 149/111 Pulse Ox 95 O2 Delivery Nasal Cannula O2 Flow Rate 10.00 FiO2 35 Capillary Refill : Less Than 3 Seconds General Appearance: WD/WN, severe distress Eyes: Bilateral Eye Normal Inspection HEENT: normal ENT inspection Respiratory: decreased breath sounds, accessory muscle use, wheezing Cardiovascular: tachycardia Peripheral Pulses: 2+ Radial Pulses (L) Gastrointestinal: non tender, soft, no pulsatile mass, abnormal bowel sounds Extremities: pedal edema Neurologic/Psychiatric: other (disoriented to time but oriented to person place and situation, somnolent) Skin: warm/dry Assessment/Plan Assessment/Plan Admission Diagnosis/Plan 69 yo female with COPD and lung cancer being treated with maintenance immunotherapy was admitted with acute respiratory failure, a fib with RVR, renal failure, and electrolyte abnormalities. 1. Acute on chronic hypoxic respiratory failure secondary to COPD exacerbation and uncontrolled a fib. A fib now controlled but patient still requirement noninvasive positive pressure ventilation. Managed by ICU team. 2. A fib with RVR. Resolved. Reactive tachycardia currently. Followed by cardiology. 3. Acute renal failure and metabolic acidosis. Resolved with aggressive hydration. 4. Severe back pain secondary to new C6 compression fracture. Opiate management limited by respiratory failure. Will need to follow with primary care for management of osteoporosis. Recommend local therapy with steroid injection, nerve blocks, analgesic pain pumps, et cetera in the interest of limiting opiate use. If such services are available inpatient, would recommend seeking those services now. Limited evidence for benefit of kyphoplasty, but it could be useful on a case by case basis. 5. Transaminitis with unclear etiology. Improved, just finished steroid taper. 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 6. Lung cancer. No evidence of recurrent disease. Maintenance immunotherapy held currently secondary to #5. Thank you for allowing me to participate in the care of Ms. Mccloud. Clinical Quality Measures DVT/VTE Risk/Contraindication: Risk Factor Score Per Nursin RFS Level Per Nursing on Admit: 4+=Very High LEROY BAHENA MD Jul 28, 2019 17:32
--- NOTE | 2019-07-28 18:40 | NUR ---
1830 DUE TO CHANGES IN STAFFING CARE OF PT TO THIS RN. PT RESTING QUIETLY IN BED PT ON BIPAP AT THIS TIME. NO NEEDS NOTED CALL LIGHT AND OTHER PERSONAL ITEMS WITHIN REACH, WILL CONTINUE TO MONITOR.
[2019-07-28] MEDS: PATCH REMOVAL TP SCH (21:31)
[2019-07-29] VITALS (17 sets, daily range): BP systolic 101–168; BP diastolic 76–102
[2019-07-29] MEDS: methylPREDNISolone 40 MG/ML (Solu-MEDROL) VIAL IVP SCH ×2 (00:13→10:21)
[2019-07-29] MEDS: inSUlin ASPART (NovoLOG) 1 UNIT/0.01 ML (CHARGE PER UNIT) SC SCH ×5 (00:13→22:42)
[2019-07-29] MEDS: LORazepam INJ 2 MG/ML (ATIVAN) VIAL IVP PRN ×4 (01:20→23:24)
[2019-07-29] MEDS: NS IV 1000 ML 1,000 ML IV SCH (01:52)
[2019-07-29] MEDS: HYDROmorphone 2 MG/ML VIAL (DILAUDID) IV PRN (02:36)
[2019-07-29] MEDS: RT-ALBUTEROL/IPRATROPIUM 3 ML (DUONEB) VIAL INH SCH ×5 (02:50→22:50)
[2019-07-29 03:13] LABS: BASOPHILS % (AUTO) 0 % (0-10); EOSINOPHILS % (AUTO) 0 % (0-10); HEMATOCRIT 33 % (35-52); LYMPHOCYTES # (AUTO) 0.2 X 10^3 (1.0-4.0); LYMPHOCYTES % (AUTO) 3 % (12-44); MEAN CORPUSCULAR HEMOGLOBIN 31 PG (25-34); MEAN CORPUSCULAR HGB CONC 33 G/DL (32-36); MEAN CORPUSCULAR VOLUME 93 FL (80-99); MONOCYTES # (AUTO) 0.4 X 10^3 (0.0-1.0); MONOCYTES % (AUTO) 5 % (0-12); NEUTROPHILS # (AUTO) 7.1 X 10^3 (1.8-7.8); NEUTROPHILS % (AUTO) 92 % (42-75); PLATELET COUNT 129 10^3/uL (130-400); RED CELL DISTRIBUTION WIDTH 16.6 % (10.0-14.5); WHITE BLOOD COUNT 7.7 10^3/uL (4.3-11.0)
[2019-07-29 03:43] LABS: BUN/CREATININE RATIO 52; CALCIUM 8.2 MG/DL (8.5-10.1); CARBON DIOXIDE 18 MMOL/L (21-32); CHLORIDE 107 MMOL/L (98-107); CREATININE SERUM 0.77 MG/DL (0.60-1.30); GFR ESTIMATED > 60; GLUCOSE 223 MG/DL (70-105); MAGNESIUM 2.6 MG/DL (1.6-2.4); PHOSPHORUS 2.4 MG/DL (2.3-4.7); POTASSIUM 4.2 MMOL/L (3.6-5.0); SODIUM 137 MMOL/L (135-145)
[2019-07-29] MEDS ORDERED: SODIUM BICARB 8.4% 50 MEQ/50 ML VIAL IV ONE (04:45)
[2019-07-29] MEDS ORDERED: FUROSEMIDE 40 MG/4 ML INJ (LASIX) IVP ONE (04:45)
--- NOTE | 2019-07-29 04:46 | Pulmonary Progress Note ---
Subjective Time Seen by a Provider: 05:00 Subjective/Events-last exam Currently on BiPAP however only requiring minimal Fi02 Sepsis Event Evaluation Height, Weight, BMI Height: 5'5.00" Weight: 200lbs. 0.8oz. 90.554301bg; 32.00 BMI Method: Focused Exam Lactate Level 07/26/19 22:08: Lactic Acid Level 3.58*H 07/27/19 00:20: Lactic Acid Level 1.89 07/27/19 11:34: Lactic Acid Level 1.35 Exam Exam Vital Signs Date Time Temp Pulse Resp B/P (MAP) Pulse Ox O2 Delivery O2 Flow Rate FiO2 07/29/19 04:00 21 117/86 (96) 94 NIV Bilevel 28.00 07/29/19 04:00 36.2 07/29/19 04:00 94 NIV Bilevel 28 07/29/19 03:00 14 117/102 (107) 94 NIV Bilevel 28.00 07/29/19 02:50 118 12 94 28.00 07/29/19 02:00 16 106/79 (88) 94 NIV Bilevel 28.00 07/29/19 01:00 13 139/88 (105) 96 NIV Bilevel 28.00 07/29/19 00:54 120 07/29/19 00:10 36.8 07/29/19 00:00 118 11 119/84 (96) 97 NIV Bilevel 28.00 07/29/19 00:00 94 NIV Bilevel 28 07/28/19 23:00 122 15 141/82 (101) 95 NIV Bilevel 28.00 07/28/19 22:00 118 11 118/93 (101) 98 NIV Bilevel 28.00 07/28/19 21:48 126 14 95 28.00 07/28/19 21:00 124 11 129/87 (101) 92 NIV Bilevel 28.00 07/28/19 20:26 130 07/28/19 20:00 22 122/85 (97) 95 NIV Bilevel 28.00 07/28/19 20:00 37.0 07/28/19 20:00 94 NIV Bilevel 28 07/28/19 19:00 16 109/86 (94) 100 NIV Bilevel 28.00 07/28/19 18:49 126 20 94 28.00 07/28/19 18:00 140 167/87 (113) 95 NIV Bilevel 28.00 07/28/19 17:00 130 18 148/103 (118) 96 NIV Bilevel 28.00 07/28/19 16:22 94 NIV Bilevel 28 07/28/19 16:02 36.5 07/28/19 16:00 137 21 126/83 (97) 95 NIV Bilevel 28.00 07/28/19 15:37 NIV Bilevel 28.00 07/28/19 15:07 125 21 99 28.00 07/28/19 15:00 130 25 153/75 (101) 99 NIV Bilevel 60.00 07/28/19 14:27 NIV Bilevel 60.00 07/28/19 14:00 131 13 151/77 (101) 97 NIV Bilevel 70.00 07/28/19 13:43 NIV Bilevel 70.00 07/28/19 13:00 141 36 158/70 (99) 97 NIV Bilevel 40.00 07/28/19 12:26 131 07/28/19 12:15 36.1 07/28/19 12:00 131 26 109/64 (79) 97 Nasal Cannula 4.00 07/28/19 12:00 96 Nasal Cannula 2.00 07/28/19 11:00 137 40 142/74 (96) 92 Nasal Cannula 4.00 07/28/19 10:46 97 Nasal Cannula 2.00 07/28/19 10:00 108 21 118/88 (98) 100 Nasal Cannula 4.00 07/28/19 09:00 108 28 104/66 (79) 94 Nasal Cannula 4.00 07/28/19 08:00 98 17 103/73 (83) 98 Nasal Cannula 4.00 07/28/19 07:45 98 Nasal Cannula 4.00 07/28/19 07:22 95 Nasal Cannula 4.00 07/28/19 07:00 86 07/28/19 07:00 71 21 102/61 (75) 94 Vapotherm 35.00 30.00 07/28/19 06:00 73 17 100/59 (73) 95 Vapotherm 35.00 30.00 07/28/19 05:00 73 18 99/62 (74) 92 Vapotherm 35.00 30.00 I & O 07/29/19 07:00 Intake Total 1650 ml Output Total 825 ml Balance 825 ml Height & Weight Height: 5'5.00" Weight: 200lbs. 0.8oz. 90.314246tw; 32.00 BMI Method: General Appearance: WD/WN, Anxious, Chronically ill, Mild Distress HEENT: PERRL/EOMI, TMs Normal Neck: Full Range of Motion, Normal Inspection Respiratory: Lungs Clear, Decreased Breath Sounds Cardiovascular: Regular Rate, Rhythm Capillary Refill: Less Than 3 Seconds Peripheral Pulses: 2+ Radial Pulses (L) Gastrointestinal: non tender, soft, no pulsatile mass, abnormal bowel sounds Extremity: Pedal Edema Neurologic/Psychiatric: Alert; No Oriented x3 Skin: Normal Color, Warm/Dry Lymphatic: No Adenopathy Results Lab Laboratory Tests 07/27/19 11:34 07/28/19 03:06 07/29/19 02:55 Assessment/Plan Assessment/Plan Acute respiratory distress with sinus tach -Currently on BiPAP -Trial to back to regular NC. Pt is requiring minimal Fi02 -Solumedrol - decrease to daily x 1 day then D/C secondary to psychosis. -Check BNP -Give lasix x 1 Acute pain with compression fracture -Pain control -Possible kyphoplasty once pt is stable Psychosis - probably acute on chronic -Risperadol, -PRN Haldol COPDAE -Duoneb Q4 -advair Metabolic lactic acidosis - improving Acute renal failure- improving KARIME ERNANDEZ DO Jul 29, 2019 04:46
[2019-07-29] MEDS ORDERED: SODIUM BICARB 8.4% 50 MEQ/50 ML VIAL ONE (05:10)
[2019-07-29] MEDS ORDERED: FUROSEMIDE 40 MG/4 ML INJ (LASIX) ONE (05:10)
[2019-07-29] MEDS: POTASSIUM CL 10MEQ/50ML IVPB 50 ML IV SCH ×5 (05:24→08:17)
--- NOTE | 2019-07-29 07:26 | Diagnostic Imaging Report ---
INDICATION: Respiratory failure. Compared 07/28/2019 FINDINGS: There is bibasilar infiltrates or atelectasis, improved, resolved on the left and nearly resolved on the right. Air trapping and COPD superimposed chronic. No pneumothorax. IMPRESSION: 1. Improvements in basilar infiltrates or atelectasis. No adverse development. 2. Left subclavian catheter noted, cannot be seen to project beyond level of the azygos vein and could be directed into that structure. Dictated by: Dictated on workstation # [id number]
[2019-07-29] MEDS: morphine INJ 4 MG/ML 1 ML (VIAL/SYRINGE) IVP PRN ×2 (08:17→19:39)
[2019-07-29 08:18] LABS: ABG BASE EXCESS 1.7 MMOL/L (-2.5-2.5); ABG OXYGEN SATURATION 95 % (94-100); ABG PCO2 36 MMHG (35-45); ABG PH 7.46 (7.37-7.43); ABG PO2 75 MMHG (79-93); ABG TCO2 26.4 MMOL/L (21.0-31.0)
[2019-07-29 08:19] LABS: ALLENS TEST POSITIVE; INSPIRED O2 2.5; PATIENT TEMP 97.9; VENTILATOR NO
[2019-07-29] MEDS ORDERED: ENOXAPARIN 40 MG/0.4 ML (LOVENOX) SYR SC SCH (09:00)
--- NOTE | 2019-07-29 09:03 | Progress Note - Cardiology ---
Cardiology SOAP Progress Note Subjective: Sitting up in bed. C/O feeling very SOB this morning. C/O back pain, chronic. Family at the bedside x 1. Objective: I&O/Vital Signs 07/28/19 07/29/19 07/29/19 07/29/19 23:00 00:00 00:00 00:10 Temp 36.8 Pulse 122 118 Resp 15 11 B/P (MAP) 141/82 (101) 119/84 (96) Pulse Ox 95 94 97 O2 Delivery NIV Bilevel NIV Bilevel NIV Bilevel O2 Flow Rate 28.00 28.00 FiO2 28 07/29/19 07/29/19 07/29/19 07/29/19 00:54 01:00 02:00 02:50 Pulse 120 118 Resp 13 16 12 B/P (MAP) 139/88 (105) 106/79 (88) Pulse Ox 96 94 94 O2 Delivery NIV Bilevel NIV Bilevel O2 Flow Rate 28.00 28.00 28.00 07/29/19 07/29/19 07/29/19 07/29/19 03:00 04:00 04:00 04:00 Temp 36.2 Resp 14 21 B/P (MAP) 117/102 (107) 117/86 (96) Pulse Ox 94 94 94 O2 Delivery NIV Bilevel NIV Bilevel NIV Bilevel O2 Flow Rate 28.00 28.00 FiO2 28 07/29/19 07/29/19 07/29/19 07/29/19 05:00 06:00 07:00 07:00 Pulse 130 124 Resp 13 12 12 B/P (MAP) 108/79 (89) 101/78 (86) 104/76 (85) Pulse Ox 94 93 95 O2 Delivery NIV Bilevel NIV Bilevel NIV Bilevel O2 Flow Rate 28.00 28.00 28.00 07/29/19 07/29/19 07/29/19 07/29/19 07:18 07:45 08:00 09:00 Pulse 120 120 Resp 23 22 B/P (MAP) 146/86 (106) 103/77 (86) Pulse Ox 95 93 93 93 O2 Delivery Nasal Cannula Nasal Cannula NIV Bilevel NIV Bilevel O2 Flow Rate 2.50 3.00 28.00 28.00 07/29/19 00:00 Intake Total 250 ml Output Total 425 ml Balance -175 ml Weight (Pounds): 200 Weight (Ounces): 0.8 Weight (Calculated Kilograms): 90.221233 Constitutional: AAO x 3, well-developed, well-nourished Respiratory: chest expansion is symmetric, chest is bilaterally symmetric, rhonchi (scattered), other (fair air entry) Cardiovascular: regular rate-rhythm; No JVD; S1 and S2 Gastrointestional: No tender; soft, round Extremities: no lower extremity edema bilateral Neurologic/Psychiatric: grossly intact Skin: No rash on exposed areas, No ulcerations on exposed areas Results/Procedures: Labs Laboratory Tests 07/28/19 11:34: Glucometer 265H 07/28/19 20:45: Glucometer 267H 07/29/19 02:54: B-Type Natriuretic Peptide 178.3H 07/29/19 02:55: White Blood Count 7.7, Red Blood Count 3.60L, Hemoglobin 11.0L, Hematocrit 33L, Mean Corpuscular Volume 93, Mean Corpuscular Hemoglobin 31, Mean Corpuscular Hemoglobin Concent 33, Red Cell Distribution Width 16.6H, Platelet Count 129L, Mean Platelet Volume 11.0H, Neutrophils (%) (Auto) 92H, Lymphocytes (%) (Auto) 3L, Monocytes (%) (Auto) 5, Eosinophils (%) (Auto) 0, Basophils (%) (Auto) 0, Neutrophils # (Auto) 7.1, Lymphocytes # (Auto) 0.2L, Monocytes # (Auto) 0.4, Eo sinophils # (Auto) 0.0, Basophils # (Auto) 0.0, Sodium Level 137, Potassium Level 4.2, Chloride Level 107, Carbon Dioxide Level 18L, Anion Gap 12, Blood Urea Nitrogen 40H, Creatinine 0.77, Estimat Glomerular Filtration Rate > 60, BUN/Creatinine Ratio 52, Glucose Level 223H, Calcium Level 8.2L, Phosphorus Level 2.4, Magnesium Level 2.6H 07/29/19 07:55: Blood Gas Puncture Site RIGHT RADIAL, Blood Gas Patient Temperature 97.9, Arterial Blood pH 7.46H, Arterial Blood Partial Pressure CO2 36, Arterial Blood Partial Pressure O2 75L, Arterial Blood HCO3 25, Arterial Blood Total CO2 26.4, Arterial Blood Oxygen Saturation 95, Arterial Blood Base Excess 1.7, Radames Test POSITIVE, Blood Gas Ventilator Setting NO, Blood Gas Inspired Oxygen 2.5 Microbiology 07/26/19 Blood Culture - Preliminary, Resulted No growth 07/27/19 MRSA Screen - Final, Complete MRSA not isolated 07/26/19 Urine Culture - Final, Complete 3 or more isolates Laboratory Tests 07/27/19 11:34 07/28/19 03:06 07/29/19 02:55 A/P: Assessment: Paroxysmal atrial fibrillation with RVR (first documented on EKG of 07-27-19) - currently SR Echocardiogram of Jul 27, [address] Arevalo showed LVEF 55-65%. PASP 20-25mmHg. Mild TR. Acute respiratory failure with acute exacerbation of COPD - management per pulmonary services Pre-renal azotemia, likely due to intravasc vol depletion due to diuretics Anxiety Metabolic acidosis with acute respiratory failure - improved Hx of Lung CA- followed by Dr. Birmingham. Acute renal failure - resolved H/O tobaccoism Obesity Chronic back pain Plan: Episode of PAF documented on EKG as noted above Start OAC with Eliquis for stroke prophylaxis Start Cardizem CD 180mg daily for rate control Monitor lab closely Treatment of COPD is with pulmonary/medical services Physician Assessment Physician Assessment Short of breath No cp or palp or syncope Lungs: gen dec air entry, prolonged exp phase Cor: reg Ext: no c/c; mod pitting and nonpitting edema A&R * As documented in our note above that I updated (italics) and as noted below * I discussed her cardiac issues with her and her son * Long-acting dilt for vent rate control * OAC for stroke prophylaxis * Monitor labs closely CACHORRO SHERMAN Jul 29, 2019 09:03 CARLOS ENRIQUE CAMPBELL MD [facility] Jul 29, 2019 10:11
[2019-07-29] MEDS ORDERED: DILTIAZEM 180 MG (CARDIZEM CD) CAP PO NR (09:30)
[2019-07-29] MEDS ORDERED: APIXABAN 5 MG (ELIQUIS) TABLET PO ONE (09:30)
[2019-07-29] MEDS: meTOprolol TARTRATE 25 MG (LOPRESSOR) TABLET PO SCH ×2 (10:21→20:21)
[2019-07-29] MEDS: LIDOCAINE 4% (SALONPAS) PATCH TOP SCH (10:22)
[2019-07-29] MEDS: risperiDONE 1 MG (RisperDAL) TAB PO SCH ×2 (10:22→20:21)
[2019-07-29] MEDS ORDERED: CEFEPIME INJECTION 2,000 MG in WATER (STERILE) FOR INJECTION 20 ML IV SCH (11:00)
--- NOTE | 2019-07-29 11:05 | Progress Note - Hospitalist ---
SAMMIE BRANDON MED STUDENT 07/29/19 1105: Subjective HPI/CC On Admission Date Seen by Provider: Jul 29, 2019 Time Seen by Provider: 07:55 CC: SOB HPI: This is a 69yoWF clinic pt of [facility] and Dr. Birmingham with a recent diagnosis of lung cancer former smoker who just quit recently who presented to the ER found to be in exacerbation of COPD who remains a DNR do no intubate but ABG reveals respiratory acidosis improved on biPAP, still belly breathing and now has experienced AF with RVR of heart rate of 170s and cardiology has been consulted and will manage that conservatively. Subjective/Events-last exam * More awake and alert than yesterday, she is still in pain and still has labored breathing, although she reports her breathing is better than before * used BiPAP, minimal FiO2, starting trial on nasal cannula per Respiratory * platelet count and MPV increased * Remains anemic w/ increased neutrophils and monocytes, decreased lymphocytes * Decreased CO2, increased Mg, increased BNP * Pedal edema on exam Review of Systems General: No Chills HEENT: No Sinus Congestion Pulmonary: Dyspnea Cardiovascular: Edema; No: Chest Pain Gastrointestinal: Nausea Genitourinary: No Dysuria, No Frequency Musculoskeletal: back pain Neurological: No: Numbness Focused Exam Lactate Level 07/26/19 22:08: Lactic Acid Level 3.58*H 07/27/19 00:20: Lactic Acid Level 1.89 07/27/19 11:34: Lactic Acid Level 1.35 Objective Exam Vital Signs Vital Signs Date Time Temp Pulse Resp B/P (MAP) Pulse Ox O2 Delivery O2 Flow Rate FiO2 07/29/19 10:47 93 Nasal Cannula 3.00 07/29/19 10:00 116 19 145/78 (100) 07/29/19 04:00 36.2 07/29/19 04:00 28 Capillary Refill : Less Than 3 Seconds General Appearance: Chronically ill, Mild Distress, Obese Respiratory: No Respiratory Distress, Accessory Muscle Use Cardiovascular: Regular Rate, Rhythm, No Gallop, No Murmur, Normal Peripheral Pulses Gastrointestinal: Normal Bowel Sounds Extremity: No Calf Tenderness, Pedal Edema Neurologic/Psychiatric: Alert (eyes closed and talking, but seems like she would fall asleep while we were speaking intermittently), Oriented x3 Results/Procedures Lab Laboratory Tests 07/29/19 02:55 Patient resulted labs reviewed. Assessment/Plan Assessment and Plan Assess & Plan/Chief Complaint Assessment: 1. Back pain, T6 compression 2. Respiratory failure, possible COPD exacerbation 3. Afib w/ RVR 4. Lung cancer Plan: 1. Continue analgesia to manage back pain, monitor GI function 2. Consider evaluating for treatment of T6 compression 3. Continue cefepime and methylprednisolone, monitor pulmonary function 4. Continue monitoring for afib, continue cardizem Clinical Quality Measures DVT/VTE Risk/Contraindication: Risk Factor Score Per Nursin RFS Level Per Nursing on Admit: 4+=Very High MELLY HEIN DO 07/29/192041: Subjective Subjective/Events-last exam Nasal cannula now at 3 liters Overall improved BNP is high Off biPAP PT and OT Son at bedside asking multiple questions repeatedly Overall prognosis is extremely poor Review of Systems General: Fatigue Pulmonary: Dyspnea Musculoskeletal: back pain Objective Exam General Appearance: WD/WN, Anxious, Chronically ill, Mild Distress Respiratory: Lungs Clear, Normal Breath Sounds, Decreased Breath Sounds Cardiovascular: Regular Rate, Rhythm Neurologic/Psychiatric: Alert, Oriented x3, No Motor/Sensory Deficits, Normal Mood/Affect Assessment/Plan Assessment and Plan Assess & Plan/Chief Complaint Pain control O2 Prognosis guarded Diagnosis/Problems Diagnosis/Problems (1) Acute on chronic respiratory failure Status: Acute Qualifiers: Qualified Codes: J96.20 - Acute and chronic respiratory failure, unspecified whether with hypoxia or hypercapnia (2) Compression fracture of T6 vertebra (3) Lung cancer (4) COPD (chronic obstructive pulmonary disease) (5) Uncontrolled hypertension Status: Acute (6) Elevated troponin Status: Acute (7) Anxiety Status: Acute Supervisory-Addendum Brief Verification & Attestation Participated in pt care: history, MDM, physical Personally performed: exam, history, MDM, supervision of care Care discussed with: Medical Student Procedures: n/a Results interpretation: Verified all documentation Verification and Attestation of Medical Student E/M Service A medical student performed and documented this service in my presence. I reviewed and verified all information documented by the medical student and made modifications to such information, when appropriate. I personally performed the physical exam and medical decision making. Melly Hein, Jul 29, 2019,20:42 SAMMIE BRANDON MED STUDENT Jul 29, 2019 11:05 MELLY HEIN DO Jul 29, 2019 20:42
[2019-07-29] MEDS: oxyCODONE/APAP 10/325MG (PERCOCET 10) TABLET PO PRN (12:09)
[2019-07-29] MEDS: CEFEPIME INJECTION 2,000 MG in WATER (STERILE) FOR INJECTION 20 ML IV SCH (12:53)
--- NOTE | 2019-07-29 13:14 | NUR ---
Pt transferred to room 410 via bed. Pt mumbling and asking multiple questions but in NAD. Report given to DAGO Adhikari. Pts son, Caleb, notified via telephone of transfer and new room number per his request. All personal belongings sent with patient.
--- NOTE | 2019-07-29 15:24 | Physical Therapy Progress Note ---
Therapy Progress Note Patient and her son would prefer to hold therapy until tomorrow. Patient is very confused and has very labored breathing and intractable back pain. Will try back tomorrow. ELSIE GONZALEZ PT Jul 29, 2019 15:24
--- NOTE | 2019-07-29 15:29 | Occ Therapy Progress Note ---
Therapy Progress Note Order received for OT eval and treat. Chart review completed. Per PT, pt declining to participate in any therapy today secondary to pain. Will continue to follow and complete evaluation as pt tolerates. FLORA NICHOLSON OT Jul 29, 2019 15:29
--- NOTE | 2019-07-29 15:47 | NUR ---
[facility]. Pt lives alone in [place]. Pt's son is with two children and states he lives "close". Son has lots of questions and is concerned about her ability to manage alone without extended rehab services. Son and pt working with Physical Therapist. will follow to assist with continual care plans.
[2019-07-29] MEDS: KETOROLAC 30 MG/ML VIAL IVP PRN (18:55)
[2019-07-29] MEDS: APIXABAN 5 MG (ELIQUIS) TABLET PO SCH (20:21)
[2019-07-30] VITALS (22 sets, daily range): BP systolic 97–145; BP diastolic 65–116
[2019-07-30] MEDS: oxyCODONE/APAP 10/325MG (PERCOCET 10) TABLET PO PRN ×2 (00:11→09:56)
[2019-07-30] MEDS: HALOPERIDOL 5 MG/ML (HALDOL) AMP IV PRN ×2 (01:33→04:58)
[2019-07-30] MEDS: morphine INJ 4 MG/ML 1 ML (VIAL/SYRINGE) IVP PRN ×5 (02:17→22:24)
[2019-07-30] MEDS: PATCH REMOVAL TP SCH ×2 (02:18→21:00)
[2019-07-30] MEDS: RT-ALBUTEROL/IPRATROPIUM 3 ML (DUONEB) VIAL INH SCH ×6 (02:32→23:43)
--- NOTE | 2019-07-30 03:50 | NUR ---
pt refused bipap throughout the night, this nurse and RT attempted multiple times to educate pt the important of the bipap. Pt was put on 3L high flow NC, O2 stat at 95%. pt increasingly confused, labored pursed-lip breathing, skin color dusky. pt urine output low, generalized edema. Dr. Blackwood notified. ordered to transfer to ICU
--- NOTE | 2019-07-30 04:02 | NUR ---
Pt and belongings to CU[facility], monitors attached to pt, bedside report received from DAGO Milton. Pt on 3L hi-jose cannula, VSS, see interventions. Pt mumbling, confused, drowsy.
[2019-07-30 04:13] LABS: ABG BASE EXCESS 3.4 MMOL/L (-2.5-2.5); ABG OXYGEN SATURATION 95 % (94-100); ABG PCO2 38 MMHG (35-45); ABG PH 7.46 (7.37-7.43); ABG PO2 94 MMHG (79-93); ABG TCO2 28.5 MMOL/L (21.0-31.0)
[2019-07-30 04:17] LABS: ALLENS TEST POSITIVE; INSPIRED O2 28% NC@3L; PATIENT TEMP 35.9; VENTILATOR NO
--- NOTE | 2019-07-30 04:39 | Pulmonary Progress Note ---
Subjective Time Seen by a Provider: 05:35 Subjective/Events-last exam Pt transferred to ICU secondary to uncontrolled agitation with Tele monitor in place. Pt is only on 3 liters of oxygen via NC. Pt is agitated hitting bed rail. When I ask her what is wrong she says "everything". Sepsis Event Evaluation Height, Weight, BMI Height: 5'5.00" Weight: 200lbs. 0.8oz. 90.803000kq; 32.00 BMI Method: Focused Exam Lactate Level 07/27/19 11:34: Lactic Acid Level 1.35 Exam Exam Vital Signs Date Time Temp Pulse Resp B/P (MAP) Pulse Ox O2 Delivery O2 Flow Rate FiO2 07/30/19 04:08 35.9 112 18 103/71 (82) 100 High Flow N/C 3.00 07/30/19 02:32 92 Nasal Cannula 3.00 07/30/19 01:00 110 07/29/19 22:51 112 16 94 28.00 07/29/19 20:32 36.2 117 21 124/81 (95) 97 NIV Bilevel 28.00 07/29/19 19:24 NIV Bilevel 28.00 07/29/19 19:24 122 26 91 28.00 07/29/19 19:13 90 Nasal Cannula 5.00 07/29/19 19:00 110 07/29/19 16:00 36.2 115 22 121/83 (96) 100 High Flow N/C 3.50 07/29/19 13:00 36.4 124 22 126/76 (93) 93 High Flow N/C 3.50 07/29/19 12:37 130 07/29/19 12:00 37.1 124 16 168/92 (117) 94 07/29/19 12:00 95 Nasal Cannula 3.00 07/29/19 11:00 116 18 151/97 (115) 96 NIV Bilevel 28.00 07/29/19 10:47 93 Nasal Cannula 3.00 07/29/19 10:00 116 19 145/78 (100) 91 NIV Bilevel 28.00 07/29/19 09:00 120 22 103/77 (86) 93 NIV Bilevel 28.00 07/29/19 08:00 120 23 146/86 (106) 93 NIV Bilevel 28.00 07/29/19 07:45 93 Nasal Cannula 3.00 07/29/19 07:18 95 Nasal Cannula 2.50 07/29/19 07:00 124 12 104/76 (85) 95 NIV Bilevel 28.00 07/29/19 07:00 130 07/29/19 06:00 12 101/78 (86) 93 NIV Bilevel 28.00 07/29/19 05:00 13 108/79 (89) 94 NIV Bilevel 28.00 I & O 07/30/19 07:00 Intake Total 1220 ml Output Total 1150 ml Balance 70 ml Height & Weight Height: 5'5.00" Weight: 200lbs. 0.8oz. 90.272158ih; 32.00 BMI Method: General Appearance: WD/WN, Anxious, Chronically ill, Moderate Distress HEENT: PERRL/EOMI, TMs Normal Neck: Full Range of Motion, Normal Inspection Respiratory: Lungs Clear, Normal Breath Sounds, Accessory Muscle Use, Decreased Breath Sounds Cardiovascular: Regular Rate, Rhythm Capillary Refill: Less Than 3 Seconds Peripheral Pulses: 2+ Radial Pulses (L) Gastrointestinal: non tender, soft Extremity: No Calf Tenderness, Pedal Edema Neurologic/Psychiatric: Alert, No Motor/Sensory Deficits, Normal Mood/Affect, Disoriented (hitting bedrails) Skin: Normal Color, Warm/Dry Lymphatic: No Adenopathy Results Lab Laboratory Tests 07/29/19 02:55 Assessment/Plan Assessment/Plan Acute respiratory distress with sinus tach -Currently on BiPAP -Pt refused BiPAP last night -Currently on 3 liter NC with Sp02 of 99% -Solumedrol - D/C secondary to acute psychosis Psychosis - probably acute on chronic -CHECK CT OF BRAIN WITH/WITHOUT CONTRAST TO R/O METS. -Risperadol, add PO Geodon -PRN Haldol -- Change to Geodon IM PRN -Morphine PRN -Ativan PRN -Will add end tidal C02 monitoring stage IA non small cell lung carcinoma. -Oncology following Acute pain with compression fracture -Pain control -Possible kyphoplasty once pt is stable Sinus tach- probably secondary to psychosis -Start LR at 30cc/hr COPDAE -Duoneb Q4 -advair Metabolic lactic acidosis - improving Acute renal failure- improving KARIME ERNANDEZ DO Jul 30, 2019 04:39
[2019-07-30 04:56] LABS: BASOPHILS % (AUTO) 0 % (0-10); EOSINOPHILS % (AUTO) 0 % (0-10); HEMATOCRIT 32 % (35-52); HEMOGLOBIN 10.4 G/DL (11.5-16.0); LYMPHOCYTES # (AUTO) 0.3 X 10^3 (1.0-4.0); LYMPHOCYTES % (AUTO) 4 % (12-44); MEAN CORPUSCULAR HEMOGLOBIN 31 PG (25-34); MEAN CORPUSCULAR HGB CONC 33 G/DL (32-36); MEAN CORPUSCULAR VOLUME 94 FL (80-99); MONOCYTES # (AUTO) 0.5 X 10^3 (0.0-1.0); MONOCYTES % (AUTO) 8 % (0-12); NEUTROPHILS # (AUTO) 5.7 X 10^3 (1.8-7.8); NEUTROPHILS % (AUTO) 87 % (42-75); PLATELET COUNT 141 10^3/uL (130-400); RED CELL DISTRIBUTION WIDTH 16.8 % (10.0-14.5); WHITE BLOOD COUNT 6.6 10^3/uL (4.3-11.0)
--- NOTE | 2019-07-30 05:05 | NUR ---
pt transferred to ICU 9 at 0402, pt son called at 0505
[2019-07-30 05:15] LABS: BUN/CREATININE RATIO 49; CALCIUM 8.4 MG/DL (8.5-10.1); CARBON DIOXIDE 24 MMOL/L (21-32); CHLORIDE 103 MMOL/L (98-107); CREATININE SERUM 0.72 MG/DL (0.60-1.30); GFR ESTIMATED > 60; GLUCOSE 185 MG/DL (70-105); PHOSPHORUS 1.7 MG/DL (2.3-4.7); SODIUM 137 MMOL/L (135-145)
[2019-07-30] MEDS ORDERED: morphine INJ 4 MG/ML 1 ML (VIAL/SYRINGE) IVP PRN (05:15)
[2019-07-30] MEDS ORDERED: ZIPRASIDONE 20 MG INJ (GEODON) VIAL IM ONE (05:28)
[2019-07-30] MEDS ORDERED: ZIPRASIDONE 20 MG INJ (GEODON) VIAL IM PRN (05:30)
[2019-07-30] MEDS ORDERED: WATER (STERILE) FOR INJECTION 0 ML ONE (05:31)
[2019-07-30] MEDS ORDERED: WATER (STERILE) FOR INJECTION 10 ML ONE ×2 (05:32→19:27)
[2019-07-30] MEDS: ZIPRASIDONE 20 MG INJ (GEODON) VIAL IM PRN ×2 (05:46→19:30)
--- NOTE | 2019-07-30 06:08 | NUR ---
1950- upon shift change pt was anxious, wanting to take her bipap off and asked PCT to call her son. Pt's son sounded a bit upset, and when this nurse explained that pt continues to take bipap off, the son states " is there anything you can give her to make her sleep? " this nurse responded that nothing can be given at this moment, but will attempt to put bipap back on. This nurse was able to calm pt down and put bipap on. 2323- at this time pt has removed bipap several times since shift change, and this nurse attempted to explain to pt the importance of the bipap multiple times. prn ativan was given per eMAR, pt still anxious and restless. RT was called at this time. RT educated pt about the bipap, pt said she will wear the mask if her son is here. this nurse called pt son to explain the situation, he states," if she wont wear the mask, try to put her on high flow oxygen, put it on high so that she can feel the air in her nose." after pt spoke to her son , and some more education from RT, pt agreed to bipap. however pt was still a bit restless, and took bipap off shortly after. 3L high flow O2 NC was put on pt at this time. pt O2 stat at 94%. Pt reports back pain, this nurse administered oxycodone per eMAR. pt wanted to sit up straight in bed, this nurse and RT repositioned pt in bed. pt still presents with labored breathing. 0133- pt continues to have episodes of restlessness, attempts to get out of bed, stating she wants to go. haldol was given at this time. pt's breathing continues to be labored, pt becomes increasingly confused. this nurse attempts to put bipap on, pt continues to refuse.
[2019-07-30] MEDS: inSUlin ASPART (NovoLOG) 1 UNIT/0.01 ML (CHARGE PER UNIT) SC SCH ×4 (06:24→22:19)
[2019-07-30] MEDS: LACTATED RINGERS 1,000 ML IV SCH (06:24)
[2019-07-30] MEDS: LORazepam INJ 2 MG/ML (ATIVAN) VIAL IVP PRN ×4 (07:19→22:24)
[2019-07-30] MEDS: ZIPRASIDONE 20 MG (GEODON) CAP PO SCH ×2 (08:00→17:21)
--- NOTE | 2019-07-30 08:07 | Diagnostic Imaging Report ---
INDICATION: Decreased level of consciousness. TECHNIQUE: Single view chest 4:50 AM. CORRELATION STUDY: 07/29/2019 FINDINGS: Heart size and mediastinum are stable. Left-sided Sihela-r-Fguv catheter unchanged. Positioning into the azygos vein is not excluded. Areas of atelectasis or infiltrate at both lung bases are present, stable. IMPRESSION: 1. Bibasilar areas of atelectasis and/or infiltrate appear generally stable. 2. Suspect azygos positioning of the tip of the Msbcpu-o-Vscu catheter. Dictated by: Dictated on workstation # [id number]
[2019-07-30] MEDS ORDERED: NS 100 ML (IVPB) BAG IV ONE (08:45)
[2019-07-30] MEDS ORDERED: IOHEXOL 350 MG/ML 100 ML (OMNIPAQUE 350) VIAL IV ONE (08:45)
[2019-07-30] MEDS ORDERED: HOLD METFORMIN - RECEIVED CONTRAST 20 ML VIAL IV SCH (08:45)
[2019-07-30] MEDS ORDERED: DILTIAZEM 180 MG (CARDIZEM CD) CAP PO SCH (09:00)
--- NOTE | 2019-07-30 09:12 | Diagnostic Imaging Report ---
CLINICAL INDICATION: Patient with psychosis. Rule out brain metastasis. Exam: Axial CT scan of the brain without and with 80 mL of IV contrast. IV contrast with coronal and sagittal reformatted images. Auto Exposure Controls were utilized during the CT exam to meet ALARA standards for radiation dose reduction. Comparison: None. Findings: There is skull streak artifact which obscures portions of the brainstem, posterior fossa, posterior to brain near the skull. There is no evidence of acute cerebral infarct, intracranial hemorrhage, or gross mass effect. There is no abnormal IV contrast enhancement. The brain parenchymal volume appears appropriate for patient's age. There is normal talley-white matter distinction. There is no significant midline shift or herniation. The [place] vascular structures show no gross abnormality as visualized. There is no evidence of hydrocephalus. The basal cisterns are unremarkable. The skull, extracranial soft tissue, and orbits are unremarkable. There is mild mucosal thickening involving the ethmoid sinus and right maxillary sinus. Temporal bones show no significant abnormality. Impression: Mild paranasal sinus disease. Otherwise unremarkable CT scan of the brain for age. There is no abnormal IV contrast enhancement. Dictated by: Dictated on workstation # [id number]
--- NOTE | 2019-07-30 09:51 | Physical Therapy Evaluation ---
PT Evaluation-General Medical Diagnosis Admission Date Jul 26, 2019 at 23:40 Medical Diagnosis: COPD; [facility] Onset Date: Jul 26, 2019 Therapy Diagnosis Therapy Diagnosis: weakness Height/Weight Height (Feet): 5 Height (Inches): 5.00 Weight (Pounds): 200 Weight (Ounces): 0.8 Precautions Precautions/Isolations: Fall Prevention, Standard Precautions Referral Physician: Jaison Reason for Referral: Evaluation/Treatment Medical History Additional Medical History A fib, RVR, hyponatremia, metabolic acidosis Current History COPD exac; stage I lung CA Reviewed History: Yes Social History PLOF and set up unknown, pt poor historian at this time. Prior Prior Level of Function SCALE: Activities may be completed with or without assistive devices. 2-Lyewsgjfbr-pvexrhf completes the activity by him/herself with no assistance from a helper. 5-Set-up or Clean-up Assistance-helper sets up or cleans up; patient completes activity. Otoe assists only prior to or following the activity. 4-Supervision or Touching Assistance-helper provides verbal cues and/or touching/steadying and/or contact guard assistance as patient completes activity. Assistance may be provided throughout the activity or intermittently. 3-Partial/Moderate Assistance-helper does LESS THAN HALF the effort. Otoe lifts, holds or supports trunk or limbs, but provides less than half the effort. 2-Substantial/Maximal Assistance-helper does MORE THAN HALF the effort. Otoe lifts or holds trunk or limbs and provides more than half the effort. 7-Cdawwctzn-xiikrp does ALL the effort. Patient does none of the effort to complete the activity. Or, the assistance of 2 or more helpers is required for the patient to complete the activity. If activity was not attempted, code reason: 7-Patient Refused. 9-Not Applicable-not attempted and the patient did not perform the activity before the current illness, exacerbation or injury. 10-Not Attempted due to Environmental Limitations-(lack of equipment, weather restraints, etc.). 88-Not Attempted due to Medical Conditions or Safety Concerns. unknown at this time. PT Evaluation-Current Subjective Pt with little communication or verbalization. Objective ICU--muliple attachments ROM/Strength ROM Lower Extremities AAROM/PROM WFL Transfers Roll Left to Right (QC): 1 dependent for all bed mobility to include rolling and scooting; little to no initiation from pt to assist. Assessment/Needs Pt transferred from 4th to ICU last night. Dependent for all mobillity at this time. Pt in bed; unsafe to mobilize out of bed due to decreased alertness. Rehab Potential: Guarded PT Residential Goals Residential Goals PT Caddymaster Goals Time Frame: Aug 05, 2019 Sit to Lying (QC): 4 Lying-Sitting on Side/Bed(QC): 4 Sit to Stand (QC): 4 Roll Left to Right (QC): 4 Chair/Jeb-nr-Spkdo Xfer(QC): 4 Walk 50ft with 2 Turns (QC): 4 PT Plan Problem List Problem List: Activity Tolerance, Functional Strength, Safety, Balance, Gait, Transfer, Bed Mobility Treatment/Plan Treatment Plan: Continue Plan of Care Treatment Plan: Bed Mobility, Education, Functional Activity Sravani, Functional Strength, Gait, Safety, Therapeutic Exercise, Transfers Estimated Hrs Per Day: .5 hour per day Patient and/or Family Agrees t: Yes Time/GCodes Time In: 912 Time Out: 930 Total Billed Treatment Time: 18 Total Billed Treatment visit EvM 18 CARINA TOVAR PT Jul 30, 2019 09:51
[2019-07-30] MEDS: KETOROLAC 30 MG/ML VIAL IVP PRN ×2 (09:55→16:10)
[2019-07-30] MEDS: methylPREDNISolone 40 MG/ML (Solu-MEDROL) VIAL IVP SCH (09:55)
[2019-07-30] MEDS: meTOprolol TARTRATE 25 MG (LOPRESSOR) TABLET PO SCH ×3 (09:56→21:00)
[2019-07-30] MEDS: risperiDONE 1 MG (RisperDAL) TAB PO SCH ×3 (09:56→21:00)
[2019-07-30] MEDS: APIXABAN 5 MG (ELIQUIS) TABLET PO SCH ×3 (09:56→21:00)
[2019-07-30] MEDS: LIDOCAINE 4% (SALONPAS) PATCH TOP SCH (09:56)
--- NOTE | 2019-07-30 10:45 | NUR ---
PT HAS BEEN YELLING OUT ALL AM, ORAL PAIN MEDICINE'S ATTEMPTED TO BE GIVEN ALONG WITH MORNING MEDS. PT UNABLE TO TAKE MEDICATIONS. DR CAMPBELL IN TO SEE PATIENT, NEW VERBAL ORDERS RECEIVED TO CONSULT ORTHO.
--- NOTE | 2019-07-30 10:56 | Progress Note - Cardiology ---
Cardiology SOAP Progress Note Subjective: Severe back pain Shortness of breath as before Does not report other symptoms Objective: I&O/Vital Signs 07/30/19 07/30/19 07/30/19 07/30/19 01:00 02:32 04:06 04:08 Temp 35.9 Pulse 110 112 Resp 18 B/P (MAP) 103/71 (82) Pulse Ox 92 100 100 O2 Delivery Nasal Cannula High Flow N/C High Flow N/C O2 Flow Rate 3.00 3.00 3.00 07/30/19 07/30/19 07/30/19 07/30/19 04:30 05:15 06:00 07:00 Pulse 106 112 110 111 Resp 14 13 17 17 B/P (MAP) 107/72 (84) 111/79 (90) 104/68 (80) 121/71 (88) Pulse Ox 100 100 100 97 O2 Delivery High Flow N/C High Flow N/C High Flow N/C High Flow N/C O2 Flow Rate 3.00 3.00 3.00 3.00 07/30/19 07/30/19 07/30/19 07/30/19 07:00 07:26 08:00 09:00 Pulse 111 116 109 B/P (MAP) 131/89 (103) Pulse Ox 100 100 98 O2 Delivery Nasal Cannula High Flow N/C High Flow N/C O2 Flow Rate 3.00 3.00 3.00 07/30/19 07/30/19 10:00 10:25 Pulse 115 Resp 20 B/P (MAP) 136/92 (107) Pulse Ox 97 O2 Delivery High Flow N/C Nasal Cannula O2 Flow Rate 3.00 3.00 07/30/19 00:00 Intake Total 970 ml Output Total 500 ml Balance 470 ml Weight (Pounds): 200 Weight (Ounces): 0.8 Weight (Calculated Kilograms): 90.130026 Constitutional: AAO x 3, well-developed, well-nourished Respiratory: chest expansion is symmetric, chest is bilaterally symmetric, rhonchi (scattered), other (fair air entry) Cardiovascular: regular rate-rhythm; No JVD; S1 and S2 Gastrointestional: No tender; soft, round Extremities: no lower extremity edema bilateral Neurologic/Psychiatric: grossly intact Skin: No rash on exposed areas, No ulcerations on exposed areas Results/Procedures: Labs Laboratory Tests 07/29/19 11:41: Glucometer 264H 07/29/19 15:57: Glucometer 260H 07/29/19 20:54: Glucometer 220H 07/30/19 04:05: Blood Gas Puncture Site RIGHT RADIAL, Blood Gas Patient Temperature 35.9, Arterial Blood pH 7.46H, Arterial Blood Partial Pressure CO2 38, Arterial Blood Partial Pressure O2 94H, Arterial Blood HCO3 27, Arterial Blood Total CO2 28.5, Arterial Blood Oxygen Saturation 95, Arterial Blood Base Excess 3.4H, Radames Test POSITIVE, Blood Gas Ventilator Setting NO, Blood Gas Inspired Oxygen 28% NC@3L 07/30/19 04:44: B-Type Natriuretic Peptide 99.0 07/30/19 04:49: White Blood Count 6.6, Red Blood Count 3.39L, Hemoglobin 10.4L, Hematocrit 32L, Mean Corpuscular Volume 94, Mean Corpuscular Hemoglobin 31, Mean Corpuscular Hemoglobin Concent 33, Red Cell Distribution Width 16.8H, Platelet Count 141, Mean Platelet Volume 10.0, Neutrophils (%) (Auto) 87H, Lymphocytes (%) (Auto) 4L , Monocytes (%) (Auto) 8, Eosinophils (%) (Auto) 0, Basophils (%) (Auto) 0, Neutrophils # (Auto) 5.7, Lymphocytes # (Auto) 0.3L, Monocytes # (Auto) 0.5, Eosinophils # (Auto) 0.0, Basophils # (Auto) 0.0, Sodium Level 137, Potassium Level 4.0, Chloride Level 103, Carbon Dioxide Level 24, Anion Gap 10, Blood Urea Nitrogen 35H, Creatinine 0.72, Estimat Glomerular Filtration Rate > 60, BUN/Creatinine Ratio 49, Glucose Level 185H, Calcium Level 8.4L, Phosphorus Level 1.7L, Magnesium Level 2.0 07/30/19 10:24: Glucometer 172H Microbiology 07/26/19 Blood Culture - Preliminary, Resulted No growth 07/27/19 MRSA Screen - Final, Complete MRSA not isolated 07/26/19 Urine Culture - Final, Complete 3 or more isolates Laboratory Tests 07/29/19 02:55 07/30/19 04:49 A/P: Assessment: Paroxysmal atrial fibrillation with RVR (first documented on EKG of 07-27-19) - currently SR Echocardiogram of Jul 27, [address] Arevalo showed LVEF 55-65%. PASP 20-25mmHg. Mild TR. Acute respiratory failure with acute exacerbation of COPD - management per pulmonary services Pre-renal azotemia, likely due to intravasc vol depletion due to diuretics Anxiety Metabolic acidosis with acute respiratory failure - improved Hx of Lung CA- followed by Dr. Birmingham. Acute renal failure - resolved H/O tobaccoism Obesity Chronic back pain Plan: * Complex management due to multiple comorbidities * Communication difficult with patient on account of her marked back pain. Her son was by her bedside. He reported a h/o multiple recent compression fractures. Orthopedic consult requested * Continue BB and CCB for ventricular rate control during PAF * Continue OAC for stroke prophylaxis * Monitor lab closely * Treatment of COPD and resp failure is with Pulmonary and Med CARLOS ENRIQUE Figueroa MD FACP FAC CCDS Jul 30, 2019 10:56
[2019-07-30] MEDS: CEFEPIME INJECTION 2,000 MG in WATER (STERILE) FOR INJECTION 20 ML IV SCH ×2 (11:12→23:42)
--- NOTE | 2019-07-30 11:25 | Consultation ---
History of Present Illness History of Present Illness Patient Consulted On(oliverio/time) 07/30/19 11:17 Date Seen by Provider: Jul 30, 2019 Time Seen by Provider: 11:17 Reason for Visit: Afib with RVR History of Present Illness Patient admitted to [facility], through ER on 07/26/19, due to back pain, COPD, and Afib with RVR. Patient's son states that the patient did not fall, and began complaining of pain on 07/25/19. Patient has continued to experience uncontrolled back pain, and has been moved to ICU to to continuous narcotic use and respiratory issues. Patient underwent a chest CT which revealed a new T6 compression fracture without retropulsion. Stable lung mass was also identified. Prior imaging was reviewed which revealed a new T8 and T9 compression fracture on 01/13/19, a new T7 compression fracture on 04/07/19. These 3 compression fractures were also the only once present on a 06/30/[address] of the chest performed during this hospitalization is the first to reveal a new T6 compression fracture, No aortic aneurysm present. No MRI has been performed. The patient has been yelling out in pain for the last day. She has developed psychosis since her admission. Allergies and Home Medications Allergies Coded Allergies: levofloxacin (Verified Allergy, Severe, TACHYCARDIA, 11/12/18) Penicillins (Verified Allergy, Unknown, FAMILY ALLERGY, 11/12/18) Uncoded Allergies: SURGICAL STEEL (Allergy, Intermediate, RASH, 05/10/18) Home Medications Albuterol Sulfate 18 Gm Hfa.aer.ad, 2 PUFF INH Q6H PRN for SHORTNESS OF BREATH, (Reported) Cetirizine HCl 10 Mg Tablet, 10 MG PO DAILY, (Reported) Cholecalciferol (Vitamin D3) 2,000 Unit Capsule, 2,000 UNIT PO DAILY, (Reported) Diltiazem HCl 240 Mg Cap.er.24h, 240 MG PO DAILY, (Reported) Fluticasone Propionate 16 Gm [place].susp, 1 SPRAY NS DAILY, (Reported) Lutein 10 Mg Tablet, 10 MG PO DAILY, (Reported) Metformin HCl 500 Mg Tablet, 500 MG PO BID, (Reported) Methimazole 5 Mg Tablet, 5 MG PO DAILY, (Reported) Metoprolol Tartrate 25 Mg Tablet, 25 MG PO BID, (Reported) Mometasone/Formoterol 13 Gm Hfa.aer.ad, 2 PUFF IH BID, (Reported) Montelukast Sodium 10 Mg Tablet, 10 MG PO DAILY, (Reported) Multivitamin 1 Each Tablet, 1 TAB PO DAILY, (Reported) Tiotropium [place] 1 Inh Aerp, 1 CAP IH DAILY, (Reported) Patient Home Medication List Home Medication List Reviewed: Yes Past Cyarnez-Ikqwxw-Uwyztt Hx Past Med/Social Hx: Reviewed Nursing Past Med/Soc Hx, Reviewed and Corrections made Patient Social History Alcohol Use: Occasionally Uses Recreational Drug Use: No Smoking Status: Former Smoker (1 10/20 PPD, BEGAN AT AGE 15, QUIT AT AGE 43) Type Used: Cigarettes Former Smoker, Quit: Oct 19, 1992 Recent Foreign Travel: No Contact w/Someone Who Travel: No Recent Infectious Disease Expo: No Recent Hopitalizations: No Physical Abuse: No Sexual Abuse: No Immunizations Up To Date Tetanus Booster (TDap): Unknown Date of Pneumonia Vaccine: Jul 26, 2018 Date of Influenza Vaccine: Jul 26, 2018 Seasonal Allergies Seasonal Allergies: Yes Past Medical History Surgeries: Yes (ANTERIOR REPAIR, POWER PORT PLACEMENT LEFT CHEST; BRONCHOSCOPY; REMOVAL OF BENIGN MASS FROM LEFT 4TH FINGER--BENIGN VARIX WITH THROMBUS 10/2018) Bladder Surgery, Gallbladder, Hysterectomy Respiratory: Yes (RT LUNG MASS/LUNG CANCER, O2 6L) Pneumonia, Chronic Bronchitis, COPD Currently Using CPAP: No Currently Using BIPAP: No Cardiac: Yes Chronic Edema/Swelling, Hypertension Neurological: No : No 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 Disorders: No Female 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 Disorders: Denies NURSE OBGYN History: Hysterectomy, Menopausal Sexually Transmitted Disease: No HIV/AIDS: No Genitourinary: No Gastrointestinal: No Musculoskeletal: Yes Arthritis, Chronic Back Pain Endocrine: Yes (THYROID ISSUES--ON METHIMAZOLE) HEENT: Yes (GLASSES) Loss of Vision: Bilateral Hearing Impairment: Denies Cancer: Yes Lung Did You Recieve Any Treatments: Yes What Type of Treatment Did You: Chemotherapy, Radiation Psychosocial: Yes (RELATED TO MEDICAL ISSUES) Anxiety Integumentary: No Blood Disorders: No Adverse Reaction/Blood Tranf: No (N/A) Family Medical History No Pertinent Family Hx Review of Systems-General Respiratory: cough, short of breath Cardiovascular: No chest pain Musculoskeletal: back pain Psychiatric/Neurological: Denies Weakness Other Review of systems gathered from family and chart review, due to patient's inability to provide adequate responses Physical Exam-General Problems Physical Exam Vital Signs Vital Signs - First Documented 07/26/19 07/26/19 07/27/19 21:25 23:38 00:55 Temp 36.5 Pulse 140 Resp 25 B/P (MAP) 149/111 Pulse Ox 95 O2 Delivery Nasal Cannula O2 Flow Rate 10.00 FiO2 35 Capillary Refill : Less Than 3 Seconds General Appearance: severe distress Neck: non-tender Back: normal inspection, no CVA tenderness, vertebral tenderness, other (Pain with palpation in the mid thoracic region) Extremities: normal range of motion, non-tender, normal inspection, other (Patient able to plantar and dorsiflex bilateral feet with 5/5 strength, sensation intact, no Darnell's or Clonus present) Neurologic/Psychiatric: no motor/sensory deficits, alert; No normal mood/affect, No facial droop; other (Patient yelling out and moaning. Grabbing and hitting bed rails. Follows simple commands with repeat instructions and persistence. ) Skin: warm/dry Assessment/Plan Assessment/Plan Admission Diagnosis/Plan Subacute compression fractures T7, T8, T9 Acute compression fracture T6 Patient's pain is disproportionate to her new T6 compression fracture. The son states that she complained of some back pain with her adjacent fractures, but has never had symptoms similar to this. We will obtain a thoracic MRI to determine acuity of all fractures and to better visualize the neurologic structures. Patient may benefit from TLSO brace, once she is out of bed Clinical Quality Measures DVT/VTE Risk/Contraindication: Risk Factor Score Per Nursin RFS Level Per Nursing on Admit: 4+=Very High CHARLES BILL Jul 30, 2019 11:24
--- NOTE | 2019-07-30 12:58 | Progress Note - Hospitalist ---
Subjective HPI/CC On Admission Date Seen by Provider: Jul 30, 2019 Time Seen by Provider: 12:00 CC: SOB HPI: This is a 69yoWF clinic pt of [facility] and Dr. Birmingham with a recent diagnosis of lung cancer former smoker who just quit recently who presented to the ER found to be in exacerbation of COPD who remains a DNR do no intubate but ABG reveals respiratory acidosis improved on biPAP, still belly breathing and now has experienced AF with RVR of heart rate of 170s and cardiology has been consulted and will manage that conservatively. Subjective/Events-last exam Patient doing much better since Geodon was given for completely onx-vm-raojiof anxiety and mental issues Require transfer up to ICU yesterday Very difficult situation since she just remains on 3 L of oxygen the seems to be very difficult to manage from an emotional standpoint Review of Systems General: Fatigue Pulmonary: Dyspnea Neurological: Confusion Objective Exam Vital Signs Vital Signs Date Time Temp Pulse Resp B/P (MAP) Pulse Ox O2 Delivery O2 Flow Rate FiO2 07/30/19 13:00 114 07/30/19 12:00 145/75 (98) High Flow N/C 3.00 07/30/19 11:00 15 07/30/19 10:25 97 07/30/19 04:08 35.9 07/29/19 04:00 28 Capillary Refill : Less Than 3 Seconds General Appearance: No Apparent Distress, WD/WN, Chronically ill, Other (sleeping) Respiratory: Lungs Clear Cardiovascular: Regular Rate, Rhythm Results/Procedures Lab Laboratory Tests 07/30/19 04:49 Patient resulted labs reviewed. Assessment/Plan Assessment and Plan Assess & Plan/Chief Complaint Assessment: Respiratory distress requiring ICU transfer last night Mzy-mm-ziudkyv behavioral problems with anxiety status post Geodon and sleeping soundly Lung cancer COPD with exacerbation Compression fracture Plan: Pain control O2 Prognosis guarded Diagnosis/Problems Diagnosis/Problems (1) Acute on chronic respiratory failure Status: Acute Qualifiers: Respiratory failure complication: unspecified whether with hypoxia or hypercapnia Qualified Codes: J96.20 - Acute and chronic respiratory failure, unspecified whether with hypoxia or hypercapnia (2) Compression fracture of T6 vertebra (3) Lung cancer (4) COPD (chronic obstructive pulmonary disease) (5) Uncontrolled hypertension Status: Acute (6) Elevated troponin Status: Acute (7) Anxiety Status: Acute Clinical Quality Measures DVT/VTE Risk/Contraindication: Risk Factor Score Per Nursin RFS Level Per Nursing on Admit: 4+=Very High CHARLY HEIN DO Jul 30, 2019 12:58
--- NOTE | 2019-07-30 19:15 | NUR ---
This RN and DAGO Gonzales at bedside for report, pt yelling and thrashing in bed, therapeutic communication attempted, pt verbalizing difficulty breathing, bipap placed at 1920, medication administered, see eMAR. Pt uncooperative, repetitive.
[2019-07-31] VITALS (25 sets, daily range): BP systolic 81–177; BP diastolic 47–115
[2019-07-31] MEDS ORDERED: WATER (STERILE) FOR INJECTION 10 ML ONE ×2 (00:43→21:51)
[2019-07-31] MEDS: ZIPRASIDONE 20 MG INJ (GEODON) VIAL IM PRN (00:47)
--- NOTE | 2019-07-31 01:00 | NUR ---
Pt yelling, ripped off bipap mask, this RN attempted to put oxygen on pt, pt clawing at this RN, therapeutic communication attempted, pt not opening eyes or responding appropriately. Multiple staff members at bedside attempting to calm pt, pt rolling and clawing at all staff. Pt responds to name, but does not answer any questions, just yells "help me". Multiple calming techniques utilized, pt continues to thrash and claw, prn IM [place] administered, see eMAR
--- NOTE | 2019-07-31 01:30 | NUR ---
Pt continuing to yell "help me", this RN remains at bedside, pt verbalized to this RN that she was in pain and wanted pain medication, medication administered, see eMAR
[2019-07-31] MEDS: morphine INJ 4 MG/ML 1 ML (VIAL/SYRINGE) IVP PRN (01:38)
[2019-07-31] MEDS: LORazepam INJ 2 MG/ML (ATIVAN) VIAL IVP PRN ×2 (01:38→14:48)
[2019-07-31] MEDS: LACTATED RINGERS 1,000 ML IV SCH (02:29)
[2019-07-31] MEDS: RT-ALBUTEROL/IPRATROPIUM 3 ML (DUONEB) VIAL INH SCH ×5 (02:50→22:16)
--- NOTE | 2019-07-31 03:30 | NUR ---
Lab at bedside to draw am labs. Pt refusing morning labs. Therapeutic communication attempted, pt adamant in refusing lab draw.
--- NOTE | 2019-07-31 04:00 | NUR ---
Pt continuing to move erratically in bed, states she is trying to get some relief from back pain. Toradol given, E-ICU consulted for guidance.
[2019-07-31] MEDS: KETOROLAC 30 MG/ML VIAL IVP PRN ×2 (04:05→11:11)
[2019-07-31] MEDS ORDERED: HYDROmorphone 2 MG/ML VIAL (DILAUDID) ONE (04:23)
[2019-07-31] MEDS ORDERED: HYDROmorphone 2 MG/ML VIAL (DILAUDID) IV ONE (04:30)
[2019-07-31] MEDS: inSUlin ASPART (NovoLOG) 1 UNIT/0.01 ML (CHARGE PER UNIT) SC SCH ×4 (05:13→20:07)
--- NOTE | 2019-07-31 06:34 | Pulmonary Progress Note ---
Subjective Time Seen by a Provider: 06:36 Subjective/Events-last exam pt yells out and appears confused Sepsis Event Evaluation Height, Weight, BMI Height: 5'5.00" Weight: 200lbs. 0.8oz. 90.856231pm; 32.00 BMI Method: Exam Exam Vital Signs Date Time Temp Pulse Resp B/P (MAP) Pulse Ox O2 Delivery O2 Flow Rate FiO2 07/31/19 05:00 122 13 109/62 (78) 94 Nasal Cannula 2.50 07/31/19 04:00 115 15 177/83 (114) 100 Nasal Cannula 2.50 07/31/19 03:00 129 21 158/89 (112) 99 Nasal Cannula 2.50 07/31/19 02:50 89 Nasal Cannula 3.00 07/31/19 02:00 115 18 138/115 (123) Nasal Cannula 2.50 07/31/19 01:00 129 18 133/74 (93) 91 Nasal Cannula 2.50 07/31/19 01:00 129 07/31/19 01:00 Nasal Cannula 2.50 07/31/19 00:00 115 18 106/71 (83) 94 NIV Bilevel 28.00 07/30/19 23:43 115 13 97 28.00 07/30/19 23:00 112 16 116/87 (97) 95 NIV Bilevel 28.00 07/30/19 22:00 112 16 112/74 (87) 90 NIV Bilevel 28.00 07/30/19 21:00 113 15 97/75 (82) 96 NIV Bilevel 28.00 07/30/19 21:00 NIV Bilevel 28 07/30/19 20:21 114 18 28.00 07/30/19 20:00 118 16 98/74 (82) 92 NIV Bilevel 28.00 07/30/19 19:30 123 15 100 28.00 07/30/19 19:20 NIV Bilevel 28.00 07/30/19 19:00 122 17 129/70 (89) High Flow N/C 3.00 07/30/19 19:00 122 07/30/19 18:00 121 16 117/90 (99) High Flow N/C 3.00 07/30/19 17:00 113 16 117/73 (88) 100 High Flow N/C 3.00 07/30/19 16:00 37.2 07/30/19 16:00 112 16 129/72 (91) 100 High Flow N/C 3.00 07/30/19 15:02 100 Nasal Cannula 3.00 07/30/19 15:00 113 18 121/72 (88) 100 High Flow N/C 3.00 07/30/19 14:00 110 18 120/65 (83) 100 High Flow N/C 3.00 07/30/19 13:00 114 20 122/76 (91) High Flow N/C 3.00 07/30/19 13:00 114 07/30/19 12:00 110 145/75 (98) High Flow N/C 3.00 07/30/19 11:00 108 15 131/86 (101) High Flow N/C 3.00 07/30/19 10:25 97 Nasal Cannula 3.00 07/30/19 10:00 115 20 136/92 (107) High Flow N/C 3.00 07/30/19 09:00 100 High Flow N/C 3.00 07/30/19 09:00 109 131/89 (103) 98 High Flow N/C 3.00 07/30/19 08:00 116 100 High Flow N/C 3.00 07/30/19 07:26 100 Nasal Cannula 3.00 07/30/19 07:00 111 07/30/19 07:00 111 17 121/71 (88) 97 High Flow N/C 3.00 I & O 07/31/19 07:00 Intake Total 1010 ml Output Total 945 ml Balance 65 ml Height & Weight Height: 5'5.00" Weight: 200lbs. 0.8oz. 90.995911pb; 32.00 BMI Method: General Appearance: No Apparent Distress, WD/WN, Chronically ill, Other (sleeping) HEENT: PERRL/EOMI, TMs Normal Neck: Full Range of Motion, Normal Inspection Respiratory: Lungs Clear Cardiovascular: Regular Rate, Rhythm Capillary Refill: Less Than 3 Seconds Peripheral Pulses: 2+ Radial Pulses (L) Gastrointestinal: non tender, soft Extremity: No Calf Tenderness, Pedal Edema Neurologic/Psychiatric: Alert, No Motor/Sensory Deficits, Normal Mood/Affect, Disoriented (hitting bedrails) Skin: Normal Color, Warm/Dry Lymphatic: No Adenopathy Results Lab Laboratory Tests 07/30/19 04:49 Assessment/Plan Assessment/Plan Acute respiratory distress with sinus tach -Currently on BiPAP -Pt refused BiPAP last night -Currently on 3 liter NC with Sp02 of 99% -Solumedrol - D/C secondary to acute psychosis Psychosis - probably acute on chronic -CHECK CT OF BRAIN WITH/WITHOUT CONTRAST TO R/O METS. -Risperadol, add PO Geodon -- D/C PO meds and change to IM scheduled. -PRN Haldol -- Change to Geodon IM PRN -Morphine PRN -- Change to Dilaudid -Ativan PRN -Will add end tidal C02 monitoring stage IA non small cell lung carcinoma. -Oncology following Acute pain with compression fracture -Pain control -Possible kyphoplasty once pt is stable Sinus tach- probably secondary to psychosis -Start LR at 30cc/hr COPDAE -Duoneb Q4 -advair Metabolic lactic acidosis - improving Acute renal failure- improving KARIME ERNANDEZ DO Jul 31, 2019 06:34 POS
[2019-07-31 06:39] LABS: BASOPHILS % (AUTO) 0 % (0-10); EOSINOPHILS % (AUTO) 0 % (0-10); HEMATOCRIT 32 % (35-52); HEMOGLOBIN 10.2 G/DL (11.5-16.0); LYMPHOCYTES # (AUTO) 0.3 X 10^3 (1.0-4.0); LYMPHOCYTES % (AUTO) 4 % (12-44); MEAN CORPUSCULAR HEMOGLOBIN 31 PG (25-34); MEAN CORPUSCULAR HGB CONC 32 G/DL (32-36); MEAN CORPUSCULAR VOLUME 96 FL (80-99); MEAN PLATELET VOLUME 10.5 FL (7.4-10.4); MONOCYTES # (AUTO) 0.7 X 10^3 (0.0-1.0); MONOCYTES % (AUTO) 8 % (0-12); NEUTROPHILS % (AUTO) 87 % (42-75); PLATELET COUNT 136 10^3/uL (130-400); RED CELL DISTRIBUTION WIDTH 16.4 % (10.0-14.5); WHITE BLOOD COUNT 8.1 10^3/uL (4.3-11.0)
[2019-07-31 07:02] LABS: BUN/CREATININE RATIO 38; CALCIUM 8.1 MG/DL (8.5-10.1); CARBON DIOXIDE 28 MMOL/L (21-32); CHLORIDE 104 MMOL/L (98-107); CREATININE SERUM 0.66 MG/DL (0.60-1.30); GFR ESTIMATED > 60; GLUCOSE 143 MG/DL (70-105); MAGNESIUM 1.8 MG/DL (1.6-2.4); PHOSPHORUS 2.3 MG/DL (2.3-4.7); POTASSIUM 3.9 MMOL/L (3.6-5.0); SODIUM 140 MMOL/L (135-145)
[2019-07-31 09:13] LABS: FREE T4 (FREE THYROXINE) 0.91 NG/DL (0.70-1.48)
[2019-07-31] MEDS: methylPREDNISolone 40 MG/ML (Solu-MEDROL) VIAL IVP SCH (09:40)
[2019-07-31] MEDS: HYDROmorphone 2 MG/ML VIAL (DILAUDID) IVP PRN ×2 (11:30→17:05)
[2019-07-31] MEDS: CEFEPIME INJECTION 2,000 MG in WATER (STERILE) FOR INJECTION 20 ML IV SCH (11:31)
[2019-07-31] MEDS: ZIPRASIDONE 20 MG INJ (GEODON) VIAL IM SCH ×2 (11:31→21:00)
[2019-07-31] MEDS: LIDOCAINE 4% (SALONPAS) PATCH TOP SCH (12:46)
[2019-07-31] MEDS: risperiDONE 1 MG (RisperDAL) TAB PO SCH ×2 (12:46→20:07)
[2019-07-31] MEDS: APIXABAN 5 MG (ELIQUIS) TABLET PO SCH ×2 (12:48→20:07)
--- NOTE | 2019-07-31 12:53 | Progress Note - Hospitalist ---
Subjective HPI/CC On Admission Date Seen by Provider: Jul 31, 2019 Time Seen by Provider: 11:45 CC: SOB HPI: This is a 69yoWF clinic pt of [facility] and Dr. Birmingham with a recent diagnosis of lung cancer former smoker who just quit recently who presented to the ER found to be in exacerbation of COPD who remains a DNR do no intubate but ABG reveals respiratory acidosis improved on biPAP, still belly breathing and now has experienced AF with RVR of heart rate of 170s and cardiology has been consulted and will manage that conservatively. Subjective/Events-last exam Patient has multiple psych issues that are precluding a full recovery May need hospice sign up Talk to son about recovery options and rehab and nursing facilities Antipsychotics are the only thing that helps her anxiety Dr. Wallace has been consulted for compression fracture Not able to take any oral meds due to sedation Objective Exam Vital Signs Vital Signs Date Time Temp Pulse Resp B/P (MAP) Pulse Ox O2 Delivery O2 Flow Rate FiO2 07/31/19 19:24 94 Nasal Cannula 2.00 07/31/19 18:00 108 9 130/80 (97) 07/31/19 15:59 37.0 07/31/19 09:00 28 Capillary Refill : Less Than 3 Seconds General Appearance: No Apparent Distress, WD/WN, Chronically ill, Other (sedated) Respiratory: Lungs Clear Cardiovascular: Regular Rate, Rhythm Results/Procedures Lab Laboratory Tests 07/31/19 06:00 Patient resulted labs reviewed. Assessment/Plan Assessment and Plan Assess & Plan/Chief Complaint Assessment: Respiratory distress requiring ICU transfer Thursday night [id number] behavioral problems with anxiety status post Geodon and sleeping soundly Lung cancer COPD with exacerbation Compression fracture Plan: Pain control O2 Prognosis guarded Diagnosis/Problems Diagnosis/Problems (1) Acute on chronic respiratory failure Status: Acute Qualifiers: Respiratory failure complication: unspecified whether with hypoxia or hypercapnia Qualified Codes: J96.20 - Acute and chronic respiratory failure, unspecified whether with hypoxia or hypercapnia (2) Compression fracture of T6 vertebra (3) Lung cancer (4) COPD (chronic obstructive pulmonary disease) (5) Uncontrolled hypertension Status: Acute (6) Elevated troponin Status: Acute (7) Anxiety Status: Acute Clinical Quality Measures DVT/VTE Risk/Contraindication: Risk Factor Score Per Nursin RFS Level Per Nursing on Admit: 4+=Very High CHARLY HEIN DO Jul 31, 2019 12:53
[2019-07-31] MEDS: ENOXAPARIN 40 MG/0.4 ML (LOVENOX) SYR SQ SCH (12:56)
[2019-07-31] MEDS: meTOprolol 5 MG/5 ML (LOPRESSOR) VIAL IV SCH ×2 (12:56→17:52)
--- NOTE | 2019-07-31 13:15 | Progress Note - Cardiology ---
Cardiology SOAP Progress Note Subjective: Somnolent and restless. Does not provide symptoms Objective: I&O/Vital Signs 07/31/19 07/31/19 07/31/19 07/31/19 02:00 02:50 03:00 04:00 Pulse 115 129 115 Resp 18 21 15 B/P (MAP) 138/115 (123) 158/89 (112) 177/83 (114) Pulse Ox 89 99 100 O2 Delivery Nasal Cannula Nasal Cannula Nasal Cannula Nasal Cannula O2 Flow Rate 2.50 3.00 2.50 2.50 07/31/19 07/31/19 07/31/19 07/31/19 05:00 06:00 06:45 06:50 Pulse 122 114 Resp 13 13 B/P (MAP) 109/62 (78) 81/52 (62) Pulse Ox 94 99 O2 Delivery Nasal Cannula Nasal Cannula Nasal Cannula Nasal Cannula O2 Flow Rate 2.50 2.50 3.00 2.00 07/31/19 07/31/19 07/31/19 07/31/19 07:00 07:10 08:00 09:00 Pulse 116 118 124 117 Resp 12 12 14 B/P (MAP) 87/47 (60) 90/47 (61) 87/55 (66) Pulse Ox 96 96 96 O2 Delivery Nasal Cannula Nasal Cannula Nasal Cannula O2 Flow Rate 2.00 2.00 2.00 07/31/19 07/31/19 07/31/19 07/31/19 10:00 10:54 11:00 12:00 Pulse 115 118 123 Resp 14 22 24 B/P (MAP) 105/55 (72) 118/74 (89) 144/92 (109) Pulse Ox 100 96 100 94 O2 Delivery Nasal Cannula Nasal Cannula Nasal Cannula Nasal Cannula O2 Flow Rate 2.00 2.00 2.00 2.00 07/31/19 12:00 Temp 35.9 07/31/19 00:00 Intake Total 10 ml Output Total 825 ml Balance -815 ml Weight (Pounds): 200 Weight (Ounces): 0.8 Weight (Calculated Kilograms): 90.720388 Constitutional: well-developed, well-nourished, other (somnolent, agitated, does not answer questions at the time of this exam) Respiratory: chest expansion is symmetric, chest is bilaterally symmetric, rhonchi (scattered), other (fair air entry) Cardiovascular: regular rate-rhythm; No JVD; S1 and S2 Gastrointestional: No tender; soft, round Extremities: no lower extremity edema bilateral Neurologic/Psychiatric: grossly intact Skin: No rash on exposed areas, No ulcerations on exposed areas Results/Procedures: Labs Laboratory Tests 07/30/19 15:56: Glucometer 241H 07/31/19 06:00: White Blood Count 8.1, Red Blood Count 3.30L, Hemoglobin 10.2L, Hematocrit 32L, Mean Corpuscular Volume 96, Mean Corpuscular Hemoglobin 31, Mean Corpuscular Hemoglobin Concent 32, Red Cell Distribution Width 16.4H, Platelet Count 136, Mean Platelet Volume 10.5H, Neutrophils (%) (Auto) 87H, Lymphocytes (%) (Auto) 4L, Monocytes (%) (Auto) 8, Eosinophils (%) (Auto) 0, Basophils (%) (Auto) 0, Neutrophils # (Auto) 7.0, Lymphocytes # (Auto) 0.3L, Monocytes # (Auto) 0.7, Eosinophils # (Auto) 0.0, Basophils # (Auto) 0.0, Sodium Level 140, Potassium Level 3.9, Chloride Level 104, Carbon Dioxide Level 28, Anion Gap 8, Blood Urea Nitrogen 25H, Creatinine 0.66, Estimat Glomerular Filtration Rate > 60, BUN/Creatinine Ratio 38, Glucose Level 143H, Calcium Level 8.1L, Phosphorus Level 2.3, Magnesium Level 1.8, Thyroid Stimulating Hormone (TSH) 1.35, Free T hyroxine 0.91 07/31/19 11:03: Glucometer 137H Microbiology 07/26/19 Blood Culture - Preliminary, Resulted No growth 07/27/19 MRSA Screen - Final, Complete MRSA not isolated 07/26/19 Urine Culture - Final, Complete 3 or more isolates Laboratory Tests 07/30/19 04:49 07/31/19 06:00 A/P: Assessment: Paroxysmal atrial fibrillation with RVR (first documented on EKG of 07-27-19) - currently SR Echocardiogram of Jul 27, [address] Arevalo showed LVEF 55-65%. PASP 20-25mmHg. Mild TR. Acute respiratory failure with acute exacerbation of COPD - management per pulmonary services Pre-renal azotemia, likely due to intravasc vol depletion due to diuretics Anxiety Metabolic acidosis with acute respiratory failure - improved Hx of Lung CA- followed by Dr. Birmingham. Acute renal failure - resolved H/O tobaccoism Obesity Chronic back pain Plan: * Complex management due to multiple comorbidities * Change meds to parenteral: iv bb, sc enoxaparin * Monitor lab closely * Treatment of COPD and resp failure is with Pulmonary and Med CARLOS ENRIQUE Figueroa MD FACP FAC CCDS Jul 31, 2019 13:15
--- NOTE | 2019-07-31 17:23 | NUR ---
1200 DR CAMPBELL ON FLOOR AND NOTIFIED THAT PT IS UNABLE TO TAKE ORAL MEDICATIONS AT THIS TIME, NEW ORDERS RECEIVED SEE ORDER HX.
[2019-07-31] MEDS: PATCH REMOVAL TP SCH (21:00)
[2019-08-01] VITALS (16 sets, daily range): BP systolic 101–152; BP diastolic 53–110
[2019-08-01] MEDS: LACTATED RINGERS 1,000 ML IV SCH ×3 (00:04→20:36)
[2019-08-01] MEDS: CEFEPIME INJECTION 2,000 MG in WATER (STERILE) FOR INJECTION 20 ML IV SCH ×3 (00:05→22:24)
[2019-08-01] MEDS: meTOprolol 5 MG/5 ML (LOPRESSOR) VIAL IV SCH ×4 (00:12→17:34)
[2019-08-01] MEDS: LORazepam INJ 2 MG/ML (ATIVAN) VIAL IVP PRN ×3 (00:12→21:57)
[2019-08-01] MEDS: HYDROmorphone 2 MG/ML VIAL (DILAUDID) IVP PRN (01:09)
[2019-08-01] MEDS: RT-ALBUTEROL/IPRATROPIUM 3 ML (DUONEB) VIAL INH SCH ×6 (03:19→21:04)
[2019-08-01 04:14] LABS: BASOPHILS % (AUTO) 0 % (0-10); EOSINOPHILS % (AUTO) 0 % (0-10); HEMATOCRIT 33 % (35-52); HEMOGLOBIN 10.2 G/DL (11.5-16.0); LYMPHOCYTES # (AUTO) 0.4 X 10^3 (1.0-4.0); LYMPHOCYTES % (AUTO) 5 % (12-44); MEAN CORPUSCULAR HEMOGLOBIN 30 PG (25-34); MEAN CORPUSCULAR HGB CONC 31 G/DL (32-36); MEAN CORPUSCULAR VOLUME 95 FL (80-99); MEAN PLATELET VOLUME 10.2 FL (7.4-10.4); MONOCYTES # (AUTO) 0.6 X 10^3 (0.0-1.0); MONOCYTES % (AUTO) 7 % (0-12); NEUTROPHILS # (AUTO) 7.7 X 10^3 (1.8-7.8); NEUTROPHILS % (AUTO) 88 % (42-75); PLATELET COUNT 176 10^3/uL (130-400); RED CELL DISTRIBUTION WIDTH 16.3 % (10.0-14.5); WHITE BLOOD COUNT 8.7 10^3/uL (4.3-11.0)
[2019-08-01 04:24] LABS: BUN/CREATININE RATIO 29; CALCIUM 8.2 MG/DL (8.5-10.1); CARBON DIOXIDE 28 MMOL/L (21-32); CHLORIDE 104 MMOL/L (98-107); CREATININE SERUM 0.62 MG/DL (0.60-1.30); GFR ESTIMATED > 60; GLUCOSE 120 MG/DL (70-105); MAGNESIUM 1.5 MG/DL (1.6-2.4); PHOSPHORUS 1.8 MG/DL (2.3-4.7); POTASSIUM 3.5 MMOL/L (3.6-5.0); SODIUM 143 MMOL/L (135-145)
[2019-08-01] MEDS ORDERED: POTASSIUM PHOSPHATE INJ 30 MM in NS (IVPB) 250 ML IV ONE (05:15)
[2019-08-01 05:19] LABS: LYMPHOCYTES % (MANUAL) 5 %; METAMYELOCYTES % 3 %; MONOCYTES % (MANUAL) 5 %; NEUTROPHILS % (MANUAL) 87 %
[2019-08-01] MEDS ORDERED: MAGNESIUM 1 GM/100 ML IVPB 300 ML IV ONE (05:21)
[2019-08-01] MEDS: inSUlin ASPART (NovoLOG) 1 UNIT/0.01 ML (CHARGE PER UNIT) SC SCH ×4 (05:27→21:01)
[2019-08-01] MEDS ORDERED: ZIPRASIDONE 20 MG INJ (GEODON) VIAL IM ONE ×2 (05:33→05:36)
[2019-08-01] MEDS ORDERED: WATER (STERILE) FOR INJECTION 10 ML ONE ×2 (05:40→20:47)
[2019-08-01] MEDS ORDERED: NS IV 1000 ML 1,000 ML ONE (05:45)
[2019-08-01] MEDS: MAGNESIUM 1 GM/100 ML IVPB 100 ML IV SCH ×3 (05:51→08:30)
[2019-08-01] MEDS: ZIPRASIDONE 20 MG INJ (GEODON) VIAL IM SCH ×2 (05:52→21:00)
--- NOTE | 2019-08-01 07:05 | Diagnostic Imaging Report ---
INDICATION: Respiratory failure. COMPARISON: 07/30/2019. FINDINGS: Single view of the chest demonstrates stable basilar atelectasis. The heart is prominent without pulmonary edema. There is no pneumothorax or effusion. Position of the Port-A-Cath is unchanged. IMPRESSION: Unchanged aeration of the lungs. Dictated by: Dictated on workstation # [id number]
[2019-08-01] MEDS: LIDOCAINE 4% (SALONPAS) PATCH TOP SCH (09:25)
[2019-08-01] MEDS: KETOROLAC 30 MG/ML VIAL IVP PRN ×2 (09:26→16:57)
--- NOTE | 2019-08-01 09:33 | Progress Note - Cardiology ---
Cardiology SOAP Progress Note Subjective: Has back pain. Does not report cp or palp or syncope Objective: I&O/Vital Signs 07/31/19 07/31/19 07/31/19 07/31/19 22:00 22:14 23:00 23:17 Pulse 130 134 133 Resp 18 20 22 B/P (MAP) 155/92 (113) 153/91 (111) 153/91 (111) Pulse Ox 99 92 91 92 O2 Delivery Nasal Cannula Nasal Cannula Nasal Cannula Nasal Cannula O2 Flow Rate 2.00 2.00 2.00 2.00 08/01/19 08/01/19 08/01/19 08/01/19 00:00 00:00 00:00 00:28 Temp 36.6 Pulse 131 114 Resp 23 24 B/P (MAP) 132/105 (114) 143/77 (99) O2 Delivery Nasal Cannula Nasal Cannula Nasal Cannula O2 Flow Rate 2.00 2.00 2.00 08/01/19 08/01/19 08/01/19 08/01/19 01:00 01:00 02:00 03:06 Temp 36.6 Pulse 115 118 112 129 Resp 20 20 23 B/P (MAP) 128/70 (89) 118/53 (74) 145/87 (106) Pulse Ox 93 93 O2 Delivery Nasal Cannula Nasal Cannula Nasal Cannula O2 Flow Rate 2.00 2.00 2.00 08/01/19 08/01/19 08/01/19 08/01/19 03:10 03:19 04:00 04:00 Pulse 128 121 Resp 20 16 B/P (MAP) 145/87 (106) 134/63 (86) Pulse Ox 96 89 99 O2 Delivery Nasal Cannula Nasal Cannula Nasal Cannula Nasal Cannula O2 Flow Rate 2.00 2.00 2.00 2.00 08/01/19 08/01/19 08/01/19 08/01/19 04:11 05:00 06:00 06:46 Temp 36.0 Pulse 113 122 Resp 14 17 B/P (MAP) 101/53 (69) 145/79 (101) Pulse Ox 95 92 91 O2 Delivery Nasal Cannula Nasal Cannula Nasal Cannula O2 Flow Rate 2.00 2.00 2.00 08/01/19 08/01/19 08/01/19 07:00 07:00 08:00 Pulse 105 108 105 Resp 30 19 B/P (MAP) 148/97 (114) 152/110 (124) O2 Delivery Nasal Cannula Nasal Cannula O2 Flow Rate 2.00 2.00 08/01/19 00:00 Intake Total 0 ml Output Total 700 ml Balance -700 ml Weight (Pounds): 200 Weight (Ounces): 0.8 Weight (Calculated Kilograms): 90.889127 Constitutional: well-developed, well-nourished, other (Somnolent, but awakens and answred questions, appears oriented x 3) Respiratory: chest expansion is symmetric, chest is bilaterally symmetric, rhonchi (scattered), other (fair air entry) Cardiovascular: regular rate-rhythm; No JVD; S1 and S2 Gastrointestional: No tender; soft, round Extremities: no lower extremity edema bilateral Neurologic/Psychiatric: grossly intact Skin: No rash on exposed areas, No ulcerations on exposed areas Results/Procedures: Labs Laboratory Tests 07/31/19 11:03: Glucometer 137H 07/31/19 15:42: Glucometer 238H 07/31/19 20:06: Glucometer 180H 08/01/19 03:46: White Blood Count 8.7, Red Blood Count 3.42L, Hemoglobin 10.2L, Hematocrit 33L, Mean Corpuscular Volume 95, Mean Corpuscular Hemoglobin 30, Mean Corpuscular Hemoglobin Concent 31L, Red Cell Distribution Width 16.3H, Platelet Count 176, Mean Platelet Volume 10.2, Neutrophils (%) (Auto) 88H, Lymphocytes (%) (Auto) 5L , Monocytes (%) (Auto) 7, Eosinophils (%) (Auto) 0, Basophils (%) (Auto) 0, Neutrophils # (Auto) 7.7, Lymphocytes # (Auto) 0.4L, Monocytes # (Auto) 0.6, Eosinophils # (Auto) 0.0, Basophils # (Auto) 0.0, Neutrophils % (Manual) 87, Lymphocytes % (Manual) 5, Monocytes % (Manual) 5, Metamyelocytes % 3, Sodium Level 143, Potassium Level 3.5L, Chloride Level 104, Carbon Dioxide Level 28, Anion Gap 11, Blood Urea Nitrogen 18, Creatinine 0.62, Estimat Glomerular Filtration Rate > 60, BUN/Creatinine Ratio 29, Glucose Level 120H, Calcium Level 8.2L, Phosphorus Level 1.8L, Magnesium Level 1.5L Microbiology 07/26/19 Blood Culture - Preliminary, Resulted No growth 07/27/19 MRSA Screen - Final, Complete MRSA not isolated 07/26/19 Urine Culture - Final, Complete 3 or more isolates Laboratory Tests 07/31/19 06:00 08/01/19 03:46 A/P: Assessment: Paroxysmal atrial fibrillation with RVR (first documented on EKG of 07-27-19) - currently SR Echocardiogram of Jul 27, [address] Arevalo showed LVEF 55-65%. PASP 20-25mmHg. Mild TR. Acute respiratory failure with acute exacerbation of COPD - management per pulmonary services Pre-renal azotemia, likely due to intravasc vol depletion due to diuretics Anxiety Metabolic acidosis with acute respiratory failure - improved Hx of Lung CA- followed by Dr. Birmingham. Acute renal failure - resolved H/O tobaccoism Obesity Chronic back pain Plan: * Complex management due to multiple comorbidities * Cardiac meds have been change to parenteral: iv bb, sc enoxaparin (because she was taking oral meds only sporadically) * Replenish K * Monitor lab closely * Treatment of COPD and resp failure is with Pulmonary and Med CARLOS ENRIQUE Figueroa MD FACP FAC CCDS Aug 01, 2019 09:33
[2019-08-01] MEDS: risperiDONE 1 MG (RisperDAL) TAB PO SCH ×2 (09:56→20:46)
--- NOTE | 2019-08-01 10:11 | NUR ---
PALLIATIVE CARE RN in to see patient. NO family is present at this time. She has a live sitter and a Tele-sitter. SHe is laying on her side and roused easily with verbal cues. She is mostly mumbly in her speech and difficult to understand Can hear audible course breath sounds, RRR is regular She reports that she feels terrible. Her LE is edematous and cold to touch. She has red inflamed left forearm..as if an IV infiltrated. Her right upper extremity is cold and has a mottled appearance. Was unable to have a hospice discussion with her at this time. Will try again when family is here. SHe is scheduled for an MRI today due to having a disproportionate amount of pain from the acute compression fracture.
--- NOTE | 2019-08-01 10:40 | Pulmonary Progress Note ---
Subjective Time Seen by a Provider: 05:00 Subjective/Events-last exam RN reports that pt will just start yelling out anytime she is awake. RN states they are giving her PRN sedation meds anytime they are due. Sepsis Event Evaluation Height, Weight, BMI Height: 5'5.00" Weight: 200lbs. 0.8oz. 90.845994co; 32.00 BMI Method: Exam Exam Vital Signs Date Time Temp Pulse Resp B/P (MAP) Pulse Ox O2 Delivery O2 Flow Rate FiO2 08/01/19 10:32 91 Nasal Cannula 2.00 08/01/19 09:54 Nasal Cannula 2.00 08/01/19 08:00 105 19 152/110 (124) Nasal Cannula 2.00 08/01/19 07:00 108 30 148/97 (114) Nasal Cannula 2.00 08/01/19 07:00 105 08/01/19 06:46 91 Nasal Cannula 2.00 08/01/19 06:00 122 17 145/79 (101) 92 Nasal Cannula 2.00 08/01/19 05:00 113 14 101/53 (69) 95 Nasal Cannula 2.00 08/01/19 04:11 36.0 08/01/19 04:00 121 16 134/63 (86) 99 Nasal Cannula 2.00 08/01/19 04:00 Nasal Cannula 2.00 08/01/19 03:19 89 Nasal Cannula 2.00 08/01/19 03:10 128 20 145/87 (106) 96 Nasal Cannula 2.00 08/01/19 03:06 129 23 145/87 (106) 93 Nasal Cannula 2.00 08/01/19 02:00 112 20 118/53 (74) 93 Nasal Cannula 2.00 08/01/19 01:00 118 08/01/19 01:00 36.6 115 20 128/70 (89) Nasal Cannula 2.00 08/01/19 00:28 114 24 143/77 (99) Nasal Cannula 2.00 08/01/19 00:00 36.6 08/01/19 00:00 Nasal Cannula 2.00 08/01/19 00:00 131 23 132/105 (114) Nasal Cannula 2.00 07/31/19 23:17 133 22 153/91 (111) 92 Nasal Cannula 2.00 07/31/19 23:00 134 20 153/91 (111) 91 Nasal Cannula 2.00 07/31/19 22:14 92 Nasal Cannula 2.00 07/31/19 22:00 130 18 155/92 (113) 99 Nasal Cannula 2.00 07/31/19 21:00 Nasal Cannula 2.00 07/31/19 21:00 122 22 147/103 (118) 91 Nasal Cannula 2.00 07/31/19 20:00 112 25 99 Nasal Cannula 2.00 07/31/19 19:24 94 Nasal Cannula 2.00 07/31/19 19:23 36.7 109 94 07/31/19 19:00 36.7 07/31/19 19:00 109 07/31/19 19:00 109 12 125/73 (90) 96 Nasal Cannula 2.00 07/31/19 18:00 108 9 130/80 (97) 99 Nasal Cannula 2.00 07/31/19 17:00 125 15 132/89 (103) 95 Nasal Cannula 2.00 07/31/19 16:00 115 18 128/63 (84) 96 Nasal Cannula 2.00 07/31/19 15:59 37.0 07/31/19 15:00 115 16 121/64 (83) 91 Nasal Cannula 2.00 07/31/19 14:01 98 Nasal Cannula 2.00 07/31/19 14:00 115 16 139/56 (83) 94 Nasal Cannula 2.00 07/31/19 13:06 107 07/31/19 13:00 109 24 126/73 (90) 90 Nasal Cannula 2.00 07/31/19 12:00 35.9 07/31/19 12:00 123 24 144/92 (109) 94 Nasal Cannula 2.00 07/31/19 11:00 118 22 118/74 (89) 100 Nasal Cannula 2.00 07/31/19 10:54 96 Nasal Cannula 2.00 I & O 08/01/19 07:00 Intake Total 1150 ml Output Total 2250 ml Balance -1100 ml Height & Weight Height: 5'5.00" Weight: 200lbs. 0.8oz. 90.240930mt; 32.00 BMI Method: General Appearance: No Apparent Distress, WD/WN, Chronically ill, Other (sedated) HEENT: PERRL/EOMI, TMs Normal Neck: Full Range of Motion, Normal Inspection Respiratory: Lungs Clear Cardiovascular: Regular Rate, Rhythm Capillary Refill: Less Than 3 Seconds Peripheral Pulses: 2+ Radial Pulses (L) Gastrointestinal: non tender, soft Extremity: No Calf Tenderness, Pedal Edema Neurologic/Psychiatric: Alert, No Motor/Sensory Deficits, Normal Mood/Affect, Depressed Affect, Disoriented Skin: Normal Color, Warm/Dry Lymphatic: No Adenopathy Results Lab Laboratory Tests 07/31/19 06:00 08/01/19 03:46 Assessment/Plan Assessment/Plan Acute respiratory distress with sinus tach -Currently on 2 liter NC with Sp02 of 99% -Solumedrol - D/C secondary to acute psychosis Psychosis - probably acute on chronic -CT OF BRAIN WITH/WITHOUT CONTRAST TO R/O METS was negative . -Risperadol, PO Geodon - - Dilaudid PRN -Ativan PRN -end tidal C02 monitoring stage IA non small cell lung carcinoma. -Oncology following Acute pain with compression fracture -Pain control -Possible kyphoplasty once pt is stable Sinus tach- probably secondary to psychosis -Start LR at 30cc/hr COPDAE -Duoneb Q4 -advair Metabolic lactic acidosis - improving Acute renal failure- improving KARIME ERNANDEZ DO Aug 01, 2019 10:40
--- NOTE | 2019-08-01 11:51 | Diagnostic Imaging Report ---
INDICATION: Mid back pain. TECHNIQUE: Multiplanar, multisequence imaging of the thoracic spine was performed without contrast. COMPARISON: Correlation is made with prior CTs dating back to March 2019. FINDINGS: Curvature and alignment of the thoracic spine is normal. There are chronic compression fracture deformities involving the T7, T8, and T9 vertebral bodies. These are very similar to prior CTs dating back to March. There is development of moderate compression fracture deformity involving the T6 vertebral body since CT study from 06/30/2019. This was present on the CT from 07/27/2019. There is diffuse low signal intensity on T1-weighted images. However, no significant edema is identified on the T2 fat-saturation or inversion recovery sequences consistent with significant healing. There is low signal throughout, and clinical correlation to performance of kyphoplasty at this level is recommended. Remaining thoracic vertebrae show normal stature. No definite retropulsion is seen. Thoracic cord is unremarkable. Study is compromised due to patient motion. The paraspinous tissues are unremarkable. IMPRESSION: 1. Chronic T7 through T9 compression fractures. A compression fracture has developed within the T6 vertebral body since the CT of the chest study one month earlier. However, no significant edema is present suggestive of some healing. No retropulsion or spinal canal stenosis is identified. No other abnormality is seen. Dictated by: Dictated on workstation # [id number]
[2019-08-01] MEDS: ENOXAPARIN 40 MG/0.4 ML (LOVENOX) SYR SQ SCH (12:10)
--- NOTE | 2019-08-01 13:18 | Physical Therapy Progress Note ---
Therapy Progress Note Hold today due to sedation for MRI per physician. Will resume in JAMES Costello PT Aug 01, 2019 13:18
--- NOTE | 2019-08-01 14:30 | Progress Note ---
Subjective Date Seen by a Provider: Aug 01, 2019 Time Seen by a Provider: 12:45 Subjective/Events-last exam Sedated, sleepy from MRI scan. Discussion with her son who is present in room, he is very concerned about how severe her pain still appears. Objective Exam Vital Signs Date Time Temp Pulse Resp B/P (MAP) Pulse Ox O2 Delivery O2 Flow Rate FiO2 08/01/19 12:48 88 08/01/19 12:00 91 16 113/59 (77) Nasal Cannula 2.00 08/01/19 10:32 91 Nasal Cannula 2.00 08/01/19 09:54 Nasal Cannula 2.00 08/01/19 08:00 105 19 152/110 (124) Nasal Cannula 2.00 08/01/19 07:00 108 30 148/97 (114) Nasal Cannula 2.00 08/01/19 07:00 105 08/01/19 06:46 91 Nasal Cannula 2.00 08/01/19 06:00 122 17 145/79 (101) 92 Nasal Cannula 2.00 08/01/19 05:00 113 14 101/53 (69) 95 Nasal Cannula 2.00 08/01/19 04:11 36.0 08/01/19 04:00 121 16 134/63 (86) 99 Nasal Cannula 2.00 08/01/19 04:00 Nasal Cannula 2.00 08/01/19 03:19 89 Nasal Cannula 2.00 08/01/19 03:10 128 20 145/87 (106) 96 Nasal Cannula 2.00 08/01/19 03:06 129 23 145/87 (106) 93 Nasal Cannula 2.00 08/01/19 02:00 112 20 118/53 (74) 93 Nasal Cannula 2.00 08/01/19 01:00 118 08/01/19 01:00 36.6 115 20 128/70 (89) Nasal Cannula 2.00 08/01/19 00:28 114 24 143/77 (99) Nasal Cannula 2.00 08/01/19 00:00 36.6 08/01/19 00:00 Nasal Cannula 2.00 08/01/19 00:00 131 23 132/105 (114) Nasal Cannula 2.00 07/31/19 23:17 133 22 153/91 (111) 92 Nasal Cannula 2.00 07/31/19 23:00 134 20 153/91 (111) 91 Nasal Cannula 2.00 07/31/19 22:14 92 Nasal Cannula 2.00 07/31/19 22:00 130 18 155/92 (113) 99 Nasal Cannula 2.00 07/31/19 21:00 Nasal Cannula 2.00 07/31/19 21:00 122 22 147/103 (118) 91 Nasal Cannula 2.00 07/31/19 20:00 112 25 99 Nasal Cannula 2.00 07/31/19 19:24 94 Nasal Cannula 2.00 07/31/19 19:23 36.7 109 94 07/31/19 19:00 36.7 07/31/19 19:00 109 07/31/19 19:00 109 12 125/73 (90) 96 Nasal Cannula 2.00 07/31/19 18:00 108 9 130/80 (97) 99 Nasal Cannula 2.00 07/31/19 17:00 125 15 132/89 (103) 95 Nasal Cannula 2.00 07/31/19 16:00 115 18 128/63 (84) 96 Nasal Cannula 2.00 07/31/19 15:59 37.0 07/31/19 15:00 115 16 121/64 (83) 91 Nasal Cannula 2.00 I & O 08/01/19 06:59 Intake Total 1150 ml Output Total 2025 ml Balance -875 ml Capillary Refill : Less Than 3 Seconds General Appearance: Other (sedate) Neurologic/Psychiatric: No Motor/Sensory Deficits Results Lab Laboratory Tests 07/31/19 15:42: Glucometer 238H 07/31/19 20:06: Glucometer 180H 08/01/19 03:46: White Blood Count 8.7, Red Blood Count 3.42L, Hemoglobin 10.2L, Hematocrit 33L, Mean Corpuscular Volume 95, Mean Corpuscular Hemoglobin 30, Mean Corpuscular Hemoglobin Concent 31L, Red Cell Distribution Width 16.3H, Platelet Count 176, Mean Platelet Volume 10.2, Neutrophils (%) (Auto) 88H, Lymphocytes (%) (Auto) 5L , Monocytes (%) (Auto) 7, Eosinophils (%) (Auto) 0, Basophils (%) (Auto) 0, Neutrophils # (Auto) 7.7, Lymphocytes # (Auto) 0.4L, Monocytes # (Auto) 0.6, Eosinophils # (Auto) 0.0, Basophils # (Auto) 0.0, Neutrophils % (Manual) 87, Lymphocytes % (Manual) 5, Monocytes % (Manual) 5, Metamyelocytes % 3, Sodium Level 143, Potassium Level 3.5L, Chloride Level 104, Carbon Dioxide Level 28, Anion Gap 11, Blood Urea Nitrogen 18, Creatinine 0.62, Estimat Glomerular Filtration Rate > 60, BUN/Creatinine Ratio 29, Glucose Level 120H, Calcium Level 8.2L, Phosphorus Level 1.8L, Magnesium Level 1.5L 08/01/19 11:52: Glucometer 178H Microbiology 07/26/19 Blood Culture - Preliminary, Resulted No growth 07/27/19 MRSA Screen - Final, Complete MRSA not isolated 07/26/19 Urine Culture - Final, Complete 3 or more isolates Meds MRI T spine shows acute T6 compression fracture, with old fractures of T7-8-9 Assessment/Plan Assessment/Plan Assess & Plan/Chief Complaint Acute T6 compression fracture Plan: case discussed with son and Dr Pond. Will further work to decide whether or not she is even a surgical candidate and if she can come off blood thinners to be a kyphoplasty candidate. I'm also concerned about how much she hurts and if it will be able to relieve her pain. Clinical Quality Measures DVT/VTE Risk/Contraindication: Risk Factor Score Per Nursin RFS Level Per Nursing on Admit: 4+=Very High MOON JEAN MD Aug 01, 2019 14:30
--- NOTE | 2019-08-01 14:53 | NUR ---
Pt's soon and his and family friend here. Family thinks pt is more comfortable and pt is lying still and does appear comfortable. Son thinks pt will need a period of rehab as is aware pt currently would be unable to manae if home alone.
--- NOTE | 2019-08-01 15:33 | Progress Note ---
Subjective Subjective/Events-last exam Patient resting this AM. Gets agitated when bothered or awake. States that she is in pain in her back. Review of Systems Pulmonary: No Dyspnea, No Cough Cardiovascular: No: Chest Pain Musculoskeletal: back pain Objective Exam Last Set of Vital Signs Vital Signs Date Time Temp Pulse Resp B/P (MAP) Pulse Ox O2 Delivery O2 Flow Rate FiO2 08/01/19 14:30 98 Nasal Cannula 2.00 08/01/19 12:48 88 08/01/19 12:00 16 113/59 (77) 08/01/19 04:11 36.0 07/31/19 09:00 28 Capillary Refill : Less Than 3 Seconds I&O Intake and Output 08/01/19 00:00 Intake Total 1030 ml Output Total 1125 ml Balance -95 ml Intake Oral 30 ml IV Total 1000 ml Output Urine Total 1125 ml General: Alert, No Acute Distress Lungs: Clear to Auscultation, Normal Air Movement Heart: Regular Rate, No Murmurs Extremities: No Edema, No Tenderness/Swelling Results/Procedures Lab Laboratory Tests 07/31/19 15:42: Glucometer 238H 07/31/19 20:06: Glucometer 180H 08/01/19 03:46: White Blood Count 8.7, Red Blood Count 3.42L, Hemoglobin 10.2L, Hematocrit 33L, Mean Corpuscular Volume 95, Mean Corpuscular Hemoglobin 30, Mean Corpuscular Hemoglobin Concent 31L, Red Cell Distribution Width 16.3H, Platelet Count 176, Mean Platelet Volume 10.2, Neutrophils (%) (Auto) 88H, Lymphocytes (%) (Auto) 5L , Monocytes (%) (Auto) 7, Eosinophils (%) (Auto) 0, Basophils (%) (Auto) 0, Neutrophils # (Auto) 7.7, Lymphocytes # (Auto) 0.4L, Monocytes # (Auto) 0.6, Eosinophils # (Auto) 0.0, Basophils # (Auto) 0.0, Neutrophils % (Manual) 87, Lymphocytes % (Manual) 5, Monocytes % (Manual) 5, Metamyelocytes % 3, Sodium Level 143, Potassium Level 3.5L, Chloride Level 104, Carbon Dioxide Level 28, Anion Gap 11, Blood Urea Nitrogen 18, Creatinine 0.62, Estimat Glomerular Filtration Rate > 60, BUN/Creatinine Ratio 29, Glucose Level 120H, Calcium Level 8.2L, Phosphorus Level 1.8L, Magnesium Level 1.5L 08/01/19 11:52: Glucometer 178H Microbiology 07/26/19 Blood Culture - Preliminary, Resulted No growth 07/27/19 MRSA Screen - Final, Complete MRSA not isolated 07/26/19 Urine Culture - Final, Complete 3 or more isolates Assessment/Plan Assessment/Plan (1) Altered mental status Status: Acute Assessment & Plan: - Acute psychosis, Dr De La Cruz has patient on geodon Qualifiers: Qualified Codes: R41.0 - Disorientation, unspecified (2) Compression fracture of T6 vertebra Status: Acute Assessment & Plan: - Ortho was consulted, states that he can do the surgery but needs clearance from Dorothy/Christian (3) Lung cancer Status: Chronic Assessment & Plan: - Follows with Dr [place], CT head neg for Mets to brain Qualifiers: (4) Uncontrolled hypertension Status: Acute (5) COPD (chronic obstructive pulmonary disease) Status: Chronic Clinical Quality Measures DVT/VTE Risk/Contraindication: Risk Factor Score Per Nursin RFS Level Per Nursing on Admit: 4+=Very High TRACY GREGG MD Aug 01, 2019 15:33
--- NOTE | 2019-08-01 15:44 | NUR ---
Palliative Care RN in to see patient. She is more alert this afternoon than she was this morning. I have spoken to her briefly as she continues to be lethargic and mumbly. Son returned to the room and we had a discussion regarding her progression of illness. It is reported that the patient had lived with the son and his until about 3 months ago, when patient reports she was kicked out. She had been doing well until this new compression fracture has caused her to have a significant amount of pain. We talked briefly about her COPD and emphysema. Son reports that she wears it too high because when she get up her saturations drop. But her does not feel that they are ready for Hospice yet. It was reported to this RN that plan is for a cementing of her compression fracture possibly on Thursday.
[2019-08-01] MEDS: PATCH REMOVAL TP SCH (21:01)
[2019-08-02] VITALS (8 sets, daily range): BP systolic 107–130; BP diastolic 40–78
--- NOTE | 2019-08-02 00:12 | NUR ---
This RN called Dr. Pond due to patient becoming increasingly anxious and aggressive. Patient biting 02 sat probe, pulling of oxygen tubing, pulling at lopez catheter and port tubing, despite patient education and attempts to reorient.
[2019-08-02] MEDS ORDERED: HALOPERIDOL 5 MG/ML (HALDOL) AMP ONE (00:15)
[2019-08-02] MEDS ORDERED: HALOPERIDOL 5 MG/ML (HALDOL) AMP IM ONE (00:15)
[2019-08-02] MEDS: meTOprolol 5 MG/5 ML (LOPRESSOR) VIAL IV SCH ×4 (00:40→18:11)
[2019-08-02] MEDS: RT-ALBUTEROL/IPRATROPIUM 3 ML (DUONEB) VIAL INH SCH ×6 (02:08→22:25)
[2019-08-02 03:30] LABS: BASOPHILS % (AUTO) 1 % (0-10); EOSINOPHILS % (AUTO) 1 % (0-10); HEMATOCRIT 31 % (35-52); HEMOGLOBIN 9.8 G/DL (11.5-16.0); LYMPHOCYTES # (AUTO) 0.3 X 10^3 (1.0-4.0); LYMPHOCYTES % (AUTO) 5 % (12-44); MEAN CORPUSCULAR HEMOGLOBIN 31 PG (25-34); MEAN CORPUSCULAR HGB CONC 32 G/DL (32-36); MEAN CORPUSCULAR VOLUME 96 FL (80-99); MEAN PLATELET VOLUME 10.2 FL (7.4-10.4); MONOCYTES # (AUTO) 0.4 X 10^3 (0.0-1.0); MONOCYTES % (AUTO) 7 % (0-12); NEUTROPHILS % (AUTO) 87 % (42-75); PLATELET COUNT 161 10^3/uL (130-400); RED CELL DISTRIBUTION WIDTH 16.1 % (10.0-14.5); WHITE BLOOD COUNT 5.7 10^3/uL (4.3-11.0)
[2019-08-02 03:48] LABS: BUN/CREATININE RATIO 20; CARBON DIOXIDE 31 MMOL/L (21-32); CHLORIDE 106 MMOL/L (98-107); GFR ESTIMATED > 60; GLUCOSE 135 MG/DL (70-105); MAGNESIUM 1.8 MG/DL (1.6-2.4); POTASSIUM 3.5 MMOL/L (3.6-5.0); SODIUM 146 MMOL/L (135-145)
[2019-08-02] MEDS ORDERED: POTASSIUM CL 10MEQ/50ML IVPB 100 ML IV ONE (04:42)
[2019-08-02] MEDS ORDERED: POTASSIUM CL 10MEQ/50ML IVPB 200 ML IV ONE (05:07)
[2019-08-02] MEDS: inSUlin ASPART (NovoLOG) 1 UNIT/0.01 ML (CHARGE PER UNIT) SC SCH ×4 (05:16→22:55)
[2019-08-02] MEDS: POTASSIUM CL 10MEQ/50ML IVPB 50 ML IV SCH ×5 (05:16→08:53)
[2019-08-02] MEDS ORDERED: ZIPRASIDONE 20 MG INJ (GEODON) VIAL IM ONE (05:27)
[2019-08-02] MEDS ORDERED: WATER (STERILE) FOR INJECTION 10 ML ONE ×3 (05:53→22:17)
[2019-08-02] MEDS: ZIPRASIDONE 20 MG INJ (GEODON) VIAL IM SCH ×3 (06:06→22:55)
--- NOTE | 2019-08-02 07:45 | NUR ---
VANCOMYCIN DOSING SCR 0.6 (USED 1.0); CRCL ~ 62; BOLUS VANC 20 MG/KG X 94 KG ~ 2 GM THEN VANC 15 MG/KG ~ 1500 MG Q24H CHECK TROUGH LEVEL BEFORE 3RD DOSE ON 08/04 0700 HOLD DOSE AND CONTACT PHARMACY IF LEVEL IS GREATER THAN 20 OR LESS THAN 10
[2019-08-02] MEDS ORDERED: VANCOMYCIN INJECTION 2,000 MG in NS IV 500 ML 500 ML IV SCH (08:00)
[2019-08-02] MEDS: risperiDONE 1 MG (RisperDAL) TAB PO SCH ×2 (09:06→22:54)
[2019-08-02] MEDS: LIDOCAINE 4% (SALONPAS) PATCH TOP SCH (09:06)
[2019-08-02] MEDS: oxyCODONE/APAP 10/325MG (PERCOCET 10) TABLET PO PRN (09:10)
--- NOTE | 2019-08-02 10:12 | Physical Therapy Daily Note ---
PT Daily Note-Current Subjective Patient is in bed and very confused. Noted labored breathing on 2L O2 NC Pain Numeric Pain Scale: 0-No Pain Location: No Pain Reported Mental Status Patient Orientation: Confused Attachments: Oxygen, Pruett Catheter, IV Transfers SCALE: Activities may be completed with or without assistive devices. 2-Llmvrantgt-wctchiw completes the activity by him/herself with no assistance from a helper. 5-Set-up or Clean-up Assistance-helper sets up or cleans up; patient completes activity. [place] assists only prior to or following the activity. 4-Supervision or Touching Assistance-helper provides verbal cues and/or touching/steadying and/or contact guard assistance as patient completes activity. Assistance may be provided throughout the activity or intermittently. 3-Partial/Moderate Assistance-helper does LESS THAN HALF the effort. [place] lifts, holds or supports trunk or limbs, but provides less than half the effort. 2-Substantial/Maximal Assistance-helper does MORE THAN HALF the effort. [place] lifts or holds trunk or limbs and provides more than half the effort. 7-Srerwyhdk-snyaug does ALL the effort. Patient does none of the effort to complete the activity. Or, the assistance of 2 or more helpers is required for the patient to complete the activity. If activity was not attempted, code reason: 7-Patient Refused. 9-Not Applicable-not attempted and the patient did not perform the activity before the current illness, exacerbation or injury. 10-Not Attempted due to Environmental Limitations-(lack of equipment, weather restraints, etc.). 88-Not Attempted due to Medical Conditions or Safety Concerns. Roll Left to Right (QC): 3 Sit to Lying (QC): 3 Sit to Stand (QC): 3 Chair/Pql-zi-Dzkyg Xfer(QC): 3 Bed to/from Chair: 3 Assessment Patient requires time to complete all functional tasks due to SOA and recovery. SAO2 91% on O2 2L NC. Patient has no c/o back pain at this time. PT [employer] Work[employer] Goals Fpc Goals PT Fpc Goals Time Frame: Aug 05, 2019 Sit to Lying (QC): 4 Lying-Sitting on Side/Bed(QC): 4 Sit to Stand (QC): 4 Roll Left to Right (QC): 4 Chair/Zkv-as-Qxlap Xfer(QC): 4 Walk 50ft with 2 Turns (QC): 4 PT Plan Treatment/Plan Treatment Plan: Continue Plan of Care Treatment Plan: Bed Mobility, Education, Functional Activity Sravani, Functional Strength, Gait, Safety, Therapeutic Exercise, Transfers Treatment Duration: Aug 12, 2019 Frequency: 6 times per week Estimated Hrs Per Day: .5 hour per day Patient and/or Family Agrees t: Yes Time/GCodes Time In: 940 Time Out: 954 Total Billed Treatment Time: 14 Total Billed Treatment 1 visit FA 14 min JAMES REHMAN PT Aug 02, 2019 10:12
[2019-08-02] MEDS: ENOXAPARIN 40 MG/0.4 ML (LOVENOX) SYR SQ SCH (11:54)
[2019-08-02] MEDS: KETOROLAC 30 MG/ML VIAL IVP PRN ×2 (12:01→19:11)
--- NOTE | 2019-08-02 13:40 | Progress Note - Cardiology ---
Cardiology SOAP Progress Note Subjective: Lying in bed with sitter at the bedside d/t intermittent confusion. She is drowsy at this time, but awakens when you call her name. C/O back pain. Continues to feel SOB. Objective: I&O/Vital Signs 08/02/19 08/02/19 08/02/19 08/02/19 08:00 08:10 10:48 15:18 Pulse 103 Resp 22 B/P (MAP) 118/66 (83) Pulse Ox 95 92 90 O2 Delivery Nasal Cannula Nasal Cannula Nasal Cannula Nasal Cannula O2 Flow Rate 2.00 2.00 2.00 2.00 08/02/19 08/02/19 08/02/19 16:08 18:59 19:37 Temp 36.5 36.2 Pulse 104 110 Resp 26 24 B/P (MAP) 107/51 (69) 125/60 (81) Pulse Ox 95 90 95 O2 Delivery Nasal Cannula Nasal Cannula Nasal Cannula O2 Flow Rate 2.00 2.00 2.00 08/02/19 00:00 Intake Total 1540 ml Output Total 2400 ml Balance -860 ml Weight (Pounds): 200 Weight (Ounces): 0.8 Weight (Calculated Kilograms): 90.542553 Constitutional: well-developed, well-nourished, other (Somnolent, but awakens and answred questions, appears oriented x 3) Respiratory: chest expansion is symmetric, chest is bilaterally symmetric, rhonchi (scattered), other (fair air entry) Cardiovascular: regular rate-rhythm; No JVD; S1 and S2 Gastrointestional: No tender; soft, round Extremities: no lower extremity edema bilateral Neurologic/Psychiatric: grossly intact Skin: No rash on exposed areas, No ulcerations on exposed areas Results/Procedures: Labs Laboratory Tests 08/02/19 03:08: White Blood Count 5.7, Red Blood Count 3.19L, Hemoglobin 9.8L, Hematocrit 31L, Mean Corpuscular Volume 96, Mean Corpuscular Hemoglobin 31, Mean Corpuscular Hemoglobin Concent 32, Red Cell Distribution Width 16.1H, Platelet Count 161, Mean Platelet Volume 10.2, Neutrophils (%) (Auto) 87H, Lymphocytes (%) (Auto) 5L , Monocytes (%) (Auto) 7, Eosinophils (%) (Auto) 1, Basophils (%) (Auto) 1, Neutrophils # (Auto) 5.0, Lymphocytes # (Auto) 0.3L, Monocytes # (Auto) 0.4, Eosinophils # (Auto) 0.0, Basophils # (Auto) 0.0, Sodium Level 146H, Potassium Level 3.5L, Chloride Level 106, Carbon Dioxide Level 31, Anion Gap 9, Blood Urea Nitrogen 12, Creatinine 0.60, Estimat Glomerular Filtration Rate > 60, BUN/Creatinine Ratio 20, Glucose Level 135H, Calcium Level 8.0L, Phosphorus Level 3.0, Magnesium Level 1.8 08/02/19 10:45: Glucometer 168H 08/02/19 16:08: Glucometer 144H Microbiology 07/26/19 Blood Culture - Final, Complete No growth 07/27/19 MRSA Screen - Final, Complete MRSA not isolated 07/26/19 Urine Culture - Final, Complete 3 or more isolates Procedures NAME: RAI ELLIS [facility] REC#: [id number] PT STATUS: ADM IN : 1950 PHYSICIAN: KARIME ERNANDEZ DO ADMIT DATE: 07/26/19/ICU Signed Date of Exam: 08/01/19 CHEST 1 VIEW, AP/PA ONLY INDICATION: Respiratory failure. COMPARISON: 07/30/2019. FINDINGS: Single view of the chest demonstrates stable basilar atelectasis. The heart is prominent without pulmonary edema. There is no pneumothorax or effusion. Position of the Port-A-Cath is unchanged. IMPRESSION: Unchanged aeration of the lungs. Dictated by: Dictated on workstation # [id number] Dict: 08/01/1939 Trans: 08/01/19905 Interpreted by: DESIREE CUELLO Electronically signed by: DESIREE CUELLO 08/01/19905 A/P: Assessment: Paroxysmal atrial fibrillation with RVR (first documented on EKG of 07-27-19) - currently SR Echocardiogram of Jul 27, [address] Arevalo showed LVEF 55-65%. PASP 20-25mmHg. Mild TR. Acute respiratory failure with acute exacerbation of COPD - management per [facility] Pre-renal azotemia, likely due to intravasc vol depletion due to diuretics Anxiety Metabolic acidosis with acute respiratory failure - improved Hx of Lung CA- followed by Dr. Birmingham. Acute renal failure - resolved H/O tobaccoism Obesity Chronic back pain Plan: * Complex management due to multiple comorbidities * Cardiac meds have been change to parenteral: iv bb, sc enoxaparin (because she was taking oral meds only sporadically) * Monitor lab closely * Replace electrolytes as indicated * Treatment of COPD and resp failure is with Pulmonary and Med Svces * Surgical services is requesting cardiac clearance for consideration of kyphoplasty - further recs will per Dr. Campbell Physician Assessment Physician Assessment Denies cp. Has chronic back pain. Denies palp or syncope. Has chronic shortness of breath Lungs: fair bilat air entry, prolonged exp Cor: reg Ext: mild edema A&R * As documented in our note above that I updated (italics) and as noted below * Monitor labs * I reviewed her CV issues with her and her son and answered questions CACHORRO SHERMAN RN LACTATION CONSULTANT Aug 02, 2019 13:40 CARLOS ENRIQUE CAMPBELL MD [facility] Aug 02, 2019 19:54
--- NOTE | 2019-08-02 14:21 | NUR ---
Palliative Care RN in to see patient. She is laying on her right side in her bed. Awakens to verbal but is not answering questions. I did see her sitting up in the chair. Sat for approximately 1hour 15 min. No indication that she is going to have surgery tomorrow.
--- NOTE | 2019-08-02 15:04 | Occ Therapy Progress Note ---
Therapy Progress Note 08/01/19: late entry Pt transferred to ICU due to decrease in medical status. New OT orders needed for OT eval/ treat. CARMENZA HINSON OTR Aug 02, 2019 15:04
--- NOTE | 2019-08-02 15:27 | Pulmonary Progress Note ---
Subjective Time Seen by a Provider: 06:00 Subjective/Events-last exam PT has severe agitation anytime she is awake. She pulls at lines and IVs. RN states pt refuses PO meds. Sepsis Event Evaluation Height, Weight, BMI Height: 5'5.00" Weight: 200lbs. 0.8oz. 90.969137tv; 32.00 BMI Method: Exam Exam Vital Signs Date Time Temp Pulse Resp B/P (MAP) Pulse Ox O2 Delivery O2 Flow Rate FiO2 08/02/19 10:48 92 Nasal Cannula 2.00 08/02/19 08:10 103 22 118/66 (83) 95 Nasal Cannula 2.00 08/02/19 08:00 Nasal Cannula 2.00 08/02/19 07:05 Nasal Cannula 2.00 08/02/19 06:36 94 Nasal Cannula 3.00 08/02/19 05:18 111 130/67 (88) 08/02/19 05:14 109 21 130/67 (88) Nasal Cannula 3.00 08/02/19 03:20 36.8 115 25 107/40 (62) 92 Nasal Cannula 3.00 08/02/19 02:09 Nasal Cannula 2.00 08/02/19 01:00 103 08/02/19 00:00 36.4 122 25 123/78 (93) 96 Nasal Cannula 3.00 08/01/19 23:59 124 27 106/67 (80) Nasal Cannula 2.00 08/01/19 21:04 88 Room Air 08/01/19 21:00 Nasal Cannula 2.00 08/01/19 20:00 105 30 144/61 (88) 93 Nasal Cannula 2.00 08/01/19 20:00 36.6 08/01/19 19:05 98 Nasal Cannula 2.00 08/01/19 19:01 100 08/01/19 17:00 110 14 137/75 (95) 94 Nasal Cannula 2.00 08/01/19 16:00 36.5 92 08/01/19 16:00 105 16 133/68 (89) Nasal Cannula 2.00 08/01/19 16:00 108 13 Nasal Cannula 2.00 I & O 08/02/19 07:00 Intake Total 1940 ml Output Total 4650 ml Balance -2710 ml Height & Weight Height: 5'5.00" Weight: 200lbs. 0.8oz. 90.326556rt; 32.00 BMI Method: General Appearance: Other (sedate) HEENT: PERRL/EOMI, TMs Normal Neck: Full Range of Motion, Normal Inspection Respiratory: Lungs Clear Cardiovascular: Regular Rate, Rhythm Capillary Refill: Less Than 3 Seconds Peripheral Pulses: 2+ Radial Pulses (L) Gastrointestinal: non tender, soft Extremity: No Calf Tenderness, Pedal Edema Neurologic/Psychiatric: No Motor/Sensory Deficits Skin: Normal Color, Warm/Dry Lymphatic: No Adenopathy Results Lab Laboratory Tests 08/01/19 03:46 08/02/19 03:08 Assessment/Plan Assessment/Plan Acute respiratory distress with sinus tach -Currently on 2 liter NC with Sp02 of 99% -Solumedrol - D/C secondary to acute psychosis Psychosis - probably acute on chronic -CT OF BRAIN WITH/WITHOUT CONTRAST TO R/O METS was negative . -Risperadol, Geodon - - Dilaudid PRN -Ativan PRN -end tidal C02 monitoring stage IA non small cell lung carcinoma. -Oncology following Acute pain with compression fracture -Pain control -Possible kyphoplasty once pt is stable Sinus tach- probably secondary to psychosis -Start LR at 30cc/hr COPDAE -Duoneb Q4 -advair Metabolic lactic acidosis - improving Acute renal failure- improving KARIME ERNANDEZ DO Aug 02, 2019 15:27
--- NOTE | 2019-08-02 18:00 | Progress Note ---
Subjective Subjective/Events-last exam Patient awake today. states that she has pain everywhere but mostly in her back. She states laying on her side is the most comfortable. States that she does not remember talking to the ortho doctor. She is taking PO occasionally but refuses mostly. Review of Systems Pulmonary: Cough Cardiovascular: No: Chest Pain, Palpitations Gastrointestinal: No: Nausea, Vomiting, Abdominal Pain Musculoskeletal: back pain Neurological: Confusion Objective Exam Last Set of Vital Signs Vital Signs Date Time Temp Pulse Resp B/P (MAP) Pulse Ox O2 Delivery O2 Flow Rate FiO2 08/02/19 16:08 36.5 104 26 107/51 (69) 95 Nasal Cannula 2.00 07/31/19 09:00 28 Capillary Refill : Less Than 3 Seconds I&O Intake and Output 08/02/19 00:00 Intake Total 2960 ml Output Total 4350 ml Balance -1390 ml Intake Oral 250 ml IV Total 2710 ml Output Urine Total 4350 ml General: Alert, Oriented X3, Cooperative, No Acute Distress HEENT: Mucous Memb Moist/[place] Lungs: Clear to Auscultation, Normal Air Movement Heart: Regular Rate, No Murmurs Abdomen: Normal Bowel Sounds, Soft, No Tenderness, No Masses Extremities: No Edema, No Tenderness/Swelling Other physical findings ttp along thoracic and lumbar spine, will not move from side laying Results/Procedures Lab Laboratory Tests 08/02/19 03:08: White Blood Count 5.7, Red Blood Count 3.19L, Hemoglobin 9.8L, Hematocrit 31L, Mean Corpuscular Volume 96, Mean Corpuscular Hemoglobin 31, Mean Corpuscular Hemoglobin Concent 32, Red Cell Distribution Width 16.1H, Platelet Count 161, Mean Platelet Volume 10.2, Neutrophils (%) (Auto) 87H, Lymphocytes (%) (Auto) 5L , Monocytes (%) (Auto) 7, Eosinophils (%) (Auto) 1, Basophils (%) (Auto) 1, Neutrophils # (Auto) 5.0, Lymphocytes # (Auto) 0.3L, Monocytes # (Auto) 0.4, Eosinophils # (Auto) 0.0, Basophils # (Auto) 0.0, Sodium Level 146H, Potassium Level 3.5L, Chloride Level 106, Carbon Dioxide Level 31, Anion Gap 9, Blood Urea Nitrogen 12, Creatinine 0.60, Estimat Glomerular Filtration Rate > 60, BUN/Cre atinine Ratio 20, Glucose Level 135H, Calcium Level 8.0L, Phosphorus Level 3.0, Magnesium Level 1.8 08/02/19 10:45: Glucometer 168H 08/02/19 16:08: Glucometer 144H Microbiology 07/26/19 Blood Culture - Final, Complete No growth 07/27/19 MRSA Screen - Final, Complete MRSA not isolated 07/26/19 Urine Culture - Final, Complete 3 or more isolates Assessment/Plan Assessment/Plan (1) Altered mental status Status: Acute Assessment & Plan: - Acute psychosis, Dr De La Cruz has patient on geodon 08/02: improved slightly but still having periods of extreme agitation Qualifiers: Qualified Codes: R41.0 - Disorientation, unspecified (2) Compression fracture of T6 vertebra Status: Acute Assessment & Plan: - Ortho was consulted, states that he can do the surgery but needs clearance from Dorothy/Christian (3) Lung cancer Status: Chronic Assessment & Plan: - Follows with Dr [place], CT head neg for Mets to brain Qualifiers: (4) Uncontrolled hypertension Status: Acute (5) COPD (chronic obstructive pulmonary disease) Status: Chronic Clinical Quality Measures DVT/VTE Risk/Contraindication: Risk Factor Score Per Nursin RFS Level Per Nursing on Admit: 4+=Very High TRACY GREGG MD Aug 02, 2019 18:00
[2019-08-02] MEDS: PATCH REMOVAL TP SCH (23:18)
[2019-08-03] VITALS (7 sets, daily range): BP systolic 104–151; BP diastolic 53–74
[2019-08-03] MEDS: meTOprolol 5 MG/5 ML (LOPRESSOR) VIAL IV SCH ×4 (00:52→17:44)
[2019-08-03] MEDS: RT-ALBUTEROL/IPRATROPIUM 3 ML (DUONEB) VIAL INH SCH ×6 (01:23→21:38)
[2019-08-03] MEDS: KETOROLAC 30 MG/ML VIAL IVP PRN (03:17)
[2019-08-03 05:18] LABS: BASOPHILS % (AUTO) 0 % (0-10); EOSINOPHILS % (AUTO) 1 % (0-10); HEMATOCRIT 28 % (35-52); HEMOGLOBIN 8.7 G/DL (11.5-16.0); LYMPHOCYTES # (AUTO) 0.3 X 10^3 (1.0-4.0); LYMPHOCYTES % (AUTO) 6 % (12-44); MEAN CORPUSCULAR HEMOGLOBIN 31 PG (25-34); MEAN CORPUSCULAR HGB CONC 31 G/DL (32-36); MEAN CORPUSCULAR VOLUME 97 FL (80-99); MEAN PLATELET VOLUME 9.9 FL (7.4-10.4); MONOCYTES # (AUTO) 0.4 X 10^3 (0.0-1.0); MONOCYTES % (AUTO) 7 % (0-12); NEUTROPHILS # (AUTO) 4.9 X 10^3 (1.8-7.8); NEUTROPHILS % (AUTO) 87 % (42-75); PLATELET COUNT 171 10^3/uL (130-400); RED CELL DISTRIBUTION WIDTH 16.3 % (10.0-14.5); WHITE BLOOD COUNT 5.7 10^3/uL (4.3-11.0)
[2019-08-03 05:31] LABS: BUN/CREATININE RATIO 17; CARBON DIOXIDE 30 MMOL/L (21-32); CHLORIDE 108 MMOL/L (98-107); GFR ESTIMATED > 60; GLUCOSE 97 MG/DL (70-105); MAGNESIUM 1.4 MG/DL (1.6-2.4); PHOSPHORUS 2.7 MG/DL (2.3-4.7); POTASSIUM 3.4 MMOL/L (3.6-5.0); SODIUM 148 MMOL/L (135-145)
[2019-08-03] MEDS: inSUlin ASPART (NovoLOG) 1 UNIT/0.01 ML (CHARGE PER UNIT) SC SCH ×4 (06:35→21:12)
[2019-08-03] MEDS ORDERED: WATER (STERILE) FOR INJECTION 10 ML ONE ×2 (06:44→20:11)
[2019-08-03] MEDS: ZIPRASIDONE 20 MG INJ (GEODON) VIAL IM SCH (06:59)
--- NOTE | 2019-08-03 07:30 | Diagnostic Imaging Report ---
INDICATION: COPD and lung cancer with respiratory failure. Comparison made with prior examination from 08/01/2019. FINDINGS: Heart size is stable. There are patchy bibasilar infiltrates left greater than right. There is no pleural effusion or pneumothorax. The mediastinum is unremarkable. Ercpgb-j-Esnx catheter overlies the left hemithorax. IMPRESSION: Bibasilar infiltrates left greater than right. Dictated by: Dictated on workstation # [id number]
[2019-08-03] MEDS ORDERED: VANCOMYCIN INJECTION 1,500 MG in NS IV 500 ML 500 ML IV SCH (08:00)
[2019-08-03] MEDS: LIDOCAINE 4% (SALONPAS) PATCH TOP SCH (08:41)
[2019-08-03] MEDS: risperiDONE 1 MG (RisperDAL) TAB PO SCH ×2 (08:41→08:44)
--- NOTE | 2019-08-03 11:25 | Pulmonary Progress Note ---
Subjective Time Seen by a Provider: 11:22 Sepsis Event Evaluation Height, Weight, BMI Height: 5'5.00" Weight: 200lbs. 0.8oz. 90.159273yg; 32.00 BMI Method: Exam Exam Vital Signs Date Time Temp Pulse Resp B/P (MAP) Pulse Ox O2 Delivery O2 Flow Rate FiO2 08/03/19 10:17 92 Nasal Cannula 2.00 08/03/19 09:45 Nasal Cannula 2.00 08/03/19 08:00 36.0 113 24 129/56 (80) 94 Nasal Cannula 2.00 08/03/19 07:00 114 08/03/19 05:59 93 Nasal Cannula 2.00 08/03/19 04:00 36.5 108 24 111/69 (83) 93 Nasal Cannula 2.00 08/03/19 02:31 111 08/03/19 01:23 93 Nasal Cannula 2.00 08/03/19 00:00 36.4 120 21 104/53 (70) 94 Nasal Cannula 2.00 08/02/19 22:25 93 Nasal Cannula 2.00 08/02/19 20:30 Nasal Cannula 2.00 08/02/19 19:37 36.2 110 24 125/60 (81) 95 Nasal Cannula 2.00 08/02/19 18:59 90 Nasal Cannula 2.00 08/02/19 16:08 36.5 104 26 107/51 (69) 95 Nasal Cannula 2.00 08/02/19 15:18 90 Nasal Cannula 2.00 I & O 08/03/19 07:00 Intake Total 1962.4 ml Output Total 3650 ml Balance -1687.6 ml Height & Weight Height: 5'5.00" Weight: 200lbs. 0.8oz. 90.827883qb; 32.00 BMI Method: General Appearance: No Apparent Distress, Other (sedate) HEENT: PERRL/EOMI, TMs Normal Neck: Full Range of Motion, Normal Inspection Respiratory: Lungs Clear Cardiovascular: Regular Rate, Rhythm Capillary Refill: Less Than 3 Seconds Peripheral Pulses: 2+ Radial Pulses (L) Gastrointestinal: non tender, soft Extremity: No Calf Tenderness, Pedal Edema Neurologic/Psychiatric: No Motor/Sensory Deficits Skin: Normal Color, Warm/Dry Lymphatic: No Adenopathy Results Lab Laboratory Tests 08/02/19 03:08 08/03/19 05:06 Assessment/Plan Assessment/Plan COPDAE -Duoneb Q4 -advair -Solumedrol d/c'd secondary to psychosis -Pt is ok from pulmonary standpoint for surgery Atelectasis -Increase activity as tolerated -IS -Check BNP Psychosis - probably acute on chronic -CT OF BRAIN WITH/WITHOUT CONTRAST TO R/O METS was negative . -Will defer tx to Dr. Pond since pt is out of ICU now. -Risperadol, Geodon - - Dilaudid PRN -Ativan PRN stage IA non small cell lung carcinoma. -Oncology following Acute pain with compression fracture -Pain control -Possible kyphoplasty once pt is stable KARIME ERNANDEZ DO Aug 03, 2019 11:25
--- NOTE | 2019-08-03 11:39 | Physical Therapy Daily Note ---
PT Daily Note-Current Subjective Pt. approached x 2 for Rx this date. Pt. has one on one sitter who reports pt. is confused and at times resistive. Initially sitter recommends no Rx as pt. had just settled from an episode . At second trial pt. verbally agrees to participate but resists physically when attempts were made to assist pt. to a position for supine therex. Transfers SCALE: Activities may be completed with or without assistive devices. 8-Qxeqqyxkbm-fsrauov completes the activity by him/herself with no assistance from a helper. 5-Set-up or Clean-up Assistance-helper sets up or cleans up; patient completes activity. [place] assists only prior to or following the activity. 4-Supervision or Touching Assistance-helper provides verbal cues and/or touching/steadying and/or contact guard assistance as patient completes activity. Assistance may be provided throughout the activity or intermittently. 3-Partial/Moderate Assistance-helper does LESS THAN HALF the effort. [place] lifts, holds or supports trunk or limbs, but provides less than half the effort. 2-Substantial/Maximal Assistance-helper does MORE THAN HALF the effort. [place] lifts or holds trunk or limbs and provides more than half the effort. 0-Lhnpnevxa-zvcnwv does ALL the effort. Patient does none of the effort to complete the activity. Or, the assistance of 2 or more helpers is required for the patient to complete the activity. If activity was not attempted, code reason: 7-Patient Refused. 9-Not Applicable-not attempted and the patient did not perform the activity before the current illness, exacerbation or injury. 10-Not Attempted due to Environmental Limitations-(lack of equipment, weather restraints, etc.). 88-Not Attempted due to Medical Conditions or Safety Concerns. Treatments pt. verbally states she will participate but physically resists . Pt. was assisted to get O2 cannula back in her nose at it had slid off near out of nose, pt. resists this and lays to extreme right side, eyes closed etc. Assessment Current Status: Refused Treatment PT Turkey Farmer Goals Care Home Goals PT Care Home Goals Time Frame: Aug 05, 2019 Sit to Lying (QC): 4 Lying-Sitting on Side/Bed(QC): 4 Sit to Stand (QC): 4 Roll Left to Right (QC): 4 Chair/Lus-hm-Lvvjm Xfer(QC): 4 Walk 50ft with 2 Turns (QC): 4 PT Plan Treatment/Plan Treatment Plan: Continue Plan of Care Treatment Plan: Bed Mobility, Education, Functional Activity Sravani, Functional Strength, Gait, Safety, Therapeutic Exercise, Transfers Treatment Duration: Aug 12, 2019 Frequency: 6 times per week Estimated Hrs Per Day: .5 hour per day Patient and/or Family Agrees t: Yes Time/GCodes Time In: 1135 Time Out: 1140 Total Billed Treatment Time: 5 Total Billed Treatment 1,no Rx, No chg NITO [place] [employer] Aug 03, 2019 11:39
[2019-08-03] MEDS: ENOXAPARIN 40 MG/0.4 ML (LOVENOX) SYR SQ SCH (11:54)
--- NOTE | 2019-08-03 12:23 | NUR ---
RD FOLLOW-UP PMHx: COPD, HTN, chronic constipation PT INTERACTION: Pt was semi-awake and pleasant during follow-up. Pt states currently eating "okay." Note pt has been consuming <50% of meals x2d, per chart review. Pt states no issues with n/v/c/d since last assessment. ABNORMAL NUTRITION-RELATED LAB VALUES: Hgb 8.7 (L); Hct 28 (L); K 3.4 (L); Ca 8.0 (L); Mg 1.4 (L); Na 148 (H); Cl 108 (H) Est. kcal needs: 8983-8613 kcal (15-20 kcal/kg) Est. Pro needs: 79-99 g Pro (0.8-1.0 g Pro/kg) PES STATEMENT: Inadequate oral intake (NI-2.1) related to loss of appetite as evidenced by pt interview | <50% meals consumed x2d INTERVENTION: Continue with current diet order of 2000mg sodium diet. Add Ensure Enlive (vary) to meals TID. Provides 350 kcal and 20 g Pro per serving. Encouraged pt to eat when able. MONITOR/EVALUATE: PO Intake; Supplement Tolerance; Plan of Care; Hydration Status; Weight Status; Lab Values Hugo Fernandes, MS, RD, LD Ext. [phone]
--- NOTE | 2019-08-03 12:53 | Cardiology Progress Note ---
Subjective Date Seen by Provider: Aug 03, 2019 Time Seen by Provider: 12:49 Subjective/Events-last exam Patient with sitter, complaining of back pain, denies any chest pain. Complaining of some dyspnea. Review of Systems General: No Chills, No Night Sweats, No Fatigue, No Malaise, No Appetite, No Other HEENT: No Head Aches, No Visual Changes, No Eye Pain, No Ear Pain, No Dysphasia, No Sinus Congestion, No Post Nasal Drip, No Sore Throat, No Other Pulmonary: Dyspnea; No Cough, No Pleuritic Chest Pain, No Other Cardiovascular: No: Chest Pain, Palpitations, Orthopnea, Paroxysmal Noc. Dyspnea, Edema, Lt Headedness, Other Objective-Cardiology Exam Last Set of Vital Signs Vital Signs 07/31/19 08/04/19 09:00 07:48 Temp 37.1 Pulse 102 Resp 20 B/P (MAP) 135/61 (85) Pulse Ox 97 O2 Delivery Nasal Cannula O2 Flow Rate 3.00 FiO2 28 Capillary Refill : Less Than 3 Seconds I&O Intake and Output 08/04/19 00:00 Intake Total 2075 ml Output Total 3750 ml Balance -1675 ml Intake Oral 1560 ml IV Total 515 ml Output Urine Total 3750 ml General: Alert, Oriented X3, Cooperative, No Acute Distress HEENT: Mucous Memb Moist/[place] Neck: Supple, No JVD, No Thyromegaly Lungs: Clear to Auscultation, Normal Air Movement Heart: Regular Rate, Normal S1, Normal S2, No Murmurs Abdomen: Normal Bowel Sounds, Soft, No Tenderness, No Masses Extremities: No Edema, No Tenderness/Swelling Skin: No Rashes, No Breakdown, No Significant Lesion Neuro: Normal Gait, Normal Speech, Strength at 5/5 X4 Ext, Normal Tone, Sensation Intact Psych/Mental Status: Mental Status NL, Mood NL Results Lab Laboratory Tests 08/04/19 07:00 A/P-Cardiology Admission Diagnosis Afib with RVR AE COPD Hx lung CA Acute renal failure Assessment/Plan Paroxysmal atrial fibrillation with rapid response returned to sinus tachycardia, slightly tachycardic this morning. Continue to monitor Acute respiratory failure with acute exacerbation of COPD. Significant anxiety, sedated at this time and feeling better. Back pain, T6 fracture, planning for kyphoplasty with Dr. Wallace, requesting cardiac clearance. Metabolic acidosis with acute respiratory failure, better at this time. AE COPD, Dr. De La Cruz following. Continue to monitor. Hx of Lung CA- followed by Dr. Birmingham. Acute renal failure- continue IVFs, continue to monitor. Ex tobaccoism Obesity This is a late entry for the evaluation Patient was seen and evaluated with Cheyanne, examination performed, management plan was discussed, agree with the current scribed note, I made few changes to the note using Italic font Still having some shortness of breath. Denied any chest pain, still having episodes of tachycardia Using oxygen at this time and having some dyspnea Possible kyphoplasty with Dr. Wallace Clinical Quality Measures DVT/VTE Risk/Contraindication: Risk Factor Score Per Nursin RFS Level Per Nursing on Admit: 4+=Very High Supervisory-Addendum Brief Supervisory Addendum Participated in pt care: history, MDM, physical Personally performed: exam, history, MDM Care discussed with: CHEYANNE ARTHUR Aug 03, 2019 12:53 CHAGO EISENBERG MD Aug 04, 2019 08:32
[2019-08-03] MEDS ORDERED: FUROSEMIDE 40 MG/4 ML INJ (LASIX) IVP NR (15:45)
--- NOTE | 2019-08-03 17:50 | NUR ---
PT ALERT AND ORIENTED x4 AT THIS TIME, CONSENT SIGNED AND PLACED IN CHART.
[2019-08-03] MEDS ORDERED: POLYETHYLENE GLYCOL 17 GM (MIRALAX) PACK PO PRN (18:30)
--- NOTE | 2019-08-03 21:00 | NUR ---
PT ALERT AND ORIENTED TIME 4 AT THIS TIME, REFUSES HER RISPERDAL AND ANDREE, STATES, "I'M AT THE END OF THE ROAD AND I DON'T WANT TO GO THROUGH ALL THAT."DR GREGG NOTIFIED. WILL CONTINUE TO MONITOR
--- NOTE | 2019-08-03 22:32 | Progress Note ---
Subjective Subjective/Events-last exam Patient more awake this AM. States that her back pain has not changed much. She did sit up in chair for several hrs this AM and stated that it made the pain in her back. Tolerating PO diet. Has not been up walking much. Review of Systems Pulmonary: Dyspnea Cardiovascular: No: Chest Pain, Palpitations Gastrointestinal: No: Nausea, Vomiting, Abdominal Pain Musculoskeletal: back pain Neurological: Confusion (improving) Objective Exam Last Set of Vital Signs Vital Signs Date Time Temp Pulse Resp B/P (MAP) Pulse Ox O2 Delivery O2 Flow Rate FiO2 08/03/19 21:38 92 Nasal Cannula 2.00 08/03/19 20:00 36.8 114 22 109/54 (72) 07/31/19 09:00 28 Capillary Refill : Less Than 3 Seconds I&O Intake and Output 08/03/19 00:00 Intake Total 1962.4 ml Output Total 3950 ml Balance -1987.6 ml Intake Oral 1140 ml IV Total 822.4 ml Output Urine Total 3950 ml General: Alert, Cooperative, No Acute Distress Lungs: Clear to Auscultation, Normal Air Movement Heart: Regular Rate, No Murmurs Abdomen: Normal Bowel Sounds, Soft, No Tenderness, No Masses Extremities: No Edema, No Tenderness/Swelling Other physical findings ttp along thoracic back Results/Procedures Lab Laboratory Tests 08/03/19 05:06: White Blood Count 5.7, Red Blood Count 2.85L, Hemoglobin 8.7L, Hematocrit 28L, Mean Corpuscular Volume 97, Mean Corpuscular Hemoglobin 31, Mean Corpuscular Hemoglobin Concent 31L, Red Cell Distribution Width 16.3H, Platelet Count 171, Mean Platelet Volume 9.9, Neutrophils (%) (Auto) 87H, Lymphocytes (%) (Auto) 6L, Monocytes (%) (Auto) 7, Eosinophils (%) (Auto) 1, Basophils (%) (Auto) 0, Neutrophils # (Auto) 4.9, Lymphocytes # (Auto) 0.3L, Monocytes # (Auto) 0.4, Eosinophils # (Auto) 0.0, Basophils # (Auto) 0.0, Sodium Level 148H, Potassium Level 3.4L, Chloride Level 108H, Carbon Dioxide Level 30, Anion Gap 10, Blood Urea Nitrogen 10, Creatinine 0.60, Estimat Glomerular Filtration Rate > 60, BUN/Creatinine Ratio 17, Glucose Level 97, Calcium Level 8.0L, Phosphorus Level 2.7, Magnesium Level 1.4L, B-Type Natriuretic Peptide 110.2H Microbiology 07/26/19 Blood Culture - Final, Complete No growth 07/27/19 MRSA Screen - Final, Complete MRSA not isolated 07/26/19 Urine Culture - Final, Complete 3 or more isolates Assessment/Plan Assessment/Plan (1) Altered mental status Status: Acute Assessment & Plan: - Acute psychosis, Dr De La Cruz has patient on geodon 08/02: improved slightly but still having periods of extreme agitation 08/03: improving, will decrease Geodon and Risperidol and continue to monitor Qualifiers: Qualified Codes: R41.0 - Disorientation, unspecified (2) Compression fracture of T6 vertebra Status: Acute Assessment & Plan: - Ortho was consulted, states that he can do the surgery but needs clearance from Dorothy/Christian 08/03: Waiting on cardiac clearance, Dr De La Cruz has cleared patient for surgery (3) Lung cancer Status: Chronic Assessment & Plan: - Follows with Dr Birmingham, CT head neg for Mets to brain Qualifiers: (4) Uncontrolled hypertension Status: Acute (5) COPD (chronic obstructive pulmonary disease) Status: Chronic Clinical Quality Measures DVT/VTE Risk/Contraindication: Risk Factor Score Per Nursin RFS Level Per Nursing on Admit: 4+=Very High TRACY GREGG MD Aug 03, 2019 22:32
[2019-08-03] MEDS: PATCH REMOVAL TP SCH (23:33)
[2019-08-04] MEDS: meTOprolol 5 MG/5 ML (LOPRESSOR) VIAL IV SCH ×5 (00:21→23:24)
[2019-08-04] MEDS: RT-ALBUTEROL/IPRATROPIUM 3 ML (DUONEB) VIAL INH SCH ×5 (01:44→19:11)
[2019-08-04 03:48] VITALS: BP 122/59
[2019-08-04] MEDS: risperiDONE 1 MG (RisperDAL) TAB PO SCH ×3 (05:36→20:32)
[2019-08-04] MEDS: ZIPRASIDONE 20 MG INJ (GEODON) VIAL IM SCH ×3 (05:36→20:31)
--- NOTE | 2019-08-04 06:06 | Pulmonary Progress Note ---
Subjective Time Seen by a Provider: 06:06 Subjective/Events-last exam PT is much improved. Sepsis Event Evaluation Height, Weight, BMI Height: 5'5.00" Weight: 200lbs. 0.8oz. 90.441601dv; 32.00 BMI Method: Exam Exam Vital Signs Date Time Temp Pulse Resp B/P (MAP) Pulse Ox O2 Delivery O2 Flow Rate FiO2 08/04/19 03:48 36.5 117 24 122/59 (80) 99 Nasal Cannula 3.00 08/04/19 01:45 96 Nasal Cannula 2.00 08/04/19 00:41 105 08/03/19 23:33 36.4 120 22 114/74 (87) 98 Nasal Cannula 3.00 08/03/19 21:38 92 Nasal Cannula 2.00 08/03/19 21:10 Nasal Cannula 3.00 08/03/19 20:00 36.8 114 22 109/54 (72) 97 Nasal Cannula 2.00 08/03/19 19:02 106 08/03/19 18:10 91 Nasal Cannula 5.00 08/03/19 15:46 36.5 116 22 151/63 (92) 100 Nasal Cannula 2.00 08/03/19 15:22 98 Nasal Cannula 5.00 08/03/19 12:21 105 08/03/19 12:00 36.1 104 22 118/59 (78) 94 Nasal Cannula 2.00 08/03/19 10:17 92 Nasal Cannula 2.00 08/03/19 09:45 Nasal Cannula 2.00 08/03/19 08:00 36.0 113 24 129/56 (80) 94 Nasal Cannula 2.00 08/03/19 07:00 114 I & O 08/04/19 07:00 Intake Total 1975 ml Output Total 2350 ml Balance -375 ml Height & Weight Height: 5'5.00" Weight: 200lbs. 0.8oz. 90.125540hr; 32.00 BMI Method: General Appearance: No Apparent Distress HEENT: PERRL/EOMI, TMs Normal Neck: Full Range of Motion, Normal Inspection Respiratory: Lungs Clear Cardiovascular: Regular Rate, Rhythm Capillary Refill: Less Than 3 Seconds Peripheral Pulses: 2+ Radial Pulses (L) Gastrointestinal: non tender, soft Extremity: No Calf Tenderness, Pedal Edema Neurologic/Psychiatric: Alert, Oriented x3, No Motor/Sensory Deficits Skin: Normal Color, Warm/Dry Lymphatic: No Adenopathy Results Lab Laboratory Tests 08/03/19 05:06 Assessment/Plan Assessment/Plan COPDAE -Duoneb Q4 -advair -Solumedrol d/c'd secondary to psychosis -Pt is ok from pulmonary standpoint for surgery Atelectasis -Increase activity as tolerated -IS -Check BNP Psychosis - probably acute on chronic -CT OF BRAIN WITH/WITHOUT CONTRAST TO R/O METS was negative . -Will defer tx to Dr. Pond since pt is out of ICU now. -Risperadol, Geodon - - Dilaudid PRN -Ativan PRN stage IA non small cell lung carcinoma. -Oncology following Acute pain with compression fracture -Pain control -Possible kyphoplasty once pt is stable KARIME ERNANDEZ DO Aug 04, 2019 06:06
[2019-08-04] MEDS: inSUlin ASPART (NovoLOG) 1 UNIT/0.01 ML (CHARGE PER UNIT) SC SCH ×4 (06:14→21:02)
--- NOTE | 2019-08-04 06:53 | NUR ---
THIS NURSE TALKED TO DR ERNANDEZ AFTER HE ROUNDED ON PATIENT THIS MORNING, THIS NURSE TOLD DR ERNANDEZ THAT PT REFUSED RISPERDAL AND GEODON, DR ERNANDEZ STATES HE IS OK WITH DISCONTINUING THEM IF GAULT IS OKAY WITH IT.HE ALSO STATES PT CAN SEE HIM 2-3 WEEKS AFTER DISCHARGE IF SHE WANTS.
[2019-08-04] MEDS ORDERED: TROUGH ORDER-PHARMACY XX NR (07:00)
[2019-08-04 07:11] LABS: BASOPHILS % (AUTO) 0 % (0-10); EOSINOPHILS % (AUTO) 0 % (0-10); HEMATOCRIT 34 % (35-52); HEMOGLOBIN 10.7 G/DL (11.5-16.0); LYMPHOCYTES # (AUTO) 0.4 X 10^3 (1.0-4.0); LYMPHOCYTES % (AUTO) 4 % (12-44); MEAN CORPUSCULAR HEMOGLOBIN 31 PG (25-34); MEAN CORPUSCULAR HGB CONC 32 G/DL (32-36); MEAN CORPUSCULAR VOLUME 97 FL (80-99); MEAN PLATELET VOLUME 9.8 FL (7.4-10.4); MONOCYTES # (AUTO) 0.4 X 10^3 (0.0-1.0); MONOCYTES % (AUTO) 5 % (0-12); NEUTROPHILS # (AUTO) 7.4 X 10^3 (1.8-7.8); NEUTROPHILS % (AUTO) 90 % (42-75); PLATELET COUNT 210 10^3/uL (130-400); RED CELL DISTRIBUTION WIDTH 16.3 % (10.0-14.5); WHITE BLOOD COUNT 8.2 10^3/uL (4.3-11.0)
[2019-08-04 07:33] LABS: BUN/CREATININE RATIO 14; CALCIUM 8.9 MG/DL (8.5-10.1); CARBON DIOXIDE 29 MMOL/L (21-32); CHLORIDE 104 MMOL/L (98-107); CREATININE SERUM 0.72 MG/DL (0.60-1.30); GFR ESTIMATED > 60; GLUCOSE 164 MG/DL (70-105); MAGNESIUM 1.3 MG/DL (1.6-2.4); PHOSPHORUS 2.8 MG/DL (2.3-4.7); POTASSIUM 3.5 MMOL/L (3.6-5.0); SODIUM 143 MMOL/L (135-145)
--- NOTE | 2019-08-04 07:35 | Diagnostic Imaging Report ---
Indication: Exacerbation COPD Portable chest 3:37 AM Left-sided subclavian Port-A-Cath tip projects over the SVC. There are emphysematous changes in the lungs with large apical bullae. There are no infiltrates, effusions or pneumothoraces. IMPRESSION: Bullous emphysematous changes. No appreciable interval change compared to the previous day. Dictated by: Dictated on workstation # [id number]
[2019-08-04 07:48] VITALS: BP 135/61
--- NOTE | 2019-08-04 08:35 | Cardiology Progress Note ---
Subjective Date Seen by Provider: Aug 04, 2019 Time Seen by Provider: 08:33 Subjective/Events-last exam Patient is sitting in a chair, feeling better. No new complaint Review of Systems General: No Chills, No Night Sweats, No Fatigue, No Malaise, No Appetite, No Other HEENT: No Head Aches, No Visual Changes, No Eye Pain, No Ear Pain, No Dysphasia, No Sinus Congestion, No Post Nasal Drip, No Sore Throat, No Other Pulmonary: Dyspnea; No Cough, No Pleuritic Chest Pain, No Other Cardiovascular: No: Chest Pain, Palpitations, Orthopnea, Paroxysmal Noc. Dyspnea, Edema, Lt Headedness, Other Objective-Cardiology Exam Last Set of Vital Signs Vital Signs 07/31/19 08/04/19 09:00 07:48 Temp 37.1 Pulse 102 Resp 20 B/P (MAP) 135/61 (85) Pulse Ox 97 O2 Delivery Nasal Cannula O2 Flow Rate 3.00 FiO2 28 Capillary Refill : Less Than 3 Seconds I&O Intake and Output 08/04/19 00:00 Intake Total 2075 ml Output Total 3750 ml Balance -1675 ml Intake Oral 1560 ml IV Total 515 ml Output Urine Total 3750 ml General: Alert, Cooperative, No Acute Distress HEENT: Mucous Memb Moist/[place] Neck: Supple, No JVD, No Thyromegaly Lungs: Clear to Auscultation, Normal Air Movement Heart: Regular Rate, Normal S1, Normal S2, No Murmurs Abdomen: Normal Bowel Sounds, Soft, No Tenderness, No Masses Extremities: No Edema, No Tenderness/Swelling Skin: No Rashes, No Breakdown, No Significant Lesion Neuro: Normal Gait, Normal Speech, Strength at 5/5 X4 Ext, Normal Tone, Sensation Intact Psych/Mental Status: Mental Status NL, Mood NL Results Lab Laboratory Tests 08/04/19 07:00 A/P-Cardiology Admission Diagnosis Afib with RVR AE COPD Hx lung CA Acute renal failure Assessment/Plan Paroxysmal atrial fibrillation with rapid response returned to sinus tach ycardia, still slightly tachycardic, continue to monitor COPD with episode of exacerbation, significant anxiety, using oxygen, managed by primary care team Acute psychosis, change in mental status, improved. Managed by medical team. Back pain, T6 fracture, planning for kyphoplasty with Dr. Wallace, requesting cardiac clearance. Metabolic acidosis with acute respiratory failure, better at this time. AE COPD, Dr. De La Cruz following. Continue to monitor. Hx of Lung CA- followed by Dr. Birmingham. Acute renal failure- continue IVFs, continue to monitor. Ex tobaccoism Obesity next Preoperative cardiac evaluation for possible kyphoplasty, patient is considered at intermediate risk for perioperative cardiovascular complication, decision regarding the surgery, risks versus benefit is deferred to the surgeon, her underlying shortness of breath and COPD Will pose an increased risk of pulmonary complication perioperatively Clinical Quality Measures DVT/VTE Risk/Contraindication: Risk Factor Score Per Nursin RFS Level Per Nursing on Admit: 4+=Very High CHAGO EISENBERG MD Aug 04, 2019 08:35
[2019-08-04] MEDS: LIDOCAINE 4% (SALONPAS) PATCH TOP SCH (09:24)
[2019-08-04] MEDS ORDERED: FUROSEMIDE 40 MG/4 ML INJ (LASIX) IVP NR (10:45)
[2019-08-04 10:54] VITALS: BP 122/57
--- NOTE | 2019-08-04 11:01 | Physical Therapy Daily Note ---
PT Daily Note-Current Subjective Patient agrees to PT and states she wants to walk to the restroom. Pain Numeric Pain Scale: 5-Moderate Pain Location: Medial Location Body Site: Back Pain Description: Chronic Mental Status Patient Orientation: Normal For Age Attachments: Oxygen, Pruett Catheter Transfers SCALE: Activities may be completed with or without assistive devices. 2-Hvqpaviczx-aogpvsm completes the activity by him/herself with no assistance from a helper. 5-Set-up or Clean-up Assistance-helper sets up or cleans up; patient completes activity. Mccammon assists only prior to or following the activity. 4-Supervision or Touching Assistance-helper provides verbal cues and/or touching/steadying and/or contact guard assistance as patient completes activity. Assistance may be provided throughout the activity or intermittently. 3-Partial/Moderate Assistance-helper does LESS THAN HALF the effort. Mccammon lifts, holds or supports trunk or limbs, but provides less than half the effort. 2-Substantial/Maximal Assistance-helper does MORE THAN HALF the effort. Mccammon lifts or holds trunk or limbs and provides more than half the effort. 7-Lxsgrbkyf-puuuoa does ALL the effort. Patient does none of the effort to complete the activity. Or, the assistance of 2 or more helpers is required for the patient to complete the activity. If activity was not attempted, code reason: 7-Patient Refused. 9-Not Applicable-not attempted and the patient did not perform the activity before the current illness, exacerbation or injury. 10-Not Attempted due to Environmental Limitations-(lack of equipment, weather restraints, etc.). 88-Not Attempted due to Medical Conditions or Safety Concerns. Sit to Stand (QC): 3 Chair/Lxd-ej-Wjnyd Xfer(QC): 4 Bed to/from Chair: 4 Patient is very hesitant to perform sit to stand to FWW and to ambulate Gait Training Does the Patient Walk?: Yes Distance: 15' Walk 10 feet (QC): 3 Walk 50 ft with 2 Turns(QC): 88 Walk 150 ft (QC): 88 Gait Assistive Device: FWW flexed trunk with leaning on forearms to ambulate with FWW Assessment Patient in restroom with TERMINAL MANAGER present. Patient is able to ambulate, however, appears to self limit. PT to increase activity as tolerated by patient. Patient to have kyphoplasty tomorrow per her report. PT Line Crew Supervisor Goals Line Crew Supervisor Goals PT Skilled Nursing Goals Time Frame: Aug 05, 2019 Sit to Lying (QC): 4 Lying-Sitting on Side/Bed(QC): 4 Sit to Stand (QC): 4 Roll Left to Right (QC): 4 Chair/Bsc-vq-Oenzb Xfer(QC): 4 Walk 50ft with 2 Turns (QC): 4 PT Plan Treatment/Plan Treatment Plan: Continue Plan of Care Treatment Plan: Bed Mobility, Education, Functional Activity Sravani, Functional Strength, Gait, Safety, Therapeutic Exercise, Transfers Treatment Duration: Aug 12, 2019 Frequency: 6 times per week Estimated Hrs Per Day: .5 hour per day Patient and/or Family Agrees t: Yes Time/GCodes Time In: 1005 Time Out: 1021 Total Billed Treatment Time: 16 Total Billed Treatment 1 visit GT 16 min JAMES REHMAN PT Aug 04, 2019 11:01
[2019-08-04] MEDS: SENNA W/DOCUSATE (SENOKOT S) TABLET PO SCH ×2 (11:59→20:32)
[2019-08-04] MEDS: POLYETHYLENE GLYCOL 17 GM (MIRALAX) PACK PO SCH ×3 (11:59→20:31)
[2019-08-04 12:00] VITALS: BP 122/57
--- NOTE | 2019-08-04 16:03 | NUR ---
Son inquiring about continued care options as recognizes pt not able to return home until she receives rehab services to regain ability to manage her own care. Plan to further discuss with pt and son tomorrow.
--- NOTE | 2019-08-04 16:45 | NUR ---
ICU CALLED WITH HR SVT 206. DR. GREGG NOTIFIED.
--- NOTE | 2019-08-04 16:51 | Progress Note ---
Subjective Subjective/Events-last exam Patient more alert today. States that she needs something for constipation and her swelling today. Tolerating PO diet and ambulation. Review of Systems Pulmonary: No Dyspnea, No Cough Cardiovascular: No: Chest Pain, Palpitations Gastrointestinal: Abdominal Pain, Constipation Genitourinary: No Dysuria, No Frequency, No Incontinence Objective Exam Last Set of Vital Signs Vital Signs Date Time Temp Pulse Resp B/P (MAP) Pulse Ox O2 Delivery O2 Flow Rate FiO2 08/04/19 15:37 93 Nasal Cannula 3.00 08/04/19 13:00 117 08/04/19 12:00 37.1 18 122/57 (78) 08/04/19 10:54 32 Capillary Refill : Greater Than 3 SecondsLess Than 3 Seconds I&O Intake and Output 08/04/19 00:00 Intake Total 2075 ml Output Total 3750 ml Balance -1675 ml Intake Oral 1560 ml IV Total 515 ml Output Urine Total 3750 ml General: Alert, Cooperative Lungs: Clear to Auscultation, Normal Air Movement Heart: Regular Rate, No Murmurs Abdomen: Normal Bowel Sounds, Soft, Other (LLQ ttp, no rebound or gaurding) Extremities: Other (2+ pitting edema bilaterally) Skin: No Rashes, No Breakdown Neuro: Strength at 5/5 X4 Ext, Cranial Nerves 3-12 NL Psych/Mental Status: Mental Status NL, Mood NL Results/Procedures Lab Laboratory Tests 08/03/19 20:49: Glucometer 245H 08/04/19 06:07: Glucometer 134H 08/04/19 07:00: White Blood Count 8.2, Red Blood Count 3.48L, Hemoglobin 10.7#L, Hematocrit 34L, Mean Corpuscular Volume 97, Mean Corpuscular Hemoglobin 31, Mean Corpuscular He moglobin Concent 32, Red Cell Distribution Width 16.3H, Platelet Count 210, Mean Platelet Volume 9.8, Neutrophils (%) (Auto) 90H, Lymphocytes (%) (Auto) 4L, Monocytes (%) (Auto) 5, Eosinophils (%) (Auto) 0, Basophils (%) (Auto) 0, Neutrophils # (Auto) 7.4, Lymphocytes # (Auto) 0.4L, Monocytes # (Auto) 0.4, Eosinophils # (Auto) 0.0, Basophils # (Auto) 0.0, Sodium Level 143, Potassium Level 3.5L, Chloride Level 104, Carbon Dioxide Level 29, Anion Gap 10, Blood Urea Nitrogen 10, Creatinine 0.72, Estimat Glomerular Filtration Rate > 60, BUN/Creatinine Ratio 14, Glucose Level 164H, Calcium Level 8.9, Phosphorus Level 2.8, Magnesium Level 1.3L 08/04/19 11:06: Glucometer 308H Microbiology 07/26/19 Blood Culture - Final, Complete No growth 07/27/19 MRSA Screen - Final, Complete MRSA not isolated 07/26/19 Urine Culture - Final, Complete 3 or more isolates Assessment/Plan Assessment/Plan (1) Altered mental status Status: Acute Assessment & Plan: - Acute psychosis, Dr De La Cruz has patient on geodon 08/02: improved slightly but still having periods of extreme agitation 08/03: improving, will decrease Geodon and Risperidol and continue to monitor 08/04: seems to be at baseline, patient refusing Geodon and risperidol Qualifiers: Qualified Codes: R41.0 - Disorientation, unspecified (2) Compression fracture of T6 vertebra Status: Acute Assessment & Plan: - Ortho was consulted, states that he can do the surgery but needs clearance from Dorothy/Christian 08/03: Waiting on cardiac clearance, Dr De La Cruz has cleared patient for surgery 08/04: Plan for surgery in the AM (3) Lung cancer Status: Chronic Assessment & Plan: - Follows with Dr Birmingham, CT head neg for Mets to brain Qualifiers: (4) Uncontrolled hypertension Status: Acute (5) COPD (chronic obstructive pulmonary disease) Status: Chronic (6) Constipation Status: Acute Assessment & Plan: 08/04: Started on Miralax TID and Senna-S BID (7) Leg edema Status: Acute Assessment & Plan: 08/04: Lasix 40 IV x 1 Clinical Quality Measures DVT/VTE Risk/Contraindication: Risk Factor Score Per Nursin RFS Level Per Nursing on Admit: 4+=Very High TRACY GREGG MD Aug 04, 2019 16:51
[2019-08-04 16:54] VITALS: BP 115/64
--- NOTE | 2019-08-04 16:55 | NUR ---
ICU CALLED WITH HR [address] EISENBERG NOTIFIED AND ORDER FOR EXTRA DOSE METOPROLOL IV. GIVEN ORDERED.
[2019-08-04] MEDS ORDERED: meTOprolol 5 MG/5 ML (LOPRESSOR) VIAL IV ONE (17:00)
[2019-08-04 20:08] VITALS: BP 126/68
[2019-08-04] MEDS: PATCH REMOVAL TP SCH (20:33)
--- NOTE | 2019-08-04 23:49 | NUR ---
PATIENT REFUSED ALL HS MEDICATIONS STATING "I'M ONLY TAKING MY METOPROLOL". PATIENT EDUCATED ON TAKING MEDICATIONS PRESCRIBED BY PHYSICIAN, CONTINUED TO REFUSE.
[2019-08-05] VITALS (13 sets, daily range): BP systolic 97–129; BP diastolic 53–76
[2019-08-05 04:36] LABS: BASOPHILS % (AUTO) 0 % (0-10); EOSINOPHILS % (AUTO) 0 % (0-10); HEMATOCRIT 28 % (35-52); HEMOGLOBIN 8.9 G/DL (11.5-16.0); LYMPHOCYTES # (AUTO) 0.4 X 10^3 (1.0-4.0); LYMPHOCYTES % (AUTO) 6 % (12-44); MEAN CORPUSCULAR HEMOGLOBIN 31 PG (25-34); MEAN CORPUSCULAR HGB CONC 32 G/DL (32-36); MEAN CORPUSCULAR VOLUME 96 FL (80-99); MEAN PLATELET VOLUME 9.9 FL (7.4-10.4); MONOCYTES # (AUTO) 0.5 X 10^3 (0.0-1.0); MONOCYTES % (AUTO) 7 % (0-12); NEUTROPHILS # (AUTO) 6.2 X 10^3 (1.8-7.8); NEUTROPHILS % (AUTO) 87 % (42-75); PLATELET COUNT 192 10^3/uL (130-400); RED CELL DISTRIBUTION WIDTH 16.4 % (10.0-14.5); WHITE BLOOD COUNT 7.1 10^3/uL (4.3-11.0)
[2019-08-05 04:56] LABS: BUN/CREATININE RATIO 16; CALCIUM 8.3 MG/DL (8.5-10.1); CARBON DIOXIDE 30 MMOL/L (21-32); CHLORIDE 104 MMOL/L (98-107); CREATININE SERUM 0.61 MG/DL (0.60-1.30); GFR ESTIMATED > 60; GLUCOSE 151 MG/DL (70-105); MAGNESIUM 1.3 MG/DL (1.6-2.4); PHOSPHORUS 3.2 MG/DL (2.3-4.7); POTASSIUM 2.9 MMOL/L (3.6-5.0); SODIUM 144 MMOL/L (135-145)
[2019-08-05] MEDS: meTOprolol 5 MG/5 ML (LOPRESSOR) VIAL IV SCH ×3 (05:46→18:43)
[2019-08-05] MEDS: inSUlin ASPART (NovoLOG) 1 UNIT/0.01 ML (CHARGE PER UNIT) SC SCH ×4 (05:48→21:49)
[2019-08-05] MEDS: RT-ALBUTEROL/IPRATROPIUM 3 ML (DUONEB) VIAL INH SCH ×4 (07:04→19:38)
--- NOTE | 2019-08-05 07:36 | Cardiology Progress Note ---
Subjective Date Seen by Provider: Aug 05, 2019 Time Seen by Provider: 07:34 Subjective/Events-last exam Patient is sitting in bed, feeling well. Had an episode of paroxysmal atrial tachycardia yesterday, heart rate is better at this time Review of Systems General: No Chills, No Night Sweats, No Fatigue, No Malaise, No Appetite, No Other HEENT: No Head Aches, No Visual Changes, No Eye Pain, No Ear Pain, No Dysphasia, No Sinus Congestion, No Post Nasal Drip, No Sore Throat, No Other Pulmonary: Dyspnea; No Cough, No Pleuritic Chest Pain, No Other Cardiovascular: No: Chest Pain, Palpitations, Orthopnea, Paroxysmal Noc. Dyspnea, Edema, Lt Headedness, Other Objective-Cardiology Exam Last Set of Vital Signs Vital Signs 08/04/19 08/05/19 08/05/19 08/05/19 10:54 04:20 07:00 07:04 Temp 36.6 Pulse 109 Resp 22 B/P (MAP) 113/53 (73) Pulse Ox 93 O2 Delivery Nasal Cannula O2 Flow Rate 3.00 FiO2 32 Capillary Refill : Less Than 3 SecondsLess Than 3 Seconds I&O Intake and Output 08/05/19 00:00 Intake Total 1000 ml Output Total 1675 ml Balance -675 ml Intake Oral 1000 ml Output Urine Total 1675 ml # Bowel Movements 2 General: Alert, Cooperative HEENT: Mucous Memb Moist/[place] Neck: Supple, No JVD, No Thyromegaly Lungs: Clear to Auscultation, Normal Air Movement Heart: Normal S1, Normal S2, No Murmurs, Other (Borderline tachycardic) Abdomen: Normal Bowel Sounds, Soft, Other (LLQ ttp, no rebound or gaurding) Extremities: Other (2+ pitting edema bilaterally) Skin: No Rashes, No Breakdown Neuro: Strength at 5/5 X4 Ext, Cranial Nerves 3-12 NL Psych/Mental Status: Mental Status NL, Mood NL Results Lab Laboratory Tests 08/05/19 04:00 A/P-Cardiology Admission Diagnosis Afib with RVR AE COPD Hx lung CA Acute renal failure Assessment/Plan Paroxysmal atrial fibrillation with rapid response returned to sinus tachyc ardia, still slightly tachycardic, continue on IV Lopressor every 6 hours and I started her on Cardizem 30 mg every 6 hours will monitor tolerance and response COPD with episode of exacerbation, significant anxiety, using oxygen, managed by primary care team Acute psychosis, change in mental status, improved. Managed by medical team. Back pain, T6 fracture, planning for kyphoplasty with Dr. Wallace, requesting cardiac clearance. Metabolic acidosis with acute respiratory failure, better at this time. AE COPD, Dr. De La Cruz following. Continue to monitor. Hx of Lung CA- followed by Dr. Birmingham. Acute renal failure- continue IVFs, continue to monitor. Ex tobaccoism Obesity Preoperative cardiac evaluation for possible kyphoplasty, patient is considered at intermediate risk for perioperative cardiovascular complication, decision regarding the surgery, risks versus benefit is deferred to the surgeon, her underlying shortness of breath and COPD Will pose an increased risk of pulmonary complication perioperatively Clinical Quality Measures DVT/VTE Risk/Contraindication: Risk Factor Score Per Nursin RFS Level Per Nursing on Admit: 4+=Very High CHAGO EISENBERG MD Aug 05, 2019 07:36
[2019-08-05] MEDS: ZIPRASIDONE 20 MG INJ (GEODON) VIAL IM SCH ×2 (08:07→20:32)
[2019-08-05] MEDS: SENNA W/DOCUSATE (SENOKOT S) TABLET PO SCH ×2 (08:08→20:33)
[2019-08-05] MEDS: POLYETHYLENE GLYCOL 17 GM (MIRALAX) PACK PO SCH ×3 (08:08→20:32)
[2019-08-05] MEDS: LIDOCAINE 4% (SALONPAS) PATCH TOP SCH (08:08)
[2019-08-05] MEDS: risperiDONE 1 MG (RisperDAL) TAB PO SCH ×2 (08:08→20:33)
[2019-08-05] MEDS ORDERED: POTASSIUM CL 10MEQ/50ML IVPB 200 ML IV ONE (08:18)
[2019-08-05] MEDS: DILTIAZEM 30 MG (CARDIZEM) TAB PO SCH ×3 (08:26→18:44)
[2019-08-05] MEDS: POTASSIUM CL 10MEQ/50ML IVPB 50 ML IV SCH ×4 (08:27→11:18)
--- NOTE | 2019-08-05 08:32 | Diagnostic Imaging Report ---
INDICATION: History of lung cancer and COPD exacerbation and respiratory failure Frontal chest obtained at 0318 a.m. and is compared to the previous day Heart is borderline enlarged. There are COPD changes with biapical emphysematous change. There are stable bibasilar opacities, right greater than left, which may represent infiltrate and/or atelectasis. There is no pneumothorax or pleural fluid. Port-A-Cath is stable. IMPRESSION: Unchanged COPD change. Unchanged bibasilar opacities, right greater than left, which may represent infiltrate and/or atelectasis. No pneumothorax or pleural fluid is seen. Dictated by: Dictated on workstation # [id number]
[2019-08-05] MEDS ORDERED: FLEET ENEMA ADULT 1 EA BTL ONE (08:48)
[2019-08-05] MEDS ORDERED: FLEET ENEMA ADULT 1 EA BTL PR ONE (09:00)
--- NOTE | 2019-08-05 10:35 | Physical Therapy Progress Note ---
Therapy Progress Note Patient in recliner, states she doesn't want to do therapy at this time and she is getting a kyphoplasty early this afternoon, nurse aide confirms this. Patient will be discharged for now due to surgery and we will await new orders. ELSIE GONZALEZ PT Aug 05, 2019 10:35
[2019-08-05] MEDS ORDERED: MAGNESIUM 1 GM/100 ML IVPB 200 ML IV ONE (11:15)
[2019-08-05] MEDS: MAGNESIUM 1 GM/100 ML IVPB 100 ML IV SCH ×2 (11:18→12:41)
--- NOTE | 2019-08-05 11:40 | NUR ---
[employer] responded to referral at request from pt. Pt has no zoroastrianism preference but attended [employer] a long time ago. She now is going to have surgery and requested prayer. [employer] prayer for pt and provided opportunity to talk about health and family history.
[2019-08-05] MEDS ORDERED: ROCURONIUM 10 MG/ML 5 ML SYRINGE IV ONE (12:50)
[2019-08-05] MEDS ORDERED: MIDAZOLAM 2 MG/2 ML (VERSED) VIAL ONE (12:50)
[2019-08-05] MEDS ORDERED: fentaNYL INJECTION 100 MCG/2 ML AMP ONE (12:50)
[2019-08-05] MEDS ORDERED: proPOfol 200 MG/20 ML (DIPRIVAN) VIAL IV ONE ×2 (12:50→14:20)
[2019-08-05] MEDS ORDERED: DEXAMETHASONE 10 MG/ML (DECADRON) 1 ML VIAL ONE (12:59)
[2019-08-05] MEDS ORDERED: ONDANSETRON 4 MG/2 ML (SDV) Z0FRAN ONE (12:59)
[2019-08-05] MEDS ORDERED: SEVOFLURANE (ULTANE) 15 ML INHAL SOLN ONE ×4 (12:59→14:47)
--- NOTE | 2019-08-05 13:15 | NUR ---
TO OR PER BED.
[2019-08-05] MEDS ORDERED: NS IV 500 ML 500 ML IV PRN (13:27)
[2019-08-05] MEDS ORDERED: NS IV 1000 ML 1,000 ML IV PRN (13:29)
--- NOTE | 2019-08-05 13:43 | Progress Note-Pre Operative ---
Pre-Operative Progress Note H&P Reviewed The H&P was reviewed, patient examined and no changes noted. Date Seen by Provider: Aug 05, 2019 Time Seen by Provider: 13:43 Date H&P Reviewed: Aug 05, 2019 Time H&P Reviewed: 13:43 Pre-Operative Diagnosis: T6 osteoporotic compression fracture MOON JEAN MD Aug 05, 2019 13:43
[2019-08-05] MEDS ORDERED: VANCOMYCIN 1000 MG/VIAL ONE (13:44)
[2019-08-05] MEDS ORDERED: NS IV 500 ML 500 ML ONE (13:44)
[2019-08-05] MEDS ORDERED: VANCOMYCIN INJECTION 1,000 MG in NS (IVPB) 250 ML IV SCH (13:45)
[2019-08-05] MEDS ORDERED: PHENYLEPHRINE 100 MCG/ML 10 ML (ANESTHESIA) SYR ONE (14:19)
[2019-08-05] MEDS ORDERED: LIDOCAINE PF 2% 5 ML (XYLOCAINE) VIAL ONE (14:20)
--- NOTE | 2019-08-05 14:29 | Progress Note-Post Operative ---
Post-Operative Progess Note Surgeon (s)/Certified Medication Technician (s) Surgeon MOON JEAN MD Certified Medication Technician: MARGIE Braden Pre-Operative Diagnosis T6 osteoporotic compression fracture Post-Operative Diagnosis Same Procedure & Operative Findings Date of Procedure 08/05/19 Procedure Performed/Findings T6 kyphoplasty and biopsy Anesthesia Type GETA Estimated Blood Loss Estimated blood loss (mL): min Specimens/Packing Specimens Removed T6 biopsy MOON JEAN MD Aug 05, 2019 14:29
[2019-08-05] MEDS ORDERED: ONDANSETRON 4 MG/2 ML (SDV) Z0FRAN IVP PRN (14:45)
[2019-08-05] MEDS ORDERED: HYDROmorphone 2 MG/ML VIAL (DILAUDID) IV ONE (14:45)
[2019-08-05] MEDS ORDERED: SUCCINYLCHOLINE INJ 100 MG/5 ML SYR ONE (14:48)
--- NOTE | 2019-08-05 14:58 | Diagnostic Imaging Report ---
INDICATION: Fluoroscopy for kyphoplasty. FINDINGS: Fluoroscopy was provided in the OR during thoracic kyphoplasty. 1 minute and 14 seconds of fluoroscopic time was utilized. IMPRESSION: Fluoroscopy during thoracic spine kyphoplasty. Dictated by: Dictated on workstation # [id number]
--- NOTE | 2019-08-05 15:25 | NUR ---
Met [facility] pt's son who is concerned about continued care as states currently pt not able to manage home alone without period of rehab services. Recommend Physical therapy be resumed and Acute And Swing Bed evals to determine best care plan for pt. Another possibility would be Community snf placement.Prior to hospitalization,pt lived alone in [place]. Will follow and assist.
--- NOTE | 2019-08-05 15:30 | NUR ---
REC'D PER BED FROM PAR. SEE ASSESSMENT. SMALL DRESSING WITH OPSITE D/I ON BACK. ALERT AND ORIENTED. SON AT BEDSIDE.
--- NOTE | 2019-08-05 16:40 | Progress Note ---
Subjective Subjective/Events-last exam Patient states that she is ready for the surgery today. She was sitting in the chair this AM and her pain in her back was alot worse so she got into bed. States that she has had 3 BM this AM and thinks that her bowels are "breaking loose" Review of Systems Pulmonary: Dyspnea, Cough Cardiovascular: No: Chest Pain, Palpitations Gastrointestinal: Nausea, Abdominal Pain, Constipation Musculoskeletal: back pain Objective Exam Last Set of Vital Signs Vital Signs Date Time Temp Pulse Resp B/P (MAP) Pulse Ox O2 Delivery O2 Flow Rate FiO2 08/05/19 15:40 36.4 92 20 128/60 (82) 91 Nasal Cannula 3.50 08/04/19 10:54 32 Capillary Refill : Less Than 3 SecondsLess Than 3 Seconds I&O Intake and Output 08/05/19 00:00 Intake Total 1000 ml Output Total 1675 ml Balance -675 ml Intake Oral 1000 ml Output Urine Total 1675 ml # Bowel Movements 2 General: Alert, Oriented X3, Cooperative, No Acute Distress Lungs: Clear to Auscultation, Normal Air Movement Heart: Regular Rate, No Murmurs Abdomen: Normal Bowel Sounds, Soft, Other (mild ttp LLQ) Extremities: Other (2+ pitting edema bilaterally) Results/Procedures Lab Laboratory Tests 08/04/19 16:41: Glucometer 127H 08/04/19 20:42: Glucometer 174H 08/05/19 04:00: White Blood Count 7.1, Red Blood Count 2.90L, Hemoglobin 8.9L, Hematocrit 28L, Mean Corpuscular Volume 96, Mean Corpuscular Hemoglobin 31, Mean Corpuscular Hemoglobin Concent 32, Red Cell Distribution Width 16.4H, Platelet Count 192, Mean Platelet Volume 9.9, Neutrophils (%) (Auto) 87H, Lymphocytes (%) (Auto) 6L, Monocytes (%) (Auto) 7, Eosinophils (%) (Auto) 0, Basophils (%) (Auto) 0, Neutrophils # (Auto) 6.2, Lymphocytes # (Auto) 0.4L, Monocytes # (Auto) 0.5, Eosinophils # (Auto) 0.0, Basophils # (Auto) 0.0, Sodium Level 144, Potassium Level 2.9L, Chloride Level 104, Carbon Dioxide Level 30, Anion Gap 10, Blood Urea Nitrogen 10, Creatinine 0.61, Estimat Glomerular Filtration Rate > 60, BUN/Creatinine Ratio 16, Glucose Level 151H, Calcium Level 8.3L, Phosphorus Level 3.2, Magnesium Level 1.3L 08/05/19 11:28: Glucometer 197H 08/05/19 16:17: Glucometer 186H Microbiology 07/26/19 Blood Culture - Final, Complete No growth 07/27/19 MRSA Screen - Final, Complete MRSA not isolated 07/26/19 Urine Culture - Final, Complete 3 or more isolates Assessment/Plan Assessment/Plan (1) Altered mental status Status: Resolved Assessment & Plan: - Acute psychosis, Dr De La Cruz has patient on geodon 08/02: improved slightly but still having periods of extreme agitation 08/03: improving, will decrease Geodon and Risperidol and continue to monitor 08/04: seems to be at baseline, patient refusing Geodon and risperidol 08/05: Baseline Qualifiers: Qualified Codes: R41.0 - Disorientation, unspecified (2) Compression fracture of T6 vertebra Status: Acute Assessment & Plan: - Ortho was consulted, states that he can do the surgery but needs clearance from Dorothy/Christian 08/03: Waiting on cardiac clearance, Dr De La Cruz has cleared patient for surgery 08/04: Plan for surgery in the AM 08/05: To surgery today, then plan for IRF (3) Lung cancer Status: Chronic Assessment & Plan: - Follows with Dr Birmingham, CT head neg for Mets to brain Qualifiers: (4) Uncontrolled hypertension Status: Acute (5) COPD (chronic obstructive pulmonary disease) Status: Chronic (6) Constipation Status: Acute Assessment & Plan: 08/04: Started on Miralax TID and Senna-S BID (7) Leg edema Status: Acute Assessment & Plan: 08/04: Lasix 40 IV x 1 Clinical Quality Measures DVT/VTE Risk/Contraindication: Risk Factor Score Per Nursin RFS Level Per Nursing on Admit: 4+=Very High TRACY GREGG MD Aug 05, 2019 16:40
[2019-08-05] MEDS: PATCH REMOVAL TP SCH (20:33)
[2019-08-05] MEDS: RT-ALBUTEROL/IPRATROPIUM 3 ML (DUONEB) VIAL INH PRN (21:47)
--- NOTE | 2019-08-05 23:29 | OPERATIVE REPORT ---
DATE OF SERVICE: 08/05/2019 PREOPERATIVE DIAGNOSIS: Thoracic 6 osteoporotic pathologic compression fracture, pathology pending. POSTOPERATIVE DIAGNOSIS: Thoracic 6 osteoporotic pathologic compression fracture, pathology pending. PROCEDURE PERFORMED: Thoracic 6 kyphoplasty with biopsy and fluoroscopy. DATE AND TIME OF SURGERY: Please see anesthesia record. SURGEON: Angel Wallace MD DYNAMICS AX CONSULTANT: MARGIE Braden ROLE OF CONCRETE MIXER OPERATOR: Bilateral balloon insufflation, methyl methacrylate insertion. ANESTHESIA: General endotracheal. ESTIMATED BLOOD LOSS: Minimal. INTRAVENOUS FLUIDS: Please see anesthesia record. ANTIBIOTICS: Ancef. COMPLICATIONS: None. SPECIMENS: Thoracic 6 biopsy. INDICATIONS FOR PROCEDURE: The patient is a 69-year-old female with severe back pain, acute T6 compression deformity with large cleft pain and inability to function, desires operative treatment. DESCRIPTION OF PROCEDURE: The patient preoperatively brought back to the operative suite. After adequate induction of general anesthetic, turned prone on Greg table, careful padding to torso, extremities, sterilely prepped and draped posterior thoracic spine bilaterally. Biplanar fluoroscopy was brought in and bilateral stab incision was made overlying the pedicles of T6. Working cannulas were placed. Vertebral body was biopsied, drilled large cleft with an anterior gap was present in the vertebral body. Balloon insufflation with very low pressures were required with a good fill of the vertebra and then methyl methacrylate was inserted via the cement delivery system with good fill and interdigitation achieved. Cement was allowed to harden, cannulas removed. Wounds were closed. The patient transferred to the recovery room in stable condition having tolerated the procedure well. Job ID: [id number] DocumentID: [id number] Dictated Date: 08/05/2019 14:33:58 Channel Lip Wetter Date: 08/05/2019 23:29:18 Dictated By: ANGEL WALLACE MD [facility]
[2019-08-06] VITALS (7 sets, daily range): BP systolic 90–136; BP diastolic 47–74
[2019-08-06] MEDS: meTOprolol 5 MG/5 ML (LOPRESSOR) VIAL IV SCH ×4 (00:40→17:59)
[2019-08-06] MEDS: DILTIAZEM 30 MG (CARDIZEM) TAB PO SCH ×4 (00:40→17:59)
[2019-08-06] MEDS: RT-ALBUTEROL/IPRATROPIUM 3 ML (DUONEB) VIAL INH PRN ×2 (01:15→23:09)
[2019-08-06] MEDS: inSUlin ASPART (NovoLOG) 1 UNIT/0.01 ML (CHARGE PER UNIT) SC SCH ×4 (06:04→21:06)
[2019-08-06 06:06] LABS: BASOPHILS % (AUTO) 0 % (0-10); EOSINOPHILS % (AUTO) 0 % (0-10); HEMATOCRIT 29 % (35-52); HEMOGLOBIN 8.9 G/DL (11.5-16.0); LYMPHOCYTES # (AUTO) 0.3 X 10^3 (1.0-4.0); LYMPHOCYTES % (AUTO) 3 % (12-44); MEAN CORPUSCULAR HEMOGLOBIN 30 PG (25-34); MEAN CORPUSCULAR HGB CONC 31 G/DL (32-36); MEAN CORPUSCULAR VOLUME 98 FL (80-99); MEAN PLATELET VOLUME 9.6 FL (7.4-10.4); MONOCYTES # (AUTO) 0.5 X 10^3 (0.0-1.0); MONOCYTES % (AUTO) 6 % (0-12); NEUTROPHILS # (AUTO) 8.4 X 10^3 (1.8-7.8); NEUTROPHILS % (AUTO) 91 % (42-75); PLATELET COUNT 202 10^3/uL (130-400); RED CELL DISTRIBUTION WIDTH 16.4 % (10.0-14.5); WHITE BLOOD COUNT 9.3 10^3/uL (4.3-11.0)
[2019-08-06 06:24] LABS: BUN/CREATININE RATIO 19; CALCIUM 8.2 MG/DL (8.5-10.1); CARBON DIOXIDE 28 MMOL/L (21-32); CHLORIDE 105 MMOL/L (98-107); CREATININE SERUM 0.67 MG/DL (0.60-1.30); GFR ESTIMATED > 60; GLUCOSE 180 MG/DL (70-105); MAGNESIUM 1.9 MG/DL (1.6-2.4); POTASSIUM 3.6 MMOL/L (3.6-5.0); SODIUM 143 MMOL/L (135-145)
[2019-08-06] MEDS: RT-ALBUTEROL/IPRATROPIUM 3 ML (DUONEB) VIAL INH SCH ×4 (06:55→21:27)
--- NOTE | 2019-08-06 08:12 | Diagnostic Imaging Report ---
EXAMINATION: Chest 1 view HISTORY: Respiratory failure FINDINGS: Comparison is 08/05/2019. Left subclavian port catheter tip terminates in the superior vena cava. The lungs are clear. No edema. No pneumonia. No pleural effusion. No pneumothorax. Heart is normal in size. IMPRESSION: 1. Clear lungs. Dictated by: Dictated on workstation # [id number]
--- NOTE | 2019-08-06 08:16 | Anesthesia-General Post-Op ---
General Patient Condition Mental Status/LOC: Same as Preop Cardiovascular: Satisfactory Nausea/Vomiting: Absent Respiratory: Satisfactory Pain: Controlled Complications: Absent Post Op Complications Complications None Follow Up Care/Instructions Patient Instructions None needed. Anesthesia/Patient Condition Patient Condition Patient is doing well, no complaints, stable vital signs, no apparent adverse anesthesia problems. No complications reported per nursing. JANETH MCKENZIE CRNA Aug 06, 2019 08:16
[2019-08-06] MEDS: POLYETHYLENE GLYCOL 17 GM (MIRALAX) PACK PO SCH ×3 (09:06→22:01)
[2019-08-06] MEDS: SENNA W/DOCUSATE (SENOKOT S) TABLET PO SCH ×2 (09:07→20:58)
[2019-08-06] MEDS: risperiDONE 1 MG (RisperDAL) TAB PO SCH ×2 (09:08→20:58)
[2019-08-06] MEDS: ZIPRASIDONE 20 MG INJ (GEODON) VIAL IM SCH ×2 (09:08→20:58)
[2019-08-06] MEDS: LIDOCAINE 4% (SALONPAS) PATCH TOP SCH (09:08)
--- NOTE | 2019-08-06 13:25 | Progress Note - Hospitalist ---
Subjective HPI/CC On Admission Date Seen by Provider: Aug 06, 2019 Time Seen by Provider: 13:00 CC: SOB HPI: This is a 69yoWF clinic pt of [facility] and Dr. Birmingham with a recent diagnosis of lung cancer former smoker who just quit recently who presented to the ER found to be in exacerbation of COPD who remains a DNR do no intubate but ABG reveals respiratory acidosis improved on biPAP, still belly breathing and now has experienced AF with RVR of heart rate of 170s and cardiology has been consulted and will manage that conservatively. Subjective/Events-last exam Patient says that the kyphoplasty really helped her back. She feels like a new woman. The pain is greatly improved. She is mostly concerned about her legs getting infected again. She has been off her vancomycin. In addition she would like to restart her Lasix. Otherwise she is alert and oriented. Objective Exam Vital Signs Vital Signs Date Time Temp Pulse Resp B/P (MAP) Pulse Ox O2 Delivery O2 Flow Rate FiO2 08/06/19 13:00 115 08/06/19 12:00 37.6 20 90/47 (61) 93 Nasal Cannula 3.00 08/04/19 10:54 32 Capillary Refill : Less Than 3 SecondsLess Than 3 Seconds General Appearance: No Apparent Distress, WD/WN HEENT: Normal ENT Inspection Neck: Non Tender, Supple Respiratory: Lungs Clear, Normal Breath Sounds Cardiovascular: Regular Rate, Rhythm, No Gallop Gastrointestinal: Soft Extremity: Pedal Edema, Swelling Neurologic/Psychiatric: Alert, Oriented x3, No Motor/Sensory Deficits Skin: Other (in the area where she has chronic venous stasis changes she has some slight increased erythema no heat no evidence of active infection.) Results/Procedures Lab Laboratory Tests 08/06/19 05:50 Patient resulted labs reviewed. Assessment/Plan Assessment and Plan Assess & Plan/Chief Complaint T6 compression fracture possibly pathologic status post kyphoplasty doing well Cancer the lung followed by Dr. Birmingham Hypertension improved Chronic venous stasis change will start back on Lasix and started on Keflex Confusion resolved Clinical Quality Measures DVT/VTE Risk/Contraindication: Risk Factor Score Per Nursin RFS Level Per Nursing on Admit: 4+=Very High LAMONT LEWIS MD Aug 06, 2019 13:25
[2019-08-06] MEDS: FUROSEMIDE 40 MG (LASIX) TAB PO SCH (14:06)
--- NOTE | 2019-08-06 16:43 | Progress Note - Cardiology ---
Cardiology SOAP Progress Note Subjective: Notes some malaise and shortness of breath Back pain much improved No cp or palp or syncope Objective: I&O/Vital Signs 08/06/19 08/06/19 08/06/19 08/06/19 04:47 06:59 07:00 08:00 Temp 36.9 37.2 Pulse 101 102 121 Resp 18 20 B/P (MAP) 119/71 (87) 119/74 (89) Pulse Ox 95 92 95 O2 Delivery Nasal Cannula Nasal Cannula Nasal Cannula O2 Flow Rate 3.00 4.00 3.00 08/06/19 08/06/19 08/06/19 08/06/19 09:00 10:42 12:00 13:00 Temp 37.6 Pulse 103 115 Resp 20 B/P (MAP) 90/47 (61) Pulse Ox 95 93 93 O2 Delivery Nasal Cannula Nasal Cannula Nasal Cannula O2 Flow Rate 3.00 4.00 3.00 08/06/19 08/06/19 15:11 15:33 Temp 36.9 Pulse 110 Resp 20 B/P (MAP) 136/63 (87) Pulse Ox 93 95 O2 Delivery Nasal Cannula Nasal Cannula O2 Flow Rate 4.00 3.00 08/06/19 00:00 Intake Total 600 ml Output Total 285 ml Balance 315 ml Weight (Pounds): 200 Weight (Ounces): 0.8 Weight (Calculated Kilograms): [id number] Constitutional: well-developed, well-nourished, other (Somnolent, but awakens and answred questions, appears oriented x 3) Respiratory: chest expansion is symmetric, chest is bilaterally symmetric, rhonchi (scattered), other (fair air entry) Cardiovascular: regular rate-rhythm; No JVD; S1 and S2 Gastrointestional: No tender; soft, round Extremities: no lower extremity edema bilateral Neurologic/Psychiatric: grossly intact Skin: No rash on exposed areas, No ulcerations on exposed areas Results/Procedures: Labs Laboratory Tests 08/05/19 21:12: Glucometer 294H 08/06/19 05:13: Glucometer 190H 08/06/19 05:50: White Blood Count 9.3, Red Blood Count 2.93L, Hemoglobin 8.9L, Hematocrit 29L, Mean Corpuscular Volume 98, Mean Corpuscular Hemoglobin 30, Mean Corpuscular Hemoglobin Concent 31L, Red Cell Distribution Width 16.4H, Platelet Count 202, Mean Platelet Volume 9.6, Neutrophils (%) (Auto) 91H, Lymphocytes (%) (Auto) 3L, Monocytes (%) (Auto) 6, Eosinophils (%) (Auto) 0, Basophils (%) (Auto) 0, Neutrophils # (Auto) 8.4H, Lymphocytes # (Auto) 0.3L, Monocytes # (Auto) 0.5, Eosinophils # (Auto) 0.0, Basophils # (Auto) 0.0, Sodium Level 143, Potassium Level 3.6, Chloride Level 105, Carbon Dioxide Level 28, Anion Gap 10, Blood Urea Nitrogen 13, Creatinine 0.67, Estimat Glomerular Filtration Rate > 60, BUN/Creatinine Ratio 19, Glucose Level 180H, Calcium Level 8.2L, Phosphorus Level 3.0, Magnesium Level 1.9 08/06/19 11:55: Glucometer 165H 08/06/19 15:42: Glucometer 260H Microbiology 07/26/19 Blood Culture - Final, Complete No growth 08/04/19 MRSA Screen - Final, Complete MRSA not isolated 07/26/19 Urine Culture - Final, Complete 3 or more isolates Laboratory Tests 08/05/19 04:00 08/06/19 05:50 A/P: Assessment: Paroxysmal atrial fibrillation with RVR (first documented on EKG of 07-27-19) - currently SR. Anticoagulation is on hold for kyphoplasty Echocardiogram of Jul 27, [address] Arevalo showed LVEF 55-65%. PASP 20-25mmHg. Mild TR. Acute respiratory failure with acute exacerbation of COPD Severe back pain, improved after thoracic kyphoplasty of Aug 05, 2019 Anxiety Hx of Lung CA- followed by Dr. Birmingham. H/O tobaccoism Obesity Plan: * Continue current cardiac regimen * Resume anticoagulation when acceptable to the Surgical Service * Treatment of COPD and resp failure is with Pulmonary and Med Svces CARLOS ENRIQUE CAMPBELL MD FACP FAC CCDS Aug 06, 2019 16:43
[2019-08-06] MEDS: CEPHALEXIN 250 MG (KEFLEX) CAP PO SCH ×2 (17:15→21:06)
[2019-08-06] MEDS: PATCH REMOVAL TP SCH (20:59)
[2019-08-07] VITALS (8 sets, daily range): BP systolic 102–127; BP diastolic 68–85
[2019-08-07] MEDS: DILTIAZEM 30 MG (CARDIZEM) TAB PO SCH ×4 (00:49→18:32)
[2019-08-07] MEDS: meTOprolol 5 MG/5 ML (LOPRESSOR) VIAL IV SCH ×4 (00:49→18:30)
[2019-08-07] MEDS: RT-ALBUTEROL/IPRATROPIUM 3 ML (DUONEB) VIAL INH PRN (03:49)
[2019-08-07 05:37] LABS: BASOPHILS % (AUTO) 0 % (0-10); EOSINOPHILS % (AUTO) 0 % (0-10); HEMATOCRIT 27 % (35-52); HEMOGLOBIN 8.2 G/DL (11.5-16.0); LYMPHOCYTES # (AUTO) 0.4 X 10^3 (1.0-4.0); LYMPHOCYTES % (AUTO) 6 % (12-44); MEAN CORPUSCULAR HEMOGLOBIN 31 PG (25-34); MEAN CORPUSCULAR HGB CONC 31 G/DL (32-36); MEAN CORPUSCULAR VOLUME 99 FL (80-99); MEAN PLATELET VOLUME 9.3 FL (7.4-10.4); MONOCYTES # (AUTO) 0.8 X 10^3 (0.0-1.0); MONOCYTES % (AUTO) 10 % (0-12); NEUTROPHILS % (AUTO) 83 % (42-75); PLATELET COUNT 217 10^3/uL (130-400); WHITE BLOOD COUNT 7.2 10^3/uL (4.3-11.0)
[2019-08-07 05:58] LABS: BUN/CREATININE RATIO 20; CALCIUM 7.9 MG/DL (8.5-10.1); CARBON DIOXIDE 29 MMOL/L (21-32); CHLORIDE 105 MMOL/L (98-107); CREATININE SERUM 0.65 MG/DL (0.60-1.30); GFR ESTIMATED > 60; GLUCOSE 130 MG/DL (70-105); SODIUM 145 MMOL/L (135-145)
[2019-08-07] MEDS: inSUlin ASPART (NovoLOG) 1 UNIT/0.01 ML (CHARGE PER UNIT) SC SCH ×4 (06:03→21:02)
[2019-08-07] MEDS: RT-ALBUTEROL/IPRATROPIUM 3 ML (DUONEB) VIAL INH SCH ×4 (07:05→18:51)
[2019-08-07] MEDS: FUROSEMIDE 40 MG (LASIX) TAB PO SCH (08:06)
[2019-08-07] MEDS: ZIPRASIDONE 20 MG INJ (GEODON) VIAL IM SCH ×2 (08:06→20:15)
[2019-08-07] MEDS: CEPHALEXIN 250 MG (KEFLEX) CAP PO SCH ×4 (08:06→20:23)
[2019-08-07] MEDS: POLYETHYLENE GLYCOL 17 GM (MIRALAX) PACK PO SCH ×3 (08:07→20:16)
[2019-08-07] MEDS: risperiDONE 1 MG (RisperDAL) TAB PO SCH ×2 (08:07→20:18)
[2019-08-07] MEDS: LIDOCAINE 4% (SALONPAS) PATCH TOP SCH (08:08)
[2019-08-07] MEDS: SENNA W/DOCUSATE (SENOKOT S) TABLET PO SCH ×2 (08:08→20:16)
--- NOTE | 2019-08-07 08:33 | Diagnostic Imaging Report ---
EXAMINATION: Chest 1 view HISTORY: COPD exacerbation, lung cancer FINDINGS: Comparison is 08/06/2019. Left subclavian port is present with the tip in the superior vena cava. Vertebroplasty is present in the mid thoracic vertebrae. There is mild bibasilar atelectasis, slightly increased from the prior exam. No edema or pneumonia. No pneumothorax or pleural effusion. IMPRESSION: 1. New mild bibasilar atelectasis. Dictated by: Dictated on workstation # [id number]
--- NOTE | 2019-08-07 10:53 | Progress Note - Hospitalist ---
Subjective HPI/CC On Admission Date Seen by Provider: Aug 07, 2019 Time Seen by Provider: 10:15 CC: SOB HPI: This is a 69yoWF clinic pt of [facility] and Dr. Birmingham with a recent diagnosis of lung cancer former smoker who just quit recently who presented to the ER found to be in exacerbation of COPD who remains a DNR do no intubate but ABG reveals respiratory acidosis improved on biPAP, still belly breathing and now has experienced AF with RVR of heart rate of 170s and cardiology has been consulted and will manage that conservatively. Subjective/Events-last exam Patient is upset about being observed by the monitor. In addition the pain is back from her kyphoplasty. She complained of not being able to sleep last night and wanted some Benadryl but then she ended up falling asleep earlier this morning. She says she's too weak to have the Pruett catheter taken out. She does note that she has some discomfort related to her legs. She was started on Keflex for chronic venous insufficiency and recurrent cellulitis yesterday Review of Systems Musculoskeletal: back pain Neurological: Weakness, Confusion Objective Exam Vital Signs Vital Signs Date Time Temp Pulse Resp B/P (MAP) Pulse Ox O2 Delivery O2 Flow Rate FiO2 08/07/19 09:00 96 Nasal Cannula 3.00 08/07/19 08:00 36.2 87 20 106/78 (87) 08/04/19 10:54 32 Capillary Refill : Less Than 3 SecondsLess Than 3 Seconds General Appearance: No Apparent Distress, WD/WN, Obese, Other HEENT: Normal ENT Inspection (talkative) Neck: Supple Respiratory: Lungs Clear, Normal Breath Sounds, No Accessory Muscle Use, No Respiratory Distress Cardiovascular: Regular Rate, Rhythm, No Gallop, No Murmur Gastrointestinal: Normal Bowel Sounds, Non Tender, Soft Rectal: Deferred Back: Normal Inspection, Vertebral Tenderness Extremity: Inflammation, Pedal Edema Neurologic/Psychiatric: Alert, No Motor/Sensory Deficits, Other (anxious) Results/Procedures Lab Laboratory Tests 08/07/19 05:20 Patient resulted labs reviewed. Assessment/Plan Assessment and Plan Assess & Plan/Chief Complaint T6 compression fracture possibly pathologic status post kyphoplasty with more pain today Cancer the lung followed by Dr. Birmingham Hypertension improved Chronic venous stasis change will start back on Lasix and started on Keflex Confusion and Insomnia will add Benadryl when necessary Hypokalemia we'll replace Weakness-PT Clinical Quality Measures DVT/VTE Risk/Contraindication: Risk Factor Score Per Nursin RFS Level Per Nursing on Admit: 4+=Very High LAMONT LEWIS MD Aug 07, 2019 10:53
[2019-08-07] MEDS ORDERED: diphenhydrAMINE 25 MG TAB (BENADRYL) PO PRN (11:00)
[2019-08-07] MEDS: KCL 20 MEQ TAB (K-DUR) PO SCH (12:03)
--- NOTE | 2019-08-07 15:40 | Progress Note - Cardiology ---
Cardiology SOAP Progress Note Subjective: Chronic shortness of breath at usual baseline No cp Back pain improved No palp or syncope Objective: I&O/Vital Signs 08/07/19 08/07/19 08/07/19 08/07/19 03:49 03:58 07:00 07:05 Temp 37.2 37.2 Pulse 87 92 91 Resp 22 B/P (MAP) 110/68 (82) Pulse Ox 92 94 93 O2 Delivery Nasal Cannula Nasal Cannula O2 Flow Rate 3.00 3.00 08/07/19 08/07/19 08/07/19 08/07/19 07:05 08:00 09:00 11:16 Temp 36.2 Pulse 87 Resp 20 B/P (MAP) 106/78 (87) Pulse Ox 93 96 96 85 O2 Delivery Nasal Cannula Nasal Cannula Nasal Cannula Nasal Cannula O2 Flow Rate 3.00 3.00 3.00 3.00 08/07/19 08/07/19 12:00 13:02 Temp 37.1 Pulse 114 91 Resp 16 B/P (MAP) 113/82 (92) Pulse Ox 94 O2 Delivery Nasal Cannula O2 Flow Rate 3.00 08/07/19 00:00 Intake Total 910 ml Output Total 2050 ml Balance -1140 ml Weight (Pounds): 200 Weight (Ounces): 0.8 Weight (Calculated Kilograms): 90.672307 Constitutional: AAO x 3, well-developed, well-nourished Respiratory: chest expansion is symmetric, chest is bilaterally symmetric, rhonchi (scattered), other (fair air entry) Cardiovascular: regular rate-rhythm; No JVD; S1 and S2 Gastrointestional: No tender; soft, round Extremities: no lower extremity edema bilateral Neurologic/Psychiatric: oriented x 3, grossly intact Skin: No rash on exposed areas, No ulcerations on exposed areas Results/Procedures: Labs Laboratory Tests 08/06/19 15:42: Glucometer 260H 08/06/19 20:22: Glucometer 223H 08/07/19 05:20: White Blood Count 7.2, Red Blood Count 2.68L, Hemoglobin 8.2L, Hematocrit 27L, Mean Corpuscular Volume 99, Mean Corpuscular Hemoglobin 31, Mean Corpuscular Hemoglobin Concent 31L, Red Cell Distribution Width 17.0H, Platelet Count 217, Mean Platelet Volume 9.3, Neutrophils (%) (Auto) 83H, Lymphocytes (%) (Auto) 6L, Monocytes (%) (Auto) 10, Eosinophils (%) (Auto) 0, Basophils (%) (Auto) 0, Neutrophils # (Auto) 6.0, Lymphocytes # (Auto) 0.4L, Monocytes # (Auto) 0.8, Eosinophils # (Auto) 0.0, Basophils # (Auto) 0.0, Sodium Level 145, Potassium Level 3.0L, Chloride Level 105, Carbon Dioxide Level 29, Anion Gap 11, Blood Urea Nitrogen 13, Creatinine 0.65, Estimat Glomerular Filtration Rate > 60, BUN/Creatinine Ratio 20, Glucose Level 130H, Calcium Level 7.9L 08/07/19 11:10: Glucometer 171H Microbiology 07/26/19 Blood Culture - Final, Complete No growth 08/04/19 MRSA Screen - Final, Complete MRSA not isolated 07/26/19 Urine Culture - Final, Complete 3 or more isolates A/P: Assessment: Paroxysmal atrial fibrillation with RVR (first documented on EKG of 07-27-19) - currently SR. Anticoagulation is on hold for kyphoplasty Echocardiogram of Jul 27, [address] Arevalo showed LVEF 55-65%. PASP 20-25mmHg. Mild TR. Acute respiratory failure with acute exacerbation of COPD Severe back pain, improved after thoracic kyphoplasty of Aug 05, 2019 Anxiety Hx of Lung CA- followed by Dr. Birmingham. H/O tobaccoism Obesity Plan: * I discussed her CV issues with her and answered questions * Resume anticoagulation when acceptable to the Surgical Service * Treatment of COPD and resp failure is with [facility] CARLOS ENRIQUE CAMPBELL MD FACP FAC CCDS Aug 07, 2019 15:40
[2019-08-07] MEDS: PREPARATION H OINTMENT 57 GR TUBE PR PRN ×2 (15:41→21:27)
--- NOTE | 2019-08-07 18:37 | NUR ---
PT REFUSED LOPRESSER AND CARDIZEM. SHE SAID SHE" WAS NOT FEELING QUITE HERSELF". SHE NEW HER SYTALIC BP WAS 107 AND HER HR WAS 65. "THAT IS CLOSE ENOUGH FOR ME TO NOT WANT IT" SHE SAID.
[2019-08-07] MEDS: PATCH REMOVAL TP SCH (21:02)
--- NOTE | 2019-08-07 23:08 | NUR ---
2220-this rn received call from [facility] informing that this pt has had 2 runs of svt 2159 for about 30 seconds & again at 2212 rate 215 greater than 215 2242-this spoke with dr. sim about these runs of svt- b/p 105/66 hr 120 temp 36.9 spo2 96% 3lnc no pain at this time-tele monitoring states pt is currently in ST, [address] also this rn received order for Cardizem CD 180 mg x1 dose now & give scheduled 0000- Lopressor & Cardizem as schedule in addition as long as pt vitals meet the parameters at 0000.
[2019-08-07] MEDS ORDERED: DILTIAZEM 180 MG (CARDIZEM CD) CAP PO ONE (23:15)
[2019-08-08 00:43] VITALS: BP 120/66
[2019-08-08] MEDS: meTOprolol 5 MG/5 ML (LOPRESSOR) VIAL IV SCH ×2 (00:44→07:02)
[2019-08-08] MEDS: DILTIAZEM 30 MG (CARDIZEM) TAB PO SCH ×2 (00:44→07:02)
[2019-08-08] MEDS: oxyCODONE/APAP 10/325MG (PERCOCET 10) TABLET PO PRN (00:59)
[2019-08-08 04:00] VITALS: BP 108/63
[2019-08-08 05:56] LABS: BASOPHILS % (AUTO) 1 % (0-10); EOSINOPHILS % (AUTO) 1 % (0-10); HEMATOCRIT 30 % (35-52); HEMOGLOBIN 9.4 G/DL (11.5-16.0); LYMPHOCYTES # (AUTO) 0.4 X 10^3 (1.0-4.0); LYMPHOCYTES % (AUTO) 6 % (12-44); MEAN CORPUSCULAR HEMOGLOBIN 31 PG (25-34); MEAN CORPUSCULAR HGB CONC 31 G/DL (32-36); MEAN CORPUSCULAR VOLUME 99 FL (80-99); MEAN PLATELET VOLUME 9.4 FL (7.4-10.4); MONOCYTES # (AUTO) 0.7 X 10^3 (0.0-1.0); MONOCYTES % (AUTO) 11 % (0-12); NEUTROPHILS # (AUTO) 5.3 X 10^3 (1.8-7.8); NEUTROPHILS % (AUTO) 82 % (42-75); PLATELET COUNT 259 10^3/uL (130-400); RED CELL DISTRIBUTION WIDTH 17.4 % (10.0-14.5); WHITE BLOOD COUNT 6.5 10^3/uL (4.3-11.0)
[2019-08-08 06:18] LABS: ALANINE AMINOTRANSFERASE 61 U/L (0-55); ALBUMIN 3.2 GM/DL (3.2-4.5); ALKALINE PHOSPHATASE 108 U/L (40-136); BILIRUBIN,TOTAL 0.5 MG/DL (0.1-1.0); BUN/CREATININE RATIO 20; CALCIUM 8.2 MG/DL (8.5-10.1); CARBON DIOXIDE 29 MMOL/L (21-32); CHLORIDE 105 MMOL/L (98-107); CREATININE SERUM 0.74 MG/DL (0.60-1.30); GFR ESTIMATED > 60; GLUCOSE 158 MG/DL (70-105); POTASSIUM 3.1 MMOL/L (3.6-5.0); SODIUM 143 MMOL/L (135-145); TOTAL PROTEIN 5.3 GM/DL (6.4-8.2)
[2019-08-08] MEDS: inSUlin ASPART (NovoLOG) 1 UNIT/0.01 ML (CHARGE PER UNIT) SC SCH ×2 (06:46→11:13)
[2019-08-08] MEDS: RT-ALBUTEROL/IPRATROPIUM 3 ML (DUONEB) VIAL INH SCH (06:59)
[2019-08-08] MEDS: KCL 20 MEQ TAB (K-DUR) PO SCH (07:02)
[2019-08-08 07:03] VITALS: BP 119/74
[2019-08-08 08:00] VITALS: BP 112/56
[2019-08-08] MEDS: PREPARATION H OINTMENT 57 GR TUBE PR PRN (08:11)
[2019-08-08] MEDS: FUROSEMIDE 40 MG (LASIX) TAB PO SCH (08:12)
[2019-08-08] MEDS: CEPHALEXIN 250 MG (KEFLEX) CAP PO SCH (08:13)
[2019-08-08] MEDS: POLYETHYLENE GLYCOL 17 GM (MIRALAX) PACK PO SCH (08:15)
[2019-08-08] MEDS: ZIPRASIDONE 20 MG INJ (GEODON) VIAL IM SCH (08:16)
[2019-08-08] MEDS: risperiDONE 1 MG (RisperDAL) TAB PO SCH (08:17)
[2019-08-08] MEDS: SENNA W/DOCUSATE (SENOKOT S) TABLET PO SCH (08:17)
[2019-08-08] MEDS: LIDOCAINE 4% (SALONPAS) PATCH TOP SCH (08:18)
--- NOTE | 2019-08-08 08:31 | Diagnostic Imaging Report ---
CHEST 1 VIEW, AP/PA ONLY Indication: Dyspnea, COPD exacerbation Comparison: 08/07/2019 Findings: Patchy bibasilar subsegmental atelectasis is unchanged. No pleural effusion or pneumothorax. Stable left subclavian Port-A-Cath. Stable cardiomediastinal silhouette. Impression: 1. No change in basilar subsegmental atelectasis. No adverse development. Dictated by: Dictated on workstation # [id number]
--- NOTE | 2019-08-08 08:41 | Cardiology Progress Note ---
Subjective Date Seen by Provider: Aug 08, 2019 Time Seen by Provider: 08:38 Subjective/Events-last exam Patient is sitting up in bed, reports improvement of back pain since surgery. Denies any chest pain or dyspnea. Review of Systems General: No Chills, No Night Sweats; Fatigue; No Malaise, No Appetite, No Other HEENT: No Head Aches, No Visual Changes, No Eye Pain, No Ear Pain, No Dysphasia, No Sinus Congestion, No Post Nasal Drip, No Sore Throat, No Other Pulmonary: No Dyspnea, No Cough, No Pleuritic Chest Pain, No Other Cardiovascular: No: Chest Pain, Palpitations, Orthopnea, Paroxysmal Noc. Dyspnea, Edema, Lt Headedness, Other Objective-Cardiology Exam Last Set of Vital Signs Vital Signs 08/04/19 08/08/19 10:54 08:00 Temp 37.0 Pulse 89 Resp 18 B/P (MAP) 112/56 (74) Pulse Ox 96 O2 Delivery Nasal Cannula O2 Flow Rate 3.00 FiO2 32 Capillary Refill : Less Than 3 SecondsLess Than 3 Seconds I&O Intake and Output 08/08/19 00:00 Intake Total 1395 ml Output Total 1825 ml Balance -430 ml Intake Oral 1395 ml Output Urine Total 1825 ml # Bowel Movements 1 General: Alert, Oriented X3, Cooperative, No Acute Distress HEENT: Mucous Memb Moist/[place] Neck: Supple, No JVD, No Thyromegaly Lungs: Clear to Auscultation, Normal Air Movement Heart: Normal S1, Normal S2, No Murmurs, Other (irregularly irregular) Abdomen: Normal Bowel Sounds, Soft, No Tenderness Extremities: No Clubbing, No Cyanosis, Other (1+ pitting edema bilaterally) Skin: No Rashes, No Breakdown Neuro: Normal Speech, Strength at 5/5 X4 Ext, Cranial Nerves 3-12 NL Psych/Mental Status: Mental Status NL, Mood NL Results Lab Laboratory Tests 08/08/19 05:38 A/P-Cardiology Admission Diagnosis Afib with RVR AE COPD Hx lung CA Acute renal failure Assessment/Plan Paroxysmal atrial fibrillation/flutter with rapid response returned to sinus tachycardia, continue to monitor. Planning to start OAC once ok with Dr. Wallace. COPD with episode of exacerbation, improved, managed by primary care team Acute psychosis, change in mental status, improved. Managed by medical team. Back pain, T6 fracture, s/p kyphoplasty with Dr. Wallace on 08/05/19 Metabolic acidosis with acute respiratory failure, better at this time. Hx of Lung CA- followed by Dr. Birmingham. Acute renal failure- continue IVFs, continue to monitor. Ex tobaccoism Obesity Patient was seen and evaluated with Cheyanne, examination performed, management plan was discussed, agree with the current scribed note, I made few changes to the note using Italic font Patient is feeling well, reporting significant improvement Appeared to be in atrial flutter with controlled rate at this time Once okay with Dr. Wallace I would like to start her back on oral anticoagulation Continue to monitor blood pressure and heart rate Clinical Quality Measures DVT/VTE Risk/Contraindication: Risk Factor Score Per Nursin RFS Level Per Nursing on Admit: 4+=Very High Supervisory-Addendum Brief Supervisory Addendum Participated in pt care: history, MDM, physical Personally performed: exam, history, MDM Care discussed with: CHEYANNE ARTHUR Aug 08, 2019 8:41 am CHAGO EISENBERG MD Aug 08, 2019 9:58 am
--- NOTE | 2019-08-08 09:27 | NUR ---
Palliative Care RN in to see patient. She is resting with eyes closed but awakens easily to verbal cues. SHe sounds and acts like a whole new person and feels like one by her own words. She reports going to surgery and then the next day she was so much better. Dr. Blackwood arrived for rounding and we discussed bone scan and something for maybe bone strength if needed as she has had this acute and historical compression fractures in her back. Also discussed resuming PT/OT which I was given order to enter which has been done. She reports having a large hemorrhoid which make having bowel movements difficult and may need an softening agent to get her going. She ultimately wants to go home where she lived alone, is not sold on IRF but doesn't know much about it.
[2019-08-08 10:42] VITALS: BP 112/56
--- NOTE | 2019-08-08 11:00 | Physical Therapy Evaluation ---
PT Evaluation-General Medical Diagnosis Admission Date Jul 26, 2019 at 23:40 Medical Diagnosis: COPD; lunc CA; T6 kyphoplasty Onset Date: Jul 26, 2019 Therapy Diagnosis Therapy Diagnosis: weakness; abn gait Height/Weight Height (Feet): 5 Height (Inches): 5.00 Weight (Pounds): 200 Weight (Ounces): 0.8 Precautions Precautions/Isolations: Fall Prevention, Standard Precautions Weight Bear Status Right Lower Extremity: Right Weight Bearing/Tolerated Left Lower Extremity: Left Weight Bearing/Tolerated Referral Physician: Jaison Reason for Referral: Evaluation/Treatment Medical History Pertinent Medical History: COPD Additional Medical History lung CA; a fib, RVR, hyponatreia, metabolic acidosis Current History Post T6 compression FX with kyphoplasty Reviewed History: Yes Social History Home: Single Level Current Living Status: Alone (family nearby) Entry Into Home: Stairs Without Railing PT Steps Into Home: 2 Prior Prior Level of Function SCALE: Activities may be completed with or without assistive devices. 4-Ngnbxdtfjn-pramskr completes the activity by him/herself with no assistance from a helper. 5-Set-up or Clean-up Assistance-helper sets up or cleans up; patient completes activity. Campbell assists only prior to or following the activity. 4-Supervision or Touching Assistance-helper provides verbal cues and/or touching/steadying and/or contact guard assistance as patient completes activity. Assistance may be provided throughout the activity or intermittently. 3-Partial/Moderate Assistance-helper does LESS THAN HALF the effort. Campbell lifts, holds or supports trunk or limbs, but provides less than half the effort. 2-Substantial/Maximal Assistance-helper does MORE THAN HALF the effort. Campbell lifts or holds trunk or limbs and provides more than half the effort. 5-Fkfzlftrr-ljlejm does ALL the effort. Patient does none of the effort to complete the activity. Or, the assistance of 2 or more helpers is required for the patient to complete the activity. If activity was not attempted, code reason: 7-Patient Refused. 9-Not Applicable-not attempted and the patient did not perform the activity before the current illness, exacerbation or injury. 10-Not Attempted due to Environmental Limitations-(lack of equipment, weather restraints, etc.). 88-Not Attempted due to Medical Conditions or Safety Concerns. Bed Mobility: 6 Transfers (B,C,W/C): 6 Gait: 6 Indoor Mobility (Ambulation): Independent Stairs: Independent pt was indep at [facility] PT Evaluation-Current Subjective Pt reports she feels so much better since surgery. Agrees to PT. Pt/Family Goals return home and care for herself Objective Patient Orientation: Person, Place, Time, Situation Attachments: Oxygen (in situ post and during treatment), Pruett Catheter, IV ROM/Strength ROM Lower Extremities WFL Strength Lower Extremities grossly 4-/5 Integumentary/Posture Integumentary refer to nursing assessment Bowel Incontinence: No Bladder Incontinence: Pruett Cath Posture rounded shoulders and forward head. Neuromuscular (Tone, Coordination, Reflexes) intact and functional Sensory Vision: Wears Glasses Hearing: Functional Hand Dominance: Right Sensation Right Lower Extremit: Intact Sensation Left Lower Extremity: Intact Transfers Roll Left to Right (QC): 3 Lying to Sitting/Side of Bed(Q: 3 Sit to Stand (QC): 3 Chair/Sxh-sh-Ylpkn Xfer(QC): 3 generally min assist with all functional transfers; skilled cues for safety and sequencing. Gait Does the Patient Walk?: Yes Mode of Locomotion: Walk Anticipated Mode of Locomotion: Walk Distance (FIM): 1=up to 49 ft Walk 10 feet (QC): 3 Gait Assistive Device: FWW Comments/Gait Description pt walked x 20 ft with FWW with CGA with skilled cues for safety; tends to lean heavily on her walker with decreased step length and foot clearance. Balance Sitting Static: Good Sitting Dynamic: Good Standing Static: Fair Standing Dynamic: Fair Treatment Pt transferred out of bed and walked a short distance before sitting in the chair. Up in chair post treatment with needs met and oxygen in situ. Assessment/Needs Pt has had an extensive hospital stay that began with COPD exacerbation. She was being treated and then was found to have a compression fx at T6 and that has been repaired. She is moving better and able to better particiapte; she has impaired functional strength and mobility with limited ability to return home and care for herself at this time. She will benefit from skilled PT to address strength, mobility and safety to allow her to return home as before. Rehab Potential: Good PT Tank Bottom Assembler Goals Fpc Goals PT Fpc Goals Time Frame: Aug 12, 2019 Lying-Sitting on Side/Bed(QC): 4 Sit to Stand (QC): 4 Roll Left to Right (QC): 4 Chair/Xrr-th-Itncf Xfer(QC): 4 Walk 50ft with 2 Turns (QC): 4 PT Plan Problem List Problem List: Activity Tolerance, Functional Strength, Safety, Balance, Gait, Transfer, Bed Mobility Treatment/Plan Treatment Plan: Continue Plan of Care Treatment Plan: Bed Mobility, Education, Functional Activity Sravani, Functional Strength, Gait, Safety, Therapeutic Exercise, Transfers Treatment Duration: Aug 12, 2019 Frequency: 6 times per week Estimated Hrs Per Day: .5 hour per day Patient and/or Family Agrees t: Yes Safety Risks/Education Patient Education: Transfer Techniques, Safety Issues Teaching Recipient: Patient Teaching Methods: Demonstration, Discussion Response to Teaching: Reinforcement Needed Discharge Recommendations Therapy Discharge Recommendati: Post Acute PT Time/GCodes Time In: 1010 Time Out: 1035 Total Billed Treatment Time: 25 Total Billed Treatment visit EVM 15 FA 10 CARINA TOVAR PT Aug 08, 2019 11:00
[2019-08-08] MEDS: RT-ALBUTEROL/IPRATROPIUM 3 ML (DUONEB) VIAL INH PRN (11:21)
--- NOTE | 2019-08-08 11:22 | NUR ---
IRF Evaluation Order received to evaluate patient for the ARU. Chart review complete and findings discussed with Dr. Blackwood - patient accepted for admission. Anticipate admission, 08/08/19. Thank you for this referral.
--- NOTE | 2019-08-08 11:23 | Discharge Summary ---
SAMMIE BRANDON MED STUDENT 08/08/19 1123: Diagnosis/Chief Complaint Date of Admission Jul 26, 2019 at 23:40 Date of Discharge Aug 08, 2019 Discharge Date: Aug 08, 2019 Admission Diagnosis Respiratory failure AF w/RVR Lung cancer Plan: ICU DNR Prognosis poor Primary Care Ada Rashid Coding Validator Discharge Diagnosis (1) Acute on chronic respiratory failure Status: Acute (2) Compression fracture of T6 vertebra Status: Acute (3) Lung cancer Status: Chronic (4) COPD (chronic obstructive pulmonary disease) Status: Chronic (5) Uncontrolled hypertension Status: Acute (6) Elevated troponin Status: Acute (7) Anxiety Status: Acute Discharge Summary Discharge Physical Exam Allergies: Coded Allergies: levofloxacin (Verified Allergy, Severe, TACHYCARDIA, 11/12/18) Penicillins (Verified Allergy, Unknown, FAMILY ALLERGY, 11/12/18) Uncoded Allergies: SURGICAL STEEL (Allergy, Intermediate, RASH, 05/10/18) Vitals & I&Os Vital Signs Date Time Temp Pulse Resp B/P (MAP) Pulse Ox O2 Delivery O2 Flow Rate FiO2 08/08/19 10:42 37.0 92 95 32 08/08/19 09:00 Nasal Cannula 3.00 08/08/19 08:00 18 112/56 (74) General Appearance: No Apparent Distress, Chronically ill, Obese Respiratory: Lungs Clear, No Accessory Muscle Use, No Respiratory Distress, Decreased Breath Sounds Cardiovascular: Regular Rate, Rhythm, No Gallop, No Murmur, Normal Peripheral Pulses Extremity: No Calf Tenderness, Pedal Edema Neurologic/Psychiatric: Alert, Oriented x3, Normal Mood/Affect Hospital Course Ms. Mccloud presented to ER in exacerbation of COPD and respiratory distress, has seen pulmonology. She had recently been diagnosed with lung cancer, is DNR do not intubate. During initial management of COPD exacerbation was found to be in Afib with RVR, heart rate of 170s, has seen cardiology. She also had been experiencing back pain, was found to have T6 compression fracture and underwent kyphoplasty. She continues to have back pain. Noted to have confusion and sundowning, also reports having insomnia. When seen today she reports feeling well overall, she reports her breathing is better now than it had been prior to admission. Her only complaint is of leg weakness. She still has a lopez catheter in due to concerns about her legs being too weak to make it to a toilet in time. She will be discharged to IRF. Labs (last 24 hrs) Laboratory Tests 08/07/19 16:03: Glucometer 199H 08/07/19 20:32: Glucometer 139H 08/08/19 05:38: White Blood Count 6.5, Red Blood Count 3.02L, Hemoglobin 9.4L, Hematocrit 30L, Mean Corpuscular Volume 99, Mean Corpuscular Hemoglobin 31, Mean Corpuscular Hemoglobin Concent 31L, Red Cell Distribution Width 17.4H, Platelet Count 259, Mean Platelet Volume 9.4, Neutrophils (%) (Auto) 82H, Lymphocytes (%) (Auto) 6L, Monocytes (%) (Auto) 11, Eosinophils (%) (Auto) 1, Basophils (%) (Auto) 1, Neutrophils # (Auto) 5.3, Lymphocytes # (Auto) 0.4L, Monocytes # (Auto) 0.7, Eosinophils # (Auto) 0.0, Basophils # (Auto) 0.0, Sodium Level 143, Potassium Level 3.1L, Chloride Level 105, Carbon Dioxide Level 29, Anion Gap 9, Blood Urea Nitrogen 15, Creatinine 0.74, Estimat Glomerular Filtration Rate > 60, BUN/Creatinine Ratio 20, Glucose Level 158H, Calcium Level 8.2L, Corrected Calcium 8.8, Total Bilirubin 0.5, Aspartate Amino Transf (AST/SGOT) 21, Alanine Aminotransferase (ALT/SGPT) 61H, Alkaline Phosphatase 108, Total Protein 5.3L, Albumin 3.2 08/08/19 05:50: Glucometer 169H 08/08/19 11:09: Glucometer 152H Microbiology 07/26/19 Blood Culture - Final, Complete No growth 08/04/19 MRSA Screen - Final, Complete MRSA not isolated 07/26/19 Urine Culture - Final, Complete 3 or more isolates Patient resulted labs reviewed. Pending Labs Laboratory Tests 08/08/19 05:38: White Blood Count 6.5, Red Blood Count 3.02, Hemoglobin 9.4, Hematocrit 30, Mean Corpuscular Volume 99, Mean Corpuscular Hemoglobin 31, Mean Corpuscular Hemoglobin Concent 31, Red Cell Distribution Width 17.4, Platelet Count 259, Mean Platelet Volume 9.4, Neutrophils (%) (Auto) 82, Lymphocytes (%) (Auto) 6, Monocytes (%) (Auto) 11, Eosinophils (%) (Auto) 1, Basophils (%) (Auto) 1, Neutrophils # (Auto) 5.3, Lymphocytes # (Auto) 0.4, Monocytes # (Auto) 0.7, Eosinophils # (Auto) 0.0, Basophils # (Auto) 0.0, Sodium Level 143, Potassium Level 3.1, Chloride Level 105, Carbon Dioxide Level 29, Anion Gap 9, Blood Urea Nitrogen 15, Creatinine 0.74, Estimat Glomerular Filtration Rate > 60, BUN/Creatinine Ratio 20, Glucose Level 158, Calcium Level 8.2, Corrected Calcium 8.8, Total Bilirubin 0.5, Aspartate Amino Transf (AST/SGOT) 21, Alanine Aminotransferase (ALT/SGPT) 61, Alkaline Phosphatase 108, Total Protein 5.3, Albumin 3.2 08/08/19 05:50: Glucometer 169 08/08/19 11:09: Glucometer 152 Discharge Home Medications: Active Scripts Active Reported Ventolin Hfa (Albuterol Sulfate) 18 Gm Hfa.aer.ad 2 Puff INH Q6H PRN Metformin HCl 500 Mg Tablet 500 Mg PO BID Fluticasone Propionate 16 Gm [place] [employer].susp 1 [place] [employer] NS DAILY Diltiazem 24Hr ER (Diltiazem HCl) 240 Mg Cap.er.24h 240 Mg PO DAILY Lutein 10 Mg Tablet 10 Mg PO DAILY Vitamin D (Cholecalciferol (Vitamin D3)) 2,000 Unit Capsule 2,000 Unit PO DAILY Cetirizine HCl 10 Mg Tablet 10 Mg PO DAILY Daily Vitamin Formula (Multivitamin) 1 Each Tablet 1 Tab PO DAILY Metoprolol Tartrate 25 Mg Tablet 25 Mg PO BID Dulera 200 Mcg/5 Mcg Inhaler (Mometasone/Formoterol) 13 Gm Hfa.aer.ad 2 Puff IH BID Spiriva (Tiotropium [place]) 1 Inh Aerp 1 Cap IH DAILY Montelukast Sodium 10 Mg Tablet 10 Mg PO DAILY Instructions to patient/family Please see electronic discharge instructions given to patient. Clinical Quality Measures DVT/VTE Risk/Contraindication: Risk Factor Score Per Nursin RFS Level Per Nursing on Admit: 4+=Very High MELLY HEIN DO 08/08/192057: Discharge Summary Discharge Physical Exam Allergies: Coded Allergies: levofloxacin (Verified Allergy, Severe, TACHYCARDIA, 11/12/18) Penicillins (Verified Allergy, Unknown, FAMILY ALLERGY, 11/12/18) Uncoded Allergies: SURGICAL STEEL (Allergy, Intermediate, RASH, 05/10/18) General Appearance: No Apparent Distress, WD/WN, Chronically ill Respiratory: Lungs Clear, Decreased Breath Sounds Cardiovascular: Regular Rate, Rhythm Neurologic/Psychiatric: Alert, Oriented x3, No Motor/Sensory Deficits, Normal Mood/Affect Hospital Course Was the Problem List Reviewed?: Yes Hospital Course: Pt had a lengthy hospital course for two weeks. She was admitted for respiratory insufficiency placed on bi-PAP and pneumonia with history of lung cancer just diagnosed by Dr. Birmingham and Dr. De La Cruz. Compression fracture required kyphoplasty but she had multiple ICU transfers due to worsening respiratory status and encephalopathy so she was very weakened but breathing better at time of DC and back on baseline at 3 liters of O2. PT and OT orders placed and she was deemed stable for DC to inpatient rehab where she will begin her recovery and be able to undergo lung cancer treatment. Discussion & Recommendations Discharge Planning: <30 minutes discharge planning Supervisory-Addendum Brief Verification & Attestation Participated in pt care: history, MDM, physical Personally performed: exam, history, MDM, supervision of care Care discussed with: Medical Student Procedures: n/a Results interpretation: Verified all documentation Verification and Attestation of Medical Student E/M Service A medical student performed and documented this service in my presence. I reviewed and verified all information documented by the medical student and made modifications to such information, when appropriate. I personally performed the physical exam and medical decision making. Melly Hein, Aug 08, 2019,20:59 Problem Qualifiers (1) Acute on chronic respiratory failure: Respiratory failure complication: unspecified whether with hypoxia or hypercapnia Qualified Codes: J96.20 - Acute and chronic respiratory failure, unspecified whether with hypoxia or hypercapnia (2) Lung cancer: Laterality: left SAMMIE BRANDON MED STUDENT Aug 08, 2019 11:23 MELLY HEIN DO Aug 08, 2019 20:58
--- NOTE | 2019-08-08 12:01 | NUR ---
1123 REPORT GIVEN TO DANE LOPEZ 1150 PATIENT LEFT FLOOR VIA WHEELCHAIR WITH P.T. STAFF
[2019-08-08] MEDS ORDERED: RT-ALBUTEROL/IPRATROPIUM 3 ML (DUONEB) VIAL INH SCH (14:00)
--- NOTE | 2019-08-15 12:25 | Physician Query Clarification ---
PQ-Intro New Diagnosis Admission/Discharge Admission Date: Jul 26, 2019 at 23:40 Discharge Date: Aug 08, 2019 at 11:45 The medical record reflects the following clinical scenario: History/Risk Factors: acute on chronic respiratory failure w/hypoxia, emphysema acute exacerbation, acute renal failure, Lt lung CA, metabolic acidosis Clinical Findings: Lactic acid 3.58, P 140, R 25, T 35.8, WBC 12.0 Treatment: IV Vancomycin Question: What condition best reflects the above clinical scenario? Please document a response in the Progress Noter or Discharge Summary. 1. Sepsis 2. No sepsis 3. Other, with explanation of the clinical findings. 4. Clinically undetermined, no explanation for the clinical findings. PHYSICIAN RESPONSE What condition reflects above: Clinically undetermined Please remember a lack of response to the above will prompt a phone page by CDI/Coding staff. In responding to this query, please exercise your independent professional judgment. The purpose of this communication is to more accurately reflect the complexity of your patients condition. The fact that a question is asked does not imply that any particular answer is desired or expected. Thank you for your timely response to this clarification. Requestors name: Janet THIS PHYSICIAN QUERY FORM IS A PERMANENT PART OF THE MEDICAL RECORD JANET FOY Aug 15, 2019 12:25 CHARLY DAMON DO Aug 15, 2019 12:58 POS
--- NOTE | 2019-08-15 12:30 | Physician Query Clarification ---
PQ-Intro New Diagnosis Admission/Discharge Admission Date: Jul 26, 2019 at 23:40 Discharge Date: Aug 08, 2019 at 11:45 The medical record reflects the following clinical scenario: History/Risk Factors: acute on chronic respiratory failure, acute exacerbation emphysema, acute renal failure, Lt lung CA Clinical Findings: troponin 07/26 - 0.031, 07/27 - 0.044 Treatment: IV Lopressor Question: What condition best reflects the above clinical scenario? Please document a response in the Progress Noter or Discharge Summary. 1. Type 2 RI 2. No type 2 RI or other type RI all ruled out 3. Other, with explanation of the clinical findings. 4. Clinically undetermined, no explanation for the clinical findings. PHYSICIAN RESPONSE What condition reflects above: 1 (In my opinion, it was type 2 RI due resp failure. This is Dr Arevalo's patient and he was seeing pt at time of troponin elevation. Please check with him, also) Please remember a lack of response to the above will prompt a phone page by CDI/Coding staff. In responding to this query, please exercise your independent professional judgment. The purpose of this communication is to more accurately reflect the complexity of your patients condition. The fact that a question is asked does not imply that any particular answer is desired or expected. Thank you for your timely response to this clarification. Requestors name: Janet THIS PHYSICIAN QUERY FORM IS A PERMANENT PART OF THE MEDICAL RECORD JANET FOY Aug 15, 2019 12:30 CARLOS ENRIQUE LAWRENCE MD [facility] CCDSOct 2018 09:40 POS
--- NOTE | 2019-08-15 12:36 | Physician Query Clarification ---
PQ-Further Specificity Admission/Discharge Admission Date: Jul 26, 2019 at 23:40 Discharge Date: Aug 08, 2019 at 11:45 The medical record reflects the following clinical scenario: History/Risk Factors: acute on chronic respiratory failure, acute exacerbation emphysema, acute renal failure, Lt. lung CA Clinical Findings: WBC 12.0, SOB, pursed lipped breathing, decreased breath sounds Treatment: IV Vancomycin Question: Can you further specify if patient had pneumonia or not. Pneumonia only mentioned in body of DS per the clinical indicators above? Please document a response in the Progress Notes or Discharge Summary. 1. Yes, patient had pneumonia 2. No, pneumonia ruled out 3. Other, with explanation of the clinical findings. 4. Clinically undetermined, no explanation for the clinical findings. PHYSICIAN RESPONSE Can you specify per above: 2 Please remember a lack of response to the above will prompt a phone page by CDI/Coding staff. In responding to this query, please exercise your independent professional judgment. The purpose of this communication is to more accurately reflect the complexity of your patients condition. The fact that a question is asked does not imply that any particular answer is desired or expected. Thank you for your timely response to this clarification. Requestors name: Janet THIS PHYSICIAN QUERY FORM IS A PERMANENT PART OF THE MEDICAL RECORD JANET FOY Aug 15, 2019 12:36 CHARLY DAMON DO Aug 15, 2019 12:58 POS
--- NOTE | 2019-08-15 12:41 | Physician Query Clarification ---
PQ-Further Specificity Admission/Discharge Admission Date: Jul 26, 2019 at 23:40 Discharge Date: Aug 08, 2019 at 11:45 The medical record reflects the following clinical scenario: History/Risk Factors: acute on chronic respiratory failure, acute exacerbation emphysema, acute renal failure, Lt. lung CA, metabolic acidosis Clinical Findings: psychosis, confusion Treatment: Geodon 20 mg IM Question: Can you further specify encephalopathy per the clinical indicators above? Please document a response in the Progress Notes or Discharge Summary. 1. Metabolic encephalopathy 2. encephalopathy not further specified 3. Other, with explanation of the clinical findings. 4. Clinically undetermined, no explanation for the clinical findings. PHYSICIAN RESPONSE Can you specify per above: 1 Please remember a lack of response to the above will prompt a phone page by CDI/Coding staff. In responding to this query, please exercise your independent professional judgment. The purpose of this communication is to more accurately reflect the complexity of your patients condition. The fact that a question is asked does not imply that any particular answer is desired or expected. Thank you for your timely response to this clarification. Requestors name: Janet THIS PHYSICIAN QUERY FORM IS A PERMANENT PART OF THE MEDICAL RECORD JANET FOY Aug 15, 2019 12:41 CHARLY DAMON DO Aug 15, 2019 12:58 POS
--- NOTE | 2019-08-24 10:28 | Physician Query Clarification ---
PQ-Intro New Diagnosis Admission/Discharge Admission Date: Jul 26, 2019 at 23:40 Discharge Date: Aug 08, 2019 at 11:45 The medical record reflects the following clinical scenario: History/Risk Factors: acute on chronic respiratory failure, acute exacerbation emphysema, acute renal failure, Lt lung CA Clinical Findings: troponin 07/26 - 0.031, 07/27 - 0.044 Treatment: IV Lopressor Question: What condition best reflects the above clinical scenario? Please document a response in the Progress Noter or Discharge Summary. 1. Type 2 AZ 2. No type 2 AZ or other type AZ all ruled out 3. Other, with explanation of the clinical findings. 4. Clinically undetermined, no explanation for the clinical findings. PHYSICIAN RESPONSE What condition reflects above: 2 Explanation of clincal finding mild troponin elevation did not reach significant changes to be considered AZ Please remember a lack of response to the above will prompt a phone page by CDI/Coding staff. In responding to this query, please exercise your independent professional judgment. The purpose of this communication is to more accurately reflect the complexity of your patients condition. The fact that a question is asked does not imply that any particular answer is desired or expected. Thank you for your timely response to this clarification. Requestors name: Janet THIS PHYSICIAN QUERY FORM IS A PERMANENT PART OF THE MEDICAL RECORD JANET FOY Aug 24, 2019 10:28 CHAGO DIEZ MD Aug 24, 2019 16:22 POS
== END 2019-08-08 11:45 | DRG 166 ==
LOC: EDUNIT# 21:21 → ER 21:22 → ICU 23:40 → 4TH 07-28 11:03 → ICU 07-28 12:24 → 4TH 07-29 12:57 → ICU 07-30 03:50 → 4TH 08-02 07:50
PROVIDERS: ADMIT Internal Medicine; ATTEND Internal Medicine
PROC: 0PU43JZ Supplement Thoracic Vertebra with Synthetic Substitute, Percutaneous Approach (ICD-10-PCS; 2019-08-05)
PROC: 0PB43ZX Excision of Thoracic Vertebra, Percutaneous Approach, Diagnostic (ICD-10-PCS; 2019-08-05)
PROC: 0PS43ZZ Reposition Thoracic Vertebra, Percutaneous Approach (ICD-10-PCS; principal; 2019-08-05 13:36)
DX: J96.21 Acute and chronic respiratory failure with hypoxia (principal); J43.9 Emphysema, unspecified; N17.9 Acute kidney failure, unspecified; C34.91 Malignant neoplasm of unspecified part of right bronchus or lung; E87.2 Acidosis; I47.1 Supraventricular tachycardia; G93.41 Metabolic encephalopathy; Z66 Do not resuscitate; E87.1 Hypo-osmolality and hyponatremia; J98.11 Atelectasis; I48.0 Paroxysmal atrial fibrillation; M80.08XA Age-related osteoporosis with current pathological fracture, vertebra(e), initial encounter for fracture; I10 Essential (primary) hypertension; R79.89 Other specified abnormal findings of blood chemistry; E66.9 Obesity, unspecified; E11.65 Type 2 diabetes mellitus with hyperglycemia; E86.0 Dehydration; R60.0 Localized edema; J30.2 Other seasonal allergic rhinitis; M19.91 Primary osteoarthritis, unspecified site; F41.9 Anxiety disorder, unspecified; E83.41 Hypermagnesemia; Z87.891 Personal history of nicotine dependence; K75.4 Autoimmune hepatitis; K59.00 Constipation, unspecified; I87.2 Venous insufficiency (chronic) (peripheral); Z99.81 Dependence on supplemental oxygen; Z68.34 Body mass index [BMI] 34.0-34.9, adult
CPT/HCPCS: 36415; 36600; 51702; 70470; 71045; 71250; 72146; 80048; 80053; 80061; 80306; 81000; 82550; 82553; 82805; 82962; 83605; 83735; 83874; 83880; 84100; 84145; 84439; 84443; 84481; 84484; 85007; 85025; 85027; 85610; 85730; 87040; 87081; 87088; 87804; 88307; 88311; 93005; 93041; 93306; 93970; 94640; 94660; 94760; 96372; 96374; 96375; 99291; 99292

== ENCOUNTER 2019-08-08 11:14 | Inpatient (IN) | payer MEDICARE, MEDICAID ==
[~2019-08-08] VITALS: Ht 167 cm; Wt 91.1 kg
[2019-08-08] VITALS (8 sets, daily range): BP systolic 112–136; BP diastolic 56–77
[~2019-08-08 11:14] MED LIST changes: +ALBU18HF2 INH; +DILT240C PO; +FLUT16SP22 NS; +METF-397 PO; +METH5TAB5 PO
--- NOTE | 2019-08-08 11:50 | NUR ---
Pt admitted to room 232-1, with an admitting diagnosis of S/P Kyphoplasty on 08/08/19 from 4th floor, via w/c, accompanied by PT, RAI Choi introduced to surroundings, call light, bed controls, phone, TV, temperature control, lights, meal times, smoking policy, visitor policy, side rail policy, bathrooms and showers. Patient Rights given to patient in the handbook. RAI ELLIS verbalizes understanding that [facility] is not responsible for the loss or damage to any personal effects or valuables that are kept in the patients posession during their hospitalization. The following Patient Care Plans were discussed with the pt: Discharge Planning, Impaired Mobility, Self Care Deficit, Potential for fall/injury. RAI ELLIS acknowledges understanding of Interdisciplinary Patient Education. Patient informed about the Rapid Response Team and its purpose. Patient received Patient Rights Booklet, which includes Privacy Act Statement and Data Collection Information Summary. Pt working w PT immediately upon arrival.
--- NOTE | 2019-08-08 12:25 | Physical Therapy Evaluation ---
PT Evaluation-General Medical Diagnosis Admission Date Aug 08, 2019 at 11:45 Medical Diagnosis: COPD exac; T6 comp fx Onset Date: Aug 08, 2019 Therapy Diagnosis Therapy Diagnosis: abnormal gait Height/Weight Height (Feet): 5 Height (Inches): 5.00 Weight (Pounds): 200 Weight (Ounces): 0.8 Precautions Precautions/Isolations: Standard Precautions Monitor oxygen sats; pt walked x 20 ft with FWW with oxygen in situ, upon assessment, sats were at 82%; returned to 90% within approx 45 seconds. Referral Physician: Jaison Reason for Referral: Evaluation/Treatment Medical History Pertinent Medical History: Atrial Fib (with RVR) Additional Medical History metabolic acidosis, hyponatremia, stage I lung CA Current History Pt admitted with COPD exac with metabolic acidosis; also found to have compression fx at T6, post kyphoplasty. Reviewed History: Yes Social History Home: Single Level Current Living Status: Alone (son lives in nearby town) Entry Into Home: Stairs Without Railing PT Steps Into Home: 2 Prior Prior Level of Function SCALE: Activities may be completed with or without assistive devices. 2-Fvjblnbxzg-kolyxbp completes the activity by him/herself with no assistance from a helper. 5-Set-up or Clean-up Assistance-helper sets up or cleans up; patient completes activity. [place] assists only prior to or following the activity. 4-Supervision or Touching Assistance-helper provides verbal cues and/or touching/steadying and/or contact guard assistance as patient completes activity. Assistance may be provided throughout the activity or intermittently. 3-Partial/Moderate Assistance-helper does LESS THAN HALF the effort. [place] lifts, holds or supports trunk or limbs, but provides less than half the effort. 2-Substantial/Maximal Assistance-helper does MORE THAN HALF the effort. [place] lifts or holds trunk or limbs and provides more than half the effort. 0-Ovigkqzad-pdflcz does ALL the effort. Patient does none of the effort to complete the activity. Or, the assistance of 2 or more helpers is required for the patient to complete the activity. If activity was not attempted, code reason: 7-Patient Refused. 9-Not Applicable-not attempted and the patient did not perform the activity before the current illness, exacerbation or injury. 10-Not Attempted due to Environmental Limitations-(lack of equipment, weather restraints, etc.). 88-Not Attempted due to Medical Conditions or Safety Concerns. Bed Mobility: 6 Transfers (B,C,W/C): 6 Gait: 6 Stairs: 6 Indoor Mobility (Ambulation): Independent Stairs: Independent Pt was indep at [facility]; she reports she was able to walk short community distances. PT Evaluation-Current Subjective Pt agreeable to PT. Pt expresses that her hemorrhoid is giving her alot of problem. Wants to make sure the Doctor is aware. Pain Numeric Pain Scale: 7 Location: Posterior Comment: hemerrhoid Pt/Family Goals Her goal is to return home alone as before Objective Patient Orientation: Person, Place, Time, Situation Attachments: Oxygen (3 l/min), Pruett Catheter While oxygen in situ, pt walked approx 20 ft with FWW and sats were found to be at 82%, she returned to 90% within 45 seconds of resting with deep breathing. ROM/Strength ROM Lower Extremities ROM is WFL B LE Strength Lower Extremities B LE strength is grossly 3/5 throughout. Integumentary/Posture Integumentary Refer to nursing notes for full assessment Bowel Incontinence: No Bladder Incontinence: Pruett Cath Posture normal and symmetrical Neuromuscular (Tone, Coordination, Reflexes) intact and functional Sensory Vision: Wears Glasses Hearing: Functional Hand Dominance: Right Sensation Right Lower Extremit: Intact Sensation Left Lower Extremity: Intact Transfers Roll Left to Right (QC): 3 Sit to Lying (QC): 3 Lying to Sitting/Side of Bed(Q: 3 Sit to Stand (QC): 2 (assist of 2 to come to a stand from standard height chair. ) Chair/Gfz-wp-Dqzyi Xfer(QC): 3 Car Transfer (QC): 88 (hemerrhoid pain limits at this time. ) toilet transfer scored a 2 as well. Gait Does the Patient Walk?: Yes Mode of Locomotion: Walk Distance (FIM): 1=up to 49 ft Walk 10 feet (QC): 3 (min assist at gait belt for safety; tends to lean forward and rest forearms on walker; relies heavily on walker) Walk 50 ft with 2 Turns(QC): 88 Walk 150 ft (QC): 88 Walking 10ft/uneven surface-QC: 3 Distance: 20 ft x 3 reps Gait Assistive Device: FWW Comments/Gait Description forward flexed and leans forearms on walker at times; slow with decreased foot clearance. Wheelchair Training Does the Pt Use a Wheelchair?: No Wheel 50 ft with 2 turns (QC): 9 Wheel 150 ft (QC): 9 Stairs 1 Step (curb) (QC): 88 (pt unable to safely perform or attempt) 4 Steps (QC): 88 12 Steps (QC): 88 Balance Sitting Static: Fair Sitting Dynamic: Fair Standing Static: Fair Standing Dynamic: Fair Picking up an Object (QC): 88 (contraindicated with recent kyphoplasty) Treatment Functional transfer and gait training; safety education and cues on sequencing and technique. Assessment/Needs Pt has had a complicated medical stay that began with COPD exacerbation and has resulted in a thoracic kyphoplasty. She has functional weakness, impaired balance and decreased functional activity tolerance, all of which impairs her abilty to mobilize or care for herself at home alone. She will benefit from skilled PT to addres her strengh and mobiltiy to allow her to return to a mod indep level at dc Rehab Potential: Good PT Raschel Knitting Machine Operator Goals Senior Care Goals PT Raschel Knitting Machine Operator Goals Time Frame: Aug 24, 2019 Sit to Lying (QC): 6 Lying-Sitting on Side/Bed(QC): 6 Sit to Stand (QC): 6 Roll Left to Right (QC): 6 Chair/Rdl-gh-Yopex Xfer(QC): 6 Car Transfer (QC): 6 Does the Patient Walk: Yes Walk 10 feet (QC): 6 Walk 10ft-Uneven Surface(QC): 6 Walk 50ft with 2 Turns (QC): 6 Walk 150 ft (QC): 6 Wheel 50 feet with 2 turns (QC: 9 1 Step (curb) (QC): 6 4 Steps (QC): 6 12 Steps (QC): 9 Picking up an Object (QC): 88 PT Plan Problem List Problem List: Activity Tolerance, Functional Strength, Safety, Balance, Gait, Transfer, Bed Mobility Treatment/Plan Treatment Plan: Continue Plan of Care Treatment Plan: Bed Mobility, Education, Functional Activity Sravani, Functional Strength, Group Therapy, Gait, Safety, Therapeutic Exercise, Transfers Frequency: Modified Program (IRF) (02/05) Estimated Hrs Per Day: Other (02/05) Patient and/or Family Agrees t: Yes Safety Risks/Education Patient Education: Transfer Techniques, Safety Issues Teaching Recipient: Patient Teaching Methods: Demonstration, Discussion Response to Teaching: Reinforcement Needed Discharge Recommendations Therapy Discharge Recommendati: Post Acute PT Time/GCodes Time In: 1145 Time Out: 1230 Total Billed Treatment Time: 45 Total Billed Treatment visit EVM 15 FA 30 CARINA TOVAR PT Aug 08, 2019 12:25
[2019-08-08] MEDS ORDERED: NS IV 1000 ML 1,000 ML IV PRN (13:00)
[2019-08-08] MEDS ORDERED: LORazepam INJ 2 MG/ML (ATIVAN) VIAL IVP PRN (13:00)
[2019-08-08] MEDS ORDERED: HYDROmorphone 2 MG/ML VIAL (DILAUDID) IVP PRN (13:00)
[2019-08-08] MEDS ORDERED: NITROGLYCERIN 0.4 MG SL TABS BTL 25'S SL PRN (13:00)
[2019-08-08] MEDS ORDERED: PREPARATION H OINTMENT 57 GR TUBE PR PRN (13:00)
--- NOTE | 2019-08-08 14:01 | NUR ---
Punch Machine Hand response to Hospice consult in order to offer follow up spiritual support and facilitate processing of recent changes and life decisions. The pt continues to demonstrate resilient spirit in the midst of challenges and grief. She expressed welcomeness to and gratitude for the variety of developer evangelist services she has received throughout her time at the hospital. She specifically mentioned my in-depth visit with her in the cancer center, and Rod Gibson's prayer with her before surgery.
[2019-08-08] MEDS: RT-ALBUTEROL/IPRATROPIUM 3 ML (DUONEB) VIAL INH SCH ×3 (14:35→22:17)
--- NOTE | 2019-08-08 14:39 | Physical Therapy Daily Note ---
PT Daily Note-Current Subjective Agrees to PT. Mentions hemorrhoids often throughout treatment. Mental Status Patient Orientation: Person, Place, Time, Situation Transfers SCALE: Activities may be completed with or without assistive devices. 5-Swrsxbzkxm-voxecug completes the activity by him/herself with no assistance from a helper. 5-Set-up or Clean-up Assistance-helper sets up or cleans up; patient completes activity. [place] assists only prior to or following the activity. 4-Supervision or Touching Assistance-helper provides verbal cues and/or touching/steadying and/or contact guard assistance as patient completes activity. Assistance may be provided throughout the activity or intermittently. 3-Partial/Moderate Assistance-helper does LESS THAN HALF the effort. [place] l ifts, holds or supports trunk or limbs, but provides less than half the effort. 2-Substantial/Maximal Assistance-helper does MORE THAN HALF the effort. [place] lifts or holds trunk or limbs and provides more than half the effort. 0-Fzpkzduxd-ybnqly does ALL the effort. Patient does none of the effort to complete the activity. Or, the assistance of 2 or more helpers is required for t he patient to complete the activity. If activity was not attempted, code reason: 7-Patient Refused. 9-Not Applicable-not attempted and the patient did not perform the activity before the current illness, exacerbation or injury. 10-Not Attempted due to Environmental Limitations-(lack of equipment, weather restraints, etc.). 88-Not Attempted due to Medical Conditions or Safety Concerns. Weight Bearing Right Lower Extremity: Right Weight Bearing/Tolerated Left Lower Extremity: Left Weight Bearing/Tolerated Treatments Co treat with OT; need for skill of 2 clinicians to effectively complete tasks safely with OT addressing use and placement of UE's and self care tasks as PT addresses gross transfers, gait and standing dynamic/static balance. Pt transferred off toilet, requiring max assist to come to a stand and as OT addressed roman care, PT addressed standing static balance with FWW; pt then walked to the chair. PT/OT addressed seating with optimal position and comfort, providing a cushion. Pt walked x 30 ft with FWW with close CGA and skilled cues for safety and posture. PT noting balance and safety, OT addressing standing upright and correct hand placement. Pt in recliner with feet elevated post treatment. O2 sats monitored after walking 30 ft and were found to be at 87%, increased to 88% quickly and took over a minute to get above 90%. Assessment Pt requires cues to stay on task and is easily distracted. Oxygen sats do tend to drop with activity, will continue to monitor. Oxygen was on during and post treatment. Limited functional activity tolerance and strength. PT Test And Balance Engineer Goals Long-Term Goals PT Long-Term Goals Time Frame: Aug 24, 2019 Sit to Lying (QC): 6 Lying-Sitting on Side/Bed(QC): 6 Sit to Stand (QC): 6 Roll Left to Right (QC): 6 Chair/Vdc-bn-Tmmwv Xfer(QC): 6 Car Transfer (QC): 6 Does the Patient Walk: Yes Walk 10 feet (QC): 6 Walk 10ft-Uneven Surface(QC): 6 Walk 50ft with 2 Turns (QC): 6 Walk 150 ft (QC): 6 Wheel 50 feet with 2 turns (QC: 9 1 Step (curb) (QC): 6 4 Steps (QC): 6 12 Steps (QC): 9 Picking up an Object (QC): 88 PT Plan Problem List Problem List: Activity Tolerance, Functional Strength, Safety, Balance, Gait, Transfer, Bed Mobility Treatment/Plan Treatment Plan: Continue Plan of Care Treatment Plan: Bed Mobility, Education, Functional Activity Sravani, Functional Strength, Group Therapy, Gait, Safety, Therapeutic Exercise, Transfers Frequency: Modified Program (IRF) (02/05) Estimated Hrs Per Day: Other (02/05) Patient and/or Family Agrees t: Yes Safety Risks/Education Patient Education: Transfer Techniques, Safety Issues Teaching Recipient: Patient Teaching Methods: Discussion Response to Teaching: Reinforcement Needed Time/GCodes Time In: 1345 Time Out: 1430 Total Billed Treatment Time: 45 Total Billed Treatment visit FA 30 NM 15 CARINA TOVAR PT Aug 08, 2019 14:39
--- NOTE | 2019-08-08 15:02 | Occupational Therapy Eval ---
OT Evaluation-General/PLF Medical Diagnosis Admission Date Aug 08, 2019 at 11:45 Medical Diagnosis: COPD exac; T6 comp fx Onset Date: Aug 08, 2019 Therapy Diagnosis Therapy Diagnosis: Weakness Height/Weight Height (Feet): 5 Height (Inches): 5.00 Weight (Pounds): 200 Weight (Ounces): 0.8 Precautions Precautions/Isolations: Standard Precautions Weight Bear Status Weight Bearing Restriction: Weight Bearing/Tolerated Back safety education Referral Physician: Jaison Referral Reason: Activity Tolerance, Self Care, Evaluation/Treatment, Strengthening/ROM Medical History Pertinent Medical History: Atrial Fib (with RVR) Additional Medical History Metabolic acidosis, lung CA Reviewed History: Yes Social History Home: Single Level Current Living Status: Alone (son lives in nearby town) Entry Into Home: Stairs Without Railing Steps Into Home: 2 ADL-Prior Level of Function SCALE: Activities may be completed with or without assistive devices. 8-Iibxeqokyg-dzauvbg completes the activity by him/herself with no assistance from a helper. 5-Set-up or Clean-up Assistance-helper sets up or cleans up; patient completes activity. [place] assists only prior to or following the activity. 4-Supervision or Touching Assistance-helper provides verbal cues and/or touching/steadying and/or contact guard assistance as patient completes activity. Assistance may be provided throughout the activity or intermittently. 3-Partial/Moderate Assistance-helper does LESS THAN HALF the effort. [place] lifts, holds or supports trunk or limbs, but provides less than half the effort. 2-Substantial/Maximal Assistance-helper does MORE THAN HALF the effort. [place] lifts or holds trunk or limbs and provides more than half the effort. 1-Vaynkswrb-vmrtaz does ALL the effort. Patient does none of the effort to complete the activity. Or, the assistance of 2 or more helpers is required for the patient to complete the activity. If activity was not attempted, code reason: 7-Patient Refused. 9-Not Applicable-not attempted and the patient did not perform the activity before the current illness, exacerbation or injury. 10-Not Attempted due to Environmental Limitations-(lack of equipment, weather restraints, etc.). 88-Not Attempted due to Medical Conditions or Safety Concerns. ADL PLOF Comments Pt. states that she was independent with daily tasks. Self Care: Independent Functional Cognition: Independent DME/Equipment: Shower DME/Equipment Comments Pt. uses walker Drive Self: Yes OT Current Status Subjective Pt. reports 15/10 pain. Reports that she has a hemorrhoid and that it is painful. Does not take pain medication for this but does use hemorrhoid cream. Appearance Pt. is up in chair speaking with son when OT enters room. Mental Status/Objective Patient Orientation: Person, Place, Time, Situation Current Hand Dominance: Right Upper Extremity ROM WFL Upper Extremity Strength NT due to recent back procedure. ADL-Treatment Eating (QC): 7 Oral Hygiene (QC): 7 Shower/Bathe Self (QC): 7 Upper Body Dressing (QC): 7 Lower Body Dressing (QC): 2 On/Off Footwear (QC): 2 Toileting Hygiene (QC): 2 Toilet Transfer (QC): 4 Other Treatments Pt. admitted with COPD exacerbation and recent kyphoplasty. Pt. is concerned regarding a hemorrhoid that is very painful, and is unable to focus on much else. Reports that she also has edema in bilateral LE, and is concerned about her urine color. OT provides cushion for chair for pressure relief. Pt. states that this helps a lot. OT elevates LE at end of treatment to assist with swelling, and encourages more water, as pt. does not like the taste of water. Pt. declines showering or dressing stating that its "too late in the day." Pt. is educated about importance of therapy and rehab. Ambulates to toilet with frequent rest breaks. Unable to cleanse self. Sats monitored throughout and decline to 88% with any activity. Raise to 93% with rest breaks. PT comes in to assist with co-treat, due to pt's fatigue level and need of assist for bathroom toileting. PT assisted with transfer and energy conservation techniques while OT initiated toileting task. Pt. requires increased time with all activities, and demonstrates some anxiety about what shoes to wear, what clothing to put on, etc... Pt. on 3 L 02 throughout treatment. Pt. up in recliner with LE elevated and cushion. All needs met. Education OT Patient Education: Correct positioning, Modified ADL techniques, Progress toward Goal/Update tx plan, Purpose of tx/functional activities, Reviewed precautions, Rehab process, Transfer techniques Teaching Recipient: Patient, Family Teaching Methods: Demonstration, Discussion Response to Teaching: Verbalize Understanding, Return Demonstration OT Short Term Goals Short Term Goals Time Frame: Aug 15, 2019 Eating(FIM): 5 Grooming(FIM): 5 Bathing(FIM): 3 Upper Body Dressing(FIM): 4 Lower Body Dressing(FIM): 3 Toileting(FIM): 3 Transfers (B,C,W/C) (FIM): 4 Toilet/Commode Transfer(FIM): 4 Shower Transfer(FIM): 4 Additional Short Term Goals: 1-Demonstrate ADL Tasks, 2-Verbalize Understanding, 3-ImproveStrength/Sravani 1=Demonstrate adherence to instructed precautions during ADL tasks. 2=Patient will verbalize/demonstrate understanding of assistive devices/mo difications for ADL. 3=Patient will improve strength/tolerance for activity to enable patient to perform ADL's. OT Certified Master Safe Technician Goals Long-Term Goals Time Frame: Aug 22, 2019 Eating (QC): 6 Oral Hygiene (QC): 6 Shower/Bathe Self (QC): 4 Upper Body Dressing (QC): 6 Lower Body Dressing (QC): 6 On/Off Footwear (QC): 6 Toileting Hygiene (QC): 6 Toilet/Commode Transfer (QC): 6 Additional Goals: 1-Demonstrate ADL Tasks, 2-Verbalize Understanding, 3- ImproveStrength/Sravani 1=Demonstrate adherence to instructed precautions during ADL tasks. 2=Patient will verbalize/demonstrate understanding of assistive devices/modifications for ADL. 3=Patient will improve strength/tolerance for activity to enable patient to perform ADL's. OT Education/Plan Problem List/Assessment Assessment: Decreased Activ Tolerance, Decreased UE Strength, Dependent Transfers, Impaired I ADL's, Impaired Self-Care Skills Discharge Recommendations Plan/Recommendations: Continue POC Therapy Discharge Recommendati: Post Acute OT Equpiment Recommendations-D/C: Bath Chair, Hip Kit Treatment Plan/Plan of Care Treatment,Training & Education: Yes Patient would benefit from OT for education, treatment and training to promote independence in ADL's, mobility, safety and/or upper extremity function for ADL's. Plan of Care: ADL Retraining, Functional Mobility, Group Exercise/Act as Ind, UE Funct Exercise/Act Treatment Duration: Aug 22, 2019 Frequency: At least 5 of 7 days/Wk (IRF) Estimated Hrs Per Day: 1.5 hours per day Agreement: Yes Rehab Potential: Fair Time/GCodes Start Time: 13:00 Stop Time: 14:30 Total Time Billed (hr/min): 90 Billed Treatment Time 1, EVH x 15minutes, ADL x 45minutes, FA x 30minutes SHAMIKA PANDYA OT Aug 08, 2019 15:02
[2019-08-08] MEDS: CEPHALEXIN 250 MG (KEFLEX) CAP PO SCH ×3 (15:08→21:20)
[2019-08-08] MEDS: ENOXAPARIN 40 MG/0.4 ML (LOVENOX) SYR SQ SCH (15:08)
[2019-08-08] MEDS: POLYETHYLENE GLYCOL 17 GM (MIRALAX) PACK PO SCH ×2 (15:13→21:18)
[2019-08-08] MEDS: oxyCODONE/APAP 10/325MG (PERCOCET 10) TABLET PO PRN (15:19)
[2019-08-08] MEDS: inSUlin ASPART (NovoLOG) 1 UNIT/0.01 ML (CHARGE PER UNIT) SC SCH ×2 (16:23→21:33)
--- NOTE | 2019-08-08 17:20 | NUR ---
Miguel Lopez in Pharmacy re: meds as ordered by Dr. Waddell for hemorrhoids for pt.
[2019-08-08] MEDS ORDERED: meTOprolol 5 MG/5 ML (LOPRESSOR) VIAL IV SCH (18:00)
[2019-08-08] MEDS: HYDROCORTISONE/PRAM 1% CREAM 30 GM TUBE TOP SCH (18:54)
--- NOTE | 2019-08-08 20:26 | NUR ---
Spoke eobni Lopez in Pharmacy that unable to obtain Cardizem or Lopressor from [facility]. He is going to tube up, & change times of doses.
[2019-08-08] MEDS: DILTIAZEM 30 MG (CARDIZEM) TAB PO SCH (20:44)
[2019-08-08] MEDS ORDERED: HYDROCORTISONE 2.5% CREAM (ANUSOL-HC) 30 GM TOP SCH (21:00)
--- NOTE | 2019-08-08 21:16 | NUR ---
PATIENT IS ADAMANT SHE IS NOT TAKING ANY PSYCH MEDS. EDUCATED ON FOLLOWING DR ORDERS BUT RIGHT TO REFUSE SUPPORTED . PATIENT VERBALIZED FRUSTRATION WITH CONTINUING TO BE OFFERED THESE MEDICATIONS FOR PSYCH. WILL PASS ON TO SHIFT NURSE TO INFORM MD OF PATIENT'S REQUEST. DENIES NEEDS OR C/O AT THIS TIME.
[2019-08-08] MEDS: ZIPRASIDONE 20 MG INJ (GEODON) VIAL IM SCH (21:18)
[2019-08-08] MEDS: risperiDONE 1 MG (RisperDAL) TAB PO SCH (21:19)
[2019-08-08] MEDS: SENNA W/DOCUSATE (SENOKOT S) TABLET PO SCH (21:20)
[2019-08-08] MEDS: meTOprolol 5 MG/5 ML (LOPRESSOR) VIAL IV SCH (21:20)
[2019-08-08] MEDS ORDERED: SODIUM CHLORIDE FLUSH 10 ML IV PRN (21:21)
[2019-08-08] MEDS: LIDOCAINE PATCH REMOVAL TP SCH (21:45)
[2019-08-09] VITALS (11 sets, daily range): BP systolic 98–140; BP diastolic 56–88
[2019-08-09] MEDS: DILTIAZEM 30 MG (CARDIZEM) TAB PO SCH ×3 (00:19→12:40)
[2019-08-09] MEDS: oxyCODONE/APAP 10/325MG (PERCOCET 10) TABLET PO PRN ×2 (01:13→15:12)
[2019-08-09] MEDS: RT-ALBUTEROL/IPRATROPIUM 3 ML (DUONEB) VIAL INH SCH ×6 (02:26→22:14)
[2019-08-09] MEDS: meTOprolol 5 MG/5 ML (LOPRESSOR) VIAL IV SCH ×3 (03:22→15:11)
--- NOTE | 2019-08-09 03:48 | NUR ---
PATIENT REMAINS UP IN CHAIR THROUGHOUT THE NIGHT. REFUSING TO GET INTO BED OR FOR RN TO ASSIST WITH POSITION CHANGES IN CHAIR. PATIENT REPOSITIONS SELF WITHOUT DIFFICULTY. REMINDED PATIENT IMPORTANCE AND ENCOURAGED TO MOVE EVERY HOUR. PATIENT HAS HAD BRIEF PERIODS OF SLEEP, REMAINING AWAKE MOST OF NIGHT. PATIENT STATES SHE IS ALWAYS AN "INSOMNIAC" DENIES NEEDS OR C/O AT THIS TIME. CONT TO MONITOR.
[2019-08-09] MEDS: inSUlin ASPART (NovoLOG) 1 UNIT/0.01 ML (CHARGE PER UNIT) SC SCH ×4 (06:41→21:33)
[2019-08-09] MEDS: KCL 20 MEQ TAB (K-DUR) PO SCH (06:42)
--- NOTE | 2019-08-09 08:13 | Cardiology Progress Note ---
Subjective Date Seen by Provider: Aug 09, 2019 Time Seen by Provider: 08:10 Subjective/Events-last exam Patient with PT, no new complaints. C/o generalized weakness. Objective-Cardiology Exam Last Set of Vital Signs Vital Signs 08/08/19 08/09/19 08/09/19 08/09/19 13:14 06:33 15:00 15:10 Temp 36.8 Pulse 109 Resp 20 B/P (MAP) 124/81 (95) Pulse Ox 95 O2 Delivery Nasal Cannula O2 Flow Rate 4.00 FiO2 32 Capillary Refill : Less Than 3 Seconds I&O Intake and Output 08/09/19 00:00 Intake Total 840 ml Output Total 950 ml Balance -110 ml Intake Oral 840 ml Output Urine Total 950 ml Daily Weight Change Unsure General: Alert, Oriented X3, Cooperative HEENT: Atraumatic, PERRLA Neck: Supple, No JVD, No Thyromegaly Lungs: Clear to Auscultation, Normal Air Movement Heart: No Murmurs, Other (irregularly irregular) Abdomen: Normal Bowel Sounds, Soft, No Tenderness, No Hepatosplenomegaly, No Masses Extremities: No Clubbing, No Cyanosis, Normal Pulses, No Tenderness/Swelling, Other (+1 edema BLE) Skin: No Rashes, No Breakdown, No Significant Lesion Neuro: Normal Gait, Normal Speech, Strength at 5/5 X4 Ext, Normal Tone, Sensation Intact Results Lab Laboratory Tests 08/09/19 09:41 A/P-Cardiology Admission Diagnosis PAF COPD Hx Lung CA T6 fx, s/p kyphoplasty. Assessment/Plan Paroxysmal atrial fibrillation/flutter with rapid response returned to sinus tachycardia, continue to monitor. Planning to start OAC once ok with Dr. Wallace. COPD with episode of exacerbation, improved, managed by primary care team Acute psychosis, change in mental status, improved. Managed by medical team. Back pain, T6 fracture, s/p kyphoplasty with Dr. Wallace on 08/05/19 Metabolic acidosis with acute respiratory failure, better at this time. Hx of Lung CA- followed by Dr. [place]. Acute renal failure- improved, continue to monitor. Ex tobaccoism Obesity Patient was seen and evaluated with [place], examination performed, management plan was discussed, agree with the current scribed note, I made few changes to t he note using Italic font Still having shortness of breath on exertion I am changing metoprolol IV to Toprol-XL 25 mg daily I am changing Cardizem to Cardizem CD 120 mg daily Continue to monitor blood pressure and tolerance and response Clinical Quality Measures DVT/VTE Risk/Contraindication: Risk Factor Score Per Nursin RFS Level Per Nursing on Admit: 4+=Very High CHEYANNE FLORENTINO Aug 09, 2019 08:13 CHAGO EISENBERG MD Aug 09, 2019 15:40
--- NOTE | 2019-08-09 08:20 | PM&R H&P / Post Admit Assess ---
History of Present Illness HPI/Chief Complaint CC: T6 compression fracture s/p kyphoplasty Hospital course from med-surg: Ms. Mccloud presented to ER in exacerbation of COPD and respiratory distress, has seen pulmonology. She had recently been diagnosed with lung cancer, is DNR do not intubate. During initial management of COPD exacerbation was found to be in Afib with RVR, heart rate of 170s, has seen cardiology. She also had been experiencing back pain, was found to have T6 compression fracture and underwent kyphoplasty. She continues to have back pain. Noted to have confusion and sundowning, also reports having insomnia. When seen today she reports feeling well overall, she reports her breathing is better now than it had been prior to admission. Her only complaint is of leg weakness. She still has a lopez catheter in due to concerns about her legs being too weak to make it to a toilet in time. She will be discharged to IRF. [facility] Hospital Course: Pt had a lengthy hospital course for two weeks. She was admitted for respiratory insufficiency placed on bi-PAP and pneumonia with history of lung cancer just diagnosed by Dr. Birmingham and Dr. De La Cruz. Compression fracture required kyphoplasty but she had multiple ICU transfers due to worsening respiratory status and encephalopathy so she was very weakened but breathing better at time of DC and back on baseline at 3 liters of O2. PT and OT orders placed and she was deemed stable for DC to inpatient rehab where she will begin her recovery and be able to undergo lung cancer treatment. Currently she is just finished up with her shower with occupational therapy. She is refusing the Geodon injections and she denies taking any major psych meds as an outpatient. Melatonin will be ordered to help with her chronic insomnia. Left leg improved with the Keflex for venous stasis dermatitis with cellulitis. Ravi wraps will be initiated for lower extremity edema considering volume overload from aggressive IV fluids upstairs on MedSurg caused fluid to go into soft tissue. We will discontinue the Lopez catheter. Anxiety will be managed also. Dr. Waddell is managing the hemorrhoid and we have consulted him and I appreciate his help. Her bowels are actually a little bit loose. Source: patient, RN/MD, old records Exam Limitations: no limitations Date Seen 08/09/19 Time Seen by a Provider: 08:15 Attending Physician Melly Hein DO PCP [facility] Referring Physician Date of Admission Aug 08, 2019 at 11:45 Home Medications & Allergies Home Medications Reviewed patient Home Medication Reconciliation performed by pharmacy medication reconciliations registered respiratory technician and/or nursing. Patients Allergies have been reviewed. Allergies Allergies Coded Allergies levofloxacin (Verified Allergy, Severe, TACHYCARDIA, 11/12/18) Penicillins (Verified Allergy, Unknown, FAMILY ALLERGY, 11/12/18) Uncoded Allergies SURGICAL STEEL ( Allergy, Intermediate, RASH, 05/10/18) Past Vnxmjyu-Enzerr-Xtlvik Hx Past Med/Social Hx: Reviewed Nursing Past Med/Soc Hx, Reviewed and Corrections made Patient Social History Marrital Status: single Employed/Student: retired Alcohol Use: Occasionally Uses Recreational Drug Use: No Smoking Status: Former Smoker Former Smoker, Quit: Oct 19, 1992 Type Used: Cigarettes Physical Abuse Screen: No Sexual Abuse: No Recent Foreign Travel: No Recent Hopitalizations: Yes Immunizations Up To Date Tetanus Booster (TDap): Unknown Date of Pneumonia Vaccine: Jul 26, 2018 Date of Influenza Vaccine: Jul 26, 2018 Seasonal Allergies Seasonal Allergies: Yes Past Medical History Surgeries: Bladder Surgery, Gallbladder, Hysterectomy Respiratory: COPD Currently Using CPAP: No Currently Using BIPAP: No Cardiac: Chronic Edema/Swelling, Hypertension 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: No Sexually Transmitted Disease: No HIV/AIDS: No Female 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 Disorders: Denies Hysterectomy, Menopausal Genitourinary: Bladder Infection, Renal Failure Gastrointestinal: Hemorrhoids Musculoskeletal: Osteoporosis, Arthritis, Chronic Back Pain, Fractures Endocrine: Diabetes, Insulin dep Loss of Vision: Bilateral Hearing Impairment: Denies Cancer: Lung Did You Recieve Any Treatments: Yes What Type of Treatment Did You: Chemotherapy, Radiation Cancer: Immunotherapy Psychosocial: Anxiety History of Blood Disorders: No Adverse Reaction to Blood Nolasco: No Family History No Pertinent Family Hx Review of Systems Constitutional: see HPI, malaise, weakness EENTM: no symptoms reported Respiratory: dyspnea on exertion Cardiovascular: no symptoms reported Gastrointestinal: abdominal pain Genitourinary: decreased output Musculoskeletal: back pain, joint pain Skin: no symptoms reported Psychiatric/Neurological: Anxiety, Depressed, Emotional Problems All Other Systems Reviewed Negative Unless Noted: Yes Physical Exam Exam Vital Signs Vital Signs Date Time Temp Pulse Resp B/P (MAP) Pulse Ox O2 Delivery O2 Flow Rate FiO2 08/09/19 10:05 Nasal Cannula 3.00 08/09/19 08:00 76 137/88 (104) 08/09/19 06:33 36.8 20 94 08/08/19 13:14 32 Capillary Refill : Less Than 3 Seconds General Appearance: No Apparent Distress, WD/WN, Chronically ill, Obese HEENT: PERRL/EOMI, Normal ENT Inspection, Pharynx Normal, Moist Mucous Membranes Neck: Full Range of Motion, Normal Inspection, Non Tender, Supple Respiratory: Chest Non Tender, Lungs Clear, No Accessory Muscle Use, No Respiratory Distress, Decreased Breath Sounds Cardiovascular: Regular Rate, Rhythm, No Edema, No Gallop, No JVD, No Murmur Gastrointestinal: Normal Bowel Sounds, No Organomegaly, No Pulsatile Mass, Non Tender, Soft Back: Normal Inspection, No CVA Tenderness, No Vertebral Tenderness Extremity: Normal Capillary Refill, Normal Inspection, Normal Range of Motion, Non Tender, No Calf Tenderness, Pedal Edema Neurologic/Psychiatric: Alert, Oriented x3, No Motor/Sensory Deficits (except generalized all extremities 3/5), Normal Mood/Affect, jig and fixture repairer II-XII Norm as Tested Skin: Normal Color, Warm/Dry, Rash (left leg with mild erythema from cellulitis) Lymphatic: No Adenopathy Results Results/Procedures Labs Laboratory Tests 08/09/19 09:41 Patient resulted labs reviewed. Assessment/Plan Assessment and Plan Assess & Plan/Chief Complaint Assessment: T6 compression fracture pathological either osteoporosis or lung cancer status post kyphoplasty uncomplicated Acute on chronic respiratory failure requiring 14 days of MedSurg hospital course COPD Former smoker History of acute renal failure Severe anxiety Emotional mental problems Anemia Hypertension [id number] Severe debility Lopez catheter in place Severe weakness Left lower extremity cellulitis placed on Keflex Severe lower extremity edema ordered Ravi wraps Plan: Restart all meds for MedSurg Nebs Oxygen DC Lopez today Inpatient rehabilitation protocol Complete Keflex Wide Ravi wraps (1) Compression fracture of T6 vertebra Status: Acute (2) COPD (chronic obstructive pulmonary disease) Status: Chronic (3) Constipation Status: Acute (4) Lung mass (5) Lung cancer Status: Chronic (6) Altered mental status Status: Resolved Resolution Date/Time: 08/05/19 @ 16:39 (7) Leg edema Status: Acute (8) Acidosis Status: Acute (9) Acute on chronic respiratory failure Status: Acute (10) Acute renal failure Status: Acute (11) Anxiety Status: Acute (12) Elevated troponin Status: Acute (13) Elevation of cardiac enzymes Status: Acute (14) Sinus tachycardia Status: Acute (15) UTI (urinary tract infection) Status: Acute (16) Uncontrolled hypertension Status: Acute (17) Edema (18) Left leg cellulitis (19) Venous stasis dermatitis (20) Insomnia Post Admission Physician Asses Date seen by provider: Aug 09, 2019 Time seen by provider: 08:15 Admisison Dx: (1) Compression fracture of T6 vertebra Status: Acute (2) Lung mass (3) COPD (chronic obstructive pulmonary disease) Status: Chronic (4) Lung cancer Status: Chronic (5) Constipation Status: Acute (6) Leg edema Status: Acute (7) Altered mental status Status: Resolved (8) Acidosis Status: Acute (9) Acute on chronic respiratory failure Status: Acute (10) Acute renal failure Status: Acute (11) Anxiety Status: Acute (12) Sinus tachycardia Status: Acute (13) UTI (urinary tract infection) Status: Acute (14) Uncontrolled hypertension Status: Acute The preadmission screen agrees with the post admission assessment that the patient is a good candidate for inpatient rehabilitation. The patient will have a comprehensive program of inpatient rehabilitation with a goal of maximizing level of functional independence prior to discharge home with family. The patient will have PT/OT ninety minutes per day, each discipline, five days a week for gait, strengthening, conditioning, balance, ADLs, any patient/family/caregiver training as necessary. Speech therapy to do cognitive assessment and treat as indicated. Rehabilitation nursing to assist with bowel, bladder, skin, wound care, medication administration, pain management. Enterprise Application Analyst to assist with discharge planning, community reentry. SCD's for DVT prophylaxis. She appears to be well motivated to participate in three hours of therapy a day. She should be able to tolerate three hours of therapy a day from a medical standpoint. She should benefit from the three hours of therapy a day. She has a reasonable discharge plan, reasonable discharge rehabilitation goals and a supportive family. She has various comorbidities that need to be closely monitored with medications and treatments adjusted on a daily basis as needed. These include: See list Barriers to discharge for this patient who had been independent prior to this are for her to be modified independent to supervision for ADLs and mobility skills prior to discharge home with family, so as to lessen the burden of the caregivers. Risks for this patient include: 1. Fall 2. Fracture 3. DVT 4. Pulmonary embolism 5. Wound infection 6. Skin breakdown 7. Contractures 8. Poorly controlled pain 9. Urinary retention 10. UTI 11. Respiratory infection 12. Aspiration Estimated Length of Stay: 14 days Prognosis: Rehab prognosis appears good for goal of discharge home with family modified independent to supervision for ADLs and mobility skills. General: Alert, Oriented X3, Cooperative HEENT: Atraumatic, PERRLA Neck: Supple, No JVD, No Thyromegaly Lungs: Clear to Auscultation, Normal Air Movement Heart: No Murmurs, Other (irregularly irregular) Abdomen: Normal Bowel Sounds, Soft, No Tenderness, No Hepatosplenomegaly, No Masses Extremities: No Clubbing, No Cyanosis, Normal Pulses, No Tenderness/Swelling, Other (+1 edema BLE) Skin: No Rashes, No Breakdown, No Significant Lesion Neuro: Normal Gait, Normal Speech, Strength at 5/5 X4 Ext, Normal Tone, Sensation Intact MELLY HEIN DO Aug 09, 2019 08:20
[2019-08-09] MEDS: ZIPRASIDONE 20 MG INJ (GEODON) VIAL IM SCH (08:32)
[2019-08-09] MEDS: risperiDONE 1 MG (RisperDAL) TAB PO SCH (08:32)
[2019-08-09] MEDS: POLYETHYLENE GLYCOL 17 GM (MIRALAX) PACK PO SCH ×3 (08:32→21:28)
[2019-08-09] MEDS: SENNA W/DOCUSATE (SENOKOT S) TABLET PO SCH ×2 (08:33→21:30)
--- NOTE | 2019-08-09 08:52 | NUR ---
REVIEWED MED REC IT WAS REPORTED UPON TO ADMISSION TO ICU. NO CHANGES WERE MADE WHEN THE PATIENT DISCHARGED TO REHAB.
--- NOTE | 2019-08-09 09:00 | NUR ---
DR. HEIN TO FLOOR. INFORMED THAT PATIENT HAS BEEN REFUSING PSYCH MEDS. ORDERS TO CHANGE TO PRN. ALSO, ORDERS TO DC ASTORGA CATHETER AND CONSULT DR. CRUZ. MARLON WRAPS TO BILATERAL LOWER EXTREMITIES.
--- NOTE | 2019-08-09 09:00 | Consultation - Surgery ---
ELEANOR REDD,MED STUDENT 08/09/19 0900: History of Present Illness History of Present Illness Patient Consulted On(oliverio/time) 08/08/19 1600 Date Seen by Provider: Aug 08, 2019 Time Seen by Provider: 16:00 History of Present Illness Consultation requested for hemorrhoids. HPI per physiatry: Hospital course from med-surg: Ms. Mccloud presented to ER in exacerbation of COPD and respiratory distress, has seen pulmonology. She had recently been diagnosed with lung cancer, is DNR do not intubate. During initial management of COPD exacerbation was found to be in Afib with RVR, heart rate of 170s, has seen cardiology. She also had been experiencing back pain, was found to have T6 compression fracture and underwent kyphoplasty. She continues to have back pain. Noted to have confusion and sundowning, also reports having insomnia. When seen today she reports feeling well overall, she reports her breathing is better now than it had been prior to admission. Her only complaint is of leg weakness. She still has a lopez ca theter in due to concerns about her legs being too weak to make it to a toilet in time. She will be discharged to IRF. [facility] Hospital Course: Pt had a lengthy hospital course for two weeks. She was admitted for respiratory insufficiency placed on bi-PAP and pneumonia with history of lung cancer just diagnosed by Dr. Birmingham and Dr. De La Cruz. Compression fracture required kyphoplasty but she had multiple ICU transfers due to worsening respiratory status and encephalopathy so she was very weakened but breathing better at time of DC and back on baseline at 3 liters of O2. PT and OT orders placed and she was deemed stable for DC to inpatient rehab where she will begin her recovery and be able to undergo lung cancer treatment. HPI: Ms. Mccloud complains of hemorrhoids and associated constipation. She complains of pain with bowel movements. She is using a topical ointment but this only provides minimal relief. Allergies and Home Medications Allergies Coded Allergies: levofloxacin (Verified Allergy, Severe, TACHYCARDIA, 11/12/18) Penicillins (Verified Allergy, Unknown, FAMILY ALLERGY, 11/12/18) Uncoded Allergies: SURGICAL STEEL (Allergy, Intermediate, RASH, 05/10/18) Home Medications Albuterol Sulfate 18 Gm Hfa.aer.ad, 2 PUFF INH Q6H PRN for SHORTNESS OF BREATH, (Reported) Cetirizine HCl 10 Mg Tablet, 10 MG PO DAILY, (Reported) Cholecalciferol (Vitamin D3) 2,000 Unit Capsule, 2,000 UNIT PO DAILY, (Reported) Diltiazem HCl 240 Mg Cap.er.24h, 240 MG PO DAILY, (Reported) Fluticasone Propionate 16 Gm Carey.susp, 1 SPRAY NS DAILY, (Reported) Lutein 10 Mg Tablet, 10 MG PO DAILY, (Reported) Metformin HCl 500 Mg Tablet, 500 MG PO BID, (Reported) Methimazole 5 Mg Tablet, 5 MG PO DAILY, (Reported) Metoprolol Tartrate 25 Mg Tablet, 25 MG PO BID, (Reported) Mometasone/Formoterol 13 Gm Hfa.aer.ad, 2 PUFF IH BID, (Reported) Montelukast Sodium 10 Mg Tablet, 10 MG PO DAILY, (Reported) Multivitamin 1 Each Tablet, 1 TAB PO DAILY, (Reported) Tiotropium Usk 1 Inh Aerp, 1 CAP IH DAILY, (Reported) Patient Home Medication List Home Medication List Reviewed: Yes Past Fsyloaq-Eminro-Hillta Hx Patient Social History Alcohol Use: Occasionally Uses Recreational Drug Use: No Smoking Status: Former Smoker Former Smoker, Quit: Oct 19, 1992 Type Used: Cigarettes Recent Foreign Travel: No Recent Hopitalizations: Yes Physical Abuse Screen: No Sexual Abuse: No Immunizations Up To Date Tetanus Booster (TDap): Unknown Date of Pneumonia Vaccine: Jul 26, 2018 Date of Influenza Vaccine: Jul 26, 2018 Seasonal Allergies Seasonal Allergies: Yes Surgeries History of Surgeries: Yes Surgeries: Bladder Surgery, Gallbladder, Hysterectomy Respiratory History of Respiratory Disorde: Yes (RT LUNG MASS/LUNG CANCER, O2 6L) Respiratory Disorders: Pneumonia, Chronic Bronchitis, COPD Cardiovascular History of Cardiac Disorders: Yes Cardiac Disorders: Chronic Edema/Swelling, Hypertension Neurological History of Neurological Disord: No 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 System Hx 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 Disorders: No Sexually Transmitted Disease: No HIV/AIDS: No Female 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 Disorders: Denies 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 History: Hysterectomy, Menopausal Genitourinary History of Genitourinary Disor: Yes Genitourinary Disorders: Bladder Infection, Renal Failure Gastrointestinal History of Gastrointestinal Di: Yes Gastrointestinal Disorders: Hemorrhoids Musculoskeletal History of Musculoskeletal Dis: Yes Musculoskeletal Disorders: Osteoporosis, Arthritis, Chronic Back Pain, Fractures Endocrine History of Endocrine Disorders: Yes (THYROID ISSUES--ON METHIMAZOLE) Endocrine Disorders: Diabetes, Insulin dep HEENT History of HEENT Disorders: Yes (GLASSES) Loss of Vision: Bilateral Hearing Impairment: Denies Cancer History of Cancer: Yes Cancer: Lung Psychosocial History of Psychiatric Problem: Yes (RELATED TO MEDICAL ISSUES) Behavioral Health Disorders: Anxiety Integumentary History of Skin or Integumenta: Yes (cellulitus) Blood Transfusions History of Blood Disorders: No Adverse Reaction to a Blood Tr: No Family Medical History Significant Family History: No Pertinent Family Hx Physical Exam-General Problems Physical Exam Vital Signs Vital Signs - First Documented 08/08/19 08/08/19 12:07 13:14 Temp 36.8 Pulse 115 Resp 22 B/P (MAP) 135/71 (92) Pulse Ox 93 O2 Delivery Nasal Cannula O2 Flow Rate 2.00 FiO2 32 Capillary Refill : Less Than 3 Seconds General Appearance: WD/WN, no apparent distress Rectal: hemorrhoids, tenderness Data Review Labs Laboratory Tests 08/08/19 16:17: Glucometer 228H 08/08/19 21:32: Glucometer 171H 08/09/19 06:30: Glucometer 158H Assessment/Plan Assessment/Plan Assessment/Plan External hemorrhoids Possible internal hemorrhoids Advised her that no surgical intervention is indicated at this time. The cream she is using does not contain lidocaine, which may be helpful for symptom relief Clinical Quality Measures DVT/VTE Risk/Contraindication: Risk Factor Score Per Nursin RFS Level Per Nursing on Admit: 4+=Very High LEXISSNEHA REDDY Toni DO 08/10/19 0036: History of Present Illness History of Present Illness Time Seen by Provider: 13:20 History of Present Illness Pt states her hemorrhoids bulge out when she has to strain for BM. She is rating the pain as "12 out of 10". She describes a sharp, burning stabbing pain. She states she'll do anything to make them better. Allergies and Home Medications Allergies Coded Allergies: levofloxacin (Verified Allergy, Severe, TACHYCARDIA, 11/12/18) Penicillins (Verified Allergy, Unknown, FAMILY ALLERGY, 11/12/18) Uncoded Allergies: SURGICAL STEEL (Allergy, Intermediate, RASH, 05/10/18) Home Medications Albuterol Sulfate 18 Gm Hfa.aer.ad, 2 PUFF INH Q6H PRN for SHORTNESS OF BREATH, (Reported) Cetirizine HCl 10 Mg Tablet, 10 MG PO DAILY, (Reported) Cholecalciferol (Vitamin D3) 2,000 Unit Capsule, 2,000 UNIT PO DAILY, (Reported) Diltiazem HCl 240 Mg Cap.er.24h, 240 MG PO DAILY, (Reported) Fluticasone Propionate 16 Gm Carey.susp, 1 SPRAY NS DAILY, (Reported) Lutein 10 Mg Tablet, 10 MG PO DAILY, (Reported) Metformin HCl 500 Mg Tablet, 500 MG PO BID, (Reported) Methimazole 5 Mg Tablet, 5 MG PO DAILY, (Reported) Metoprolol Tartrate 25 Mg Tablet, 25 MG PO BID, (Reported) Mometasone/Formoterol 13 Gm Hfa.aer.ad, 2 PUFF IH BID, (Reported) Montelukast Sodium 10 Mg Tablet, 10 MG PO DAILY, (Reported) Multivitamin 1 Each Tablet, 1 TAB PO DAILY, (Reported) Tiotropium Usk 1 Inh Aerp, 1 CAP IH DAILY, (Reported) Past Wkelkxf-Ifrdbd-Mptwsb Hx Family Medical History Significant Family History: Other Conditions/Hx (Son has GERD and had Gallbladder troubles, also has Anxiety) Review of Systems-General Constitutional: No chills, No diaphoresis; weakness EENTM: No blurred vision, No double vision, No mouth pain, No mouth swelling Respiratory: cough, dyspnea on exertion; No hemoptysis; short of breath Cardiovascular: No chest pain, No edema, No palpitations Gastrointestinal: No abdominal pain; constipation; No hematemesis, No jaundice, No nausea, No vomiting Genitourinary: No dysuria, No frequency, No hematuria Musculoskeletal: back pain, joint pain, joint swelling, muscle pain, muscle stiffness Skin: No change in color, No change in hair/nails Psychiatric/Neurological: Anxiety; Denies Seizure, Denies Tremors Other pt denies hx of abnormal bleeding or bruising Physical Exam-General Problems Physical Exam General Appearance: mild distress, obese Eyes: Bilateral Eye PERRL, Bilateral Eye EOMI HEENT: pharynx normal; No scleral icterus (R), No scleral icterus (L) Neck: supple; No thyromegaly Respiratory: accessory muscle use, crackles, wheezing, other (very distant breath sounds) Cardiovascular: regular rate, rhythm, no murmur Gastrointestinal: non tender, soft, no organomegaly Rectal: hemorrhoids (exam done with nurse in the room, she has some excess external skin from external hemorrhoids, no internal hemorrhoids pushing out at time of exam) Extremities: no pedal edema, no calf tenderness, normal capillary refill Neurologic/Psychiatric: 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 I would recommend she wait until she gets out and then have outpt HET procedure. This is done above the dentate line, where there are no pain fibers. In the meantime I have ordered lidocaine cream for the area and steroid suppositories to try and decrease the inflammation. She is willing to try this and wants to get the hemorrhoids fixed as soon as she is discharged from rehab. Supervisory-Addendum Brief Verification & Attestation Participated in pt care: history, MDM, physical Personally performed: exam, history, MDM Care discussed with: Medical Student Procedures: n/a Verification and Attestation of Medical Student E/M Service A medical student performed and documented this service in my presence. I reviewed and verified all information documented by the medical student and made modifications to such information, when appropriate. I personally performed the physical exam and medical decision making. Sneha Bolivar, Aug 10, 2019,00:39 ELEANOR REDD,MED STUDENT Aug 09, 2019 09:00 SNEHA BOLIVAR DO Aug 10, 2019 00:36
[2019-08-09] MEDS: FUROSEMIDE 40 MG (LASIX) TAB PO SCH (09:07)
[2019-08-09] MEDS: LIDOCAINE 4% (SALONPAS) PATCH TOP SCH (09:08)
[2019-08-09] MEDS: CEPHALEXIN 250 MG (KEFLEX) CAP PO SCH ×4 (09:08→21:28)
[2019-08-09] MEDS: HYDROCORTISONE/PRAM 1% CREAM 30 GM TUBE TOP SCH ×2 (09:23→21:33)
--- NOTE | 2019-08-09 09:43 | NUR ---
DR. CRUZ TO FLOOR. NOTIFIED OF CONSULT.
[2019-08-09 09:49] LABS: BASOPHILS % (AUTO) 1 % (0-10); EOSINOPHILS % (AUTO) 0 % (0-10); HEMATOCRIT 30 % (35-52); HEMOGLOBIN 9.4 G/DL (11.5-16.0); LYMPHOCYTES # (AUTO) 0.2 X 10^3 (1.0-4.0); LYMPHOCYTES % (AUTO) 4 % (12-44); MEAN CORPUSCULAR HEMOGLOBIN 30 PG (25-34); MEAN CORPUSCULAR HGB CONC 31 G/DL (32-36); MEAN CORPUSCULAR VOLUME 98 FL (80-99); MEAN PLATELET VOLUME 9.4 FL (7.4-10.4); MONOCYTES # (AUTO) 0.5 X 10^3 (0.0-1.0); MONOCYTES % (AUTO) 8 % (0-12); NEUTROPHILS # (AUTO) 5.1 X 10^3 (1.8-7.8); NEUTROPHILS % (AUTO) 87 % (42-75); PLATELET COUNT 275 10^3/uL (130-400); RED CELL DISTRIBUTION WIDTH 17.6 % (10.0-14.5); WHITE BLOOD COUNT 5.8 10^3/uL (4.3-11.0)
--- NOTE | 2019-08-09 09:55 | Occupational Ther Daily Note ---
OT Current Status-Daily Note Subjective Pt alert, sitting in recliner. Pt agrees to therapy. No c/o pain initially then during session c/o pain on R side of back, reported to nrsg. Mental Status/Objective Patient Orientation: Person, Place, Time, Situation Attachments: Central Line, Pruett Catheter, Oxygen (3L) ADL-Treatment Pt agrees to shower. Declines to don regular clothing due to not wanting to get clothes soiled with catheter. Monitored O2 sat levels throughout session, would go to 85%-88% then recovery break for a few minutes to return to 90% and above. During shower, increased O2 to 4L, reported to nrsg. Pt takes increased time to complete all ADLs tasks due to decreased activity tolerance and decreased mobility. Pt ambulated with CGA to toilet using FWW and transferred with CGA using grabbars and FWW. Assist to manipulate clothing, pt attempted to cleanse self sitting on toilet then assist for thorough cleansing after BM. Pt transferred to shower using FWW, grabbars, and shower bench with CGA. Pt completed bathing with SBA assist to cleanse feet due to contraindications of kyphoplasty. Pt given lower body bathing and dressing equipment. Assist to don/doff briefs and socks. After therapy, pt sitting in w/c, care transferred to PT. All needs met. Therapy Code Descriptions/Definitions Functional [place] Measure: 0=Not Assessed/NA 4=Minimal Assistance 1=Total Assistance 5=Supervision or Setup 2=Maximal Assistance 6=Modified [place] 3=Moderate Assistance 7=Complete IndependenceSCALE: Activities may be completed with or without assistive devices. 3-Egbeblfeyg-vompvwk completes the activity by him/herself with no assistance from a helper. 5-Set-up or Clean-up Assistance-helper sets up or cleans up; patient completes activity. [place] assists only prior to or following the activity. 4-Supervision or Touching Assistance-helper provides verbal cues and/or touching/steadying and/or contact guard assistance as patient completes activity. Assistance may be provided throughout the activity or intermittently. 3-Partial/Moderate Assistance-helper does LESS THAN HALF the effort. [place] lifts, holds or supports trunk or limbs, but provides less than half the effort. 2-Substantial/Maximal Assistance-helper does MORE THAN HALF the effort. [place] lifts or holds trunk or limbs and provides more than half the effort. 5-Fltjmwron-udswyd does ALL the effort. Patient does none of the effort to complete the activity. Or, the assistance of 2 or more helpers is required for the patient to complete the activity. If activity was not attempted, code reason: 7-Patient Refused. 9-Not Applicable-not attempted and the patient did not perform the activity before the current illness, exacerbation or injury. 10-Not Attempted due to Environmental Limitations-(lack of equipment, weather restraints, etc.). 88-Not Attempted due to Medical Conditions or Safety Concerns. Eating (QC): 6 (Pt able to complete own set up and uses regular utensils to eat.) Oral Hygiene (QC): 7 Bathing Location: L Arm, R Arm, L Upper Leg, R Upper Leg, Chest, Abdomen, Buttocks (leaned side to side), Perineal Area Shower/Bathe Self (QC): 3 Upper Body Dressing (QC): 7 Lower Body Dressing (QC): 2 (Footwear (QC) 2) Toileting Hygiene (QC): 2 Toilet Transfer (QC): 2 OT Short Term Goals Short Term Goals Time Frame: Aug 15, 2019 Eating(FIM): 5 Grooming(FIM): 5 Bathing(FIM): 3 Upper Body Dressing(FIM): 4 Lower Body Dressing(FIM): 3 Toileting(FIM): 3 Transfers (B,C,W/C) (FIM): 4 Toilet/Commode Transfer(FIM): 4 Shower Transfer(FIM): 4 Additional Short Term Goals: 1-Demonstrate ADL Tasks, 2-Verbalize Understanding, 3-ImproveStrength/Sravani 1=Demonstrate adherence to instructed precautions during ADL tasks. 2=Patient will verbalize/demonstrate understanding of assistive devices/modifications for ADL. 3=Patient will improve strength/tolerance for activity to enable patient to perform ADL's. OT Adventure Challenge Instructor Goals [facility] Goals Time Frame: Aug 22, 2019 Eating (QC): 6 Oral Hygiene (QC): 6 Shower/Bathe Self (QC): 4 Upper Body Dressing (QC): 6 Lower Body Dressing (QC): 6 On/Off Footwear (QC): 6 Toileting Hygiene (QC): 6 Toilet/Commode Transfer (QC): 6 Additional Goals: 1-Demonstrate ADL Tasks, 2-Verbalize Understanding, 3- ImproveStrength/Sravani 1=Demonstrate adherence to instructed precautions during ADL tasks. 2=Patient will verbalize/demonstrate understanding of assistive devices/modifications for ADL. 3=Patient will improve strength/tolerance for activity to enable patient to perform ADL's. OT Education/Plan Problem List/Assessment Assessment: Decreased Activ Tolerance, Edema (B LE), Impaired Self-Care Skills Discharge Recommendations Plan/Recommendations: Continue POC Treatment Plan/Plan of Care Patient would benefit from OT for education, treatment and training to promote independence in ADL's, mobility, safety and/or upper extremity function for ADL's. Plan of Care: ADL Retraining, Functional Mobility, Group Exercise/Act as Ind, UE Funct Exercise/Act Treatment Duration: Aug 22, 2019 Frequency: At least 5 of 7 days/Wk (IRF) Estimated Hrs Per Day: 1.5 hours per day Agreement: Yes Rehab Potential: Fair Time/GCodes Start Time: 07:00 Stop Time: 09:00 Total Time Billed (hr/min): 120 Billed Treatment Time 1 visit-ADL 8 (120 min) CARINA SCHMIDT Aug 09, 2019 09:55
[2019-08-09] MEDS ORDERED: ZIPRASIDONE 20 MG INJ (GEODON) VIAL IM PRN (10:00)
[2019-08-09] MEDS ORDERED: risperiDONE 1 MG (RisperDAL) TAB PO PRN (10:00)
--- NOTE | 2019-08-09 10:08 | Physical Therapy Daily Note ---
PT Daily Note-Current Subjective Pt. states she is so weak in her LEs when in stance and gait attempts. Pt. c/o she is SOA at times. Pain Numeric Pain Scale: 4 Location: Medial Location Body Site: Back Pain Description: Ache Mental Status Patient Orientation: Normal For Age Attachments: Oxygen (4L) Transfers SCALE: Activities may be completed with or without assistive devices. 2-Byglrczuig-whlbytm completes the activity by him/herself with no assistance from a helper. 5-Set-up or Clean-up Assistance-helper sets up or cleans up; patient completes activity. [place] assists only prior to or following the activity. 4-Supervision or Touching Assistance-helper provides verbal cues and/or touching/steadying and/or contact guard assistance as patient completes activity. Assistance may be provided throughout the activity or intermittently. 3-Partial/Moderate Assistance-helper does LESS THAN HALF the effort. [place] lifts, holds or supports trunk or limbs, but provides less than half the effort. 2-Substantial/Maximal Assistance-helper does MORE THAN HALF the effort. [place] lifts or holds trunk or limbs and provides more than half the effort. 3-Nzlelizus-xsktkj does ALL the effort. Patient does none of the effort to complete the activity. Or, the assistance of 2 or more helpers is required for the patient to complete the activity. If activity was not attempted, code reason: 7-Patient Refused. 9-Not Applicable-not attempted and the patient did not perform the activity before the current illness, exacerbation or injury. 10-Not Attempted due to Environmental Limitations-(lack of equipment, weather restraints, etc.). 88-Not Attempted due to Medical Conditions or Safety Concerns. Transfers (B, C, W/C): 4 Sit to Stand (QC): 4 sit to stands and trials with differing seat heights . Pt. sit to stand with instruction to use UEs for pushing up etc. Weight Bearing Right Lower Extremity: Right Weight Bearing/Tolerated Left Lower Extremity: Left Weight Bearing/Tolerated Gait Training Does the Patient Walk?: Yes Gait: 4 Walk 10 feet (QC): 4 Walk 50 ft with 2 Turns(QC): 88 Walk 150 ft (QC): 88 Walking 10ft/uneven surface-QC: 88 Gait Persons Needed: 1 Gait Assistive Device: FWW CGA and assist for O2 , pt. SOB quickly with sats 87%, 88%, 89% then 95% with sit to stands and gait Wheelchair Training Does the Pt Use a Wheelchair?: Yes Wheelchair Distance: 1=143-16 ft Wheel 50 ft with 2 turns (QC): 4 Wheel 150 ft (QC): 88 Type of Wheelchair: Manual skilled instruction for turns, brakes, sit to stand, propelling etc. Exercises Seated Therapy Exercises: Ankle pumps, Sit to stand, Long arc quads, Hip flexion, Hip abd/add Seated Reps: 12 (x2) Assessment Current Status: Good Progress pt. becomes SOB very quickly and needs frequent rest breaks PT Senior Living Goals Home Paraprofessional Goals PT Senior Living Goals Time Frame: Aug 24, 2019 Sit to Lying (QC): 6 Lying-Sitting on Side/Bed(QC): 6 Sit to Stand (QC): 6 Roll Left to Right (QC): 6 Chair/Rxi-yf-Fwtca Xfer(QC): 6 Car Transfer (QC): 6 Does the Patient Walk: Yes Walk 10 feet (QC): 6 Walk 10ft-Uneven Surface(QC): 6 Walk 50ft with 2 Turns (QC): 6 Walk 150 ft (QC): 6 Wheel 50 feet with 2 turns (QC: 9 1 Step (curb) (QC): 6 4 Steps (QC): 6 12 Steps (QC): 9 Picking up an Object (QC): 88 PT Plan Treatment/Plan Treatment Plan: Continue Plan of Care Treatment Plan: Bed Mobility, Education, Functional Activity Sravani, Functional Strength, Group Therapy, Gait, Safety, Therapeutic Exercise, Transfers Frequency: Modified Program (IRF) (02/05) Estimated Hrs Per Day: Other (02/05) Patient and/or Family Agrees t: Yes Safety Risks/Education Patient Education: Gait Training, Transfer Techniques, Correct Positioning, W/C Management, Disease Process, Safety Issues Teaching Recipient: Patient Teaching Methods: Demonstration, Discussion Response to Teaching: Verbalize Understanding, Return Demonstration, Rein forcement Needed Time/GCodes Time In: 900 Time Out: 1000 Total Billed Treatment Time: 60 Total Billed Treatment 1,GT15m,WC15,EX15,FA15 NITO CLINTON DIRECTOR INFORMATION Aug 09, 2019 10:08
[2019-08-09 10:18] LABS: ALANINE AMINOTRANSFERASE 61 U/L (0-55); ALBUMIN 3.4 GM/DL (3.2-4.5); ALKALINE PHOSPHATASE 96 U/L (40-136); BILIRUBIN,TOTAL 0.6 MG/DL (0.1-1.0); BUN/CREATININE RATIO 21; CALCIUM 9.1 MG/DL (8.5-10.1); CARBON DIOXIDE 29 MMOL/L (21-32); CHLORIDE 101 MMOL/L (98-107); CREATININE SERUM 0.75 MG/DL (0.60-1.30); GFR ESTIMATED > 60; GLUCOSE 188 MG/DL (70-105); POTASSIUM 3.6 MMOL/L (3.6-5.0); SODIUM 142 MMOL/L (135-145); TOTAL PROTEIN 5.6 GM/DL (6.4-8.2)
--- NOTE | 2019-08-09 10:33 | ST Cognitive Linguistic Eval ---
Speech Evaluation-General Medical Diagnosis COPD exac; T6 comp fx Onset Date: Aug 08, 2019 Therapy Diagnosis Therapy Diagnosis: Cognitive-communication Precautions Precautions: Fall Precautions/Isolations: Fall Prevention, Standard Precautions Referral Referring Physician: Dr. Blackwood Reason for Referral: Evaluation/Treatment Medical History Pertinent Medical History: Atrial Fib (with RVR) Reviewed History: Yes Social History Current Living Status: Alone (son lives in nearby town) Speech PLF-Current Status Prior Level of Function Patient lived home alone where she was independent for her daily needs. Subjective The patient was pleasant and cooperative with the cognitive assessment. Language Eval: Auditory Comprehends Simple Yes/No Ques: Functional Indent/Objects Multiple [place]: Functional Ident/Pics in Multiple [place]: Functional Follows 1-Step Commands: Functional Follows Complex Directions: Functional Follows General Conversations: Functional Language Eval: Verbal Language Completes Spontaneous Greeting: Functional Produces Auto, Serial Info: Functional Imitates Simple Words/Phrases: Functional Word Finding: Functional Requests Basic Needs: Functional States Basic Personal Info: Functional Expresses Complex Ideas: Functional Objective Cognitive Domain Attention: WNL Memory: WNL Problem Solving: Functional Executive Functions: WNL Visuospatial Skills: WNL Composite Severity Rating: WNL Clock Drawing Severity Rating: WNL Objective Formal/Standardized Tests [facility] Mental Status ([facility]) Results 29/30, within normal range of function Oral Motor/Speech Production Withing Functional Range Impression Patient is a pleasant 69 year old female who was admitted to the ARU for strengthening in order to return home safely. The patient was given the SLUMS with a score of 29/30 which falls in the normal range of function. The patient does not require skilled ST services at this time. Speech Patient Assess Expression of Ideas/Wants: Expression (4) Understanding Verbal Content: Understands (4) Brief Interview-Mental Status: Yes Repetition of Three Words: Three (3) Temporal Orientation: Year: Correct (3) Temporal Orientation: Month: Accurate within 5 days(2) Temporal Orientation: Day: Correct (1) Recall : Wear to say "Sock": Yes, no cue required (2) Recall : Color: Yes, no cue required (2) Recall : Bed: Yes, no cue required (2) Memory/Recall Ability: Current season, That he or she is in a hsp/hsp unit Speech-Plan Patient/Family Goals Patient/Family Goals: The patient plans on returning to her home upon rehab discharge. Treatment Plan Speech Therapy Treatment Plan: Discontinue ST Patient does not warrant skilled ST at this time. Treatment Duration: Aug 09, 2019 Frequency: 1 time per week Estimated Hrs Per Day: .25 hour per day Rehab Potential: Fair Barriers to Learning: None identified Pt/Family Agrees to Plan: Yes Safety Risks/Education Teaching Recipient: Patient Teaching Methods: Discussion Response to Teaching: Verbalize Understanding Education Topics Provided: Safety within her room and communication of her wants/needs. Time Speech Therapy Time In: 10:00 Speech Therapy Time Out: 10:15 Total Billed Time: 15 Billed Treatment Time 1, SPSNDCOMP JESSICA Curiel Aug 09, 2019 10:33
[2019-08-09 10:48] LABS: BAND NEUTROPHILS 3 %; LYMPHOCYTES % (MANUAL) 5 %; MONOCYTES % (MANUAL) 5 %; NEUTROPHILS % (MANUAL) 84 %
[2019-08-09 10:49] LABS: ANISOCYTOSIS SLIGHT; BASOPHILS % (MANUAL) 0 %; EOSINOPHILS % (MANUAL) 0 %; METAMYELOCYTES % 1 %; MYELOCYTES % 2 %; POLYCHROMASIA SLIGHT
--- NOTE | 2019-08-09 11:58 | Physical Therapy Daily Note ---
PT Daily Note-Current Subjective C/o hemmorhoid Pt. sitting edge of bed at arrival. States she wants to be in recliner she believes but she isnt really sure. C/o hemmorhoid pain at 6/10 Pain Numeric Pain Scale: 6 Location: Medial Location Body Site: Sacrum (anal) Pain Description: Burning Mental Status Attachments: Oxygen (4L) Transfers SCALE: Activities may be completed with or without assistive devices. 0-Qcchuhditc-nloehcx completes the activity by him/herself with no assistance from a helper. 5-Set-up or Clean-up Assistance-helper sets up or cleans up; patient completes activity. [place] assists only prior to or following the activity. 4-Supervision or Touching Assistance-helper provides verbal cues and/or touching/steadying and/or contact guard assistance as patient completes a ctivity. Assistance may be provided throughout the activity or intermittently. 3-Partial/Moderate Assistance-helper does LESS THAN HALF the effort. [place] lifts, holds or supports trunk or limbs, but provides less than half the effort. 2-Substantial/Maximal Assistance-helper does MORE THAN HALF the effort. [place] lifts or holds trunk or limbs and provides more than half the effort. 5-Capmvatca-yogrsb does ALL the effort. Patient does none of the effort to complete the activity. Or, the assistance of 2 or more helpers is required for the patient to complete the activity. If activity was not attempted, code reason: 7-Patient Refused. 9-Not Applicable-not attempted and the patient did not perform the activity before the current illness, exacerbation or injury. 10-Not Attempted due to Environmental Limitations-(lack of equipment, weather restraints, etc.). 88-Not Attempted due to Medical Conditions or Safety Concerns. Transfers (B, C, W/C): 4 Sit to Stand (QC): 5 Chair/Egj-nl-Zmegc Xfer(QC): 4 instructed in how to scoot up in recliner, achieve zero grav position etc, pt. became somewhat anxious and wanted back up in sitting with LEs elevated Weight Bearing Right Lower Extremity: Right Weight Bearing/Tolerated Left Lower Extremity: Left Weight Bearing/Tolerated Gait Training Does the Patient Walk?: Yes Gait Assistive Device: FWW 8ft x2 CGA assist for O2 , SOB needs rest Exercises Supine Ex: Ankle pumps, Quad Set, Glut sets, Heel Slides, Scooting, Straight leg raise (3 ea), Hip abd/add Supine Reps: 12 Treatments positioned multiple times in recliner for comfort, SCDs on one leg only per pt. request, pillow under LEs heels floating reclined Assessment Current Status: Fair Progress PT Community Service Director Goals Senior Living Goals PT Community Service Director Goals Time Frame: Aug 24, 2019 Sit to Lying (QC): 6 Lying-Sitting on Side/Bed(QC): 6 Sit to Stand (QC): 6 Roll Left to Right (QC): 6 Chair/Qgq-tx-Kvjji Xfer(QC): 6 Car Transfer (QC): 6 Does the Patient Walk: Yes Walk 10 feet (QC): 6 Walk 10ft-Uneven Surface(QC): 6 Walk 50ft with 2 Turns (QC): 6 Walk 150 ft (QC): 6 Wheel 50 feet with 2 turns (QC: 9 1 Step (curb) (QC): 6 4 Steps (QC): 6 12 Steps (QC): 9 Picking up an Object (QC): 88 PT Plan Treatment/Plan Treatment Plan: Continue Plan of Care Treatment Plan: Bed Mobility, Education, Functional Activity Sravani, Functional Strength, Group Therapy, Gait, Safety, Therapeutic Exercise, Transfers Frequency: Modified Program (IRF) (02/05) Estimated Hrs Per Day: Other (02/05) Patient and/or Family Agrees t: Yes Safety Risks/Education Patient Education: Gait Training, Transfer Techniques, Correct Positioning, Disease Process, Safety Issues Teaching Recipient: Patient Teaching Methods: Demonstration, Discussion Response to Teaching: Verbalize Understanding, Return Demonstration, Reinforcement Needed Time/GCodes Time In: 1135 Time Out: 1155 Total Billed Treatment Time: 20 Total Billed Treatment 1,FA20m NITO CLINTON CASTING HOUSE LABORER Aug 09, 2019 11:58
[2019-08-09] MEDS: ENOXAPARIN 40 MG/0.4 ML (LOVENOX) SYR SQ SCH (12:40)
[2019-08-09 14:28] LABS: BILIRUBIN,URINE NEGATIVE (NEGATIVE); CLARITY,URINE CLEAR; COLOR,URINE YELLOW; GLUCOSE, URINE (UA) 2+ (NEGATIVE); KETONES,URINE NEGATIVE (NEGATIVE); LEUKOCYTE ESTERASE ,URINE 1+ (NEGATIVE); NITRITE,URINE NEGATIVE (NEGATIVE); PH,URINE 6.5 (5-9); PROTEIN,URINE 2+ (NEGATIVE)
[2019-08-09] MEDS: HYDROCORTISONE 25 MG SUPPOSITORY (ANUSOL HC) PR PRN (14:29)
[2019-08-09 14:41] LABS: BACTERIA,URINE TRACE /HPF; HYALINE CASTS, URINE 0-2 /LPF; RBC,URINE >100 /HPF
--- NOTE | 2019-08-09 14:58 | NUR ---
DR. CRUZ NOTIFIED OF UA RESULTS AND THAT PATIENT IS ALREADY ON KEFLEX FOR LEFT LEG CELLULITIS. ORDERS TO START MACROBID- 100 MG PO BID PENDING C&S.
--- NOTE | 2019-08-09 15:02 | NUR ---
ASTORGA CATHETER REMOVED PER ORDERS.
--- NOTE | 2019-08-09 15:14 | CONSULTATION REPORT ---
DATE OF SERVICE: 08/09/2019 ATTENDING PHYSICIAN: Dr. Blackwood. SUMMARY: A 69-year-old white lady with COPD exacerbation, respiratory distress and UTI. She has a catheter in, which is ordered to take out today. The patient denies any voiding symptoms at home. She wears 1 pad just for security. No major leakage. IMPRESSION: Urinary tract infection, mild incontinence. RECOMMENDATIONS: Proceed with removing the catheter and we will follow accordingly. Job ID: [id number] DocumentID: [id number] Dictated Date: 08/09/2019 12:39:56 Hybrid Car Mechanic Date: 08/09/2019 15:12:15 Dictated By: RUSSELL CRUZ MD
--- NOTE | 2019-08-09 15:45 | NUR ---
"RD ASSESSMENT PMHx: COPD; HTN; chronic constipation; DM; CA(lung) - recent diagnosis PT INTERACTION: Pt was awake and pleasant during rehab nutrition assessment. Pt states current appetite is poor, attributing to her food choices from her diet. Note <75 of meals consumed x2 meals. Pt states no recent issues with n/v at this time. Pt states constant issues with constipation/diarrhea and last BM was 08/09. Pt states no recent wt changes. Note unable to determine recent wt hx, per chart review. ABNORMAL NUTRITION-RELATED LAB VALUES: glu 188 (H); ALT 61 (H); Pro 5.6 (L) Est. kcal needs: 9928-3428 kcal (20-25 kcal/kg) Est. Pro needs: 107-125 g Pro (1.2-1.4 g Pro/kg) PES STATEMENT: Inadequate oral intake (NI-2.1) related to loss of appetite | undesirable food choices as evidenced by pt interview INTERVENTION: Continue with current diet order of CHO 60g/m 0snack diet. Add Ensure HP (chip) to meals TID. Provides 160 kcal and 16 g Pro per serving. Encouraged pt to eat when able. Encouraged pt to contact foodservice with questions about her menu. MONITOR/EVALUATE: PO Intake; Plan of Care; Hydration Status; Weight Status; Lab Values Hugo Fernandes, MS, RD, LD Ext. 133"
[2019-08-09] MEDS: DILTIAZEM 120 MG (CARDIZEM CD) CAP PO SCH (16:41)
--- NOTE | 2019-08-09 16:43 | NUR ---
Met with patient to complete initial assessment. Patient admitted to ARU on 08/08/19 after being hospitalized for exacerbation of COPD, afib with RVR and subsequent kyphoplasty for T6 compression fracture. Patient reports being diagnosed with lung cancer in September 2017 and has undergone radiation, radiation and chemotherapy and currently immunotherapy. She follows with Dr. [place] in the [facility] [facility]. The patient lives at home alone in a single-story home with 2 entry steps. She reports her son lives approximately 5 miles away. Prior to hospitalization the patient reports she was independent with ADLs and functional mobility. She denied use of adaptive equipment. She does report she currently has a shower chair. She states she would like a walker at discharge. She reports using oxygen at home prior to hospitalization and states she utilizes [facility]. Her preferred pharmacy is [facility] in [place], [place]. Patient states she is no longer going to utilize [facility] in [place], and is searching for a new PCP. She confirms primary insurance as Medicare with [place] Medicaid secondary. Her son, David Mccloud, is her primary contact. He can be reached at [phone]. Patient reports her son owns his own business and works during the day and is unable to provide assistance with her care if needed. Patient does report she is interested in HHC at discharge. She states her son is looking into private-duty caregivers to provide assistance with housekeeping. The purpose of the weekly team conference was discussed and the patient verbalized understanding. Patient's discharge goal is to return home alone.
--- NOTE | 2019-08-09 16:55 | NUR ---
NEW ORDER FOR CARDIZEM- 120 MG PO AT 1545. PATIENT REC'D CARDIZEM 30 MG PO AT 1240 AND 5 MG OF IV LOPRESSOR AT 1511. BP IS 101/57 AND HR IS 85. DR. EISENBERG NOTIFIED WITH ORDERS TO HOLD TODAY'S DOSE AND START TOMORROW.
[2019-08-09] MEDS: NITROFURANTOIN 100 MG (MACROBID) CAPSULE PO SCH (17:19)
--- NOTE | 2019-08-09 18:25 | NUR ---
UP TO THE BR TO VOID BUT MISSED THE HAT. PATIENT STATES THAT IT "FELT LIKE A LOT". HAT MOVED BACK IN TOILET. WILL CONTINUE TO MONITOR.
--- NOTE | 2019-08-09 18:27 | NUR ---
HEMORRHOIDS "FEEL BETTER" AFTER ANUSOL SUPPOSITORY.
[2019-08-09] MEDS: LIDOCAINE PATCH REMOVAL TP SCH (21:39)
[2019-08-09] MEDS: ACETAMINOPHEN 325 MG TABLET PO PRN (21:51)
--- NOTE | 2019-08-09 23:37 | NUR ---
PATIENT RESTLESS, STATES SHE IS UNABLE TO SLEEP. PATIENT REFUSED MELATONIN. PATIENT AMBULATED APPROX 25', W CONTACT GUARD, FWW, GAIT BELT FOR SAFETY. EVEN, STEADY GAIT. PATIENT CURRENTLY SITTING IN DINING AREA READING MAGAZINES. DENIES NEEDS OR C/O AT THIS TIME. STATES SHE IS "JUST AN INSOMNIAC' CONTINUE TO MONITOR PATIENT FROM NURSING STATION.
[2019-08-10] VITALS (9 sets, daily range): BP systolic 106–129; BP diastolic 61–83
[2019-08-10] MEDS: MELATONIN 3 MG TABLET PO PRN ×2 (00:44→21:27)
--- NOTE | 2019-08-10 00:45 | NUR ---
PT CONT TO C/O SLEEPLESSNESS. AGREEABLE TO TAKE MELATONIN. CONT TO MONITOR.
--- NOTE | 2019-08-10 02:03 | NUR ---
ICE BAGS PLACED ON PATIENT'S CHEST WHILE WAITING FOR DR CAMPBELL TO RETURN CALL. PATIENT ASYMPTOMATIC.
--- NOTE | 2019-08-10 02:05 | NUR ---
ICU NOTED TO FLOOR PATIENT'S HR>200 200-220'S, SVT. ASSESSED PATIENT. DR CAMPBELL PAGED WITH NEW ORDERS RECEIVED. IV LOPRESSOR 5MG NOW X 1, THEN Q4H PRN SVT, ADMIN CARDIZEM CD 240 MG PO X 1 NOW. PATIENT IS ASYMPTOMATIC AND EDUCATED ON ORDERS AND PROCEDURE. BP 128/83, HR 220. Addendum: 08/10/19 at 2652 by ELEANOR CARRILLO RN DR CAMPBELL RETURNED CALL [id number]
[2019-08-10] MEDS ORDERED: DILTIAZEM 240 MG (CARDIZEM CD) CAP PO ONE (02:09)
[2019-08-10] MEDS ORDERED: meTOprolol 5 MG/5 ML (LOPRESSOR) VIAL ONE (02:10)
[2019-08-10] MEDS: RT-ALBUTEROL/IPRATROPIUM 3 ML (DUONEB) VIAL INH SCH ×7 (02:18→22:47)
[2019-08-10] MEDS ORDERED: meTOprolol 5 MG/5 ML (LOPRESSOR) VIAL IV PRN (02:30)
--- NOTE | 2019-08-10 02:30 | NUR ---
PATIENT ASYMPTOMATIC AT THIS TIME. UP IN CHAIR. BP 103/62, HR 113, RR 20, SPO2 93% 3LO2. EATING TOMATO SOUP. DENIES C/O OR NEEDS AT THIS TIME. REMAINS ASYMPTOMATIC. CONT TO CLOSELY MONITOR. SEE VS INTERVENTION FOR FREQ VS ASSESSMENT.
[2019-08-10] MEDS: ACETAMINOPHEN 325 MG TABLET PO PRN (02:35)
[2019-08-10] MEDS: HYDROCORTISONE 25 MG SUPPOSITORY (ANUSOL HC) PR PRN (04:21)
[2019-08-10] MEDS: inSUlin ASPART (NovoLOG) 1 UNIT/0.01 ML (CHARGE PER UNIT) SC SCH ×4 (05:52→21:33)
[2019-08-10] MEDS: NITROFURANTOIN 100 MG (MACROBID) CAPSULE PO SCH ×2 (05:53→17:55)
[2019-08-10] MEDS: KCL 20 MEQ TAB (K-DUR) PO SCH (05:53)
--- NOTE | 2019-08-10 08:06 | Occupational Ther Daily Note ---
OT Current Status-Daily Note Subjective Pt seated on toilet at start of session, agreeable to OT tx this AM. Pt requested her hemorrhoid cream, nursing notified. Pt did not verbalize pain rating during session, groaned multiple times throughout session stating "my hemorrhoid." Mental Status/Objective Attachments: IV, Oxygen, Telemetry ADL-Treatment Therapy Code Descriptions/Definitions Functional [place] Measure: 0=Not Assessed/NA 4=Minimal Assistance 1=Total Assistance 5=Supervision or Setup 2=Maximal Assistance 6=Modified [place] 3=Moderate Assistance 7=Complete IndependenceSCALE: Activities may be completed with or without assistive devices. 4-Nytgauhwnn-jbkbqjm completes the activity by him/herself with no assistance from a helper. 5-Set-up or Clean-up Assistance-helper sets up or cleans up; patient completes activity. [place] assists only prior to or following the activity. 4-Supervision or Touching Assistance-helper provides verbal cues and/or touching/steadying and/or contact guard assistance as patient completes activity. Assistance may be provided throughout the activity or intermittently. 3-Partial/Moderate Assistance-helper does LESS THAN HALF the effort. [place] lifts, holds or supports trunk or limbs, but provides less than half the effort. 2-Substantial/Maximal Assistance-helper does MORE THAN HALF the effort. [place] lifts or holds trunk or limbs and provides more than half the effort. 9-Vepdmxxml-jfabdo does ALL the effort. Patient does none of the effort to complete the activity. Or, the assistance of 2 or more helpers is required for the patient to complete the activity. If activity was not attempted, code reason: 7-Patient Refused. 9-Not Applicable-not attempted and the patient did not perform the activity before the current illness, exacerbation or injury. 10-Not Attempted due to Environmental Limitations-(lack of equipment, weather restraints, etc.). 88-Not Attempted due to Medical Conditions or Safety Concerns. Toileting Hygiene (QC): 2 (Pt able to manage pants down, but required assistance managing pants and with hygiene.) Toilet Transfer (QC): 3 (Pt was able to sit on toilet with CGA, requiring min A to stand from toilet.) Other Treatment Pt on toilet at start of session. Transferred with [facility]. OT assisted pt with brushing out matted hair, pt able to assist ~25% of time, but due to fatigue required assistance. O2 sat 90-97% throughout session, mod cues to take rest breaks as needed and to not hold breath during task. Pt stated she needed to go to the bathroom, OT assisted pt to bathroom. Post OT session, pt seated on toilet and nursing notified. Education OT Patient Education: Energy conservation, Modified ADL techniques, Progress toward Goal/Update tx plan, Purpose of tx/functional activities, Transfer techniques Teaching Recipient: Patient Teaching Methods: Demonstration, Discussion Response to Teaching: Verbalize Understanding OT Short Term Goals Short Term Goals Time Frame: Aug 15, 2019 Eating(FIM): 5 Grooming(FIM): 5 Bathing(FIM): 3 Upper Body Dressing(FIM): 4 Lower Body Dressing(FIM): 3 Toileting(FIM): 3 Transfers (B,C,W/C) (FIM): 4 Toilet/Commode Transfer(FIM): 4 Shower Transfer(FIM): 4 Additional Short Term Goals: 1-Demonstrate ADL Tasks, 2-Verbalize Understanding, 3-ImproveStrength/Sravani 1=Demonstrate adherence to instructed precautions during ADL tasks. 2=Patient will verbalize/demonstrate understanding of assistive devices/modifications for ADL. 3=Patient will improve strength/tolerance for activity to enable patient to perform ADL's. OT Brand Designer Goals Brand Designer Goals Time Frame: Aug 22, 2019 Eating (QC): 6 Oral Hygiene (QC): 6 Shower/Bathe Self (QC): 4 Upper Body Dressing (QC): 6 Lower Body Dressing (QC): 6 On/Off Footwear (QC): 6 Toileting Hygiene (QC): 6 Toilet/Commode Transfer (QC): 6 Additional Goals: 1-Demonstrate ADL Tasks, 2-Verbalize Understanding, 3- ImproveStrength/Sravani 1=Demonstrate adherence to instructed precautions during ADL tasks. 2=Patient will verbalize/demonstrate understanding of assistive devices/modifications for ADL. 3=Patient will improve strength/tolerance for activity to enable patient to perform ADL's. OT Education/Plan Problem List/Assessment Assessment: Decreased Activ Tolerance, Decreased UE Strength, Impaired I ADL's, Impaired Self-Care Skills Discharge Recommendations Plan/Recommendations: Continue POC Treatment Plan/Plan of Care Treatment,Training & Education: Yes Patient would benefit from OT for education, treatment and training to promote independence in ADL's, mobility, safety and/or upper extremity function for ADL's. Plan of Care: ADL Retraining, Functional Mobility, Group Exercise/Act as Ind, UE Funct Exercise/Act Treatment Duration: Aug 22, 2019 Frequency: At least 5 of 7 days/Wk (IRF) Estimated Hrs Per Day: 1.5 hours per day Agreement: Yes Rehab Potential: Fair Time/GCodes Start Time: 08:00 Stop Time: 09:40 Total Time Billed (hr/min): 100 Billed Treatment Time 1, ADL 7 ROBERT BERNSTEIN OT Aug 10, 2019 08:06
--- NOTE | 2019-08-10 08:31 | Cardiology Progress Note ---
Subjective Date Seen by Provider: Aug 10, 2019 Time Seen by Provider: 08:30 Subjective/Events-last exam Patient is sitting up in chair, no new complaints. Had episode of tachycardia last night while sleeping. Was asymptomatic, required IV Lopressor Objective-Cardiology Exam Last Set of Vital Signs Vital Signs 08/10/19 08/10/19 08/10/19 08/10/19 04:38 06:10 11:40 13:00 Temp 36.2 Pulse 118 Resp 22 B/P (MAP) 115/61 (79) Pulse Ox 91 O2 Delivery Nasal Cannula O2 Flow Rate 3.00 FiO2 32 Capillary Refill : Less Than 3 Seconds I&O Intake and Output 08/10/19 00:00 Intake Total 1200 ml Output Total 1400 ml Balance -200 ml Intake Oral 1200 ml Output Urine Total 1400 ml # Bowel Movements 4 General: Alert, Oriented X3, Cooperative HEENT: Atraumatic, PERRLA Neck: Supple, No JVD, No Thyromegaly Lungs: Clear to Auscultation, Normal Air Movement Heart: No Murmurs, Other (irregularly irregular) Abdomen: Normal Bowel Sounds, Soft, No Tenderness, No Hepatosplenomegaly, No Masses Extremities: No Clubbing, No Cyanosis, Normal Pulses, No Tenderness/Swelling, Other (+1 edema BLE) Skin: No Rashes, No Breakdown, No Significant Lesion Neuro: Normal Gait, Normal Speech, Strength at 5/5 X4 Ext, Normal Tone, Sensation Intact Results Lab A/P-Cardiology Admission Diagnosis PAF COPD Hx Lung CA T6 fx, s/p kyphoplasty. Assessment/Plan Paroxysmal atrial fibrillation/flutter with rapid response returned to sinus tachycardia, continue to monitor. Planning to start OAC once ok with Dr. Wallace. COPD with episode of exacerbation, improved, managed by primary care team Acute psychosis, change in mental status, improved. Managed by medical team. Back pain, T6 fracture, s/p kyphoplasty with Dr. Wallace on 08/05/19 Metabolic acidosis with acute respiratory failure, better at this time. Hx of Lung CA- followed by Dr. Birmingham. Acute renal failure- improved, continue to monitor. Ex tobaccoism Obesity Patient was seen and evaluated with [place], examination performed, management plan was discussed, agree with the current scribed note, I made few changes to the note using Italic font Patient is feeling better, asymptomatic Had episode of SVT, currently controlled with medication. Continue to monitor. Clinical Quality Measures DVT/VTE Risk/Contraindication: Risk Factor Score Per Nursin RFS Level Per Nursing on Admit: 4+=Very High CHEYANNE FLORENTINO Aug 10, 2019 8:31 am CHAGO EISENBERG MD Aug 10, 2019 3:47 pm
[2019-08-10] MEDS: POLYETHYLENE GLYCOL 17 GM (MIRALAX) PACK PO SCH ×3 (09:00→21:26)
[2019-08-10] MEDS: DILTIAZEM 120 MG (CARDIZEM CD) CAP PO SCH (09:26)
[2019-08-10] MEDS: FUROSEMIDE 40 MG (LASIX) TAB PO SCH (09:26)
[2019-08-10] MEDS: SENNA W/DOCUSATE (SENOKOT S) TABLET PO SCH ×2 (09:26→21:26)
[2019-08-10] MEDS: HYDROCORTISONE/PRAM 1% CREAM 30 GM TUBE TOP SCH ×2 (09:26→21:35)
[2019-08-10] MEDS: LIDOCAINE 4% (SALONPAS) PATCH TOP SCH (09:27)
[2019-08-10] MEDS: CEPHALEXIN 250 MG (KEFLEX) CAP PO SCH ×4 (09:28→21:26)
--- NOTE | 2019-08-10 10:13 | PM&R Progress Note ---
Subjective HPI/CC On Admission Date Seen by Provider: Aug 10, 2019 Time Seen by Provider: 08:30 CC: T6 compression fracture s/p kyphoplasty Hospital course from med-surg: Ms. Mccloud presented to ER in exacerbation of COPD and respiratory distress, has seen pulmonology. She had recently been diagnosed with lung cancer, is DNR do not intubate. During initial management of COPD exacerbation was found to be in Afib with RVR, heart rate of 170s, has seen cardiology. She also had been experiencing back pain, was found to have T6 compression fracture and underwent kyphoplasty. She continues to have back pain. Noted to have confusion and sundowning, also reports having insomnia. When seen today she reports feeling well overall, she reports her breathing is better now than it had been prior to admission. Her only complaint is of leg weakness. She still has a lopez catheter in due to concerns about her legs being too weak to make it to a toilet in time. She will be discharged to IRF. [facility] Hospital Course: Pt had a lengthy hospital course for two weeks. She was admitted for respiratory insufficiency placed on bi-PAP and pneumonia with history of lung cancer just diagnosed by Dr. Birmingham and Dr. De La Cruz. Compression fracture required kyphoplasty but she had multiple ICU transfers due to worsen ing respiratory status and encephalopathy so she was very weakened but breathing better at time of DC and back on baseline at 3 liters of O2. PT and OT orders placed and she was deemed stable for DC to inpatient rehab where she will begin her recovery and be able to undergo lung cancer treatment. Currently she is just finished up with her shower with occupational therapy. She is refusing the Geodon injections and she denies taking any major psych meds as an outpatient. Melatonin will be ordered to help with her chronic insomnia. Left leg improved with the Keflex for venous stasis dermatitis with cellulitis. Ravi wraps will be initiated for lower extremity edema considering volume overload from aggressive IV fluids upstairs on MedSurg caused fluid to go into soft tissue. We will discontinue the Lopez catheter. Anxiety will be managed also. Dr. Waddell is managing the hemorrhoid and we have consulted him and I appreciate his help. Her bowels are actually a little bit loose. Subjective/Events-last exam Had an episode of SVT last night Cardizem and Lopressor given No symptoms with this Dr. Waddell will manage the hemorrhoid Lopez will be DC Cough is productive [place] [facility] [place] with [place] Reviewed therapy notes Checked meds and labs Needs psych consult Review of Systems General: Fatigue Pulmonary: Dyspnea Cardiovascular: Edema Objective Exam Vital Signs Vital Signs Date Time Temp Pulse Resp B/P (MAP) Pulse Ox O2 Delivery O2 Flow Rate FiO2 08/11/19 00:42 101 08/10/19 22:47 97 Nasal Cannula 4.00 08/10/19 18:10 37.0 22 123/78 (93) 08/10/19 11:40 32 Capillary Refill : Less Than 3 Seconds General Appearance: No Apparent Distress, WD/WN, Chronically ill, Obese HEENT: PERRL/EOMI, Normal ENT Inspection, Pharynx Normal, Moist Mucous Membranes Neck: Full Range of Motion, Normal Inspection, Non Tender, Supple Respiratory: Chest Non Tender, Lungs Clear, No Accessory Muscle Use, No Respiratory Distress, Decreased Breath Sounds Cardiovascular: Regular Rate, Rhythm, No Edema, No Gallop, No JVD, No Murmur Gastrointestinal: Normal Bowel Sounds, No Organomegaly, No Pulsatile Mass, Non Tender, Soft Back: Normal Inspection, No CVA Tenderness, No Vertebral Tenderness Extremity: Normal Capillary Refill, Normal Inspection, Normal Range of Motion, Non Tender, No Calf Tenderness, Pedal Edema Neurologic/Psychiatric: Alert, Oriented x3, No Motor/Sensory Deficits (except generalized all extremities 3/5), Normal Mood/Affect, warp clamper II-XII Norm as Tested Skin: Normal Color, Warm/Dry, Rash (left leg with mild erythema from cellulitis) Lymphatic: No Adenopathy Results/Procedures Lab Patient resulted labs reviewed. FIM Transfers Therapy Code Descriptions/Definitions Functional [place] Measure: 0=Not Assessed/NA 4=Minimal Assistance 1=Total Assistance 5=Supervision or Setup 2=Maximal Assistance 6=Modified [place] 3=Moderate Assistance 7=Complete IndependenceSCALE: Activities may be completed with or without assistive devices. 8-Luvkihrmlk-qevqzpm completes the activity by him/herself with no assistance from a helper. 5-Set-up or Clean-up Assistance-helper sets up or cleans up; patient completes activity. [place] assists only prior to or following the activity. 4-Supervision or Touching Assistance-helper provides verbal cues and/or touching/steadying and/or contact guard assistance as patient completes acti vity. Assistance may be provided throughout the activity or intermittently. 3-Partial/Moderate Assistance-helper does LESS THAN HALF the effort. [place] lifts, holds or supports trunk or limbs, but provides less than half the effort. 2-Substantial/Maximal Assistance-helper does MORE THAN HALF the effort. [place] lifts or holds trunk or limbs and provides more than half the effort. 3-Slkjsngtg-wllzod does ALL the effort. Patient does none of the effort to complete the activity. Or, the assistance of 2 or more helpers is required for the patient to complete the activity. If activity was not attempted, code reason: 7-Patient Refused. 9-Not Applicable-not attempted and the patient did not perform the activity before the current illness, exacerbation or injury. 10-Not Attempted due to Environmental Limitations-(lack of equipment, weather restraints, etc.). 88-Not Attempted due to Medical Conditions or Safety Concerns. Transfers (B, C, W/C) (FIM): 4 Roll Left to Right (QC): 3 Sit to Lying (QC): 3 Sit to Stand (QC): 5 Chair/Zdx-aw-Wrqbj Xfer(QC): 4 Car Transfer (QC): 88 (hemerrhoid pain limits at this time. ) Gait Training Does the Patient Walk?: Yes Gait (FIM): 4 Distance (FIM): 1=up to 49 ft Walk 10 feet (QC): 4 Walk 50 ft with 2 Turns(QC): 88 Walk 150 ft (QC): 88 Walking 10ft/uneven surface-QC: 88 Gait Persons Needed: 1 Gait Assistive Device: FWW Wheelchair Training Does the Pt Use a Wheelchair?: Yes Wheelchair Distance: 0=674-08 ft Wheel 50 ft with 2 turns (QC): 4 Wheel 150 ft (QC): 88 Type of Wheelchair: Manual Stair Training 1 Step (curb) (QC): 88 (pt unable to safely perform or attempt) 4 Steps (QC): 88 12 Steps (QC): 88 Balance Picking up an Object (QC): 88 (contraindicated with recent kyphoplasty) ADL-Treatment Eating (QC): 6 (Pt able to complete own set up and uses regular utensils to eat.) Oral Hygiene (QC): 7 Bathing Location: L Arm, R Arm, L Upper Leg, R Upper Leg, Chest, Abdomen, Buttocks (leaned side to side), Perineal Area Shower/Bathe Self (QC): 3 Upper Body Dressing (QC): 7 Lower Body Dressing (QC): 2 (Footwear (QC) 2) On/Off Footwear (QC): 2 Toileting Hygiene (QC): 2 (Pt able to manage pants down, but required assistanc e managing pants and with hygiene.) Toilet Transfer (QC): 3 (Pt was able to sit on toilet with CGA, requiring min A to stand from toilet.) Assessment/Plan Assessment and Plan Assess & Plan/Chief Complaint Assessment: T6 compression fracture pathological either osteoporosis or lung cancer status post kyphoplasty uncomplicated Acute on chronic respiratory failure requiring [address] [facility] hospital course COPD Former smoker History of acute renal failure Severe anxiety Emotional mental problems Anemia Hypertension iel-ra-dkgnxac Severe debility Lopez catheter in place Severe weakness Left lower extremity cellulitis placed on Keflex Severe lower extremity edema ordered Ravi wraps Hemorrhoids [facility]: [facility] Complete Keflex Wide Ravi wraps Hemorrhoid treatment (1) Compression fracture of T6 vertebra Status: Acute (2) COPD (chronic obstructive pulmonary disease) Status: Chronic (3) Constipation Status: Acute (4) Lung mass (5) Lung cancer Status: Chronic (6) Altered mental status Status: Resolved Resolution Date/Time: 08/05/19 @ 16:39 (7) Leg edema Status: Acute (8) Acidosis Status: Acute (9) Acute on chronic respiratory failure Status: Acute (10) Acute renal failure Status: Acute (11) Anxiety Status: Acute (12) Elevated troponin Status: Acute (13) Elevation of cardiac enzymes Status: Acute (14) Sinus tachycardia Status: Acute (15) UTI (urinary tract infection) Status: Acute (16) Uncontrolled hypertension Status: Acute (17) Edema (18) Left leg cellulitis (19) Venous stasis dermatitis (20) Insomnia CHARLY HEIN DO Aug 10, 2019 10:13
--- NOTE | 2019-08-10 10:14 | Individualized Plan of Care ---
Individualized Plan of Care Rehab Nursing IPOC Order Admission Date Aug 08, 2019 at 11:45 Current Orders Orders Admission Arrival Bed Request (08/08/19 11:45) Admission Order(Inpt,Obs,Sdc) (08/08/19 11:44) Field Health Officer-Inpt Rehab Con (08/08/19 11:44) Rehab Nursing Orders-Ipoc (08/08/19 11:44) Physical Therapy Rehab Orders (08/08/19 11:44) Occupational Therapy Rehab Ord (08/08/19 11:44) Speech Therapy Rehab Orders (08/08/19 11:44) Precautions (Aru) (08/08/19 11:44) Rehab-Intensity Of Therapy (08/08/19 11:44) Initiate Admission Nursing Pro .admission (08/08/19 11:44) Code/Resuscitation (08/08/19 12:58) Accucheck Achs ACHS (08/08/19 12:58) Activity As Ordered UD (08/08/19 12:58) Ambulate 08,12,20 (08/08/19 12:58) Catheter(Urinary) Insert & Ass 03,15 (08/08/19 12:58) Iv Start Anesthesia (Order) (08/08/19 12:58) Notify Physician UD (08/08/19 12:58) Notify Physician: Vital Signs UD (08/08/19 12:58) Telemetry (08/08/19 12:58) Weight Bearing Status (08/08/19 12:58) Cho 60g/M 0snack (16-2000 Og) (08/08/19 Dinner) Albuterol/Ipra Inhalation Soln (Duoneb I (08/08/19 14:00) Cephalexin Capsule (Keflex Capsule) (08/08/19 13:00) Diltiazem Tablet (Cardizem Tablet) (08/08/19 18:00) Enoxaparin Injection (Lovenox Injection) (08/08/19 13:00) Furosemide Tablet (Lasix Tablet) (08/09/19 09:00) Hydromorphone Injection (Dilaudid Inject (08/08/19 13:00) Lorazepam Injection (Ativan Injection) (08/08/19 13:00) Lidocaine 4% Patch (Salonpas 4% Patch) (08/09/19 09:00) Nitroglycerin 0.4 Mg Btl 25's (Nitrostat (08/08/19 13:00) Ns Iv 1000 Ml (Sodium Chloride 0.9%) (08/08/19 13:00) Patch Removal (Patch Removal) (08/08/19 21:00) Phenyleph/Mineral Oil/Petrolat (Hemorrho (08/08/19 13:00) Polyethylene Glycol Powder Pkt (Miralax (08/08/19 13:00) Potassium Chloride (Tablet) (K Dur Table (08/09/19 07:00) Senna S Tablet (Senokot S Tablet) (08/08/19 21:00) Ziprasidone Injection (Geodon Injection) (08/08/19 21:00) Insulin Aspart (Novolog) (Novolog (Charg (08/08/19 16:00) Metoprolol Tartrate Injection (Lopressor (08/08/19 18:00) Oxycodone/Acet 10/325mg Tablet (Percocet (08/08/19 13:00) Risperidone Tablet (Risperdal Tablet) (08/08/19 21:00) Consult Cardiology (08/08/19 12:58) Consult Oncology/Medical (08/08/19 12:58) Consult Physician (08/08/19 12:58) Consult Pulmonology (08/08/19 12:58) Hospice Consult (08/08/19 12:58) Irf Req Eval/Acute Rehab (08/08/19 12:58) Pt Evaluate/Treat Request (08/08/19 12:58) Physical Therapy Order (08/08/19 12:58) Request Ot Evaluate & Treat (08/08/19 12:58) Telemetry Nursing Assessment ( (08/08/19 12:58) Oxygen-Administer (08/08/19 13:12) Patient Visit (08/08/19 ) Pt Eval Moderate Complexity (08/08/19 ) Functional Activities, Ea 15 (08/08/19 ) Ex Neuromuscular, Ea 15 Min (08/08/19 ) Consult General Surgery (08/08/19 17:06) Hydrocortisone 2.5% Cream (Anusol-Hc 2.5 (08/08/19 21:00) Hydrocortisone Suppository (Anusol-Hc Garcia (08/08/19 17:15) Hydrocortisone/Pram 1% Cream (Proctocrea (08/08/19 21:00) Metoprolol Tartrate Injection (Lopressor (08/08/19 20:30) Sodium Chloride Flush (Catheter Flush Sy (08/08/19 21:21) Sequential Compression Device Q4H (08/08/19 21:45) Dvt/Vte Risk - Notifiy Physici Q4H (08/08/19 21:45) Cbc With Automated Diff (08/09/19 08:15) Comprehensive Metabolic Panel (08/09/19 08:15) Consult Urology (08/09/19 09:41) Nursing Communication (Order) (08/09/19 09:41) Risperidone Tablet (Risperdal Tablet) (08/09/19 10:00) Ziprasidone Injection (Geodon Injection) (08/09/19 10:00) Manual Differential (08/09/19 09:41) Catheter(Urinary) Discontinue (08/09/19 10:03) Melatonin Tablet (Melatonin Tablet) (08/09/19 13:30) Acetaminophen Tablet/Caplet (Tylenol T (08/09/19 13:30) Patient Visit (08/09/19 ) Gait Training, Ea 15 Min (08/09/19 ) Functional Activities, Ea 15 (08/09/19 ) Exercise Therap, Ea 15 Min (08/09/19 ) Wheelchair Mgmt/Propulsn 15min (08/09/19 ) Ua Culture If Indicated (08/09/19 14:23) Patient Visit (08/09/19 ) Speech Sound Lang Comp (08/09/19 ) Urine Culture (08/09/19 14:22) Metoprolol Succinate (Xl) Tab (Toprol Xl (08/10/19 09:00) Diltiazem Cd 24 Hr Capsule (Cardizem Cd (08/09/19 15:45) Ensure High Protein (08/09/19 Dinner) Nitrofurantoin Capsule,Macro (Macrobid C (08/09/19 17:00) Diltiazem Cd 24 Hr Capsule (Cardizem Cd (08/10/19 02:09) Metoprolol Tartrate Injection (Lopressor (08/10/19 02:10) Metoprolol Tartrate Injection (Lopressor (08/10/19 02:30) Bladder Scan (08/10/19 10:56) Mat Initiate Protocol (08/10/19 11:40) Incentive Spirometry Initial (08/10/19 11:49) Incentive Spirometry (Nursing) Q2H (08/10/19 11:49) Phenazopyridine Tablet (Pyridium Tablet) (08/10/19 18:00) Behavorial Health Consult (08/10/19 14:56) Patient Visit (08/10/19 ) Exercise Therap, Ea 15 Min (08/10/19 ) Gait Training, Ea 15 Min (08/10/19 ) Functional Activities, Ea 15 (08/10/19 ) Alprazolam Tablet (Xanax Tablet) (08/10/19 17:00) Rehab Nursing Orders: Ongoing Assess. of Cognitive Status, Ongoing Assess. of Function Status, Bladder Management, Bladder Scan, Bladder Training, Bowel Management, Bowel Training, Disease Management & Educaiton, DVT Prophylaxis, Fall Prevention, Fluid/Electrolyte/Nutrition Mgmt, Infection Prevention, Medication Management & Education, Management of Risks & Complications, Nutrition Management, Pain Management, Patient/Family Support, Safety Management, Swallow Precautions Intensity of Therapy to be met Patient to be seen: Min.3h per day/5 of 7d PT IPOC Problem List: Activity Tolerance, Functional Strength, Safety, Balance, Gait, Transfer, Bed Mobility Treatment Plan: Continue Plan of Care Bed Mobility, Education, Functional Activity Sravani, Functional Strength, Group T herapy, Gait, Safety, Therapeutic Exercise, Transfers Treatment Duration: Aug 11, 2019 Frequency: Modified Program (IRF) (02/05) Estimated Hrs Per Day: Other (02/05) OT IPOC Problems: Decreased Activ Tolerance, Decreased UE Strength, Impaired I ADL's, Impaired Self-Care Skills OT Treatment, Training and Edu: Yes Plan of Care: ADL Retraining, Functional Mobility, Group Exercise/Act as Ind, UE Funct Exercise/Act Treatment Duration: Aug 22, 2019 Frequency: At least 5 of 7 days/Wk (IRF) Estimated Hrs Per Day: 1.[address] IPOC Speech Therapy Treatment Plan: Discontinue ST Treatment Duration: Aug 09, 2019 Frequency: 1 time per week Estimated Hrs Per Day: .25 hour per day Field Health Officer/Case Mgmt Field Health Officer/Case Managemen: Discharge Planning Dietitian/Sludge Control Attendant Dietitian/Sludge Control Attendant to monitor nutritional status and make changes and/or recommendations as needed and work with speech pathology on dietary upgrades as the occur. Physician IPOC Medical Issues being managed closely and that require the 24 hour availability of a physician: Physician 24/7 supervision required due to recent ICU stay for respiratory failure Medical Issues: Bowel/Bladder Function, DVT Prophylaxis, Falls Precautions, Fluid/Electrolyte/Nutrition Balance, Pain Management Brief Synthesis of Preadmission Screen, Post-Admission Evaluation, and Therapy Evaluations: PT will work on increasing ambuation due to severe COPD myopathy OT will work on her dependence of ADLs considering her overall weakness from ICU stays Speech therapy will work on cognition Behavioral health will be consulted Medical Prognosis: Good Anticipated Length of Stay: 10 days CHARLY HEIN DO Aug 10, 2019 10:13
--- NOTE | 2019-08-10 10:56 | Progress Note - Urology ---
Progress Note-Urology Progress Notes/Assess & Plan Progress/Assessment & Plan VOIDING WELL. NO ISSUES. UC WAS NEGATIVE. RECOMMEND DC [facility] IN 2 DAYS. CHECK PVR SCAN TODAY Final Diagnosis URINE RETENTION AND INCONTINENCE RUSSELL CRUZ MD Aug 10, 2019 10:56
--- NOTE | 2019-08-10 12:45 | Physical Therapy Daily Note ---
PT Daily Note-Current Subjective Pt. states she is still having trouble with hemorrhoids and still having frequent urination and a lot of hemorrhoid pain. Pt. requests going to the bathroom several times during Rx. Pt is indecisive about what she wants to make her more comfortable and where she wants to sit or lay etc. Pain Numeric Pain Scale: 6 Location: Medial Location Body Site: Sacrum (anal hemprrhoid pain) Pain Description: Burning Mental Status Patient Orientation: Person, Place, Time, Situation Attachments: Oxygen (4L) Transfers SCALE: Activities may be completed with or without assistive devices. 9-Ddbaacbhfq-arjxclk completes the activity by him/herself with no assistance from a helper. 5-Set-up or Clean-up Assistance-helper sets up or cleans up; patient completes activity. [place] assists only prior to or following the activity. 4-Supervision or Touching Assistance-helper provides verbal cues and/or touching/steadying and/or contact guard assistance as patient completes activity. Assistance may be provided throughout the activity or intermittently. 3-Partial/Moderate Assistance-helper does LESS THAN HALF the effort. [place] lifts, holds or supports trunk or limbs, but provides less than half the effort. 2-Substantial/Maximal Assistance-helper does MORE THAN HALF the effort. [place] lifts or holds trunk or limbs and provides more than half the effort. 2-Rlsxokqmi-bxizsb does ALL the effort. Patient does none of the effort to complete the activity. Or, the assistance of 2 or more helpers is required for the patient to complete the activity. If activity was not attempted, code reason: 7-Patient Refused. 9-Not Applicable-not attempted and the patient did not perform the activity before the current illness, exacerbation or injury. 10-Not Attempted due to Environmental Limitations-(lack of equipment, weather restraints, etc.). 88-Not Attempted due to Medical Conditions or Safety Concerns. Transfers (B, C, W/C): 3 Sit to Stand (QC): 3 Chair/Asv-lb-Xgnwc Xfer(QC): 4 from toilet seat pt. required mod to min assist claiming she could not stand but when therapist got in lifting position and helped her pt. performed 75% of sit to stand Weight Bearing Right Lower Extremity: Right Weight Bearing/Tolerated Left Lower Extremity: Left Weight Bearing/Tolerated Gait Training Does the Patient Walk?: Yes Gait: 4 Walk 10 feet (QC): 4 Walk 50 ft with 2 Turns(QC): 88 Walk 150 ft (QC): 88 Walking 10ft/uneven surface-QC: 88 Gait Persons Needed: 1 Gait Assistive Device: FWW short bouts of gait with pt. occasionally stopping to bend over and rest arms on FWW, then walk further. Pt. says her legs are shaky but she appears sturdy and only requires CGA Wheelchair Training Does the Pt Use a Wheelchair?: Yes Wheelchair Distance: 1=up to 49 ft Wheel 50 ft with 2 turns (QC): 3 Type of Wheelchair: Manual brakes indep, needs instruction for propulsion etc and turning effectively Exercises Seated Therapy Exercises: Ankle pumps, Sit to stand, Long arc quads, Hip flexion, Hip abd/add Seated Reps: 15 Treatments toileted many times, pt. emotional and anxious and requires guidance as to what might be best for her functionally etc. Assessment Current Status: Good Progress pt. can likely walk further and do more if she could/would relax and concentrate. No LOB, has noted min labored breathing but O2 sats are >90% PT Nursing Home Goals Nursing Home Goals PT Nursing Home Goals Time Frame: Aug 24, 2019 Sit to Lying (QC): 6 Lying-Sitting on Side/Bed(QC): 6 Sit to Stand (QC): 6 Roll Left to Right (QC): 6 Chair/Elv-di-Gopcf Xfer(QC): 6 Car Transfer (QC): 6 Does the Patient Walk: Yes Walk 10 feet (QC): 6 Walk 10ft-Uneven Surface(QC): 6 Walk 50ft with 2 Turns (QC): 6 Walk 150 ft (QC): 6 Wheel 50 feet with 2 turns (QC: 9 1 Step (curb) (QC): 6 4 Steps (QC): 6 12 Steps (QC): 9 Picking up an Object (QC): 88 PT Plan Treatment/Plan Treatment Plan: Continue Plan of Care Treatment Plan: Bed Mobility, Education, Functional Activity Sravani, Functional Strength, Group Therapy, Gait, Safety, Therapeutic Exercise, Transfers Frequency: Modified Program (IRF) (02/05) Estimated Hrs Per Day: Other (02/05) Patient and/or Family Agrees t: Yes Safety Risks/Education Patient Education: Gait Training, Transfer Techniques, Correct Positioning, Disease Process, Safety Issues Teaching Recipient: Patient Teaching Methods: Demonstration, Discussion Response to Teaching: Verbalize Understanding, Return Demonstration, Reinforcement Needed Time/GCodes Time In: 1100 Time Out: 1200 Total Billed Treatment Time: 60 Total Billed Treatment 1,EX20m,FA25m,GT15m NITO CLINTON RECRUITING ASSISTANT Aug 10, 2019 12:45
[2019-08-10] MEDS: ENOXAPARIN 40 MG/0.4 ML (LOVENOX) SYR SQ SCH (14:08)
--- NOTE | 2019-08-10 14:35 | Physical Therapy Daily Note ---
PT Daily Note-Current Subjective Pt. expresses concern about going to the bathroom so frequently for urination. Also concerned about her back pain, her leg weakness and her fluid retention in LEs and face. Nurse present and attempts to educate pt. that frequent urination is caused by diuretics and is normal. This VARNISH MIXER expresses that the frequent w alks to the bathroom are a good thing and that it is normal to excrete in this manner with diuretics. Pain Numeric Pain Scale: 3 Location: Medial Location Body Site: Back Pain Description: Ache Mental Status Patient Orientation: Person, Place, Time, Situation Attachments: Oxygen, IV pt. anxious and frequently asks same questions Transfers SCALE: Activities may be completed with or without assistive devices. 0-Ipeejqdija-ynlftzy completes the activity by him/herself with no assistance from a helper. 5-Set-up or Clean-up Assistance-helper sets up or cleans up; patient completes activity. [place] assists only prior to or following the activity. 4-Supervision or Touching Assistance-helper provides verbal cues and/or touching/steadying and/or contact guard assistance as patient completes activity. Assistance may be provided throughout the activity or intermittently. 3-Partial/Moderate Assistance-helper does LESS THAN HALF the effort. [place] lifts, holds or supports trunk or limbs, but provides less than half the effort. 2-Substantial/Maximal Assistance-helper does MORE THAN HALF the effort. [place] lifts or holds trunk or limbs and provides more than half the effort. 1-Pellvzrvt-bmvdnv does ALL the effort. Patient does none of the effort to complete the activity. Or, the assistance of 2 or more helpers is required for the patient to complete the activity. If activity was not attempted, code reason: 7-Patient Refused. 9-Not Applicable-not attempted and the patient did not perform the activity before the current illness, exacerbation or injury. 10-Not Attempted due to Environmental Limitations-(lack of equipment, weather restraints, etc.). 88-Not Attempted due to Medical Conditions or Safety Concerns. Transfers (B, C, W/C): 4 sit to stand CGA , chair to chair TRF CGA with FWW Weight Bearing Right Lower Extremity: Right Weight Bearing/Tolerated Left Lower Extremity: Left Weight Bearing/Tolerated Gait Training pt. ambulated bed to toilet 20 ft with CGA and assist O2 as well as a very short dist chair to chair with CGA and assist to manage O2 tube Treatments much of Rx spent attempting to get pt comfortable in recliner with SCDs and LEs elevated. Call hendricks at hand. Assessment Current Status: Fair Progress pts. anxiety is self limiting . Pt. could possibly walk further , states her legs are so weak but she has never lost control or had incident of weakness with this VARNISH MIXER PT Saddle And Harness Maker Goals Saddle And Harness Maker Goals PT Saddle And Harness Maker Goals Time Frame: Aug 24, 2019 Sit to Lying (QC): 6 Lying-Sitting on Side/Bed(QC): 6 Sit to Stand (QC): 6 Roll Left to Right (QC): 6 Chair/Dtl-ou-Mnjkg Xfer(QC): 6 Car Transfer (QC): 6 Does the Patient Walk: Yes Walk 10 feet (QC): 6 Walk 10ft-Uneven Surface(QC): 6 Walk 50ft with 2 Turns (QC): 6 Walk 150 ft (QC): 6 Wheel 50 feet with 2 turns (QC: 9 1 Step (curb) (QC): 6 4 Steps (QC): 6 12 Steps (QC): 9 Picking up an Object (QC): 88 PT Plan Treatment/Plan Treatment Plan: Continue Plan of Care Treatment Plan: Bed Mobility, Education, Functional Activity Sravani, Functional Strength, Group Therapy, Gait, Safety, Therapeutic Exercise, Transfers Frequency: Modified Program (IRF) (02/05) Estimated Hrs Per Day: Other (02/05) Patient and/or Family Agrees t: Yes Safety Risks/Education Patient Education: Gait Training, Transfer Techniques, Correct Positioning, Safety Issues Teaching Recipient: Patient Teaching Methods: Demonstration, Discussion Response to Teaching: Verbalize Understanding, Return Demonstration, Reinforcement Needed educated pt. about LEs elevated vs in dependent position and that diuresing fluid off is good and may help many c/o Time/GCodes Time In: 1400 Time Out: 1430 Total Billed Treatment Time: 30 Total Billed Treatment 1,FA30m NITO CLINTON VARNISH MIXER Aug 10, 2019 14:34
--- NOTE | 2019-08-10 16:46 | NUR ---
Weekly Team Conference Met with patient and her son, Caleb Mccloud, to discuss weekly team conference. When this worker mentioned "discharge planning" the patient's son replied, "we are nowhere near that." Educated patient and her son that discharge planning begins on admission and that the therapy team continually monitors progress and collaborates with the patient and family regarding discharge process; both verbalized understanding. Discussed patient's continued reports of hemorrhoid pain, and the fact that the pain and frequent need to toilet is hindering her ability to fully participate with therapies. Patient fully agreed that her hemorrhoid pain is hindering her ability to fully participate with therapies. The patient's son mentioned that he talked to Dr. Waddell regarding the hemorrhoid pain and possible intervention. The patient's son reported Dr. Waddell mentioned a procedure he does at [facility]. Reviewed surgeon's progress note and this procedure is mentioned; however, patient was advised that surgical resection at this time would be extremely painful, worse than the pain she has now. Dr. Waddell recommended she wait until she gets out of the hospital and then have outpatient HET procedure. In the meantime Dr. Waddell has ordered lidocaine cream for the area and steroid suppositories to try and decrease the inflammation. Patient is willing to try this and wants to get the hemorrhoids fixed as soon as she is discharged from rehab. We also discussed patient's anxiety and inability to sleep. Patient reported she begins to panic and cannot "shut her brain off." Patient's son verbalized that the patient's anxiety is contributing to her inability to sleep, as well as hindering her ability to fully participate with therapies. Patient's son reported that the patient was given Xanax 0.25mg while at [facility] and that she was "snowed." Discussed possibility of patient trying a lower dose of Xanax, at least at bedtime, to assist with sleep. Patient's son encouraged patient to try the lower dose of Xanax at bedtime. Patient agreed. Dr. Blackwood notified and ordered Xanax 0.125mg Q4H PRN anxiety. Also discussed trying an air mattress as patient reported the current mattress is too hard. Asked RN to obtain an air mattress for patient. Behavioral health has been consulted and will evaluate patient tomorrow. Patient's son reported he is working on getting a hairdresser he knows to come to the hospital this weekend to work on untangling patient's hair. Patient and her son do not want anyone but the hairdresser to try to comb out patient's hair. Patient's son is also trying to get patient some shoes that will fit her as her feet are edematous. Patient also asking for a bone density scan to be done and requesting the "super" flu shot. Patient stated the flu shot would have to be approved by Dr. Birmingham due to her history of cancer treatment. Dr. Birmingham has been consulted but is not available until 08/17/19. Will discuss patient's requests with Dr. Blackwood. Patient and her son are also requesting a DPOA for healthcare decisions be completed while patient is on rehab unit. Will consult pastoral care for completion of DPOA. Tentative discharge date has been set for 08/18/19; however, will continue to monitor patient's progress. Patient and her son verbalized understanding.
[2019-08-10] MEDS: PHENAZOPYRIDINE 100 MG (PYRIDIUM) TABLET PO SCH (17:55)
[2019-08-10] MEDS: ALPRAZolam 0.25 MG (XANAX) TAB PO PRN (21:28)
[2019-08-10] MEDS: LIDOCAINE PATCH REMOVAL TP SCH (21:36)
[2019-08-10] MEDS: oxyCODONE/APAP 10/325MG (PERCOCET 10) TABLET PO PRN (23:52)
[2019-08-11] MEDS: RT-ALBUTEROL/IPRATROPIUM 3 ML (DUONEB) VIAL INH SCH ×7 (02:38→22:51)
[2019-08-11] MEDS: KCL 20 MEQ TAB (K-DUR) PO SCH (06:32)
[2019-08-11] MEDS: NITROFURANTOIN 100 MG (MACROBID) CAPSULE PO SCH (06:32)
[2019-08-11] MEDS: inSUlin ASPART (NovoLOG) 1 UNIT/0.01 ML (CHARGE PER UNIT) SC SCH ×4 (06:33→21:24)
[2019-08-11] MEDS: RT-ALBUTEROL/IPRATROPIUM 3 ML (DUONEB) VIAL INH PRN (08:32)
[2019-08-11 08:33] VITALS: BP 121/63
[2019-08-11] MEDS: DILTIAZEM 120 MG (CARDIZEM CD) CAP PO SCH (08:35)
[2019-08-11] MEDS: PHENAZOPYRIDINE 100 MG (PYRIDIUM) TABLET PO SCH ×2 (08:35→15:05)
[2019-08-11] MEDS: CEPHALEXIN 250 MG (KEFLEX) CAP PO SCH ×4 (08:36→21:18)
[2019-08-11] MEDS: LIDOCAINE 4% (SALONPAS) PATCH TOP SCH ×2 (08:36→11:43)
[2019-08-11] MEDS: FUROSEMIDE 40 MG (LASIX) TAB PO SCH (08:36)
[2019-08-11] MEDS: oxyCODONE/APAP 10/325MG (PERCOCET 10) TABLET PO PRN ×2 (08:38→22:25)
--- NOTE | 2019-08-11 08:44 | Progress Note - Surgery ---
ELEANOR REDD,MED STUDENT 08/11/19 0844: Subjective Date Seen by a Provider: Aug 11, 2019 Time Seen by a Provider: 08:30 Subjective/Events-last exam Patient continues to complain of severe pain associated with her hemorrhoids. She is on stool softeners and uses hemorrhoid cream and anusol suppositories which help. She states that she plans to transfer her care to [place], and hopes to have hemorrhoid energy therapy performed while there. Objective Exam Vital Signs Date Time Temp Pulse Resp B/P (MAP) Pulse Ox O2 Delivery O2 Flow Rate FiO2 08/11/19 08:18 95 Nasal Cannula 3.00 08/11/19 07:00 122 08/11/19 00:42 101 08/10/19 22:47 97 Nasal Cannula 4.00 08/10/19 21:00 Nasal Cannula 3.00 08/10/19 18:57 113 08/10/19 18:10 37.0 117 22 123/78 (93) 96 Nasal Cannula 4.00 08/10/19 13:00 118 08/10/19 11:40 36.2 109 91 32 08/10/19 09:00 Nasal Cannula 3.00 I & O 08/11/19 07:00 Intake Total 900 ml Output Total 600 ml Balance 300 ml Capillary Refill : Less Than 3 Seconds General Appearance: No Apparent Distress, WD/WN Respiratory: No Accessory Muscle Use, No Respiratory Distress Gastrointestinal: non tender, soft Extremity: Non Tender, Pedal Edema Neurologic/Psychiatric: Alert, Normal Mood/Affect Skin: Normal Color, Warm/Dry, Rash (left leg with mild erythema from cellulitis) Results Lab Laboratory Tests 08/10/19 11:55: Glucometer 178H 08/11/19 05:24: Glucometer 274H Microbiology 08/09/19 Urine Culture - Final, Complete NO GROWTH Assessment/Plan Assessment/Plan Assessment/Plan External Hemorrhoidal Skin Internal hemorrhoids Lidocaine cream and steroid suppositories are helping I recommend she wait until she is in [place] for HET procedure, as she would have more pain if she had surgical resection now. She is agreeable to this plan. Clinical Quality Measures DVT/VTE Risk/Contraindication: Risk Factor Score Per Nursin RFS Level Per Nursing on Admit: 4+=Very High MANJIT WADDELL DO 10/24/19 1811: Subjective Time Seen by a Provider: 11:36 Subjective/Events-last exam Pt seen and examined. Still complains of severe hemorrhoidal pain. Review of Systems General: No Chills, No Night Sweats Pulmonary: Dyspnea Cardiovascular: No: Chest Pain, Palpitations Assessment/Plan Assessment/Plan Assessment/Plan Will plan for HET once she gets to [facility]. Supervisory-Addendum Brief Verification & Attestation Participated in pt care: history, MDM, physical Personally performed: exam, history, MDM Care discussed with: Medical Student Procedures: n/a Verification and Attestation of Medical Student E/M Service A medical student performed and documented this service in my presence. I reviewed and verified all information documented by the medical student and made modifications to such information, when appropriate. I personally performed the physical exam and medical decision making. Manjit Waddell, Aug 11, 2019,18:11 ELEANOR REDD,MED STUDENT Aug 11, 2019 08:44 MANJIT WADDELL DO Aug 11, 2019 18:11
[2019-08-11] MEDS: POLYETHYLENE GLYCOL 17 GM (MIRALAX) PACK PO SCH ×3 (08:46→21:19)
[2019-08-11] MEDS: HYDROCORTISONE/PRAM 1% CREAM 30 GM TUBE TOP SCH ×2 (08:46→21:23)
[2019-08-11] MEDS: SENNA W/DOCUSATE (SENOKOT S) TABLET PO SCH ×2 (08:47→21:19)
--- NOTE | 2019-08-11 09:41 | PM&R Progress Note ---
Subjective HPI/CC On Admission Date Seen by Provider: Aug 11, 2019 Time Seen by Provider: 08:30 CC: T6 compression fracture s/p kyphoplasty Hospital course from med-surg: Ms. Mccloud presented to ER in exacerbation of COPD and respiratory distress, has seen pulmonology. She had recently been diagnosed with lung cancer, is DNR do not intubate. During initial management of COPD exacerbation was found to be in Afib with RVR, heart rate of 170s, has seen cardiology. She also had been experiencing back pain, was found to have T6 compression fracture and underwent kyphoplasty. She continues to have back pain. Noted to have confusion and sundowning, also reports having insomnia. When seen today she reports feeling well overall, she reports her breathing is better now than it had been prior to admission. Her only complaint is of leg weakness. She still has a lopez catheter in due to concerns about her legs being too weak to make it to a toilet in time. She will be discharged to IRF. [facility] Hospital Course: Pt had a lengthy hospital course for two weeks. She was admitted for respiratory insufficiency placed on bi-PAP and pneumonia with history of lung cancer just diagnosed by Dr. Birmingham and Dr. De La Cruz. Compression fracture required kyphoplasty but she had multiple ICU transfers due to worsen ing respiratory status and encephalopathy so she was very weakened but breathing better at time of DC and back on baseline at 3 liters of O2. PT and OT orders placed and she was deemed stable for DC to inpatient rehab where she will begin her recovery and be able to undergo lung cancer treatment. Currently she is just finished up with her shower with occupational therapy. She is refusing the Geodon injections and she denies taking any major psych meds as an outpatient. Melatonin will be ordered to help with her chronic insomnia. Left leg improved with the Keflex for venous stasis dermatitis with cellulitis. Ravi wraps will be initiated for lower extremity edema considering volume overload from aggressive IV fluids upstairs on MedSurg caused fluid to go into soft tissue. We will discontinue the Lopez catheter. Anxiety will be managed also. Dr. Waddell is managing the hemorrhoid and we have consulted him and I appreciate his help. Her bowels are actually a little bit loose. Subjective/Events-last exam Hemorrhoid is causing significant difficulties. Legs are wrapped with RAVI wraps. Telemetry shows normal sinus rhythm. Psych eval will be performed today. Pyridium is helping urination. Overall extremely complicated and difficult to motivate to maintain therapy but will try to do everything we can to help this patient. Conferred with RN Reviewed therapy notes Checked meds and labs Review of Systems General: Fatigue Gastrointestinal: Other (hemorrhoid pain) Objective Exam Vital Signs Vital Signs Date Time Temp Pulse Resp B/P (MAP) Pulse Ox O2 Delivery O2 Flow Rate FiO2 08/11/19 19:01 113 08/11/19 18:45 94 Nasal Cannula 3.00 08/11/19 18:03 37.2 22 124/75 (91) 08/10/19 11:40 32 Capillary Refill : Less Than 3 Seconds General Appearance: No Apparent Distress, WD/WN, Chronically ill HEENT: PERRL/EOMI, Normal ENT Inspection, Pharynx Normal Neck: Full Range of Motion, Normal Inspection, Non Tender, Supple Respiratory: Chest Non Tender, Lungs Clear, Normal Breath Sounds, No Accessory Muscle Use, No Respiratory Distress Cardiovascular: Regular Rate, Rhythm, No Edema, No Gallop, No JVD, No Murmur, Normal Peripheral Pulses Gastrointestinal: Normal Bowel Sounds, No Organomegaly, No Pulsatile Mass, Non Tender, Soft Back: Normal Inspection, No CVA Tenderness, No Vertebral Tenderness Extremity: Non Tender, Pedal Edema Neurologic/Psychiatric: Alert, Oriented x3, No Motor/Sensory Deficits, Normal Mood/Affect, linux server administrator II-XII Norm as Tested Skin: Normal Color, Warm/Dry, Rash (left leg with mild erythema from cellulitis) Results/Procedures Lab Patient resulted labs reviewed. FIM Transfers Therapy Code Descriptions/Definitions Functional [place] Measure: 0=Not Assessed/NA 4=Minimal Assistance 1=Total Assistance 5=Supervision or Setup 2=Maximal Assistance 6=Modified [place] 3=Moderate Assistance 7=Complete IndependenceSCALE: Activities may be completed with or without assistive devices. 3-Brwxokvenk-blbdrhd completes the activity by him/herself with no assistance from a helper. 5-Set-up or Clean-up Assistance-helper sets up or cleans up; patient completes activity. [place] assists only prior to or following the activity. 4-Supervision or Touching Assistance-helper provides verbal cues and/or touching/steadying and/or contact guard assistance as patient completes activity. Assistance may be provided throughout the activity or intermittently. 3-Partial/Moderate Assistance-helper does LESS THAN HALF the effort. [place] lifts, holds or supports trunk or limbs, but provides less than half the effort. 2-Substantial/Maximal Assistance-helper does MORE THAN HALF the effort. [place] lifts or holds trunk or limbs and provides more than half the effort. 7-Sxpjfbrli-gzhnix does ALL the effort. Patient does none of the effort to complete the activity. Or, the assistance of 2 or more helpers is required for the patient to complete the activity. If activity was not attempted, code reason: 7-Patient Refused. 9-Not Applicable-not attempted and the patient did not perform the activity before the current illness, exacerbation or injury. 10-Not Attempted due to Environmental Limitations-(lack of equipment, weather restraints, etc.). 88-Not Attempted due to Medical Conditions or Safety Concerns. Transfers (B, C, W/C) (FIM): 4 Roll Left to Right (QC): 3 Sit to Lying (QC): 3 Sit to Stand (QC): 3 Chair/Yjt-ew-Vcsrr Xfer(QC): 4 Car Transfer (QC): 88 (hemerrhoid pain limits at this time. ) Gait Training Does the Patient Walk?: Yes Gait (FIM): 4 Distance (FIM): 1=up to 49 ft Walk 10 feet (QC): 4 Walk 50 ft with 2 Turns(QC): 88 Walk 150 ft (QC): 88 Walking 10ft/uneven surface-QC: 88 Gait Persons Needed: 1 Gait Assistive Device: FWW Wheelchair Training Does the Pt Use a Wheelchair?: Yes Wheelchair Distance: 1=up to 49 ft Wheel 50 ft with 2 turns (QC): 3 Wheel 150 ft (QC): 88 Type of Wheelchair: Manual Stair Training 1 Step (curb) (QC): 88 (pt unable to safely perform or attempt) 4 Steps (QC): 88 12 Steps (QC): 88 Balance Picking up an Object (QC): 88 (contraindicated with recent kyphoplasty) ADL-Treatment Eating (QC): 6 (Pt able to complete own set up and uses regular utensils to eat.) Oral Hygiene (QC): 7 Bathing Location: L Arm, R Arm, L Upper Leg, R Upper Leg, Chest, Abdomen, Buttocks (leaned side to side), Perineal Area Shower/Bathe Self (QC): 3 Upper Body Dressing (QC): 7 Lower Body Dressing (QC): 2 (Footwear (QC) 2) On/Off Footwear (QC): 2 Toileting Hygiene (QC): 2 (Pt able to manage pants down, but required assistance managing pants and with hygiene.) Toilet Transfer (QC): 3 (Pt was able to sit on toilet with CGA, requiring min A to stand from toilet.) Assessment/Plan Assessment and Plan Assess & Plan/Chief Complaint Assessment: T6 compression fracture pathological either osteoporosis or lung cancer status post kyphoplasty uncomplicated Acute on chronic respiratory failure requiring 14 days of [facility] hospital course COPD Former smoker History of acute renal failure Severe anxiety Emotional mental problems Anemia Hypertension tqs-bp-sonxbae Severe debility Lopez catheter in place Severe weakness Left lower extremity cellulitis placed on Keflex Severe lower extremity edema ordered Ravi wraps Hemorrhoids [facility]: [facility] protocol Complete Keflex Wide Ravi wraps Hemorrhoid treatment (1) Compression fracture of T6 vertebra Status: Acute (2) COPD (chronic obstructive pulmonary disease) Status: Chronic (3) Constipation Status: Acute (4) Lung mass (5) Lung cancer Status: Chronic (6) Altered mental status Status: Resolved Resolution Date/Time: 08/05/19 @ 16:39 (7) Leg edema Status: Acute (8) Acidosis Status: Acute (9) Acute on chronic respiratory failure Status: Acute (10) Acute renal failure Status: Acute (11) Anxiety Status: Acute (12) Elevated troponin Status: Acute (13) Elevation of cardiac enzymes Status: Acute (14) Sinus tachycardia Status: Acute (15) UTI (urinary tract infection) Status: Acute (16) Uncontrolled hypertension Status: Acute (17) Edema (18) Left leg cellulitis (19) Venous stasis dermatitis (20) Insomnia CHARLY HEIN DO Aug 11, 2019 09:41
--- NOTE | 2019-08-11 10:13 | NUR ---
Notified by pharmacy that the hospital does not carry the flu shot the patient is requesting. Will notify patient.
--- NOTE | 2019-08-11 10:14 | NUR ---
Discussed patient's requests with Dr. Blackwood. Patient will need to complete her rehab stay and then follow up with Dr. Waddell as an outpatient for hemorrhoid procedure. Patient will also have to have bone density study as an outpatient.
--- NOTE | 2019-08-11 10:17 | NUR ---
Pastoral care consult ordered for completion of DPOA.
--- NOTE | 2019-08-11 10:26 | NUR ---
Reviewed patient's medical record. Patient had a nuclear medicine-bone scan whole body performed on 05/11/19 at [facility], ordered by Dmitri Rashid APRN. Copy of radiology report placed in patient's chart.
--- NOTE | 2019-08-11 10:49 | Occupational Ther Daily Note ---
OT Current Status-Daily Note Subjective Pt alert, sitting in recliner. Pt agrees to therapy. Pt states that she is waiting on pain pills, nrsg brought in. Pt c/o hemorrhoid pain throughout therapy. Mental Status/Objective Patient Orientation: Person, Place, Time, Situation Attachments: Central Line, Oxygen ADL-Treatment OT/PT co-treat, skills of 2 therapist need for skilled instruction, decreased activity tolerance and mobility. PT focused on LE strengthening, transfers and standing. OT focused on ADLs and functional transfers. Pt anxious about hemorrhoids, hair and getting exhausted for afternoon treatment. CGA for sit to stand and functional transfers. Pt completed bathing with SBA using shower bench, grabbars and hand held showers. Due to time constraints, unable to work on AE for lower body dressing or oral care. Assist to thread feet into briefs then pt able to hike pants over hips with CGA. Assist to don/doff socks over feet and wrap LE's with wide MARLON wrap due to edema. After therapy, pt sitting in recliner with call light/phone in reach. All needs met in room. Therapy Code Descriptions/Definitions Functional [place] Measure: 0=Not Assessed/NA 4=Minimal Assistance 1=Total Assistance 5=Supervision or Setup 2=Maximal Assistance 6=Modified [place] 3=Moderate Assistance 7=Complete IndependenceSCALE: Activities may be completed with or without assistive devices. 9-Kxzxhyxtlz-xfohaez completes the activity by him/herself with no assistance from a helper. 5-Set-up or Clean-up Assistance-helper sets up or cleans up; patient completes activity. [place] assists only prior to or following the activity. 4-Supervision or Touching Assistance-helper provides verbal cues and/or touching/steadying and/or contact guard assistance as patient completes activity. Assistance may be provided throughout the activity or intermittently. 3-Partial/Moderate Assistance-helper does LESS THAN HALF the effort. [place] lift s, holds or supports trunk or limbs, but provides less than half the effort. 2-Substantial/Maximal Assistance-helper does MORE THAN HALF the effort. [place] lifts or holds trunk or limbs and provides more than half the effort. 2-Ihtmrqndn-tthzln does ALL the effort. Patient does none of the effort to complete the activity. Or, the assistance of 2 or more helpers is required for the patient to complete the activity. If activity was not attempted, code reason: 7-Patient Refused. 9-Not Applicable-not attempted and the patient did not perform the activity before the current illness, exacerbation or injury. 10-Not Attempted due to Environmental Limitations-(lack of equipment, weather restraints, etc.). 88-Not Attempted due to Medical Conditions or Safety Concerns. OT Short Term Goals Short Term Goals Time Frame: Aug 15, 2019 Eating(FIM): 5 Grooming(FIM): 5 Bathing(FIM): 3 Upper Body Dressing(FIM): 4 Lower Body Dressing(FIM): 3 Toileting(FIM): 3 Transfers (B,C,W/C) (FIM): 4 Toilet/Commode Transfer(FIM): 4 Shower Transfer(FIM): 4 Additional Short Term Goals: 1-Demonstrate ADL Tasks, 2-Verbalize Understanding, 3-ImproveStrength/Sravani 1=Demonstrate adherence to instructed precautions during ADL tasks. 2=Patient will verbalize/demonstrate understanding of assistive devices/modifications for ADL. 3=Patient will improve strength/tolerance for activity to enable patient to perform ADL's. OT Penitentiary Goals Penitentiary Goals Time Frame: Aug 22, 2019 Eating (QC): 6 Oral Hygiene (QC): 6 Shower/Bathe Self (QC): 4 Upper Body Dressing (QC): 6 Lower Body Dressing (QC): 6 On/Off Footwear (QC): 6 Toileting Hygiene (QC): 6 Toilet/Commode Transfer (QC): 6 Additional Goals: 1-Demonstrate ADL Tasks, 2-Verbalize Understanding, 3- ImproveStrength/Sravani 1=Demonstrate adherence to instructed precautions during ADL tasks. 2=Patient will verbalize/demonstrate understanding of assistive devices/modifications for ADL. 3=Patient will improve strength/tolerance for activity to enable patient to perform ADL's. OT Education/Plan Problem List/Assessment Assessment: Decreased Activ Tolerance, Decreased UE Strength, Impaired Coordination, Impaired Funct Balance, Impaired Self-Care Skills Discharge Recommendations Plan/Recommendations: Continue POC Treatment Plan/Plan of Care Patient would benefit from OT for education, treatment and training to promote independence in ADL's, mobility, safety and/or upper extremity function for ADL's. Plan of Care: ADL Retraining, Functional Mobility, Group Exercise/Act as Ind, UE Funct Exercise/Act Treatment Duration: Aug 22, 2019 Frequency: At least 5 of 7 days/Wk (IRF) Estimated Hrs Per Day: 1.5 hours per day Agreement: Yes Rehab Potential: Fair Time/GCodes Start Time: 08:30 Stop Time: 10:20 Total Time Billed (hr/min): 110 Billed Treatment Time 1 visit-FA 2 (30 min) ADLs 5 (80 min) co-treat with PT 30 min CARINA SCHMIDT Aug 11, 2019 10:49
--- NOTE | 2019-08-11 11:11 | Progress Note - Urology ---
Progress Note-Urology Progress Notes/Assess & Plan Progress/Assessment & Plan VOIDING WELL, EMPTIES WELL. NO VOIDING ISSUES Final Diagnosis URINE RETENTION RUSSELL CRUZ MD Aug 11, 2019 11:11
--- NOTE | 2019-08-11 12:16 | Physical Therapy Daily Note ---
PT Daily Note-Current Subjective Pt sitting recliner upon arrival. Pt agrees to PT but reports discomfort for hemorrhoids. Pain Numeric Pain Scale: 5-Moderate Pain Pain Description: Pressure, Throbbing Comment: Pt reports pain from hemorrhoids. Mental Status Patient Orientation: Person, Place, Situation Transfers SCALE: Activities may be completed with or without assistive devices. 2-Axpducewtv-adchmnl completes the activity by him/herself with no assistance from a helper. 5-Set-up or Clean-up Assistance-helper sets up or cleans up; patient completes activity. [place] assists only prior to or following the activity. 4-Supervision or Touching Assistance-helper provides verbal cues and/or touching/steadying and/or contact guard assistance as patient completes activity. Assistance may be provided throughout the activity or intermittently. 3-Partial/Moderate Assistance-helper does LESS THAN HALF the effort. [place] lifts, holds or supports trunk or limbs, but provides less than half the effort. 2-Substantial/Maximal Assistance-helper does MORE THAN HALF the effort. [place] lifts or holds trunk or limbs and provides more than half the effort. 2-Snyzkmtkq-kczsjx does ALL the effort. Patient does none of the effort to complete the activity. Or, the assistance of 2 or more helpers is required for the patient to complete the activity. If activity was not attempted, code reason: 7-Patient Refused. 9-Not Applicable-not attempted and the patient did not perform the activity before the current illness, exacerbation or injury. 10-Not Attempted due to Environmental Limitations-(lack of equipment, weather restraints, etc.). 88-Not Attempted due to Medical Conditions or Safety Concerns. Sit to Stand (QC): 4 Weight Bearing Right Lower Extremity: Right Weight Bearing/Tolerated Left Lower Extremity: Left Weight Bearing/Tolerated Exercises Seated Therapy Exercises: Ankle pumps, Sit to stand (5 reps), Long arc quads, Hip flexion, Kicking activity, Hamstring Curls Seated Reps: 15 Treatments OT/PT co-treat, skills of 2 therapist need for skilled instruction, decreased activity tolerance and mobility. PT focused on LE strengthening, transfers and standing. OT focused on ADLs and functional transfers. Pt anxious about hemorrhoids, hair and getting exhausted for afternoon treatment. CGA for sit to stand and functional transfers. After therapy, pt sitting in recliner with call light/phone in reach. All needs met in room. OT will continue to work with pt. Assessment Current Status: Fair Progress Pt preoccupied with pain from hemorrhoids. PT Tracer Powder Blender Goals Tracer Powder Blender Goals PT Alf Goals Time Frame: Aug 24, 2019 Sit to Lying (QC): 6 Lying-Sitting on Side/Bed(QC): 6 Sit to Stand (QC): 6 Roll Left to Right (QC): 6 Chair/Vnt-zz-Qjpcj Xfer(QC): 6 Car Transfer (QC): 6 Does the Patient Walk: Yes Walk 10 feet (QC): 6 Walk 10ft-Uneven Surface(QC): 6 Walk 50ft with 2 Turns (QC): 6 Walk 150 ft (QC): 6 Wheel 50 feet with 2 turns (QC: 9 1 Step (curb) (QC): 6 4 Steps (QC): 6 12 Steps (QC): 9 Picking up an Object (QC): 88 PT Plan Problem List Problem List: Activity Tolerance, Functional Strength, Safety, Balance, Gait, Transfer Treatment/Plan Treatment Plan: Continue Plan of Care Treatment Plan: Bed Mobility, Education, Functional Activity Sravani, Functional Strength, Group Therapy, Gait, Safety, Therapeutic Exercise, Transfers Treatment Duration: Aug 11, 2019 Frequency: Modified Program (IRF) (02/05) Estimated Hrs Per Day: Other (02/05) Patient and/or Family Agrees t: Yes Safety Risks/Education Patient Education: Gait Training, Transfer Techniques, Correct Positioning, Safety Issues Teaching Recipient: Patient Teaching Methods: Discussion Response to Teaching: Verbalize Understanding Time/GCodes Time In: 815 Time Out: 900 Total Billed Treatment Time: 45 Total Billed Treatment 1, EX x2 (25m) & FA (20m) Co-treat with OT 830-900 (30m) ELEANOR ELIZABETH CRANE CHASER Aug 11, 2019 12:16
--- NOTE | 2019-08-11 12:45 | Behavioral Health Consult ---
Consult- Consult Date Seen by Provider: Aug 11, 2019 Time Seen by Provider: 10:20 Date: 08/11/19 CPT Code: 69397 Psychodiagnostic Examination, 28218 +Interactive Complexity, 1 unit(s) Start Time: 10:20 am Stop Time: 10:55 am Chief Complaint: anxiety Referral: Ivonne Mccloud is a 69-year-old, , female referred by Dr. Blackwood for a clinical diagnostic assessment. Information for this evaluation was gathered from self-report and medical records. Presenting Problem: The presenting clinical problem is anxiety. Ivonne reported she thinks she is doing well considering everything. She stated she is tired and she almost went to sleep several times during the meeting. She reported she took Xanax and melatonin last night to help with sleep and that did help her. She stated at home she would occasionally take over the counter medication to help her sleep but does not like doing that. She stated she has insomnia and has since high school. She reported she typically gets two to three hours of sleep at night and naps during the day. She stated she is not a morning person. She stated she is anxious about her health issues but does not think she is as anxious as others say. She reported she is not a worry wart. She stated she does not have anything to compare mental health to other than her ewnpargv-yd-rsc and she does not want to be like her. She reported she feels angry a lot of the time. She did acknowledge some depression but seems to try to block her emotions. She reported she has lost her father, mother, and sister. She reported her mother in 2013 and her sister in 2014. 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 She reported after that she moved to [place], [place] and shortly after she was diagnosed with lung cancer. She stated she is concerned about her medication as some of it she has been on for 25 to 30 years and does not know if she should still be on it. She reported she does not understand what all happened with her medically during the past couple of weeks and that makes her angry and anxious. Overall symptoms observed or reported requiring current level of care include anergia, anger, anxiety, attention/concentration deficits, depressed mood, familial stress/strain, grief, insomnia, medical problems, and worry. Therapist talked with Jaylin, who provided information about patients history and current status. Observations/Mental Status: Ivonne was sitting in a chair wearing a hospital gown when therapist arrived. Ivonne appeared to be an adequate historian. Observed gait and gross motor movements indicated facial signs of discomfort and a reliance on mechanical assistance (i.e.,walker, wheelchair). In regards to pain, reported pain associated with her medical problems. Cosme general approach to the evaluation was cooperative. Orientation was intact for person, place, time, and situation. Ivonne evidenced good understanding of the reason for the appointment. Cosme in-session behavior was cooperative. The predominant mood was anxious with affect appropriate to expressed concerns and presenting problem. Immediate attention and concentration appeared variable. Memory functioning appeared to be intact. Level of intellectual functioning compared to same age peers was estimated to be in the average range. Thought processes were found to be tangential and required some redirection and control. Thought content appeared normal. There was no report or evidence of hallucinations or delusions. Psychomotor functioning was within normal limits. Tone of voice was normal and controlled. Expressive speech was marked by fluent speech and language. Eye contact was good. Insight was average. Overall, style of interacting during the appointment was appropriate and motivated. Current/Previous Mental Health Treatment: Past psychiatric history was reported as none. History of self or other harm: none reported. Medical History: Medical conditions were reported as COPD, T6 compression fracture, hemorrhoids, and diagnosed with lung cancer in 2017. Drug allergies: Penicillins and levofloxacin. Educational and Vocational Histories: Ivonne is retired. Family and Social Histories: Ivonne currently lives by herself in [place], [place]. She reported she moved to [place], [place] in 2017 to live with her oldest son. She stated she recently moved into her own place in [place]. She reported she was born in [place] and lived most of her life in [place]. She reported she moved because of problems with her pmlbzrhq-jg-iuy. She stated she has another son that is awaiting a shelter sentence for drug charges. She reported daughter has drug abuse problems. Initial Treatment Plan: The anticipated long-term goal(s) include: acknowledge the depression verbally and resolve its causes, leading to normalization of the emotional state; complete a medication evaluation; and implement positive self- talk to reduce or eliminate the anxiety. The recommendations at this time include the following: individual outpatient psychotherapy and medical/medication consultation with family physician. Ivonne is recommended to return within one week for follow-up. Further disposition will be made at that time. Ivonne verbalized understanding of these recommendations and an intention to comply with the proposed treatment plan and course of treatment. Strengths/Weaknesses: Strengths/Resources: supportive family Liabilities/Barriers: limited support network, health problems, and multiple life stressors Summary of Assessment Information/Recommendations: Ivonne is a 69-year-old female with history of lung cancer, T6 compression fracture and COPD. She denies any previous mental health problems or treatment. She did report that she has been angry following the deaths of her mother and sister and her diagnosis of lung cancer. Therapist provided information about how depression and anxiety may p resent as anger especially since she reported she is trying to block all of her emotions. Following current assessment, presenting problem and symptoms appear consistent with a preliminary diagnosis of F43.23 Adjustment Disorder with Mixed Anxiety and Depressed Mood. Current emotional symptoms are of moderate intensity. Overall, prognosis is estimated to be fair. 1. It is recommended that she participate in outpatient psychotherapy. She reported she is unsure about this but will think about it. She is agreeable to therapist meeting with her next week while she is on ACU. 2. It is recommended that she be evaluated for medication to address depression and anxiety. She stated she is extremely hesitant to try medication but will consider it. 3. It is recommended that she be informed as to what all she has been through medically through the past few weeks as her not knowing seems to be a source of her anxiety and anger. ICD-10 Diagnostic Impressions: F43.23 Adjustment Disorder with Mixed Anxiety and Depressed Mood Rule Out: Major Depressive Disorder ROCIO DUNNE Aug 11, 2019 12:45
[2019-08-11] MEDS: ENOXAPARIN 40 MG/0.4 ML (LOVENOX) SYR SQ SCH (15:05)
--- NOTE | 2019-08-11 16:02 | NUR ---
Rec'd orders from Dr. Jay to stop Macrodantin & Pyridium after notified of pt report of nausea. Pt believes that the nausea may be caused by these 2 new meds.
--- NOTE | 2019-08-11 16:19 | Physical Therapy Daily Note ---
PT Daily Note-Current Subjective Pt sitting in recliner working on detangling hair upon arrival. Pt agrees to PT. Pt asks a couple of questions about health matters at start of Rx. Pain Numeric Pain Scale: 5-Moderate Pain Pain Description: Throbbing Comment: Hemorrhoid pain continues. Mental Status Patient Orientation: Person, Place, Situation Transfers SCALE: Activities may be completed with or without assistive devices. 9-Hxrqfuyxmy-tbjwfxp completes the activity by him/herself with no assistance from a helper. 5-Set-up or Clean-up Assistance-helper sets up or cleans up; patient completes activity. [place] assists only prior to or following the activity. 4-Supervision or Touching Assistance-helper provides verbal cues and/or touching/steadying and/or contact guard assistance as patient completes activity. Assistance may be provided throughout the activity or intermittently. 3-Partial/Moderate Assistance-helper does LESS THAN HALF the effort. [place] lifts, holds or supports trunk or limbs, but provides less than half the effort. 2-Substantial/Maximal Assistance-helper does MORE THAN HALF the effort. [place] lifts or holds trunk or limbs and provides more than half the effort. 7-Dymhmwbkx-mkesbb does ALL the effort. Patient does none of the effort to complete the activity. Or, the assistance of 2 or more helpers is required for the patient to complete the activity. If activity was not attempted, code reason: 7-Patient Refused. 9-Not Applicable-not attempted and the patient did not perform the activity before the current illness, exacerbation or injury. 10-Not Attempted due to Environmental Limitations-(lack of equipment, weather restraints, etc.). 88-Not Attempted due to Medical Conditions or Safety Concerns. Weight Bearing Right Lower Extremity: Right Weight Bearing/Tolerated Left Lower Extremity: Left Weight Bearing/Tolerated Exercises Seated Therapy Exercises: Ankle pumps, Long arc quads, Hip flexion, Kicking activity, Hamstring Curls Seated Reps: 20 Treatments Pt completes Seated EX with RB as needed. PLC ENGINEER assists pt to find out answers to health questions she would like address for less anxiety. Assessment Current Status: Fair Progress Pt gets very anxious in regards to getting Flu shot as well as possibility of having hemorrhoids taken care while on ARU stay. After consulting with DAGO Mosqueda/SW. Pt is advised and seems to be satisfied with information given. PT Repair Specialist Goals Repair Specialist Goals PT [facility] Goals Time Frame: Aug 24, 2019 Sit to Lying (QC): 6 Lying-Sitting on Side/Bed(QC): 6 Sit to Stand (QC): 6 Roll Left to Right (QC): 6 Chair/Fsp-ir-Jirks Xfer(QC): 6 Car Transfer (QC): 6 Does the Patient Walk: Yes Walk 10 feet (QC): 6 Walk 10ft-Uneven Surface(QC): 6 Walk 50ft with 2 Turns (QC): 6 Walk 150 ft (QC): 6 Wheel 50 feet with 2 turns (QC: 9 1 Step (curb) (QC): 6 4 Steps (QC): 6 12 Steps (QC): 9 Picking up an Object (QC): 88 PT Plan Problem List Problem List: Activity Tolerance, Functional Strength, Safety, Gait, Transfer Treatment/Plan Treatment Plan: Continue Plan of Care Treatment Plan: Bed Mobility, Education, Functional Activity Sravani, Functional Strength, Group Therapy, Gait, Safety, Therapeutic Exercise, Transfers Treatment Duration: Aug 11, 2019 Frequency: Modified Program (IRF) (02/05) Estimated Hrs Per Day: Other (02/05) Patient and/or Family Agrees t: Yes Safety Risks/Education Patient Education: Transfer Techniques, Correct Positioning, Disease Process, Safety Issues Teaching Recipient: Patient Teaching Methods: Discussion Response to Teaching: Verbalize Understanding Time/GCodes Time In: 1250 Time Out: 1315 Total Billed Treatment Time: 25 Total Billed Treatment 1, Ex (15m) & FA (10m) ELEANOR ELIZABETH PLC ENGINEER Aug 11, 2019 16:19
[2019-08-11] MEDS: ACETAMINOPHEN 325 MG TABLET PO PRN (16:46)
--- NOTE | 2019-08-11 16:47 | NUR ---
Pt talking w son in room. Requesting to have a Bone Density Scan sometime before discharge.
[2019-08-11 18:03] VITALS: BP 124/75
[2019-08-11] MEDS: MELATONIN 3 MG TABLET PO PRN (21:18)
[2019-08-11] MEDS: LIDOCAINE PATCH REMOVAL TP SCH (21:19)
[2019-08-11] MEDS: ALPRAZolam 0.25 MG (XANAX) TAB PO PRN (21:20)
[2019-08-12] MEDS: oxyCODONE/APAP 10/325MG (PERCOCET 10) TABLET PO PRN ×3 (02:47→21:44)
[2019-08-12] MEDS: RT-ALBUTEROL/IPRATROPIUM 3 ML (DUONEB) VIAL INH SCH ×6 (02:55→21:56)
--- NOTE | 2019-08-12 04:30 | NUR ---
radioactivity technician reported pt's heart rate 190's, telemetry showing sinus tach. Patient denies any complaints. Vitals BP 123/79, HR 193, O2sat 95% on 3 L. This rhythm remains persistent. PRN Lopressor 5 mg IV pushed slowly, while monitoring BP and HR. New vitals BP 105/70, HR 80. radioactivity technician reports sinus rhythm 80s-90's. Will continue to monitor.
[2019-08-12] MEDS: inSUlin ASPART (NovoLOG) 1 UNIT/0.01 ML (CHARGE PER UNIT) SC SCH ×4 (06:49→21:51)
[2019-08-12] MEDS: KCL 20 MEQ TAB (K-DUR) PO SCH (06:49)
--- NOTE | 2019-08-12 08:27 | Occupational Ther Daily Note ---
OT Current Status-Daily Note Subjective Pt alert, in bathroom. Pt agrees to therapy. C/o hemorrhoid pain and itching on plantar side of R foot, pain on 4th R toe, and pain on L lower leg (redness in same area). Reported this to nrsg and left Ravi wrap off of L lower leg for physician to look at. Mental Status/Objective Patient Orientation: Person, Place, Time, Situation Attachments: Central Line ADL-Treatment Declined shower today. Pt required assist to thoroughly wipe after small BM and urination. Pt hiked pants up/down over hips with CGA. Pt ambulated using FWW to sink to complete oral care and wash hands, independent. Pt then ambulated back to chair and completed own meal set up and uses regular utensils to eat. Instructed pt on using AE to don/doff socks and pants. Pt verbalized understanding but did not attempt to use. Unwrapped and cleansed B feet then rewrapped R foot with wide Ravi wrap. Pt takes increased time to complete all tasks. After therapy, pt sitting in recliner with call light/phone in reach. All needs met in room. Therapy Code Descriptions/Definitions Functional [place] Measure: 0=Not Assessed/NA 4=Minimal Assistance 1=Total Assistance 5=Supervision or Setup 2=Maximal Assistance 6=Modified [place] 3=Moderate Assistance 7=Complete IndependenceSCALE: Activities may be completed with or without assistive devices. 7-Rjixzijkbd-wcvckwp completes the activity by him/herself with no assistance from a helper. 5-Set-up or Clean-up Assistance-helper sets up or cleans up; patient completes activity. [place] assists only prior to or following the activity. 4-Supervision or Touching Assistance-helper provides verbal cues and/or touching/steadying and/or contact guard assistance as patient completes activity. Assistance may be provided throughout the activity or intermittently. 3-Partial/Moderate Assistance-helper does LESS THAN HALF the effort. [place] lifts, holds or supports trunk or limbs, but provides less than half the effort. 2-Substantial/Maximal Assistance-helper does MORE THAN HALF the effort. [place] lifts or holds trunk or limbs and provides more than half the effort. 1-Skxxkjasg-bguqrs does ALL the effort. Patient does none of the effort to complete the activity. Or, the assistance of 2 or more helpers is required for the patient to complete the activity. If activity was not attempted, code reason: 7-Patient Refused. 9-Not Applicable-not attempted and the patient did not perform the activity before the current illness, exacerbation or injury. 10-Not Attempted due to Environmental Limitations-(lack of equipment, weather restraints, etc.). 88-Not Attempted due to Medical Conditions or Safety Concerns. Eating (QC): 6 Oral Hygiene (QC): 6 Toileting Hygiene (QC): 3 Toilet Transfer (QC): 5 OT Short Term Goals Short Term Goals Time Frame: Aug 15, 2019 Eating(FIM): 5 Grooming(FIM): 5 Bathing(FIM): 3 Upper Body Dressing(FIM): 4 Lower Body Dressing(FIM): 3 Toileting(FIM): 3 Transfers (B,C,W/C) (FIM): 4 Toilet/Commode Transfer(FIM): 4 Shower Transfer(FIM): 4 Additional Short Term Goals: 1-Demonstrate ADL Tasks, 2-Verbalize Understanding, 3-ImproveStrength/Sravani 1=Demonstrate adherence to instructed precautions during ADL tasks. 2=Patient will verbalize/demonstrate understanding of assistive devices/modifications for ADL. 3=Patient will improve strength/tolerance for activity to enable patient to pe rform ADL's. OT Chcf Goals Chcf Goals Time Frame: Aug 22, 2019 Eating (QC): 6 Oral Hygiene (QC): 6 Shower/Bathe Self (QC): 4 Upper Body Dressing (QC): 6 Lower Body Dressing (QC): 6 On/Off Footwear (QC): 6 Toileting Hygiene (QC): 6 Toilet/Commode Transfer (QC): 6 Additional Goals: 1-Demonstrate ADL Tasks, 2-Verbalize Understanding, 3- ImproveStrength/Sravani 1=Demonstrate adherence to instructed precautions during ADL tasks. 2=Patient will verbalize/demonstrate understanding of assistive devices/modifications for ADL. 3=Patient will improve strength/tolerance for activity to enable patient to perform ADL's. OT Education/Plan Problem List/Assessment Assessment: Decreased Activ Tolerance, Impaired Self-Care Skills Discharge Recommendations Plan/Recommendations: Continue POC Treatment Plan/Plan of Care Patient would benefit from OT for education, treatment and training to promote independence in ADL's, mobility, safety and/or upper extremity function for ADL's. Plan of Care: ADL Retraining, Functional Mobility, Group Exercise/Act as Ind, UE Funct Exercise/Act Treatment Duration: Aug 22, 2019 Frequency: At least 5 of 7 days/Wk (IRF) Estimated Hrs Per Day: 1.5 hours per day Agreement: Yes Rehab Potential: Fair Time/GCodes Start Time: 07:00 Stop Time: 08:00 Total Time Billed (hr/min): 60 Billed Treatment Time 1 visit-ADL 4 (60 min) CARINA SCHMIDT Aug 12, 2019 08:27
--- NOTE | 2019-08-12 08:57 | Physical Therapy Daily Note ---
PT Daily Note-Current Subjective Pt. agrees to Rx but does interrupt often to review subjects that really are not part of the real picture of her situation. Pt. states she has hemorrhoidectomy scheduled in [place] and she has to have hemorrhoids taken care of even if she dies during the procedure. Pt. possibly avoiding therapt, Goals and focus was reviewed Pain Numeric Pain Scale: 8 Location: Posterior Location Body Site: Sacrum Pain Description: Stabbing Comment: hemorrhoid pain "attacks" x 4 during Rx. Mental Status Patient Orientation: Person, Place, Time, Situation pt. continues to appear anxious and diverts from realistic focus Transfers SCALE: Activities may be completed with or without assistive devices. 7-Qhdcswpfho-drootak completes the activity by him/herself with no assistance from a helper. 5-Set-up or Clean-up Assistance-helper sets up or cleans up; patient completes activity. [place] assists only prior to or following the activity. 4-Supervision or Touching Assistance-helper provides verbal cues and/or touching/steadying and/or contact guard assistance as patient completes activity. Assistance may be provided throughout the activity or intermittently. 3-Partial/Moderate Assistance-helper does LESS THAN HALF the effort. [place] lifts, holds or supports trunk or limbs, but provides less than half the effort. 2-Substantial/Maximal Assistance-helper does MORE THAN HALF the effort. [place] lifts or holds trunk or limbs and provides more than half the effort. 8-Acdzkzmzi-eweung does ALL the effort. Patient does none of the effort to complete the activity. Or, the assistance of 2 or more helpers is required for the patient to complete the activity. If activity was not attempted, code reason: 7-Patient Refused. 9-Not Applicable-not attempted and the patient did not perform the activity before the current illness, exacerbation or injury. 10-Not Attempted due to Environmental Limitations-(lack of equipment, weather restraints, etc.). 88-Not Attempted due to Medical Conditions or Safety Concerns. Transfers (B, C, W/C): 5 Roll Left to Right (QC): 6 Sit to Lying (QC): 6 Sit to Stand (QC): 6 Chair/Uzb-qf-Wnwsa Xfer(QC): 5 Bed to/from Chair: 5 Car Transfer (QC): 88 Weight Bearing Right Lower Extremity: Right Weight Bearing/Tolerated Left Lower Extremity: Left Weight Bearing/Tolerated Gait Training Does the Patient Walk?: Yes Gait: 5 Walk 10 feet (QC): 5 Walk 50 ft with 2 Turns(QC): 88 Walk 150 ft (QC): 88 Walking 10ft/uneven surface-QC: 88 Gait Persons Needed: 1 Gait Assistive Device: FWW emphasis on gait with FWW and extended O2 tubing with turns to learn safe management of tubing etc. Pt. explains how she uses and manages tubing at home Exercises Seated Therapy Exercises: Ankle pumps, Sit to stand, Long arc quads, Hip flexion, Hip abd/add Seated Reps: 15 Treatments pt. walking 16 ft x 5 10 ft x 1 with extended O2 tubing at 4L with sats dropping to 79% and taking 1-2 mins to recover to 90%. Pt. needs instructed to stop talking during low O2 sats and to use purse lipped breathing Assessment Current Status: Fair Progress pt. unrealistic about parts of her progress path and is having O2 sats drop with short bouts of gait as well as c/o hemorrhoid pain at / PT Psychology Professor Goals Psychology Professor Goals PT Psychology Professor Goals Time Frame: Aug 24, 2019 Sit to Lying (QC): 6 Lying-Sitting on Side/Bed(QC): 6 Sit to Stand (QC): 6 Roll Left to Right (QC): 6 Chair/Wfq-fd-Bgmcc Xfer(QC): 6 Car Transfer (QC): 6 Does the Patient Walk: Yes Walk 10 feet (QC): 6 Walk 10ft-Uneven Surface(QC): 6 Walk 50ft with 2 Turns (QC): 6 Walk 150 ft (QC): 6 Wheel 50 feet with 2 turns (QC: 9 1 Step (curb) (QC): 6 4 Steps (QC): 6 12 Steps (QC): 9 Picking up an Object (QC): 88 PT Plan Treatment/Plan Treatment Plan: Continue Plan of Care Treatment Plan: Bed Mobility, Education, Functional Activity Sravani, Functional Strength, Group Therapy, Gait, Safety, Therapeutic Exercise, Transfers Treatment Duration: Aug 11, 2019 Frequency: Modified Program (IRF) (02/05) Estimated Hrs Per Day: Other (02/05) Patient and/or Family Agrees t: Yes Safety Risks/Education Patient Education: Gait Training, Transfer Techniques, Correct Positioning, Disease Process, Safety Issues Teaching Recipient: Patient Teaching Methods: Demonstration, Discussion Response to Teaching: Verbalize Understanding, Return Demonstration, Daniel nforcement Needed Time/GCodes Time In: 800 Time Out: 900 Total Billed Treatment Time: 60 Total Billed Treatment 1,GT25m,FA15m,EX20m NITO CLINTON WASHERY BOSS Aug 12, 2019 08:57
--- NOTE | 2019-08-12 09:15 | PM&R Progress Note ---
Subjective HPI/CC On Admission Date Seen by Provider: Aug 12, 2019 Time Seen by Provider: 09:15 CC: T6 compression fracture s/p kyphoplasty Hospital course from med-surg: Ms. Mccloud presented to ER in exacerbation of COPD and respiratory distress, has seen pulmonology. She had recently been diagnosed with lung cancer, is DNR do not intubate. During initial management of COPD exacerbation was found to be in Afib with RVR, heart rate of 170s, has seen cardiology. She also had been experiencing back pain, was found to have T6 compression fracture and underwent kyphoplasty. She continues to have back pain. Noted to have confusion and sundowning, also reports having insomnia. When seen today she reports feeling well overall, she reports her breathing is better now than it had been prior to admission. Her only complaint is of leg weakness. She still has a lopez catheter in due to concerns about her legs being too weak to make it to a toilet in time. She will be discharged to IRF. [facility] Hospital Course: Pt had a lengthy hospital course for two weeks. She was admitted for respiratory insufficiency placed on bi-PAP and pneumonia with history of lung cancer just diagnosed by Dr. [place] and Dr. De La Cruz. Compression fracture required kyphoplasty but she had multiple ICU transfers due to worsen ing respiratory status and encephalopathy so she was very weakened but breathing better at time of DC and back on baseline at 3 liters of O2. PT and OT orders placed and she was deemed stable for DC to inpatient rehab where she will begin her recovery and be able to undergo lung cancer treatment. Currently she is just finished up with her shower with occupational therapy. She is refusing the Geodon injections and she denies taking any major psych meds as an outpatient. Melatonin will be ordered to help with her chronic insomnia. Left leg improved with the Keflex for venous stasis dermatitis with cellulitis. Ravi wraps will be initiated for lower extremity edema considering volume overload from aggressive IV fluids upstairs on MedSurg caused fluid to go into soft tissue. We will discontinue the Lopez catheter. Anxiety will be managed also. Dr. Waddell is managing the hemorrhoid and we have consulted him and I appreciate his help. Her bowels are actually a little bit loose. Subjective/Events-last exam Hemorrhoid is still causing significant difficulties. Everything we can do has been given. Legs are wrapped with RAVI wraps. Noted left leg a little bit pink I noted no warmth or evidence of cellulitis so will initiate triamcinolone cream twice daily to both legs due to edema and high risk for venous stasis dermatitis chronically Telemetry shows normal sinus rhythm with some tachycardia requiring Lopressor IV last night. Psych eval requested Pyridium is helping urination. Overall extremely complicated and difficult to motivate to maintain therapy but will try to do everything we can to help this patient. Conferred with RN Reviewed therapy notes Checked meds and labs Review of Systems General: Fatigue Gastrointestinal: Other (hemorrhoids) Left leg pinkness to the skin Objective Exam Vital Signs Vital Signs Date Time Temp Pulse Resp B/P (MAP) Pulse Ox O2 Delivery O2 Flow Rate FiO2 08/12/19 07:00 101 08/11/19 22:51 98 Nasal Cannula 3.00 08/11/19 18:03 37.2 22 124/75 (91) 08/10/19 11:40 32 Capillary Refill : Less Than 3 Seconds General Appearance: No Apparent Distress, WD/WN, Chronically ill HEENT: PERRL/EOMI, Normal ENT Inspection, Pharynx Normal Neck: Full Range of Motion, Normal Inspection, Non Tender, Supple Respiratory: Chest Non Tender, Lungs Clear, Normal Breath Sounds, No Accessory Muscle Use, No Respiratory Distress Cardiovascular: Regular Rate, Rhythm, No Edema, No Gallop, No JVD, No Murmur, Normal Peripheral Pulses Gastrointestinal: Normal Bowel Sounds, No Organomegaly, No Pulsatile Mass, Non Tender, Soft Back: Normal Inspection, No CVA Tenderness, No Vertebral Tenderness Extremity: Non Tender, Pedal Edema, Other (slight pinkness left lower leg but no increased warmth 08/12/19) Neurologic/Psychiatric: Alert, Oriented x3, No Motor/Sensory Deficits, Normal Mood/Affect, manager heavy equipment II-XII Norm as Tested Skin: Normal Color, Warm/Dry, Rash (left leg with mild erythema from cici lulitis) Results/Procedures Lab Patient resulted labs reviewed. FIM Transfers Therapy Code Descriptions/Definitions Functional [place] Measure: 0=Not Assessed/NA 4=Minimal Assistance 1=Total Assistance 5=Supervision or Setup 2=Maximal Assistance 6=Modified [place] 3=Moderate Assistance 7=Complete IndependenceSCALE: Activities may be completed with or without assistive devices. 3-Cvuzeynpxz-omosfby completes the activity by him/herself with no assistance from a helper. 5-Set-up or Clean-up Assistance-helper sets up or cleans up; patient completes activity. [place] assists only prior to or following the activity. 4-Supervision or Touching Assistance-helper provides verbal cues and/or touching/steadying and/or contact guard assistance as patient completes activity. Assistance may be provided throughout the activity or intermittently. 3-Partial/Moderate Assistance-helper does LESS THAN HALF the effort. [place] lifts, holds or supports trunk or limbs, but provides less than half the effort. 2-Substantial/Maximal Assistance-helper does MORE THAN HALF the effort. [place] lifts or holds trunk or limbs and provides more than half the effort. 5-Fkwtrghuu-uxznrx does ALL the effort. Patient does none of the effort to com plete the activity. Or, the assistance of 2 or more helpers is required for the patient to complete the activity. If activity was not attempted, code reason: 7-Patient Refused. 9-Not Applicable-not attempted and the patient did not perform the activity before the current illness, exacerbation or injury. 10-Not Attempted due to Environmental Limitations-(lack of equipment, weather restraints, etc.). 88-Not Attempted due to Medical Conditions or Safety Concerns. Transfers (B, C, W/C) (FIM): 5 Roll Left to Right (QC): 6 Sit to Lying (QC): 6 Sit to Stand (QC): 6 Chair/Pkz-co-Wrbbj Xfer(QC): 5 Bed to/from Chair: 5 Car Transfer (QC): 88 Gait Training Does the Patient Walk?: Yes Gait (FIM): 5 Distance (FIM): 1=up to 49 ft Walk 10 feet (QC): 5 Walk 50 ft with 2 Turns(QC): 88 Walk 150 ft (QC): 88 Walking 10ft/uneven surface-QC: 88 Gait Persons Needed: 1 Gait Assistive Device: FWW Wheelchair Training Does the Pt Use a Wheelchair?: Yes Wheelchair Distance: 1=up to 49 ft Wheel 50 ft with 2 turns (QC): 3 Wheel 150 ft (QC): 88 Type of Wheelchair: Manual Stair Training 1 Step (curb) (QC): 88 (pt unable to safely perform or attempt) 4 Steps (QC): 88 12 Steps (QC): 88 Balance Picking up an Object (QC): 88 (contraindicated with recent kyphoplasty) ADL-Treatment Eating (QC): 6 Oral Hygiene (QC): 6 Bathing Location: L Arm, R Arm, L Upper Leg, R Upper Leg, Chest, Abdomen, Buttocks (leaned side to side), Perineal Area Shower/Bathe Self (QC): 3 Upper Body Dressing (QC): 7 Lower Body Dressing (QC): 2 (Footwear (QC) 2) On/Off Footwear (QC): 2 Toileting Hygiene (QC): 3 Toilet Transfer (QC): 5 Assessment/Plan Assessment and Plan Assess & Plan/Chief Complaint Assessment: T6 compression fracture pathological either osteoporosis or lung cancer status post kyphoplasty uncomplicated Acute on chronic respiratory failure requiring 14 days of [facility] hospital course COPD Former smoker History of acute renal failure Severe anxiety Emotional mental problems Anemia Hypertension lmg-vr-bvbvssn Severe debility Lopez catheter in place Severe weakness Left lower extremity cellulitis placed on Keflex Severe lower extremity edema ordered Ravi wraps Hemorrhoids Left lower extremity venous stasis dermatitis ordering triamcinolone cream twice a day Plan: Restart all meds for MedSurg Nebs Oxygen Inpatient rehabilitation protocol Complete Keflex Wide Ravi wraps Hemorrhoid treatment (1) Compression fracture of T6 vertebra Status: Acute (2) COPD (chronic obstructive pulmonary disease) Status: Chronic (3) Constipation Status: Acute (4) Lung mass (5) Lung cancer Status: Chronic (6) Altered mental status Status: Resolved Resolution Date/Time: 08/05/19 @ 16:39 (7) Leg edema Status: Acute (8) Acidosis Status: Acute (9) Acute on chronic respiratory failure Status: Acute (10) Acute renal failure Status: Acute (11) Anxiety Status: Acute (12) Elevated troponin Status: Acute (13) Elevation of cardiac enzymes Status: Acute (14) Sinus tachycardia Status: Acute (15) UTI (urinary tract infection) Status: Acute (16) Uncontrolled hypertension Status: Acute (17) Edema (18) Left leg cellulitis (19) Venous stasis dermatitis (20) Insomnia CHARLY HEIN DO Aug 12, 2019 09:15
[2019-08-12] MEDS: DILTIAZEM 120 MG (CARDIZEM CD) CAP PO SCH (09:16)
[2019-08-12] MEDS: CEPHALEXIN 250 MG (KEFLEX) CAP PO SCH ×4 (09:17→21:43)
[2019-08-12] MEDS: FUROSEMIDE 40 MG (LASIX) TAB PO SCH (09:17)
--- NOTE | 2019-08-12 09:27 | Progress Note - Urology ---
Progress Note-Urology Progress Notes/Assess & Plan Progress/Assessment & Plan DOING WELL NEFF. WE WILL SEE PRN Final Diagnosis URINE RETENTION (RESOLVED) RUSSELL CRUZ MD Aug 12, 2019 09:27
[2019-08-12] MEDS: POLYETHYLENE GLYCOL 17 GM (MIRALAX) PACK PO SCH ×3 (09:32→21:45)
[2019-08-12] MEDS: LIDOCAINE 4% (SALONPAS) PATCH TOP SCH ×2 (09:32→12:16)
[2019-08-12] MEDS: SENNA W/DOCUSATE (SENOKOT S) TABLET PO SCH ×2 (09:33→21:45)
[2019-08-12] MEDS: HYDROCORTISONE/PRAM 1% CREAM 30 GM TUBE TOP SCH ×2 (09:35→21:55)
[2019-08-12] MEDS: ACETAMINOPHEN 325 MG TABLET PO PRN ×2 (09:37→13:47)
[2019-08-12] MEDS: TRIAMCINOLONE 0.1% CR (KENALOG) 15 GM TUBE TOP SCH ×2 (12:07→21:55)
[2019-08-12] MEDS: ENOXAPARIN 40 MG/0.4 ML (LOVENOX) SYR SQ SCH (12:16)
--- NOTE | 2019-08-12 12:20 | NUR ---
PT REQUESTED THE [employer] PATCH NOW, STATES THAT SHE DIDN'T WANT IT EARLIER BUT, "THEY WORKED ME PRETTY HARD THIS MORNING, NOW HAVING SOME BACK PAIN". APPLIED TO BACK
--- NOTE | 2019-08-12 14:33 | Therapy Group Daily Note ---
Therapy Daily Group Note Patient Education Topic Other List Below (ambulation, ARU description/expectations) Exercises LE Seated Exercise, UE Exercise Session Ratio (pt:therapist): 5:1 Goal of Session: Education on ARU Expectations, UE/LE Strengthing, Other (list) (ambulation) Goal Met for this Session: Yes Pt Benefit of Group: Contributions to Others, Increased Functional Strength, Improved Cognition, Recognition of Peers, Socialization Other/Notes Pt transported via w/c to [facility] for OT/PT group. Group consisted of introductions (name, place living, telling a joke), socialization, UE/LE seated exercises, education of ARU description/expectations and walking safely utilizing AE. Pt introduced self appropriately and actively listened to peers. Pt demonstrated understanding of educational topics by asking questions or stanley oliva personal observations and stories. Pt was able to tolerate UE/LE seated exercises. After therapy, pt sitting in recliner with call light/phone in reach. All needs met in room, son present in room.. Start Time: 13:00 Stop Time: 14:15 Total Billed Treatment Time: 75 Total Billed Treatment 1-GRP CARINA SCHMIDT Aug 12, 2019 14:33 POS
--- NOTE | 2019-08-12 17:58 | NUR ---
Met with pt to discuss and complete paper work for DPOA for Health care. Pt's son unable to be present so pt didn't want to sign until she signed with him present so they could further discuss issues. Pt requested I contact pt's son on Thursday morning to set up a time they could meet and finalize Advance Directives. was to meet with this afternoon pt but due to ER emergency he arranged for a meeting with this social media director who [facility]. Her primary concern today was a possible surgery. Will follow with Chaplain Spain and will set up meeting with pt and son.
[2019-08-12 18:22] VITALS: BP 137/78
--- NOTE | 2019-08-12 19:24 | NUR ---
bedside report received from BRAYDON LOZA, assume care of pt
--- NOTE | 2019-08-12 20:55 | NUR ---
Left a message on son's voicemail to return call. Pt stated that she had sent him a text message shortly after she got back into w/c after the fall, & that he replied back to her. Pt states, "yeh, he knows about it, he & his had an event to go to hospital for special surgery." Notified chemical recovery operator.
[2019-08-12] MEDS: MELATONIN 3 MG TABLET PO PRN (21:44)
--- NOTE | 2019-08-12 21:44 | NUR ---
refused Senokot & miralax, c/o back & anal pain from hemorrhoids, pain level 10/10 on numeric scale, Percocet 10 1 tab given & Xanax 0.125mg
[2019-08-12 21:50] VITALS: BP 122/72
[2019-08-12] MEDS: ALPRAZolam 0.25 MG (XANAX) TAB PO PRN (21:51)
[2019-08-12] MEDS: LIDOCAINE PATCH REMOVAL TP SCH (21:56)
--- NOTE | 2019-08-12 22:30 | NUR ---
resting quietly in bed, pain level 0/10 on flacc scale
[2019-08-13] MEDS: oxyCODONE/APAP 10/325MG (PERCOCET 10) TABLET PO PRN ×4 (02:00→21:32)
--- NOTE | 2019-08-13 02:00 | NUR ---
c/o back & hemorrhoidal pain level 10/10 on numeric scale, percocet 10/325 1 tab given
[2019-08-13] MEDS: RT-ALBUTEROL/IPRATROPIUM 3 ML (DUONEB) VIAL INH SCH ×4 (02:06→21:21)
--- NOTE | 2019-08-13 02:42 | NUR ---
resting quietly in bed, pain level 0/10 on flacc scale
[2019-08-13] MEDS: inSUlin ASPART (NovoLOG) 1 UNIT/0.01 ML (CHARGE PER UNIT) SC SCH ×4 (06:00→21:34)
[2019-08-13] MEDS: KCL 20 MEQ TAB (K-DUR) PO SCH (07:04)
--- NOTE | 2019-08-13 07:04 | NUR ---
c/o back & hemorrhoidal pain level 10/10 on numeric scale, Percocet 10/325 1 tab given
--- NOTE | 2019-08-13 07:30 | NUR ---
bedside report given to FRANK LOZA
--- NOTE | 2019-08-13 09:00 | NUR ---
DR. HEIN NOTIFIED OF PT. HAVING INCREASED PAIN IN RIGHT MIDDLE BACK AREA WITH SENSATIONS OF PINS AND NEEDLES IN AREA. NEW ORDER NOTED.
[2019-08-13] MEDS: FUROSEMIDE 40 MG (LASIX) TAB PO SCH (09:15)
[2019-08-13] MEDS: DILTIAZEM 120 MG (CARDIZEM CD) CAP PO SCH (09:15)
[2019-08-13] MEDS: SENNA W/DOCUSATE (SENOKOT S) TABLET PO SCH ×2 (09:15→21:32)
[2019-08-13] MEDS: CEPHALEXIN 250 MG (KEFLEX) CAP PO SCH (09:18)
[2019-08-13] MEDS: LIDOCAINE 4% (SALONPAS) PATCH TOP SCH (09:21)
[2019-08-13] MEDS: TRIAMCINOLONE 0.1% CR (KENALOG) 15 GM TUBE TOP SCH ×2 (09:21→21:35)
[2019-08-13] MEDS: HYDROCORTISONE/PRAM 1% CREAM 30 GM TUBE TOP SCH ×2 (09:23→21:32)
[2019-08-13] MEDS: POLYETHYLENE GLYCOL 17 GM (MIRALAX) PACK PO SCH ×3 (09:23→21:38)
--- NOTE | 2019-08-13 10:00 | Diagnostic Imaging Report ---
INDICATION: Fall. Back pain. 5 views of the lumbar spine were obtained. FINDINGS: There is normal height of the lumbar vertebral bodies. There is mild disc space narrowing and several millimeters of spondylolisthesis at L4-L5. There is mild disc space narrowing and spondylosis at L5-S1. There are mild degenerated facets. No fracture or other acute abnormality is seen. IMPRESSION: There are mild degenerative changes present with no acute abnormality seen. Dictated by: Dictated on workstation # [id number]
--- NOTE | 2019-08-13 10:24 | Cardiology Progress Note ---
Subjective Date Seen by Provider: Aug 13, 2019 Time Seen by Provider: 10:20 Subjective/Events-last exam patient is sitting in a chair, still having shortness of breath. Denied any chest pain, complaining of fatigue Review of Systems General: No Chills, No Night Sweats; Fatigue, Malaise; No Appetite, No Other HEENT: No Head Aches, No Visual Changes, No Eye Pain, No Ear Pain, No Dysphasia, No Sinus Congestion, No Post Nasal Drip, No Sore Throat, No Other Pulmonary: Dyspnea; No Cough, No Pleuritic Chest Pain, No Other Cardiovascular: Edema; No: Chest Pain, Palpitations, Orthopnea, Paroxysmal Noc. Dyspnea, Lt Headedness, Other Objective-Cardiology Exam Last Set of Vital Signs Vital Signs 08/10/19 08/12/19 08/12/19 08/13/19 08/13/19 11:40 18:22 21:50 07:29 08:35 Temp 36.8 Pulse 113 Resp 20 B/P (MAP) 122/72 (89) Pulse Ox 93 O2 Delivery Nasal Cannula O2 Flow Rate 3.00 FiO2 32 Capillary Refill : Less Than 3 Seconds I&O Intake and Output 08/13/19 00:00 Intake Total 1700 ml Balance 1700 ml Intake Oral 1700 ml # Voids 13 # Bowel Movements 4 General: Alert, Oriented X3, Cooperative HEENT: Atraumatic, PERRLA Neck: Supple, No JVD, No Thyromegaly Lungs: Clear to Auscultation, Normal Air Movement Heart: Normal S1, Normal S2, No Murmurs, Other (Atrial fibrillation) Abdomen: Normal Bowel Sounds, Soft, No Tenderness, No Hepatosplenomegaly, No Masses Extremities: No Clubbing, No Cyanosis, Normal Pulses, No Tenderness/Swelling, Other (+1 edema BLE) Skin: No Rashes, No Breakdown, No Significant Lesion Neuro: Normal Gait, Normal Speech, Strength at 5/5 X4 Ext, Normal Tone, Sensation Intact A/P-Cardiology Admission Diagnosis PAF COPD Hx Lung CA T6 fx, s/p kyphoplasty. Assessment/Plan Paroxysmal atrial fibrillation/flutter with rapid response returned to sinus tachycardia, I will increase Toprol to 50 mg daily and monitor tolerance and response Start oral anticoagulation and monitor tolerance and response Status post fall while walking with an aide, no significant injury was reported. COPD with episode of exacerbation, improved, managed by primary care team Acute psychosis, change in mental status, improved. Managed by medical team. Back pain, T6 fracture, s/p kyphoplasty with Dr. Wallace on 08/05/19 Metabolic acidosis with acute respiratory failure, better at this time. Hx of Lung CA- followed by Dr. Birmingham. Acute renal failure- improved, continue to monitor. Ex tobaccoism Obesity Clinical Quality Measures DVT/VTE Risk/Contraindication: Risk Factor Score Per Nursin RFS Level Per Nursing on Admit: 4+=Very High CHAGO EISENBERG MD Aug 13, 2019 10:24
--- NOTE | 2019-08-13 11:51 | Physical Therapy Daily Note ---
PT Daily Note-Current Subjective Pt sitting in recliner visiting with son upon arrival. Pt agrees to limited Seated Ex and advised of recent Xray due to fall last night. Pain Numeric Pain Scale: 6 Comment: Pt reports hemorrhoid pain. Mental Status Patient Orientation: Person, Place, Situation Attachments: Oxygen Transfers SCALE: Activities may be completed with or without assistive devices. 7-Mksiyxnzye-epahgny completes the activity by him/herself with no assistance from a helper. 5-Set-up or Clean-up Assistance-helper sets up or cleans up; patient completes activity. [place] assists only prior to or following the activity. 4-Supervision or Touching Assistance-helper provides verbal cues and/or touching/steadying and/or contact guard assistance as patient completes activity. Assistance may be provided throughout the activity or intermittently. 3-Partial/Moderate Assistance-helper does LESS THAN HALF the effort. [place] lifts, holds or supports trunk or limbs, but provides less than half the effort. 2-Substantial/Maximal Assistance-helper does MORE THAN HALF the effort. [place] lifts or holds trunk or limbs and provides more than half the effort. 7-Zjjgjpnex-amrqfp does ALL the effort. Patient does none of the effort to complete the activity. Or, the assistance of 2 or more helpers is required for the patient to complete the activity. If activity was not attempted, code reason: 7-Patient Refused. 9-Not Applicable-not attempted and the patient did not perform the activity before the current illness, exacerbation or injury. 10-Not Attempted due to Environmental Limitations-(lack of equipment, weather restraints, etc.). 88-Not Attempted due to Medical Conditions or Safety Concerns. Sit to Stand (QC): 5 Weight Bearing Right Lower Extremity: Right Weight Bearing/Tolerated Left Lower Extremity: Left Weight Bearing/Tolerated Exercises Seated Therapy Exercises: Ankle pumps, Long arc quads, Hip flexion, Kicking activity, Hamstring Curls Seated Reps: 15 Treatments Pt completes Seated EX in recliner before needing to use restroom. Pt asked to be left on toilet as "it might take me a little while". Pt is left with bathroom call light to pull when finished. Assessment Current Status: Fair Progress Pt's hemorrhoid pain limits her participation with Rx. Pt is fixated on it. PT Territory Sales Consultant Goals Intermediate Goals PT Territory Sales Consultant Goals Time Frame: Aug 24, 2019 Sit to Lying (QC): 6 Lying-Sitting on Side/Bed(QC): 6 Sit to Stand (QC): 6 Roll Left to Right (QC): 6 Chair/Ihe-jh-Ditug Xfer(QC): 6 Car Transfer (QC): 6 Does the Patient Walk: Yes Walk 10 feet (QC): 6 Walk 10ft-Uneven Surface(QC): 6 Walk 50ft with 2 Turns (QC): 6 Walk 150 ft (QC): 6 Wheel 50 feet with 2 turns (QC: 9 1 Step (curb) (QC): 6 4 Steps (QC): 6 12 Steps (QC): 9 Picking up an Object (QC): 88 PT Plan Problem List Problem List: Activity Tolerance, Functional Strength, Safety, Balance, Gait Treatment/Plan Treatment Plan: Continue Plan of Care Treatment Plan: Bed Mobility, Education, Functional Activity Sravani, Functional Strength, Group Therapy, Gait, Safety, Therapeutic Exercise, Transfers Treatment Duration: Aug 11, 2019 Frequency: Modified Program (IRF) (02/05) Estimated Hrs Per Day: Other (02/05) Patient and/or Family Agrees t: Yes Safety Risks/Education Patient Education: Correct Positioning, Safety Issues Teaching Recipient: Patient Teaching Methods: Discussion Response to Teaching: Verbalize Understanding Time/GCodes Time In: 1035 Time Out: 1100 Total Billed Treatment Time: 25 Total Billed Treatment 1, GT x2 (25m) ELEANOR ELIZABETH PTA Aug 13, 2019 11:51
[2019-08-13] MEDS ORDERED: DIBUCAINE (NUPERCAINAL) 1% OINT 30 GM TOP PRN (13:45)
--- NOTE | 2019-08-13 15:02 | PM&R Progress Note ---
Subjective HPI/CC On Admission Date Seen by Provider: Aug 13, 2019 Time Seen by Provider: 13:30 CC: T6 compression fracture s/p kyphoplasty Hospital course from med-surg: Ms. Mccloud presented to ER in exacerbation of COPD and respiratory distress, has seen pulmonology. She had recently been diagnosed with lung cancer, is DNR do not intubate. During initial management of COPD exacerbation was found to be in Afib with RVR, heart rate of 170s, has seen cardiology. She also had been experiencing back pain, was found to have T6 compression fracture and underwent kyphoplasty. She continues to have back pain. Noted to have confusion and sundowning, also reports having insomnia. When seen today she reports feeling well overall, she reports her breathing is better now than it had been prior to admission. Her only complaint is of leg weakness. She still has a lopez catheter in due to concerns about her legs being too weak to make it to a toilet in time. She will be discharged to IRF. [facility] Hospital Course: Pt had a lengthy hospital course for two weeks. She was admitted for respiratory insufficiency placed on bi-PAP and pneumonia with history of lung cancer just diagnosed by Dr. Birmingham and Dr. De La Cruz. Compression fracture required kyphoplasty but she had multiple ICU transfers due to worsen ing respiratory status and encephalopathy so she was very weakened but breathing better at time of DC and back on baseline at 3 liters of O2. PT and OT orders placed and she was deemed stable for DC to inpatient rehab where she will begin her recovery and be able to undergo lung cancer treatment. Currently she is just finished up with her shower with occupational therapy. She is refusing the Geodon injections and she denies taking any major psych meds as an outpatient. Melatonin will be ordered to help with her chronic insomnia. Left leg improved with the Keflex for venous stasis dermatitis with cellulitis. Ravi wraps will be initiated for lower extremity edema considering volume overload from aggressive IV fluids upstairs on MedSurg caused fluid to go into soft tissue. We will discontinue the Lopez catheter. Anxiety will be managed also. Dr. Waddell is managing the hemorrhoid and we have consulted him and I appreciate his help. Her bowels are actually a little bit loose. Subjective/Events-last exam Fell yesterday and obtained xrays today and no fracture noted Hemorrhoid is still causing significant difficulties. Will try EMLA cream and lidocaine. Legs are wrapped with RAVI wraps. Noted left leg a little bit pink yesterday and I noted no warmth or evidence of cellulitis so will initiate triamcinolone cream twice daily to both legs due to edema and high risk for venous stasis dermatitis chronically Telemetry shows normal sinus rhythm Son at bedside and after I round they start yelling at each other Pyridium is helping frequency of urination. Overall extremely complicated and difficult to motivate to maintain therapy but will try to do everything we can to help this patient. HIT treatment for the hemorrhoid may need to be done before her recovery can continue so will look into that at [facility] Conferred with RN Reviewed therapy notes Checked meds and labs Review of Systems Gastrointestinal: Other (hemorrhoid pain) Musculoskeletal: leg pain Left leg pinkness to the skin Objective Exam Vital Signs Vital Signs Date Time Temp Pulse Resp B/P (MAP) Pulse Ox O2 Delivery O2 Flow Rate FiO2 08/13/19 14:17 93 Nasal Cannula 3.00 08/13/19 13:00 97 08/12/19 21:50 20 122/72 (89) 08/12/19 18:22 36.8 08/10/19 11:40 32 Capillary Refill : Less Than 3 Seconds General Appearance: No Apparent Distress, WD/WN, Chronically ill HEENT: PERRL/EOMI, Normal ENT Inspection, Pharynx Normal Neck: Full Range of Motion, Normal Inspection, Non Tender, Supple Respiratory: Chest Non Tender, Lungs Clear, Normal Breath Sounds, No Accessory Muscle Use, No Respiratory Distress Cardiovascular: Regular Rate, Rhythm, No Edema, No Gallop, No JVD, No Murmur, Normal Peripheral Pulses Gastrointestinal: Normal Bowel Sounds, No Organomegaly, No Pulsatile Mass, Non Tender, Soft Back: Normal Inspection, No CVA Tenderness, No Vertebral Tenderness Extremity: Non Tender, Pedal Edema, Other (slight pinkness left lower leg but no increased warmth 08/12/19) Neurologic/Psychiatric: Alert, Oriented x3, No Motor/Sensory Deficits, Normal Mood/Affect, vp rheumatology II-XII Norm as Tested Skin: Normal Color, Warm/Dry, Rash (left leg with mild erythema from cellulitis) Results/Procedures Lab Patient resulted labs reviewed. FIM Transfers Therapy Code Descriptions/Definitions Functional [place] Measure: 0=Not Assessed/NA 4=Minimal Assistance 1=Total Assistance 5=Supervision or Setup 2=Maximal Assistance 6=Modified [place] 3=Moderate Assistance 7=Complete IndependenceSCALE: Activities may be completed with or without assistive devices. 5-Hsensfumno-yogjova completes the activity by him/herself with no assistance from a helper. 5-Set-up or Clean-up Assistance-helper sets up or cleans up; patient completes activity. [place] assists only prior to or following the activity. 4-Supervision or Touching Assistance-helper provides verbal cues and/or touching/steadying and/or contact guard assistance as patient completes activity. Assistance may be provided throughout the activity or intermittently. 3-Partial/Moderate Assistance-helper does LESS THAN HALF the effort. [place] lifts, holds or supports trunk or limbs, but provides less than half the effort. 2-Substantial/Maximal Assistance-helper does MORE THAN HALF the effort. [place] lifts or holds trunk or limbs and provides more than half the effort. 6-Svqzlaymk-xtfhgj does ALL the effort. Patient does none of the effort to complete the activity. Or, the assistance of 2 or more helpers is required for the patient to complete the activity. If activity was not attempted, code reason: 7-Patient Refused. 9-Not Applicable-not attempted and the patient did not perform the activity before the current illness, exacerbation or injury. 10-Not Attempted due to Environmental Limitations-(lack of equipment, weather restraints, etc.). 88-Not Attempted due to Medical Conditions or Safety Concerns. Transfers (B, C, W/C) (FIM): 5 Roll Left to Right (QC): 6 Sit to Lying (QC): 6 Sit to Stand (QC): 5 Chair/Dqz-ku-Zvhmh Xfer(QC): 5 Bed to/from Chair: 5 Car Transfer (QC): 88 Gait Training Does the Patient Walk?: Yes Gait (FIM): 5 Distance (FIM): 1=up to 49 ft Walk 10 feet (QC): 5 Walk 50 ft with 2 Turns(QC): 88 Walk 150 ft (QC): 88 Walking 10ft/uneven surface-QC: 88 Gait Persons Needed: 1 Gait Assistive Device: FWW Wheelchair Training Does the Pt Use a Wheelchair?: Yes Wheelchair Distance: 1=up to 49 ft Wheel 50 ft with 2 turns (QC): 3 Wheel 150 ft (QC): 88 Type of Wheelchair: Manual Stair Training 1 Step (curb) (QC): 88 (pt unable to safely perform or attempt) 4 Steps (QC): 88 12 Steps (QC): 88 Balance Picking up an Object (QC): 88 (contraindicated with recent kyphoplasty) ADL-Treatment Eating (QC): 6 Oral Hygiene (QC): 6 Bathing Location: L Arm, R Arm, L Upper Leg, R Upper Leg, Chest, Abdomen, Buttocks (leaned side to side), Perineal Area Shower/Bathe Self (QC): 3 Upper Body Dressing (QC): 7 Lower Body Dressing (QC): 2 (Footwear (QC) 2) On/Off Footwear (QC): 2 Toileting Hygiene (QC): 3 Toilet Transfer (QC): 5 Assessment/Plan Assessment and Plan Assess & Plan/Chief Complaint Assessment: T6 compression fracture pathological either osteoporosis or lung cancer status post kyphoplasty uncomplicated Acute on chronic respiratory failure requiring [address] [facility] c ourse COPD Former smoker History of acute renal failure Severe anxiety Emotional mental problems Anemia Hypertension sln-hn-xwksprp Severe debility Lopez catheter in place Severe weakness Left lower extremity cellulitis placed on Keflex Severe lower extremity edema ordered Ravi wraps Hemorrhoids Left lower extremity venous stasis dermatitis ordering triamcinolone cream twice a day Fall yesterday 08/12/19 Plan: Restart all meds for [facility] Oxygen Inpatient rehabilitation protocol Complete Keflex Wide Ravi wraps Hemorrhoid treatment may need to be sent to [facility] (1) Compression fracture of T6 vertebra Status: Acute (2) COPD (chronic obstructive pulmonary disease) Status: Chronic (3) Constipation Status: Acute (4) Lung mass (5) Lung cancer Status: Chronic (6) Altered mental status Status: Resolved Resolution Date/Time: 08/05/19 @ 16:39 (7) Leg edema Status: Acute (8) Acidosis Status: Acute (9) Acute on chronic respiratory failure Status: Acute (10) Acute renal failure Status: Acute (11) Anxiety Status: Acute (12) Elevated troponin Status: Acute (13) Elevation of cardiac enzymes Status: Acute (14) Sinus tachycardia Status: Acute (15) UTI (urinary tract infection) Status: Acute (16) Uncontrolled hypertension Status: Acute (17) Edema (18) Left leg cellulitis (19) Venous stasis dermatitis (20) Insomnia CHARLY HEIN DO Aug 13, 2019 15:02
[2019-08-13] MEDS: ACETAMINOPHEN 325 MG TABLET PO PRN (15:31)
[2019-08-13 18:00] VITALS: BP 135/73
--- NOTE | 2019-08-13 19:15 | NUR ---
bedside report received from FRANK LOZA, assume care of pt
--- NOTE | 2019-08-13 20:17 | NUR ---
pt c/o indigestion, has been up to bathroom x4 since 190, called orders received for Tums 500mg q 4hrs prn indigestion & Zofran 8mg po q6hrs prn nausea
[2019-08-13] MEDS ORDERED: CALCIUM CARBONATE 500 MG (TUMS) TAB.CHEW PO PRN (20:30)
[2019-08-13] MEDS ORDERED: ONDANSETRON 4 MG (ZOFRAN) ORAL DISSOLVE TAB PO PRN (20:30)
[2019-08-13] MEDS ORDERED: CALCIUM CARBONATE 500 MG (TUMS) TAB.CHEW ONE (20:33)
--- NOTE | 2019-08-13 20:38 | NUR ---
tums 500mg po given, pt then asking for jello advised to let med work first
[2019-08-13] MEDS: APIXABAN 5 MG (ELIQUIS) TABLET PO SCH (21:32)
[2019-08-13] MEDS: MELATONIN 3 MG TABLET PO PRN (21:32)
--- NOTE | 2019-08-13 21:32 | NUR ---
took evening meds but refused miralax, fsbs 200 NovoLog 4 units given, , c/o back & hemorrhoidal pain level 10/10 on numeric scale also c/o anxiety Xanax 0.125mg given with Percocet 10325 1 tab given back to bed with scd on
[2019-08-13] MEDS: ALPRAZolam 0.25 MG (XANAX) TAB PO PRN (21:33)
[2019-08-13] MEDS: LIDOCAINE PATCH REMOVAL TP SCH (21:35)
[2019-08-13] MEDS: RT-ALBUTEROL/IPRATROPIUM 3 ML (DUONEB) VIAL INH PRN (21:58)
--- NOTE | 2019-08-13 22:20 | NUR ---
resting quietly in bed, pain level 0/10 on flacc scale
[2019-08-14] MEDS: RT-ALBUTEROL/IPRATROPIUM 3 ML (DUONEB) VIAL INH SCH ×4 (02:27→21:50)
[2019-08-14] MEDS: oxyCODONE/APAP 10/325MG (PERCOCET 10) TABLET PO PRN ×4 (03:27→21:19)
--- NOTE | 2019-08-14 03:27 | NUR ---
c/o back & hemorrhoidal pain level 10/10 on numeric scale, Percocet 10/325 1 tab given
--- NOTE | 2019-08-14 04:05 | NUR ---
resting quietly in bed, pain level 0/10 on flacc scale
[2019-08-14 05:59] VITALS: BP 111/68
[2019-08-14] MEDS: inSUlin ASPART (NovoLOG) 1 UNIT/0.01 ML (CHARGE PER UNIT) SC SCH ×4 (06:00→21:28)
[2019-08-14] MEDS: KCL 20 MEQ TAB (K-DUR) PO SCH (06:59)
--- NOTE | 2019-08-14 07:28 | NUR ---
bedside report given to NICK LOZA
[2019-08-14] MEDS: POLYETHYLENE GLYCOL 17 GM (MIRALAX) PACK PO SCH ×3 (09:08→21:20)
[2019-08-14] MEDS: LIDOCAINE 4% (SALONPAS) PATCH TOP SCH (09:09)
[2019-08-14] MEDS: HYDROCORTISONE/PRAM 1% CREAM 30 GM TUBE TOP SCH ×2 (09:09→21:26)
--- NOTE | 2019-08-14 09:14 | PM&R Progress Note ---
Subjective HPI/CC On Admission Date Seen by Provider: Aug 14, 2019 Time Seen by Provider: 09:15 CC: T6 compression fracture s/p kyphoplasty Hospital course from med-surg: Ms. Mccloud presented to ER in exacerbation of COPD and respiratory distress, has seen pulmonology. She had recently been diagnosed with lung cancer, is DNR do not intubate. During initial management of COPD exacerbation was found to be in Afib with RVR, heart rate of 170s, has seen cardiology. She also had been experiencing back pain, was found to have T6 compression fracture and underwent kyphoplasty. She continues to have back pain. Noted to have confusion and sundowning, also reports having insomnia. When seen today she reports feeling well overall, she reports her breathing is better now than it had been prior to admission. Her only complaint is of leg weakness. She still has a lopez catheter in due to concerns about her legs being too weak to make it to a toilet in time. She will be discharged to IRF. [facility] Hospital Course: Pt had a lengthy hospital course for two weeks. She was admitted for respiratory insufficiency placed on bi-PAP and pneumonia with history of lung cancer just diagnosed by Dr. Birmingham and Dr. De La Cruz. Compression fracture required kyphoplasty but she had multiple ICU transfers due to worsen ing respiratory status and encephalopathy so she was very weakened but breathing better at time of DC and back on baseline at 3 liters of O2. PT and OT orders placed and she was deemed stable for DC to inpatient rehab where she will begin her recovery and be able to undergo lung cancer treatment. Currently she is just finished up with her shower with occupational therapy. She is refusing the Geodon injections and she denies taking any major psych meds as an outpatient. Melatonin will be ordered to help with her chronic insomnia. Left leg improved with the Keflex for venous stasis dermatitis with cellulitis. Ravi wraps will be initiated for lower extremity edema considering volume overload from aggressive IV fluids upstairs on MedSurg caused fluid to go into soft tissue. We will discontinue the Lopez catheter. Anxiety will be managed also. Dr. Waddell is managing the hemorrhoid and we have consulted him and I appreciate his help. Her bowels are actually a little bit loose. Subjective/Events-last exam Hemorrhoid is still causing significant difficulties. DR Waddell will be requested to see what he can do since there could be an impaction also Legs are wrapped with RAVI wraps. Pyridium is helping frequency of urination. Accuchecks are ok Overall extremely complicated and difficult to motivate to maintain therapy but will try to do everything we can to help this patient. HIT treatment for the hemorrhoid may need to be done before her recovery can continue so will [place] into [place] [facility] [place] noted Conferred with RN Reviewed therapy notes Checked meds and labs Review of Systems Gastrointestinal: Other (hemorrhoid pain) Left leg pinkness to the skin Objective Exam Vital Signs Vital Signs Date Time Temp Pulse Resp B/P (MAP) Pulse Ox O2 Delivery O2 Flow Rate FiO2 08/14/19 07:00 111 08/14/19 05:59 36.8 18 111/68 (82) 95 Nasal Cannula 3.00 08/10/19 11:40 32 Capillary Refill : Less Than 3 Seconds General Appearance: WD/WN, Chronically ill, Mild Distress (due to hemorrhoid pain) HEENT: PERRL/EOMI, Normal ENT Inspection, Pharynx Normal Neck: Full Range of Motion, Normal Inspection, Non Tender, Supple Respiratory: Chest Non Tender, Lungs Clear, Normal Breath Sounds, No Accessory Muscle Use, No Respiratory Distress Cardiovascular: Regular Rate, Rhythm, No Edema, No Gallop, No JVD, No Murmur, Normal Peripheral Pulses Gastrointestinal: Normal Bowel Sounds, No Organomegaly, No Pulsatile Mass, Non Tender, Soft Back: Normal Inspection, No CVA Tenderness, No Vertebral Tenderness Extremity: Non Tender, Pedal Edema, Other (slight pinkness left lower leg but no increased warmth 08/12/19) Neurologic/Psychiatric: Alert, Oriented x3, No Motor/Sensory Deficits, Normal Mood/Affect, manager software development II-XII Norm as Tested Skin: Normal Color, Warm/Dry, Rash (left leg with mild erythema from cellulitis) Results/Procedures Lab Patient resulted labs reviewed. FIM Transfers Therapy Code Descriptions/Definitions Functional Davis Measure: 0=Not Assessed/NA 4=Minimal Assistance 1=Total Assistance 5=Supervision or Setup 2=Maximal Assistance 6=Modified Davis 3=Moderate Assistance 7=Complete IndependenceSCALE: Activities may be completed with or without assistive devices. 3-Zyedhrdhsk-djxqpsl completes the activity by him/herself with no assistance from a helper. 5-Set-up or Clean-up Assistance-helper sets up or cleans up; patient completes activity. [place] assists only prior to or following the activity. 4-Supervision or Touching Assistance-helper provides verbal cues and/or touching/steadying and/or contact guard assistance as patient completes activity. Assistance may be provided throughout the activity or intermittently. 3-Partial/Moderate Assistance-helper does LESS THAN HALF the effort. Buckner lifts, holds or supports trunk or limbs, but provides less than half the effort. 2-Substantial/Maximal Assistance-helper does MORE THAN HALF the effort. [place] lifts or holds trunk or limbs and provides more than half the effort. 7-Fvmatvzyw-jlylfv does ALL the effort. Patient does none of the effort to complete the activity. Or, the assistance of 2 or more helpers is required for the patient to complete the activity. If activity was not attempted, code reason: 7-Patient Refused. 9-Not Applicable-not attempted and the patient did not perform the activity before the current illness, exacerbation or injury. 10-Not Attempted due to Environmental Limitations-(lack of equipment, weather restraints, etc.). 88-Not Attempted due to Medical Conditions or Safety Concerns. Transfers (B, C, W/C) (FIM): 5 Roll Left to Right (QC): 6 Sit to Lying (QC): 6 Sit to Stand (QC): 5 Chair/Ppi-ow-Zmvbf Xfer(QC): 5 Bed to/from Chair: 5 Car Transfer (QC): 88 Gait Training Does the Patient Walk?: Yes Gait (FIM): 5 Distance (FIM): 1=up to 49 ft Walk 10 feet (QC): 5 Walk 50 ft with 2 Turns(QC): 88 Walk 150 ft (QC): 88 Walking 10ft/uneven surface-QC: 88 Gait Persons Needed: 1 Gait Assistive Device: FWW Wheelchair Training Does the Pt Use a Wheelchair?: Yes Wheelchair Distance: 1=up to 49 ft Wheel 50 ft with 2 turns (QC): 3 Wheel 150 ft (QC): 88 Type of Wheelchair: Manual Stair Training 1 Step (curb) (QC): 88 (pt unable to safely perform or attempt) 4 Steps (QC): 88 12 Steps (QC): 88 Balance Picking up an Object (QC): 88 (contraindicated with recent kyphoplasty) ADL-Treatment Eating (QC): 6 Oral Hygiene (QC): 6 Bathing Location: L Arm, R Arm, L Upper Leg, R Upper Leg, Chest, Abdomen, Buttocks (leaned side to side), Perineal Area Shower/Bathe Self (QC): 3 Upper Body Dressing (QC): 7 Lower Body Dressing (QC): 2 (Footwear (QC) 2) On/Off Footwear (QC): 2 Toileting Hygiene (QC): 3 Toilet Transfer (QC): 5 Assessment/Plan Assessment and Plan Assess & Plan/Chief Complaint Assessment: T6 compression fracture pathological either osteoporosis or lung cancer status post kyphoplasty uncomplicated Acute on chronic respiratory failure requiring 14 days of [facility] hospital course COPD Former smoker History of acute renal failure Severe anxiety Emotional mental problems Anemia Hypertension [id number] Severe debility Lopez catheter in place Severe weakness Left lower extremity cellulitis placed on Keflex Severe lower extremity edema ordered Ravi wraps Hemorrhoids Left lower extremity venous stasis dermatitis ordering triamcinolone cream twice a day Fall yesterday 08/12/19 Plan[facility] Complete Keflex Wide Ravi wraps Hemorrhoid treatment may need to be [place] [facility]addell consultation is appreciated (1) Compression fracture of T6 vertebra Status: Acute (2) COPD (chronic obstructive pulmonary disease) Status: Chronic (3) Constipation Status: Acute (4) Lung mass (5) Lung cancer Status: Chronic (6) Altered mental status Status: Resolved Resolution Date/Time: 08/05/19 @ 16:39 (7) Leg edema Status: Acute (8) Acidosis Status: Acute (9) Acute on chronic respiratory failure Status: Acute (10) Acute renal failure Status: Acute (11) Anxiety Status: Acute (12) Elevated troponin Status: Acute (13) Elevation of cardiac enzymes Status: Acute (14) Sinus tachycardia Status: Acute (15) UTI (urinary tract infection) Status: Acute (16) Uncontrolled hypertension Status: Acute (17) Edema (18) Left leg cellulitis (19) Venous stasis dermatitis (20) Insomnia CHARLY HEIN DO Aug 14, 2019 09:13
[2019-08-14] MEDS: FUROSEMIDE 40 MG (LASIX) TAB PO SCH (09:26)
[2019-08-14] MEDS: meTOproloL SUCCINATE 50 MG (TOPROL XL) TAB PO SCH (09:26)
[2019-08-14] MEDS: APIXABAN 5 MG (ELIQUIS) TABLET PO SCH ×2 (09:27→21:19)
[2019-08-14] MEDS: SENNA W/DOCUSATE (SENOKOT S) TABLET PO SCH ×2 (09:27→21:19)
[2019-08-14] MEDS: DILTIAZEM 120 MG (CARDIZEM CD) CAP PO SCH (09:28)
[2019-08-14] MEDS: TRIAMCINOLONE 0.1% CR (KENALOG) 15 GM TUBE TOP SCH ×2 (09:28→21:28)
[2019-08-14] MEDS ORDERED: LIDOCAINE JELLY 2% (XYLOCAINE) 5 ML TUBE TOP NR (10:30)
--- NOTE | 2019-08-14 11:01 | Cardiology Progress Note ---
Subjective Date Seen by Provider: Aug 14, 2019 Time Seen by Provider: 10:59 Subjective/Events-last exam patient is sitting in bed, still having constipation. Mild dyspnea Review of Systems General: No Chills, No Night Sweats, No Fatigue, No Malaise, No Appetite, No Other HEENT: No Head Aches, No Visual Changes, No Eye Pain, No Ear Pain, No Dysphasia, No Sinus Congestion, No Post Nasal Drip, No Sore Throat, No Other Pulmonary: Dyspnea; No Cough, No Pleuritic Chest Pain, No Other Cardiovascular: No: Chest Pain, Palpitations, Orthopnea, Paroxysmal Noc. Dyspnea, Edema, Lt Headedness, Other Objective-Cardiology Exam Last Set of Vital Signs Vital Signs 08/10/19 08/14/19 08/14/19 08/14/19 11:40 05:59 07:00 09:52 Temp 36.8 Pulse 111 Resp 18 B/P (MAP) 111/68 (82) Pulse Ox 94 O2 Delivery Nasal Cannula O2 Flow Rate 3.00 FiO2 32 Capillary Refill : Less Than 3 Seconds I&O Intake and Output 08/14/19 00:00 Intake Total 1150 ml Balance 1150 ml Intake Oral 1150 ml # Voids 11 # Bowel Movements 4 General: Alert, Oriented X3, Cooperative HEENT: Atraumatic, PERRLA Neck: Supple, No JVD, No Thyromegaly Lungs: Clear to Auscultation, Normal Air Movement Heart: Normal S1, Normal S2, No Murmurs, Other (Atrial fibrillation) Abdomen: Normal Bowel Sounds, Soft, No Tenderness, No Hepatosplenomegaly, No Masses Extremities: No Clubbing, No Cyanosis, Normal Pulses, No Tenderness/Swelling, Other (+1 edema BLE) Skin: No Rashes, No Breakdown, No Significant Lesion Neuro: Normal Gait, Normal Speech, Strength at 5/5 X4 Ext, Normal Tone, Sensation Intact A/P-Cardiology Admission Diagnosis PAF COPD Hx Lung CA T6 fx, s/p kyphoplasty. Assessment/Plan Paroxysmal atrial fibrillation/flutter with rapid response returned to sinus tachycardia, tolerating medication well. Continue to monitor Constipation, starting on laxative and managed by Dr. Lehman COPD with episode of exacerbation, improved, managed by primary care team Acute psychosis, change in mental status, improved. Managed by medical team. Back pain, T6 fracture, s/p kyphoplasty with Dr. Wallace on 08/05/19 Metabolic acidosis with acute respiratory failure, better at this time. Hx of Lung CA- followed by Dr. Birmingham. Acute renal failure- improved, continue to monitor. Ex tobaccoism Obesity Clinical Quality Measures DVT/VTE Risk/Contraindication: Risk Factor Score Per Nursin RFS Level Per Nursing on Admit: 4+=Very High CHAGO EISENBERG MD Aug 14, 2019 11:00
--- NOTE | 2019-08-14 11:12 | Progress Note ---
Subjective Date Seen by a Provider: Aug 14, 2019 Time Seen by a Provider: 11:00 Subjective/Events-last exam hemorrhoid/rectal pain. stage 2-3 ext and int hemorrhoids with acute in flammation. no ischemia/strangulation. palpable hard stool rectal vault consistent with impaction. Objective Exam Vital Signs Date Time Temp Pulse Resp B/P (MAP) Pulse Ox O2 Delivery O2 Flow Rate FiO2 08/14/19 09:52 94 Nasal Cannula 3.00 08/14/19 07:00 111 08/14/19 05:59 36.8 97 18 111/68 (82) 95 Nasal Cannula 3.00 08/14/19 02:29 Nasal Cannula 08/14/19 01:00 119 08/13/19 22:02 98 Nasal Cannula 3.00 08/13/19 21:35 Nasal Cannula 3.00 08/13/19 19:00 90 08/13/19 18:00 36.6 96 20 135/73 (93) 96 Nasal Cannula 3.00 08/13/19 14:17 93 Nasal Cannula 3.00 08/13/19 13:00 97 I & O 08/14/19 07:00 Intake Total 1125 ml Balance 1125 ml Capillary Refill : Less Than 3 Seconds General Appearance: No Apparent Distress HEENT: PERRL/EOMI Neck: Full Range of Motion Respiratory: Chest Non Tender, Decreased Breath Sounds, Wheezing Cardiovascular: Regular Rate, Rhythm Gastrointestinal: soft, distended, other (acute on chronic stage 2-3 ext and int hemorrhoids with rectal fecal impaction.) Extremity: Normal Capillary Refill Neurologic/Psychiatric: Alert, Oriented x3 Skin: Normal Color Lymphatic: No Adenopathy Results Lab Laboratory Tests 08/13/19 11:25: Glucometer 202H 08/13/19 15:34: Glucometer 151H 08/13/19 20:37: Glucometer 200H 08/14/19 05:42: Glucometer 102 Microbiology 08/09/19 Urine Culture - Final, Complete NO GROWTH Assessment/Plan Assessment/Plan Assess & Plan/Chief Complaint fecal impaction with acute on chronic stage 2-3 ext and int hemorrhoids. 2% lidocaine gel. magnesium citrate and if ineffective then lactulose. fecal disimpaction if ineffective. Clinical Quality Measures DVT/VTE Risk/Contraindication: Risk Factor Score Per Nursin RFS Level Per Nursing on Admit: 4+=Very High ALIYAH WARNER MD Aug 14, 2019 11:12
--- NOTE | 2019-08-14 11:16 | Diagnostic Imaging Report ---
INDICATION: Constipation. COMPARISON: None available. FINDINGS: There is a very large volume of stool present throughout the entire colon. Nonobstructive bowel gas pattern. Cholecystectomy clips are present. No abnormal soft tissue mineralizations. IMPRESSION: Large volume of colonic stool throughout the entire colon should correlate with patient's constipation. Dictated by: Dictated on workstation # [id number]
[2019-08-14] MEDS ORDERED: fentaNYL INJECTION 100 MCG/2 ML AMP IVP PRN (14:15)
[2019-08-14] MEDS: ALPRAZolam 0.25 MG (XANAX) TAB PO PRN ×2 (17:09→21:20)
[2019-08-14 18:00] VITALS: BP 106/68
--- NOTE | 2019-08-14 19:13 | NUR ---
bedside report received from NICK LOZA, assume care of pt
[2019-08-14] MEDS: MELATONIN 3 MG TABLET PO PRN (21:19)
--- NOTE | 2019-08-14 21:19 | NUR ---
has been up to bathroom x4 since 1899, having small liq brown stools, tucks used & proctoCream & ice bag c/o pain level 07/28 to hemorrhoids, Percocet 1 tab given & Xanax 0.125mg
[2019-08-14] MEDS: WITCH HAZEL(TUCKS) 40 EA JAR TOP PRN (21:20)
[2019-08-14] MEDS: MAGNESIUM CITRATE 300 ML BTL PO SCH (21:26)
[2019-08-14] MEDS: LIDOCAINE PATCH REMOVAL TP SCH (21:27)
--- NOTE | 2019-08-14 21:55 | NUR ---
resting quietly in bed, pain level 0/10 on flacc scale
[2019-08-15] MEDS: WITCH HAZEL(TUCKS) 40 EA JAR TOP PRN ×2 (01:23→09:17)
[2019-08-15] MEDS: oxyCODONE/APAP 10/325MG (PERCOCET 10) TABLET PO PRN ×3 (01:23→12:28)
--- NOTE | 2019-08-15 01:23 | NUR ---
c/o gas & hemorrhoidal pain, level 10/10 on numeric scale, Percocet 10/325 1 tab given
--- NOTE | 2019-08-15 02:05 | NUR ---
states pain level 8/10 on numeric scale
[2019-08-15] MEDS: RT-ALBUTEROL/IPRATROPIUM 3 ML (DUONEB) VIAL INH SCH ×2 (02:10→10:11)
[2019-08-15] MEDS: ALPRAZolam 0.25 MG (XANAX) TAB PO PRN ×2 (02:19→12:28)
--- NOTE | 2019-08-15 02:19 | NUR ---
pt is anxious Xanax 0.125mg given
--- NOTE | 2019-08-15 02:34 | NUR ---
c/o feeling dizzy after breathing treatment, v/s 88-20-95% -106/70, advised to rest & call for help to sit up
[2019-08-15 05:37] LABS: BASOPHILS % (AUTO) 0 % (0-10); EOSINOPHILS % (AUTO) 1 % (0-10); HEMATOCRIT 30 % (35-52); HEMOGLOBIN 9.4 G/DL (11.5-16.0); LYMPHOCYTES # (AUTO) 0.4 X 10^3 (1.0-4.0); LYMPHOCYTES % (AUTO) 8 % (12-44); MEAN CORPUSCULAR HEMOGLOBIN 31 PG (25-34); MEAN CORPUSCULAR HGB CONC 31 G/DL (32-36); MEAN CORPUSCULAR VOLUME 99 FL (80-99); MEAN PLATELET VOLUME 9.6 FL (7.4-10.4); MONOCYTES # (AUTO) 0.6 X 10^3 (0.0-1.0); MONOCYTES % (AUTO) 10 % (0-12); NEUTROPHILS # (AUTO) 4.4 X 10^3 (1.8-7.8); NEUTROPHILS % (AUTO) 81 % (42-75); PLATELET COUNT 308 10^3/uL (130-400); RED CELL DISTRIBUTION WIDTH 18.5 % (10.0-14.5); WHITE BLOOD COUNT 5.4 10^3/uL (4.3-11.0)
[2019-08-15 05:46] VITALS: BP 120/75
[2019-08-15] MEDS: inSUlin ASPART (NovoLOG) 1 UNIT/0.01 ML (CHARGE PER UNIT) SC SCH ×2 (06:00→11:20)
[2019-08-15 06:04] LABS: ALANINE AMINOTRANSFERASE 38 U/L (0-55); ALBUMIN 3.3 GM/DL (3.2-4.5); ALKALINE PHOSPHATASE 105 U/L (40-136); BILIRUBIN,TOTAL 0.5 MG/DL (0.1-1.0); BUN/CREATININE RATIO 24; CALCIUM 8.8 MG/DL (8.5-10.1); CARBON DIOXIDE 29 MMOL/L (21-32); CHLORIDE 97 MMOL/L (98-107); CREATININE SERUM 0.71 MG/DL (0.60-1.30); GFR ESTIMATED > 60; GLUCOSE 112 MG/DL (70-105); POTASSIUM 3.2 MMOL/L (3.6-5.0); SODIUM 139 MMOL/L (135-145); TOTAL PROTEIN 5.5 GM/DL (6.4-8.2)
--- NOTE | 2019-08-15 06:13 | NUR ---
c/o gas & hemorrhoidal pain level 10/10 on numeric scale, Percocet 10/325 1 tab given
--- NOTE | 2019-08-15 06:30 | NUR ---
pt asking for something to work quicker than laxatives, pt agreeable to dulcolax suppository, called orders received for dulcolax suppository 10mg per rectum once & given
[2019-08-15] MEDS ORDERED: BISACODYL 10 MG SUPP (DULCOLAX) ONE (06:39)
[2019-08-15] MEDS ORDERED: BISACODYL 10 MG SUPP (DULCOLAX) PR ONE (06:45)
--- NOTE | 2019-08-15 07:04 | NUR ---
resting quietly in bed, pain level 0/10 on flacc scale
--- NOTE | 2019-08-15 07:28 | NUR ---
bedside report given to BRAYDON LOZA
--- NOTE | 2019-08-15 08:35 | Cardiology Progress Note ---
Subjective Date Seen by Provider: Aug 15, 2019 Time Seen by Provider: 08:20 Subjective/Events-last exam Patient in bed, complaining of rectal pain, denies any chest pain. Review of Systems General: No Chills, No Night Sweats; Fatigue; No Malaise, No Appetite, No Other HEENT: No Head Aches, No Visual Changes, No Eye Pain, No Ear Pain, No Dysphasia, No Sinus Congestion, No Post Nasal Drip, No Sore Throat, No Other Pulmonary: No Dyspnea, No Cough, No Pleuritic Chest Pain, No Other Cardiovascular: No: Chest Pain, Palpitations, Orthopnea, Paroxysmal Noc. Dyspnea, Edema, Lt Headedness, Other Objective-Cardiology Exam Last Set of Vital Signs Vital Signs 08/15/19 08/15/19 08/15/19 05:46 10:05 10:11 Temp 36.0 Pulse 92 Resp 20 B/P (MAP) 120/75 (90) Pulse Ox 98 O2 Delivery Nasal Cannula O2 Flow Rate 3.00 FiO2 32 Capillary Refill : Less Than 3 Seconds I&O Intake and Output 08/15/19 00:00 Intake Total 1725 ml Balance 1725 ml Intake Oral 1725 ml # Voids 13 # Bowel Movements 2 General: Alert, Oriented X3, Cooperative HEENT: Atraumatic, PERRLA Neck: Supple, No JVD, No Thyromegaly Lungs: Clear to Auscultation, Normal Air Movement Heart: Normal S1, Normal S2, No Murmurs, Other (Atrial fibrillation) Abdomen: Normal Bowel Sounds, Soft, No Tenderness, No Hepatosplenomegaly, No Masses Extremities: No Clubbing, No Cyanosis, Normal Pulses, No Tenderness/Swelling, Other (+1 edema BLE) Skin: No Rashes, No Breakdown, No Significant Lesion Neuro: Normal Gait, Normal Speech, Strength at 5/5 X4 Ext, Normal Tone, Sensation Intact Results Lab Laboratory Tests 08/15/19 04:30 A/P-Cardiology Admission Diagnosis PAF COPD Hx Lung CA T6 fx, s/p kyphoplasty. Assessment/Plan Paroxysmal atrial fibrillation/flutter with rapid response returned to sinus tachycardia, tolerating medication well. Continue to monitor Constipation, had laxative yesterday and suppository this morning, managed by Dr. Lehman COPD with episode of exacerbation, improved, managed by primary care team Acute psychosis, change in mental status, improved. Managed by medical team. Back pain, T6 fracture, s/p kyphoplasty with Dr. Wallace on 08/05/19 Metabolic acidosis with acute respiratory failure, better at this time. Hx of Lung CA- followed by Dr. Birmingham. Acute renal failure- improved, continue to monitor. Ex tobaccoism Obesity Patient was seen and evaluated with [place], examination performed, management plan was discussed, agree with the current scribed note, I made few changes to the note using Italic font Laying down in bed, still having abdominal cramps and discomfort, still constipated Lungs were clear to auscultation, heart is regular From cardiology standpoint I will continue on current medication, no changes are recommended, monitor blood pressure Clinical Quality Measures DVT/VTE Risk/Contraindication: Risk Factor Score Per Nursin RFS Level Per Nursing on Admit: 4+=Very High CHEYANNE FLORENTINO Aug 15, 2019 08:35 CHAGO EISENBERG MD Aug 15, 2019 11:03
--- NOTE | 2019-08-15 09:09 | Physical Therapy Daily Note ---
PT Daily Note-Current Subjective Pt laying prone at [facility] upon arrival. Pt agrees to PT. Pain Numeric Pain Scale: 10-Worst Possible Pain Comment: Pt reports pain from hemorrhoids and now impacted per Xray. Mental Status Patient Orientation: Person, Place, Situation Transfers SCALE: Activities may be completed with or without assistive devices. 7-Mjtxayrvld-meijuws completes the activity by him/herself with no assistance from a helper. 5-Set-up or Clean-up Assistance-helper sets up or cleans up; patient completes activity. [place] assists only prior to or following the activity. 4-Supervision or Touching Assistance-helper provides verbal cues and/or touching/steadying and/or contact guard assistance as patient completes activity. Assistance may be provided throughout the activity or intermittently. 3-Partial/Moderate Assistance-helper does LESS THAN HALF the effort. [place] lifts, holds or supports trunk or limbs, but provides less than half the effort. 2-Substantial/Maximal Assistance-helper does MORE THAN HALF the effort. [place] lifts or holds trunk or limbs and provides more than half the effort. 4-Ubmahdrvb-wzxjgh does ALL the effort. Patient does none of the effort to complete the activity. Or, the assistance of 2 or more helpers is required for the patient to complete the activity. If activity was not attempted, code reason: 7-Patient Refused. 9-Not Applicable-not attempted and the patient did not perform the activity before the current illness, exacerbation or injury. 10-Not Attempted due to Environmental Limitations-(lack of equipment, weather restraints, etc.). 88-Not Attempted due to Medical Conditions or Safety Concerns. Roll Left to Right (QC): 5 Sit to Lying (QC): 5 Sit to Stand (QC): 5 Chair/Nja-th-Lockv Xfer(QC): 7 Bed to/from Chair: 7 Car Transfer (QC): 7 Weight Bearing Right Lower Extremity: Right Weight Bearing/Tolerated Left Lower Extremity: Left Weight Bearing/Tolerated Gait Training Gait: 5 Distance: 10' Walk 10 feet (QC): 5 Walk 50 ft with 2 Turns(QC): 7 Walk 150 ft (QC): 7 Walking 10ft/uneven surface-QC: 7 Gait Persons Needed: 1 Gait Assistive Device: FWW SENIOR BEHAVIORAL SCIENTIST managed O2 line. Wheelchair Training Does the Pt Use a Wheelchair?: No Stair Training 1 Step (curb) (QC): 7 4 Steps (QC): 7 12 Steps (QC): 7 Balance Picking up an Object (QC): 7 Treatments Pt refused PT this morning stating she was in too much pt. SENIOR BEHAVIORAL SCIENTIST attempted to complete pt education for pain management and strategies to improve prognosis and PT Rx. Dr Blackwood arrives and pt advises how she has been feeling and the want to have surgery for hemorrhoids and impaction. OT arrives to co-treat due to pain and feeling of fatigue/weakness. Pt transfers to standing and ambulates to restroom to attempt BM after receiving laxatives and suppositories. Pt alert, sitting on toilet. Co-treat with PT, skills of 2 clinicians required for skilled instruction, decreased mobility and increased pain during transfers. PT focused on transfers and LE stability/strength. OT focused on toileting and UE placement with transfers. Pt agrees for therapy to be in the room to assist her, but states that she is not able to participate in therapy out of room. Assessment Current Status: Poor Progress Pt is limited by pain at this time. PT Access Director Goals Correction Goals PT Access Director Goals Time Frame: Aug 24, 2019 Sit to Lying (QC): 6 Lying-Sitting on Side/Bed(QC): 6 Sit to Stand (QC): 6 Roll Left to Right (QC): 6 Chair/Vxw-nq-Seanq Xfer(QC): 6 Car Transfer (QC): 6 Does the Patient Walk: Yes Walk 10 feet (QC): 6 Walk 10ft-Uneven Surface(QC): 6 Walk 50ft with 2 Turns (QC): 6 Walk 150 ft (QC): 6 Wheel 50 feet with 2 turns (QC: 9 1 Step (curb) (QC): 6 4 Steps (QC): 6 12 Steps (QC): 9 Picking up an Object (QC): 88 PT Plan Problem List Problem List: Activity Tolerance, Functional Strength, Safety, Gait Treatment/Plan Treatment Plan: Continue Plan of Care Treatment Plan: Bed Mobility, Education, Functional Activity Sravani, Functional Strength, Group Therapy, Gait, Safety, Therapeutic Exercise, Transfers Treatment Duration: Aug 11, 2019 Frequency: Modified Program (IRF) (02/05) Estimated Hrs Per Day: Other (02/05) Patient and/or Family Agrees t: Yes Safety Risks/Education Patient Education: Correct Positioning, Disease Process, Safety Issues Teaching Recipient: Patient Teaching Methods: Discussion Response to Teaching: Verbalize Understanding Time/GCodes Time In: 800 Time Out: 900 Total Billed Treatment Time: 60 Total Billed Treatment 1, FA x4 (60m) Co-treat with OT 30m ([id number]) ELEANOR ELIZABETH SENIOR BEHAVIORAL SCIENTIST Aug 15, 2019 09:09 POS
[2019-08-15] MEDS: POLYETHYLENE GLYCOL 17 GM (MIRALAX) PACK PO SCH ×2 (09:11→09:28)
[2019-08-15] MEDS: meTOproloL SUCCINATE 50 MG (TOPROL XL) TAB PO SCH (09:11)
[2019-08-15] MEDS: APIXABAN 5 MG (ELIQUIS) TABLET PO SCH (09:11)
[2019-08-15] MEDS: FUROSEMIDE 40 MG (LASIX) TAB PO SCH ×2 (09:11→09:24)
[2019-08-15] MEDS: SENNA W/DOCUSATE (SENOKOT S) TABLET PO SCH (09:11)
[2019-08-15] MEDS: DILTIAZEM 120 MG (CARDIZEM CD) CAP PO SCH (09:11)
[2019-08-15] MEDS: LIDOCAINE 4% (SALONPAS) PATCH TOP SCH (09:12)
[2019-08-15] MEDS: HYDROCORTISONE/PRAM 1% CREAM 30 GM TUBE TOP SCH (09:12)
[2019-08-15] MEDS: KCL 20 MEQ TAB (K-DUR) PO SCH (09:14)
[2019-08-15] MEDS: TRIAMCINOLONE 0.1% CR (KENALOG) 15 GM TUBE TOP SCH (09:26)
--- NOTE | 2019-08-15 09:45 | NUR ---
Notified patient's inability to tolerate therapy as her hemorrhoids/impaction is preventing her from participating. Dr. Blackwood recommending referral be made to [facility], for further medical mgmt and therapy, provided at a slower pace. Referral made.
[2019-08-15 10:05] VITALS: BP 120/75
--- NOTE | 2019-08-15 10:20 | Occupational Ther Daily Note ---
OT Current Status-Daily Note Subjective Pt alert, sitting on toilet. Co-treat with PT, skills of 2 clinicians required for skilled instruction, decreased mobility and increased pain during transfers. PT focused on transfers and LE stability/strength. OT focused on toileting and UE placement with transfers. Pt agrees for therapy to be in the room to assist her, but states that she is not able to participate in therapy out of room. Pain Numeric Pain Scale: 7 Location Body Site: Abdomen Pain Description: Burning, Sharp, Cramping Comment: hemorrhoid Mental Status/Objective Patient Orientation: Person, Place, Time, Situation Attachments: Central Line, Oxygen ADL-Treatment Pt declined to complete shower. Pt is impacted and has hemorrhoid pain, continual need to use bathroom so pt does not feel like it would be worth getting a shower. Pt also states that she is in too much pain to complete a lot of mobility or strengthening. Pt is able to transfer onto toilet with SBA and manipulates clothing with SBA. Pt states that since she has hemorrhoids that it is to difficult to wipe herself, assist to cleanse and apply ointment. Pt is able to complete clothing manipulation with supervision. Pt stands, propping self on counter to complete own oral care. Pt sits on EOB by self then min A with LE's for EOB to supine. Assist to scoot self over in bed and position comfortably. Cold pack to hemorrhoids and hot pack to abdomen for cramping. Pt takes increased time to complete all tasks due to decreased mobility and increased pain. After therapy, pt lying on L side with call light/phone in reach. All needs met in room. Therapy Code Descriptions/Definitions Functional Eagle Measure: 0=Not Assessed/NA 4=Minimal Assistance 1=Total Assistance 5=Supervision or Setup 2=Maximal Assistance 6=Modified Eagle 3=Moderate Assistance 7=Complete IndependenceSCALE: Activities may be completed with or without assistive devices. 6-Sfndfsaops-hespfwy completes the activity by him/herself with no assistance from a helper. 5-Set-up or Clean-up Assistance-helper sets up or cleans up; patient completes activity. Gore assists only prior to or following the activity. 4-Supervision or Touching Assistance-helper provides verbal cues and/or touching/steadying and/or contact guard assistance as patient completes activity. Assistance may be provided throughout the activity or intermittently. 3-Partial/Moderate Assistance-helper does LESS THAN HALF the effort. Gore lifts, holds or supports trunk or limbs, but provides less than half the effort. 2-Substantial/Maximal Assistance-helper does MORE THAN HALF the effort. Gore lifts or holds trunk or limbs and provides more than half the effort. 2-Fvyvuusxw-dtwhaz does ALL the effort. Patient does none of the effort to complete the activity. Or, the assistance of 2 or more helpers is required for the patient to complete the activity. If activity was not attempted, code reason: 7-Patient Refused. 9-Not Applicable-not attempted and the patient did not perform the activity before the current illness, exacerbation or injury. 10-Not Attempted due to Environmental Limitations-(lack of equipment, weather restraints, etc.). 88-Not Attempted due to Medical Conditions or Safety Concerns. 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 OT Short Term Goals Short Term Goals Time Frame: Aug 15, 2019 Eating(FIM): 5 Grooming(FIM): 5 Bathing(FIM): 3 Upper Body Dressing(FIM): 4 Lower Body Dressing(FIM): 3 Toileting(FIM): 3 Transfers (B,C,W/C) (FIM): 4 Toilet/Commode Transfer(FIM): 4 Shower Transfer(FIM): 4 Additional Short Term Goals: 1-Demonstrate ADL Tasks, 2-Verbalize Understanding, 3-ImproveStrength/Sravani 1=Demonstrate adherence to instructed precautions during ADL tasks. 2=Patient will verbalize/demonstrate understanding of assistive de vices/modifications for ADL. 3=Patient will improve strength/tolerance for activity to enable patient to perform ADL's. OT Communications Planner Goals Half-Way Goals Time Frame: Aug 22, 2019 Eating (QC): 6 Oral Hygiene (QC): 6 Shower/Bathe Self (QC): 4 Upper Body Dressing (QC): 6 Lower Body Dressing (QC): 6 On/Off Footwear (QC): 6 Toileting Hygiene (QC): 6 Toilet/Commode Transfer (QC): 6 Additional Goals: 1-Demonstrate ADL Tasks, 2-Verbalize Understanding, 3- ImproveStrength/Sravani 1=Demonstrate adherence to instructed precautions during ADL tasks. 2=Patient will verbalize/demonstrate understanding of assistive devices/modifications for ADL. 3=Patient will improve strength/tolerance for activity to enable patient to perform ADL's. OT Education/Plan Problem List/Assessment Assessment: Decreased Activ Tolerance, Decreased UE Strength, Impaired Self- Care Skills Discharge Recommendations Plan/Recommendations: Continue POC Treatment Plan/Plan of Care Patient would benefit from OT for education, treatment and training to promote independence in ADL's, mobility, safety and/or upper extremity function for ADL's. Plan of Care: ADL Retraining, Functional Mobility, Group Exercise/Act as Ind, UE Funct Exercise/Act Treatment Duration: Aug 22, 2019 Frequency: At least 5 of 7 days/Wk (IRF) Estimated Hrs Per Day: 1.5 hours per day Agreement: Yes Rehab Potential: Fair Time/GCodes Start Time: 08:30 Stop Time: 10:00 Total Time Billed (hr/min): 90 Billed Treatment Time 1 visit-ADL 5 (80 min) EX 1 (10 min) co-treat with PT [id number] individual [id number] CARINA SCHMIDT Aug 15, 2019 10:20
--- NOTE | 2019-08-15 10:26 | Progress Note ---
SAMMIE BRANDON MED STUDENT 08/15/19 1026: Progress Note Barriers to discharge/estimated discharge date: * Vitals: HR 94, RR 20, BP 120/75 * Abnormal labs: Hgb 4.4, Hct 30, Potassium 3.2, Chloride 97 * Initially admitted to ICU for COPD exacerbation * S/p kyphoplasty of T6 * Currently being treated for LLE cellulitis, venous stasis dermatitis, anemia * History of lung cancer, acute renal failure, hemorrhoids, HTN, anxiety * Developed constipation over the weekend * When seen today, she was distressed about her constipation, and about how it affected her ability to participate in therapy * She believes she can go back to living on her own at home, it [place] a ranch house so the only stairs are two steps to get in the door. She reports her son can put a rail in the shower for her, also reports that her son doesn't believe she can go back to living by herself. Nursing reports she fell over the weekend. * Psychiatric consultation suggests medication for anxiety and depression and/or outpatient psychotherapy, patient will consider it * PT/OT report she is able to perform ADLs with minor assistance, some without any assistance. However, she refuses to participate at times due to pain, or today due to constipation * Estimated discharge date: August 24 MELLY HEIN DO 08/15/190: Supervisory-Addendum Brief Verification & Attestation Participated in pt care: history, MDM, physical Personally performed: exam, history, MDM, supervision of care Care discussed with: Medical Student Procedures: n/a Results interpretation: Verified all documentation Verification and Attestation of Medical Student E/M Service A medical student performed and documented this service in my presence. I reviewed and verified all information documented by the medical student and made modifications to such information, when appropriate. I personally performed the physical exam and medical decision making. Melly Hein, Aug 15, 2019,20:39 SAMMIE BRANDON MED STUDENT Aug 15, 2019 10:26 MELLY DMAON DO Aug 15, 2019 20:40 POS
[2019-08-15] MEDS: MAGNESIUM CITRATE 300 ML BTL PO SCH (11:12)
--- NOTE | 2019-08-15 11:32 | NUR ---
Patient has been accepted to [facility] for admission to their acute medical unit. Patient will be admitted to Dr. Blackwood with Dr. Waddell consulted for surgical intervention not offered at [facility]. Telephoned patient's son to inform him of plan. Patient's son verbalized understanding.
--- NOTE | 2019-08-15 11:43 | NUR ---
Telephoned [facility] asking if they would be available for non-emergent ambulance transportation to [facility]. [facility] is available. Will call dispatch for time once discharge orders have been entered. Attempted to notify patient of plan; however, patient is in the bathroom at this time. Dr. Waddell on rehab unit and informed of plan to transfer patient to [facility]. Dr. Waddell verbalized understanding.
[2019-08-15] MEDS ORDERED: OXYC1TAB12 PO (12:16)
[2019-08-15] MEDS ORDERED: APIX5TAB PO (12:16)
[2019-08-15] MEDS ORDERED: PHEN57OI24 PR (12:16)
[2019-08-15] MEDS ORDERED: MELA3TAB PO (12:16)
[2019-08-15] MEDS ORDERED: ALPR0.254 PO (12:16)
[2019-08-15] MEDS ORDERED: SENN-20 PO (12:16)
[2019-08-15] MEDS ORDERED: POTA20TA8 PO (12:16)
[2019-08-15] MEDS ORDERED: HYDR25SU5 PR (12:16)
[2019-08-15] MEDS ORDERED: DILT120C94 PO (12:16)
[2019-08-15] MEDS ORDERED: DIBU30OI TOP (12:16)
[2019-08-15] MEDS ORDERED: POLY17PO31 PO (12:16)
[2019-08-15] MEDS ORDERED: HC A30CR4 TOP (12:16)
[2019-08-15] MEDS ORDERED: METO-370 PO (12:16)
[2019-08-15] MEDS ORDERED: MAGN296S4 PO (12:16)
[2019-08-15] MEDS ORDERED: TR1C15 TOP (12:16)
[2019-08-15] MEDS ORDERED: FURO40TA4 PO (12:16)
[2019-08-15] MEDS ORDERED: WTCHGPD TOP (12:16)
[2019-08-15] MEDS ORDERED: IPRA3AMP31 INH ×2 (12:16)
--- NOTE | 2019-08-15 12:17 | Discharge Summary ---
Diagnosis/Chief Complaint Date of Admission Aug 08, 2019 at 11:45 Date of Discharge Discharge Date: Aug 15, 2019 Discharge Diagnosis Assessment: T6 compression fracture pathological either osteoporosis or lung cancer status post kyphoplasty uncomplicated Acute on chronic respiratory failure requiring 14 days of MedSurg hospital course COPD Former smoker History of acute renal failure Severe anxiety Emotional mental problems Anemia Hypertension [id number] Severe debility Pruett catheter in place Severe weakness Left lower extremity cellulitis placed on Keflex Severe lower extremity edema ordered Ravi wraps Hemorrhoids Left lower extremity venous stasis dermatitis ordering triamcinolone cream twice a day Fall yesterday 08/12/19 Plan: Restart all meds for MedSurg Nebs Oxygen Inpatient rehabilitation protocol Complete Keflex Wide Ravi wraps Hemorrhoid treatment may need to be sent to [facility] [place]? Dr Waddell consultation is appreciated (1) Compression fracture of T6 vertebra Status: Acute (2) COPD (chronic obstructive pulmonary disease) Status: Chronic (3) Constipation Status: Acute (4) Lung mass (5) Lung cancer Status: Chronic (6) Altered mental status Status: Resolved Resolution Date/Time: 08/05/19 @ 16:39 (7) Leg edema Status: Acute (8) Acidosis Status: Acute (9) Acute on chronic respiratory failure Status: Acute (10) Acute renal failure Status: Acute (11) Anxiety Status: Acute (12) Elevated troponin Status: Acute (13) Elevation of cardiac enzymes Status: Acute (14) Sinus tachycardia Status: Acute (15) UTI (urinary tract infection) Status: Acute (16) Uncontrolled hypertension Status: Acute (17) Edema (18) Left leg cellulitis (19) Venous stasis dermatitis (20) Insomnia Discharge Summary Discharge Physical Examination Allergies: Coded Allergies: levofloxacin (Verified Allergy, Severe, TACHYCARDIA, 11/12/18) Penicillins (Verified Allergy, Unknown, FAMILY ALLERGY, 11/12/18) Uncoded Allergies: SURGICAL STEEL (Allergy, Intermediate, RASH, 05/10/18) Vitals & I&Os Vital Signs Date Time Temp Pulse Resp B/P (MAP) Pulse Ox O2 Delivery O2 Flow Rate FiO2 08/15/19 13:00 36.0 110 20 120/75 98 Nasal Cannula 3.00 08/15/19 10:05 32 General Appearance: Alert, Oriented X3, Cooperative, Moderate Distress (due to hemorrhoid pain) Respiratory: Clear to Auscultation Cardiovascular: Regular Rate Hospital Course Was the Problem List Reviewed?: Yes Hospital Course: Pt had a standard hospital course although was complicated with severe hemorrhoid pain which precluded her participation in therapy. She did have a fall when she got twisted up in her oxygen tubing but that was without injury. Her T6 compression fracture was much improved after the kyphoplasty that was done prior to transferring to rehab. AF was monitored closely and Lopressor was given for tachycardia and appreciate pulmonology and cardiology consultation. Pt remains on O2, we will be in the midst of transferring to [facility] [place] [place] swing bed and performing the hemorrhoid treatment in order for her to be able to have a slower recovery and to be able to go home on her own at [place]. Labs (last 24 hrs) Laboratory Tests 08/08/19 16:17: Glucometer 228H 08/08/19 21:32: Glucometer 171H 08/09/19 06:30: Glucometer 158H 08/09/19 09:41: White Blood Count 5.8, Red Blood Count 3.10L, Hemoglobin 9.4L, Hematocrit 30L, Mean Corpuscular Volume 98, Mean Corpuscular Hemoglobin 30, Mean Corpuscular Hemoglobin Concent 31L, Red Cell Distribution Width 17.6H, Platelet Count 275, Mean Platelet Volume 9.4, Neutrophils (%) (Auto) 87H, Lymphocytes (%) (Auto) 4L, Monocytes (%) (Auto) 8, Eosinophils (%) (Auto) 0, Basophils (%) (Auto) 1, Neutrophils # (Auto) 5.1, Lymphocytes # (Auto) 0.2L, Monocytes # (Auto) 0.5, Eosinophils # (Auto) 0.0, Basophils # (Auto) 0.0, Neutrophils % (Manual) 84, Lymphocytes % (Manual) 5, Monocytes % (Manual) 5, Eosinophils % (Manual) 0, Basophils % (Manual) 0, Metamyelocytes % 1, Myelocytes % 2, Band Neutrophils 3, Polychromasia SLIGHT, Anisocytosis SLIGHT, Sodium Level 142, Potassium Level 3.6, Chloride Level 101, Carbon Dioxide Level 29, Anion Gap 12, Blood Urea Nitrogen 16, Creatinine 0.75, Estimat Glomerular Filtration Rate > 60, BUN/Creatinine Ratio 21, Glucose Level 188H, Calcium Level 9.1, Corrected Calcium 9.6, Total Bilirubin 0.6, Aspartate Amino Transf (AST/SGOT) 23, Alanine Aminotransferase (ALT/SGPT) 61H, Alkaline Phosphatase 96, Total Protein 5.6L, Albumin 3.4 08/09/19 11:47: Glucometer 163H 08/09/19 14:22: Urine Color YELLOW, Urine Clarity CLEAR, Urine pH 6.5, Urine Specific [place] 1.015L, Urine Protein 2+H, Urine Glucose (UA) 2+H, Urine Ketones NEGATIVE, Urine Nitrite NEGATIVE, Urine Bilirubin NEGATIVE, Urine Urobilinogen NORMAL, Urine Leukocyte Esterase 1+H, Urine RBC (Auto) 4+H, Urine RBC >100H, Urine WBC 5-10H, Urine Crystals NONE, Urine Bacteria TRACE, Urine Casts PRESENT, Urine Hyaline Casts 0-2H, Urine Mucus SMALLH, Urine Culture Indicated YES 08/09/19 15:56: Glucometer 291H 08/09/19 21:33: Glucometer 131H 08/10/19 05:48: Glucometer 228H 08/10/19 11:55: Glucometer 178H 08/11/19 05:24: Glucometer 274H 08/11/19 11:39: Glucometer 167H 08/11/19 17:22: Glucometer 197H 08/11/19 20:27: Glucometer 181H 08/12/19 05:21: Glucometer 159H 08/12/19 11:00: Glucometer 183H 08/12/19 16:57: Glucometer 187H 08/12/19 21:42: Glucometer 249H 08/13/19 07:02: Glucometer 138H 08/13/19 11:25: Glucometer 202H 08/13/19 15:34: Glucometer 151H 08/13/19 20:37: Glucometer 200H 08/14/19 05:42: Glucometer 102 08/14/19 11:25: Glucometer 168H 08/14/19 16:23: Glucometer 257H 08/14/19 21:17: Glucometer 92 08/15/19 04:30: Glucometer 119H, White Blood Count 5.4, Red Blood Count 3.06L, Hemoglobin 9.4L, Hematocrit 30L, Mean Corpuscular Volume 99, Mean Corpuscular Hemoglobin 31, Mean Corpuscular Hemoglobin Concent 31L, Red Cell Distribution Width 18.5H, Platelet Count 308, Mean Platelet Volume 9.6, Neutrophils (%) (Auto) 81H, Lymphocytes (%) (Auto) 8L, Monocytes (%) (Auto) 10, Eosinophils (%) (Auto) 1, Basophils (%) (Auto) 0, Neutrophils # (Auto) 4.4, Lymphocytes # (Auto) 0.4L, Monocytes # (Auto) 0.6, Eosinophils # (Auto) 0.0, Basophils # (Auto) 0.0, Sodium Level 139, Potassium Level 3.2L, Chloride Level 97L, Carbon Dioxide Level 29, Anion Gap 13, Blood Urea Nitrogen 17, Creatinine 0.71, Estimat Glomerular Filtration Rate > 60, BUN/Creatinine Ratio 24, Glucose Level 112H, Calcium Level 8.8, Corrected Calcium 9.4, Total Bilirubin 0.5, Aspartate Amino Transf (AST/SGOT) 21, Alanine Aminotransferase (ALT/SGPT) 38, Alkaline Phosphatase 105, Total Protein 5.5L, Albumin 3.3 08/15/19 11:17: Glucometer 129H Microbiology 08/09/19 Urine Culture - Final, Complete NO GROWTH Pending Labs Microbiology Date/Time Source Procedure Growth Status 08/09/19 14:22 Urine Indwelling Cath (Correction) Urine Culture - Final NO GROWTH Complete Laboratory Tests 08/08/19 16:17: Glucometer 228 08/08/19 21:32: Glucometer 171 08/09/19 06:30: Glucometer 158 08/09/19 09:41: White Blood Count 5.8, Red Blood Count 3.10, Hemoglobin 9.4, Hematocrit 30, Mean Corpuscular Volume 98, Mean Corpuscular Hemoglobin 30, Mean Corpuscular Hemoglobin Concent 31, Red Cell Distribution Width 17.6, Platelet Count 275, Mean Platelet Volume 9.4, Neutrophils (%) (Auto) 87, Lymphocytes (%) (Auto) 4, Monocytes (%) (Auto) 8, Eosinophils (%) (Auto) 0, Basophils (%) (Auto) 1, Neutrophils # (Auto) 5.1, Lymphocytes # (Auto) 0.2, Monocytes # (Auto) 0.5, Eosinophils # (Auto) 0.0, Basophils # (Auto) 0.0, Neutrophils % (Manual) 84, Lymphocytes % (Manual) 5, Monocytes % (Manual) 5, Eosinophils % (Manual) 0, Basophils % (Manual) 0, Metamyelocytes % 1, Myelocytes % 2, Band Neutrophils 3, Polychromasia SLIGHT, Anisocytosis SLIGHT, Sodium Level 142, Potassium Level 3.6, Chloride Level 101, Carbon Dioxide Level 29, Anion Gap 12, Blood Urea Nitrogen 16, Creatinine 0.75, Estimat Glomerular Filtration Rate > 60, BUN/Creatinine Ratio 21, Glucose Level 188, Calcium Level 9.1, Corrected Calcium 9.6, Total Bilirubin 0.6, Aspartate Amino Transf (AST/SGOT) 23, Alanine Aminotransferase (ALT/SGPT) 61, Alkaline Phosphatase 96, Total Protein 5.6, Albumin 3.4 08/09/19 11:47: Glucometer 163 08/09/19 14:22: Urine Color YELLOW, Urine Clarity CLEAR, Urine pH 6.5, Urine Specific [place] 1.015, Urine Protein 2+, Urine Glucose (UA) 2+, Urine Ketones NEGATIVE, Urine Nitrite NEGATIVE, Urine Bilirubin NEGATIVE, Urine Urobilinogen NORMAL, Urine Leukocyte Esterase 1+, Urine RBC (Auto) 4+, Urine RBC >100, Urine WBC 5-10, Urine Crystals NONE, Urine Bacteria TRACE, Urine Casts PRESENT, Urine Hyaline Casts 0-2, Urine Mucus SMALL, Urine Culture Indicated YES 08/09/19 15:56: Glucometer 291 08/09/19 21:33: Glucometer 131 08/10/19 05:48: Glucometer 228 08/10/19 11:55: Glucometer 178 08/11/19 05:24: Glucometer 274 08/11/19 11:39: Glucometer 167 08/11/19 17:22: Glucometer 197 08/11/19 20:27: Glucometer 181 08/12/19 05:21: Glucometer 159 08/12/19 11:00: Glucometer 183 08/12/19 16:57: Glucometer 187 08/12/19 21:42: Glucometer 249 08/13/19 07:02: Glucometer 138 08/13/19 11:25: Glucometer 202 08/13/19 15:34: Glucometer 151 08/13/19 20:37: Glucometer 200 08/14/19 05:42: Glucometer 102 08/14/19 11:25: Glucometer 168 08/14/19 16:23: Glucometer 257 08/14/19 21:17: Glucometer 92 08/15/19 04:30: Glucometer 119, White Blood Count 5.4, Red Blood Count 3.06, Hemoglobin 9.4, Hematocrit 30, Mean Corpuscular Volume 99, Mean Corpuscular Hemoglobin 31, Mean Corpuscular Hemoglobin Concent 31, Red Cell Distribution Width 18.5, Platelet Count 308, Mean Platelet Volume 9.6, Neutrophils (%) (Auto) 81, Lymphocytes (%) (Auto) 8, Monocytes (%) (Auto) 10, Eosinophils (%) (Auto) 1, Basophils (%) (Auto) 0, Neutrophils # (Auto) 4.4, Lymphocytes # (Auto) 0.4, Monocytes # (Auto) 0.6, Eosinophils # (Auto) 0.0, Basophils # (Auto) 0.0, Sodium Level 139, Potassium Level 3.2, Chloride Level 97, Carbon Dioxide Level 29, Anion Gap 13, Blood Urea Nitrogen 17, Creatinine 0.71, Estimat Glomerular Filtration Rate > 60, BUN/Creatinine Ratio 24, Glucose Level 112, Calcium Level 8.8, Corrected Calcium 9.4, Total Bilirubin 0.5, Aspartate Amino Transf (AST/SGOT) 21, Alanine Aminotransferase (ALT/SGPT) 38, Alkaline Phosphatase 105, Total Protein 5.5, Albumin 3.3 08/15/19 11:17: Glucometer 129 Discharge Home Medications: Active Scripts Active Melatonin 3 Mg Tablet 3 Mg PO HS PRN 30 Days Hemorrhoidal Ointment (Phenyleph/Mineral Oil/Petrolat) 57 Gm Oint.appl 0 Gm VA QID PRN 30 Days A.e.r Pads (Witch Adrianne/Glycerin) 40 Ea Pad 0 Ea TOP QID PRN 30 Days Dibucaine 30 Gm Oint 0 Gm TOP QID PRN 30 Days Triamcinolone Acetonide 0.1% Cream (Triamcinolone Acet) 15 Gm Cr 0 Gm TOP BID 30 Days Hydrocort-Pramoxine 1%-1% Crm (Hydrocortisone/Pramoxine) 30 Gm Cream.appl 0 Gm TOP BID 30 Days Hydrocortisone Acetate 25 Mg Supp.rect 1 Ea VA Q8H PRN 30 Days Senna-Time S Tablet (Sennosides/Docusate Sodium) 1 Each Tablet 1 Ea PO BID 30 Days Polyethylene Glycol 3350 17 Gm Powd.pack 17 Gm PO TID 30 Days Citroma (Magnesium Citrate) 296 Ml Solution 150 Ml PO BID 30 Days Furosemide 40 Mg Tablet 40 Mg PO DAILY 30 Days Klor-Con M20 (Potassium Chloride) 20 Meq Tab.er.prt 20 Meq PO DAILY@0700 30 Days Alprazolam 0.25 Mg Tablet 0.125 Mg PO Q4H PRN 30 Days Percocet 10-325 mg Tablet (Oxycodone HCl/Acetaminophen) 1 Each Tablet 1 Tab PO Q4HR PRN 30 Days Diltiazem 24Hr Cd (Diltiazem HCl) 120 Mg Cap.er.24h 120 Mg PO DAILY 30 Days Metoprolol Succinate 50 Mg Tab.er.24h 50 Mg PO DAILY 30 Days Eliquis (Apixaban) 5 Mg Tablet 5 Mg PO BID 30 Days Iprat-Albut 0.5-3(2.5) mg/3 ml (Ipratropium/Albuterol Sulfate) 3 Ml Ampul.neb 3 Ml INH RTQ2H PRN 30 Days Iprat-Albut 0.5-3(2.5) mg/3 ml (Ipratropium/Albuterol Sulfate) 3 Ml Ampul.neb 3 Ml INH RTQID 30 Days Reported Methimazole 5 Mg Tablet 5 Mg PO DAILY Fluticasone Propionate 16 Gm [place].susp 1 [place] NS DAILY Cetirizine HCl 10 Mg Tablet 10 Mg PO DAILY Metoprolol Tartrate 25 Mg Tablet 25 Mg PO BID Dulera 200 Mcg/5 Mcg Inhaler (Mometasone/Formoterol) 13 Gm Hfa.aer.ad 2 Puff IH BID Montelukast Sodium 10 Mg Tablet 10 Mg PO DAILY Instructions to patient/family Please see electronic discharge instructions given to patient. Diagnosis/Problems Diagnosis/Problems (1) Compression fracture of T6 vertebra Status: Acute (2) COPD (chronic obstructive pulmonary disease) Status: Chronic (3) Constipation Status: Acute (4) Lung mass (5) Lung cancer Status: Chronic (6) Altered mental status Status: Resolved Resolution Date/Time: 08/05/19 @ 16:39 (7) Leg edema Status: Acute (8) Acidosis Status: Acute (9) Acute on chronic respiratory failure Status: Acute (10) Acute renal failure Status: Acute (11) Anxiety Status: Acute (12) Elevated troponin Status: Acute (13) Elevation of cardiac enzymes Status: Acute (14) Sinus tachycardia Status: Acute (15) UTI (urinary tract infection) Status: Acute (16) Uncontrolled hypertension Status: Acute (17) Edema (18) Left leg cellulitis (19) Venous stasis dermatitis (20) Insomnia Clinical Quality Measures DVT/VTE Risk/Contraindication: Risk Factor Score Per Nursin RFS Level Per Nursing on Admit: 4+=Very High CHARLY HEIN DO Aug 15, 2019 12:16 POS
--- NOTE | 2019-08-15 12:19 | NUR ---
[facility] dispatch called for EMS transport to [facility].
--- NOTE | 2019-08-15 12:45 | NUR ---
[facility] EMS personnel on unit to provide transport to [facility]. Patient's son on unit. Patient and patient's son verbalize understanding of transfer to [facility] and are in agreement of plan.
[2019-08-15 13:00] VITALS: BP 120/75
--- NOTE | 2019-08-15 13:00 | NUR ---
Pt transferred per EMS to [facility] under care of Dr. Blackwood. Pt wanting to have hemorrhoids taken care of over there.
--- NOTE | 2019-08-15 13:23 | NUR ---
Nsg report has been given to accepting RN, , at [facility].
--- NOTE | 2019-08-15 13:34 | Therapy Team Discharge Summary ---
Therapy Discharge Summary Discharge Recommendations Date of Discharge 08-15-19 Therapy D/C Recommendations: Other, See Comments (Pt. discharged to acute care for medical condition.) Occupational Therapy Pt. seen at this facility to increase overall independence with daily skills such as bathing/dressing/toileting. Due to reported medical concerns, (hemorrhoids, constipation), pt. did not meet many goals. Pt. reported pain and concern that often controlled the therapy session. Pt. often declined dressing/showering due to need to sit on toilet. Pt. discharging to acute setting to address concerns with this matter. Decreased Activ Tolerance, Decreased UE Strength, Impaired I ADL's, Impaired Self-Care Skills PT Expander Goals Chcf Goals PT Chcf Goals Time Frame: Aug 24, 2019 Roll Left to Right (QC): 6 Sit to Lying (QC): 6 Lying-Sitting on Side/Bed(QC): 6 Sit to Stand (QC): 6 Chair/Imj-md-Qudyp Xfer(QC): 6 Car Transfer (QC): 6 Does the Patient Walk: Yes Walk 10 feet (QC): 6 Walk 10ft-Uneven Surface(QC): 6 Walk 50ft with 2 Turns (QC): 6 Walk 150 ft (QC): 6 Wheel 50 feet with 2 turns (QC: 9 1 Step (curb) (QC): 6 4 Steps (QC): 6 12 Steps (QC): 9 Picking up an Object (QC): 88 OT Expander Goals Chcf Goals Time Frame: Aug 22, 2019 Eating (QC): 6 (not met. Pt. refusing to eat due to constipation.) Oral Hygiene (QC): 6 (met) Shower/Bathe Self (QC): 4 (met) Upper Body Dressing (QC): 6 (not met- Declining clothing.) Lower Body Dressing (QC): 6 (not met) On/Off Footwear (QC): 6 (not met) Toileting Hygiene (QC): 6 (not met due to reported pain from hemorrhoids.) Toilet/Commode Transfer (QC): 6 (not met) Additional Goals: 1-Demonstrate ADL Tasks, 2-Verbalize Understanding, 3- ImproveStrength/Sravani 1=Demonstrate adherence to instructed precautions during ADL tasks. 2=Patient will verbalize/demonstrate understanding of assistive devices/modifications for ADL. 3=Patient will improve strength/tolerance for activity to enable patient to perform ADL's. SHAMIKA PANDYA OT Aug 15, 2019 13:34 POS
--- NOTE | 2019-08-15 14:29 | Therapy Team Discharge Summary ---
Therapy Discharge Summary Discharge Recommendations Date of Discharge 08/15/2019 Therapy D/C Recommendations: Other, See Comments (Pt. discharged to acute care for medical condition.) Physical Therapy This patient transferred to ARU post acute hospital stay due to COPD exac with complications; in addition, she had a t6 compression fx and post kyphoplasty. Prior to acute stay, pt was mod indep with all functional mobility and living alone with assist from her son as necessary. Upon admission to ARU, pt was mod corbin twith transfers, walked 20 ft with min assist and unsafe to attempt stairs. Treatment consisted of functional strength and balance training with focus on functional activity tolerance to promote improved transfers and gait. At last visit, pt was set up with bed mobiltiy and sit to stand, she walked 10 ft with set up assist; unable to assess stairs. Pt to transfer to outside facility for medical managment and continued therapy services. Will DC from this facility at this time. Occupational Therapy Decreased Activ Tolerance, Decreased UE Strength, Impaired I ADL's, Impaired Self-Care Skills PT Correction Goals Correction Goals PT [facility] Technician Goals Time Frame: Aug 24, 2019 Roll Left to Right (QC): 6 Sit to Lying (QC): 6 Lying-Sitting on Side/Bed(QC): 6 Sit to Stand (QC): 6 Chair/Pxu-jf-Oinhl Xfer(QC): 6 Car Transfer (QC): 6 Does the Patient Walk: Yes Walk 10 feet (QC): 6 Walk 10ft-Uneven Surface(QC): 6 Walk 50ft with 2 Turns (QC): 6 Walk 150 ft (QC): 6 Wheel 50 feet with 2 turns (QC: 9 1 Step (curb) (QC): 6 4 Steps (QC): 6 12 Steps (QC): 9 Picking up an Object (QC): 88 Pt was generally Set up assist with bed mobiltiy and transfers; as well as gait. OT Correction Goals Correction Goals Time Frame: Aug 22, 2019 Eating (QC): 6 (not met. Pt. refusing to eat due to constipation.) Oral Hygiene (QC): 6 (met) Shower/Bathe Self (QC): 4 (met) Upper Body Dressing (QC): 6 (not met- Declining clothing.) Lower Body Dressing (QC): 6 (not met) On/Off Footwear (QC): 6 (not met) Toileting Hygiene (QC): 6 (not met due to reported pain from hemorrhoids.) Toilet/Commode Transfer (QC): 6 (not met) Additional Goals: 1-Demonstrate ADL Tasks, 2-Verbalize Understanding, 3-I mproveStrength/Sravani 1=Demonstrate adherence to instructed precautions during ADL tasks. 2=Patient will verbalize/demonstrate understanding of assistive devices/modifications for ADL. 3=Patient will improve strength/tolerance for activity to enable patient to perform ADL's. CARINA TOVAR PT Aug 15, 2019 14:29 POS
[2019-08-15] MEDS ORDERED: RT-ALBUTEROL/IPRATROPIUM 3 ML (DUONEB) VIAL INH SCH (15:00)
== END 2019-08-15 13:00 | disposition short-term general hospital (02) | DRG 560 ==
PROVIDERS: ADMIT Internal Medicine; ATTEND Internal Medicine
DX: M80.08XD Age-related osteoporosis with current pathological fracture, vertebra(e), subsequent encounter for fracture with routine healing (principal); J43.9 Emphysema, unspecified; C34.91 Malignant neoplasm of unspecified part of right bronchus or lung; R41.0 Disorientation, unspecified; L03.116 Cellulitis of left lower limb; N39.0 Urinary tract infection, site not specified; I47.1 Supraventricular tachycardia; N17.9 Acute kidney failure, unspecified; Z66 Do not resuscitate; F23 Brief psychotic disorder; I48.0 Paroxysmal atrial fibrillation; I10 Essential (primary) hypertension; F32.9 Major depressive disorder, single episode, unspecified; E66.9 Obesity, unspecified; R60.0 Localized edema; F41.9 Anxiety disorder, unspecified; I87.2 Venous insufficiency (chronic) (peripheral); D64.9 Anemia, unspecified; R53.1 Weakness; K59.09 Other constipation; K64.2 Third degree hemorrhoids; R32 Unspecified urinary incontinence; R33.9 Retention of urine, unspecified; Z87.891 Personal history of nicotine dependence; Z68.32 Body mass index [BMI] 32.0-32.9, adult
CPT/HCPCS: 36415; 72110; 74019; 80053; 81000; 82962; 85007; 85025; 85027; 87088; 94640; 94760

== ENCOUNTER → 2019-08-18 | Outpatient (CLI) | payer OTHER, MEDICARE, MEDICAID ==
[~2019-08-18] MED LIST changes: +ALPR0.254 PO; +APIX5TAB PO; +DIBU30OI TOP; +DILT120C94 PO; +FURO40TA4 PO; +HC A30CR4 TOP; +HYDR25SU5 PR; +IPRA3AMP31 INH; +MAGN296S4 PO; +MELA3TAB PO; +METO-370 PO; +OXYC1TAB12 PO; +PHEN57OI24 PR; +POLY17PO31 PO; +POTA20TA8 PO; +SENN-20 PO; +TR1C15 TOP; +WTCHGPD TOP
[2019-08-18 07:05] LABS: BASOPHILS % (AUTO) 1 % (0-10); EOSINOPHILS # (AUTO) 0.1 10^3/uL (0.0-0.3); EOSINOPHILS % (AUTO) 1 % (0-10); HEMATOCRIT 29 % (35-52); HEMOGLOBIN 8.8 G/DL (11.5-16.0); LYMPHOCYTES # (AUTO) 0.5 X 10^3 (1.0-4.0); LYMPHOCYTES % (AUTO) 10 % (12-44); MEAN CORPUSCULAR HEMOGLOBIN 31 PG (25-34); MEAN CORPUSCULAR HGB CONC 30 G/DL (32-36); MEAN CORPUSCULAR VOLUME 102 FL (80-99); MEAN PLATELET VOLUME 9.6 FL (7.4-10.4); MONOCYTES # (AUTO) 0.6 X 10^3 (0.0-1.0); MONOCYTES % (AUTO) 15 % (0-12); NEUTROPHILS # (AUTO) 3.2 X 10^3 (1.8-7.8); NEUTROPHILS % (AUTO) 73 % (42-75); PLATELET COUNT 340 10^3/uL (130-400); RED CELL DISTRIBUTION WIDTH 19.4 % (10.0-14.5); WHITE BLOOD COUNT 4.3 10^3/uL (4.3-11.0)
== END ==
LOC: LABNPT 06:53
PROVIDERS: ATTEND Internal Medicine
DX: Z01.89 Encounter for other specified special examinations (principal)
CPT/HCPCS: 85025

== ENCOUNTER → 2019-09-27 | Outpatient (CLI) | payer MEDICARE, MEDICAID ==
--- NOTE | 2019-09-27 13:44 | Diagnostic Imaging Report ---
INDICATION: Postmenopausal screening for osteoporosis. COMPARISON: None. FINDINGS: AP Spine L1-L4: [BMD (g/cm2): 1.022] [T-Score: -1.5] [Z-Score: -0.6] [BMD Previous: NA] [BMD % Change: NA] LT Hip Neck: [BMD (g/cm2): 0.689] [T-Score: -2.5] [Z-Score: -1.4] LT Hip Total: [BMD (g/cm2):0.743] [T-Score:-2.1] [Z-Score: -1.2] [BMD Previous: NA] [BMD % Change: NA] RT Hip Neck: [BMD (g/cm2):0.700] [T-Score:-2.4] [Z-Score:-1.3] RT Hip Total: [BMD (g/cm2):0.764] [T-score:-1.9] [Z-Score:-1.1] [BMD Previous:NA] [BMD % Change:NA] *Indicates significant change from prior examination based on 95% confidence level. World Health Organization criteria for BMD interpretation classify patients as Normal (T-score at or above -1.0), Osteopenic (T-score between -1.0 and -2.5) or Osteoporotic (T-score at or below -2.5). LIMITATIONS AND MODIFICATION: None. FRACTURE RISK (FRAX SCORE): The ten year probability of (%): Major Osteoporotic Fracture: [33.1] Hip Fracture: [9..2] IMPRESSION: 1. Osteopenia (Low bone mass). 2. Baseline examination. 3. See below National Osteoporosis Foundation guidelines on when to potentially initiate pharmacologic therapy. Based on the National Osteoporosis Foundation Guidelines, pharmacologic treatment should be initiated in any of the following, unless clinical conditions suggest otherwise: * Any patient with prior fragility fracture of the hip or vertebrae. A spine fracture indicates 5X risk for subsequent spine fracture and 2X risk for subsequent hip fracture. * Osteoporosis (T-score <-2.5). * Postmenopausal women and men age 50 and older with low bone mass/osteopenia (T-score between -1.0 and -2.5) by DXA and 10-year major osteoporotic fracture greater than 20% or a 10-year probability of hip fracture greater than 3%. These fracture risks are supplied above in the FRAX score, if applicable. * Clinician judgement and/or patient preferences may indicate treatment for people with 10-year fracture probabilities above or below these levels. Dictated by: Dictated on workstation # [id number]
== END ==
LOC: RAD 09:57
PROVIDERS: ATTEND Nurse Practitioner Family
DX: Z13.820 Encounter for screening for osteoporosis (principal); S22.000A Wedge compression fracture of unspecified thoracic vertebra, initial encounter for closed fracture; M85.80 Other specified disorders of bone density and structure, unspecified site; X58.XXXA Exposure to other specified factors, initial encounter; Z78.0 Asymptomatic menopausal state
CPT/HCPCS: 77080

== ENCOUNTER 2019-11-09 10:24 | Outpatient (RCR) | payer MEDICARE, MEDICAID ==
[2019-09-07 13:50] LABS: BASOPHILS % (AUTO) 0 % (0-10); EOSINOPHILS % (AUTO) 0 % (0-10); HEMATOCRIT 31 % (35-52); HEMOGLOBIN 9.1 G/DL (11.5-16.0); LYMPHOCYTES # (AUTO) 0.2 X 10^3 (1.0-4.0); LYMPHOCYTES % (AUTO) 3 % (12-44); MEAN CORPUSCULAR HEMOGLOBIN 29 PG (25-34); MEAN CORPUSCULAR HGB CONC 30 G/DL (32-36); MEAN CORPUSCULAR VOLUME 99 FL (80-99); MEAN PLATELET VOLUME 9.8 FL (7.4-10.4); MONOCYTES # (AUTO) 0.4 X 10^3 (0.0-1.0); MONOCYTES % (AUTO) 5 % (0-12); NEUTROPHILS # (AUTO) 6.9 X 10^3 (1.8-7.8); NEUTROPHILS % (AUTO) 92 % (42-75); PLATELET COUNT 297 10^3/uL (130-400); RED CELL DISTRIBUTION WIDTH 15.8 % (10.0-14.5); WHITE BLOOD COUNT 7.5 10^3/uL (4.3-11.0)
[2019-09-07 14:06] LABS: ALANINE AMINOTRANSFERASE 107 U/L (0-55); ALBUMIN 3.9 GM/DL (3.2-4.5); ALKALINE PHOSPHATASE 159 U/L (40-136); BILIRUBIN,TOTAL 0.4 MG/DL (0.1-1.0); BUN/CREATININE RATIO 13; CARBON DIOXIDE 27 MMOL/L (21-32); CHLORIDE 108 MMOL/L (98-107); CREATININE SERUM 0.68 MG/DL (0.60-1.30); GFR ESTIMATED > 60; GLUCOSE 173 MG/DL (70-105); POTASSIUM 3.5 MMOL/L (3.6-5.0); SODIUM 143 MMOL/L (135-145); TOTAL PROTEIN 6.1 GM/DL (6.4-8.2)
[2019-10-05 13:16] LABS: BASOPHILS % (AUTO) 0 % (0-10); EOSINOPHILS % (AUTO) 1 % (0-10); HEMATOCRIT 29 % (35-52); HEMOGLOBIN 8.7 G/DL (11.5-16.0); LYMPHOCYTES # (AUTO) 0.2 X 10^3 (1.0-4.0); LYMPHOCYTES % (AUTO) 3 % (12-44); MEAN CORPUSCULAR HEMOGLOBIN 27 PG (25-34); MEAN CORPUSCULAR HGB CONC 30 G/DL (32-36); MEAN CORPUSCULAR VOLUME 91 FL (80-99); MEAN PLATELET VOLUME 9.7 FL (7.4-10.4); MONOCYTES # (AUTO) 0.5 X 10^3 (0.0-1.0); MONOCYTES % (AUTO) 8 % (0-12); NEUTROPHILS # (AUTO) 5.6 X 10^3 (1.8-7.8); NEUTROPHILS % (AUTO) 89 % (42-75); PLATELET COUNT 277 10^3/uL (130-400); RED CELL DISTRIBUTION WIDTH 15.6 % (10.0-14.5); WHITE BLOOD COUNT 6.3 10^3/uL (4.3-11.0)
[2019-10-05 13:36] LABS: ALANINE AMINOTRANSFERASE 54 U/L (0-55); ALBUMIN 3.9 GM/DL (3.2-4.5); ALKALINE PHOSPHATASE 159 U/L (40-136); BILIRUBIN,TOTAL 0.4 MG/DL (0.1-1.0); BUN/CREATININE RATIO 14; CALCIUM 9.4 MG/DL (8.5-10.1); CARBON DIOXIDE 27 MMOL/L (21-32); CHLORIDE 108 MMOL/L (98-107); CREATININE SERUM 0.72 MG/DL (0.60-1.30); GFR ESTIMATED > 60; GLUCOSE 191 MG/DL (70-105); POTASSIUM 3.4 MMOL/L (3.6-5.0); SODIUM 145 MMOL/L (135-145); TOTAL PROTEIN 6.1 GM/DL (6.4-8.2)
[~2019-11-09 10:24] MED LIST changes: +ALTEPLASE 2 MG (CATHFLO) CANCER CENTER IV ONE; -BARIUM SUSPENSION 2.1% (VANILLA SILQ) 450 ML PO ONE; -CATHETER FLUSH 10 ML SYR IV PRN; +DURVALUMAB IV SCH; -HOLD METFORMIN - RECEIVED CONTRAST 20 ML VIAL IV SCH; -IOHEXOL 350 MG/ML 100 ML (OMNIPAQUE 350) VIAL IV ONE; -NS 100 ML (IVPB) BAG IV ONE; +NS IV 500 ML (CANCER CENTER) IV SCH; +NS IV SCH
[2019-11-09] MEDS ORDERED: ALTEPLASE 2 MG (CATHFLO) CANCER CENTER IV ONE (10:45)
[2019-11-09 11:32] LABS: BASOPHILS % (AUTO) 0 % (0-10); EOSINOPHILS % (AUTO) 0 % (0-10); HEMATOCRIT 33 % (35-52); HEMOGLOBIN 9.8 G/DL (11.5-16.0); LYMPHOCYTES # (AUTO) 0.4 X 10^3 (1.0-4.0); LYMPHOCYTES % (AUTO) 4 % (12-44); MEAN CORPUSCULAR HEMOGLOBIN 25 PG (25-34); MEAN CORPUSCULAR HGB CONC 30 G/DL (32-36); MEAN CORPUSCULAR VOLUME 84 FL (80-99); MEAN PLATELET VOLUME 10.5 FL (7.4-10.4); MONOCYTES # (AUTO) 0.5 X 10^3 (0.0-1.0); MONOCYTES % (AUTO) 6 % (0-12); NEUTROPHILS # (AUTO) 8.3 X 10^3 (1.8-7.8); NEUTROPHILS % (AUTO) 90 % (42-75); PLATELET COUNT 264 10^3/uL (130-400); RED CELL DISTRIBUTION WIDTH 16.7 % (10.0-14.5); WHITE BLOOD COUNT 9.2 10^3/uL (4.3-11.0)
[2019-11-09 11:54] LABS: ALANINE AMINOTRANSFERASE 53 U/L (0-55); ALKALINE PHOSPHATASE 150 U/L (40-136); BILIRUBIN,TOTAL 0.2 MG/DL (0.1-1.0); BUN/CREATININE RATIO 17; CALCIUM 9.5 MG/DL (8.5-10.1); CARBON DIOXIDE 23 MMOL/L (21-32); CHLORIDE 109 MMOL/L (98-107); CREATININE SERUM 0.86 MG/DL (0.60-1.30); GFR ESTIMATED > 60; GLUCOSE 199 MG/DL (70-105); POTASSIUM 4.3 MMOL/L (3.6-5.0); SODIUM 143 MMOL/L (135-145); TOTAL PROTEIN 6.4 GM/DL (6.4-8.2)
== END 2019-12-06 | disposition home or self-care (01) ==
LOC: ONC 10:24
PROVIDERS: ATTEND Internal Medicine Hematology & Oncology
DX: Z51.11 Encounter for antineoplastic chemotherapy (principal); C34.31 Malignant neoplasm of lower lobe, right bronchus or lung; J43.9 Emphysema, unspecified; J45.909 Unspecified asthma, uncomplicated; Z90.49 Acquired absence of other specified parts of digestive tract; Z87.891 Personal history of nicotine dependence; Z98.890 Other specified postprocedural states; Z79.899 Other long term (current) drug therapy
CPT/HCPCS: 36415; 36591; 36593; 80053; 82306; 85025; 96413

== ENCOUNTER → 2019-11-09 | Outpatient (CLI) | payer MEDICARE, MEDICAID ==
[~2019-11-09] MED LIST changes: +BARIUM SUSPENSION 2.1% (VANILLA SILQ) 450 ML PO ONE; +CATHETER FLUSH 10 ML SYR IV PRN; +DILT120C88 PO; -DILT120C94 PO; -DILT240C PO; +DILT240C91 PO; +HOLD METFORMIN - RECEIVED CONTRAST 20 ML VIAL IV SCH; +IOHEXOL 350 MG/ML 100 ML (OMNIPAQUE 350) VIAL IV ONE; -MELA3TAB PO; +MELA3TAB65 PO; -METO-370 PO; +METO50TA7 PO; +NS 100 ML (IVPB) BAG IV ONE
--- NOTE | 2019-11-09 13:43 | Diagnostic Imaging Report ---
PROCEDURE: CT chest with contrast, CT abdomen and pelvis with and without contrast. TECHNIQUE: Pre and post intravenous contrast axial imaging of the abdomen and pelvis and post contrast axial imaging of the chest were performed. Auto Exposure Controls were utilized during the CT exam to meet ALARA standards for radiation dose reduction. All CT scans use one or more of the following dose optimizing techniques: automated exposure control, MA and/or KvP adjustment based on patient size and exam type or iterative reconstruction. INDICATION: Lung carcinoma, follow-up. COMPARISON: Correlation is made with CT chest, abdomen, and pelvis from 06/30/[address] chest from 07/27/2019. FINDINGS: CT chest: No axillary, hilar or mediastinal lymphadenopathy is seen. Trace pericardial fluid is identified. No pleural fluid is identified. Marked emphysematous changes in both lungs are again noted. The irregular opacity in the posterior right lower lobe measures approximately 3.6 x 2.2 cm compared with 3.8 x 2.5 cm. The inferior component measures 2.6 x 1.4 cm compared with 3.3 x 1.6 cm. No new pulmonary opacity is detected. Compression fracture deformities appear similar to prior exam. Kyphoplasty changes upper thoracic spine are noted. IMPRESSION: Stable CT chest when compared with examination dating back to 06/30/2019. CT abdomen and pelvis: Small rounded low-density lesions left lobe of liver are stable. No new liver mass is detected. There is generalized hepatic low density consistent with hepatic steatosis. Gallbladder is surgically absent. Pancreas and spleen are unremarkable. No adrenal mass is detected. Renal cortical low densities appear stable. Aorta is calcified but non-aneurysmal. No central, retroperitoneal or mesenteric lymphadenopathy is detected. There is a small fat-containing umbilical hernia. Small and large bowel loops are normal caliber. There is diverticulosis of the sigmoid without diverticulitis. The bladder is unremarkable. No pelvic lymphadenopathy is seen. Bony structures appear nonacute. IMPRESSION: Stable CT abdomen and pelvis since exam from 06/30/2019. No lymphadenopathy or metastatic disease is detected. Dictated by: Dictated on workstation # [id number]
== END ==
LOC: RAD 12:01
PROVIDERS: ATTEND Internal Medicine Hematology & Oncology
DX: C34.31 Malignant neoplasm of lower lobe, right bronchus or lung (principal); D48.1 Neoplasm of uncertain behavior of connective and other soft tissue; Z90.49 Acquired absence of other specified parts of digestive tract; Z98.890 Other specified postprocedural states
CPT/HCPCS: 71260; 74178

== ENCOUNTER → 2020-03-07 | Outpatient (CLI) | payer MEDICARE, MEDICAID ==
[~2020-03-07] MED LIST changes: -ALTEPLASE 2 MG (CATHFLO) CANCER CENTER IV ONE; +CATHETER FLUSH 10 ML SYR IV PRN; -DURVALUMAB IV SCH; +HOLD METFORMIN - RECEIVED CONTRAST 20 ML VIAL IV SCH; +IOHEXOL 350 MG/ML 100 ML (OMNIPAQUE 350) VIAL IV ONE; +MELA3TAB39 PO; -MELA3TAB65 PO; -MONT10TA24 PO; +MONT10TA26 PO; +NS 100 ML (IVPB) BAG IV ONE; -NS IV 500 ML (CANCER CENTER) IV SCH; -NS IV SCH
--- NOTE | 2020-03-07 13:46 | Diagnostic Imaging Report ---
PROCEDURE: CT chest with contrast, CT abdomen with and without contrast. TECHNIQUE: Precontrast acquisitions were acquired through the abdomen. Multiple contiguous axial images were obtained through the chest and abdomen after administration of intravenous contrast. Auto Exposure Controls were utilized during the CT exam to meet ALARA standards for radiation dose reduction. INDICATION: Lung carcinoma, follow-up. COMPARISON: Correlation is made with prior CT from 11/09/2019. FINDINGS: CT chest: A left chest wall port has tip in the SVC. No axillary lymphadenopathy is identified. No mediastinal or hilar lymphadenopathy is detected. No pericardial or pleural fluid is detected. Emphysematous changes in both lungs is again noted. The irregular opacity in the posterior medial right lower lobe is similar in size at 3.6 x 2.2 cm. The second component is slightly more inferior and lateral to this measures 2.6 x 1.5 cm, stable. No new abnormality is detected. Kyphoplasty changes in upper thoracic spine are noted. The chronic compression fractures in mid thoracic spine appear stable. IMPRESSION: Stable right lower lobe parenchymal opacities when compared with exam from 11/09/2019. No thoracic lymphadenopathy is detected. CT abdomen: Tiny low density left lobe of the liver appears stable. Gallbladder is surgically absent. No biliary ductal dilatation is seen. Pancreas and spleen are unremarkable. No adrenal mass is detected. Renal cortical low densities appear stable and suggestive of cysts. Aorta is non-aneurysmal. No central retroperitoneal or mesenteric lymphadenopathy is detected. Bowel loops are normal. There is no ascites. IMPRESSION: Stable CT since exam from 11/09/2019. No abdominal lymphadenopathy or evidence of metastatic disease is detected. Dictated by: Dictated on workstation # [id number]
== END ==
LOC: RAD 10:48
PROVIDERS: ATTEND Internal Medicine Hematology & Oncology
DX: C34.31 Malignant neoplasm of lower lobe, right bronchus or lung (principal)
CPT/HCPCS: 71260; 74170

== ENCOUNTER 2020-06-05 11:08 | Outpatient (RCR) | payer MEDICARE, MEDICAID ==
[~2020-06-05 11:08] MED LIST changes: +ALPR.25T PO; -ALPR0.254 PO
[2020-06-05 11:30] LABS: BASOPHILS % (AUTO) 0 % (0-10); EOSINOPHILS # (AUTO) 0.1 10^3/uL (0.0-0.3); EOSINOPHILS % (AUTO) 1 % (0-10); HEMATOCRIT 37 % (35-52); HEMOGLOBIN 12.1 G/DL (11.5-16.0); LYMPHOCYTES # (AUTO) 0.4 X 10^3 (1.0-4.0); LYMPHOCYTES % (AUTO) 5 % (12-44); MEAN CORPUSCULAR HEMOGLOBIN 32 PG (25-34); MEAN CORPUSCULAR HGB CONC 33 G/DL (32-36); MEAN CORPUSCULAR VOLUME 99 FL (80-99); MONOCYTES # (AUTO) 0.6 X 10^3 (0.0-1.0); MONOCYTES % (AUTO) 7 % (0-12); NEUTROPHILS # (AUTO) 7.4 X 10^3 (1.8-7.8); NEUTROPHILS % (AUTO) 87 % (42-75); PLATELET COUNT 239 10^3/uL (130-400); WHITE BLOOD COUNT 8.5 10^3/uL (4.3-11.0)
[2020-06-05 11:47] LABS: ALANINE AMINOTRANSFERASE 50 U/L (0-55); ALKALINE PHOSPHATASE 94 U/L (40-136); BILIRUBIN,TOTAL 0.3 MG/DL (0.1-1.0); BUN/CREATININE RATIO 19; CALCIUM 9.3 MG/DL (8.5-10.1); CARBON DIOXIDE 27 MMOL/L (21-32); CHLORIDE 109 MMOL/L (98-107); CREATININE SERUM 0.81 MG/DL (0.60-1.30); GFR ESTIMATED > 60; GLUCOSE 173 MG/DL (70-105); SODIUM 144 MMOL/L (135-145); TOTAL PROTEIN 6.2 GM/DL (6.4-8.2)
== END 2020-07-13 08:31 | disposition home or self-care (01) ==
LOC: ONC 11:08
PROVIDERS: ATTEND Internal Medicine Hematology & Oncology
DX: Z09 Encounter for follow-up examination after completed treatment for conditions other than malignant neoplasm (principal); J43.9 Emphysema, unspecified; I48.0 Paroxysmal atrial fibrillation; I10 Essential (primary) hypertension; R91.1 Solitary pulmonary nodule; Z85.118 Personal history of other malignant neoplasm of bronchus and lung; Z92.21 Personal history of antineoplastic chemotherapy; Z92.3 Personal history of irradiation; Z90.49 Acquired absence of other specified parts of digestive tract; Z87.891 Personal history of nicotine dependence; Z98.890 Other specified postprocedural states; Z79.899 Other long term (current) drug therapy
CPT/HCPCS: 80053; 85025; G0463; 36591

== ENCOUNTER → 2020-06-05 | Outpatient (CLI) | payer MEDICARE, MEDICAID ==
[~2020-06-05] MED LIST changes: -CATHETER FLUSH 10 ML SYR IV PRN
--- NOTE | 2020-06-05 13:11 | Diagnostic Imaging Report ---
PROCEDURE: CT chest with contrast, CT abdomen and pelvis with and without contrast. TECHNIQUE: Pre and post intravenous contrast axial imaging of the abdomen and pelvis and post contrast axial imaging of the chest were performed. Auto Exposure Controls were utilized during the CT exam to meet ALARA standards for radiation dose reduction. INDICATION: Lung carcinoma, follow-up. CORRELATION STUDY: CT chest and abdomen of 03/07/2020. FINDINGS: CT CHEST: Left-sided subclavian Llqokh-R-Pirk catheter is present with tip within the high superior vena cava. Heart size is upper limits of normal. Trace pericardial effusion. No pathologically enlarged mediastinal and/or hilar lymph nodes. Right mediastinal calcification. Axillae are unremarkable. Partially visualized thyroid gland is unremarkable. Rather severely advanced bullous emphysematous lung changes. Consolidated opacity in the posteromedial right lower lobe is again demonstrated. While somewhat difficult to quantify, overall appears slightly more prominent from prior. The two previously measured areas are currently 5.2 x 2.0 cm and 2.4 x 1.7 cm. Previously 3.6 x 1.8 cm and 2.6 x 1.5 cm, respectively. Post-kyphoplasty changes at T6. Continued compressive changes with sclerosis at T7, T8, and T9 levels, stable. CT ABDOMEN and PELVIS: Liver with low-density foci posteriorly in the left lobe along with steatosis, stable. The spleen, pancreas, adrenal glands demonstrate no acute abnormality. Cholecystectomy clips. Two probable cysts in the superior pole of the right kidney. Renal parenchyma is otherwise unremarkable. No hydronephrosis. Abdominal aorta with moderate wall calcification, nonaneurysmal. No pathologically enlarged abdominal and/or pelvic lymphadenopathy. Gastrointestinal tract with colonic diverticulosis. No obstruction or inflammation. Urinary bladder is unremarkable. Post hysterectomy. Osseous structures demonstrate no lytic or sclerotic change. IMPRESSION: CT CHEST: 1. Regional area of consolidated mass-like appearance in the posteromedial right lower lobe does persist. Overall appears perhaps slightly more prominent from prior study. Could reflect underlying inflammatory or infectious etiology with possibility of neoplasm also in the differential. If not recently performed and clinically warranted, PET imaging may be of additional diagnostic utility. CT ABDOMEN and PELVIS: 1. No findings to suggest metastatic disease of the abdomen and/or pelvis. No acute abnormality. Dictated by: Dictated on workstation # [id number]
== END ==
LOC: RAD 11:32
PROVIDERS: ATTEND Internal Medicine Hematology & Oncology
DX: C34.90 Malignant neoplasm of unspecified part of unspecified bronchus or lung (principal); D48.1 Neoplasm of uncertain behavior of connective and other soft tissue
CPT/HCPCS: 71260; 74178

== ENCOUNTER → 2020-06-05 | Outpatient (CLI) | payer MEDICARE, MEDICAID ==
[~2020-06-05] MED LIST changes: -HOLD METFORMIN - RECEIVED CONTRAST 20 ML VIAL IV SCH; -IOHEXOL 350 MG/ML 100 ML (OMNIPAQUE 350) VIAL IV ONE; -NS 100 ML (IVPB) BAG IV ONE
[2020-06-05 11:34] LABS: BASOPHILS % (AUTO) 0 % (0-10); EOSINOPHILS # (AUTO) 0.1 10^3/uL (0.0-0.3); EOSINOPHILS % (AUTO) 1 % (0-10); HEMATOCRIT 37 % (35-52); HEMOGLOBIN 12.1 G/DL (11.5-16.0); LYMPHOCYTES # (AUTO) 0.4 X 10^3 (1.0-4.0); LYMPHOCYTES % (AUTO) 5 % (12-44); MEAN CORPUSCULAR HEMOGLOBIN 32 PG (25-34); MEAN CORPUSCULAR HGB CONC 33 G/DL (32-36); MEAN CORPUSCULAR VOLUME 99 FL (80-99); MONOCYTES # (AUTO) 0.6 X 10^3 (0.0-1.0); MONOCYTES % (AUTO) 7 % (0-12); NEUTROPHILS # (AUTO) 7.4 X 10^3 (1.8-7.8); NEUTROPHILS % (AUTO) 87 % (42-75); PLATELET COUNT 239 10^3/uL (130-400); RED CELL DISTRIBUTION WIDTH 13.9 % (10.0-14.5); WHITE BLOOD COUNT 8.5 10^3/uL (4.3-11.0)
[2020-06-05 11:45] LABS: ALANINE AMINOTRANSFERASE 50 U/L (0-55); ALKALINE PHOSPHATASE 92 U/L (40-136); BILIRUBIN,TOTAL 0.3 MG/DL (0.1-1.0); BUN/CREATININE RATIO 19; CALCIUM 9.3 MG/DL (8.5-10.1); CARBON DIOXIDE 29 MMOL/L (21-32); CHLORIDE 108 MMOL/L (98-107); CHOLESTEROL 209 MG/DL (< 200); GFR ESTIMATED > 60; GLUCOSE 174 MG/DL (70-105); HDL CHOLESTEROL 90 MG/DL (40-60); POTASSIUM 3.9 MMOL/L (3.6-5.0); SODIUM 143 MMOL/L (135-145); TOTAL PROTEIN 6.2 GM/DL (6.4-8.2); TRIGLYCERIDES 149 MG/DL (<150); VLDL CHOLESTEROL 30 MG/DL (5-40)
[2020-06-05 12:08] LABS: FREE T4 (FREE THYROXINE) 0.79 NG/DL (0.70-1.48)
== END ==
LOC: LAB 11:01
PROVIDERS: ATTEND Nurse Practitioner Family
DX: J43.9 Emphysema, unspecified (principal); E66.9 Obesity, unspecified; E88.81 Metabolic syndrome and other insulin resistance; Z85.118 Personal history of other malignant neoplasm of bronchus and lung
CPT/HCPCS: 36415; 80053; 80061; 83036; 84439; 84443; 85025

== ENCOUNTER 2020-09-25 10:15 | Outpatient (RCR) | payer MEDICARE, MEDICAID ==
[~2020-09-25 10:15] MED LIST changes: +MONT10TA32 PO; -MONT10TA97 PO
[2020-09-25 11:04] LABS: BASOPHILS % (AUTO) 0 % (0-10); EOSINOPHILS % (AUTO) 0 % (0-10); HEMATOCRIT 37 % (35-52); HEMOGLOBIN 11.6 g/dL (11.5-16.0); LYMPHOCYTES # (AUTO) 0.4 10^3/uL (1.0-4.0); LYMPHOCYTES % (AUTO) 5 % (12-44); MEAN CORPUSCULAR HEMOGLOBIN 33 pg (25-34); MEAN CORPUSCULAR HGB CONC 32 g/dL (32-36); MEAN CORPUSCULAR VOLUME 103 fL (80-99); MEAN PLATELET VOLUME 10.4 fL (9.0-12.2); MONOCYTES # (AUTO) 0.6 10^3/uL (0.0-1.0); MONOCYTES % (AUTO) 7 % (0-12); NEUTROPHILS # (AUTO) 7.4 10^3/uL (1.8-7.8); NEUTROPHILS % (AUTO) 85 % (42-75); PLATELET COUNT 222 10^3/uL (130-400); WHITE BLOOD COUNT 8.7 10^3/uL (4.3-11.0)
[2020-09-25 11:19] LABS: ALANINE AMINOTRANSFERASE 69 U/L (0-55); ALBUMIN 3.9 GM/DL (3.2-4.5); ALKALINE PHOSPHATASE 96 U/L (40-136); BAND NEUTROPHILS 0 %; BASOPHILS % (MANUAL) 0 %; BILIRUBIN,TOTAL 0.4 MG/DL (0.1-1.0); BUN/CREATININE RATIO 22; CALCIUM 9.5 MG/DL (8.5-10.1); CARBON DIOXIDE 29 MMOL/L (21-32); CHLORIDE 103 MMOL/L (98-107); CREATININE SERUM 0.86 MG/DL (0.60-1.30); EOSINOPHILS % (MANUAL) 2 %; GFR ESTIMATED > 60; GLUCOSE 193 MG/DL (70-105); LYMPHOCYTES % (MANUAL) 3 %; MONOCYTES % (MANUAL) 6 %; NEUTROPHILS % (MANUAL) 89 %; POLYCHROMASIA SLIGHT; POTASSIUM 4.2 MMOL/L (3.6-5.0); SODIUM 140 MMOL/L (135-145); TOTAL PROTEIN 6.4 GM/DL (6.4-8.2)
== END 2020-12-05 15:56 | disposition home or self-care (01) ==
LOC: ONC 10:15
PROVIDERS: ATTEND Internal Medicine Hematology & Oncology
DX: C34.90 Malignant neoplasm of unspecified part of unspecified bronchus or lung (principal)
CPT/HCPCS: 36591; 80053; 85007; 85027

== ENCOUNTER → 2020-09-25 | Outpatient (CLI) | payer MEDICARE, MEDICAID ==
[~2020-09-25] MED LIST changes: +CATHETER FLUSH 10 ML SYR IV PRN; +HOLD METFORMIN - RECEIVED CONTRAST 20 ML VIAL IV SCH; +IOHEXOL 350 MG/ML 100 ML (OMNIPAQUE 350) VIAL IV ONE; -MONT10TA26 PO; +MONT10TA97 PO; +NS 100 ML (IVPB) BAG IV ONE
--- NOTE | 2020-09-25 13:04 | Diagnostic Imaging Report ---
PROCEDURE: CT chest with contrast, CT abdomen and pelvis with and without contrast. TECHNIQUE: Pre and post intravenous contrast axial imaging of the abdomen and pelvis and post contrast axial imaging of the chest were performed. Auto Exposure Controls were utilized during the CT exam to meet ALARA standards for radiation dose reduction. DATE: September 25, 2020. COMPARISON: None. INDICATION: 70-year-old female, history of lung cancer. FINDINGS: There is focal airspace consolidation in the right lower lobe which is fairly masslike in appearance. The estimated axial extent as measured on axial image 88 is 5.1 x 3.7 cm. This previously measured approximately 5.1 x 3.8 cm in extent on June 05, 2020. This is essentially unchanged. Size measurements are somewhat difficult given the somewhat ill-defined margins of the consolidation. Visually, the extent of consolidation also appears unchanged. There are prominent upper lobe predominant findings of emphysema. There is no identified new or enlarging pulmonary nodule. There is no additional site of focal airspace consolidation. There is no pneumothorax. There is no pleural effusion. The central airways are patent. The heart is not enlarged. There is no pericardial effusion. There is no identified abnormally enlarged mediastinal, hilar, or axillary lymph node meeting CT size criteria for adenopathy. There is no identified pulmonary embolus. There is diffuse fatty infiltration of the liver. The outer liver contours are not nodular. There is no identified liver lesion. The main, right, and left portal veins are patent. The patient is status post cholecystectomy. There is no intrahepatic or extrahepatic bile duct dilation. The main pancreatic duct is not abnormally dilated. Unremarkable appearance of the pancreatic parenchyma. The spleen is normal in size. The adrenal glands are unremarkable. There are low-attenuation right renal lesions on axial image 120 which measures approximately 11 mm in size. Internal attenuation is approximately 13 Hounsfield units of both lesions. These are both unchanged since the comparison exam and likely relate to benign cysts. The urinary collecting systems are not distended. There is no identified renal or ureteral stone. The urinary bladder is unremarkable. The uterus is not seen and may be surgically absent. The intestinal tract is not distended. There is diverticulosis without evidence of acute diverticulitis. There is a small fat-containing umbilical hernia. There is a duodenal diverticulum at the level of the distal second portion of duodenum. There is no free intraperitoneal air. There is no drainable fluid collection. There is no free pelvic fluid. There are atherosclerotic calcifications. There is no identified abnormally enlarged lymph node in the abdomen or pelvis which meets CT size criteria for adenopathy. There are prior kyphoplasty changes of T6. There are compression deformities of T7, T8, and T9. There is approximately 30% height loss of T7 and T9. There is no retropulsed fracture fragment. These are unchanged since June 05, 2020. There is no new acute bony abnormality. IMPRESSION: CT CHEST, ABDOMEN, AND PELVIS. 1. Stable fairly masslike airspace consolidation in the right lower lobe since June 05, 2020. 2. No new or enlarging pulmonary nodule. 3. No identified metastatic lesion in the abdomen or pelvis. 4. Unchanged compression deformities of T7, T8, and T9. Dictated by: Dictated on workstation # [id number]
== END ==
LOC: RAD 10:59
PROVIDERS: ATTEND Internal Medicine Hematology & Oncology
DX: C34.31 Malignant neoplasm of lower lobe, right bronchus or lung (principal)
CPT/HCPCS: 71260; 74178

== ENCOUNTER → 2020-09-25 | Outpatient (CLI) | payer MEDICARE, MEDICAID ==
[~2020-09-25] MED LIST changes: -CATHETER FLUSH 10 ML SYR IV PRN; -HOLD METFORMIN - RECEIVED CONTRAST 20 ML VIAL IV SCH; -IOHEXOL 350 MG/ML 100 ML (OMNIPAQUE 350) VIAL IV ONE; -NS 100 ML (IVPB) BAG IV ONE
== END ==
LOC: LAB 10:29
PROVIDERS: ATTEND Internal Medicine Endocrinology, Diabetes & Metabolism
DX: E05.90 Thyrotoxicosis, unspecified without thyrotoxic crisis or storm (principal)
CPT/HCPCS: 36415; 84443

== ENCOUNTER 2020-12-18 10:18 | Outpatient (RCR) | payer MEDICARE, MEDICAID ==
[~2020-12-18 10:18] MED LIST changes: -POLY17PO31 PO; +POLY17PO54 PO
[2020-12-18 10:55] LABS: BASOPHILS % (AUTO) 0 % (0-10); EOSINOPHILS % (AUTO) 0 % (0-10); HEMATOCRIT 36 % (35-52); HEMOGLOBIN 11.7 g/dL (11.5-16.0); LYMPHOCYTES # (AUTO) 0.4 10^3/uL (1.0-4.0); LYMPHOCYTES % (AUTO) 4 % (12-44); MEAN CORPUSCULAR HEMOGLOBIN 33 pg (25-34); MEAN CORPUSCULAR HGB CONC 32 g/dL (32-36); MEAN CORPUSCULAR VOLUME 103 fL (80-99); MEAN PLATELET VOLUME 10.4 fL (9.0-12.2); MONOCYTES # (AUTO) 0.9 10^3/uL (0.0-1.0); MONOCYTES % (AUTO) 9 % (0-12); NEUTROPHILS % (AUTO) 80 % (42-75); PLATELET COUNT 237 10^3/uL (130-400)
[2020-12-18 11:12] LABS: BILIRUBIN,TOTAL 0.2 MG/DL (0.1-1.0); CALCIUM 9.1 MG/DL (8.5-10.1); CREATININE SERUM 1.07 MG/DL (0.60-1.30); POTASSIUM 4.4 MMOL/L (3.6-5.0); TOTAL PROTEIN 6.2 GM/DL (6.4-8.2)
== END 2021-03-18 | disposition home or self-care (01) ==
LOC: ONC 10:18
PROVIDERS: ATTEND Internal Medicine Hematology & Oncology
DX: C34.31 Malignant neoplasm of lower lobe, right bronchus or lung (principal); C77.1 Secondary and unspecified malignant neoplasm of intrathoracic lymph nodes; J43.9 Emphysema, unspecified; I10 Essential (primary) hypertension; M48.54XA Collapsed vertebra, not elsewhere classified, thoracic region, initial encounter for fracture
CPT/HCPCS: 80053; 85025; G0463; 36591

== ENCOUNTER → 2020-12-18 | Outpatient (CLI) | payer MEDICARE, MEDICAID ==
[~2020-12-18] MED LIST changes: +BARIUM SUSPENSION 2.1% (VANILLA SILQ) 450 ML PO ONE; +CATHETER FLUSH 10 ML SYR IV PRN; +HOLD METFORMIN - RECEIVED CONTRAST 20 ML VIAL IV SCH; +IOHEXOL 350 MG/ML 100 ML (OMNIPAQUE 350) VIAL IV ONE; +NS 100 ML (IVPB) BAG IV ONE
--- NOTE | 2020-12-18 12:15 | Diagnostic Imaging Report ---
EXAMINATION: CT Chest, Abdomen and Pelvis with intravenous contrast. TECHNIQUE: Multiple contiguous axial images were obtained through the chest, abdomen and pelvis after the uneventful administration of intravenous contrast. All CT scans use one or more of the following dose optimizing techniques: automated exposure control, MA and/or KvP adjustment based on a patient size and exam type, or iterative reconstruction. HISTORY: Lung cancer. COMPARISON: 09/25/2020 FINDINGS: Lungs are severely emphysematous. There is an unchanged area of scarring or atelectasis in the right lower lobe with the nodule identified in 2017 either resolved or obscured by the scarring or atelectasis. This may be related to prior radiation. No new pulmonary nodules are seen. No pleural effusion. No pneumothorax. There is no axillary or supraclavicular lymphadenopathy. There is no mediastinal lymphadenopathy. Left-sided central venous catheter is present. Heart size is normal. There are mild coronary artery calcifications. No pericardial effusion. Aorta is normal in caliber. Liver is mildly steatotic. No focal liver lesions are seen. There is no biliary ductal dilation. Gallbladder is absent. Pancreas is normal. Spleen is normal. Adrenal glands are normal. Few small renal cysts are seen. No suspicious renal lesions. There is no hydronephrosis. Urinary bladder is normal. Visualized bowel is normal in caliber without obstruction or inflammation. There is diverticulosis without diverticulitis. No free fluid or air. No abdominal or pelvic lymphadenopathy. Aorta is normal in caliber without aneurysm. There are no suspicious osseous lesions. There are stable mid thoracic compression fractures, one of which has been treated with vertebroplasty. IMPRESSION: 1. Stable scarring or atelectasis in the right lower lobe potentially representing radiation changes for treatment of lung cancer. 2. No metastatic disease identified. Dictated by: Dictated on workstation # [id number]
--- NOTE | 2020-12-18 15:01 | Diagnostic Imaging Report ---
INDICATION: Lung cancer EXAM: Whole body bone scan 23.7 mCi of technetium 99m MDP was given intravenously. Whole body bone scan was obtained after a 3 hour delay. COMPARISON is made to a CT from 12/18/2020. FINDINGS: There is increased activity in the thoracic spine corresponding to compression fractures. The patient has CT demonstrated compression fractures of T6, T7, T8 and T9. The remainder of the activity in the skeletal system appears normal. IMPRESSION: Increased activity in the midthoracic spine consistent with compression fractures, one of which has undergone previous kyphoplasty. Pathologic compression fractures cannot be excluded however. Uptake otherwise unremarkable. Dictated by: Dictated on workstation # [id number]
== END ==
LOC: CARD 10:50
PROVIDERS: ATTEND Internal Medicine Hematology & Oncology
DX: C34.90 Malignant neoplasm of unspecified part of unspecified bronchus or lung (principal); M48.54XA Collapsed vertebra, not elsewhere classified, thoracic region, initial encounter for fracture
CPT/HCPCS: 71260; 74177; 78306; A9503

== ENCOUNTER → 2020-12-18 | Outpatient (CLI) | payer MEDICARE, MEDICAID ==
[~2020-12-18] MED LIST changes: -BARIUM SUSPENSION 2.1% (VANILLA SILQ) 450 ML PO ONE; -CATHETER FLUSH 10 ML SYR IV PRN; -HOLD METFORMIN - RECEIVED CONTRAST 20 ML VIAL IV SCH; -IOHEXOL 350 MG/ML 100 ML (OMNIPAQUE 350) VIAL IV ONE; -NS 100 ML (IVPB) BAG IV ONE
[2020-12-18 17:08] LABS: POTASSIUM 4.5 MMOL/L (3.6-5.0)
[2020-12-18 17:09] LABS: CALCIUM 8.9 MG/DL (8.5-10.1)
[2020-12-18 17:14] LABS: CREATININE SERUM 1.1 MG/DL (0.60-1.30)
== END ==
LOC: LAB 10:33
PROVIDERS: ATTEND Internal Medicine Endocrinology, Diabetes & Metabolism
DX: M81.0 Age-related osteoporosis without current pathological fracture (principal); E05.90 Thyrotoxicosis, unspecified without thyrotoxic crisis or storm; R94.6 Abnormal results of thyroid function studies
CPT/HCPCS: 36415; 80048; 82306; 84443

== ENCOUNTER 2021-03-19 12:37 | Outpatient (RCR) | payer MEDICARE, MEDICAID ==
[2021-03-19 11:30] LABS: BASOPHILS # (AUTO) 0.1 10^3/uL (0.0-0.1); BASOPHILS % (AUTO) 1 % (0-10); EOSINOPHILS % (AUTO) 0 % (0-10); HEMATOCRIT 38 % (35-52); HEMOGLOBIN 12.4 g/dL (11.5-16.0); LYMPHOCYTES # (AUTO) 0.5 10^3/uL (1.0-4.0); LYMPHOCYTES % (AUTO) 5 % (12-44); MEAN CORPUSCULAR HEMOGLOBIN 34 pg (25-34); MEAN CORPUSCULAR HGB CONC 33 g/dL (32-36); MEAN CORPUSCULAR VOLUME 102 fL (80-99); MEAN PLATELET VOLUME 10.2 fL (9.0-12.2); MONOCYTES % (AUTO) 9 % (0-12); NEUTROPHILS # (AUTO) 8.8 10^3/uL (1.8-7.8); NEUTROPHILS % (AUTO) 78 % (42-75); PLATELET COUNT 228 10^3/uL (130-400); WHITE BLOOD COUNT 11.4 10^3/uL (4.3-11.0)
[2021-03-19 11:52] LABS: ALANINE AMINOTRANSFERASE 49 U/L (0-55); ALBUMIN 4.2 GM/DL (3.2-4.5); ALKALINE PHOSPHATASE 80 U/L (40-136); BILIRUBIN,TOTAL 0.4 MG/DL (0.1-1.0); BUN/CREATININE RATIO 16; CALCIUM 9.7 MG/DL (8.5-10.1); CARBON DIOXIDE 28 MMOL/L (21-32); CHLORIDE 104 MMOL/L (98-107); CREATININE SERUM 0.88 MG/DL (0.60-1.30); GFR ESTIMATED > 60; GLUCOSE 173 MG/DL (70-105); POTASSIUM 4.2 MMOL/L (3.6-5.0); SODIUM 139 MMOL/L (135-145); TOTAL PROTEIN 6.7 GM/DL (6.4-8.2)
[~2021-03-19 12:37] MED LIST changes: -CATHETER FLUSH 10 ML SYR IV PRN; -HOLD METFORMIN - RECEIVED CONTRAST 20 ML VIAL IV SCH; -IOHEXOL 350 MG/ML 100 ML (OMNIPAQUE 350) VIAL IV ONE; -NS 100 ML (IVPB) BAG IV ONE
== END 2021-06-14 14:10 | disposition home or self-care (01) ==
LOC: ONC 12:37
PROVIDERS: ATTEND Internal Medicine Hematology & Oncology
DX: Z45.2 Encounter for adjustment and management of vascular access device (principal); C34.31 Malignant neoplasm of lower lobe, right bronchus or lung; C77.1 Secondary and unspecified malignant neoplasm of intrathoracic lymph nodes; J43.9 Emphysema, unspecified; I10 Essential (primary) hypertension; I48.0 Paroxysmal atrial fibrillation
CPT/HCPCS: 80053; 83615; 85025; G0463; 36591

== ENCOUNTER → 2021-03-19 | Outpatient (CLI) | payer MEDICARE, MEDICAID ==
[~2021-03-19] MED LIST changes: +CATHETER FLUSH 10 ML SYR IV PRN; +HOLD METFORMIN - RECEIVED CONTRAST 20 ML VIAL IV SCH; +IOHEXOL 350 MG/ML 100 ML (OMNIPAQUE 350) VIAL IV ONE; +NS 100 ML (IVPB) BAG IV ONE
--- NOTE | 2021-03-19 14:11 | Diagnostic Imaging Report ---
EXAMINATION: CT chest with intravenous contrast. TECHNIQUE: Multiple contiguous axial images were obtained through the chest after the uneventful administration of intravenous contrast. All CT scans use one or more of the following dose optimizing techniques: automated exposure control, MA and/or KvP adjustment based on patient size and exam type or iterative reconstruction. HISTORY: Lung cancer. COMPARISON: 12/18/2020 FINDINGS: There is no edema or pneumonia. No pleural effusion. No pneumothorax. There is a masslike area of soft tissue in the right lower lobe likely representing atelectasis or scarring that is unchanged measuring 3.7 x 3.6 cm, previously 3.6 x 2.6 cm. This may reflect prior radiation changes. Lungs are severely emphysematous. There is no axillary or supraclavicular lymphadenopathy. There is no mediastinal lymphadenopathy. Left-sided central venous catheter is present. Heart size is normal. There are no coronary artery calcifications. No pericardial effusion. Aorta is normal in caliber. Limited views of the upper abdomen show hepatic steatosis. Gallbladder is absent. T6-T9 sclerosis and compression fractures are unchanged with vertebroplasty of T6. IMPRESSION: 1. Stable right lower lobe scarring or atelectasis possibly representing prior radiation therapy. 2. Stable sclerosis and compression fractures in the midthoracic spine. Dictated by: Dictated on workstation # [id number]
== END ==
LOC: RAD 11:32
PROVIDERS: ATTEND Nurse Practitioner Adult Health
DX: C34.31 Malignant neoplasm of lower lobe, right bronchus or lung (principal); S22.000A Wedge compression fracture of unspecified thoracic vertebra, initial encounter for closed fracture
CPT/HCPCS: 71260

== ENCOUNTER → 2021-06-20 | Outpatient (CLI) | payer MEDICARE, MEDICAID ==
[~2021-06-20] MED LIST changes: +BARIUM SUSPENSION 2.1% (VANILLA SILQ) 450 ML PO ONE; +CATHETER FLUSH 10 ML SYR IV PRN; +HOLD METFORMIN - RECEIVED CONTRAST 20 ML VIAL IV SCH; +IOHEXOL 350 MG/ML 100 ML (OMNIPAQUE 350) VIAL IV ONE; +NS 100 ML (IVPB) BAG IV ONE
--- NOTE | 2021-06-20 12:52 | Diagnostic Imaging Report ---
PROCEDURE: CT chest with contrast, CT abdomen and pelvis with and without contrast. TECHNIQUE: Pre and post intravenous contrast axial imaging of the abdomen and pelvis and post contrast axial imaging of the chest were performed. Auto Exposure Controls were utilized during the CT exam to meet ALARA standards for radiation dose reduction. INDICATION: Malignant neoplasm of the lung. Comparison is made with prior CT chest from 03/19/[address] abdomen and pelvis from 12/18/2020. CT CHEST: No axillary lymphadenopathy is detected. No mediastinal or hilar lymphadenopathy is detected. There is no pericardial fluid. There is a very small right pleural effusion. This has increased since the prior exam. No left-sided pleural fluid is identified. Pulmonary parenchymal evaluation does show emphysematous changes throughout both lungs. The area of masslike consolidation in the posterior right lower lobe appears very similar when measured by the same technique that shows no real change. No new pulmonary opacities are identified. Kyphoplasty changes in the T7 vertebral body are again noted. Compression deformities at T8 and T10 are again noted. IMPRESSION: Overall stable appearance to the area of masslike consolidation and post-therapeutic changes in the right lower lobe when compared with exam from 03/19/2021. Patient has developed a small right pleural effusion. CT ABDOMEN AND PELVIS: Liver again demonstrates generalized low density consistent with hepatic steatosis. No liver mass is detected. Gallbladder is surgically absent. There is no biliary ductal dilatation. The pancreas and spleen are unremarkable. There is no adrenal mass. Renal cortical low densities in the upper pole of the right kidney appear stable. Aorta is nonaneurysmal. No central retroperitoneal or mesenteric lymphadenopathy is seen. Bowel loops are normal caliber. There is an umbilical hernia which does contain a knuckle of small bowel but no bowel obstruction is seen. There is no free fluid or fluid collection. There is diverticulosis of the sigmoid without evidence of acute diverticulitis. Bladder is unremarkable. Uterus appears to be surgically absent. No definite pelvic lymphadenopathy is seen. Bony structures are nonacute. IMPRESSION: 1. Stable CT abdomen and pelvis since 12/18/2020 again demonstrating hepatic steatosis and uncomplicated diverticulosis. There is a small umbilical hernia containing a small bowel loop but no evidence of strangulation or bowel obstruction is seen. Dictated by: Dictated on workstation # [id number]
--- NOTE | 2021-06-20 16:08 | Diagnostic Imaging Report ---
INDICATION: Lung cancer. Pain. 27.0 mCi of tech 99 MDP were given intravenously. Anterior and posterior whole-body images were obtained. Comparison is made with a prior study from 12/18/2020 Again seen is slight increased activity in the midthoracic spine level which is stable compared to the prior study. There is normal uptake throughout the remainder of the osseous structures. There is bilateral renal function. IMPRESSION: Stable whole body bone scan. Dictated by: Dictated on workstation # [id number]
== END ==
LOC: CARD 11:03
PROVIDERS: ATTEND Nurse Practitioner Adult Health
DX: C34.31 Malignant neoplasm of lower lobe, right bronchus or lung (principal); C77.1 Secondary and unspecified malignant neoplasm of intrathoracic lymph nodes; K76.0 Fatty (change of) liver, not elsewhere classified; K57.30 Diverticulosis of large intestine without perforation or abscess without bleeding; K42.9 Umbilical hernia without obstruction or gangrene
CPT/HCPCS: 71260; 74178; 78306; A9503

== ENCOUNTER → 2021-06-20 | Outpatient (CLI) | payer MEDICARE, MEDICAID ==
[~2021-06-20] MED LIST changes: -BARIUM SUSPENSION 2.1% (VANILLA SILQ) 450 ML PO ONE; -CATHETER FLUSH 10 ML SYR IV PRN; -HOLD METFORMIN - RECEIVED CONTRAST 20 ML VIAL IV SCH; -IOHEXOL 350 MG/ML 100 ML (OMNIPAQUE 350) VIAL IV ONE; -NS 100 ML (IVPB) BAG IV ONE
[2021-06-20 11:21] LABS: ALBUMIN 4.1 GM/DL (3.2-4.5); BILIRUBIN,TOTAL 0.4 MG/DL (0.1-1.0); CALCIUM 9.4 MG/DL (8.5-10.1); CREATININE SERUM 0.84 MG/DL (0.60-1.30); POTASSIUM 4.2 MMOL/L (3.6-5.0); TOTAL PROTEIN 6.4 GM/DL (6.4-8.2)
== END ==
LOC: LAB 10:20
PROVIDERS: ATTEND Physician Assistant
DX: E11.65 Type 2 diabetes mellitus with hyperglycemia (principal); E78.2 Mixed hyperlipidemia
CPT/HCPCS: 36415; 80053; 80061; 83036

== ENCOUNTER → 2021-06-26 | Outpatient (CLI) | payer MEDICARE, MEDICAID ==
[~2021-06-26] MED LIST changes: +REGADENOSON 0.4 MG/5 ML SYR (LEXISCAN) IV ONE
[2021-06-26] MEDS: CATHETER FLUSH 10 ML SYR IV PRN ×2 (12:15→13:22)
[2021-06-26 13:16] VITALS: BP 147/86
--- NOTE | 2021-06-27 08:04 | Cardiology Stress Test Report ---
Stress Test Report Date of Procedure/Referring: Date of Procedure: Jun 26, 2021 [facility]yanne Griffin [facility]: HTN Baseline Heart Rate: 105 Baseline Blood Pressure: Blood Pressure Systolic: 147 Blood Pressure Diastolic: 86 Baseline Vitals Vital Signs Date Time Temp Pulse Resp B/P (MAP) Pulse Ox O2 Delivery O2 Flow Rate FiO2 06/26/21 13:16 107 16 147/86 (106) 98 Room Air Baseline EKG: Baseline EKG: NSR Summary After explaining the procedure to the patient, she signed a consent and then brought to the stress nuclear laboratory. Patient received 0.4 mg Lexiscan for stress test, ECG, heart rate and blood pressure were monitored continuously. Resting and stress dose of radio tracer were injected, imaging was acquired and reviewed in short axis, horizontal long axis and vertical long axis views. TID: 0.84 SSS: 11 SDS: 8 EF: 91 1. Patient tolerated Lexiscan well 2. Baseline sinus tachycardia persisted during test 3. Breast attenuation and small left ventricle affecting the quality of the study, there is mild decreased uptake in the anterior wall and anterolateral wall, stress score is 11 with SDS 8 probably due to the small left ventricle 4. Small left ventricle with good contractility, ejection fraction 91% 5. Overall nondiagnostic study CHAGO EISENBEGR MD Jun 27, 2021 08:04
== END ==
LOC: CARD 12:00
PROVIDERS: ATTEND Physician Assistant
DX: I11.9 Hypertensive heart disease without heart failure (principal); I87.2 Venous insufficiency (chronic) (peripheral); E78.2 Mixed hyperlipidemia
CPT/HCPCS: 78452; 93017; 93306; A9502

== ENCOUNTER 2021-06-27 13:32 | Outpatient (RCR) | payer MEDICARE, MEDICAID ==
[2021-06-20 10:44] LABS: BASOPHILS % (AUTO) 0 % (0-10); EOSINOPHILS % (AUTO) 0 % (0-10); HEMATOCRIT 36 % (35-52); HEMOGLOBIN 11.4 g/dL (11.5-16.0); LYMPHOCYTES # (AUTO) 0.4 10^3/uL (1.0-4.0); LYMPHOCYTES % (AUTO) 4 % (12-44); MEAN CORPUSCULAR HEMOGLOBIN 33 pg (25-34); MEAN CORPUSCULAR HGB CONC 32 g/dL (32-36); MEAN CORPUSCULAR VOLUME 105 fL (80-99); MEAN PLATELET VOLUME 10.4 fL (9.0-12.2); MONOCYTES % (AUTO) 10 % (0-12); NEUTROPHILS # (AUTO) 7.7 10^3/uL (1.8-7.8); NEUTROPHILS % (AUTO) 74 % (42-75); PLATELET COUNT 236 10^3/uL (130-400); WHITE BLOOD COUNT 10.3 10^3/uL (4.3-11.0)
[2021-06-20 11:03] LABS: ALBUMIN 4.1 GM/DL (3.2-4.5); BILIRUBIN,TOTAL 0.4 MG/DL (0.1-1.0); CALCIUM 9.4 MG/DL (8.5-10.1); CREATININE SERUM 0.84 MG/DL (0.60-1.30); POTASSIUM 4.2 MMOL/L (3.6-5.0); TOTAL PROTEIN 6.4 GM/DL (6.4-8.2)
[~2021-06-27 13:32] MED LIST changes: -METH5TAB5 PO; +METH5TAB95 PO; +MONT-40 PO; -MONT10TA32 PO; +POTA-169 PO; -POTA20TA8 PO; -POTA99TA21 PO; +POTA99TA26 PO; -REGADENOSON 0.4 MG/5 ML SYR (LEXISCAN) IV ONE
[2021-07-10] MEDS ORDERED: METO-333 PO (08:05)
[2021-07-10] MEDS ORDERED: TRM50T PO (08:05)
[2021-07-10] MEDS ORDERED: PRD10T PO (08:05)
[2021-07-10] MEDS ORDERED: FLUT1BLS15 IH (08:05)
[2021-07-10] MEDS ORDERED: APIX5TAB PO (08:05)
[2021-07-10] MEDS ORDERED: METH5TAB95 PO (08:05)
[2021-07-10] MEDS ORDERED: FLUT9.9S NS (08:05)
[2021-07-10] MEDS ORDERED: MONT-40 PO (08:05)
[2021-07-10] MEDS ORDERED: FURO20TA4 PO (08:05)
[2021-07-10] MEDS ORDERED: CLIN-144 PO (08:05)
[2021-07-10] MEDS ORDERED: HYDR-3584 PO (08:05)
[2021-07-10] MEDS ORDERED: RT-ALBUINH INH (08:05)
[2021-07-10] MEDS ORDERED: SITA100T12 PO (08:05)
[2021-07-10] MEDS ORDERED: DILT120C88 PO (08:05)
[2021-07-10] MEDS ORDERED: CALC-250 PO (08:10)
[2021-07-10] MEDS ORDERED: CALC600T91 PO (08:10)
[2021-07-10] MEDS ORDERED: [UNRECOGNIZED DRUG - CODE] PO (08:10)
[2021-07-10] MEDS ORDERED: NIAC500T24 PO (08:10)
[2021-07-10] MEDS ORDERED: LUTE40CA PO (08:10)
[2021-07-10] MEDS ORDERED: MULT-1136 PO (08:10)
[2021-07-10] MEDS ORDERED: CHLO-159 PO (08:11)
[2021-07-10] MEDS ORDERED: PHEN10TA32 PO (08:11)
[2021-07-10] MEDS ORDERED: ECHI400C16 PO (08:11)
[2021-07-10] MEDS ORDERED: POTA99TA26 PO (08:11)
[2021-07-10] MEDS ORDERED: BIOT25007 PO (08:11)
[2021-07-10] MEDS ORDERED: DOCU100T7 PO (08:11)
[2021-07-10] MEDS ORDERED: AZIT250T PO (10:21)
[2021-08-14] MEDS ORDERED: TIOT18CA2 INH (13:20)
[2021-08-14] MEDS ORDERED: DILT-27 PO (13:20)
[2021-08-14] MEDS ORDERED: HYDR-700 PO (13:20)
[2021-08-14] MEDS ORDERED: MOME13HF IH (13:20)
== END 2021-08-22 | disposition home or self-care (01) ==
LOC: ONC 13:32
PROVIDERS: ATTEND Internal Medicine Hematology & Oncology
DX: Z45.2 Encounter for adjustment and management of vascular access device (principal); C50.411 Malignant neoplasm of upper-outer quadrant of right female breast; E66.9 Obesity, unspecified; Z79.810 Long term (current) use of selective estrogen receptor modulators (SERMs); Z92.21 Personal history of antineoplastic chemotherapy; Z92.3 Personal history of irradiation; Z90.11 Acquired absence of right breast and nipple; Z87.891 Personal history of nicotine dependence
CPT/HCPCS: 36591; 80053; 83615; 85025; 99213

== ENCOUNTER 2021-07-10 06:47 | Day surgery (SDC) | payer MEDICARE, MEDICAID ==
[~2021-07-10] VITALS: Ht 165 cm; Wt 95.0 kg
[2021-07-10] VITALS (9 sets, daily range): BP systolic 95–141; BP diastolic 56–107
[~2021-07-10 06:47] MED LIST changes: +METH5TAB5 PO; -METH5TAB95 PO; -MONT-40 PO; +MONT10TA32 PO; -POTA-169 PO; +POTA20TA8 PO; +POTA99TA21 PO; -POTA99TA26 PO
--- OUTSIDE RECORDS SUMMARY | 2021-07-10 06:49 | XMS REPORT | Clinical Summary ---
Author Author [facility] Organization [facility] Address Unknown Phone Unavailable Care Team Providers Care Hvac Designer Name Role Phone No Pcp, Na PCP Unavailable Source Comments Some departments are not documenting in the electronic medical record. If you d o not see the information that you expected, contact Release of Information in [facility] [employer] Information Management department at [phone] for further assistan ce in locating additional records.[facility] Allergies Comments Active Allergy Reactions Severity Noted Date Penicillins HIVES Medium 11/25/2017 Medications End Date Status Medication Sig Dispensed Refills Start Date Active SPIRIVA WITH HANDIHALER 0 18 mcg capsule for 8 inhaler Active fluticasone (FLONASE) 50 0 mcg/actuation nasal spray 8 Active DULERA 200-5 0 mcg/actuation inhalation 8 Active montelukast (SINGULAIR) 0 10 mg tablet 8 Active prednisone (DELTASONE) 10 0 mg tablet 8 Active acetaminophen (TYLENOL) Take 500 mg 0 500 mg tablet by mouth every 6 hours as needed for Pain. Max of 4,000 mg of acetaminophen in 24 hours. Active diphenhydrAMINE (BENADRYL Take 25 mg by 0 ALLERGY) 25 mg tablet mouth every 6 hours as needed. Active albuterol (VENTOLIN HFA) Inhale 2 0 90 mcg/actuation inhaler puffs by mouth into the lungs every 6 hours as needed for Wheezing or Shortness of Breath. Shake well before use. 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 We recommend concurrent chemoradiation with carboplatin AUC 2 and paclitaxel 45mg/m2 weekly followed by d urvalumab 10mg/kg every 2 weeks for one year. Myrtle fink has already started radiation on 06/02/2018 but has not started chemotherapy due to concern for side ef fects. We discussed that radiation alone is not as effective as concurrent treatment and concurrent treatment is better than sequential treatment. Jono leonard stated that with being such a big [facility], she expected t argeted therapies to be available here since she does not want to proceed with chemotherapy. We discussed with her that the current standard of care is concurrent chemoradiation followed by immunotherap y for stage III lung cancer and targeted therapies are yet to be approv ed for stage III cancer. Patient was not convinced with this information. We provided her additional counseling and benefits and side effects of differ ent chemo regimens. We provided her written information for carboplatin, pa clitaxel and durvalumab. On her request, we also gave her information o n pemetrexed. She will go over her options. She has o ur clinic number in case if she wants to follow with us. Other emphysema 06/15/2018 Overview: Formatting of this note might be differ ent from the original. PFT 07/08/2017 - 33% of predicted, 0.81L Surgical History Surgery Date Site/Laterality Comments HYSTERECTOMY, TOTAL ABDOMINAL GALLBLADDER SURGERY LYMPH NODE BIOPSY HX HYSTERECTOMY HX CHOLECYSTECTOMY Medical History Medical History Date Comments COPD (chronic obstructive pulmonary disease) (HCC) Tobacco consumption Lung cancer (HCC) Obesity Non-small cell lung cancer (HCC) Arthritis Back pain Vision decreased Family History Medical History Relation Name Comments Arthritis-rheumatoid Father COPD Father Coronary Artery Disease Father Diabetes Father Hypertension Father Arthritis-osteo Maternal Grandfather Diabetes Maternal Grandfather Arthritis-osteo Maternal Grandmother Cancer-Colon Maternal Grandmother Diabetes Maternal Grandmother Arthritis-osteo Mother COPD Mother Cancer Mother Diabetes Mother Hypertension Mother Arthritis-osteo Paternal Grandfather Cancer Paternal Grandfather Diabetes Paternal Grandfather Arthritis-osteo Paternal Grandmother Diabetes Paternal Grandmother Arthritis-rheumatoid Sister Cancer Sister Thyroid Disease Sister Relation Name Status Comments Father Maternal Grandfather Maternal Grandmother Mother Paternal Grandfather Paternal Grandmother Sister Social History Date Tobacco Use Types Packs/Day Years Used Quit: 1992 Former Smoker Cigarettes 1.5 25 Smokeless Tobacco: Never Used Comments Alcohol Use Standard Drinks/Week Yes 3 (1 standard drink = 0.6 o z pure alcohol) Sex Assigned at Date Recorded Not on file Last Filed Vital Signs Reading Time Taken Comments Vital Sign 155/65 06/15/2018 9:19 AM CDT Blood Pressure 99 06/15/2018 9:19 AM CDT Pulse 36.4 C (97.6 F) 06/15/2018 9:19 AM CDT Temperature 17 06/15/2018 9:19 AM CDT Respiratory Rate 95% 06/15/2018 9:19 AM CDT Oxygen Saturation - - Inhaled Oxygen Concentration 89.5 kg (197 lb 6.4 oz) 06/15/2018 9:19 AM CDT Weight 165.8 cm (5' 5.28") 06/15/2018 9:19 AM CDT Height 32.57 06/15/2018 9:19 AM CDT Body Mass Index Plan of Treatment Health Maintenance Due Date Last Done Comments MEDICARE ANNUAL WELLNESS 1950 VISIT DTAP/TDAP VACCINES (1 - 1969 Tdap) HEPATITIS C SCREENING 1969 PHYSICAL (COMPREHENSIVE) 1969 EXAM BREAST CANCER SCREENING 1991 COLORECTAL CANCER 2001 SCREENING SHINGLES RECOMBINANT 2001 VACCINE (1 of 2) OSTEOPOROSIS 2016 SCREENING/MONITORING PNEUMONIA (PPSV23) 2016 VACCINE (1 of 1 - PPSV23) INFLUENZA VACCINE 07/19/2021 Results Not on filefrom Last 3 Months Insurance Type Payer Benefit Subscriber ID Effective Phone Address Plan / Dates Group Medicare MEDICARE MEDICARE [id number] [id number] PART A AND resent B [phone] Advance Directives Patient Reservations Clerk Explanation Type Date Recorded Advance Directive/DPOA
[2021-07-10] MEDS ORDERED: NS IV 1000 ML 1,000 ML ONE (06:51)
[2021-07-10] MEDS ORDERED: LIDOCAINE 1% INJ 20 ML 20 ML VIAL ONE (06:51)
[2021-07-10] MEDS ORDERED: HEParin (CATH LAB) 2,000 ML IV ONE (06:52)
[2021-07-10] MEDS ORDERED: NS IV 1000 ML 1,000 ML IV SCH ×2 (07:00→09:00)
[2021-07-10 07:45] LABS: HEMATOCRIT 39 % (35-52); HEMOGLOBIN 12.4 g/dL (11.5-16.0); MEAN CORPUSCULAR HEMOGLOBIN 33 pg (25-34); MEAN CORPUSCULAR HGB CONC 32 g/dL (32-36); MEAN CORPUSCULAR VOLUME 103 fL (80-99); MEAN PLATELET VOLUME 10.3 fL (9.0-12.2); PLATELET COUNT 235 10^3/uL (130-400); WHITE BLOOD COUNT 8.4 10^3/uL (4.3-11.0)
[2021-07-10 07:55] LABS: PROTHROMBIN TIME PATIENT 13.3 SEC (12.2-14.7)
[2021-07-10] MEDS ORDERED: fentaNYL INJ 100 MCG/2 ML AMP ONE (07:58)
[2021-07-10] MEDS ORDERED: MIDAZOLAM 5 MG/5 ML (VERSED) VIAL ONE (07:58)
--- NOTE | 2021-07-10 08:01 | Diagnostic Imaging Report ---
Portable erect AP chest at 723h. INDICATION: Preop The heart is stable in size when compared to the prior exam of 08/08/2019. As on the prior study there is a vague area of increased density overlying the left lung base. This may be secondary to chronic pulmonary disease and or superimposition of the chest/breast tissue. There is also now a another area of slight increased density overlying the right lung base. This too could be secondary to superimposition but the possibility that there is an element of mild acute pneumonia/atelectasis and perhaps some pleural fluid should be considered. The upper lungs are generally clear. The mediastinum is not widened. The osseous structures are intact. The left-sided Port-A-Cath seen previously is again evident and no different. IMPRESSION: 1. There are areas of increased density overlying each lung base. These findings may be secondary to superimposition of breath/chest tissue. However there is a question of mild pneumonia/atelectasis and perhaps some fluid in the right lung base. Clinical follow-up is recommended. 2. These results were discussed with Dr. Arevalo. Dictated by: Dictated on workstation # [id number]
[2021-07-10] MEDS ORDERED: APIX5TAB PO (08:05)
[2021-07-10] MEDS ORDERED: FLUT9.9S NS (08:05)
[2021-07-10] MEDS ORDERED: PRD10T PO (08:05)
[2021-07-10] MEDS ORDERED: METO-333 PO (08:05)
[2021-07-10] MEDS ORDERED: CLIN300C12 PO (08:05)
[2021-07-10] MEDS ORDERED: MONT10TA32 PO (08:05)
[2021-07-10] MEDS ORDERED: DILT120C88 PO (08:05)
[2021-07-10] MEDS ORDERED: FURO20TA4 PO (08:05)
[2021-07-10] MEDS ORDERED: RT-ALBUINH INH (08:05)
[2021-07-10] MEDS ORDERED: FLUT1BLS15 IH (08:05)
[2021-07-10] MEDS ORDERED: TRM50T PO (08:05)
[2021-07-10] MEDS ORDERED: SITA100T12 PO (08:05)
[2021-07-10] MEDS ORDERED: METH5TAB5 PO (08:05)
[2021-07-10] MEDS ORDERED: HYDR-3584 PO (08:05)
[2021-07-10 08:09] LABS: ALBUMIN 4.1 GM/DL (3.2-4.5); BILIRUBIN,TOTAL 0.5 MG/DL (0.1-1.0); CALCIUM 9.9 MG/DL (8.5-10.1); CREATININE SERUM 0.83 MG/DL (0.60-1.30); POTASSIUM 3.8 MMOL/L (3.6-5.0); TOTAL PROTEIN 6.9 GM/DL (6.4-8.2)
[2021-07-10] MEDS ORDERED: NIAC500T24 PO (08:10)
[2021-07-10] MEDS ORDERED: CALC600T91 PO (08:10)
[2021-07-10] MEDS ORDERED: MULT-1136 PO (08:10)
[2021-07-10] MEDS ORDERED: LUTE40CA PO (08:10)
[2021-07-10] MEDS ORDERED: CALC-250 PO (08:10)
[2021-07-10] MEDS ORDERED: [UNRECOGNIZED DRUG - CODE] PO (08:10)
[2021-07-10] MEDS ORDERED: ECHI400C16 PO (08:11)
[2021-07-10] MEDS ORDERED: CHLO-159 PO (08:11)
[2021-07-10] MEDS ORDERED: POTA99TA21 PO (08:11)
[2021-07-10] MEDS ORDERED: PHEN10TA32 PO (08:11)
[2021-07-10] MEDS ORDERED: DOCU100T7 PO (08:11)
[2021-07-10] MEDS ORDERED: BIOT25007 PO (08:11)
[2021-07-10] MEDS ORDERED: VERAPAMIL 5 MG/2 ML (CALAN) VIAL IV ONE (08:38)
[2021-07-10] MEDS ORDERED: NITRO DRIP 25000 MCG/D5W 250 ML IV ONE (08:38)
[2021-07-10] MEDS ORDERED: HEParin 1000 UNIT/ML (10ML VIAL) FOR BOLUS ONE (08:38)
--- NOTE | 2021-07-10 08:57 | Discharge Inst-Post CATH ---
Discharge Inst-CATH/EP Problems Reviewed?: Yes Post Cardiac Cath/EP D/C Inst Follow Up/Plan Appointment with Dr. Arevalo in 2 to 4 weeks <b>CARDIAC CATH/EP PROCEDURE DISCHARGE INSTRUCTIONS</b> ACTIVITY * Go Home directly and rest. * Limit activity of the leg (or wrist if it was used) for 7 days including aerobics, swimming, jogging, bicycling, etc. * Restrict stair-climbing for 7 days if possible, if not, climb up with your non-cath leg, then bring together on the same step. * Avoid lifting, pushing, pulling or excessive movement of the affected extremity for 7 days. * Customary sexual activity may be resumed after 2 days-use caution not to use a position that strains or causes pain to the affected extremity. * No driving for 24 hours. * NO SMOKING. * Avoid straining for bowel movements for 7 days. * Gentle walking on level ground is allowed. * Returning to work will depend on the type of procedure and the results. Your doctor will discuss this with you. CALL YOUR DOCTOR FOR ANY OF THE FOLLOWING: *If bleeding from the puncture site occurs- Apply gentle pressure to site with clean cloth and call your doctor or EMS. * If a knot or lump forms under the skin, increases in size, or causes pain. * If bruising appears to be worsening or moving further down your leg instead of disappearing. * Temperature above 101 F. CARE OF YOUR GROIN INCISION; * Bruising or purple discoloration of the skin near the puncture site is common. * You may shower only, no bathtub bathing for 5 days. Be careful to avoid slipping as your leg may feel stiff. * If a closure device was used on your femoral artery, please see the attached guide regarding care of the device and your leg. * Leave dressing on FOR 24 hours. CARE OF YOUR WRIST INCISION; * Bruising or purple discoloration of the skin near the puncture site is common. * You may shower. * DO NOT submerge wrist. * Leave dressing on FOR 24 hours. CHAGO AREVALO MD Jul 10, 2021 08:57
--- NOTE | 2021-07-10 09:00 | Cardiac Cath Report ---
Cardiac Cath Report Physician (s)/Electrical Systems Design Engineer (s) Physician CHAGO EISENBERG MD Pre-Procedure Diagnosis Pre-Procedure Diagnosis: Coronary artery disease Post-Procedure Note Procedure Start Date: Jul 10, 2021 Name of Procedure: Left heart catheterization Findings/Procedure Note PROCEDURE NOTE: 71-year-old lady with history of hypertension, hyperlipidemia, has been having dyspnea, had an abnormal stress test, scheduled for cardiac catheterization possible PTCA. After explaining the procedure to the patient, all pros and cons were explained, all questions were answered. The patient signed the consent and then she was placed on the cardiac catheterization laboratory. Groin was prepped SL fashion local anesthesia was used. Sheath placed in the right radial artery, [place] catheter was advanced to the left ventricular cavity, pressure was measured, pullback to the aorta, pressure was measured, intubated the right and left coronary system and angiogram was done. At the end of the procedure the sheath was removed. Vascular band deployed FINDINGS: Hemodynamics LV 101/17, end-diastolic pressure of 17 Aorta 96/56 mean of 72 ANATOMY: Left Main is free of obstructive disease Left Anterior Descending has mild disease at the midportion nonobstructive disease Left Circumflex has mild disease nonobstructive disease Right Coronary Artery has mild disease nonobstructive disease CONCLUSION: 1. Mild coronary artery disease nonobstructive disease 2. Normal left ventricular end-diastolic pressure DISCUSSION AND RECOMMENDATION: Abnormal stress test is probably due to extracardiac attenuation, medical therapy is recommended no intervention is needed Anesthesia Type: Conscious Sedation Estimated blood loss (mL): 5 ml Contrast Amount: 25 ml Total Radiation Dose: 301 mGy Post-Procedure Diagnosis Post-operative diagnosis: Chest pain Coronary artery disease Dyspnea Hypertension Hyperlipidemia CHAGO EISENBERG MD Jul 10, 2021 09:00
--- NOTE | 2021-07-10 09:01 | Conscious Sedation/ASA ---
Conscious Sedation Pre-Proced Time 08:00 ASA Score 3 For ASA 3 and 4: Consider anesthesia and medical clearance. Also, for patients with a history of failed moderate sedation consider anesthesia. Airway Lungs Heart ASA score ASA 1: a normal healthy patient ASA 2: a patient with a mild systemic disease (mid diabetes, controlled hypertension, obesity x ASA 3: a patient with a severe systemic disease that limits activity (angina, COPD, prior Myocardial infarction) ASA 4: a patient with an incapacitating disease that is a constant threat to life (CHF, renal failure) ASA 5: a moribund patient not expected to survive 24 hrs. (ruptured aneurysm) ASA 6: a declared brain- patient whose organs are being harvested. For emergent operations, add the letter E after the classification Mallampati Classification Grade 3 Sedation Plan Analgesia, Amnesia, Plan communicated to team members, Discussed options with patient/fam, Discussed risks with patient/fam The patient is an appropriate candidate to undergo the planned procedure, sedation, and anesthesia. The patient immediately re-assessed prior to indication. CHAGO EISENBERG MD Jul 10, 2021 09:01
--- NOTE | 2021-07-10 09:41 | Diagnostic Imaging Report ---
PA and lateral chest at 919h. INDICATION: Dyspnea The exam performed earlier today noted areas of increased density overlying each lung base. The possibility that there is an element of pneumonia/atelectasis and fluid involving the right lung base was raised. On this exam there does seem to be atelectasis/infiltrate and fluid involving each lower lobe, particularly the right lung base. The upper lungs are generally clear. The heart is stable in size. The mediastinum is not widened. The osseous structures are intact. There are post-kyphoplasty changes involving one of the midthoracic vertebra. IMPRESSION: There is bibasilar pneumonia/atelectasis and small bilateral pleural effusions with greater involvement on the right. Dictated by: Dictated on workstation # [id number]
[2021-07-10] MEDS ORDERED: AZIT250T PO (10:21)
[2021-07-10] MEDS ORDERED: AZITHROMYCIN 250 MG TAB (ZITHROMAX) PO ONE (10:30)
== END 2021-07-10 12:35 | disposition home or self-care (01) ==
LOC: CATH 06:47 → SDC 09:20 → CATH 12:35
PROVIDERS: ATTEND Internal Medicine Cardiovascular Disease
DX: I25.10 Atherosclerotic heart disease of native coronary artery without angina pectoris (principal); I10 Essential (primary) hypertension; I48.0 Paroxysmal atrial fibrillation; I65.23 Occlusion and stenosis of bilateral carotid arteries; J44.1 Chronic obstructive pulmonary disease with (acute) exacerbation; E66.9 Obesity, unspecified; E78.5 Hyperlipidemia, unspecified; E03.9 Hypothyroidism, unspecified; N19 Unspecified kidney failure; F23 Brief psychotic disorder; Z79.899 Other long term (current) drug therapy; Z79.01 Long term (current) use of anticoagulants; Z79.891 Long term (current) use of opiate analgesic; Z87.891 Personal history of nicotine dependence; Z68.30 Body mass index [BMI] 30.0-30.9, adult; Z85.118 Personal history of other malignant neoplasm of bronchus and lung
CPT/HCPCS: 71045; 71046; 80053; 80061; 85027; 85610; 85730; 87081; 93458; C1894; 36415

== ENCOUNTER → 2021-08-12 | Outpatient (CLI) | payer MEDICARE, MEDICAID ==
[~2021-08-12] MED LIST changes: +AZIT250T PO; +BIOT25007 PO; +CALC-250 PO; +CALC600T91 PO; +CHLO-159 PO; +CLIN300C12 PO; +DILT-27 PO; +DOCU100T7 PO; +ECHI400C16 PO; +FLUT1BLS15 IH; +FLUT9.9S NS; +FURO20TA4 PO; +HYDR-3584 PO; +HYDR-700 PO; +LUTE40CA PO; +MULT-1136 PO; +NIAC500T24 PO; +PHEN10TA32 PO; +PRD10T PO; +RT-ALBUINH INH; +SITA100T12 PO; +TIOT18CA2 INH; +TRM50T PO; +[UNRECOGNIZED DRUG - CODE] PO
--- NOTE | 2021-08-12 16:08 | Diagnostic Imaging Report ---
INDICATION: Shortness of breath, COPD. TIME OF EXAM: 3:34 PM. COMPARISON: 07/10/2021. FINDINGS: The left chest wall port has its tip overlying the SVC. There is a moderate sized right pleural effusion. The left lung is clear. There is no pneumothorax. IMPRESSION: There appears to be elevation of the right hemidiaphragm as well as a moderate right pleural effusion. Dictated by: Dictated on workstation # [id number]
== END ==
LOC: RAD 15:05
PROVIDERS: ATTEND Internal Medicine Cardiovascular Disease
DX: J90 Pleural effusion, not elsewhere classified (principal); J44.9 Chronic obstructive pulmonary disease, unspecified
CPT/HCPCS: 71046

== ENCOUNTER 2021-08-13 21:44 | Inpatient (IN) | payer MEDICARE, MEDICAID ==
[~2021-08-13] VITALS: Ht 157 cm; Wt 91.5 kg
[~2021-08-13 21:44] MED LIST changes: +CLIN-144 PO; -CLIN300C12 PO; -DILT-27 PO; -HYDR-700 PO; -TIOT18CA2 INH
[2021-08-13] MEDS ORDERED: methylPREDNISolone 125 MG (Solu-MEDROL) VIAL ONE (22:02)
[2021-08-13] MEDS ORDERED: RT-ALBUTEROL SULF 2.5 MG/3 ML PRE-MIX VIAL ONE (22:07)
--- NOTE | 2021-08-13 22:11 | ED Respiratory ---
General Chief Complaint: Respiratory Problems Stated Complaint: SOB Source: patient, EMS Exam Limitations: no limitations History of Present Illness Date Seen by Provider: Aug 13, 2021 Time Seen by Provider: 22:08 Initial Comments to ER by [facility] from home with reports of shortness of breath for the past few days. No fevers. She has known COPD. She wears oxygen chronically. EMS found her to have some respiratory distress so they gave a DuoNeb which made her anxious and then they followed that with 2 (two) mg of IV lorazepam. On arrival here she reports that she recently finished antibiotics for pneumonia. Timing/Duration: constant Severity: moderate Prior Episodes/Possible Cause: occasional episodes Associated Symptoms: cough, shortness of breath, wheezing Allergies and Home Medications Allergies Coded Allergies: levofloxacin (Verified Allergy, Severe, TACHYCARDIA, 11/12/18) Penicillins (Verified Allergy, Unknown, FAMILY ALLERGY, 11/12/18) Uncoded Allergies: SURGICAL STEEL (Allergy, Intermediate, RASH, 05/10/18) Patient Home Medication List Home Medication List Reviewed: Yes Albuterol Sulfate (Ventolin Hfa) 1 Puff Puff, 1 PUFF INH Q4H PRN for SHORTNESS OF BREATH, (Reported) Entered as Reported by: JASMIN QUINN on 07/10/21 0805 Apixaban (Eliquis) 5 Mg Tablet, 5 MG PO BID, (Reported) Entered as Reported by: JASMIN QUINN on 07/10/21 0805 Azithromycin (Zithromax) 250 Mg Tablet, 250 MG PO DAILY Prescribed by: CHAGO EISENBERG on 07/10/21 1021 Biotin (Biotin) 2,500 Mcg Capsule, 2,500 MCG PO BID, (Reported) Entered as Reported by: JASMIN QUINN on 07/10/21 0811 Calcium Carbonate (Calcium) 600 Mg Tablet, 600 MG PO HS, (Reported) Entered as Reported by: JASMIN QUINN on 07/10/21 0810 Cetirizine HCl (Cetirizine HCl) 10 Mg Tablet, 10 MG PO HS, (Reported) Entered as Reported by: JOHN JAY on 11/12/18 1248 Chlorpheniramine Maleate (Chlortabs) 4 Mg Tablet, 4 MG PO BID, (Reported) Entered as Reported by: JASMIN QUINN on 9/22/21 0811 Cholecalciferol (Vitamin D3) (Vitamin D3) 125 Mcg Tablet, 125 MCG PO DAILY, (Reported) Entered as Reported by: JASMIN QUINN on 07/10/21809 Clindamycin HCl (Clindamycin HCl) 300 Mg Capsule, 300 MG PO HS, (Reported) Entered as Reported by: JASMIN QUINN on 07/10/21804 Diltiazem HCl (Diltiazem 24Hr Cd) 120 Mg Cap.er.24h, 120 MG PO DAILY, (Reported) Entered as Reported by: JASMIN QUINN on 07/10/21804 Docusate Sodium (Stool Softener) 100 Mg Tablet, 100 MG PO BID, (Reported) Entered as Reported by: JASMIN QUINN on 07/10/21810 Echinacea (Echinacea) 400 Mg Capsule, 400 MG PO BID, (Reported) Entered as Reported by: JASMIN QUINN on 07/10/21810 Fluticasone Propionate (Flonase Allergy Relief) 9.9 Ml Wallace.susp, 1 SPRAY NS BID, (Reported) Entered as Reported by: JASMIN QUINN on 07/10/21804 Fluticasone/Umeclidin/Vilanter (Trelegy Ellipta 200-62.5-25) 1 Each Blst.w.dev, 1 EACH IH DAILY, (Reported) Entered as Reported by: JASMIN QUINN on 07/10/21804 Furosemide (Furosemide) 20 Mg Tablet, 20 MG PO DAILY PRN for FLUID RETENTION, (Reported) Entered as Reported by: JASMIN QUINN on 07/10/21804 Hydroxyzine HCl (Hydroxyzine HCl) 10 Mg Tablet, 10-20 MG PO Q8H PRN for ANXIETY, (Reported) Entered as Reported by: JASMIN QUINN on 07/10/21804 Lutein (Lutein) 40 Mg Capsule, 40 MG PO BID, (Reported) Entered as Reported by: JASMIN QUINN on 07/10/21809 Methimazole (Methimazole) 5 Mg Tablet, 5 MG PO DAILY, (Reported) Entered as Reported by: JASMIN QUINN on 07/10/21804 Metoprolol Tartrate (Metoprolol Tartrate) 25 Mg Tablet, 25 MG PO BID, (Reported) Entered as Reported by: JASMIN QUINN on 07/10/21804 Montelukast Sodium (Montelukast Sodium) 10 Mg Tablet, 10 MG PO HS, (Reported) Entered as Reported by: JASMIN QUINN on 07/10/21804 Multivitamin (Multivitamin) 1 Each Tablet, 1 EACH PO BID, (Reported) Entered as Reported by: JASMIN QUINN on 07/10/21 08 Niacinamide (Niacin) 500 Mg Tablet, 500 MG PO HS, (Reported) Entered as Reported by: JASMIN QUINN on 07/10/21809 Phenylephrine HCl (Suphedrine PE) 10 Mg Tablet, 10 MG PO BID, (Reported) Entered as Reported by: JASMIN QUINN on 07/10/21810 Potassium Gluconate (Potassium) 99 Mg Tablet, 99 MG PO BID, (Reported) Entered as Reported by: JASMIN QUINN on 07/10/21810 Prednisone (Prednisone) 10 Mg Tab, 10 MG PO DAILY, (Reported) Entered as Reported by: JASMIN QUINN on 07/10/21804 Monette Jelly (Monette Jelly) 500 Mg Capsule, 500 MG PO DAILY, (Reported) Entered as Reported by: JASMIN QUINN on 07/10/21809 Sitagliptin Phosphate (Januvia) 100 Mg Tablet, 100 MG PO DAILY, (Reported) Entered as Reported by: JASMIN QUINN on 07/10/21804 Tramadol HCl (Tramadol HCl) 50 Mg Tablet, 50 MG PO Q6H PRN for PAIN-MODERATE (5- 7), (Reported) Entered as Reported by: JASMIN QUINN on 07/10/21804 Review of Systems Review of Systems Constitutional: see HPI EENTM: see HPI Respiratory: see HPI, cough, dyspnea on exertion Cardiovascular: no symptoms reported Genitourinary: no symptoms reported Musculoskeletal: no symptoms reported Skin: no symptoms reported Psychiatric/Neurological: No Symptoms Reported Hematologic/Lymphatic: No Symptoms Reported Past Dhyqajn-Qbhjyk-Ieyskw Hx Immunizations Up To Date Tetanus Booster (TDap): Unknown Seasonal Allergies Seasonal Allergies: Yes Past Medical History Surgeries: Yes Bladder Surgery, Gallbladder, Hysterectomy Respiratory: Yes (RT LUNG MASS/LUNG CANCER, O2 6L) Pneumonia, Chronic Bronchitis, COPD Currently Using CPAP: No Currently Using BIPAP: No Cardiac: Yes Chronic Edema/Swelling, Hypertension Neurological: No 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 Disorders: No Female 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 Disorders: Denies [employer] History: Hysterectomy, Menopausal Sexually Transmitted Disease: No HIV/AIDS: No Genitourinary: Yes Bladder Infection, Renal Failure Gastrointestinal: Yes Hemorrhoids Musculoskeletal: Yes Osteoporosis, Arthritis, Chronic Back Pain, Fractures Endocrine: Yes (THYROID ISSUES--ON METHIMAZOLE) Diabetes, Insulin dep HEENT: Yes (GLASSES) Loss of Vision: Bilateral Hearing Impairment: Denies Cancer: Yes Lung Did You Recieve Any Treatments: Yes What Type of Treatment Did You: Chemotherapy, Radiation Psychosocial: Yes (RELATED TO MEDICAL ISSUES) Anxiety Integumentary: Yes (cellulitus) Blood Disorders: No Adverse Reaction/Blood Tranf: No Family Medical History Other Conditions/Hx Physical Exam Vital Signs - First Documented 08/13/21 08/13/21 22:12 22:14 Temp 36.2 Pulse 96 Resp 22 B/P (MAP) 140/87 (104) Pulse Ox 94 O2 Delivery APAP O2 Flow Rate 30.00 Capillary Refill : Height: 5'5.00" Weight: 200lbs. 0.8oz. 90.476702gp; 34.89 BMI Method: General Appearance: WD/WN, other (Chronically ill and in respiratory distress with diminished air sounds in both lungs, faint expiratory wheeze, accessory muscle use and tripod positioning. She speaks in short phrases. She knows where she is at and why she is here. When asked if she wants to be intubated if necessary she replies "no". She then goes on to state "I am a DNR".) Eyes: Bilateral Eye Normal Inspection, Bilateral Eye PERRL HEENT: PERRL/EOMI, normal ENT inspection Neck: non-tender Respiratory: normal breath sounds, no respiratory distress, no accessory muscle use Gastrointestinal: normal bowel sounds, non tender, soft Extremities: normal range of motion, non-tender Neurologic/Psychiatric: alert, normal mood/affect, oriented x 3 Skin: normal color, warm/dry Progress/Results/Core Measures Suspected Sepsis SIRS Temperature: Pulse: Respiratory Rate: Laboratory Tests 08/13/21 22:00: White Blood Count 8.7 Blood Pressure / Mean: Laboratory Tests 08/13/21 22:00: Creatinine 0.70, Platelet Count 254, Total Bilirubin 0.6 Results/Orders Lab Results Laboratory Tests Test 08/13/21 21:45 08/13/21 21:53 08/13/21 22:00 Range/Units Blood Gas Puncture Site RIGHT RADIAL Blood Gas Patient Temperature 36.8 Arterial Blood pH 7.32 *L 7.37-7.43 Arterial Blood Partial Pressure CO2 57 H 35-45 MMHG Arterial Blood Partial Pressure O2 137 H 79-93 MMHG Arterial Blood HCO3 29 H 23-27 MMOL/L Arterial Blood Total CO2 30.8 21.0-31.0 MMOL/L Arterial Blood Oxygen Saturation 99 94-100 % Arterial Blood Base Excess 3.1 H -2.5-2.5 MMOL/L Radames Test YES-POS Blood Gas Ventilator Setting NO Blood Gas Inspired Oxygen BIPAP Influenza Type A (RT-PCR) Not Detected Not Detecte Influenza Type B (RT-PCR) Not Detected Not Detecte SARS-CoV-2 RNA (RT-PCR) Not Detected Not Detecte White Blood Count 8.7 4.3-11.0 10^3/uL Red Blood Count 3.83 3.80-5.11 10^6/uL Hemoglobin 12.4 11.5-16.0 g/dL Hematocrit 39 35-52 % Mean Corpuscular Volume 102 H 80-99 fL Mean Corpuscular Hemoglobin 32 25-34 pg Mean Corpuscular Hemoglobin Concent 32 32-36 g/dL Red Cell Distribution Width 12.7 10.0-14.5 % Platelet Count 254 130-400 10^3/uL Mean Platelet Volume 10.5 9.0-12.2 fL Immature Granulocyte % (Auto) 16 % Neutrophils (%) (Auto) 75 42-75 % Lymphocytes (%) (Auto) 3 L 12-44 % Monocytes (%) (Auto) 6 0-12 % Eosinophils (%) (Auto) 0 0-10 % Basophils (%) (Auto) 0 0-10 % Neutrophils # (Auto) 6.5 1.8-7.8 10^3/uL Lymphocytes # (Auto) 0.2 L 1.0-4.0 10^3/uL Monocytes # (Auto) 0.5 0.0-1.0 10^3/uL Eosinophils # (Auto) 0.0 0.0-0.3 10^3/uL Basophils # (Auto) 0.0 0.0-0.1 10^3/uL Immature Granulocyte # (Auto) 1.4 H 0.0-0.1 10^3/uL Neutrophils % (Manual) 92 % Monocytes % (Manual) 8 % Blood Morphology Comment NORMAL Sodium Level 142 135-145 MMOL/L Potassium Level 4.0 3.6-5.0 MMOL/L Chloride Level 103 98-107 MMOL/L Carbon Dioxide Level 23 21-32 MMOL/L Anion Gap 16 H 5-14 MMOL/L Blood Urea Nitrogen 21 H 7-18 MG/DL Creatinine 0.70 0.60-1.30 MG/DL Estimat Glomerular Filtration Rate 83 BUN/Creatinine Ratio 30 Glucose Level 132 H 70-105 MG/DL Calcium Level 9.3 8.5-10.1 MG/DL Corrected Calcium 9.4 8.5-10.1 MG/DL Total Bilirubin 0.6 0.1-1.0 MG/DL Aspartate Amino Transf (AST/SGOT) 37 H 5-34 U/L Alanine Aminotransferase (ALT/SGPT) 78 H 0-55 U/L Alkaline Phosphatase 65 40-136 U/L B-Type Natriuretic Peptide 124.5 H <100.0 PG/ML Total Protein 6.4 6.4-8.2 GM/DL Albumin 3.9 3.2-4.5 GM/DL Procalcitonin 0.04 <0.10 NG/ML My Orders Orders - EVANGELINA GEORGE [employer] SUPERVISOR Cbc With Automated Diff (08/13/21 22:04) Arterial Blood Gas (08/13/21 22:04) Comprehensive Metabolic Panel (08/13/21 22:04) Procalcitonin (Pct) (08/13/21 22:04) BNP (08/13/21 22:04) Covid 19 Inhouse Test (08/13/21 22:04) Chest 1 View, Ap/Pa Only (08/13/21 22:04) Bipap (Bilevel) Set Up (08/13/21 22:04) Methylprednisolone Sod Succ (Solu-Medrol (08/13/21 22:15) Albuterol Pre-Mix Nebs (Rt) (Proventil (08/13/21 22:15) Svn Small Volume Nebulizer (08/13/21 22:04) Albuterol Pre-Mix Nebs (Rt) (Proventil (08/13/21 22:07) Influenza A And B By Pcr (08/13/21 21:53) Manual Differential (08/13/21 22:00) Medications Given in ED Current Medications Medications Dose Ordered Sig/Cresencio Route Start Time Stop Time Status Last Admin Dose Admin Albuterol Sulfate 12.5 mg ONCE ONCE INH 08/13/21 22:15 08/13/21 22:16 DC 08/13/21 22:13 12.5 MG Methylprednisolone Sodium Succinate 125 mg ONCE ONCE IVP 08/13/21 22:15 08/13/21 22:16 DC 08/13/21 22:25 125 MG Vital Signs/I&O 08/13/21 08/13/21 08/13/21 08/13/21 22:12 22:14 22:22 22:33 Temp 36.2 Pulse 96 94 Resp 22 34 B/P (MAP) 140/87 (104) Pulse Ox 94 95 O2 Delivery APAP NIV Bilevel NIV Bilevel O2 Flow Rate 30.00 3.00 Capillary Refill : Departure Communication (Admissions) On arrival here we put her on BiPAP at 14/6 30% FiO2 2300-Called Dr Pond, will admit to Stepdown here. Consult surgery tomorrow for right thoracentesis. Pt is on Eliquis. Impression Primary Impression: Respiratory failure Additional Impression: Pleural effusion Disposition: ADMITTED INPATIENT Condition: Stable Admissions Decision to Admit Reason: Admit from ER (General) Decision to Admit/Date: Aug 13, 2021 Time/Decision to Admit Time: 23:03 Departure-Patient Inst. [facility] Primary Care Physician JAMES SIFUENTES APRN (Family) Primary Care Physician EVANGELINA GEORGE APRN Aug 13, 2021 22:11
[2021-08-13 22:14] LABS: ABG BASE EXCESS 3.1 MMOL/L (-2.5-2.5); ABG OXYGEN SATURATION 99 % (94-100); ABG PCO2 57 MMHG (35-45); ABG PO2 137 MMHG (79-93); ABG TCO2 30.8 MMOL/L (21.0-31.0); ALLENS TEST YES-POS; INSPIRED O2 BIPAP; VENTILATOR NO
[2021-08-13 22:15] LABS: ABG PH 7.32 (7.37-7.43); PATIENT TEMP 36.8
[2021-08-13] MEDS ORDERED: RT-ALBUTEROL SULF 2.5 MG/3 ML PRE-MIX VIAL INH ONE (22:15)
[2021-08-13] MEDS ORDERED: methylPREDNISolone 125 MG (Solu-MEDROL) VIAL IVP ONE (22:15)
[2021-08-13 22:20] LABS: BASOPHILS % (AUTO) 0 % (0-10); EOSINOPHILS % (AUTO) 0 % (0-10); HEMATOCRIT 39 % (35-52); HEMOGLOBIN 12.4 g/dL (11.5-16.0); LYMPHOCYTES # (AUTO) 0.2 10^3/uL (1.0-4.0); LYMPHOCYTES % (AUTO) 3 % (12-44); MEAN CORPUSCULAR HEMOGLOBIN 32 pg (25-34); MEAN CORPUSCULAR HGB CONC 32 g/dL (32-36); MEAN CORPUSCULAR VOLUME 102 fL (80-99); MEAN PLATELET VOLUME 10.5 fL (9.0-12.2); MONOCYTES # (AUTO) 0.5 10^3/uL (0.0-1.0); MONOCYTES % (AUTO) 6 % (0-12); NEUTROPHILS # (AUTO) 6.5 10^3/uL (1.8-7.8); NEUTROPHILS % (AUTO) 75 % (42-75); PLATELET COUNT 254 10^3/uL (130-400); WHITE BLOOD COUNT 8.7 10^3/uL (4.3-11.0)
[2021-08-13 22:22] LABS: ALBUMIN 3.9 GM/DL (3.2-4.5)
[2021-08-13 22:23] LABS: CALCIUM 9.3 MG/DL (8.5-10.1)
[2021-08-13 22:25] LABS: TOTAL PROTEIN 6.4 GM/DL (6.4-8.2)
[2021-08-13 22:26] LABS: BILIRUBIN,TOTAL 0.6 MG/DL (0.1-1.0)
[2021-08-13 22:28] LABS: CREATININE SERUM 0.7 MG/DL (0.60-1.30)
[2021-08-13 22:38] LABS: MONOCYTES % (MANUAL) 8 %; NEUTROPHILS % (MANUAL) 92 %; RBC MORPH NORMAL
[2021-08-14] VITALS (10 sets, daily range): BP systolic 106–156; BP diastolic 58–103
[2021-08-14] MEDS ORDERED: LORazepam INJ 2 MG/ML (ATIVAN) VIAL ONE (00:08)
[2021-08-14] MEDS: LORazepam INJ 2 MG/ML (ATIVAN) VIAL IVP PRN ×4 (00:24→21:20)
[2021-08-14] MEDS ORDERED: RT-ALBUTEROL/IPRATROPIUM 3 ML (DUONEB) VIAL INH PRN (00:30)
[2021-08-14] MEDS: RT-ALBUTEROL/IPRATROPIUM 3 ML (DUONEB) VIAL INH SCH ×6 (02:25→22:27)
[2021-08-14 05:24] LABS: BASOPHILS % (AUTO) 0 % (0-10); EOSINOPHILS % (AUTO) 0 % (0-10); HEMATOCRIT 38 % (35-52); HEMOGLOBIN 11.9 g/dL (11.5-16.0); LYMPHOCYTES # (AUTO) 0.1 10^3/uL (1.0-4.0); LYMPHOCYTES % (AUTO) 2 % (12-44); MEAN CORPUSCULAR HEMOGLOBIN 32 pg (25-34); MEAN CORPUSCULAR HGB CONC 31 g/dL (32-36); MEAN CORPUSCULAR VOLUME 102 fL (80-99); MEAN PLATELET VOLUME 10.6 fL (9.0-12.2); MONOCYTES # (AUTO) 0.1 10^3/uL (0.0-1.0); MONOCYTES % (AUTO) 2 % (0-12); NEUTROPHILS # (AUTO) 5.8 10^3/uL (1.8-7.8); NEUTROPHILS % (AUTO) 80 % (42-75); PLATELET COUNT 238 10^3/uL (130-400); WHITE BLOOD COUNT 7.3 10^3/uL (4.3-11.0)
[2021-08-14 05:32] LABS: POTASSIUM 3.8 MMOL/L (3.6-5.0)
[2021-08-14 05:33] LABS: CALCIUM 9.3 MG/DL (8.5-10.1)
[2021-08-14 05:38] LABS: CREATININE SERUM 0.75 MG/DL (0.60-1.30)
[2021-08-14 05:52] LABS: BAND NEUTROPHILS 3 %; LYMPHOCYTES % (MANUAL) 3 %; METAMYELOCYTES % 2 %; MONOCYTES % (MANUAL) 1 %; MYELOCYTES % 1 %; NEUTROPHILS % (MANUAL) 90 %
--- NOTE | 2021-08-14 07:29 | Diagnostic Imaging Report ---
Indication: COPD Portable chest shows normal heart size and vascularity. There is right lower lobe atelectasis with elevation of the right hemidiaphragm. An effusion may be present on the right. The right upper lobe is clear. The left lung is clear. There is no effusion on the left. IMPRESSION: Since the 07/10/2021 exam there has developed opacification of the right lower hemithorax consistent with atelectasis and elevation of the right hemidiaphragm and possible effusion. Recommend follow-up. Dictated by: Dictated on workstation # [id number]
--- NOTE | 2021-08-14 08:03 | Consultation - Surgery ---
NATHANIEL BREWER 08/14/21 0803: History of Present Illness History of Present Illness Patient Consulted On(oliverio/time) 08/14/21 08:02 Time Seen by Provider: 08:00 History of Present Illness Surgery consult for right sided pleural effusion. Unable to obtain H and P, difficulty to arouse patient. Information contained below is from previous notes. A 71yo female presented to the ER by EMS with SOB for the past few days with a PMH of COPD and she recently finished her antibiotics for pneumonia. The SOB is constant, she has had prior episodes of SOB on occasion with associated symptoms of cough, SOB, wheezing. She is dependent on oxygen. Her PSH include bladder, gallbladder, and hysterectomy surgeries. CXR shows: Since the 07/10/2021 exam there has developed opacification of the right lower hemithorax consistent with atelectasis and elevation of the right hemidiaphragm and possible effusion. Recommend follow-up. Allergies and Home Medications Allergies Coded Allergies: levofloxacin (Verified Allergy, Severe, TACHYCARDIA, 11/12/18) Penicillins (Verified Allergy, Unknown, FAMILY ALLERGY, 11/12/18) Uncoded Allergies: SURGICAL STEEL (Allergy, Intermediate, RASH, 05/10/18) Patient Home Medication List Albuterol Sulfate (Ventolin Hfa) 1 Puff Puff, 1 PUFF INH Q4H PRN for SHORTNESS OF BREATH, (Reported) Entered as Reported by: JASMIN QUINN on 07/10/21804 Last Action: Reviewed Apixaban (Eliquis) 5 Mg Tablet, 5 MG PO BID, (Reported) Entered as Reported by: JASMIN QUINN on 07/10/21804 Last Action: Reviewed Biotin (Biotin) 2,500 Mcg Capsule, 2,500 MCG PO BID, (Reported) Entered as Reported by: JASMIN QUINN on 07/10/21 0811 Last Action: Reviewed Calcium Carbonate (Calcium) 600 Mg Tablet, 600 MG PO HS, (Reported) Entered as Reported by: JASMIN QUINN on 07/10/21809 Last Action: Reviewed Cetirizine HCl (Cetirizine HCl) 10 Mg Tablet, 10 MG PO HS, (Reported) Entered as Reported by: JOHN JAY on 11/12/18 1248 Last Action: Reviewed Chlorpheniramine Maleate (Chlortabs) 4 Mg Tablet, 4 MG PO BID, (Reported) Entered as Reported by: JASMIN QUINN on 07/10/21810 Last Action: Reviewed Cholecalciferol (Vitamin D3) (Vitamin D3) 125 Mcg Tablet, 125 MCG PO DAILY, (Reported) Entered as Reported by: JASMIN QUINN on 07/10/21809 Last Action: Reviewed Clindamycin HCl (Clindamycin HCl) 300 Mg Capsule, 300 MG PO HS, (Reported) Entered as Reported by: JASMIN QUINN on 07/10/21804 Last Action: Reviewed Diltiazem HCl (Diltiazem 24Hr ER) 120 Mg Cap.er.24h, 120 MG PO DAILY, (Reported) Entered as Reported by: SILVANA TRAN on 08/14/211319 Last Action: Reviewed Docusate Sodium (Stool Softener) 100 Mg Tablet, 100 MG PO BID, (Reported) Entered as Reported by: JASMIN QUINN on 07/10/21810 Last Action: Reviewed Echinacea (Echinacea) 400 Mg Capsule, 400 MG PO BID, (Reported) Entered as Reported by: JASMIN QUINN on 07/10/21810 Last Action: Reviewed Fluticasone Propionate (Flonase Allergy Relief) 9.9 Ml Brinson.susp, 1 SPRAY NS BID, (Reported) Entered as Reported by: JASMIN QUINN on 07/10/21804 Last Action: Reviewed Furosemide (Furosemide) 20 Mg Tablet, 20 MG PO DAILY PRN for FLUID RETENTION, (Reported) Entered as Reported by: JASMIN QUINN on 07/10/21804 Last Action: Reviewed Hydroxyzine HCl (Hydroxyzine HCl) 25 Mg Tablet, 25 MG PO Q8H PRN for ANXIETY, (Reported) Entered as Reported by: SILVANA TRAN on 08/14/211319 Last Action: Reviewed Lutein (Lutein) 40 Mg Capsule, 40 MG PO BID, (Reported) Entered as Reported by: JASMIN QUINN on 07/10/21809 Last Action: Reviewed Methimazole (Methimazole) 5 Mg Tablet, 5 MG PO DAILY, (Reported) Entered as Reported by: JASMIN QUINN on 07/10/21804 Last Action: Reviewed Metoprolol Tartrate (Metoprolol Tartrate) 25 Mg Tablet, 25 MG PO BID, (Reported) Entered as Reported by: JASMIN QUINN on 07/10/21804 Last Action: Reviewed Mometasone/Formoterol (Dulera 200 Mcg/5 Mcg Inhaler) 13 Gm Hfa.aer.ad, 2 PUFF IH BID, (Reported) Entered as Reported by: SILVANA TRAN on 08/14/211319 Last Action: Reviewed Montelukast Sodium (Montelukast Sodium) 10 Mg Tablet, 10 MG PO HS, (Reported) Entered as Reported by: JASMIN QUINN on 07/10/21804 Last Action: Reviewed Multivitamin (Multivitamin) 1 Each Tablet, 1 EACH PO BID, (Reported) Entered as Reported by: JASMIN QUINN on 07/10/21809 Last Action: Reviewed Niacinamide (Niacin) 500 Mg Tablet, 500 MG PO HS, (Reported) Entered as Reported by: JASMIN QUINN on 07/10/21809 Last Action: Reviewed Phenylephrine HCl (Suphedrine PE) 10 Mg Tablet, 10 MG PO BID, (Reported) Entered as Reported by: JASMIN QUINN on 07/10/21810 Last Action: Reviewed Potassium Gluconate (Potassium) 99 Mg Tablet, 99 MG PO BID, (Reported) Entered as Reported by: JASMNI QUINN on 07/10/21810 Last Action: Reviewed Prednisone (Prednisone) 10 Mg Tab, 10 MG PO DAILY, (Reported) Entered as Reported by: JASMIN QUINN on 07/10/21804 Last Action: Reviewed Silt Jelly (Silt Jelly) 500 Mg Capsule, 500 MG PO DAILY, (Reported) Entered as Reported by: JASMIN QUINN on 07/10/21809 Last Action: Reviewed Sitagliptin Phosphate (Januvia) 100 Mg Tablet, 100 MG PO DAILY, (Reported) Entered as Reported by: JASMIN QUINN on 07/10/21804 Last Action: Reviewed Tiotropium [place] (Spiriva) 1 Inh Aerp, 1 PUFF INH DAILY, (Reported) Entered as Reported by: SILVANA TRAN on 08/14/211319 Last Action: Reviewed Tramadol HCl (Tramadol HCl) 50 Mg Tablet, 50 MG PO Q6H PRN for PAIN-MODERATE (5- 7), (Reported) Entered as Reported by: JASMIN QUINN on 07/10/21804 Last Action: Reviewed Discontinued Medications Azithromycin (Zithromax) 250 Mg Tablet, 250 MG PO DAILY Discontinued Reason: No Longer Taking Prescribed by: CHAGO EISENBERG on 07/10/21 102 Last Action: Discontinued Diltiazem HCl (Diltiazem 24Hr Cd) 120 Mg Cap.er.24h, 120 MG PO DAILY, (Reported) Discontinued Reason: No Longer Taking Entered as Reported by: JASMIN QUINN on 07/10/21804 Last Action: Discontinued Fluticasone/Umeclidin/Vilanter (Trelegy Ellipta 200-62.5-25) 1 Each Blst.w.dev, 1 EACH IH DAILY, (Reported) Discontinued Reason: No Longer Taking Entered as Reported by: JASMIN QUINN on 07/10/21804 Last Action: Discontinued Hydroxyzine HCl (Hydroxyzine HCl) 10 Mg Tablet, 10-20 MG PO Q8H PRN for ANXIETY, (Reported) Discontinued Reason: No Longer Taking Entered as Reported by: JASMIN QUINN on 07/10/21804 Last Action: Discontinued Past Ajgkqgk-Swmhut-Slgxne Hx Patient Social History Smoking Status: Former Smoker Former Smoker, Quit: Oct 19, 1992 Type Used: Cigarettes Recent Hopitalizations: Yes Alcohol Use?: No Immunizations Up To Date Tetanus Booster (TDap): Unknown Date of Pneumonia Vaccine: Jul 26, 2018 Date of Influenza Vaccine: Jul 26, 2018 Seasonal Allergies Seasonal Allergies: Yes Surgeries History of Surgeries: Yes Surgeries: Bladder Surgery, Gallbladder, Hysterectomy Respiratory History of Respiratory Disorde: Yes (RT LUNG MASS/LUNG CANCER, O2 6L) Respiratory Disorders: Pneumonia, Chronic Bronchitis, COPD Cardiovascular History of Cardiac Disorders: Yes Cardiac Disorders: Chronic Edema/Swelling, Hypertension Neurological History of Neurological Disord: No 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 System Hx 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 Disorders: No Sexually Transmitted Disease: No HIV/AIDS: No Female 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 Disorders: 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, 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 Genitourinary History of Genitourinary Disor: Yes Genitourinary Disorders: Bladder Infection, Renal Failure Gastrointestinal History of Gastrointestinal Di: Yes Gastrointestinal Disorders: Hemorrhoids Musculoskeletal History of Musculoskeletal Dis: Yes Musculoskeletal Disorders: Osteoporosis, Arthritis, Chronic Back Pain, Fractures Endocrine History of Endocrine Disorders: Yes (THYROID ISSUES--ON METHIMAZOLE) Endocrine Disorders: Diabetes, Insulin dep HEENT History of HEENT Disorders: Yes (GLASSES) Loss of Vision: Bilateral Hearing Impairment: Denies Cancer History of Cancer: Yes Cancer: Lung Psychosocial History of Psychiatric Problem: Yes (RELATED TO MEDICAL ISSUES) Behavioral Health Disorders: Anxiety Integumentary History of Skin or Integumenta: Yes (cellulitus) Blood Transfusions History of Blood Disorders: No Adverse Reaction to a Blood Tr: No Family Medical History Significant Family History: Other Conditions/Hx Review of Systems-General ROS-Unable to Obtain: unabel to obtain Physical Exam-General Problems Physical Exam Vital Signs Vital Signs - First Documented 08/13/21 08/13/21 08/14/21 22:12 22:14 00:14 Temp 36.2 Pulse 96 Resp 22 B/P (MAP) 140/87 (104) Pulse Ox 94 O2 Delivery APAP O2 Flow Rate 30.00 FiO2 30 Capillary Refill : Less Than 3 Seconds General Appearance: no apparent distress, obese, other (difficulty to arouse) Respiratory: decreased breath sounds Gastrointestinal: normal bowel sounds, soft Neurologic/Psychiatric: other (pt does not respond to communication or touch) Skin: normal color, warm/dry Data Review Labs Laboratory Tests 08/13/21 21:45: Blood Gas Puncture Site RIGHT RADIAL, Blood Gas Patient Temperature 36.8, Arterial Blood pH 7.32*L, Arterial Blood Partial Pressure CO2 57H, Arterial Blood Partial Pressure O2 137H, Arterial Blood HCO3 29H, Arterial Blood Total CO2 30.8, Arterial Blood Oxygen Saturation 99, Arterial Blood Base Excess 3.1H, Radames Test YES-POS, Blood Gas Ventilator Setting NO, Blood Gas Inspired Oxygen BIPAP 08/13/21 21:53: Influenza Type A (RT-PCR) Not Detected, Influenza Type B (RT-PCR) Not Detected, SARS-CoV-2 RNA (RT-PCR) Not Detected 08/13/21 22:00: White Blood Count 8.7, Red Blood Count 3.83, Hemoglobin 12.4, Hematocrit 39, Mean Corpuscular Volume 102H, Mean Corpuscular Hemoglobin 32, Mean Corpuscular Hemoglobin Concent 32, Red Cell Distribution Width 12.7, Platelet Count 254, Mean Platelet Volume 10.5, Immature Granulocyte % (Auto) 16, Neutrophils (%) (Auto) 75, Lymphocytes (%) (Auto) 3L, Monocytes (%) (Auto) 6, Eosinophils (%) (Auto) 0, Basophils (%) (Auto) 0, Neutrophils # (Auto) 6.5, Lymphocytes # (Auto) 0.2L, Monocytes # (Auto) 0.5, Eosinophils # (Auto) 0.0, Basophils # (Auto) 0.0, Immature Granulocyte # (Auto) 1.4H, Neutrophils % (Manual) 92, Monocytes % (Manual) 8, Blood Morphology Comment NORMAL, Sodium Level 142, Potassium Level 4.0, Chloride Level 103, Carbon Dioxide Level 23, Anion Gap 16H, Blood Urea Nitrogen 21H, Creatinine 0.70, Estimat Glomerular Filtration Rate 83, BUN/Crea tinine Ratio 30, Glucose Level 132H, Calcium Level 9.3, Corrected Calcium 9.4, Total Bilirubin 0.6, Aspartate Amino Transf (AST/SGOT) 37H, Alanine Aminotransferase (ALT/SGPT) 78H, Alkaline Phosphatase 65, B-Type Natriuretic Peptide 124.5H, Total Protein 6.4, Albumin 3.9, Procalcitonin 0.04 08/14/21 05:18: White Blood Count 7.3, Red Blood Count 3.72L, Hemoglobin 11.9, Hematocrit 38, Mean Corpuscular Volume 102H, Mean Corpuscular Hemoglobin 32, Mean Corpuscular Hemoglobin Concent 31L, Red Cell Distribution Width 12.7, Platelet Count 238, Mean Platelet Volume 10.6, Immature Granulocyte % (Auto) 16, Neutrophils (%) (Auto) 80H, Lymphocytes (%) (Auto) 2L, Monocytes (%) (Auto) 2, Eosinophils (%) (Auto) 0, Basophils (%) (Auto) 0, Neutrophils # (Auto) 5.8, Lymphocytes # (Auto) 0.1L, Monocytes # (Auto) 0.1, Eosinophils # (Auto) 0.0, Basophils # (Auto) 0.0, Immature Granulocyte # (Auto) 1.2H, Neutrophils % (Manual) 90, Monocytes % (Manual) 1, Sodium Level 142, Potassium Level 3.8, Chloride Level 101, Carbon Dioxide Level 22, Anion Gap 19H, Blood Urea Nitrogen 24H, Creatinine 0.75, Estimat Glomerular Filtration Rate 76, BUN/Creatinine Ratio 32, Glucose Level 176H, Calcium Level 9.3, Lymphocytes % (Manual) 3, Metamyelocytes % 2, Myelocytes % 1, Band Neutrophils 3, Macrocytosis SLIGHT Assessment/Plan Assessment/Plan Assessment/Plan R sided pleural effusion SOB COPD Treat her COPD with meds and oxygen. On Bipap of oxygen flow rate of 45L/min. U/S guided thoracentesis was performed by Dr. Bolivar and a CXR ordered after the procedure . SNEHA BOLIVAR DO 08/14/21 1529: History of Present Illness History of Present Illness Time Seen by Provider: 10:39 History of Present Illness Surgery asked to consult regarding pleural effusion; possible thoracentesis. HPI per ED: to ER by [facility] from home with reports of shortness of breath for the past few days. No fevers. She has known COPD. She wears oxygen chronically. EMS found her to have some respiratory distress so they gave a DuoNeb which made her anxious and then they followed that with 2 (two) mg of IV lorazepam. On arrival here she reports that she recently finished antibiotics for pneumonia. Timing/Duration: constant Severity: moderate Prior Episodes/Possible Cause: occasional episodes Associated Symptoms: cough, shortness of breath, wheezing When I saw pt she was sitting at bedside, BiPap on and just had US to asses the fluid in lung. Complained of pain and SOB; pt also very anxious. Allergies and Home Medications Allergies Coded Allergies: levofloxacin (Verified Allergy, Severe, TACHYCARDIA, 11/12/18) Penicillins (Verified Allergy, Unknown, FAMILY ALLERGY, 11/12/18) Uncoded Allergies: SURGICAL STEEL (Allergy, Intermediate, RASH, 05/10/18) Patient Home Medication List Home Medication List Reviewed: Yes Albuterol Sulfate (Ventolin Hfa) 1 Puff Puff, 1 PUFF INH Q4H PRN for SHORTNESS OF BREATH, (Reported) Entered as Reported by: JASMIN QUINN on 07/10/21804 Last Action: Reviewed Apixaban (Eliquis) 5 Mg Tablet, 5 MG PO BID, (Reported) Entered as Reported by: JASMIN QUINN on 07/10/21804 Last Action: Reviewed Biotin (Biotin) 2,500 Mcg Capsule, 2,500 MCG PO BID, (Reported) Entered as Reported by: JASMIN QUINN on 07/10/21810 Last Action: Reviewed Calcium Carbonate (Calcium) 600 Mg Tablet, 600 MG PO HS, (Reported) Entered as Reported by: JASMIN QUINN on 07/10/21809 Last Action: Reviewed Cetirizine HCl (Cetirizine HCl) 10 Mg Tablet, 10 MG PO HS, (Reported) Entered as Reported by: JOHN JAY on 11/12/18 124 Last Action: Reviewed Chlorpheniramine Maleate (Chlortabs) 4 Mg Tablet, 4 MG PO BID, (Reported) Entered as Reported by: JASMIN QUINN on 07/10/21810 Last Action: Reviewed Cholecalciferol (Vitamin D3) (Vitamin D3) 125 Mcg Tablet, 125 MCG PO DAILY, (Reported) Entered as Reported by: JASMIN QUINN on 07/10/21809 Last Action: Reviewed Clindamycin HCl (Clindamycin HCl) 300 Mg Capsule, 300 MG PO HS, (Reported) Entered as Reported by: JASMIN QUINN on 07/10/21804 Last Action: Reviewed Diltiazem HCl (Diltiazem 24Hr ER) 120 Mg Cap.er.24h, 120 MG PO DAILY, (Reported) Entered as Reported by: SILVANA TRAN on 08/14/211319 Last Action: Reviewed Docusate Sodium (Stool Softener) 100 Mg Tablet, 100 MG PO BID, (Reported) Entered as Reported by: JASMIN QUINN on 07/10/21810 Last Action: Reviewed Echinacea (Echinacea) 400 Mg Capsule, 400 MG PO BID, (Reported) Entered as Reported by: JASMIN QUINN on 07/10/21810 Last Action: Reviewed Fluticasone Propionate (Flonase Allergy Relief) 9.9 Ml Brinson.susp, 1 SPRAY NS BID, (Reported) Entered as Reported by: JASMIN QUINN on 07/10/21804 Last Action: Reviewed Furosemide (Furosemide) 20 Mg Tablet, 20 MG PO DAILY PRN for FLUID RETENTION, (Reported) Entered as Reported by: JASMIN QUINN on 07/10/21804 Last Action: Reviewed Hydroxyzine HCl (Hydroxyzine HCl) 25 Mg Tablet, 25 MG PO Q8H PRN for ANXIETY, (Reported) Entered as Reported by: SILVANA TRAN on 08/14/211319 Last Action: Reviewed Lutein (Lutein) 40 Mg Capsule, 40 MG PO BID, (Reported) Entered as Reported by: JASMIN QUINN on 07/10/21809 Last Action: Reviewed Methimazole (Methimazole) 5 Mg Tablet, 5 MG PO DAILY, (Reported) Entered as Reported by: JASMIN QUINN on 07/10/21804 Last Action: Reviewed Metoprolol Tartrate (Metoprolol Tartrate) 25 Mg Tablet, 25 MG PO BID, (Reported) Entered as Reported by: JASMIN QUINN on 07/10/21804 Last Action: Reviewed Mometasone/Formoterol (Dulera 200 Mcg/5 Mcg Inhaler) 13 Gm Hfa.aer.ad, 2 PUFF IH BID, (Reported) Entered as Reported by: SILVANA TRAN on 08/14/211319 Last Action: Reviewed Montelukast Sodium (Montelukast Sodium) 10 Mg Tablet, 10 MG PO HS, (Reported) Entered as Reported by: JASMIN QUINN on 07/10/21804 Last Action: Reviewed Multivitamin (Multivitamin) 1 Each Tablet, 1 EACH PO BID, (Reported) Entered as Reported by: JASMIN QUINN on 07/10/21809 Last Action: Reviewed Niacinamide (Niacin) 500 Mg Tablet, 500 MG PO HS, (Reported) Entered as Reported by: JASMIN QUINN on 07/10/21809 Last Action: Reviewed Phenylephrine HCl (Suphedrine PE) 10 Mg Tablet, 10 MG PO BID, (Reported) Entered as Reported by: JASMIN QUINN on 07/10/21810 Last Action: Reviewed Potassium Gluconate (Potassium) 99 Mg Tablet, 99 MG PO BID, (Reported) Entered as Reported by: JASMIN QUINN on 07/10/21810 Last Action: Reviewed Prednisone (Prednisone) 10 Mg Tab, 10 MG PO DAILY, (Reported) Entered as Reported by: JASMIN QUINN on 07/10/21804 Last Action: Reviewed Silt Jelly (Silt Jelly) 500 Mg Capsule, 500 MG PO DAILY, (Reported) Entered as Reported by: JASMIN QUINN on 07/10/21809 Last Action: Reviewed Sitagliptin Phosphate (Januvia) 100 Mg Tablet, 100 MG PO DAILY, (Reported) Entered as Reported by: JASMIN QUINN on 07/10/21804 Last Action: Reviewed Tiotropium [place] (Spiriva) 1 Inh Aerp, 1 PUFF INH DAILY, (Reported) Entered as Reported by: SILVANA TRAN on 08/14/21 1320 Last Action: Reviewed Tramadol HCl (Tramadol HCl) 50 Mg Tablet, 50 MG PO Q6H PRN for PAIN-MODERATE (5- 7), (Reported) Entered as Reported by: JASMIN QUINN on 07/10/21804 Last Action: Reviewed Discontinued Medications Azithromycin (Zithromax) 250 Mg Tablet, 250 MG PO DAILY Discontinued Reason: No Longer Taking Prescribed by: CHAGO EISENBERG on 07/10/21 1021 Last Action: Discontinued Diltiazem HCl (Diltiazem 24Hr Cd) 120 Mg Cap.er.24h, 120 MG PO DAILY, (Reported) Discontinued Reason: No Longer Taking Entered as Reported by: JASMIN QUINN on 07/10/21804 Last Action: Discontinued Fluticasone/Umeclidin/Vilanter (Trelegy Ellipta 200-62.5-25) 1 Each Blst.w.dev, 1 EACH IH DAILY, (Reported) Discontinued Reason: No Longer Taking Entered as Reported by: JASMIN QUINN on 07/10/21804 Last Action: Discontinued Hydroxyzine HCl (Hydroxyzine HCl) 10 Mg Tablet, 10-20 MG PO Q8H PRN for ANXIETY, (Reported) Discontinued Reason: No Longer Taking Entered as Reported by: JASMIN QUINN on 07/10/21804 Last Action: Discontinued Past Yljwpqk-Pecvey-Fvrztk Hx Patient Social History Smoking Status: Former Smoker Alcohol Use?: No Surgeries History of Surgeries: Yes (port placement) Surgeries: Bladder Surgery, Gallbladder, Hysterectomy Respiratory History of Respiratory Disorde: Yes Respiratory Disorders: Chronic Bronchitis, COPD, Emphysema Cardiovascular History of Cardiac Disorders: Yes Cardiac Disorders: Chronic Edema/Swelling, Hypertension Neurological History of Neurological Disord: No Genitourinary History of Genitourinary Disor: Yes Genitourinary Disorders: Renal Failure Gastrointestinal History of Gastrointestinal Di: Yes Gastrointestinal Disorders: Gastroesophageal Reflux, Hemorrhoids, Gall Bladder Disease Musculoskeletal History of Musculoskeletal Dis: Yes Musculoskeletal Disorders: Osteoporosis, Arthritis, Chronic Back Pain, Fractures Endocrine History of Endocrine Disorders: Yes Endocrine Disorders: Hyperthyroidism, Diabetes, Non-Insulin dep HEENT History of HEENT Disorders: Yes (vision loss) Loss of Vision: Bilateral Hearing Impairment: Hard of Hearing Cancer Cancer: Lung Psychosocial History of Psychiatric Problem: Yes Behavioral Health Disorders: Anxiety Integumentary History of Skin or Integumenta: No Family Medical History Significant Family History: Cancer Review of Systems-General Constitutional: malaise, weakness EENTM: blurred vision; No mouth swelling, No epistaxis, No throat swelling Respiratory: cough, dyspnea on exertion; No hemoptysis, No phlegm; short of breath Cardiovascular: chest pain, edema Gastrointestinal: nausea; No vomiting Genitourinary: No dysuria, No frequency, No hematuria Musculoskeletal: back pain, joint pain, muscle pain, muscle stiffness Skin: change in color, change in hair/nails Psychiatric/Neurological: Anxiety; Denies Numbness, Denies Seizure Physical Exam-General Problems Physical Exam General Appearance: moderate distress (secondary to anxiety and work of breathing), obese Eyes: Bilateral Eye PERRL, Bilateral Eye EOMI HEENT: pharynx normal; No scleral icterus (R), No scleral icterus (L) Neck: non-tender, supple Respiratory: respiratory distress, decreased breath sounds (right base and dullness to percussion), accessory muscle use, wheezing Cardiovascular: regular rate, rhythm, no murmur Gastrointestinal: normal bowel sounds, soft, no organomegaly Back: no CVA tenderness, no vertebral tenderness Extremities: no pedal edema, no calf tenderness Neurologic/Psychiatric: no motor/sensory deficits, alert, oriented x 3 Skin: normal color, warm/dry Lymphatic: no adenopathy (neck, axilla or groin) Data Review Radiology Date of Exam:08/13/21 CHEST 1 VIEW, AP/PA ONLY Indication: COPD Portable chest shows normal heart size and vascularity. There is right lower lobe atelectasis with elevation of the right hemidiaphragm. An effusion may be present on the right. The right upper lobe is clear. The left lung is clear. There is no effusion on the left. IMPRESSION: Since the 07/10/2021 exam there has developed opacification of the right lower hemithorax consistent with atelectasis and elevation of the right hemidiaphragm and possible effusion. Recommend follow-up. Dictated by: Dictated on workstation # [id number] Dict: 08/14/21 0723 Trans: 08/14/21 0849 [facility] [id number] Interpreted by: VALENCIA MAHMOOD MD Electronically signed by: VALENCIA MAHMOOD MD 08/14/21 0849 Date of Exam:08/14/21 US THORACENT ASP W [id number] Indication: Right pleural effusion Ultrasound images were obtained prior to right thoracentesis by Dr. Bolivar. Ultrasound images demonstrate a large nonloculated right pleural effusion. Dr. Bolivar subsequently performed thoracentesis, see his dictation for details. IMPRESSION: Ultrasound images demonstrate a large right pleural effusion without loculation as above. Dictated by: Dictated on workstation # [id number] Dict: 08/14/21 1308 Trans: 08/14/21 1416 [facility] [id number] Interpreted by: RUSSELL PENN MD Electronically signed by: RUSSELL PENN MD 08/14/21 1416 Assessment/Plan Assessment/Plan Assessment/Plan Acute on Chronic Respiratory Failure New R sided pleural effusion SOB COPD Treat her COPD with meds and oxygen. On Bipap of oxygen flow rate of 45L/min. Plan U/S guided thoracentesis and a CXR after the procedure. Discussed risks and complications with pt; not limited to pain, bleeding (she supposedly stopped her Eliquis), infection and even pneumothorax. All questions answered to her sa tisfaction. Supervisory-Addendum Brief Verification & Attestation Participated in pt care: history, MDM, physical Personally performed: exam, history, MDM, supervision of care Care discussed with: Medical Student Procedures: n/a Verification and Attestation of Medical Student E/M Service A medical student performed and documented this service. I then reviewed and verified all information documented by the medical student and made modifications to such information, when appropriate. I personally performed a physical exam, medical decision making and then discussed any differences between the notes and made revisions as necessary to create one note. Sneha Bolivar , 08/14/21 , 15:46 DANIELLANATHANIEL Aug 14, 2021 08:03 SNEHA BOLIVAR DO Aug 14, 2021 15:29
[2021-08-14 11:47] LABS: AMYLASE,BODY FLUID 33 U/L; GLUCOSE,BODY FLUID 172 MG/DL; LDH,BODY FLUID 485 U/L; TOTAL PROTEIN,BODY FLUID 3.9 G/DL
[2021-08-14 11:53] LABS: BODY FLUID APPEARENCE SLT CLDY; BODY FLUID COLOR YELLOW; BODY FLUID RBC COUNT 3850 /uL; BODY FLUID SOURCE PLEURAL; BODY FLUID WBC TOTAL COUNT 650 /uL
[2021-08-14 12:00] LABS: BF OTHER CELLS 22 %; LYMPHOCYTES,BODY FLUID 61 %
--- NOTE | 2021-08-14 12:07 | Diagnostic Imaging Report ---
EXAMINATION: Chest 1 view HISTORY: Status post thoracentesis COMPARISON: 08/13/2021 FINDINGS: Heart size and pulmonary vasculature are stable. There has been interval decompression of the large right pleural effusion with minimal residual fluid remaining. There is now a large right basilar pneumothorax. Atelectasis or scarring is seen within the right lung base. Left-sided portacatheter is unchanged. The osseous structures are intact. IMPRESSION: 1. Right basilar pneumothorax status post thoracentesis. Significant reduction in the right pleural effusion. Critical finding. Report was called to Oscar [place], nurse office of Dr. Waddell by kita at 12:06pm. Dictated by: Dictated on workstation # [id number]
--- NOTE | 2021-08-14 13:13 | Diagnostic Imaging Report ---
Indication: Right pleural effusion Ultrasound images were obtained prior to right thoracentesis by Dr. Waddell. Ultrasound images demonstrate a large nonloculated right pleural effusion. Dr. Waddell subsequently performed thoracentesis, see his dictation for details. IMPRESSION: Ultrasound images demonstrate a large right pleural effusion without loculation as above. Dictated by: Dictated on workstation # [id number]
[2021-08-14] MEDS ORDERED: TIOT18CA2 INH (13:20)
[2021-08-14] MEDS ORDERED: HYDR-700 PO (13:20)
[2021-08-14] MEDS ORDERED: DILT-27 PO (13:20)
[2021-08-14] MEDS ORDERED: MOME13HF IH (13:20)
--- NOTE | 2021-08-14 15:58 | Progress Note-Post Operative ---
Post-Operative Progess Note Surgeon (s)/Tile Designer (s) Surgeon SNEHA BOLIVAR DO Tile Designer: none Pre-Operative Diagnosis Right pleural Effusion, Acute on Chronic Resp failure Post-Operative Diagnosis same Procedure & Operative Findings Date of Procedure 08/14/21 Procedure Performed/Findings Thoracentesis with US guidance PROCEDURE NOTE: After informed consent was obtained, the patient was in her bed in Cardiac step down; sitting on edge of bed, draped over her table. US confirmed pleural effusion and marked the spot most likely to drain all the fluid. She was sterilely prepped and draped in normal fashion. At site of US marking then infiltrated local lidocaine and then down toward the rib and over the top of the rib. Next made a stab incision with #11 blade and then carefully advanced the Rueh-C-cxmprmau needle. Going over the top of the rib to stay away from vessels and never. Immediately got a good flash of yellow straw colored fluid with scant (1-2 drops of blood), removed the needle. Advanced the catheter over the needle into the pleural cavity. At this point, we then hooked up to suction Vaccutainer and got about 2000ml out. She tolerated the procedure. Sponge, instrument and needle count correct at the end of the case. Anesthesia Type local lidocaine Estimated Blood Loss Estimated blood loss (mL): scant Specimens/Packing Specimens Removed pleural fluid SNEHA BOLIVAR DO Aug 14, 2021 15:58
--- NOTE | 2021-08-14 17:10 | Diagnostic Imaging Report ---
INDICATION: Shortness of breath. Comparison is made with a prior study performed earlier in the same day. FINDINGS: The patient's lateral and basilar pneumothorax has slightly decreased in size compared to the prior examination. Consolidative changes of the medial aspect of the right lung base are unchanged as is the parenchymal distortion within the lateral aspect of the right lung. The left lung remains clear. There is no left pneumothorax. There is no large effusion. Heart and mediastinal contours are stable. IMPRESSION: 1. Decreasing size of the patient's right lateral basilar pneumothorax. 2. Background features of underlying interstitial lung disease with some stable consolidation within the medial aspect of the right lung base and some stable parenchymal distortion along the lateral margins of the right midlung. Left lung remains clear. Dictated by: Dictated on workstation # [id number]
[2021-08-14] MEDS ORDERED: NON-FORMULARY MEDICATION 1 EA EA (Hydroxyzine HCl 25 MG) PO PRN (17:15)
[2021-08-14] MEDS: hydrOXYzine (VISTARIL/ATARAX) 25 MG capsule/tablet PO PRN (18:10)
[2021-08-14] MEDS: RT--FLUTICASONE/SALMETEROL 232-14 (AIRDUO RespiCLICK) IH SCH (18:37)
[2021-08-14] MEDS: APIXABAN 5 MG (ELIQUIS) TABLET PO SCH (19:54)
[2021-08-14] MEDS: MONTELUKAST 10 MG (SINGULAIR) TAB PO SCH (19:54)
--- NOTE | 2021-08-14 20:00 | History & Physical ---
HPI History of Present Illness: 71 yo F with significant lung dz and oxygen dependence that was recently treated for PNA and states that she just has not felt any better and has been getting worse the last week. Denies any fevers or chills and states that she does not have any sick contacts. She has felt increasing weak and states that she has been feeling her heart racing but denies any chest pain. She has a h/o Lung Ca s/p radiation in which she had a hospitalization with radiation pneumonitis back in 2018. She was previously following with Dr De La Cruz but has not seen anyone else since. In ER found to have pleural effusion that was drained by Dr Waddell and patient states this afternoon that she has not noticed an improvement since procedure. Source: patient, old records Exam Limitations: no limitations Date seen by provider: Aug 14, 2021 Time Seen by Provider: 16:30 Attending Physician Tracy Gregg MD PCP [facility] Consult Date of Admission Aug 13, 2021 at 22:49 Home Medications Home Medications Reviewed patient Home Medication Reconciliation performed by pharmacy medication reconciliations poultry service technician and/or nursing. Patients Allergies have been reviewed. Allergies Coded Allergies: levofloxacin (Verified Allergy, Severe, TACHYCARDIA, 11/12/18) Penicillins (Verified Allergy, Unknown, FAMILY ALLERGY, 11/12/18) Uncoded Allergies: SURGICAL STEEL (Allergy, Intermediate, RASH, 05/10/18) [id number] Hx Patient Social History Smoking Status: Former Smoker Recent Hopitalizations: Yes Alcohol Use?: No Immunizations Up To Date Tetanus Booster (TDap): Unknown Date of Pneumonia Vaccine: Jul 26, 2018 Date of Influenza Vaccine: Jul 26, 2018 Past Medical History COPD Atrial Fibrillation HTN CAD HLD H/o Lung Ca s/p radiation Family Medical History Significant Family History: Cancer Review of Systems ([facility]) Constitutional: No chills, No fever; malaise, weakness EENTM: no symptoms reported; No mouth pain, No nose congestion Respiratory: cough, dyspnea on exertion, short of breath Cardiovascular: No chest pain; edema, palpitations Gastrointestinal: no symptoms reported; No abdominal pain, No constipation, No diarrhea, No nausea, No vomiting Genitourinary: no symptoms reported; No dysuria, No frequency, No hematuria : No Musculoskeletal: back pain Skin: no symptoms reported; No lesions, No rash Psychiatric/Neurological: Anxiety; Denies Headache, Denies Numbness, Denies Weakness Reviewed Test Results Reviewed Test Results Lab Laboratory Tests Test 08/13/21 21:45 08/13/21 21:53 08/13/21 22:00 08/14/21 05:18 Range/Units Blood Gas Puncture Site RIGHT RADIAL Blood Gas Patient Temperature 36.8 Arterial Blood pH 7.32 *L 7.37-7.43 Arterial Blood Partial Pressure CO2 57 H 35-45 MMHG Arterial Blood Partial Pressure O2 137 H 79-93 MMHG Arterial Blood HCO3 29 H 23-27 MMOL/L Arterial Blood Total CO2 30.8 21.0-31.0 MMOL/L Arterial Blood Oxygen Saturation 99 94-100 % Arterial Blood Base Excess 3.1 H -2.5-2.5 MMOL/L Radames Test YES-POS Blood Gas Ventilator Setting NO Blood Gas Inspired Oxygen BIPAP Influenza Type A (RT-PCR) Not Detected Not Detecte Influenza Type B (RT-PCR) Not Detected Not Detecte SARS-CoV-2 RNA (RT-PCR) Not Detected Not Detecte White Blood Count 8.7 7.3 4.3-11.0 10^3/uL Red Blood Count 3.83 3.72 L 3.80-5.11 10^6/uL Hemoglobin 12.4 11.9 11.5-16.0 g/dL Hematocrit 39 38 35-52 % Mean Corpuscular Volume 102 H 102 H 80-99 fL Mean Corpuscular Hemoglobin 32 32 25-34 pg Mean Corpuscular Hemoglobin Concent 32 31 L 32-36 g/dL Red Cell Distribution Width 12.7 12.7 10.0-14.5 % Platelet Count 254 238 130-400 10^3/uL Mean Platelet Volume 10.5 10.6 9.0-12.2 fL Immature Granulocyte % (Auto) 16 16 % Neutrophils (%) (Auto) 75 80 H 42-75 % Lymphocytes (%) (Auto) 3 L 2 L 12-44 % Monocytes (%) (Auto) 6 2 0-12 % Eosinophils (%) (Auto) 0 0 0-10 % Basophils (%) (Auto) 0 0 0-10 % Neutrophils # (Auto) 6.5 5.8 1.8-7.8 10^3/uL Lymphocytes # (Auto) 0.2 L 0.1 L 1.0-4.0 10^3/uL Monocytes # (Auto) 0.5 0.1 0.0-1.0 10^3/uL Eosinophils # (Auto) 0.0 0.0 0.0-0.3 10^3/uL Basophils # (Auto) 0.0 0.0 0.0-0.1 10^3/uL Immature Granulocyte # (Auto) 1.4 H 1.2 H 0.0-0.1 10^3/uL Neutrophils % (Manual) 92 90 % Monocytes % (Manual) 8 1 % Blood Morphology Comment NORMAL Sodium Level 142 142 135-145 MMOL/L Potassium Level 4.0 3.8 3.6-5.0 MMOL/L Chloride Level 103 101 98-107 MMOL/L Carbon Dioxide Level 23 22 21-32 MMOL/L Anion Gap 16 H 19 H 5-14 MMOL/L Blood Urea Nitrogen 21 H 24 H 7-18 MG/DL Creatinine 0.70 0.75 0.60-1.30 MG/DL Estimat Glomerular Filtration Rate 83 76 BUN/Creatinine Ratio 30 32 Glucose Level 132 H 176 H 70-105 MG/DL Calcium Level 9.3 9.3 8.5-10.1 MG/DL Corrected Calcium 9.4 8.5-10.1 MG/DL Total Bilirubin 0.6 0.1-1.0 MG/DL Aspartate Amino Transf (AST/SGOT) 37 H 5-34 U/L Alanine Aminotransferase (ALT/SGPT) 78 H 0-55 U/L Alkaline Phosphatase 65 40-136 U/L B-Type Natriuretic Peptide 124.5 H <100.0 PG/ML Total Protein 6.4 6.4-8.2 GM/DL Albumin 3.9 3.2-4.5 GM/DL Procalcitonin 0.04 <0.10 NG/ML Lymphocytes % (Manual) 3 % Metamyelocytes % 2 % Myelocytes % 1 % Band Neutrophils 3 % Macrocytosis SLIGHT Test 08/14/21 11:04 08/14/21 11:50 08/14/21 16:50 Range/Units Body Fluid Source PLEURAL Body Fluid Color YELLOW Body Fluid Appearance SLT CLDY Body Fluid WBC 650 /uL Body Fluid RBC 3850 /uL Body Fluid Polynuclear WBCs 7 % Body Fluid Mononuclear WBCs 10 % Body Fluid Lymphocytes 61 % Body Fluid Eosinophils % Body Fluid Other Cells 22 % Body Fluid Glucose 172 MG/DL Body Fluid Total Protein 3.9 G/DL Body Fluid Lactate Dehydrogenase 485 U/L Body Fluid Amylase 33 U/L Body Fluid Creatinine 0.71 MG/DL Glucometer 210 H 175 H 70-110 MG/DL Radiology Date of Exam:08/13/21 CHEST 1 VIEW, AP/PA ONLY Indication: COPD Portable chest shows normal heart size and vascularity. There is right lower lobe atelectasis with elevation of the right hemidiaphragm. An effusion may be present on the right. The right upper lobe is clear. The left lung is clear. There is no effusion on the left. IMPRESSION: Since the 07/10/2021 exam there has developed opacification of the right lower hemithorax consistent with atelectasis and elevation of the right hemidiaphragm and possible effusion. Recommend follow-up. Dictated by: Dictated on workstation # [id number] Dict: 08/14/21 0723 Trans: 08/14/21 0849 [facility] [id number] Interpreted by: VALENCIA MAHMOOD MD Electronically signed by: VALENCIA MAHMOOD MD 08/14/21 0849 Date of Exam:08/14/21 US THORACENT ASP W [id number] Indication: Right pleural effusion Ultrasound images were obtained prior to right thoracentesis by Dr. Waddell. Ultrasound images demonstrate a large nonloculated right pleural effusion. Dr. Waddell subsequently performed thoracentesis, see his dictation for details. IMPRESSION: Ultrasound images demonstrate a large right pleural effusion without loculation as above. Dictated by: Dictated on workstation # [id number] Dict: 08/14/21 1308 Trans: 08/14/21 1416 [facility] [id number] Interpreted by: RUSSELL PENN MD Electronically signed by: RUSSELL PENN MD 08/14/21 1416 Physical Exam-([facility]) Physical Exam Vital Signs VS - Last 72 Hours, by Label 08/13/21 08/13/21 08/13/21 08/13/21 22:12 22:14 22:22 22:33 Temp 36.2 Pulse 96 94 Resp 22 34 B/P (MAP) 140/87 (104) Pulse Ox 94 95 O2 Delivery APAP NIV Bilevel NIV Bilevel O2 Flow Rate 30.00 3.00 08/13/21 08/13/21 08/14/21 08/14/21 23:01 23:45 00:14 00:30 Temp 36.2 36.2 36.3 Pulse 98 98 96 92 Resp 22 24 B/P (MAP) 127/112 129/94 149/97 (114) Pulse Ox 94 94 97 O2 Delivery APAP APAP NIV Bilevel O2 Flow Rate 45.00 FiO2 30 08/14/21 08/14/21 08/14/21 08/14/21 01:00 01:41 02:27 04:00 Pulse 90 86 Resp 25 Pulse Ox 95 O2 Delivery NIV Bilevel NIV Bilevel O2 Flow Rate 35.00 FiO2 45 45 08/14/21 08/14/21 08/14/21 08/14/21 04:00 04:56 06:35 06:37 Temp 36.2 Pulse 93 96 Resp 25 B/P (MAP) 138/87 (104) Pulse Ox 98 96 95 O2 Delivery NIV Bilevel NIV Bilevel O2 Flow Rate 45.00 45.00 FiO2 45 08/14/21 08/14/21 08/14/21 08/14/21 07:53 08:00 08:50 09:52 Temp 36.0 Pulse 99 96 Resp 25 B/P (MAP) 106/58 (74) Pulse Ox 97 97 O2 Delivery NIV Bilevel NIV Bilevel O2 Flow Rate 45.00 45.00 FiO2 45 08/14/21 08/14/21 08/14/21 08/14/21 11:50 12:00 12:20 14:32 Temp 36.6 Pulse 120 Resp 16 B/P (MAP) 156/84 (108) Pulse Ox 98 97 O2 Delivery NIV Bilevel NIV Bilevel High Flow N/C High Flow N/C O2 Flow Rate 35.00 4.00 4.00 FiO2 35 95 08/14/21 08/14/21 08/14/21 08/14/21 15:30 15:55 16:14 17:45 Temp 36.5 Pulse 118 Resp 27 B/P (MAP) 146/89 (108) Pulse Ox 100 98 O2 Delivery Non Rebreather Non Rebreather Non Rebreather High Flow N/C O2 Flow Rate 15.00 15.00 5.00 100.00 08/14/21 18:40 Pulse Ox 95 O2 Delivery High Flow N/C O2 Flow Rate 10.00 Capillary Refill : Less Than 3 Seconds General Appearance: WD/WN, moderate distress (increased work of breathing at rest) HEENT: PERRL/EOMI Neck: non-tender, full range of motion, supple Respiratory: chest non-tender, accessory muscle use, wheezing Cardiovascular: normal peripheral pulses, no edema, no murmur Gastrointestinal: normal bowel sounds, non tender, soft Back: no CVA tenderness Extremities: normal range of motion, non-tender, normal capillary refill, pedal edema Neurologic/Psychiatric: facilities engineering manager II-XII nml as tested, alert, normal mood/affect, oriented x 3 Skin: normal color, warm/dry Lymphatic: no adenopathy Assessment/Plan Assessment/Plan Admission Status: Inpatient Order (span 2 midnights) Reason for Inpatient Admission: Patient high risk for decompensation, requiring more oxygen (1) Acute and chronic respiratory failure with hypoxia Status: Acute Assessment & Plan: - MAT protocol, steroids, will titrate oxygen as tolerated, Dr Waddell consulted 2/2 large pleural effusion (2) Pleural effusion on right Status: Acute Assessment & Plan: - Drained by Dr Waddell (3) Elevated LFTs Status: Acute Assessment & Plan: - Will continue to monitor (4) Atrial fibrillation Status: Chronic Assessment & Plan: - Rate controlled on medication, OAC, will continue to monitor Qualifiers: Qualified Codes: I48.0 - Paroxysmal atrial fibrillation (5) HTN (hypertension) Status: Chronic Qualifiers: Qualified Codes: I10 - Essential (primary) hypertension (6) HLD (hyperlipidemia) Status: Chronic Qualifiers: Qualified Codes: E78.5 - Hyperlipidemia, unspecified (7) CAD (coronary artery disease) Status: Chronic Qualifiers: Qualified Codes: I25.10 - Atherosclerotic heart disease of [place] coronary artery without angina pectoris (8) DVT prophylaxis Status: Acute Assessment & Plan: - OAC TRACY GREGG MD Aug 14, 2021 20:00
[2021-08-14] MEDS ORDERED: NON-FORMULARY MEDICATION 1 EA EA (Mometasone/Formoterol (Dulera 200 Mcg/5 Mcg Inhaler) 2 P IH SCH (21:00)
[2021-08-15] VITALS (15 sets, daily range): BP systolic 107–166; BP diastolic 62–120
[2021-08-15] MEDS: RT-ALBUTEROL/IPRATROPIUM 3 ML (DUONEB) VIAL INH SCH ×6 (02:23→21:29)
[2021-08-15 06:29] LABS: ALBUMIN 3.5 GM/DL (3.2-4.5); POTASSIUM 3.8 MMOL/L (3.6-5.0)
[2021-08-15 06:30] LABS: CALCIUM 8.7 MG/DL (8.5-10.1)
[2021-08-15 06:31] LABS: TOTAL PROTEIN 5.9 GM/DL (6.4-8.2)
[2021-08-15 06:33] LABS: BILIRUBIN,TOTAL 0.4 MG/DL (0.1-1.0)
[2021-08-15 06:35] LABS: BASOPHILS % (AUTO) 0 % (0-10); CREATININE SERUM 0.74 MG/DL (0.60-1.30); EOSINOPHILS % (AUTO) 0 % (0-10); HEMATOCRIT 36 % (35-52); HEMOGLOBIN 11.9 g/dL (11.5-16.0); LYMPHOCYTES # (AUTO) 0.3 10^3/uL (1.0-4.0); LYMPHOCYTES % (AUTO) 2 % (12-44); MEAN CORPUSCULAR HEMOGLOBIN 33 pg (25-34); MEAN CORPUSCULAR HGB CONC 33 g/dL (32-36); MEAN CORPUSCULAR VOLUME 100 fL (80-99); MEAN PLATELET VOLUME 10.8 fL (9.0-12.2); MONOCYTES # (AUTO) 2.3 10^3/uL (0.0-1.0); MONOCYTES % (AUTO) 16 % (0-12); NEUTROPHILS # (AUTO) 10.6 10^3/uL (1.8-7.8); NEUTROPHILS % (AUTO) 73 % (42-75); PLATELET COUNT 235 10^3/uL (130-400); WHITE BLOOD COUNT 14.5 10^3/uL (4.3-11.0)
--- NOTE | 2021-08-15 07:04 | Progress Note - Surgery ---
DAYDAY FIGUEROA MED STUDENT 08/15/21 0704: Subjective Date Seen by a Provider: Aug 15, 2021 Time Seen by a Provider: 06:00 Subjective/Events-last exam Patient is sitting up in bed appearing uncomfortable she is on 10l o2 by NC sating in mid to high 90s. She is complaining of shortness of breath, pain throughout her chest "my lungs", she can not pinpoint the pain, describes it as "it hurts", and nausea with out emesis. She states she is not passing flatus or having bowel movements. Review of Systems General: No Chills, No Night Sweats HEENT: No Visual Changes Pulmonary: Dyspnea, Pleuritic Chest Pain Cardiovascular: No: Palpitations Gastrointestinal: Nausea; No: Vomiting, Abdominal Pain Genitourinary: No Hematuria Musculoskeletal: No: leg pain, foot pain Neurological: Weakness Objective Exam Vital Signs Date Time Temp Pulse Resp B/P (MAP) Pulse Ox O2 Delivery O2 Flow Rate FiO2 08/15/21 04:00 120 17 149/71 (97) 98 High Flow N/C 10.00 08/15/21 04:00 High Flow N/C 10.00 08/15/21 02:24 98 High Flow N/C 10.00 08/15/21 00:00 High Flow N/C 10.00 08/15/21 00:00 36.1 124 30 151/84 (106) 98 High Flow N/C 10.00 08/14/21 22:27 95 High Flow N/C 10.00 08/14/21 20:00 Non Rebreather 15.00 08/14/21 20:00 36.3 135 27 122/103 (109) 89 High Flow N/C 15.00 08/14/21 18:40 95 High Flow N/C 10.00 08/14/21 17:45 98 High Flow N/C 5.00 08/14/21 16:14 36.5 118 27 146/89 (108) 100 Non Rebreather 15.00 100.00 08/14/21 15:55 Non Rebreather 15.00 08/14/21 15:30 Non Rebreather 08/14/21 14:32 High Flow N/C 4.00 95 08/14/21 12:20 97 High Flow N/C 4.00 08/14/21 12:00 36.6 120 16 156/84 (108) 98 NIV Bilevel 35.00 08/14/21 11:50 NIV Bilevel 35 08/14/21 09:52 96 25 97 45.00 08/14/21 08:50 NIV Bilevel 45 08/14/21 08:00 36.0 08/14/21 07:53 99 24 106/58 (74) 97 NIV Bilevel 45.00 I & O 08/15/21 07:00 Intake Total 525 ml Output Total 800 ml Balance -275 ml Capillary Refill : Less Than 3 Seconds General Appearance: Anxious, Chronically ill, Mild Distress HEENT: No Scleral Icterus (L), No Scleral Icterus (R) Neck: Normal Inspection, Non Tender Respiratory: Accessory Muscle Use, Decreased Breath Sounds (throughout but worse in right lower lobe), Wheezing Cardiovascular: Tachycardia Gastrointestinal: non tender, soft Neurologic/Psychiatric: Alert, Oriented x3 Results Lab Laboratory Tests 08/14/21 11:04: Body Fluid Source PLEURAL, Body Fluid Color YELLOW, Body Fluid Appearance SLT CLDY, Body Fluid WBC 650, Body Fluid RBC 3850, Body Fluid Polynuclear WBCs 7, Body Fluid Mononuclear WBCs 10, Body Fluid Lymphocytes 61, Body Fluid Eosinophils , Body Fluid Other Cells 22, Body Fluid Glucose 172, Body Fluid Total Protein 3.9, Body Fluid Lactate Dehydrogenase 485, Body Fluid Amylase 33, Body Fluid Creatinine 0.71 08/14/21 11:50: Glucometer 210H 08/14/21 16:50: Glucometer 175H 08/14/21 20:46: Glucometer 162H 08/15/21 06:02: White Blood Count 14.5H, Red Blood Count 3.64L, Hemoglobin 11.9, Hematocrit 36, Mean Corpuscular Volume 100H, Mean Corpuscular Hemoglobin 33, Mean Corpuscular Hemoglobin Concent 33, Red Cell Distribution Width 12.9, Platelet Count 235, Mean Platelet Volume 10.8, Immature Granulocyte % (Auto) 9, Neutrophils (%) (Auto) 73, Lymphocytes (%) (Auto) 2L, Monocytes (%) (Auto) 16H, Eosinophils (%) (Auto) 0, Basophils (%) (Auto) 0, Neutrophils # (Auto) 10.6H, Lymphocytes # (Auto) 0.3L, Monocytes # (Auto) 2.3H, Eosinophils # (Auto) 0.0, Basophils # (Auto) 0.0, Immature Granulocyte # (Auto) 1.2H, Percent Immature Platelet Frac tion 5.2, Sodium Level 143, Potassium Level 3.8, Chloride Level 104, Carbon Dioxide Level 25, Anion Gap 14, Blood Urea Nitrogen 27H, Creatinine 0.74, Estimat Glomerular Filtration Rate 78, BUN/Creatinine Ratio 36, Glucose Level 148H, Calcium Level 8.7, Corrected Calcium 9.1, Total Bilirubin 0.4, Aspartate Amino Transf (AST/SGOT) 31, Alanine Aminotransferase (ALT/SGPT) 75H, Alkaline Phosphatase 58, Total Protein 5.9L, Albumin 3.5 Assessment/Plan Assessment/Plan Assessment/Plan Acute on Chronic Respiratory Failure R sided pleural effusion s/p thoracentisis SOB COPD History of Lung Cancer s/p chemorads follows with Dr. Jin Treat her COPD with meds and oxygen. Medicine is following. She is on NC cannula today. X-ray looks worse then yesterday, waiting on report but appears to be consolidation of RLL, no surgical intervention planned at this time, will continue to follow. MANJIT WADDELL DO 08/15/21 1306: Subjective Time Seen by a Provider: 11:41 Subjective/Events-last exam Pt seen and examined, sitting up in chair; but sleeping on table. Once woken up states she is still SOB. States she is on 8L of O2 at home. Review of Systems General: No Chills, No Night Sweats; Fatigue, Malaise Pulmonary: Dyspnea, Pleuritic Chest Pain Cardiovascular: No: Palpitations Gastrointestinal: Nausea; No: Vomiting, Abdominal Pain Objective Exam General Appearance: Anxious, Chronically ill, Mild Distress Respiratory: Accessory Muscle Use, Decreased Breath Sounds (throughout but worse in right lower lobe), Respiratory Distress, Wheezing Cardiovascular: No Murmur, Tachycardia Gastrointestinal: non tender, soft Assessment/Plan Assessment/Plan Assessment/Plan Acute on Chronic Respiratory Failure R sided pleural effusion s/p thoracentisis SOB COPD History of Lung Cancer s/p chemorads follows with Dr. Jin I reviewed the CXR myself, the PTX is slightly better; but lung still hasn't fully expanded. Pt is now on same O2 as at home, most of her complaints and problems are probably due to her anxiety. Would treat her COPD with nebulizers, meds and oxygen. Medicine is following. She is on NC cannula right now at 8L. Supervisory-Addendum Brief Verification & Attestation Participated in pt care: history, MDM, physical Personally performed: exam, history, MDM, supervision of care Care discussed with: Medical Student Procedures: n/a Verification and Attestation of Medical Student E/M Service A medical student performed and documented this service. I then reviewed and verified all information documented by the medical student and made modifications to such information, when appropriate. I personally performed a physical exam, medical decision making and then discussed any differences between the notes and made revisions as necessary to create one note. Manjit Waddell , 08/15/21 , 13:06 DAYDAY FIGUEROA MED STUDENT Aug 15, 2021 07:04 MANJIT WADDELL DO Aug 15, 2021 13:06
[2021-08-15 07:07] LABS: BAND NEUTROPHILS 0 %; BASOPHILS % (MANUAL) 0 %; EOSINOPHILS % (MANUAL) 0 %; LYMPHOCYTES % (MANUAL) 2 %; MONOCYTES % (MANUAL) 13 %; NEUTROPHILS % (MANUAL) 85 %; RBC MORPH NORMAL
[2021-08-15] MEDS: RT--FLUTICASONE/SALMETEROL 232-14 (AIRDUO RespiCLICK) IH SCH ×2 (07:34→18:49)
[2021-08-15] MEDS ORDERED: predniSONE 10 MG TAB PO SCH (08:00)
[2021-08-15] MEDS: APIXABAN 5 MG (ELIQUIS) TABLET PO SCH ×2 (08:01→20:53)
[2021-08-15] MEDS: predniSONE 20 MG TAB PO SCH ×2 (08:01→17:29)
[2021-08-15] MEDS: dilTIAZem120 MG (CARDIZEM CD) CAP PO SCH (08:01)
--- NOTE | 2021-08-15 08:33 | Diagnostic Imaging Report ---
Indication: Postthoracentesis Frontal chest obtained at 0551 a.m. and compared to yesterday Heart is normal in size. Parenchymal opacity in the right base again noted, compatible with atelectatic change and/or infiltrate. Right basilar pneumothorax is smaller compared to the prior study. There is no significant pleural fluid on the left side. There is some minimal pleural fluid on the right side. There are chronic changes in the right ribs. Port-A-Cath is stable. IMPRESSION: Decreasing right basilar pneumothorax compared to the prior study with underlying parenchymal opacity in the right lung base unchanged. No new findings otherwise seen. Dictated by: Dictated on workstation # [id number]
[2021-08-15] MEDS: LORazepam INJ 2 MG/ML (ATIVAN) VIAL IVP PRN ×3 (09:06→23:55)
[2021-08-15] MEDS ORDERED: FLU QUAD HIGH DOSE 240 MCG/0.7 ML 2021-22 (FLUZONE) IM ONE (10:00)
--- NOTE | 2021-08-15 13:33 | Progress Note ---
Subjective Subjective/Events-last exam Patient stating that she still feels short of breath. She is belly breathing with oxygenation at 98%. Tolerating PO diet. + anxiety. Denies any chest pain, abdominal pain. Review of Systems General: Fatigue Pulmonary: Dyspnea; No Cough Cardiovascular: Edema; No: Chest Pain, Palpitations Gastrointestinal: No: Nausea, Vomiting, Abdominal Pain, Diarrhea, Constipation Neurological: Weakness, Incoordination Objective Exam Last Set of Vital Signs Vital Signs Date Time Temp Pulse Resp B/P (MAP) Pulse Ox O2 Delivery O2 Flow Rate FiO2 08/15/21 11:49 36.0 112 18 116/87 (97) 98 High Flow N/C 8.00 08/14/21 14:32 95 Capillary Refill : Less Than 3 Seconds I&O Intake and Output 08/15/21 00:00 Intake Total 475 ml Output Total 750 ml Balance -275 ml Intake Oral 475 ml Output Urine Total 750 ml General: Alert, Oriented X3, Moderate Distress (belly breathing at rest with conversational dyspnea) Lungs: Clear to Auscultation Heart: No Murmurs, Other (tachycardic rate) Abdomen: Normal Bowel Sounds, Soft, No Tenderness, No Masses Extremities: Other (2+ pitting edema) Neuro: Cranial Nerves 3-12 NL Results/Procedures Lab Laboratory Tests 08/14/21 16:50: Glucometer 175H 08/14/21 20:46: Glucometer 162H 08/15/21 06:02: White Blood Count 14.5H, Red Blood Count 3.64L, Hemoglobin 11.9, Hematocrit 36, Mean Corpuscular Volume 100H, Mean Corpuscular Hemoglobin 33, Mean Corpuscular Hemoglobin Concent 33, Red Cell Distribution Width 12.9, Platelet Count 235, Mean Platelet Volume 10.8, Immature Granulocyte % (Auto) 9, Neutrophils (%) (Auto) 73, Lymphocytes (%) (Auto) 2L, Monocytes (%) (Auto) 16H, Eosinophils (%) (Auto) 0, Basophils (%) (Auto) 0, Neutrophils # (Auto) 10.6H, Lymphocytes # (Au to) 0.3L, Monocytes # (Auto) 2.3H, Eosinophils # (Auto) 0.0, Basophils # (Auto) 0.0, Immature Granulocyte # (Auto) 1.2H, Neutrophils % (Manual) 85, Lymphocytes % (Manual) 2, Monocytes % (Manual) 13, Eosinophils % (Manual) 0, Basophils % (Manual) 0, Band Neutrophils 0, Percent Immature Platelet Fraction 5.2, Blood Morphology Comment NORMAL, Sodium Level 143, Potassium Level 3.8, Chloride Level 104, Carbon Dioxide Level 25, Anion Gap 14, Blood Urea Nitrogen 27H, Creatinine 0.74, Estimat Glomerular Filtration Rate 78, BUN/Creatinine Ratio 36, Glucose [place] 148H, Calcium Level 8.7, Corrected Calcium 9.1, Total Bilirubin 0.4, Aspartate Amino Transf (AST/SGOT) 31, Alanine Aminotransferase (ALT/SGPT) 75H, Alkaline Phosphatase 58, Total Protein 5.9L, Albumin 3.5 08/15/21 11:21: Glucometer 169H Microbiology 08/14/21 Gram Stain - Final, Resulted 08/14/21 Anaerobic Culture, Resulted Pending 08/14/21 Body Fluid Culture, Resulted Pending Radiology Date of Exam:08/13/21 CHEST 1 VIEW, AP/PA ONLY Indication: COPD Portable chest shows normal heart size and vascularity. There is right lower lobe atelectasis with elevation of the right hemidiaphragm. An effusion may be present on the right. The right upper lobe is clear. The left lung is clear. There is no effusion on the left. IMPRESSION: Since the 07/10/2021 exam there has developed opacification of the right lower hemithorax consistent with atelectasis and elevation of the right hemidiaphragm and possible effusion. Recommend follow-up. Dictated by: Dictated on workstation # [id number] Dict: 08/14/21 0723 Trans: 08/14/21 0849 [facility] [id number] Interpreted by: VALENCIA MAHMOOD MD Electronically signed by: VALENCIA MAHMOOD MD 08/14/21 0849 Date of Exam:08/14/21 US THORACENT ASP W [id number] Indication: Right pleural effusion Ultrasound images were obtained prior to right thoracentesis by Dr. Waddell. Ultrasound images demonstrate a large nonloculated right pleural effusion. Dr. Waddell subsequently performed thoracentesis, see his dictation for details. IMPRESSION: Ultrasound images demonstrate a large right pleural effusion without loculation as above. Dictated by: Dictated on workstation # [id number] Dict: 08/14/21 1308 Trans: 08/14/21 1416 [facility] [id number] Interpreted by: RUSSELL PENN MD Electronically signed by: RUSSELL PENN MD 08/14/21 1416 Assessment/Plan Assessment/Plan (1) Acute and chronic respiratory failure with hypoxia Status: Acute Assessment & Plan: - MAT protocol, steroids, will titrate oxygen as tolerated, Dr Waddell consulted 2/2 large pleural effusion 08/15: CXR continues to improve, reviewed images, will continue to titrate oxygen as tolerated, baseline oxygen 6-8 L at home, added antibiotics today 2/2 continued increase work of breathing (2) Pleural effusion on right Status: Acute Assessment & Plan: - Drained by Dr Waddell (3) Elevated LFTs Status: Acute Assessment & Plan: - Will continue to monitor (4) Atrial fibrillation Status: Chronic Assessment & Plan: - Rate controlled on medication, OAC, will continue to monitor Qualifiers: Qualified Codes: I48.0 - Paroxysmal atrial fibrillation (5) HTN (hypertension) Status: Chronic Qualifiers: Qualified Codes: I10 - Essential (primary) hypertension (6) HLD (hyperlipidemia) Status: Chronic Qualifiers: Qualified Codes: E78.5 - Hyperlipidemia, unspecified (7) CAD (coronary artery disease) Status: Chronic Qualifiers: Qualified Codes: I25.10 - Atherosclerotic heart disease of [place] coronary artery without angina pectoris (8) DVT prophylaxis Status: Acute Assessment & Plan: - OAC TRACY GREGG MD Aug 15, 2021 13:33
[2021-08-15] MEDS ORDERED: dilTIAZem DRIP PRE-MIX 125 ML IV ONE (13:42)
--- NOTE | 2021-08-15 14:58 | Diagnostic Imaging Report ---
INDICATION: Pneumothorax. COMPARISON: 08/15/2021 at 05:51 a.m. FINDINGS: Single view of the chest demonstrates persistent but decreasing right basilar pneumothorax. No mediastinal shift is seen. The heart remains enlarged. Opacities are seen, right greater than left. IMPRESSION: Persistent but decreasing right basilar pneumothorax. Dictated by: Dictated on workstation # [id number]
[2021-08-15] MEDS ORDERED: methylPREDNISolone 40 MG/ML (Solu-MEDROL) VIAL IV ONE (15:00)
[2021-08-15] MEDS: CEFEPIME INJECTION 1,000 MG in WATER (STERILE) FOR INJECTION 10 ML IV SCH ×2 (15:03→20:53)
--- NOTE | 2021-08-15 15:20 | Tele-ICU Consult ---
History of Present Illness History of Present Illness Date Seen by Provider: Aug 15, 2021 Time Seen by Provider: 15:20 Date of Admission Allergies and Home Medications Allergies Coded Allergies: levofloxacin (Verified Allergy, Severe, TACHYCARDIA, 11/12/18) Penicillins (Verified Allergy, Unknown, FAMILY ALLERGY, 11/12/18) Uncoded Allergies: SURGICAL STEEL (Allergy, Intermediate, RASH, 05/10/18) Home Medications Albuterol Sulfate 1 Puff Puff, 1 PUFF INH Q4H PRN for SHORTNESS OF BREATH, (Reported) Apixaban 5 Mg Tablet, 5 MG PO BID, (Reported) Biotin 2,500 Mcg Capsule, 2,500 MCG PO BID, (Reported) Calcium Carbonate 600 Mg Tablet, 600 MG PO HS, (Reported) Cetirizine HCl 10 Mg Tablet, 10 MG PO HS, (Reported) Chlorpheniramine Maleate 4 Mg Tablet, 4 MG PO BID, (Reported) Cholecalciferol (Vitamin D3) 125 Mcg Tablet, 125 MCG PO DAILY, (Reported) Clindamycin HCl 300 Mg Capsule, 300 MG PO HS, (Reported) Diltiazem HCl 120 Mg Cap.er.24h, 120 MG PO DAILY, (Reported) Docusate Sodium 100 Mg Tablet, 100 MG PO BID, (Reported) Echinacea 400 Mg Capsule, 400 MG PO BID, (Reported) Fluticasone Propionate 9.9 Ml [place].susp, 1 SPRAY NS BID, (Reported) Furosemide 20 Mg Tablet, 20 MG PO DAILY PRN for FLUID RETENTION, (Reported) Hydroxyzine HCl 25 Mg Tablet, 25 MG PO Q8H PRN for ANXIETY, (Reported) Lutein 40 Mg Capsule, 40 MG PO BID, (Reported) Methimazole 5 Mg Tablet, 5 MG PO DAILY, (Reported) Metoprolol Tartrate 25 Mg Tablet, 25 MG PO BID, (Reported) Mometasone/Formoterol 13 Gm Hfa.aer.ad, 2 PUFF IH BID, (Reported) Montelukast Sodium 10 Mg Tablet, 10 MG PO HS, (Reported) Multivitamin 1 Each Tablet, 1 EACH PO BID, (Reported) Niacinamide 500 Mg Tablet, 500 MG PO HS, (Reported) Phenylephrine HCl 10 Mg Tablet, 10 MG PO BID, (Reported) Potassium Gluconate 99 Mg Tablet, 99 MG PO BID, (Reported) Prednisone 10 Mg Tab, 10 MG PO DAILY, (Reported) [place] Jelly 500 Mg Capsule, 500 MG PO DAILY, (Reported) Sitagliptin Phosphate 100 Mg Tablet, 100 MG PO DAILY, (Reported) Tiotropium [place] 1 Inh Aerp, 1 PUFF INH DAILY, (Reported) Tramadol HCl 50 Mg Tablet, 50 MG PO Q6H PRN for PAIN-MODERATE (5-7), (Reported) Past Medical/Social/Family Hx Patient Social History Tobacco Use?: No Smoking Status: Former Smoker Substance use?: No Alcohol Use?: No Pt stated abuse/neglect: No Immunizations Up To Date Influenza Vaccine Up-to-Date: No; Not Current First/Initial COVID19 Vaccinat: MARCH 2021 Tetanus Booster (TDap): Unknown Date of Pneumonia Vaccine: Jul 26, 2018 Current Status Advance Directives: Yes Communicates: Verbally Primary Language: German Preferred Spoken Language: German Past Medical History COPD Atrial Fibrillation HTN CAD HLD H/o Lung Ca s/p radiation Review of Systems Constitutional: see HPI Sepsis Event Evaluation Height, Weight, BMI Height: 5'5.00" Weight: 200lbs. 0.8oz. 90.561200oe; 30.00 BMI Method: Exam Exam Patient acknowledged, consented, and participated in this virtual visit which was conducted using real time audio/video Vital Signs Date Time Temp Pulse Resp B/P (MAP) Pulse Ox O2 Delivery O2 Flow Rate FiO2 08/15/21 14:46 94 Vapotherm 25.00 60 08/15/21 14:00 118 16 161/111 (128) 92 Vapotherm 25.00 60.00 08/15/21 13:43 122 08/15/21 13:30 162/102 (122) 08/15/21 11:49 36.0 112 18 116/87 (97) 98 High Flow N/C 8.00 08/15/21 11:41 High Flow N/C 10.00 08/15/21 11:12 98 High Flow N/C 10.00 08/15/21 08:22 High Flow N/C 10.00 08/15/21 08:16 37.0 122 16 152/79 (103) 97 08/15/21 07:34 97 High Flow N/C 10.00 08/15/21 04:00 120 17 149/71 (97) 98 High Flow N/C 10.00 08/15/21 04:00 High Flow N/C 10.00 08/15/21 02:24 98 High Flow N/C 10.00 08/15/21 00:00 High Flow N/C 10.00 08/15/21 00:00 36.1 124 30 151/84 (106) 98 High Flow N/C 10.00 08/14/21 22:27 95 High Flow N/C 10.00 08/14/21 20:00 Non Rebreather 15.00 08/14/21 20:00 36.3 135 27 122/103 (109) 89 High Flow N/C 15.00 08/14/21 18:40 95 High Flow N/C 10.00 08/14/21 17:45 98 High Flow N/C 5.00 08/14/21 16:14 36.5 118 27 146/89 (108) 100 Non Rebreather 15.00 100.00 08/14/21 15:55 Non Rebreather 15.00 08/14/21 15:30 Non Rebreather I & O 08/15/21 07:00 Intake Total 525 ml Output Total 800 ml Balance -275 ml Height & Weight Height: 5'5.00" Weight: 200lbs. 0.8oz. 90.536031ey; 30.00 BMI Method: General Appearance: Anxious, Chronically ill, Mild Distress HEENT: No Scleral Icterus (L), No Scleral Icterus (R) Neck: Normal Inspection, Non Tender Respiratory: Accessory Muscle Use, Decreased Breath Sounds (throughout but w orse in right lower lobe), Respiratory Distress, Wheezing Cardiovascular: No Murmur, Tachycardia Capillary Refill: Less Than 3 Seconds Gastrointestinal: non tender, soft Neurologic/Psychiatric: Alert, Oriented x3 Results Lab Laboratory Tests 08/13/21 22:00 08/14/21 05:18 08/15/21 06:02 Assessment/Plan Assessment/Plan (Tele-ICU Physician , consultation) Available chart/ vitals / labs / Images reviewed H&P is from ER notes Patient's information available about PMH, Shx, Fhx allergy reviewed in EMR. ROS as per chart and RN report Now in ICU, hemodynamically stable Video assessment done using teleICU camera, rest of exam as per RN Discussed with RN. Consultants: cynthia Alexander Hospital course: 08/13 - hypoxia / dyspnea , RIGHT effuison - s/p tap 2 L - >residual right basilar PTX 08/05 - to ICU with SVT - on cardizem A/P Acute resp failure , hypoxia - CXT with stable PTX this am - repeated cxr with increasing effusion - ? hemothorax ( on eliquis ) - will check CBC - add one dose of steroids IV - avoid NIPPV with ptx - follow on vapotherm AECOPD - add steroids IV x1 , cont prednisone - nebs - follow with elv HR SVT / ? afib - cards consulted - on cardisem gtt - give IV mag Chronic hypoxic resp failure/ COPD with severe bullous dz on CT - home o2 - monitor for signs of CO2 retemntion with see o2 flow PNA, suspected - recently Tx with ABX , re-stated abx on 08/13 on admission RIGHT plural effusion - s/p thoracentesis 08/13 RIGHT - 2 L - no clinical improvement reported - labs from thora suggest transudate - no Ph available - minimal effiusion seen gio CT 03/2021 and 06/2021 with stable masslike lesion - ? path pending , clinically not empyema RIGHT basal TX post thoracentesis - most likely etiology of trapped lung - to follow ECHO 2018 EF 60% , RVSP 35 mm stage IA non small cell lung carcinoma 2017 - s/p chemo and Rad TX ( with radiation pneumonitis reportedly Lines : left port (Central Line Necessity Reviewed) [place]: OG: Nutrition: po Analgesia: Anxiety/ delirium ativan VTE Prophylaxis: on eliquis Stress Ulcer Prophylaxis: none Glycemic Control: Plans in collaboration with bedside consultants and IM MDs. Discussed with RN to reach out if any questions or concerns A total of 35 minutes of critical care time was devoted to this patient today, required to treat and/or prevent further deterioration of critical care condi tion ( as above ) . SHANICE MONTES MD Aug 15, 2021 15:20
--- NOTE | 2021-08-15 15:49 | Consultation-Cardiology ---
HPI-Cardiology Cardiology Consultation Date of Consultation 08/15/21 Date of Admission Time Seen by Provider: 15:43 Indication: Atrial flutter HPI He was seen by Dr. Scar Marte request 72-year-old lady with history of COPD, was admitted yesterday with increasing shortness of breath and acute on chronic respiratory failure. She was treated recently for pneumonia. All work-up showed right-sided pleural effusion, underwent thoracentesis with small residual pneumothorax. She has been having shortness of breath which was worsening recently. This afternoon had an episode of atrial flutter with rapid ventricular response. Home Medications & Allergies Allergies: Coded Allergies: levofloxacin (Verified Allergy, Severe, TACHYCARDIA, 11/12/18) Penicillins (Verified Allergy, Unknown, FAMILY ALLERGY, 11/12/18) Uncoded Allergies: SURGICAL STEEL (Allergy, Intermediate, RASH, 05/10/18) Home Medication List Reviewed: Yes [id number] Hx Patient Social History Smoking Status: Former Smoker Type Used: Cigarettes Recent Hopitalizations: Yes Alcohol Use?: No Immunizations Up To Date Tetanus Booster (TDap): Unknown Date of Pneumonia Vaccine: Jul 26, 2018 Date of Influenza Vaccine: Jul 26, 2018 Past Medical History Discussed below Family Medical History Significant Family History: Cancer Review of Systems-General Review of Systems Constitutional: see HPI, malaise, weakness EENTM: no symptoms reported; No mouth pain, No nose congestion Respiratory: cough, dyspnea on exertion, orthopnea, short of breath Cardiovascular: see HPI; No chest pain; edema, palpitations Gastrointestinal: no symptoms reported; No abdominal pain, No constipation, No diarrhea, No nausea, No vomiting Genitourinary: no symptoms reported; No dysuria, No frequency, No hematuria : No Musculoskeletal: back pain Skin: no symptoms reported; No lesions, No rash Psychiatric/Neurological: Anxiety; Denies Headache, Denies Numbness, Denies Weakness Reviewed Test Results Reviewed Test Results Lab Laboratory Tests Test 08/14/21 16:50 08/14/21 20:46 08/15/21 06:02 08/15/21 11:21 Range/Units Glucometer 175 H 162 H 169 H 70-110 MG/DL White Blood Count 14.5 H 4.3-11.0 10^3/uL Red Blood Count 3.64 L 3.80-5.11 10^6/uL Hemoglobin 11.9 11.5-16.0 g/dL Hematocrit 36 35-52 % Mean Corpuscular Volume 100 H 80-99 fL Mean Corpuscular Hemoglobin 33 25-34 pg Mean Corpuscular Hemoglobin Concent 33 32-36 g/dL Red Cell Distribution Width 12.9 10.0-14.5 % Platelet Count 235 130-400 10^3/uL Mean Platelet Volume 10.8 9.0-12.2 fL Immature Granulocyte % (Auto) 9 % Neutrophils (%) (Auto) 73 42-75 % Lymphocytes (%) (Auto) 2 L 12-44 % Monocytes (%) (Auto) 16 H 0-12 % Eosinophils (%) (Auto) 0 0-10 % Basophils (%) (Auto) 0 0-10 % Neutrophils # (Auto) 10.6 H 1.8-7.8 10^3/uL Lymphocytes # (Auto) 0.3 L 1.0-4.0 10^3/uL Monocytes # (Auto) 2.3 H 0.0-1.0 10^3/uL Eosinophils # (Auto) 0.0 0.0-0.3 10^3/uL Basophils # (Auto) 0.0 0.0-0.1 10^3/uL Immature Granulocyte # (Auto) 1.2 H 0.0-0.1 10^3/uL Neutrophils % (Manual) 85 % Lymphocytes % (Manual) 2 % Monocytes % (Manual) 13 % Eosinophils % (Manual) 0 % Basophils % (Manual) 0 % Band Neutrophils 0 % Percent Immature Platelet Fraction 5.2 0.0-7.6 % Blood Morphology Comment NORMAL Sodium Level 143 135-145 MMOL/L Potassium Level 3.8 3.6-5.0 MMOL/L Chloride Level 104 98-107 MMOL/L Carbon Dioxide Level 25 21-32 MMOL/L Anion Gap 14 5-14 MMOL/L Blood Urea Nitrogen 27 H 7-18 MG/DL Creatinine 0.74 0.60-1.30 MG/DL Estimat Glomerular Filtration Rate 78 BUN/Creatinine Ratio 36 Glucose Level 148 H 70-105 MG/DL Calcium Level 8.7 8.5-10.1 MG/DL Corrected Calcium 9.1 8.5-10.1 MG/DL Total Bilirubin 0.4 0.1-1.0 MG/DL Aspartate Amino Transf (AST/SGOT) 31 5-34 U/L Alanine Aminotransferase (ALT/SGPT) 75 H 0-55 U/L Alkaline Phosphatase 58 40-136 U/L Total Protein 5.9 L 6.4-8.2 GM/DL Albumin 3.5 3.2-4.5 GM/DL Radiology Date of Exam:08/13/21 CHEST 1 VIEW, AP/PA ONLY Indication: COPD Portable chest shows normal heart size and vascularity. There is right lower lobe atelectasis with elevation of the right hemidiaphragm. An effusion may be present on the right. The right upper lobe is clear. The left lung is clear. There is no effusion on the left. IMPRESSION: Since the 07/10/2021 exam there has developed opacification of the right lower hemithorax consistent with atelectasis and elevation of the right hemidiaphragm and possible effusion. Recommend follow-up. Dictated by: Dictated on workstation # [id number] Dict: 08/14/21 07 Trans: 08/14/21 0849 [facility] [id number] Interpreted by: VALENCIA MAHMOOD MD Electronically signed by: VALENCIA MAHMOOD MD 08/14/21 0849 Date of Exam:08/14/21 US THORACENT ASP W [id number] Indication: Right pleural effusion Ultrasound images were obtained prior to right thoracentesis by Dr. Waddell. Ultrasound images demonstrate a large nonloculated right pleural effusion. Dr. Waddell subsequently performed thoracentesis, see his dictation for details. IMPRESSION: Ultrasound images demonstrate a large right pleural effusion without loculation as above. Dictated by: Dictated on workstation # [id number] Dict: 08/14/21 1308 Trans: 08/14/21 1416 [facility] [id number] Interpreted by: RUSSELL PENN MD Electronically signed by: RUSSELL PENN MD 08/14/21 1416 Physical Exam Physical Exam Vital Signs Vital Signs - First Documented 08/13/21 08/13/21 08/14/21 22:12 22:14 00:14 Temp 36.2 Pulse 96 Resp 22 B/P (MAP) 140/87 (104) Pulse Ox 94 O2 Delivery APAP O2 Flow Rate 30.00 FiO2 30 Capillary Refill : Less Than 3 Seconds Height, Weight, BMI Height: 5'5.00" Weight: 200lbs. 0.8oz. 90.685323ln; 30.00 BMI Method: General Appearance: Anxious, Chronically ill, Mild Distress Eyes: Bilateral Eye Normal Inspection, Bilateral Eye PERRL, Bilateral Eye EOMI HEENT: No Scleral Icterus (L), No Scleral Icterus (R) Neck: Normal Inspection, Non Tender Respiratory: Accessory Muscle Use, Decreased Breath Sounds (throughout but worse in right lower lobe), Respiratory Distress, Wheezing Cardiovascular: No Murmur, Tachycardia Neurologic/Psychiatric: Alert, Oriented x3 A/P-Cardiology Admission Diagnosis Acute respiratory failure Acute exacerbation of COPD Paroxysmal atrial flutter Tachycardia Assessment/Plan Acute on chronic respiratory failure, large pleural effusion status post thora centesis with residual pneumothorax, managed by general surgery and medical team Acute exacerbation of COPD, oxygen dependent, patient has been transferred to the intensive care unit and will be managed by the mosaic floor layer Paroxysmal atrial fibrillation/flutter, had an episode of atrial flutter with rapid ventricular response, she has been maintained on Cardizem and Eliquis as an outpatient. I gave her Cardizem bolus and started her on a drip and she converted back to sinus rhythm. Nonobstructive coronary artery disease per LHC done 07/10/21, Continue to monitor 2D Echocardiogram done 06/26/21 with moderate concentric hypertrophy, EF 65-70%. PA 35-40mmHg. Patient was tachycardic with hyperdynamic ventricle, overall suboptimal study Hypertension, continue to monitor blood pressure. No changes are recommended at this time History of GI bleed in the past, has refused endoscopy in the past. DM, management per PCP. Back pain, T6 fracture, had kyphoplasty by Dr. Wallace in July 2019. Continue to monitor History of lung cancer, followed by Dr. [place] History of acute psychosis, improved History of renal failure, improved, continue to monitor History of tobaccoism, stopped in 1993. Continue to monitor Hypothyroidism, management per PCP BMI 38, we discussed weight loss Mild nonobstructive carotid artery stenosis per carotid duplex done April 2021 CHAGO EISENBERG MD Aug 15, 2021 15:49
[2021-08-15] MEDS: MAGNESIUM 1 GM/100 ML IVPB 100 ML IV SCH ×2 (16:05→17:29)
[2021-08-15] MEDS: dilTIAZem DRIP PRE-MIX 125 ML IV SCH (16:26)
[2021-08-15] MEDS: MONTELUKAST 10 MG (SINGULAIR) TAB PO SCH (20:53)
[2021-08-15] MEDS: hydrOXYzine (VISTARIL/ATARAX) 25 MG capsule/tablet PO PRN (21:48)
[2021-08-15] MEDS ORDERED: meTOprolol TARTRATE 25 MG (LOPRESSOR) TABLET ONE (23:16)
[2021-08-15] MEDS ORDERED: morphine INJ 4 MG/ML 1 ML (VIAL/SYRINGE) ONE (23:16)
[2021-08-15] MEDS: morphine INJ 4 MG/ML 1 ML (VIAL/SYRINGE) IVP PRN (23:17)
[2021-08-15] MEDS: meTOprolol TARTRATE 25 MG (LOPRESSOR) TABLET PO SCH (23:17)
[2021-08-16] VITALS (24 sets, daily range): BP systolic 94–151; BP diastolic 60–105
[2021-08-16] MEDS ORDERED: DexMEDEtomidine 250 ML DRIP 250 ML IV ONE (00:36)
[2021-08-16] MEDS: DexMEDEtomidine 250 ML DRIP 250 ML IV SCH ×2 (00:40→09:14)
[2021-08-16] MEDS: dilTIAZem DRIP PRE-MIX 125 ML IV SCH ×2 (00:41→16:27)
[2021-08-16] MEDS: CEFEPIME INJECTION 1,000 MG in WATER (STERILE) FOR INJECTION 10 ML IV SCH ×4 (01:01→20:02)
[2021-08-16 05:00] LABS: BASOPHILS % (AUTO) 0 % (0-10); EOSINOPHILS % (AUTO) 0 % (0-10); HEMATOCRIT 36 % (35-52); HEMOGLOBIN 11.4 g/dL (11.5-16.0); LYMPHOCYTES # (AUTO) 0.1 10^3/uL (1.0-4.0); LYMPHOCYTES % (AUTO) 1 % (12-44); MEAN CORPUSCULAR HEMOGLOBIN 32 pg (25-34); MEAN CORPUSCULAR HGB CONC 32 g/dL (32-36); MEAN CORPUSCULAR VOLUME 100 fL (80-99); MEAN PLATELET VOLUME 10.7 fL (9.0-12.2); MONOCYTES # (AUTO) 0.4 10^3/uL (0.0-1.0); MONOCYTES % (AUTO) 4 % (0-12); NEUTROPHILS # (AUTO) 8.8 10^3/uL (1.8-7.8); NEUTROPHILS % (AUTO) 84 % (42-75); PLATELET COUNT 233 10^3/uL (130-400); WHITE BLOOD COUNT 10.4 10^3/uL (4.3-11.0)
[2021-08-16 05:16] LABS: ALBUMIN 3.6 GM/DL (3.2-4.5); POTASSIUM 4.2 MMOL/L (3.6-5.0)
[2021-08-16 05:18] LABS: TOTAL PROTEIN 5.9 GM/DL (6.4-8.2)
[2021-08-16 05:20] LABS: BILIRUBIN,TOTAL 0.4 MG/DL (0.1-1.0)
[2021-08-16 05:22] LABS: CREATININE SERUM 0.77 MG/DL (0.60-1.30)
--- NOTE | 2021-08-16 07:21 | Progress Note - Surgery ---
DAYDAY FIGUEROA MED STUDENT 08/16/21 0720: Subjective Date Seen by a Provider: Aug 16, 2021 Time Seen by a Provider: 06:40 Subjective/Events-last exam Patient seen at beside in ICU. Per nursing she was very anxious overnight and reporting subjective shortness of breath. Her heart rate was at a high of 210, her cardizem drip was increased to 5mg/hr, she was given ativan, po lopressor, and then started on precedex at 1.5 mcg/kg/hr her HR decreased after these interventions. At bedside her HR is in mid to high 60s, BP has been wnl except a soft pressure of 94/74, RR is between 20 and 30. She is currently on high flow NC at 35LPM at 60% o2, but is sleeping and snoring breathing through her mouth sating 94%. She is not easily awoken and quickly goes back to sleep making it not possible to obtain history from patient this morning. Review of Systems Patient is sleeping and unable to participate in interview. Objective Exam Vital Signs Date Time Temp Pulse Resp B/P (MAP) Pulse Ox O2 Delivery O2 Flow Rate FiO2 08/16/21 06:00 63 23 114/74 (87) 94 Vapotherm 35.00 60.00 08/16/21 05:00 66 22 94/74 (81) 95 Vapotherm 35.00 60.00 08/16/21 04:25 36.1 08/16/21 04:00 86 24 106/72 (83) 91 Vapotherm 35.00 60.00 08/16/21 04:00 Vapotherm 35.00 60 08/16/21 03:00 81 29 117/83 (94) 94 Vapotherm 35.00 60.00 08/16/21 02:00 89 24 116/72 (87) 94 Vapotherm 35.00 60.00 08/16/21 01:00 206 08/16/21 01:00 206 25 126/105 (112) 91 Vapotherm 35.00 60.00 08/16/21 00:40 210 134/102 08/16/21 00:23 Vapotherm 35.00 60.00 08/16/21 00:00 210 22 124/89 (101) 88 Vapotherm 35.00 50.00 08/16/21 00:00 Vapotherm 35.00 50 08/16/21 00:00 Vapotherm 35.00 50.00 08/15/21 23:45 Vapotherm 35.00 40.00 08/15/21 23:27 36.2 Vapotherm 40.00 40.00 08/15/21 23:20 Vapotherm 35.00 40.00 08/15/21 23:00 99 26 129/99 (109) 94 Vapotherm 30.00 40.00 08/15/21 22:00 109 22 146/86 (106) 92 Vapotherm 30.00 40.00 08/15/21 21:29 92 Vapotherm 30.00 40 08/15/21 21:00 105 19 107/81 (90) 94 Vapotherm 30.00 40.00 08/15/21 20:00 Vapotherm 30.00 40 08/15/21 20:00 96 24 139/63 (88) 94 Vapotherm 30.00 40.00 08/15/21 20:00 36.3 08/15/21 19:00 102 08/15/21 19:00 Vapotherm 30.00 40.00 08/15/21 19:00 102 27 123/81 (95) 95 Vapotherm 30.00 40.00 08/15/21 18:51 95 Vapotherm 25.00 60 08/15/21 18:00 101 31 134/64 (87) 94 Vapotherm 25.00 60.00 08/15/21 17:00 101 23 137/62 (87) 93 Vapotherm 25.00 60.00 08/15/21 16:31 Vapotherm 25.00 40 08/15/21 16:07 36.9 08/15/21 16:00 106 27 124/70 (88) 96 Vapotherm 25.00 60.00 08/15/21 15:00 116 24 166/120 (135) 95 Vapotherm 25.00 60.00 08/15/21 14:46 94 Vapotherm 25.00 60 08/15/21 14:00 118 16 161/111 (128) 92 Vapotherm 25.00 60.00 08/15/21 13:43 122 08/15/21 13:30 162/102 (122) 08/15/21 11:49 36.0 112 18 116/87 (97) 98 High Flow N/C 8.00 08/15/21 11:41 High Flow N/C 10.00 08/15/21 11:12 98 High Flow N/C 10.00 08/15/21 08:22 High Flow N/C 10.00 08/15/21 08:16 37.0 122 16 152/79 (103) 97 08/15/21 07:34 97 High Flow N/C 10.00 I & O 08/16/21 07:00 Intake Total 320 ml Output Total 560 ml Balance -240 ml Capillary Refill : Less Than 3 Seconds General Appearance: Chronically ill, Other (sleeping comfortably) HEENT: No Scleral Icterus (L), No Scleral Icterus (R) Neck: Normal Inspection, Non Tender Respiratory: Accessory Muscle Use, Decreased Breath Sounds (throughout but worse in right lower lobe, improved relative to yesterday), Wheezing (throughout, but improving) Cardiovascular: No Murmur, Tachycardia Gastrointestinal: non tender, soft Results Lab Laboratory Tests 08/15/21 11:21: Glucometer 169H 08/15/21 16:07: Glucometer 187H 08/15/21 20:44: Glucometer 219H 08/16/21 04:42: White Blood Count 10.4, Red Blood Count 3.54L, Hemoglobin 11.4L, Hematocrit 36, Mean Corpuscular Volume 100H, Mean Corpuscular Hemoglobin 32, Mean Corpuscular Hemoglobin Concent 32, Red Cell Distribution Width 12.9, Platelet Count 233, Mean Platelet Volume 10.7, Immature Granulocyte % (Auto) 10, Neutrophils (%) (Auto) 84H, Lymphocytes (%) (Auto) 1L, Monocytes (%) (Auto) 4, Eosinophils (%) (Auto) 0, Basophils (%) (Auto) 0, Neutrophils # (Auto) 8.8H, Lymphocytes # (Auto) 0.1L, Monocytes # (Auto) 0.4, Eosinophils # (Auto) 0.0, Basophils # (Auto) 0.0, Immature Granulocyte # (Auto) 1.0H, Sodium Level 141, Potassium Level 4.2, Chloride Level 103, Carbon Dioxide Level 21, Anion Gap 17H, Blood Urea Nitrogen 26H, Creatinine 0.77, Estimat Glomerular Filtration Rate 74, BUN/Creatinine Ratio 34, Glucose Level 241H, Calcium Level 8.0L, Corrected Calcium 8.3L, Total Bilirubin 0.4, Aspartate Amino Transf (AST/SGOT) 50H, Alanine Aminotransferase (ALT/SGPT) 114H, Alkaline Phosphatase 72, Total Protein 5.9L, Albumin 3.6 Microbiology 08/14/21 Gram Stain - Final, Resulted 08/14/21 Anaerobic Culture, Resulted Pending 08/14/21 Body Fluid Culture - Preliminary, Resulted No growth Assessment/Plan Assessment/Plan Assessment/Plan Acute on Chronic Respiratory Failure R sided pleural effusion s/p thoracentisis pneumothorax - improving SOB COPD History of Lung Cancer s/p chemorads follows with Dr. Jin anxiety Patients o2 saturations have been within normal limits with current interventions, but continues to have subjective shortness of breath, i believe this is likely due to anxiety versus gross pathology, she is being followed by medicine, will continue to follow for improvement of pneumothorax, but have no surgical intervention planned at this time. MANJIT WADDELL DO 08/16/21 1514: Subjective Time Seen by a Provider: 13:05 Subjective/Events-last exam Pt seen and examined, she is sleepy but arousable. She is on vapotherm and O2 saturation is 100%. When I wake her up all she says is she wants to go home. Review of Systems General: Fatigue Pulmonary: Dyspnea; No Pleuritic Chest Pain Cardiovascular: No: Chest Pain, Palpitations Gastrointestinal: No: Nausea, Vomiting, Abdominal Pain Objective Exam General Appearance: Chronically ill, Obese, Other (sleeping comfortably) HEENT: No Scleral Icterus (L), No Scleral Icterus (R) Respiratory: Accessory Muscle Use, Decreased Breath Sounds (throughout but worse in right lower lobe, improved relative to yesterday), Wheezing (throughout, but improving) Gastrointestinal: non tender, soft, no organomegaly Assessment/Plan Assessment/Plan Assessment/Plan Acute on Chronic Respiratory Failure R sided pleural effusion s/p thoracentisis pneumothorax - improving SOB COPD History of Lung Cancer s/p chemorads follows with Dr. Jin anxiety Patients o2 saturations have been within normal limits with current interventions, but continues to have subjective shortness of breath, i believe this is likely due to anxiety versus gross pathology, she is being followed by medicine, will continue to follow for improvement of pneumothorax, but have no surgical intervention planned at this time. Supervisory-Addendum Brief Verification & Attestation Participated in pt care: history, MDM, physical Personally performed: exam, history, MDM, supervision of care Care discussed with: Medical Student Procedures: n/a Verification and Attestation of Medical Student E/M Service A medical student performed and documented this service. I then reviewed and verified all information documented by the medical student and made modifications to such information, when appropriate. I personally performed a physical exam, medical decision making and then discussed any differences between the notes and made revisions as necessary to create one note. Manjit Waddell , 08/16/21 , 15:13 DAYDAY FIGUEROA MED STUDENT Aug 16, 2021 07:20 MANJIT WADDELL DO Aug 16, 2021 15:14
[2021-08-16] MEDS: RT-ALBUTEROL/IPRATROPIUM 3 ML (DUONEB) VIAL INH SCH ×5 (07:24→21:37)
[2021-08-16] MEDS: RT--FLUTICASONE/SALMETEROL 232-14 (AIRDUO RespiCLICK) IH SCH ×2 (07:27→18:24)
[2021-08-16] MEDS: APIXABAN 5 MG (ELIQUIS) TABLET PO SCH ×3 (08:00→19:42)
[2021-08-16] MEDS: dilTIAZem120 MG (CARDIZEM CD) CAP PO SCH ×2 (08:00→08:35)
[2021-08-16] MEDS: predniSONE 20 MG TAB PO SCH ×2 (08:00→08:35)
[2021-08-16] MEDS: meTOprolol TARTRATE 25 MG (LOPRESSOR) TABLET PO SCH ×3 (08:01→20:04)
--- NOTE | 2021-08-16 09:15 | Diagnostic Imaging Report ---
Clinical indication: Patient with hypoxia and effusion. Exam: Portable chest x-ray upright view. Comparisons: Chest x-ray dated 08/15/2021. CT scan of the chest, abdomen and pelvis dated . Findings: Emphysematous lung disease is again seen. There is persistent consolidation right lung base which may be related to right lung volume loss. There is concern for also persistent right basilar pneumothorax. There is atelectasis in the left lung base seen. Pulmonary vasculature and cardiac silhouette are within normal limits. Okvian-c-Yvak seen overlying left chest. The remainder of this exam shows no significant interval change compared to the prior study of comparison. IMPRESSION: 1: There is concern for possible persistent right basilar pneumothorax. CT scan of the chest is suggested for further evaluation. 2: There is persisting consolidation right lung base which may represent atelectasis. 3: Emphysematous lung disease. Dictated by: Dictated on workstation # [id number]
--- NOTE | 2021-08-16 09:20 | Tele-ICU Progress Note ---
Subjective Date Seen by a Provider: Aug 16, 2021 Time Seen by a Provider: 09:20 Sepsis Event Evaluation Height, Weight, BMI Height: 5'5.00" Weight: 200lbs. 0.8oz. 90.754573dn; 30.00 BMI Method: Exam Exam Patient acknowledged, consented, and participated in this virtual visit which was conducted using real time audio/video Vital Signs Date Time Temp Pulse Resp B/P (MAP) Pulse Ox O2 Delivery O2 Flow Rate FiO2 08/16/21 09:14 75 111/87 08/16/21 09:00 75 22 111/87 (95) 94 Vapotherm 35.00 60.00 08/16/21 08:37 Vapotherm 35.00 60 08/16/21 08:00 75 28 115/71 (86) 95 Vapotherm 35.00 60.00 08/16/21 07:45 35.9 08/16/21 07:24 95 Vapotherm 35.00 60 08/16/21 07:00 66 22 114/60 (78) 95 Vapotherm 35.00 60.00 08/16/21 07:00 66 08/16/21 06:00 63 23 114/74 (87) 94 Vapotherm 35.00 60.00 08/16/21 05:00 66 22 94/74 (81) 95 Vapotherm 35.00 60.00 08/16/21 04:25 36.1 08/16/21 04:00 86 24 106/72 (83) 91 Vapotherm 35.00 60.00 08/16/21 04:00 Vapotherm 35.00 60 08/16/21 03:00 81 29 117/83 (94) 94 Vapotherm 35.00 60.00 08/16/21 02:00 89 24 116/72 (87) 94 Vapotherm 35.00 60.00 08/16/21 01:00 206 08/16/21 01:00 206 25 126/105 (112) 91 Vapotherm 35.00 60.00 08/16/21 00:40 210 134/102 08/16/21 00:23 Vapotherm 35.00 60.00 08/16/21 00:00 210 22 124/89 (101) 88 Vapotherm 35.00 50.00 08/16/21 00:00 Vapotherm 35.00 50 08/16/21 00:00 Vapotherm 35.00 50.00 08/15/21 23:45 Vapotherm 35.00 40.00 08/15/21 23:27 36.2 Vapotherm 40.00 40.00 08/15/21 23:20 Vapotherm 35.00 40.00 08/15/21 23:00 99 26 129/99 (109) 94 Vapotherm 30.00 40.00 08/15/21 22:00 109 22 146/86 (106) 92 Vapotherm 30.00 40.00 08/15/21 21:29 92 Vapotherm 30.00 40 08/15/21 21:00 105 19 107/81 (90) 94 Vapotherm 30.00 40.00 08/15/21 20:00 Vapotherm 30.00 40 08/15/21 20:00 96 24 139/63 (88) 94 Vapotherm 30.00 40.00 08/15/21 20:00 36.3 08/15/21 19:00 102 08/15/21 19:00 Vapotherm 30.00 40.00 08/15/21 19:00 102 27 123/81 (95) 95 Vapotherm 30.00 40.00 08/15/21 18:51 95 Vapotherm 25.00 60 08/15/21 18:00 101 31 134/64 (87) 94 Vapotherm 25.00 60.00 08/15/21 17:00 101 23 137/62 (87) 93 Vapotherm 25.00 60.00 08/15/21 16:31 Vapotherm 25.00 40 08/15/21 16:07 36.9 08/15/21 16:00 106 27 124/70 (88) 96 Vapotherm 25.00 60.00 08/15/21 15:00 116 24 166/120 (135) 95 Vapotherm 25.00 60.00 08/15/21 14:46 94 Vapotherm 25.00 60 08/15/21 14:00 118 16 161/111 (128) 92 Vapotherm 25.00 60.00 08/15/21 13:43 122 08/15/21 13:30 162/102 (122) 08/15/21 11:49 36.0 112 18 116/87 (97) 98 High Flow N/C 8.00 08/15/21 11:41 High Flow N/C 10.00 08/15/21 11:12 98 High Flow N/C 10.00 I & O 08/16/21 07:00 Intake Total 320 ml Output Total 560 ml Balance -240 ml Height & Weight Height: 5'5.00" Weight: 200lbs. 0.8oz. 90.786820fo; 30.00 BMI Method: General Appearance: Chronically ill, Other (sleeping comfortably) HEENT: No Scleral Icterus (L), No Scleral Icterus (R) Neck: Normal Inspection, Non Tender Respiratory: Accessory Muscle Use, Decreased Breath Sounds (throughout but worse in right lower lobe, improved relative to yesterday), Wheezing (throughout, but improving) Cardiovascular: No Murmur, Tachycardia Capillary Refill: Less Than 3 Seconds Gastrointestinal: non tender, soft Results Lab Laboratory Tests 08/15/21 06:02 08/16/21 04:42 Assessment/Plan Assessment/Plan (Tele-ICU Physician , Progress Note ) Available chart/ vitals / labs / Images reviewed Video assessment done using teleICU camera, rest of exam as per RN Discussed with RN , EXAM PER RN Events overnight : placed on precedex , had increased cardizem for HR 200 Afebrile I/O = neg 300 Drips: cardizem ftt 5 Pressors: , hemodynamically stable Consultants: cynthia Alexander Hospital course: 08/13 - hypoxia / dyspnea , RIGHT effuison - s/p tap 2 L - >residual right basilar PTX 08/05 - to ICU with SVT - on cardizem, PTX stable 08/16 - Vapotherm 35L 60% A/P Acute resp failure , hypoxia -Vapotherm 35L 60% - CXT with stable PTX , pending this am - steroids IV - avoid NIPPV with ptx - follow on vapotherm Letargy , new , significant - check ABG , - as per RN - neuro exam nonfocal- postpone CTH - to wean off precedex - WILL NEED TO CHANGE MEDS TO IV IF NOT ABLE TO TAKE PO - beta blockers, eliquis and prednisone AECOPD - add steroids IV x1 , cont prednisone - nebs - follow with elv HR PAF, with episode RVR 08/15 - back to sinus - cards consulted - on cardisem gtt - give IV mag Chronic hypoxic resp failure/ COPD with severe bullous dz on CT - home o2 - monitor for signs of CO2 retemntion with see o2 flow PNA, suspected - recently Tx with ABX , re-stated abx on 08/13 on admission RIGHT plural effusion - s/p thoracentesis 08/13 RIGHT - 2 L - no clinical improvement reported - labs from thora suggest exudate - no Ph available - minimal effiusion seen gio CT 03/2021 and 06/2021 with stable masslike lesion - ? path pending, clinically not empyema - sligthly increasing effusion - not hemothorax ( CBC stable on eliquis ) RIGHT basal TX post thoracentesis - most likely etiology of trapped lung - to follow Nonobstructive CAD per [facility] done 07/10/21, ECHO 06/26/21 EF 60% , RVSP 35 mm stage IA non small cell lung carcinoma 2018 - s/p chemo and Rad TX ( with radiation pneumonitis reportedly DM - starting ISS Lines : left port to try to acsess (Central Line Necessity Reviewed) [place]: OG: Nutrition: po Analgesia: Anxiety/ delirium ativan VTE Prophylaxis: on eliquis Stress Ulcer Prophylaxis: none Glycemic Control: Plans in collaboration with bedside consultants and IM MDs. Discussed with RN to reach out if any questions or concerns A total of 35 minutes of critical care time was devoted to this patient today, required to treat and/or prevent further deterioration of critical care condition ( as above ) . SHANICE MONTES MD Aug 16, 2021 09:20
[2021-08-16 09:43] LABS: ABG BASE EXCESS 1.8 MMOL/L (-2.5-2.5); ABG OXYGEN SATURATION 94 % (94-100); ABG PCO2 43 MMHG (35-45); ABG PO2 65 MMHG (79-93); ABG TCO2 27.7 MMOL/L (21.0-31.0)
[2021-08-16 09:45] LABS: INSPIRED O2 60%; VENTILATOR NO
[2021-08-16] MEDS ORDERED: FUROSEMIDE 40 MG/4 ML INJ (LASIX) IVP NR (10:30)
[2021-08-16] MEDS ORDERED: inSUlin ASPART (NovoLOG) 1 UNIT/0.01 ML (CHARGE PER UNIT) SC SCH (11:00)
--- NOTE | 2021-08-16 11:42 | Diagnostic Imaging Report ---
PROCEDURE: CT head without contrast. TECHNIQUE: Multiple contiguous axial images were obtained through the brain without the use of intravenous contrast. Auto Exposure Controls were utilized during the CT exam to meet ALARA standards for radiation dose reduction. INDICATION: 71-year-old ICU patient, sudden onset confusion. CORRELATION: 07/30/2019 FINDINGS: There are diffuse atrophic changes with prominence of the ventricles and sulci, age appropriate. No abnormal areas of decreased attenuation to suggest acute ischemic disease. There is no midline shift or mass effect. No evidence for acute intracranial hemorrhage or abnormal extra-axial fluid collection. Bony calvarium is intact. Paranasal sinuses are clear. Mastoid air cells also appear clear. IMPRESSION: 1. No CT evidence for acute intracranial abnormality. Dictated by: Dictated on workstation # [id number]
--- NOTE | 2021-08-16 12:12 | Cardiology Progress Note ---
Subjective Date Seen by Provider: Aug 16, 2021 Time Seen by Provider: 12:10 Subjective/Events-last exam Patient was seen and evaluated, she is laying down unresponsive, she was on Precedex. It was discontinued and she went to CAT scan on returning to her room she opens her eyes. Not following commands yet. Objective-Cardiology Exam Last Set of Vital Signs Vital Signs 08/16/21 08/16/21 08/16/21 07:45 10: 11:00 Temp 35.9 Pulse 87 Resp 20 B/P (MAP) 114/92 (99) Pulse Ox 95 O2 Delivery Vapotherm O2 Flow Rate 35.00 60.00 FiO2 60 I&O Intake and Output 08/16/21 00:00 Intake Total 210 ml Output Total 600 ml Balance -390 ml Intake Oral 100 ml IV Total 110 ml Output Urine Total 600 ml General: Moderate Distress (belly breathing at rest with conversational dyspnea) Lungs: Clear to Auscultation Heart: Regular Rate, Normal S1, Normal S2, No Murmurs Abdomen: Normal Bowel Sounds, Soft, No Tenderness, No Masses Extremities: Other (2+ pitting edema) Neuro: Cranial Nerves 3-12 NL Results Lab Laboratory Tests 08/16/21 04:42 A/P-Cardiology Admission Diagnosis Acute respiratory failure Acute exacerbation of COPD Paroxysmal atrial flutter Tachycardia Assessment/Plan Acute on chronic respiratory failure, large pleural effusion status post thoracentesis with residual pneumothorax, managed by general surgery and medical team Acute exacerbation of COPD, oxygen dependent, patient has been transferred to the intensive care unit and will be managed by the graphic arts instructor Paroxysmal atrial fibrillation/flutter, had an episode of atrial flutter with rapid ventricular response, converted to sinus rhythm and doing better, heart rate is better. Continue to monitor Change in mental status, combination of hypoxemia and sedation. Currently off Precedex. Oxygen saturation appear to be acceptable. CT scan of the head did not show any acute abnormality. Managed by primary care team Nonobstructive coronary artery disease per [facility] done 07/10/21, Continue to monitor 2D Echocardiogram done 06/26/21 with moderate concentric hypertrophy, EF 65-70%. PA 35-40mmHg. Patient was tachycardic with hyperdynamic ventricle, overall suboptimal study Hypertension, continue to monitor blood pressure. No changes are recommended at this time History of GI bleed in the past, has refused endoscopy in the past. DM, management per PCP. Back pain, T6 fracture, had kyphoplasty by Dr. Wallace in July 2019. Continue to monitor History of lung cancer, followed by Dr. [place] History of acute psychosis, improved History of renal failure, improved, continue to monitor History of tobaccoism, stopped in 1993. Continue to monitor Hypothyroidism, management per PCP BMI 38, we discussed weight loss Mild nonobstructive carotid artery stenosis per carotid duplex done April 2021 CHAGO EISENBERG MD Aug 16, 2021 12:12
[2021-08-16] MEDS: inSUlin ASPART (NovoLOG) 1 UNIT/0.01 ML (CHARGE PER UNIT) SC SCH ×3 (12:52→20:15)
--- NOTE | 2021-08-16 12:55 | Progress Note ---
Subjective Subjective/Events-last exam Patient hard to arouse this AM. She denies any pain or discomfort. Review of Systems Pulmonary: No Dyspnea, No Cough Cardiovascular: No: Chest Pain, Palpitations Gastrointestinal: No: Nausea, Vomiting, Abdominal Pain, Diarrhea, Constipation Neurological: Weakness, Incoordination, Change in speech, Confusion Objective Exam Last Set of Vital Signs Vital Signs Date Time Temp Pulse Resp B/P (MAP) Pulse Ox O2 Delivery O2 Flow Rate FiO2 08/16/21 12:48 Vapotherm 35.00 60 08/16/21 12:00 81 20 127/81 (96) 96 08/16/21 07:45 35.9 Capillary Refill : Less Than 3 Seconds I&O Intake and Output 08/16/21 00:00 Intake Total 210 ml Output Total 600 ml Balance -390 ml Intake Oral 100 ml IV Total 110 ml Output Urine Total 600 ml General: Alert, Moderate Distress Lungs: Other (diminish) Heart: Regular Rate, No Murmurs Abdomen: Normal Bowel Sounds, Soft, Other Extremities: Other (2+ pitting edema) Results/Procedures Lab Laboratory Tests 08/15/21 16:07: Glucometer 187H 08/15/21 20:44: Glucometer 219H 08/16/21 04:42: White Blood Count 10.4, Red Blood Count 3.54L, Hemoglobin 11.4L, Hematocrit 36, Mean Corpuscular Volume 100H, Mean Corpuscular Hemoglobin 32, Mean Corpuscular Hemoglobin Concent 32, Red Cell Distribution Width 12.9, Platelet Count 233, Mean Platelet Volume 10.7, Immature Granulocyte % (Auto) 10, Neutrophils (%) (Auto) 84H, Lymphocytes (%) (Auto) 1L, Monocytes (%) (Auto) 4, Eosinophils (%) (Auto) 0, Basophils (%) (Auto) 0, Neutrophils # (Auto) 8.8H, Lymphocytes # (Auto) 0.1L, Monocytes # (Auto) 0.4, Eosinophils # (Auto) 0.0, Basophils # (Auto ) 0.0, Immature Granulocyte # (Auto) 1.0H, Sodium Level 141, Potassium Level 4.2, Chloride Level 103, Carbon Dioxide Level 21, Anion Gap 17H, Blood Urea Nitrogen 26H, Creatinine 0.77, Estimat Glomerular Filtration Rate 74, BUN/Creatinine Ratio 34, Glucose Level 241H, Calcium Level 8.0L, Corrected Calcium 8.3L, Total Bilirubin 0.4, Aspartate Amino Transf (AST/SGOT) 50H, Alanine Aminotransferase (ALT/SGPT) 114H, Alkaline Phosphatase 72, Total Protein 5.9L, Albumin 3.6 08/16/21 09:35: Blood Gas Puncture Site RIGHT RADIAL, Blood Gas Patient Temperature 36.0, Arterial Blood pH 7.40, Arterial Blood Partial Pressure CO2 43, Arterial Blood Partial Pressure O2 65L, Arterial Blood HCO3 26, Arterial Blood Total CO2 27.7, Arterial Blood Oxygen Saturation 94, Arterial Blood Base Excess 1.8, Radames Test NA, Blood Gas Ventilator Setting NO, Blood Gas Inspired Oxygen 60% 08/16/21 12:46: Glucometer 247H Microbiology 08/14/21 Gram Stain - Final, Resulted 08/14/21 Anaerobic Culture - Preliminary, Resulted No anaerobes isolated 08/14/21 Body Fluid Culture - Preliminary, Resulted No growth Radiology Date of Exam:08/13/21 CHEST 1 VIEW, AP/PA ONLY Indication: COPD Portable chest shows normal heart size and vascularity. There is right lower lobe atelectasis with elevation of the right hemidiaphragm. An effusion may be present on the right. The right upper lobe is clear. The left lung is clear. There is no effusion on the left. IMPRESSION: Since the 07/10/2021 exam there has developed opacification of the right lower hemithorax consistent with atelectasis and elevation of the right hemidiaphragm and possible effusion. Recommend follow-up. Dictated by: Dictated on workstation # [id number] Dict: 08/14/21 0723 Trans: 08/14/21 0849 [facility] [id number] Interpreted by: VALENCIA MAHMOOD MD Electronically signed by: VALENCIA MAHMOOD MD 08/14/21 0849 Date of Exam:08/14/21 US THORACENT ASP W [id number] Indication: Right pleural effusion Ultrasound images were obtained prior to right thoracentesis by Dr. Waddell. Ultrasound images demonstrate a large nonloculated right pleural effusion. Dr. Waddell subsequently performed thoracentesis, see his dictation for details. IMPRESSION: Ultrasound images demonstrate a large right pleural effusion without loculation as above. Dictated by: Dictated on workstation # [id number] Dict: 08/14/21 1308 Trans: 08/14/21 1416 [facility] [id number] Interpreted by: RUSSELL PENN MD Electronically signed by: RUSSELL PENN MD 08/14/21 1416 Assessment/Plan Assessment/Plan (1) Altered mental status Status: Acute Assessment & Plan: 08/16: CT ordered this AM due to change in arousal Qualifiers: Qualified Codes: R41.82 - Altered mental status, unspecified (2) Acute and chronic respiratory failure with hypoxia Status: Acute Assessment & Plan: - MAT protocol, steroids, will titrate oxygen as tolerated, Dr Waddell consulted 2/2 large pleural effusion 08/15: CXR continues to improve, reviewed images, will continue to titrate oxygen as tolerated, baseline oxygen 6-8 L at home, added antibiotics today / continued increase work of breathing 08/16: Patient continues to belly breath, ABG looks good, satting 95% on vapotherm (3) Pleural effusion on right Status: Acute Assessment & Plan: - Drained by Dr Waddell (4) Elevated LFTs Status: Acute Assessment & Plan: - Will continue to monitor (5) Atrial fibrillation Status: Chronic Assessment & Plan: - Rate controlled on medication, OAC, will continue to monitor 08/16: Patient had episode of RVR, cardiology consulted Qualifiers: Qualified Codes: I48.0 - Paroxysmal atrial fibrillation (6) HTN (hypertension) Status: Chronic Qualifiers: Qualified Codes: I10 - Essential (primary) hypertension (7) HLD (hyperlipidemia) Status: Chronic Qualifiers: Qualified Codes: E78.5 - Hyperlipidemia, unspecified (8) CAD (coronary artery disease) Status: Chronic Qualifiers: Qualified Codes: I25.10 - Atherosclerotic heart disease of [place] coronary artery without angina pectoris (9) DVT prophylaxis Status: Acute Assessment & Plan: - OAC TRACY GREGG MD Aug 16, 2021 12:55
[2021-08-16] MEDS ORDERED: ENOXAPARIN 40 MG/0.4 ML (LOVENOX) SYR SQ SCH (15:30)
[2021-08-16] MEDS: methylPREDNISolone 40 MG/ML (Solu-MEDROL) VIAL IV SCH (20:02)
[2021-08-16] MEDS: morphine INJ 4 MG/ML 1 ML (VIAL/SYRINGE) IVP PRN (20:03)
[2021-08-16] MEDS: MONTELUKAST 10 MG (SINGULAIR) TAB PO SCH (20:03)
[2021-08-16] MEDS: hydrOXYzine (VISTARIL/ATARAX) 25 MG capsule/tablet PO PRN (20:04)
[2021-08-17] VITALS (24 sets, daily range): BP systolic 111–178; BP diastolic 62–93
[2021-08-17] MEDS: morphine INJ 4 MG/ML 1 ML (VIAL/SYRINGE) IVP PRN ×5 (00:12→22:30)
[2021-08-17] MEDS: CEFEPIME INJECTION 1,000 MG in WATER (STERILE) FOR INJECTION 10 ML IV SCH ×4 (01:29→20:26)
[2021-08-17] MEDS: RT-ALBUTEROL/IPRATROPIUM 3 ML (DUONEB) VIAL INH SCH ×6 (02:07→21:22)
[2021-08-17 04:37] LABS: BASOPHILS % (AUTO) 0 % (0-10); EOSINOPHILS # (AUTO) 0.1 10^3/uL (0.0-0.3); EOSINOPHILS % (AUTO) 1 % (0-10); HEMATOCRIT 36 % (35-52); HEMOGLOBIN 11.5 g/dL (11.5-16.0); LYMPHOCYTES # (AUTO) 0.1 10^3/uL (1.0-4.0); LYMPHOCYTES % (AUTO) 1 % (12-44); MEAN CORPUSCULAR HEMOGLOBIN 33 pg (25-34); MEAN CORPUSCULAR HGB CONC 32 g/dL (32-36); MEAN CORPUSCULAR VOLUME 101 fL (80-99); MEAN PLATELET VOLUME 10.6 fL (9.0-12.2); MONOCYTES # (AUTO) 0.6 10^3/uL (0.0-1.0); MONOCYTES % (AUTO) 4 % (0-12); NEUTROPHILS # (AUTO) 11.8 10^3/uL (1.8-7.8); NEUTROPHILS % (AUTO) 85 % (42-75); PLATELET COUNT 275 10^3/uL (130-400); WHITE BLOOD COUNT 13.8 10^3/uL (4.3-11.0)
[2021-08-17 04:48] LABS: ALBUMIN 3.7 GM/DL (3.2-4.5)
[2021-08-17 04:49] LABS: CALCIUM 7.8 MG/DL (8.5-10.1)
[2021-08-17 04:52] LABS: BILIRUBIN,TOTAL 0.4 MG/DL (0.1-1.0)
[2021-08-17 04:54] LABS: CREATININE SERUM 0.89 MG/DL (0.60-1.30)
[2021-08-17 04:56] LABS: MAGNESIUM 2.5 MG/DL (1.6-2.4)
[2021-08-17] MEDS: inSUlin ASPART (NovoLOG) 1 UNIT/0.01 ML (CHARGE PER UNIT) SC SCH ×4 (05:21→21:43)
[2021-08-17] MEDS: RT--FLUTICASONE/SALMETEROL 232-14 (AIRDUO RespiCLICK) IH SCH ×2 (06:53→18:12)
--- NOTE | 2021-08-17 08:01 | Progress Note - Surgery ---
KEVIN CHANDLER 08/17/21 0801: Subjective Date Seen by a Provider: Aug 17, 2021 Time Seen by a Provider: 07:40 Subjective/Events-last exam PT was awake in ICU bed this AM. She is s/p Thoracentesis with US guidance for a R side pleura effusion. The patient complains of difficulty catching her breath. She reports " huffing and puffing" and difficulty having a conversation due to her breathing difficulty. She reports complaints of coughing. Review of Systems General: No Chills; Other (no dizziness ) HEENT: No Visual Changes, No Ear Pain Pulmonary: Dyspnea, Cough Cardiovascular: Chest Pain; No: Palpitations Gastrointestinal: No: Nausea, Vomiting, Abdominal Pain Genitourinary: No Dysuria, No Hematuria Musculoskeletal: back pain (worse with movement on right side); No: neck pain Neurological: Other (shaking of both hands ); No: Confusion Objective Exam Vital Signs Date Time Temp Pulse Resp B/P (MAP) Pulse Ox O2 Delivery O2 Flow Rate FiO2 08/17/21 07:00 104 24 148/76 (100) 91 Vapotherm 35.00 70.00 08/17/21 07:00 103 08/17/21 06:53 91 Vapotherm 35.00 70 08/17/21 06:00 91 24 140/91 (107) 94 Vapotherm 35.00 70.00 08/17/21 05:12 Vapotherm 35.00 70.00 08/17/21 05:00 90 24 129/71 (90) 93 Vapotherm 35.00 60.00 08/17/21 04:45 Vapotherm 35.00 60.00 08/17/21 04:22 Vapotherm 35.00 70.00 08/17/21 04:15 36.7 Vapotherm 35.00 80.00 08/17/21 04:11 Vapotherm 35.00 90.00 08/17/21 04:00 Vapotherm 35.00 100 08/17/21 04:00 99 14 111/76 (88) 92 Vapotherm 35.00 100.00 08/17/21 03:00 Vapotherm 35.00 100.00 08/17/21 03:00 95 26 155/82 (106) 92 Vapotherm 35.00 100.00 08/17/21 02:07 93 Vapotherm 35.00 60 08/17/21 02:00 84 29 132/78 (96) 94 Vapotherm 35.00 60.00 08/17/21 01:00 84 08/17/21 01:00 80 28 147/76 (99) 94 Vapotherm 35.00 60.00 08/17/21 00:00 87 22 138/85 (102) 94 Vapotherm 35.00 60.00 08/17/21 00:00 Vapotherm 35.00 60 08/16/21 23:24 35.9 08/16/21 23:00 93 23 136/90 (105) 94 Vapotherm 35.00 60.00 08/16/21 22:00 93 19 146/98 (114) 93 Vapotherm 35.00 60.00 08/16/21 21:37 92 Vapotherm 35.00 60 08/16/21 21:00 93 23 150/91 (110) 92 Vapotherm 35.00 60.00 08/16/21 20:01 35.7 08/16/21 20:00 90 17 140/89 (106) 95 Vapotherm 35.00 60.00 08/16/21 20:00 Vapotherm 35.00 60 08/16/21 19:00 88 14 138/62 (87) 95 Vapotherm 35.00 60.00 08/16/21 19:00 90 08/16/21 18:25 98 Vapotherm 35.00 60 08/16/21 18:00 84 24 151/69 (96) 100 Vapotherm 35.00 60.00 08/16/21 17:00 81 33 140/66 (90) 99 Vapotherm 35.00 60.00 08/16/21 16:33 Vapotherm 35.00 60 08/16/21 16:23 35.8 08/16/21 16:00 86 29 133/95 (108) 97 Vapotherm 35.00 60.00 08/16/21 15:00 75 22 134/83 (100) 96 Vapotherm 35.00 60.00 08/16/21 14:33 95 Vapotherm 35.00 60 08/16/21 14:00 90 18 126/72 (90) 96 Vapotherm 35.00 60.00 08/16/21 13:00 87 22 139/82 (101) 96 Vapotherm 35.00 60.00 08/16/21 12:52 88 08/16/21 12:48 Vapotherm 35.00 60 08/16/21 12:00 81 20 127/81 (96) 96 Vapotherm 35.00 60.00 08/16/21 11:00 87 20 114/92 (99) 95 Vapotherm 35.00 60.00 08/16/21 10:29 95 Vapotherm 35.00 60 08/16/21 10:00 77 21 109/66 (80) 95 Vapotherm 35.00 60.00 08/16/21 09:14 75 111/87 08/16/21 09:00 75 22 111/87 (95) 94 Vapotherm 35.00 60.00 08/16/21 08:37 Vapotherm 35.00 60 08/16/21 08:00 75 28 115/71 (86) 95 Vapotherm 35.00 60.00 I & O 08/17/21 07:00 Intake Total 1480 ml Output Total 500 ml Balance 980 ml Capillary Refill : Less Than 3 Seconds General Appearance: No Apparent Distress, Chronically ill, Obese HEENT: PERRL/EOMI; No Scleral Icterus (L), No Scleral Icterus (R) Neck: Full Range of Motion, Non Tender, Supple Respiratory: Chest Non Tender, Accessory Muscle Use, Decreased Breath Sounds (throughout but worse in right lower lobe), Wheezing (throughout anterior and posterior posts ) Cardiovascular: No Murmur, Tachycardia Peripheral Pulses: 2+ Radial Pulses (R), 2+ Radial Pulses (L) Gastrointestinal: non tender, soft, no organomegaly Extremity: Pedal Edema (3+ pitting bilaterally ) Neurologic/Psychiatric: Alert, Oriented x3, Normal Mood/Affect Skin: Warm/Dry Lymphatic: No Adenopathy (cervical ) Results Lab Laboratory Tests 08/16/21 09:35: Blood Gas Puncture Site RIGHT RADIAL, Blood Gas Patient Temperature 36.0, Arterial Blood pH 7.40, Arterial Blood Partial Pressure CO2 43, Arterial Blood Partial Pressure O2 65L, Arterial Blood HCO3 26, Arterial Blood Total CO2 27.7, Arterial Blood Oxygen Saturation 94, Arterial Blood Base Excess 1.8, Radames Test NA, Blood Gas Ventilator Setting NO, Blood Gas Inspired Oxygen 60% 08/16/21 12:46: Glucometer 247H 08/16/21 16:38: Glucometer 211H 08/16/21 20:12: Glucometer 255H 08/17/21 04:26: White Blood Count 13.8H, Red Blood Count 3.54L, Hemoglobin 11.5, Hematocrit 36, Mean Corpuscular Volume 101H, Mean Corpuscular Hemoglobin 33, Mean Corpuscular Hemoglobin Concent 32, Red Cell Distribution Width 13.0, Platelet Count 275, Mean Platelet Volume 10.6, Immature Granulocyte % (Auto) 9, Neutrophils (%) (Auto) 85H, Lymphocytes (%) (Auto) 1L, Monocytes (%) (Auto) 4, Eosinophils (%) (Auto) 1, Basophils (%) (Auto) 0, Neutrophils # (Auto) 11.8H, Lymphocytes # (Auto) 0.1L, Monocytes # (Auto) 0.6, Eosinophils # (Auto) 0.1, Basophils # (Auto) 0.0, Immature Granulocyte # (Auto) 1.2H, Sodium Level 138, Potassium Level 4.0, Chloride Level 99, Carbon Dioxide Level 26, Anion Gap 13, Blood Urea Nitrogen 32H, Creatinine 0.89, Estimat Glomerular Filtration Rate 63, BUN/Creatinine Ratio 36, Glucose Level 414*H, Calcium Level 7.8L, Corrected Calcium 8.0L, Phosphorus Level 2.0L, Magnesium Level 2.5H, Total Bilirubin 0.4, Aspartate Amino Transf (AST/SGOT) 36H, Alanine Aminotransferase (ALT/SGPT) 128H, Alkaline Phosphatase 70, Ammonia 29, Total Protein 6.0L, Albumin 3.7 Microbiology 08/14/21 Gram Stain - Final, Resulted 08/14/21 Anaerobic Culture - Preliminary, Resulted No anaerobes isolated 08/14/21 Body Fluid Culture - Preliminary, Resulted No growth Assessment/Plan Assessment/Plan Assessment/Plan Acute on Chronic Respiratory Failure R sided pleural effusion s/p thoracentisis pneumothorax - improving SOB COPD History of Lung Cancer s/p chemorads follows with Dr. Jin anxiety Patients o2 saturations have been within normal limits with current interventions. Her subjective shortness of breath is likely due to anxiety versus gross pathology. She will continue to be followed by medicine. She will continue to be followed by surgery for improvement of pneumothorax, but no surgical intervention planned at this time. Chest X Ray ordered today. All questions answered at this time. MANJIT WADDELL DO 08/17/21 1105: Subjective Time Seen by a Provider: 09:51 Subjective/Events-last exam Pt seen and examined, no new changes; still SOB. Review of Systems General: Fatigue, Malaise, Other (no dizziness ) Pulmonary: Dyspnea, Cough Cardiovascular: Chest Pain; No: Palpitations Gastrointestinal: No: Nausea, Vomiting, Abdominal Pain Objective Exam General Appearance: Chronically ill, Mild Distress, Obese HEENT: No Scleral Icterus (L), No Scleral Icterus (R) Respiratory: Chest Non Tender, Accessory Muscle Use, Decreased Breath Sounds (throughout but worse in right lower lobe), Wheezing (throughout anterior and posterior posts ) Cardiovascular: No Murmur, Tachycardia Gastrointestinal: non tender, soft, no organomegaly Assessment/Plan Assessment/Plan Assessment/Plan Acute on Chronic Respiratory Failure with R sided pleural effusion s/p thoracentisis pneumothorax - stable SOB COPD History of Lung Cancer s/p chemorads follows with Dr. Jin anxiety O2 saturation is appx the same, on slighly more O2 this am, her subjective shortness of breath is likely due to anxiety versus gross pathology. Will recheck CXR, had not yet been ordered today. Supervisory-Addendum Brief Verification & Attestation Participated in pt care: history, MDM, physical Personally performed: exam, history, MDM, supervision of care Care discussed with: Medical Student Procedures: n/a Verification and Attestation of Medical Student E/M Service A medical student performed and documented this service. I then reviewed and verified all information documented by the medical student and made modifications to such information, when appropriate. I personally performed a physical exam, medical decision making and then discussed any differences between the notes and made revisions as necessary to create one note. Manjit Waddell , 08/17/21 , 11:05 KEVIN CHANDLER Aug 17, 2021 08:01 MANJIT WADDELL DO Aug 17, 2021 11:05
[2021-08-17] MEDS: methylPREDNISolone 40 MG/ML (Solu-MEDROL) VIAL IV SCH ×2 (08:20→20:26)
[2021-08-17] MEDS: APIXABAN 5 MG (ELIQUIS) TABLET PO SCH ×2 (08:20→20:27)
[2021-08-17] MEDS: meTOprolol TARTRATE 25 MG (LOPRESSOR) TABLET PO SCH ×2 (08:20→20:26)
--- NOTE | 2021-08-17 09:48 | Cardiology Progress Note ---
Progress Note-Cardiology Events since last exam Date Seen by Provider: Aug 17, 2021 Time Seen by Provider: 09:43 Events since last exam We are following her for atrial fibrillation. She is awake and alert today. She is still short of breath at rest. She denies chest pain, palpitations, or syncope. Her chronic ankle edema is about the same. Certain portions of this document may have been dictated utilizing voice recognition technology. Inherent to this technology, typographical and grammatical errors may exist. As much as I am diligent to identify and correct these mistakes, some errors may remain in the document. Vitals Last set of Vitals Signs Vital Signs 08/17/21 08/17/21 08/17/21 08:40 08:41 09:00 Temp 36.3 Pulse 98 Resp 26 B/P (MAP) 127/77 (94) Pulse Ox 95 O2 Delivery Vapotherm O2 Flow Rate 35.00 70.00 FiO2 70 Labs Labs Laboratory Tests 08/17/21 04:26 Exam Vital Signs Vital Signs Date Time Temp Pulse Resp B/P (MAP) Pulse Ox O2 Delivery O2 Flow Rate FiO2 08/17/21 09:00 98 26 127/77 (94) 95 Vapotherm 35.00 70.00 08/17/21 08:41 36.3 08/17/21 08:40 70 Physical Exam General: Alert. No acute distress. She is obese. Eye: No xanthelasma. HENT: Normocephalic. Neck: Jugular venous pressure does not appear elevated. Respiratory: Lungs are clear to auscultation. Respirations are non-labored. Breath sounds are equal. Symmetrical chest wall expansion. Cardiovascular: Normal rate. Regular rhythm. No murmur. No gallop. 1+ bilateral pretibial edema with some areas of erythema but no skin breakdown. Gastrointestinal: Soft. Normal bowel sounds. Skin: Warm. Dry. Neurologic: Alert and oriented to person, place, time. Cranial nerves 3-11 grossly intact. Psychiatric: Cooperative. Appropriate mood & affect. Labs Laboratory Tests Test 08/16/21 12:46 08/16/21 16:38 08/16/21 20:12 08/17/21 04:26 Range/Units Glucometer 247 H 211 H 255 H 70-110 MG/DL White Blood Count 13.8 H 4.3-11.0 10^3/uL Red Blood Count 3.54 L 3.80-5.11 10^6/uL Hemoglobin 11.5 11.5-16.0 g/dL Hematocrit 36 35-52 % Mean Corpuscular Volume 101 H 80-99 fL Mean Corpuscular Hemoglobin 33 25-34 pg Mean Corpuscular Hemoglobin Concent 32 32-36 g/dL Red Cell Distribution Width 13.0 10.0-14.5 % Platelet Count 275 130-400 10^3/uL Mean Platelet Volume 10.6 9.0-12.2 fL Immature Granulocyte % (Auto) 9 % Neutrophils (%) (Auto) 85 H 42-75 % Lymphocytes (%) (Auto) 1 L 12-44 % Monocytes (%) (Auto) 4 0-12 % Eosinophils (%) (Auto) 1 0-10 % Basophils (%) (Auto) 0 0-10 % Neutrophils # (Auto) 11.8 H 1.8-7.8 10^3/uL Lymphocytes # (Auto) 0.1 L 1.0-4.0 10^3/uL Monocytes # (Auto) 0.6 0.0-1.0 10^3/uL Eosinophils # (Auto) 0.1 0.0-0.3 10^3/uL Basophils # (Auto) 0.0 0.0-0.1 10^3/uL Immature Granulocyte # (Auto) 1.2 H 0.0-0.1 10^3/uL Sodium Level 138 135-145 MMOL/L Potassium Level 4.0 3.6-5.0 MMOL/L Chloride Level 99 98-107 MMOL/L Carbon Dioxide Level 26 21-32 MMOL/L Anion Gap 13 5-14 MMOL/L Blood Urea Nitrogen 32 H 7-18 MG/DL Creatinine 0.89 0.60-1.30 MG/DL Estimat Glomerular Filtration Rate 63 BUN/Creatinine Ratio 36 Glucose Level 414 *H 70-105 MG/DL Calcium Level 7.8 L 8.5-10.1 MG/DL Corrected Calcium 8.0 L 8.5-10.1 MG/DL Phosphorus Level 2.0 L 2.3-4.7 MG/DL Magnesium Level 2.5 H 1.6-2.4 MG/DL Total Bilirubin 0.4 0.1-1.0 MG/DL Aspartate Amino Transf (AST/SGOT) 36 H 5-34 U/L Alanine Aminotransferase (ALT/SGPT) 128 H 0-55 U/L Alkaline Phosphatase 70 40-136 U/L Ammonia 29 11-32 UMOL/L Total Protein 6.0 L 6.4-8.2 GM/DL Albumin 3.7 3.2-4.5 GM/DL Diagnosis/Problems Diagnosis/Problems (1) Paroxysmal atrial fibrillation Assessment & Plan: This resolved with intravenous diltiazem. She will be converted back over to oral diltiazem which she was taking at home. She is also ordered for metoprolol tartrate which she was taking at home. She appears to have been on apixaban for stroke prophylaxis as an outpatient. (2) Coronary artery disease without angina pectoris Assessment & Plan: She has mild coronary artery disease noted on a previous cardiac catheterization earlier this year. She is not having overt angina. Continue beta-royer. I have added a lipid panel to the blood work from this morning. She is not on aspirin because she is on apixaban. (3) Primary hypertension Assessment & Plan: Blood pressure is reasonably well controlled. Continue diltiazem and metoprolol which she was taking at home. (4) Obesity Assessment & Plan: She needs to work on weight loss. There is good data that shows 20 pounds of weight loss will help reduce the risk of recurrent atrial fibrillation. MARIN ONEAL JR, MD Aug 17, 2021 09:48
[2021-08-17] MEDS: dilTIAZem120 MG (CARDIZEM CD) CAP PO SCH (10:00)
--- NOTE | 2021-08-17 11:00 | Diagnostic Imaging Report ---
CLINICAL INDICATION: Evaluate for pneumothorax. EXAM: Portable chest x-ray upright view. COMPARISON: Portable chest x-ray dated 08/16/2021. FINDINGS: There is interval improved aeration of the right lung base with persistent airspace infiltrate in the right lung base. There is questionable right basilar pneumothorax which has decreased in the interim. Again seen is mild left basilar atelectasis versus infiltrate. Pulmonary vasculature and cardiac silhouette are within normal limits. The remainder of this exam is stable. IMPRESSION: 1: There is improved aeration of the right lung base with residual small to moderate amount of atelectasis versus infiltrate in the right lung base. 2: There is decreased size of the suspected small right basilar pneumothorax. Dictated by: Dictated on workstation # [id number]
--- NOTE | 2021-08-17 11:10 | Tele-ICU Progress Note ---
Subjective Date Seen by a Provider: Aug 17, 2021 Time Seen by a Provider: 11:05 Subjective/Events-last exam She is a elderly female who has a history of advanced COPD on home oxygen presented with shortness of breath and found to have a large right large pleural effusion which was tapped on 08/14/2021 and removed about 2000 cc of pleural fluid and analysis of which is suggestive of exudate and likely a malignancy however cytology is still pending. Postthoracentesis chest x-ray showed very tiny right basilar pneumothorax which is unchanged today. The pneumothorax most likely due to trapped lung rather than a true pneumothorax. Patient currently on Vapotherm and feeling about the same no improvement or deterioration. No chest pain. Vital signs otherwise stable. I have made a video visit and discussed with the patient as well as the BUS GRE[employer] and reviewed the chest x-ray. Available records labs and chest x-rays reviewed by me. Review of Systems ROS PER ATTENDING PHYSICIAN Sepsis Event Evaluation Height, Weight, BMI Height: 5'5.00" Weight: 200lbs. 0.8oz. 90.579763of; 30.00 BMI Method: Exam Exam Patient acknowledged, consented, and participated in this virtual visit which was conducted using real time audio/video Vital Signs Date Time Temp Pulse Resp B/P (MAP) Pulse Ox O2 Delivery O2 Flow Rate FiO2 08/17/21 10:48 95 Vapotherm 35.00 70 08/17/21 10:00 87 21 139/69 (92) 95 Vapotherm 35.00 70.00 08/17/21 09:00 98 26 127/77 (94) 95 Vapotherm 35.00 70.00 08/17/21 08:41 36.3 08/17/21 08:40 Vapotherm 35.00 70 08/17/21 08:00 99 19 166/72 (103) 93 Vapotherm 35.00 70.00 08/17/21 07:00 104 24 148/76 (100) 91 Vapotherm 35.00 70.00 08/17/21 07:00 103 08/17/21 06:53 91 Vapotherm 35.00 70 08/17/21 06:00 91 24 140/91 (107) 94 Vapotherm 35.00 70.00 08/17/21 05:12 Vapotherm 35.00 70.00 08/17/21 05:00 90 24 129/71 (90) 93 Vapotherm 35.00 60.00 08/17/21 04:45 Vapotherm 35.00 60.00 08/17/21 04:22 Vapotherm 35.00 70.00 08/17/21 04:15 36.7 Vapotherm 35.00 80.00 08/17/21 04:11 Vapotherm 35.00 90.00 08/17/21 04:00 Vapotherm 35.00 100 08/17/21 04:00 99 14 111/76 (88) 92 Vapotherm 35.00 100.00 08/17/21 03:00 Vapotherm 35.00 100.00 08/17/21 03:00 95 26 155/82 (106) 92 Vapotherm 35.00 100.00 08/17/21 02:07 93 Vapotherm 35.00 60 08/17/21 02:00 84 29 132/78 (96) 94 Vapotherm 35.00 60.00 08/17/21 01:00 84 08/17/21 01:00 80 28 147/76 (99) 94 Vapotherm 35.00 60.00 08/17/21 00:00 87 22 138/85 (102) 94 Vapotherm 35.00 60.00 08/17/21 00:00 Vapotherm 35.00 60 08/16/21 23:24 35.9 08/16/21 23:00 93 23 136/90 (105) 94 Vapotherm 35.00 60.00 08/16/21 22:00 93 19 146/98 (114) 93 Vapotherm 35.00 60.00 08/16/21 21:37 92 Vapotherm 35.00 60 08/16/21 21:00 93 23 150/91 (110) 92 Vapotherm 35.00 60.00 08/16/21 20:01 35.7 08/16/21 20:00 90 17 140/89 (106) 95 Vapotherm 35.00 60.00 08/16/21 20:00 Vapotherm 35.00 60 08/16/21 19:00 88 14 138/62 (87) 95 Vapotherm 35.00 60.00 08/16/21 19:00 90 08/16/21 18:25 98 Vapotherm 35.00 60 08/16/21 18:00 84 24 151/69 (96) 100 Vapotherm 35.00 60.00 08/16/21 17:00 81 33 140/66 (90) 99 Vapotherm 35.00 60.00 08/16/21 16:33 Vapotherm 35.00 60 08/16/21 16:23 35.8 08/16/21 16:00 86 29 133/95 (108) 97 Vapotherm 35.00 60.00 08/16/21 15:00 75 22 134/83 (100) 96 Vapotherm 35.00 60.00 08/16/21 14:33 95 Vapotherm 35.00 60 08/16/21 14:00 90 18 126/72 (90) 96 Vapotherm 35.00 60.00 08/16/21 13:00 87 22 139/82 (101) 96 Vapotherm 35.00 60.00 08/16/21 12:52 88 08/16/21 12:48 Vapotherm 35.00 60 08/16/21 12:00 81 20 127/81 (96) 96 Vapotherm 35.00 60.00 I & O 08/17/21 07:00 Intake Total 1480 ml Output Total 500 ml Balance 980 ml Height & Weight Height: 5'5.00" Weight: 200lbs. 0.8oz. 90.477252yp; 30.00 BMI Method: General Appearance: No Apparent Distress, Chronically ill, Obese HEENT: PERRL/EOMI; No Scleral Icterus (L), No Scleral Icterus (R) Neck: Full Range of Motion, Non Tender, Supple Respiratory: Chest Non Tender, Accessory Muscle Use, Decreased Breath Sounds (throughout but worse in right lower lobe), Wheezing (throughout anterior and posterior posts ) Cardiovascular: No Murmur, Tachycardia Capillary Refill: Less Than 3 Seconds Peripheral Pulses: 2+ Radial Pulses (R), 2+ Radial Pulses (L) Gastrointestinal: non tender, soft, no organomegaly Extremity: Pedal Edema (3+ pitting bilaterally ) Neurologic/Psychiatric: Alert, Oriented x3, Normal Mood/Affect Skin: Warm/Dry Lymphatic: No Adenopathy (cervical ) Other comments PE PER ATTENDING PHYSICIAN Results Lab Laboratory Tests 08/16/21 04:42 08/17/21 04:26 Radiology CXR REVIEWED BY ME Assessment/Plan Assessment/Plan Acute and chronic hypoxic respiratory failure due to COPD exacerbation and pleural effusion. 2. Large right-sided pleural effusion in this patient with history of smoking likely an underlying malignancy present. However we are awaiting cytology report. 3. Paroxysmal atrial fibrillation being followed by cardiology and currently on Cardizem drip 4. Possible underlying pneumonia currently on antibiotic therapy 5. History of fall stage Ia non-small cell carcinoma of the lung in 2018 received chemo and radiation therapy. I suspect she may have a recurrence now. 6. Right basilar postthoracentesis small pneumothorax most likely due to trapped lung currently does not need any chest tube. Recommendations continue oxygenation via Vapotherm 2. We will await for cytology report 3. Bronchodilator therapy. 4. Atrial fibrillation treatment per cardiology service. 5. She is on Eliquis for DVT prophylaxis as well as for atrial fibrillation. Critical Care: Critically Ill Patient Time spent with patient (mins): 25 ANU CARLSON MD Aug 17, 2021 11:10
--- NOTE | 2021-08-17 12:16 | Progress Note - Hospitalist ---
Subjective HPI/CC On Admission Date Seen by Provider: Aug 17, 2021 Time Seen by Provider: 11:15 Subjective/Events-last exam Patient was doing well until she aspirated some hamburger meat Severe COPD DNR Son at bedside Patient appears to be a hospice candidate Review of Systems General: Fatigue, Malaise Objective Exam Vital Signs Vital Signs Date Time Temp Pulse Resp B/P (MAP) Pulse Ox O2 Delivery O2 Flow Rate FiO2 08/18/21 06:00 93 23 144/70 (94) 94 Vapotherm 30.00 70.00 08/18/21 04:00 70 08/18/21 03:26 37.0 Capillary Refill : Less Than 3 Seconds General Appearance: No Apparent Distress, WD/WN, Chronically ill Respiratory: No Accessory Muscle Use, No Respiratory Distress, Decreased Breath Sounds, Wheezing Cardiovascular: Regular Rate, Rhythm Neurologic/Psychiatric: Alert, Oriented x3, No Motor/Sensory Deficits, Normal Mood/Affect Results/Procedures Lab Laboratory Tests 08/18/21 03:10 Patient resulted labs reviewed. Assessment/Plan Assessment and Plan Assess & Plan/Chief Complaint Assessment: (1) Altered mental status (2) Acute and chronic respiratory failure with hypoxia (3) Pleural effusion on right (4) Elevated LFTs (5) Atrial fibrillation (6) HTN (hypertension) (7) HLD (hyperlipidemia) (8) CAD (coronary artery disease) (9) DVT prophylaxis Assessment: ICU care Monitor lung function Critical Care Critically Ill Patient HEINCHARLY YODER Aug 17, 2021 12:16
[2021-08-17] MEDS: LORazepam INJ 2 MG/ML (ATIVAN) VIAL IVP PRN (16:58)
[2021-08-17] MEDS: MONTELUKAST 10 MG (SINGULAIR) TAB PO SCH (20:26)
[2021-08-17] MEDS ORDERED: DOCUSATE SODIUM 100 MG (COLACE) CAP PO PRN (21:30)
[2021-08-17] MEDS: hydrOXYzine (VISTARIL/ATARAX) 25 MG capsule/tablet PO PRN (22:30)
[2021-08-18] VITALS (23 sets, daily range): BP systolic 111–157; BP diastolic 61–119
[2021-08-18] MEDS: RT-ALBUTEROL/IPRATROPIUM 3 ML (DUONEB) VIAL INH SCH ×6 (02:05→21:49)
[2021-08-18] MEDS: CEFEPIME INJECTION 1,000 MG in WATER (STERILE) FOR INJECTION 10 ML IV SCH ×4 (03:14→21:28)
[2021-08-18] MEDS: morphine INJ 4 MG/ML 1 ML (VIAL/SYRINGE) IVP PRN ×2 (03:22→21:29)
[2021-08-18 03:27] LABS: BASOPHILS % (AUTO) 0 % (0-10); EOSINOPHILS # (AUTO) 0.1 10^3/uL (0.0-0.3); EOSINOPHILS % (AUTO) 1 % (0-10); HEMATOCRIT 35 % (35-52); HEMOGLOBIN 11.3 g/dL (11.5-16.0); LYMPHOCYTES # (AUTO) 0.2 10^3/uL (1.0-4.0); LYMPHOCYTES % (AUTO) 1 % (12-44); MEAN CORPUSCULAR HEMOGLOBIN 32 pg (25-34); MEAN CORPUSCULAR HGB CONC 32 g/dL (32-36); MEAN CORPUSCULAR VOLUME 100 fL (80-99); MEAN PLATELET VOLUME 10.6 fL (9.0-12.2); MONOCYTES # (AUTO) 0.8 10^3/uL (0.0-1.0); MONOCYTES % (AUTO) 5 % (0-12); NEUTROPHILS # (AUTO) 12.4 10^3/uL (1.8-7.8); NEUTROPHILS % (AUTO) 83 % (42-75); PLATELET COUNT 258 10^3/uL (130-400)
[2021-08-18 03:29] LABS: ALBUMIN 3.5 GM/DL (3.2-4.5); POTASSIUM 4.5 MMOL/L (3.6-5.0)
[2021-08-18 03:30] LABS: CALCIUM 8.1 MG/DL (8.5-10.1)
[2021-08-18 03:32] LABS: TOTAL PROTEIN 5.8 GM/DL (6.4-8.2)
[2021-08-18 03:33] LABS: BILIRUBIN,TOTAL 0.4 MG/DL (0.1-1.0)
[2021-08-18 03:35] LABS: CREATININE SERUM 0.72 MG/DL (0.60-1.30); PHOSPHORUS 1.5 MG/DL (2.3-4.7)
[2021-08-18 03:38] LABS: MAGNESIUM 2.5 MG/DL (1.6-2.4)
[2021-08-18] MEDS: inSUlin ASPART (NovoLOG) 1 UNIT/0.01 ML (CHARGE PER UNIT) SC SCH ×4 (06:23→21:29)
[2021-08-18] MEDS: RT--FLUTICASONE/SALMETEROL 232-14 (AIRDUO RespiCLICK) IH SCH ×2 (06:43→21:49)
--- NOTE | 2021-08-18 07:16 | Progress Note - Hospitalist ---
Subjective HPI/CC On Admission Date Seen by Provider: Aug 18, 2021 Time Seen by Provider: 12:00 Subjective/Events-last exam Patient still very dyspneic Antibiotics continue Wheezing is significant May be a candidate for [place] On Vapotherm End stage COPD noted Constipation noted will start regimen Review of Systems General: Fatigue, Malaise Pulmonary: Dyspnea Gastrointestinal: Constipation Objective Exam Vital Signs Vital Signs Date Time Temp Pulse Resp B/P (MAP) Pulse Ox O2 Delivery O2 Flow Rate FiO2 08/19/21 04:00 103 24 120/64 (82) 90 Vapotherm 20.00 100.00 08/19/21 04:00 100 08/19/21 00:00 36.5 Capillary Refill : Less Than 3 Seconds General Appearance: No Apparent Distress, WD/WN, Anxious, Chronically ill Respiratory: Accessory Muscle Use, Decreased Breath Sounds, Wheezing Cardiovascular: Regular Rate, Rhythm Neurologic/Psychiatric: Alert, Oriented x3, No Motor/Sensory Deficits, Normal Mood/Affect Results/Procedures Lab Laboratory Tests 08/19/21 03:35 Patient resulted labs reviewed. Assessment/Plan Assessment and Plan Assess & Plan/Chief Complaint Assessment: (1) Altered mental status (2) Acute and chronic respiratory failure with hypoxia (3) Pleural effusion on right (4) Elevated LFTs (5) Atrial fibrillation (6) HTN (hypertension) (7) HLD (hyperlipidemia) (8) CAD (coronary artery disease) (9) DVT prophylaxis Assessment: ICU care Monitor lung function 08/18/2021: Pneumonia treatment Steroids [place] referral Critical Care Critically Ill Patient MELVINACHARLY PAUL Aug 18, 2021 07:16
[2021-08-18] MEDS: meTOprolol TARTRATE 25 MG (LOPRESSOR) TABLET PO SCH ×2 (08:32→21:28)
[2021-08-18] MEDS: methylPREDNISolone 40 MG/ML (Solu-MEDROL) VIAL IV SCH ×2 (08:32→21:28)
[2021-08-18] MEDS: dilTIAZem120 MG (CARDIZEM CD) CAP PO SCH (08:32)
[2021-08-18] MEDS: APIXABAN 5 MG (ELIQUIS) TABLET PO SCH ×2 (08:32→21:28)
[2021-08-18] MEDS: LORazepam INJ 2 MG/ML (ATIVAN) VIAL IVP PRN ×4 (09:01→21:29)
--- NOTE | 2021-08-18 09:50 | Cardiology Progress Note ---
Progress Note-Cardiology Events since last exam Date Seen by Provider: Aug 18, 2021 Time Seen by Provider: 09:45 Events since last exam We are following her due to atrial fibrillation. She remains in the intensive care unit due to her acute on chronic respiratory failure. She is still quite short of breath. She has been intermittently choking on food which then makes her cough and causes chest pain. She denies palpitations or syncope. Her mild, chronic ankle edema is unchanged. Certain portions of this document may have been dictated utilizing voice recognition technology. Inherent to this technology, typographical and grammatical errors may exist. As much as I am diligent to identify and correct these mistakes, some errors may remain in the document. Vitals Last set of Vitals Signs Vital Signs 08/18/21 08/18/21 08/18/21 08/18/21 03:26 07:20 09:00 09:27 Temp 37.0 Pulse 117 Resp 13 B/P (MAP) 154/119 (131) Pulse Ox 92 O2 Delivery Vapotherm O2 Flow Rate 30.00 50.00 FiO2 70 Labs Labs Laboratory Tests 08/18/21 03:10 Exam Vital Signs Vital Signs Date Time Temp Pulse Resp B/P (MAP) Pulse Ox O2 Delivery O2 Flow Rate FiO2 08/18/21 09:27 Vapotherm 30.00 50.00 08/18/21 09:00 117 13 154/119 (131) 92 08/18/21 07:20 70 08/18/21 03:26 37.0 Physical Exam General: Alert. Mild respiratory distress. She is obese. She is wearing oxygen by nasal cannula. Eye: No xanthelasma. HENT: Normocephalic. Neck: Jugular venous pressure does not appear elevated. Respiratory: Lungs have scattered wheezes bilaterally with decreased breath sounds at the bases. Respirations are mildly labored. Breath sounds are equal. Symmetrical chest wall expansion. Cardiovascular: Normal rate. Regular rhythm. No murmur. No gallop. 1+ bilateral pretibial edema with some slight erythema but no open wounds. Gastrointestinal: Soft. Normal bowel sounds. Skin: Warm. Dry. Neurologic: Alert and oriented to person, place, time. Cranial nerves 3-11 grossly intact. Psychiatric: Cooperative. Appropriate mood & affect. Labs Laboratory Tests Test 08/17/21 10:16 08/17/21 15:30 08/17/21 20:25 08/18/21 03:10 Range/Units Glucometer 308 H 271 H 300 H 70-110 MG/DL White Blood Count 15.0 H 4.3-11.0 10^3/uL Red Blood Count 3.50 L 3.80-5.11 10^6/uL Hemoglobin 11.3 L 11.5-16.0 g/dL Hematocrit 35 35-52 % Mean Corpuscular Volume 100 H 80-99 fL Mean Corpuscular Hemoglobin 32 25-34 pg Mean Corpuscular Hemoglobin Concent 32 32-36 g/dL Red Cell Distribution Width 13.2 10.0-14.5 % Platelet Count 258 130-400 10^3/uL Mean Platelet Volume 10.6 9.0-12.2 fL Immature Granulocyte % (Auto) 10 % Neutrophils (%) (Auto) 83 H 42-75 % Lymphocytes (%) (Auto) 1 L 12-44 % Monocytes (%) (Auto) 5 0-12 % Eosinophils (%) (Auto) 1 0-10 % Basophils (%) (Auto) 0 0-10 % Neutrophils # (Auto) 12.4 H 1.8-7.8 10^3/uL Lymphocytes # (Auto) 0.2 L 1.0-4.0 10^3/uL Monocytes # (Auto) 0.8 0.0-1.0 10^3/uL Eosinophils # (Auto) 0.1 0.0-0.3 10^3/uL Basophils # (Auto) 0.0 0.0-0.1 10^3/uL Immature Granulocyte # (Auto) 1.5 H 0.0-0.1 10^3/uL Sodium Level 137 135-145 MMOL/L Potassium Level 4.5 3.6-5.0 MMOL/L Chloride Level 99 98-107 MMOL/L Carbon Dioxide Level 28 21-32 MMOL/L Anion Gap 10 5-14 MMOL/L Blood Urea Nitrogen 22 H 7-18 MG/DL Creatinine 0.72 0.60-1.30 MG/DL Estimat Glomerular Filtration Rate 80 BUN/Creatinine Ratio 31 Glucose Level 311 H 70-105 MG/DL Calcium Level 8.1 L 8.5-10.1 MG/DL Corrected Calcium 8.5 8.5-10.1 MG/DL Phosphorus Level 1.5 L 2.3-4.7 MG/DL Magnesium Level 2.5 H 1.6-2.4 MG/DL Total Bilirubin 0.4 0.1-1.0 MG/DL Aspartate Amino Transf (AST/SGOT) 32 5-34 U/L Alanine Aminotransferase (ALT/SGPT) 130 H 0-55 U/L Alkaline Phosphatase 75 40-136 U/L Total Protein 5.8 L 6.4-8.2 GM/DL Albumin 3.5 3.2-4.5 GM/DL Diagnosis/Problems Diagnosis/Problems (1) Paroxysmal atrial fibrillation Assessment & Plan: She remains in sinus rhythm. This resolved with intravenous diltiazem. She is now back on oral diltiazem and metoprolol which she was taking at home which she was taking at home. She should continue on apixaban for stroke prophylaxis. (2) Coronary artery disease without angina pectoris Assessment & Plan: She had mild coronary artery disease noted on a previous cardiac catheterization earlier this year. She is not having overt angina. Continue beta-royer. Her LDL level is reasonably controlled as noted on blood work from 08/17. She is not on aspirin because she is on apixaban. (3) Primary hypertension Assessment & Plan: Blood pressure is intermittently elevated. Continue diltiazem and metoprolol which she was taking at home. If her blood pressures remain elevated, we may need to make some adjustments to her antihypertensive medication. (4) Acute and chronic respiratory failure with hypoxia Status: Acute Assessment & Plan: This is most likely due to her severe chronic obstructive pulmonary disease. (5) Obesity Assessment & Plan: She needs to work on weight loss. There is good data that shows 20 pounds of weight loss will help reduce the risk of recurrent atrial fibrillation. MARIN ONEAL JR, MD Aug 18, 2021 09:50
--- NOTE | 2021-08-18 11:32 | Tele-ICU Progress Note ---
Subjective Date Seen by a Provider: Aug 18, 2021 Time Seen by a Provider: 11:29 Subjective/Events-last exam Patient today is somewhat drowsy but arousable and answering questions. She denies any significant chest pain. Video visit made and discussed with the FILM SPLICER. She is still on Vapotherm without much change. Review of Systems ROS PER ATTENDING PHYSICIAN Sepsis Event Evaluation Height, Weight, BMI Height: 5'5.00" Weight: 200lbs. 0.8oz. [id number]; 30.00 BMI Method: Exam Exam Patient acknowledged, consented, and participated in this virtual visit which was conducted using real time audio/video Vital Signs Date Time Temp Pulse Resp B/P (MAP) Pulse Ox O2 Delivery O2 Flow Rate FiO2 08/18/21 11:10 91 Vapotherm 30.00 60 08/18/21 11:00 91 19 123/78 (93) 92 Vapotherm 30.00 60.00 08/18/21 10:00 92 30 133/94 (107) 91 Vapotherm 30.00 60.00 08/18/21 09:59 Vapotherm 30.00 60.00 08/18/21 09:27 Vapotherm 30.00 50.00 08/18/21 09:00 117 13 154/119 (131) 92 Vapotherm 30.00 70.00 08/18/21 08:00 105 14 147/66 (93) 95 Vapotherm 30.00 70.00 08/18/21 07:20 95 Vapotherm 30.00 70 08/18/21 07:00 106 12 117/82 (94) 98 Vapotherm 30.00 70.00 08/18/21 07:00 106 08/18/21 06:44 97 Vapotherm 30.00 90 08/18/21 06:00 93 23 144/70 (94) 94 Vapotherm 30.00 70.00 08/18/21 05:00 97 22 126/75 (92) 94 Vapotherm 30.00 70.00 08/18/21 04:00 93 33 141/62 (88) 95 Vapotherm 30.00 70.00 08/18/21 04:00 Vapotherm 30.00 70 08/18/21 03:26 37.0 08/18/21 03:00 99 17 139/68 (91) 93 Vapotherm 30.00 70.00 08/18/21 02:05 95 Vapotherm 30.00 70 08/18/21 02:00 96 31 142/84 (103) 96 Vapotherm 30.00 70.00 08/18/21 01:00 95 08/18/21 01:00 96 20 140/64 (89) 94 Vapotherm 30.00 70.00 08/18/21 00:00 100 17 157/84 (108) 93 Vapotherm 30.00 70.00 08/18/21 00:00 Vapotherm 30.00 70 08/17/21 23:57 37.0 08/17/21 23:00 106 16 150/78 (102) 94 Vapotherm 30.00 70.00 08/17/21 22:00 108 19 150/67 (94) 95 Vapotherm 30.00 70.00 08/17/21 21:22 94 Vapotherm 30.00 70 08/17/21 21:00 108 20 168/79 (108) 94 Vapotherm 30.00 70.00 08/17/21 20:00 Vapotherm 30.00 70 08/17/21 20:00 110 23 178/88 (118) 93 Vapotherm 30.00 70.00 08/17/21 19:37 36.6 114 26 93 Vapotherm 30.00 70.00 08/17/21 19:00 145/71 (95) 08/17/21 19:00 114 08/17/21 18:10 93 Vapotherm 30.00 70 08/17/21 18:00 110 28 145/68 (93) 93 Vapotherm 30.00 70.00 08/17/21 17:00 105 26 153/74 (100) 93 Vapotherm 30.00 70.00 08/17/21 16:00 Vapotherm 30.00 70 08/17/21 16:00 101 26 168/79 (108) 95 Vapotherm 30.00 70.00 08/17/21 15:31 37.2 08/17/21 15:00 103 20 161/77 (105) 93 Vapotherm 30.00 70.00 08/17/21 14:41 92 Vapotherm 30.00 70 08/17/21 14:00 95 24 142/62 (88) 92 Vapotherm 30.00 70.00 08/17/21 13:00 106 21 165/72 (103) 92 Vapotherm 30.00 70.00 08/17/21 12:56 112 08/17/21 12:50 Vapotherm 30.00 70.00 08/17/21 12:15 Vapotherm 40.00 100.00 08/17/21 12:13 Vapotherm 35.00 70 08/17/21 12:13 36.6 110 29 Vapotherm 35.00 70.00 08/17/21 12:00 98 21 136/93 (107) 95 Vapotherm 35.00 70.00 I & O 08/18/21 07:00 Intake Total 1570 ml Output Total 1225 ml Balance 345 ml Height & Weight Height: 5'5.00" Weight: 200lbs. 0.8oz. [id number]; 30.00 BMI Method: General Appearance: No Apparent Distress, WD/WN, Chronically ill HEENT: PERRL/EOMI; No Scleral Icterus (L), No Scleral Icterus (R) Neck: Full Range of Motion, Non Tender, Supple Respiratory: No Accessory Muscle Use, No Respiratory Distress, Decreased Breath Sounds, Wheezing Cardiovascular: Regular Rate, Rhythm Capillary Refill: Less Than 3 Seconds Peripheral Pulses: 2+ Radial Pulses (R), 2+ Radial Pulses (L) Gastrointestinal: non tender, soft, no organomegaly Extremity: Pedal Edema (3+ pitting bilaterally ) Neurologic/Psychiatric: Alert, Oriented x3, No Motor/Sensory Deficits, Normal Mood/Affect Skin: Warm/Dry Lymphatic: No Adenopathy (cervical ) Other comments PE PER ATTENDING PHYSICIAN Results Lab Laboratory Tests 08/17/21 04:26 08/18/21 03:10 Assessment/Plan Assessment/Plan Acute and chronic hypoxic respiratory failure due to COPD exacerbation and pleural effusion. 2. Large right-sided pleural effusion in this patient with history of smoking likely an underlying malignancy present. However we are awaiting cytology report. 3. Paroxysmal atrial fibrillation being followed by cardiology and currently on Cardizem drip 4. Possible underlying pneumonia currently on antibiotic therapy 5. History of fall stage Ia non-small cell carcinoma of the lung in 2018 r eceived chemo and radiation therapy. I suspect she may have a recurrence now. 6. Right basilar postthoracentesis small pneumothorax most likely due to trapped lung currently does not need any chest tube. Recommendations continue oxygenation via Vapotherm 2. We will await for cytology report 3. Bronchodilator therapy. 4. Atrial fibrillation treatment per cardiology service. 5. She is on Eliquis for DVT prophylaxis as well as for atrial fibrillation. Critical Care: Critically Ill Patient Time spent with patient (mins): 25 ANU CARLSON MD Aug 18, 2021 11:32
--- NOTE | 2021-08-18 12:23 | Progress Note - Surgery ---
Subjective Time Seen by a Provider: 11:49 Subjective/Events-last exam Pt seen and examined, appears to be more alert today. Still using accessory muscles to breathe. Her main complaint today is constipation. Review of Systems General: Fatigue Pulmonary: Dyspnea; No Cough, No Pleuritic Chest Pain Cardiovascular: No: Chest Pain, Palpitations Gastrointestinal: Constipation; No: Nausea, Vomiting, Abdominal Pain Objective Exam Vital Signs Date Time Temp Pulse Resp B/P (MAP) Pulse Ox O2 Delivery O2 Flow Rate FiO2 08/18/21 12:00 94 24 121/93 (102) 90 Vapotherm 30.00 60.00 08/18/21 11:10 91 Vapotherm 30.00 60 08/18/21 11:00 91 19 123/78 (93) 92 Vapotherm 30.00 60.00 08/18/21 10:00 92 30 133/94 (107) 91 Vapotherm 30.00 60.00 08/18/21 09:59 Vapotherm 30.00 60.00 08/18/21 09:27 Vapotherm 30.00 50.00 08/18/21 09:00 117 13 154/119 (131) 92 Vapotherm 30.00 70.00 08/18/21 08:00 105 14 147/66 (93) 95 Vapotherm 30.00 70.00 08/18/21 07:20 95 Vapotherm 30.00 70 08/18/21 07:00 106 12 117/82 (94) 98 Vapotherm 30.00 70.00 08/18/21 07:00 106 08/18/21 06:44 97 Vapotherm 30.00 90 08/18/21 06:00 93 23 144/70 (94) 94 Vapotherm 30.00 70.00 08/18/21 05:00 97 22 126/75 (92) 94 Vapotherm 30.00 70.00 08/18/21 04:00 93 33 141/62 (88) 95 Vapotherm 30.00 70.00 08/18/21 04:00 Vapotherm 30.00 70 08/18/21 03:26 37.0 08/18/21 03:00 99 17 139/68 (91) 93 Vapotherm 30.00 70.00 08/18/21 02:05 95 Vapotherm 30.00 70 08/18/21 02:00 96 31 142/84 (103) 96 Vapotherm 30.00 70.00 08/18/21 01:00 95 08/18/21 01:00 96 20 140/64 (89) 94 Vapotherm 30.00 70.00 08/18/21 00:00 100 17 157/84 (108) 93 Vapotherm 30.00 70.00 08/18/21 00:00 Vapotherm 30.00 70 08/17/21 23:57 37.0 08/17/21 23:00 106 16 150/78 (102) 94 Vapotherm 30.00 70.00 08/17/21 22:00 108 19 150/67 (94) 95 Vapotherm 30.00 70.00 08/17/21 21:22 94 Vapotherm 30.00 70 08/17/21 21:00 108 20 168/79 (108) 94 Vapotherm 30.00 70.00 08/17/21 20:00 Vapotherm 30.00 70 08/17/21 20:00 110 23 178/88 (118) 93 Vapotherm 30.00 70.00 08/17/21 19:37 36.6 114 26 93 Vapotherm 30.00 70.00 08/17/21 19:00 145/71 (95) 08/17/21 19:00 114 08/17/21 18:10 93 Vapotherm 30.00 70 08/17/21 18:00 110 28 145/68 (93) 93 Vapotherm 30.00 70.00 08/17/21 17:00 105 26 153/74 (100) 93 Vapotherm 30.00 70.00 08/17/21 16:00 Vapotherm 30.00 70 08/17/21 16:00 101 26 168/79 (108) 95 Vapotherm 30.00 70.00 08/17/21 15:31 37.2 08/17/21 15:00 103 20 161/77 (105) 93 Vapotherm 30.00 70.00 08/17/21 14:41 92 Vapotherm 30.00 70 08/17/21 14:00 95 24 142/62 (88) 92 Vapotherm 30.00 70.00 08/17/21 13:00 106 21 165/72 (103) 92 Vapotherm 30.00 70.00 08/17/21 12:56 112 08/17/21 12:50 Vapotherm 30.00 70.00 08/17/21 12:15 Vapotherm 40.00 100.00 08/17/21 12:13 Vapotherm 35.00 70 08/17/21 12:13 36.6 110 29 Vapotherm 35.00 70.00 I & O 08/18/21 07:00 Intake Total 1570 ml Output Total 1225 ml Balance 345 ml Capillary Refill : Less Than 3 Seconds General Appearance: Chronically ill, Mild Distress, Obese HEENT: PERRL/EOMI; No Scleral Icterus (L), No Scleral Icterus (R) Respiratory: Accessory Muscle Use, Decreased Breath Sounds, Respiratory Distress, Wheezing Cardiovascular: Regular Rate, Rhythm, No Murmur Peripheral Pulses: 2+ Radial Pulses (R), 2+ Radial Pulses (L) Gastrointestinal: non tender, soft, no organomegaly Extremity: Pedal Edema (3+ pitting bilaterally ) Results Lab Laboratory Tests 08/17/21 15:30: Glucometer 271H 08/17/21 20:25: Glucometer 300H 08/18/21 03:10: White Blood Count 15.0H, Red Blood Count 3.50L, Hemoglobin 11.3L, Hematocrit 35, Mean Corpuscular Volume 100H, Mean Corpuscular Hemoglobin 32, Mean Corpuscular Hemoglobin Concent 32, Red Cell Distribution Width 13.2, Platelet Count 258, Mean Platelet Volume 10.6, Immature Granulocyte % (Auto) 10, Neutrophils (%) (Auto) 83H, Lymphocytes (%) (Auto) 1L, Monocytes (%) (Auto) 5, Eosinophils (%) (Auto) 1, Basophils (%) (Auto) 0, Neutrophils # (Auto) 12.4H, Lymphocytes # (Auto) 0.2L, Monocytes # (Auto) 0.8, Eosinophils # (Auto) 0.1, Basophils # (Auto) 0.0, Immature Granulocyte # (Auto) 1.5H, Sodium Level 137, Potassium Level 4.5, Chloride Level 99, Carbon Dioxide Level 28, Anion Gap 10, Blood Urea Nitrogen 22H, Creatinine 0.72, Estimat Glomerular Filtration Rate 80, BUN/Creatinine Ratio 31, Glucose Level 311H, Calcium Level 8.1L, Corrected Calcium 8.5, Phosphorus Level 1.5L, Magnesium Level 2.5H, Total Bilirubin 0.4, Aspartate Amino Transf (AST/SGOT) 32, Alanine Aminotransferase (ALT/SGPT) 130H, Alkaline Phosphatase 75, Total Protein 5.8L, Albumin 3.5 08/18/21 10:57: Glucometer 243H Microbiology 08/14/21 Gram Stain - Final, Resulted 08/14/21 Anaerobic Culture - Preliminary, Resulted No anaerobes isolated 08/14/21 Body Fluid Culture - Final, Resulted No growth Assessment/Plan Assessment/Plan Assessment/Plan Acute on Chronic Respiratory Failure with R sided pleural effusion s/p thoracentisis pneumothorax - improved SOB COPD History of Lung Cancer s/p chemorads follows with Dr. Jin Anxiety O2 saturation is appx the same; but worse when she doesn't concentrate and breathe through her nose, O2 a little bit less today. Her subjective shortness of breath is likely due to anxiety versus gross pathology. [facility] SNEHA BOLIVAR DO Aug 18, 2021 12:22
[2021-08-18] MEDS: hydrOXYzine (VISTARIL/ATARAX) 25 MG capsule/tablet PO PRN (16:47)
[2021-08-18] MEDS: MONTELUKAST 10 MG (SINGULAIR) TAB PO SCH (21:29)
[2021-08-19] VITALS (24 sets, daily range): BP systolic 110–164; BP diastolic 46–91
[2021-08-19] MEDS: morphine INJ 4 MG/ML 1 ML (VIAL/SYRINGE) IVP PRN ×4 (00:12→13:22)
[2021-08-19] MEDS: RT-ALBUTEROL/IPRATROPIUM 3 ML (DUONEB) VIAL INH SCH ×6 (01:16→22:54)
[2021-08-19] MEDS: CEFEPIME INJECTION 1,000 MG in WATER (STERILE) FOR INJECTION 10 ML IV SCH ×4 (02:19→20:40)
[2021-08-19 03:42] LABS: BASOPHILS % (AUTO) 0 % (0-10); EOSINOPHILS # (AUTO) 0.1 10^3/uL (0.0-0.3); EOSINOPHILS % (AUTO) 0 % (0-10); HEMATOCRIT 37 % (35-52); HEMOGLOBIN 11.5 g/dL (11.5-16.0); LYMPHOCYTES # (AUTO) 0.2 10^3/uL (1.0-4.0); LYMPHOCYTES % (AUTO) 1 % (12-44); MEAN CORPUSCULAR HEMOGLOBIN 32 pg (25-34); MEAN CORPUSCULAR HGB CONC 31 g/dL (32-36); MEAN CORPUSCULAR VOLUME 102 fL (80-99); MEAN PLATELET VOLUME 10.8 fL (9.0-12.2); MONOCYTES # (AUTO) 0.9 10^3/uL (0.0-1.0); MONOCYTES % (AUTO) 6 % (0-12); NEUTROPHILS # (AUTO) 11.4 10^3/uL (1.8-7.8); NEUTROPHILS % (AUTO) 82 % (42-75); PLATELET COUNT 235 10^3/uL (130-400); WHITE BLOOD COUNT 13.9 10^3/uL (4.3-11.0)
[2021-08-19 03:52] LABS: ALBUMIN 3.5 GM/DL (3.2-4.5)
[2021-08-19 03:53] LABS: POTASSIUM 4.7 MMOL/L (3.6-5.0)
[2021-08-19 03:54] LABS: CALCIUM 8.2 MG/DL (8.5-10.1)
[2021-08-19 03:55] LABS: TOTAL PROTEIN 5.6 GM/DL (6.4-8.2)
[2021-08-19 03:57] LABS: BILIRUBIN,TOTAL 0.4 MG/DL (0.1-1.0)
[2021-08-19 03:59] LABS: CREATININE SERUM 0.74 MG/DL (0.60-1.30)
[2021-08-19] MEDS: LORazepam INJ 2 MG/ML (ATIVAN) VIAL IVP PRN ×4 (04:00→21:31)
[2021-08-19 04:01] LABS: MAGNESIUM 2.5 MG/DL (1.6-2.4)
[2021-08-19] MEDS: inSUlin ASPART (NovoLOG) 1 UNIT/0.01 ML (CHARGE PER UNIT) SC SCH ×4 (05:42→20:41)
[2021-08-19] MEDS: RT--FLUTICASONE/SALMETEROL 232-14 (AIRDUO RespiCLICK) IH SCH ×2 (06:50→19:00)
--- NOTE | 2021-08-19 07:09 | Diagnostic Imaging Report ---
Indication: Pneumonia COMPARISON: 08/17/2021 AP view of the chest again demonstrates blunting of costophrenic sulci, greater on the right. There are old right rib fracture deformities with associated right pleural thickening. Basilar atelectasis and/or pneumonitis is stable or mildly improved when compared to previous study. IMPRESSION: Continued pleural fluid and/or thickening without definite pneumothorax. Basilar atelectasis and/or pneumonitis is stable or mildly improved. Dictated by: Dictated on workstation # [id number]
--- NOTE | 2021-08-19 07:51 | Progress Note - Surgery ---
NADIA ALEMAN 08/19/21 0751: Subjective Date Seen by a Provider: Aug 19, 2021 Time Seen by a Provider: 07:30 Subjective/Events-last exam Pt said she is doing terrible and short of breath. Did not have any understandable response after that. Review of Systems General: Fatigue Pulmonary: Dyspnea Objective Exam Vital Signs Date Time Temp Pulse Resp B/P (MAP) Pulse Ox O2 Delivery O2 Flow Rate FiO2 08/19/21 06:58 93 Vapotherm 20.00 100 08/19/21 06:00 105 24 130/86 (98) 91 Vapotherm 20.00 100.00 08/19/21 05:00 93 23 118/69 (91) 93 Vapotherm 20.00 100.00 08/19/21 04:00 103 24 120/64 (82) 90 Vapotherm 20.00 100.00 08/19/21 04:00 96 Vapotherm 20.00 100 08/19/21 03:00 98 22 141/74 (96) 95 Vapotherm 20.00 100.00 08/19/21 02:00 92 20 134/66 (88) 97 Vapotherm 20.00 100.00 08/19/21 01:16 93 Vapotherm 20.00 100 08/19/21 01:00 87 19 124/88 (100) 96 Vapotherm 20.00 100.00 08/19/21 01:00 87 08/19/21 00:00 96 Vapotherm 20.00 100 08/19/21 00:00 36.5 08/19/21 00:00 92 27 119/46 (70) 96 Vapotherm 20.00 100.00 08/18/21 23:00 95 21 121/63 (82) 99 Vapotherm 20.00 100.00 08/18/21 22:00 114 22 111/88 (96) 100 Vapotherm 20.00 100.00 08/18/21 21:49 97 Vapotherm 20.00 100 08/18/21 21:00 107 28 134/61 (85) 100 Vapotherm 20.00 100.00 08/18/21 20:00 96 Vapotherm 20.00 100 08/18/21 20:00 36.5 08/18/21 20:00 107 125/66 (87) 100 Vapotherm 20.00 100.00 08/18/21 19:00 112 08/18/21 19:00 112 26 148/97 (122) 95 Vapotherm 20.00 100.00 08/18/21 18:38 96 Vapotherm 20.00 100 08/18/21 18:20 Vapotherm 20.00 100.00 08/18/21 18:00 106 19 150/114 (126) 96 Vapotherm 30.00 60.00 08/18/21 17:00 103 26 140/79 (99) 97 Vapotherm 30.00 60.00 08/18/21 16:00 93 Vapotherm 35.00 75 08/18/21 16:00 101 21 153/70 (97) 92 Vapotherm 30.00 60.00 08/18/21 15:00 105 25 93 Vapotherm 30.00 60.00 08/18/21 14:40 95 Vapotherm 30.00 90 08/18/21 14:00 99 24 141/72 (93) 94 Vapotherm 30.00 60.00 08/18/21 13:00 98 08/18/21 13:00 100 24 141/79 (92) 91 Vapotherm 30.00 60.00 08/18/21 12:00 93 Vapotherm 30.00 90 08/18/21 12:00 94 24 121/93 (102) 90 Vapotherm 30.00 60.00 08/18/21 11:10 91 Vapotherm 30.00 60 08/18/21 11:00 91 19 123/78 (93) 92 Vapotherm 30.00 60.00 08/18/21 10:00 92 30 133/94 (107) 91 Vapotherm 30.00 60.00 08/18/21 09:59 Vapotherm 30.00 60.00 08/18/21 09:27 Vapotherm 30.00 50.00 08/18/21 09:00 117 13 154/119 (131) 92 Vapotherm 30.00 70.00 08/18/21 08:00 105 14 147/66 (93) 95 Vapotherm 30.00 70.00 I & O 08/19/21 07:00 Intake Total 1150 ml Output Total 1225 ml Balance -75 ml Capillary Refill : Less Than 3 Seconds General Appearance: Anxious, Chronically ill, Mild Distress, Obese HEENT: No Scleral Icterus (L), No Scleral Icterus (R) Respiratory: Accessory Muscle Use, Decreased Breath Sounds, Wheezing Cardiovascular: Regular Rate, Rhythm Peripheral Pulses: 2+ Radial Pulses (R), 2+ Radial Pulses (L) Extremity: Pedal Edema (3+ pitting bilaterally ) Neurologic/Psychiatric: No Normal Mood/Affect (Pt anxious when I was trying to speak with her) Skin: Normal Color, Warm/Dry Results Lab Laboratory Tests 08/18/21 10:57: Glucometer 243H 08/18/21 17:38: Glucometer 335H 08/18/21 21:21: Glucometer 291H 08/19/21 03:35: White Blood Count 13.9H, Red Blood Count 3.61L, Hemoglobin 11.5, Hematocrit 37, Mean Corpuscular Volume 102H, Mean Corpuscular Hemoglobin 32, Mean Corpuscular Hemoglobin Concent 31L, Red Cell Distribution Width 13.1, Platelet Count 235, Mean Platelet Volume 10.8, Immature Granulocyte % (Auto) 10, Neutrophils (%) (Auto) 82H, Lymphocytes (%) (Auto) 1L, Monocytes (%) (Auto) 6, Eosinophils (%) (Auto) 0, Basophils (%) (Auto) 0, Neutrophils # (Auto) 11.4H, Lymphocytes # (Auto) 0.2L, Monocytes # (Auto) 0.9, Eosinophils # (Auto) 0.1, Basophils # (Auto) 0.0, Immature Granulocyte # (Auto) 1.4H, Sodium Level 139, Potassium Level 4.7, Chloride Level 102, Carbon Dioxide Level 26, Anion Gap 11, Blood Urea Nitrogen 21H, Creatinine 0.74, Estimat Glomerular Filtration Rate 78, BUN/Creatinine Ratio 28, Glucose Level 341H, Calcium Level 8.2L, Corrected Calcium 8.6, Phosphorus Level 2.0L, Magnesium Level 2.5H, Total Bilirubin 0.4, Aspartate Amino Transf (AST/SGOT) 39H, Alanine Aminotransferase (ALT/SGPT) 146H, Alkaline Phosphatase 72, Total Protein 5.6L, Albumin 3.5 Microbiology 08/14/21 Gram Stain - Final, Resulted 08/14/21 Anaerobic Culture - Preliminary, Resulted No anaerobes isolated 08/14/21 Body Fluid Culture - Final, Resulted No growth Assessment/Plan Assessment/Plan Assessment/Plan Acute on Chronic Respiratory Failure with R sided pleural effusion s/p thoracentisis pneumothorax - improved SOB COPD History of Lung Cancer s/p chemorads follows with Dr. Jin Anxiety O2 saturation is appx the same; but worse when she doesn't concentrate and breathe through her nose, O2 a little bit less today. Her subjective shortness of breath is likely due to anxiety versus gross pathology. [facility] MANJIT WADDELL DO 08/19/21 1400: Subjective Time Seen by a Provider: 12:32 Subjective/Events-last exam Pt seen and examined, appears to be having more trouble breathing today. States she is tired. Review of Systems General: Fatigue Pulmonary: Dyspnea; No Cough Cardiovascular: No: Chest Pain Gastrointestinal: No: Nausea, Vomiting, Abdominal Pain Objective Exam General Appearance: Anxious, Chronically ill, Mild Distress, Obese Respiratory: Accessory Muscle Use, Decreased Breath Sounds, Wheezing Cardiovascular: Regular Rate, Rhythm Extremity: Pedal Edema (3+ pitting bilaterally ) Assessment/Plan Assessment/Plan Assessment/Plan Acute on Chronic Respiratory Failure with R sided pleural effusion s/p thoracentisis, pneumothorax - improved Pleural effusion -Pathology came back with Malignant cells SOB, COPD, Anxiety O2 saturation is worse and more O2 today. Her subjective shortness of breath is likely due to anxiety versus gross pathology. [facility] Supervisory-Addendum Brief Verification & Attestation Participated in pt care: history, MDM, physical Personally performed: exam, history, MDM, supervision of care Care discussed with: Medical Student Procedures: n/a Verification and Attestation of Medical Student E/M Service A medical student performed and documented this service. I then reviewed and verified all information documented by the medical student and made modifications to such information, when appropriate. I personally performed a physical exam, medical decision making and then discussed any differences between the notes and made revisions as necessary to create one note. Manjit Waddell , 08/19/21 , 14:03 NADIA ALEMAN Aug 19, 2021 07:51 MANJIT WADDELL DO Aug 19, 2021 14:00
[2021-08-19] MEDS: APIXABAN 5 MG (ELIQUIS) TABLET PO SCH ×2 (08:08→20:41)
[2021-08-19] MEDS: meTOprolol TARTRATE 25 MG (LOPRESSOR) TABLET PO SCH ×2 (08:08→20:41)
[2021-08-19] MEDS: dilTIAZem120 MG (CARDIZEM CD) CAP PO SCH (08:08)
[2021-08-19] MEDS: methylPREDNISolone 40 MG/ML (Solu-MEDROL) VIAL IV SCH ×2 (08:10→20:40)
--- NOTE | 2021-08-19 09:35 | Cardiology Progress Note ---
Subjective Date Seen by Provider: Aug 19, 2021 Time Seen by Provider: 09:33 Subjective/Events-last exam Patient was seen at bedside, laying down, lethargic. Still on Vapotherm 85%. Review of Systems General: No Chills, No Night Sweats; Fatigue, Malaise; No Appetite, No Other HEENT: No Head Aches, No Visual Changes, No Eye Pain, No Ear Pain, No Dysphasia, No Sinus Congestion, No Post Nasal Drip, No Sore Throat, No Other Pulmonary: Dyspnea; No Cough, No Pleuritic Chest Pain, No Other Cardiovascular: No: Chest Pain, Palpitations, Orthopnea, Paroxysmal Noc. Dyspnea, Edema, Lt Headedness, Other Objective-Cardiology Exam Last Set of Vital Signs Vital Signs 08/19/21 08/19/21 08:00 08:58 Temp 36.2 Pulse 109 Resp 18 B/P (MAP) 148/85 (106) Pulse Ox 92 O2 Delivery High Flow N/C O2 Flow Rate 25.00 FiO2 85 I&O Intake and Output 08/19/21 00:00 Intake Total 950 ml Output Total 1075 ml Balance -125 ml Intake Oral 950 ml Output Urine Total 1075 ml General: Alert, Moderate Distress HEENT: Atraumatic Neck: Supple Lungs: Other (diminish) Heart: Regular Rate, Normal S1, Normal S2, No Murmurs Abdomen: Normal Bowel Sounds, Soft, Other Extremities: No Clubbing, Other (2+ pitting edema) Skin: No Rashes Neuro: Cranial Nerves 3-12 NL Psych/Mental Status: Other (Lethargic) Results Lab Laboratory Tests 08/19/21 03:35 A/P-Cardiology Admission Diagnosis Acute respiratory failure Acute exacerbation of COPD Paroxysmal atrial flutter Tachycardia Assessment/Plan Acute on chronic respiratory failure, large pleural effusion status post thoracentesis with residual pneumothorax, managed by general surgery and medical team, discussed with Dr. Blackwood the management plan, possible transfer to [facility]. Acute exacerbation of COPD, maintained on Vapotherm, no significant improvement over the weekend. Paroxysmal atrial fibrillation/flutter, had an episode of atrial flutter with rapid ventricular response, converted to sinus rhythm and doing better, currentl y in sinus rhythm, continue to monitor Change in mental status, lethargic, probably secondary to hypoxemia. Continue to monitor closely Nonobstructive coronary artery disease per LHC done 07/10/21, Continue to monitor 2D Echocardiogram done 06/26/21 with moderate concentric hypertrophy, EF 65-70%. P A 35-40mmHg. Patient was tachycardic with hyperdynamic ventricle, overall suboptimal study Hypertension, continue to monitor blood pressure. No changes are recommended at this time History of GI bleed in the past, has refused endoscopy in the past. DM, management per PCP. Back pain, T6 fracture, had kyphoplasty by Dr. Wallace in July 2019. Continue to monitor History of lung cancer, followed by Dr. [place] History of acute psychosis, improved History of renal failure, improved, continue to monitor History of tobaccoism, stopped in 1993. Continue to monitor Hypothyroidism, management per PCP BMI 38, we discussed weight loss Mild nonobstructive carotid artery stenosis per carotid duplex done April 2021 CHAGO EISENBERG MD Aug 19, 2021 09:35
[2021-08-19 10:05] LABS: ABG BASE EXCESS 6.4 MMOL/L (-2.5-2.5); ABG OXYGEN SATURATION 96 % (94-100); ABG PCO2 55 MMHG (35-45); ABG PH 7.38 (7.37-7.43); ABG PO2 80 MMHG (79-93); ABG TCO2 33.3 MMOL/L (21.0-31.0)
[2021-08-19 10:06] LABS: INSPIRED O2 25L/80%; PATIENT TEMP 36.5
--- NOTE | 2021-08-19 10:47 | Tele-ICU Progress Note ---
Subjective Date Seen by a Provider: Aug 19, 2021 Time Seen by a Provider: 10:47 Sepsis Event Evaluation Height, Weight, BMI Height: 5'5.00" Weight: 200lbs. 0.8oz. 90.623379ma; 30.00 BMI Method: Exam Exam Patient acknowledged, consented, and participated in this virtual visit which was conducted using real time audio/video Vital Signs Date Time Temp Pulse Resp B/P (MAP) Pulse Ox O2 Delivery O2 Flow Rate FiO2 08/19/21 10:16 94 High Flow N/C 25.00 80 08/19/21 10:00 93 18 134/76 (95) 94 Vapotherm 20.00 80.00 08/19/21 09:00 104 15 116/58 (77) 93 Vapotherm 20.00 80.00 08/19/21 08:58 92 High Flow N/C 25.00 85 08/19/21 08:23 Vapotherm 20.00 80.00 08/19/21 08:00 109 18 148/85 (106) 91 Vapotherm 20.00 90.00 08/19/21 08:00 36.2 08/19/21 07:00 Vapotherm 20.00 90.00 08/19/21 07:00 101 27 139/70 (93) 94 Vapotherm 20.00 90.00 08/19/21 07:00 110 08/19/21 06:58 93 Vapotherm 20.00 100 08/19/21 06:00 105 24 130/86 (98) 91 Vapotherm 20.00 100.00 08/19/21 05:00 93 23 118/69 (91) 93 Vapotherm 20.00 100.00 08/19/21 04:00 103 24 120/64 (82) 90 Vapotherm 20.00 100.00 08/19/21 04:00 96 Vapotherm 20.00 100 08/19/21 03:00 98 22 141/74 (96) 95 Vapotherm 20.00 100.00 08/19/21 02:00 92 20 134/66 (88) 97 Vapotherm 20.00 100.00 08/19/21 01:16 93 Vapotherm 20.00 100 08/19/21 01:00 87 19 124/88 (100) 96 Vapotherm 20.00 100.00 08/19/21 01:00 87 08/19/21 00:00 96 Vapotherm 20.00 100 08/19/21 00:00 36.5 08/19/21 00:00 92 27 119/46 (70) 96 Vapotherm 20.00 100.00 08/18/21 23:00 95 21 121/63 (82) 99 Vapotherm 20.00 100.00 08/18/21 22:00 114 22 111/88 (96) 100 Vapotherm 20.00 100.00 08/18/21 21:49 97 Vapotherm 20.00 100 08/18/21 21:00 107 28 134/61 (85) 100 Vapotherm 20.00 100.00 08/18/21 20:00 96 Vapotherm 20.00 100 08/18/21 20:00 36.5 08/18/21 20:00 107 125/66 (87) 100 Vapotherm 20.00 100.00 08/18/21 19:00 112 08/18/21 19:00 112 26 148/97 (122) 95 Vapotherm 20.00 100.00 08/18/21 18:38 96 Vapotherm 20.00 100 08/18/21 18:20 Vapotherm 20.00 100.00 08/18/21 18:00 106 19 150/114 (126) 96 Vapotherm 30.00 60.00 08/18/21 17:00 103 26 140/79 (99) 97 Vapotherm 30.00 60.00 08/18/21 16:00 93 Vapotherm 35.00 75 08/18/21 16:00 101 21 153/70 (97) 92 Vapotherm 30.00 60.00 08/18/21 15:00 105 25 93 Vapotherm 30.00 60.00 08/18/21 14:40 95 Vapotherm 30.00 90 08/18/21 14:00 99 24 141/72 (93) 94 Vapotherm 30.00 60.00 08/18/21 13:00 98 08/18/21 13:00 100 24 141/79 (92) 91 Vapotherm 30.00 60.00 08/18/21 12:00 93 Vapotherm 30.00 90 08/18/21 12:00 94 24 121/93 (102) 90 Vapotherm 30.00 60.00 08/18/21 11:10 91 Vapotherm 30.00 60 08/18/21 11:00 91 19 123/78 (93) 92 Vapotherm 30.00 60.00 I & O 08/19/21 07:00 Intake Total 1150 ml Output Total 1225 ml Balance -75 ml Height & Weight Height: 5'5.00" Weight: 200lbs. 0.8oz. 90.718658dx; 30.00 BMI Method: General Appearance: Anxious, Chronically ill, Mild Distress, Obese HEENT: No Scleral Icterus (L), No Scleral Icterus (R) Respiratory: Accessory Muscle Use, Decreased Breath Sounds, Wheezing Cardiovascular: Regular Rate, Rhythm Capillary Refill: Less Than 3 Seconds Peripheral Pulses: 2+ Radial Pulses (R), 2+ Radial Pulses (L) Extremity: Pedal Edema (3+ pitting bilaterally ) Neurologic/Psychiatric: No Normal Mood/Affect (Pt anxious when I was trying to speak with her) Skin: Normal Color, Warm/Dry Results Lab Laboratory Tests 08/18/21 03:10 08/19/21 03:35 Assessment/Plan Assessment/Plan (Tele-ICU Physician , Progress Note ) Available chart/ vitals / labs / Images reviewed Video assessment done using teleICU camera, rest of exam as per RN Discussed with RN , EXAM PER RN Events overnight : placed on precedex , had increased cardizem for HR 200 Afebrile I/O = even Drips: Pressors: , hemodynamically stable Consultants: cynthia Alexander Hospital course: 08/13 - hypoxia / dyspnea , RIGHT effuison - s/p tap 2 L - >residual right basilar PTX 08/05 - to ICU with SVT - on cardizem, PTX stable 08/16 - Vapotherm 35L 60% 10/29 - pathology POSITIVE FOR ADENO CA A/P Acute resp failure , hypoxia -Vapotherm 25L 85% - CXT stable - steroids IV Lethargy - ABG with compensated hypercarbia - as per RN - neuro exam nonfocal- recent CTH negative AECOPD - steroids IV to taper - nebs - follow with elv HR PAF, with episode RVR 08/15 - back to sinus /PAF - cards consulted - OFF cardisem gtt - on PO Chronic hypoxic resp failure/ COPD with severe bullous dz on CT - home o2 PNA, suspected - recently Tx with ABX , re-stated abx on 08/13 on admission - will finish course RIGHT plural effusion - s/p thoracentesis 08/13 RIGHT - 2 L - no clinical improvement reported - labs from thora suggest exudate - no Ph available - minimal effiusion seen on CT 03/2021 and 06/2021 with stable masslike lesion - path POSITIVE FOR ADENO CA RIGHT basal TX post thoracentesis - most likely etiology of trapped lung - to follow Nonobstructive CAD per LHC done 07/10/21, ECHO 06/26/21 EF 60% , RVSP 35 mm stage IA non small cell lung carcinoma 2018 - s/p chemo and Rad TX ( with radiation pneumonitis reportedly - RIGHT plurl fluid path POSITIVE FOR ADENO CA = needs oncology consult , CT chest ordered DM - starting ISS , to increase dose today Lines : left port to try to acsess (Central Line Necessity Reviewed) [place]: OG: Nutrition: po Analgesia: Anxiety/ delirium ativan VTE Prophylaxis: on eliquis Stress Ulcer Prophylaxis: none Glycemic Control: Plans in collaboration with bedside consultants and IM MDs. Discussed with RN to reach out if any questions or concerns A total of 35 minutes of critical care time was devoted to this patient today, required to treat and/or prevent further deterioration of critical care condition ( as above ) . SHANICE MONTES MD Aug 19, 2021 10:47
--- NOTE | 2021-08-19 11:33 | Progress Note - Hospitalist ---
MARIN SAEZ 08/19/21 1133: Subjective HPI/CC On Admission Date Seen by Provider: Aug 19, 2021 Time Seen by Provider: 08:16 Subjective/Events-last exam PT presented to ER via EMS on 08/13 for shortness of breath and difficulty breathing. She has a known Hx of COPD, regularly uses oxygen and recently finished abx for pneumonia. U/S guided thoracentesis was performed on 08/14 and pathology indicates cells consistent with malignant lung adenocarcinoma. The patient's current debilitated status made obtaining history difficult today. PT has significant difficulty breathing and speaks in broken words between breaths. PT reports diffuse chest pain and leg pain. Objective Exam Vital Signs Vital Signs Date Time Temp Pulse Resp B/P (MAP) Pulse Ox O2 Delivery O2 Flow Rate FiO2 08/20/21 10:33 98 Vapotherm 30.00 70 08/20/21 09:40 88 29 117/63 (81) 08/20/21 07:57 35.9 Capillary Refill : Less Than 3 Seconds General Appearance: Chronically ill, Mild Distress Respiratory: Accessory Muscle Use, Respiratory Distress Cardiovascular: Normal Peripheral Pulses Gastrointestinal: Non Tender, Soft Rectal: Deferred Back: No CVA Tenderness, No Vertebral Tenderness Extremity: Normal Capillary Refill, Calf Tenderness Neurologic/Psychiatric: Alert, Disoriented Skin: Normal Color, Warm/Dry Lymphatic: No Adenopathy Results/Procedures Lab Laboratory Tests 08/20/21 02:25 Patient resulted labs reviewed. Assessment/Plan Assessment and Plan Assess & Plan/Chief Complaint Altered mental status Acute on chronic respiratory failure - COPD Rt pleural effusion - positive for adenocarcinoma Elevated LFTs A-fib HTN HLD CAD Plan:ICU care and monitor lung function 08/18/2021 Pneumonia treatment Steroids [place] Referral 08/19/2021 Supportive care - prognosis guarded MELLY HEIN DO 08/21/21 0515: Subjective Subjective/Events-last exam Patient with severe dyspnea End-stage COPD Very close to terminal [place] will accept if she is able to transfer Review of Systems General: Fatigue Pulmonary: Dyspnea Objective Exam General Appearance: WD/WN, Anxious, Chronically ill, Mild Distress, Obese Respiratory: Accessory Muscle Use, Respiratory Distress Cardiovascular: Regular Rate, Rhythm Assessment/Plan Assessment and Plan Assess & Plan/Chief Complaint Supportive care [place] versus palliative Supervisory-Addendum Brief Verification & Attestation Participated in pt care: history, MDM, physical Personally performed: exam, history, MDM, supervision of care Care discussed with: Medical Student Procedures: n/a Results interpretation: Verified all documentation Verification and Attestation of Medical Student E/M Service A medical student performed and documented this service in my presence. I reviewed and verified all information documented by the medical student and made modifications to such information, when appropriate. I personally performed the physical exam and medical decision making. Melly Hein Aug 21, 2021,05:13 MARIN SAEZ Aug 19, 2021 11:33 MELLY HEIN DO Aug 21, 2021 05:15
[2021-08-19] MEDS: ALPRAZolam 0.5 MG (XANAX) TAB PO PRN ×2 (12:46→20:41)
[2021-08-19] MEDS ORDERED: HOLD METFORMIN - RECEIVED CONTRAST 20 ML VIAL IV SCH (14:45)
[2021-08-19] MEDS ORDERED: IOHEXOL 350 MG/ML 100 ML (OMNIPAQUE 350) VIAL IV ONE (14:45)
[2021-08-19] MEDS ORDERED: NS 100 ML (IVPB) BAG IV ONE (14:45)
--- NOTE | 2021-08-19 15:49 | Diagnostic Imaging Report ---
INDICATION: Lung cancer and shortness of breath and respiratory failure. TECHNIQUE: Multiple contiguous axial images were obtained through the chest after uneventful bolus administration of intravenous contrast. 3D reconstructed CTA MIP acquisitions were also performed. Auto Exposure Controls were utilized during the CT exam to meet ALARA standards for radiation dose reduction. Comparison dated 06/20/2021. The pulmonary parenchymal vessels are well-opacified with no CT evidence of pulmonary emboli. There are no enlarged axillary nodes. There are no enlarged nodes in the mediastinum or raffaele. There is a moderate size right pleural effusion which is increased compared to the previous study of 06/20/2021. There is no significant left pleural fluid. There is a minimal trace of pericardial fluid posteriorly. Lung parenchymal windows demonstrate severe emphysematous changes. There are some dependent atelectatic changes in the lung bases on both sides. There is some infiltrate versus atelectasis left lower lobe which is new compared to the prior study. The masslike area in the right lower lobe appears stable compared to the prior study. There is no new pulmonary parenchymal mass. There is some right basilar atelectasis. IMPRESSION: No CT evidence of pulmonary emboli or aortic dissection or aneurysm. Moderate size right pleural effusion is present which is increased in size compared to the previous study. There is some right basilar atelectasis. There is some new infiltrate versus atelectasis in the left lower lobe. There is severe emphysematous change. Masslike density in the right lower lobe appears stable. Dictated by: Dictated on workstation # [id number]
[2021-08-19] MEDS: MONTELUKAST 10 MG (SINGULAIR) TAB PO SCH (20:41)
[2021-08-20] VITALS (14 sets, daily range): BP systolic 114–151; BP diastolic 55–92
[2021-08-20] MEDS: morphine INJ 4 MG/ML 1 ML (VIAL/SYRINGE) IVP PRN ×2 (01:07→14:24)
[2021-08-20] MEDS: CEFEPIME INJECTION 1,000 MG in WATER (STERILE) FOR INJECTION 10 ML IV SCH ×2 (01:07→09:07)
--- NOTE | 2021-08-20 01:28 | CONSULTATION REPORT ---
DATE OF SERVICE: The patient is admitted to ICU bed 12. PHYSICIAN REQUESTING CONSULTATION: Melly Blackwood DO PRIMARY PHYSICIAN: Ada Rashid APRN IMPRESSION: 1. 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 Not a surgical candidate and treated with SBRT. Recurrence noted in 03/2018 with a subcarinal lymph node positive for metastatic adenocarcinoma that was EGFR negative. She completed salvage external beam radiation therapy with concurrent chemo using carboplatin and paclitaxel for the last 3 weeks of radiation, completing all treatments by 07/20/2018. She was on maintenance durvalumab for a year, which was completed by late 2018. She has been on surveillance since then. 2. Significant COPD with oxygen and steroid dependence. 3. Hypercapnic acute on chronic respiratory failure and requiring oxygen delivery by CPAP. 4. Significant right pleural effusion on admission, status post diagnostic and therapeutic thoracentesis with a pleural fluid positive for malignant cells consistent with adenocarcinoma of lung origin. RECOMMENDATIONS: 1. Her general condition and performance status is extremely poor and she is not considered a candidate for any treatment for recurrent lung cancer at this point. I discussed this with her son and answered his questions. The patient is unable to participate in the discussion as she is somnolent and barely wakes up with stimulus. She is not completely oriented, but is able to answer simple questions with a yes or a no. 2. Continue management of hypercapnic respiratory failure as you are doing. Agree with maintaining the patient as a DNR/DNI because of poor overall prognosis. 3. The patient's son also indicated that his mom would not agree to any chemotherapeutic options even if she could as she has refused this in the past vehemently. 4. Proceed with best supportive care as you are doing. The patient's son indicated that the patient's sister who lives in [place] is planning to come and visit the patient soon. 5. Will be available for any questions from oncology from either the patient or her family members. BRIEF HISTORY: The patient is a 71-year-old female, who was brought to the emergency room from her home with worsening shortness of breath. She was treated for respiratory infection on an outpatient basis prior to the admission. She has significant COPD and was oxygen and steroid dependent for a long time. She has not had a pulmonary followup since Dr. De La Cruz moved from [facility]. During evaluation in the emergency room, she was noted to have right pleural effusion that was new. Surgical consultation was obtained and diagnostic and therapeutic thoracentesis was done after ultrasound marking of the fluid. The cytology report showed malignant cells consistent with adenocarcinoma of lung origin. An oncology consultation was requested for further recommendations. PAST MEDICAL HISTORY: Significant for stage I right lower lobe adenocarcinoma of the lung diagnosed in early 2018 as mentioned in the history of present illness. She was not considered a surgical candidate because of her COPD and other comorbidities. She was treated with definitive SBRT. Followup scan showed increase in the right lower lobe mass and a PET scan showed hypermetabolic subcarinal lymph node. Transbronchial biopsy of this lymph node was positive for adenocarcinoma. She then underwent external beam radiation therapy and she refused concurrent chemotherapy initially. But after obtaining multiple second opinions, she decided to take concurrent chemotherapy during the last three weeks of radiation, which was completed in 07/2018. She was started on durvalumab maintenance for a year and completed this by late 2019. She has been on surveillance since then. She has significant COPD and has been steroid and oxygen dependent for fairly long time as mentioned above too. Other significant past medical history include hypertension, chronic kidney disease, osteoporosis and osteoarthritis, hyperthyroidism and on treatment with methimazole. She has significant history of diabetes mellitus, which was insulin requiring. Also had anxiety disorder. PAST SURGICAL HISTORY: Prior surgeries include cholecystectomy, hysterectomy and bladder surgery. SOCIAL HISTORY: The patient is and lives in [place], [place]. She has three children, two sons and a daughter. A son and his family lives close by. Daughter lives in [place] and does not have contact with the other son. She has significant history of tobacco use in the past, but had quit smoking approximately 20 years ago. PHYSICAL EXAMINATION: GENERAL: Showed elderly female, moderately obese, somnolent and arousable to stimulus. She is not completely oriented, although able to answer simple questions with a yes or a no. VITAL SIGNS: She was afebrile with pulse rate of 100, respiratory rate of 19, blood pressure 110/78 and oxygen saturation of 95% on 70% FiO2 with a BiPAP machine. HEENT: Normocephalic, extraocular muscles intact. NECK: Supple, with no JVD. No cervical, supraclavicular or axillary lymphadenopathy palpable. CHEST: Symmetrical. LUNGS: Decreased breath sounds bilaterally with rare scattered wheeze. CARDIOVASCULAR: Borderline tachycardic, regular with no murmurs or gallops heard. ABDOMEN: Obese, soft, nontender with no hepatosplenomegaly or other masses palpable. EXTREMITIES: Showed trace edema around the ankles. NEUROLOGIC: Could not be completed because of her somnolence. No focal motor deficits were noted as the patient is able to move all 4 extremities. LABORATORY DATA: CBC done today showed WBC 13.9, hemoglobin 11.5, platelet count 235,000 with neutrophil count 11.4, lymphocyte count 0.2 and monocyte count 0.9. Chemistry panel showed normal electrolytes. BUN was 21 and creatinine 0.74 with GFR 78 mL per minute. Glucose was elevated at 341. AST was 39 and ALT 146 with albumin level of 3.5. ABGs done today showed pH of 7.38, pCO2 of 55, pO2 of 80, bicarbonate elevated at 32. Pathology report from thoracentesis done on 08/14/2021 was positive for malignant cells, which were positive for Napsin A and TTF1 consistent with metastatic adenocarcinoma of lung. CT angiogram of the chest done today showed no evidence of pulmonary emboli. Moderate size right pleural effusion present, which has increased in size compared to previous study. Right basilar atelectasis noted. New infiltrate versus atelectasis in the left lower lobe. Severe emphysematous changes and mass like density in the right lower lobe, stable. Thank you for allowing me to participate in this patient's care. I will follow the patient with you and make appropriate recommendations. Job ID: [id number] DocumentID: [id number] Dictated Date: 08/19/2021 19:06:58 Airplane Pilot Supervisor Date: 08/19/2021 22:17:28 Dictated By: SABI SILVER MD
[2021-08-20] MEDS: RT-ALBUTEROL/IPRATROPIUM 3 ML (DUONEB) VIAL INH SCH ×6 (02:31→22:27)
[2021-08-20 02:34] LABS: BASOPHILS # (AUTO) 0.1 10^3/uL (0.0-0.1); BASOPHILS % (AUTO) 0 % (0-10); EOSINOPHILS # (AUTO) 0.2 10^3/uL (0.0-0.3); EOSINOPHILS % (AUTO) 2 % (0-10); HEMATOCRIT 36 % (35-52); HEMOGLOBIN 11.4 g/dL (11.5-16.0); LYMPHOCYTES # (AUTO) 0.1 10^3/uL (1.0-4.0); LYMPHOCYTES % (AUTO) 1 % (12-44); MEAN CORPUSCULAR HEMOGLOBIN 33 pg (25-34); MEAN CORPUSCULAR HGB CONC 32 g/dL (32-36); MEAN CORPUSCULAR VOLUME 103 fL (80-99); MEAN PLATELET VOLUME 10.8 fL (9.0-12.2); MONOCYTES % (AUTO) 6 % (0-12); NEUTROPHILS # (AUTO) 12.4 10^3/uL (1.8-7.8); NEUTROPHILS % (AUTO) 80 % (42-75); PLATELET COUNT 207 10^3/uL (130-400); WHITE BLOOD COUNT 15.5 10^3/uL (4.3-11.0)
[2021-08-20 02:52] LABS: ALBUMIN 3.4 GM/DL (3.2-4.5); BILIRUBIN,TOTAL 0.4 MG/DL (0.1-1.0); CREATININE SERUM 0.65 MG/DL (0.60-1.30); MAGNESIUM 2.5 MG/DL (1.6-2.4); POTASSIUM 4.7 MMOL/L (3.6-5.0); TOTAL PROTEIN 5.4 GM/DL (6.4-8.2)
[2021-08-20] MEDS: LORazepam INJ 2 MG/ML (ATIVAN) VIAL IVP PRN ×5 (06:03→23:55)
[2021-08-20] MEDS: inSUlin ASPART (NovoLOG) 1 UNIT/0.01 ML (CHARGE PER UNIT) SC SCH ×4 (06:03→20:35)
[2021-08-20] MEDS: RT--FLUTICASONE/SALMETEROL 232-14 (AIRDUO RespiCLICK) IH SCH ×2 (06:41→18:34)
--- NOTE | 2021-08-20 07:39 | Progress Note - Hospitalist ---
MARIN SAEZ 08/20/21 0738: Subjective HPI/CC On Admission Date Seen by Provider: Aug 20, 2021 Time Seen by Provider: 08:03 Subjective/Events-last exam Pt resting in bed and does not arouse easily and has significant difficulty breathing. Only able to answer yes and no to questions making obtaining history difficult. Objective Exam Vital Signs Vital Signs Date Time Temp Pulse Resp B/P (MAP) Pulse Ox O2 Delivery O2 Flow Rate FiO2 08/20/21 11:22 35.9 08/20/21 10:33 98 Vapotherm 30.00 70 08/20/21 09:40 88 29 117/63 (81) Capillary Refill : Less Than 3 Seconds General Appearance: Anxious, Mild Distress Neck: Full Range of Motion, Supple Respiratory: Accessory Muscle Use, Inspiration, Wheezing Cardiovascular: Regular Rate, Rhythm, Normal Peripheral Pulses Gastrointestinal: Normal Bowel Sounds, No Organomegaly, No Pulsatile Mass, Soft Rectal: Deferred Extremity: Normal Capillary Refill, Normal Range of Motion Neurologic/Psychiatric: Depressed Affect, Disoriented Skin: Normal Color, Warm/Dry Lymphatic: No Adenopathy Results/Procedures Lab Laboratory Tests 08/20/21 02:25 Patient resulted labs reviewed. Assessment/Plan Assessment and Plan Assess & Plan/Chief Complaint Altered mental status Acute on chronic respiratory failure - COPD Rt pleural effusion - positive for adenocarcinoma Elevated LFTs A-fib HTN HLD CAD Plan:ICU care and monitor lung function 08/18/2021 Pneumonia treatment Steroids [place] Referral 08/19/2021 Supportive care - prognosis guarded 08/20/2021 Supportive care, seen by Dr. Jin, no oncology treatment is planned - family arriving and discussing comfort measures. MELLY HEIN DO 08/21/21 0520: Subjective Subjective/Events-last exam Patient will go comfort care Updated son outside the room Updated [place] on decision Review of Systems General: Fatigue, Malaise Neurological: Weakness, Incoordination Objective Exam General Appearance: WD/WN, Anxious, Chronically ill, Mild Distress, Obese Respiratory: Accessory Muscle Use, Respiratory Distress, Wheezing Cardiovascular: Regular Rate, Rhythm Assessment/Plan Assessment and Plan Assess & Plan/Chief Complaint End-of-life care Supervisory-Addendum Brief Verification & Attestation Participated in pt care: history, MDM, physical Personally performed: exam, history, MDM, supervision of care Care discussed with: Medical Student Procedures: n/a Results interpretation: Verified all documentation Verification and Attestation of Medical Student E/M Service A medical student performed and documented this service in my presence. I reviewed and verified all information documented by the medical student and made modifications to such information, when appropriate. I personally performed the physical exam and medical decision making. Melly Hein Aug 21, 2021,05:19 MARIN SAEZ Aug 20, 2021 07:38 MELLY HEIN DO Aug 21, 2021 05:20
--- NOTE | 2021-08-20 08:18 | Progress Note - Surgery ---
NADIA ALEMAN 08/20/21 0818: Subjective Date Seen by a Provider: Aug 20, 2021 Time Seen by a Provider: 08:00 Subjective/Events-last exam Patient was sleeping restfully when I entered the room. She did not wake when I called her name 3 times. No new imaging or pathology for today. Review of Systems General: Chills Objective Exam Vital Signs Date Time Temp Pulse Resp B/P (MAP) Pulse Ox O2 Delivery O2 Flow Rate FiO2 08/20/21 07:57 35.9 08/20/21 07:51 87 08/20/21 06:41 96 Vapotherm 30.00 75 08/20/21 06:09 Vapotherm 30.00 75.00 08/20/21 06:00 84 20 122/88 (99) 98 Vapotherm 35.00 80.00 08/20/21 05:00 80 20 114/59 (77) 96 Vapotherm 35.00 80.00 08/20/21 04:32 36.4 Vapotherm 35.00 80.00 08/20/21 04:00 80 20 131/64 (89) 97 Vapotherm 35.00 80.00 08/20/21 04:00 95 Vapotherm 35.00 80 08/20/21 03:00 78 18 120/72 (86) 98 Vapotherm 35.00 80.00 08/20/21 02:31 94 Vapotherm 35.00 80 08/20/21 02:19 95 37 136/72 (93) 96 Vapotherm 35.00 80.00 08/20/21 01:00 105 08/20/21 01:00 105 29 119/69 (86) 96 Vapotherm 35.00 80.00 08/20/21 00:19 95 Vapotherm 35.00 80 08/20/21 00:00 98 18 151/74 (99) 96 Vapotherm 35.00 80.00 08/20/21 00:00 36.1 Vapotherm 35.00 80.00 08/19/21 23:00 105 31 146/73 (97) 96 Vapotherm 35.00 80.00 08/19/21 22:54 95 Vapotherm 35.00 80 08/19/21 22:00 112 23 146/67 (93) 97 Vapotherm 35.00 80.00 08/19/21 21:00 112 26 160/70 (88) 95 Vapotherm 35.00 80.00 08/19/21 20:00 94 Vapotherm 35.00 80 08/19/21 20:00 112 28 128/77 (99) Vapotherm 35.00 80.00 08/19/21 19:51 35.8 08/19/21 19:01 94 Vapotherm 35.00 80 08/19/21 19:00 Vapotherm 35.00 80.00 08/19/21 19:00 105 08/19/21 19:00 105 30 125/75 (92) 92 Vapotherm 35.00 80.00 08/19/21 18:11 Vapotherm 35.00 80.00 08/19/21 18:00 100 19 110/78 (89) 95 NIV Bilevel 70.00 08/19/21 17:00 103 17 114/81 (92) 96 NIV Bilevel 70.00 08/19/21 16:14 36.0 08/19/21 16:00 NIV Bilevel 70 08/19/21 16:00 103 18 117/70 (86) 95 NIV Bilevel 70.00 08/19/21 15:00 110 18 91 NIV Bilevel 70.00 08/19/21 14:38 97 25 98 45.00 08/19/21 14:20 NIV Bilevel 70.00 08/19/21 14:00 96 23 164/60 (94) 91 Vapotherm 20.00 80.00 08/19/21 13:49 94 High Flow N/C 25.00 75 08/19/21 13:00 92 19 152/77 (102) 96 Vapotherm 20.00 80.00 08/19/21 13:00 92 08/19/21 12:52 36.2 08/19/21 12:00 88 23 153/91 (111) 96 Vapotherm 20.00 80.00 08/19/21 12:00 96 Vapotherm 25.00 85 08/19/21 11:00 88 19 148/78 (101) 95 Vapotherm 20.00 80.00 08/19/21 10:16 94 High Flow N/C 25.00 80 08/19/21 10:00 93 18 134/76 (95) 94 Vapotherm 20.00 80.00 08/19/21 09:00 104 15 116/58 (77) 93 Vapotherm 20.00 80.00 08/19/21 08:58 92 High Flow N/C 25.00 85 08/19/21 08:23 Vapotherm 20.00 80.00 I & O 08/20/21 07:00 Intake Total 1100 ml Output Total 1100 ml Balance 0 ml Capillary Refill : Less Than 3 Seconds General Appearance: No Apparent Distress (Patient resting peacefully), Chronically ill, Obese HEENT: No Scleral Icterus (L), No Scleral Icterus (R) Respiratory: Accessory Muscle Use, Decreased Breath Sounds, Wheezing Cardiovascular: Regular Rate, Rhythm Skin: Normal Color, Warm/Dry Results Lab Laboratory Tests 08/19/21 09:58: Blood Gas Puncture Site NA, Blood Gas Patient Temperature 36.5, Arterial Blood pH 7.38, Arterial Blood Partial Pressure CO2 55H, Arterial Blood Partial Pressure O2 80, Arterial Blood HCO3 32H, Arterial Blood Total CO2 33.3H, Arterial Blood Oxygen Saturation 96, Arterial Blood Base Excess 6.4H, Radames Test NA, Blood Gas Ventilator Setting NA, Blood Gas Inspired Oxygen 25L/80% 08/19/21 10:38: Glucometer 295H 08/19/21 16:11: Glucometer 291H 08/19/21 20:29: Glucometer 312H 08/20/21 02:25: White Blood Count 15.5H, Red Blood Count 3.51L, Hemoglobin 11.4L, Hematocrit 36, Mean Corpuscular Volume 103H, Mean Corpuscular Hemoglobin 33, Mean Corpuscular Hemoglobin Concent 32, Red Cell Distribution Width 13.3, Platelet Count 207, Mean Platelet Volume 10.8, Immature Granulocyte % (Auto) 11, Neutrophils (%) (Auto) 80H, Lymphocytes (%) (Auto) 1L, Monocytes (%) (Auto) 6, Eosinophils (%) (Auto) 2, Basophils (%) (Auto) 0, Neutrophils # (Auto) 12.4H, Lymphocytes # (Auto) 0.1L, Monocytes # (Auto) 1.0, Eosinophils # (Auto) 0.2, Basophils # (Auto) 0.1, Immature Granulocyte # (Auto) 1.7H, Sodium Level 141, Potassium Level 4.7, Chloride Level 104, Carbon Dioxide Level 27, Anion Gap 10, Blood Urea Nitrogen 21H, Creatinine 0.65, Estimat Glomerular Filtration Rate 90, BUN/Creatinine Ratio 32, Glucose Level 313H, Calcium Level 8.0L, Corrected Calcium 8.5, Phosphorus Level 2.0L, Magnesium Level 2.5H, Total Bilirubin 0.4, Aspartate Amino Transf (AST/SGOT) 50H, Alanine Aminotransferase (ALT/SGPT) 187H, Alkaline Phosphatase 63, Total Protein 5.4L, Albumin 3.4 Microbiology 08/14/21 Gram Stain - Final, Complete 08/14/21 Anaerobic Culture - Final, Complete No anaerobes isolated 08/14/21 Body Fluid Culture - Final, Complete No growth Assessment/Plan Assessment/Plan Assessment/Plan Acute on Chronic Respiratory Failure with R sided pleural effusion s/p thoracentisis, pneumothorax - No new imaging for today Pleural effusion -Pathology came back with Malignant cells SOB, COPD, Anxiety O2 saturation is similar to today, but her vapotherm is on 35L/min compared to 20L/min yesterday. MANJIT WADDELL DO 08/20/21 1325: Subjective Time Seen by a Provider: 11:26 Subjective/Events-last exam Pt seen and examined, sleepy but arousable. Review of Systems General: Fatigue, Malaise Pulmonary: Dyspnea Cardiovascular: No: Chest Pain, Palpitations Gastrointestinal: No: Nausea, Vomiting, Abdominal Pain Objective Exam General Appearance: No Apparent Distress (Patient resting peacefully), Chronically ill, Obese Respiratory: Accessory Muscle Use, Decreased Breath Sounds, Wheezing Cardiovascular: Regular Rate, Rhythm Assessment/Plan Assessment/Plan Assessment/Plan Acute on Chronic Respiratory Failure with R sided pleural effusion s/p th oracentisis, pneumothorax - No new imaging for today Pleural effusion -Pathology came back with Malignant cells SOB, COPD, Anxiety Pt will be switched to comfort care, she has spoken with Hospice nurse; just waiting on her daughter to arrive. Supervisory-Addendum Brief Verification & Attestation Participated in pt care: history, MDM, physical Personally performed: exam, history, MDM, supervision of care Care discussed with: Medical Student Procedures: n/a Verification and Attestation of Medical Student E/M Service A medical student performed and documented this service. I then reviewed and verified all information documented by the medical student and made modifications to such information, when appropriate. I personally performed a physical exam, medical decision making and then discussed any differences between the notes and made revisions as necessary to create one note. Manjit Waddell , 08/20/21 , 13:24 NADIA ALEMAN Aug 20, 2021 08:18 MANJIT WADDELL DO Aug 20, 2021 13:25
--- NOTE | 2021-08-20 08:49 | Cardiology Progress Note ---
Subjective Date Seen by Provider: Aug 20, 2021 Time Seen by Provider: 08:48 Subjective/Events-last exam Patient is laying down in bed, lethargic, opening her eyes, not in distress. No new complaint. Still on Vapotherm Review of Systems General: Fatigue, Malaise Pulmonary: Dyspnea Objective-Cardiology Exam Last Set of Vital Signs Vital Signs 08/20/21 08/20/21 08/20/21 06:41 07:57 08:00 Temp 35.9 Pulse 84 Resp 22 B/P (MAP) 114/65 (81) Pulse Ox 94 O2 Delivery Vapotherm O2 Flow Rate 35.00 80.00 FiO2 75 I&O Intake and Output 08/20/21 00:00 Intake Total 1160 ml Output Total 1225 ml Balance -65 ml Intake Oral 1160 ml Output Urine Total 1225 ml General: Alert, No Acute Distress HEENT: Atraumatic Neck: Supple Lungs: Other (diminish) Heart: Regular Rate, Normal S1, Normal S2, No Murmurs Abdomen: Normal Bowel Sounds, Soft, Other Extremities: No Clubbing, Other (2+ pitting edema) Skin: No Rashes Psych/Mental Status: Other (Lethargic) Results Lab Laboratory Tests 08/20/21 02:25 A/P-Cardiology Admission Diagnosis Acute respiratory failure Acute exacerbation of COPD Paroxysmal atrial flutter Tachycardia Assessment/Plan Acute on chronic respiratory failure, large pleural effusion status post thorac entesis with residual pneumothorax, managed by general surgery and medical team, possible transfer to [facility]. Acute exacerbation of COPD, maintained on Vapotherm, CT scan showed severe emphysema, moderate pleural effusion. Questionable infiltrate. Managed by primary care team Paroxysmal atrial fibrillation/flutter, had an episode of atrial flutter with rapid ventricular response, converted to sinus rhythm and doing better, currently in sinus rhythm, continue to monitor Change in mental status, lethargic, probably secondary to hypoxemia. Continue to monitor closely Nonobstructive coronary artery disease per LHC done 07/10/21, Continue to monitor 2D Echocardiogram done 06/26/21 with moderate concentric hypertrophy, EF 65-70%. PA 35-40mmHg. Patient was tachycardic with hyperdynamic ventricle, overall suboptimal study Hypertension, continue to monitor blood pressure. No changes are recommended at this time History of GI bleed in the past, has refused endoscopy in the past. DM, management per PCP. Back pain, T6 fracture, had kyphoplasty by Dr. Wallace in July 2019. Continue t o monitor History of lung cancer, followed by Dr. [place] History of acute psychosis, improved History of renal failure, improved, continue to monitor History of tobaccoism, stopped in 1993. Continue to monitor Hypothyroidism, management per PCP BMI 38, we discussed weight loss Mild nonobstructive carotid artery stenosis per carotid duplex done April 2021 CHAGO EISENBERG MD Aug 20, 2021 08:49
[2021-08-20] MEDS: meTOprolol TARTRATE 25 MG (LOPRESSOR) TABLET PO SCH ×2 (09:06→20:35)
[2021-08-20] MEDS: ALPRAZolam 0.5 MG (XANAX) TAB PO PRN ×2 (09:06→20:35)
[2021-08-20] MEDS: dilTIAZem120 MG (CARDIZEM CD) CAP PO SCH (09:06)
[2021-08-20] MEDS: APIXABAN 5 MG (ELIQUIS) TABLET PO SCH ×2 (09:06→20:35)
[2021-08-20] MEDS: methylPREDNISolone 40 MG/ML (Solu-MEDROL) VIAL IV SCH ×2 (09:07→20:35)
--- NOTE | 2021-08-20 09:29 | Tele-ICU Progress Note ---
Subjective Date Seen by a Provider: Aug 20, 2021 Time Seen by a Provider: 09:29 Sepsis Event Evaluation Height, Weight, BMI Height: 5'5.00" Weight: 200lbs. 0.8oz. [id number]; 30.00 BMI Method: Exam Exam Patient acknowledged, consented, and participated in this virtual visit which was conducted using real time audio/video Vital Signs Date Time Temp Pulse Resp B/P (MAP) Pulse Ox O2 Delivery O2 Flow Rate FiO2 08/20/21 08:00 84 22 114/65 (81) 94 Vapotherm 35.00 80.00 08/20/21 07:57 35.9 08/20/21 07:51 87 08/20/21 07:00 84 24 116/55 (75) 96 Vapotherm 35.00 80.00 08/20/21 06:41 96 Vapotherm 30.00 75 08/20/21 06:09 Vapotherm 30.00 75.00 08/20/21 06:00 84 20 122/88 (99) 98 Vapotherm 35.00 80.00 08/20/21 05:00 80 20 114/59 (77) 96 Vapotherm 35.00 80.00 08/20/21 04:32 36.4 Vapotherm 35.00 80.00 08/20/21 04:00 80 20 131/64 (89) 97 Vapotherm 35.00 80.00 08/20/21 04:00 95 Vapotherm 35.00 80 08/20/21 03:00 78 18 120/72 (86) 98 Vapotherm 35.00 80.00 08/20/21 02:31 94 Vapotherm 35.00 80 08/20/21 02:19 95 37 136/72 (93) 96 Vapotherm 35.00 80.00 08/20/21 01:00 105 08/20/21 01:00 105 29 119/69 (86) 96 Vapotherm 35.00 80.00 08/20/21 00:19 95 Vapotherm 35.00 80 08/20/21 00:00 98 18 151/74 (99) 96 Vapotherm 35.00 80.00 08/20/21 00:00 36.1 Vapotherm 35.00 80.00 08/19/21 23:00 105 31 146/73 (97) 96 Vapotherm 35.00 80.00 08/19/21 22:54 95 Vapotherm 35.00 80 08/19/21 22:00 112 23 146/67 (93) 97 Vapotherm 35.00 80.00 08/19/21 21:00 112 26 160/70 (88) 95 Vapotherm 35.00 80.00 08/19/21 20:00 94 Vapotherm 35.00 80 08/19/21 20:00 112 28 128/77 (99) Vapotherm 35.00 80.00 08/19/21 19:51 35.8 08/19/21 19:01 94 Vapotherm 35.00 80 08/19/21 19:00 Vapotherm 35.00 80.00 08/19/21 19:00 105 08/19/21 19:00 105 30 125/75 (92) 92 Vapotherm 35.00 80.00 08/19/21 18:11 Vapotherm 35.00 80.00 08/19/21 18:00 100 19 110/78 (89) 95 NIV Bilevel 70.00 08/19/21 17:00 103 17 114/81 (92) 96 NIV Bilevel 70.00 08/19/21 16:14 36.0 08/19/21 16:00 NIV Bilevel 70 08/19/21 16:00 103 18 117/70 (86) 95 NIV Bilevel 70.00 08/19/21 15:00 110 18 91 NIV Bilevel 70.00 08/19/21 14:38 97 25 98 45.00 08/19/21 14:20 NIV Bilevel 70.00 08/19/21 14:00 96 23 164/60 (94) 91 Vapotherm 20.00 80.00 08/19/21 13:49 94 High Flow N/C 25.00 75 08/19/21 13:00 92 19 152/77 (102) 96 Vapotherm 20.00 80.00 08/19/21 13:00 92 08/19/21 12:52 36.2 08/19/21 12:00 88 23 153/91 (111) 96 Vapotherm 20.00 80.00 08/19/21 12:00 96 Vapotherm 25.00 85 08/19/21 11:00 88 19 148/78 (101) 95 Vapotherm 20.00 80.00 08/19/21 10:16 94 High Flow N/C 25.00 80 08/19/21 10:00 93 18 134/76 (95) 94 Vapotherm 20.00 80.00 I & O 08/20/21 07:00 Intake Total 1100 ml Output Total 1100 ml Balance 0 ml Height & Weight Height: 5'5.00" Weight: 200lbs. 0.8oz. [id number]; 30.00 BMI Method: General Appearance: No Apparent Distress (Patient resting peacefully), Chronically ill, Obese HEENT: No Scleral Icterus (L), No Scleral Icterus (R) Respiratory: Accessory Muscle Use, Decreased Breath Sounds, Wheezing Cardiovascular: Regular Rate, Rhythm Capillary Refill: Less Than 3 Seconds Skin: Normal Color, Warm/Dry Results Lab Laboratory Tests 08/19/21 03:35 08/20/21 02:25 Assessment/Plan Assessment/Plan Available chart/ vitals / labs / Images reviewed Video assessment done using teleICU camera, rest of exam as per RN Discussed with RN , EXAM PER RN Events overnight : placed on precedex , had increased cardizem for HR 200 Afebrile I/O = even Drips: Pressors: , hemodynamically stable Consultants: cynthia Alexander Hospital course: 08/13 - hypoxia / dyspnea , RIGHT effuison - s/p tap 2 L - >residual right basilar PTX 08/05 - to ICU with SVT - on cardizem, PTX stable 08/16 - Vapotherm 35L 70% 10/29 - pathology POSITIVE FOR ADENO CA , seen by oncolofy - no TX offered A/P Acute resp failure , hypoxia -Vapotherm 25L 85% - CXT stable - steroids IV to cont Lethargy - ABG with compensated hypercarbia - as per RN - neuro exam nonfocal- recent CTH negative AECOPD - steroids IV same dose today - nebs - follow with elv HR PAF, with episode RVR 08/15 - back to sinus /PAF - cards consulted - OFF cardisem gtt - on PO Chronic hypoxic resp failure/ COPD with severe bullous dz on CT - home o2 , high needs now , severe emphysema PNA LLL and RLL - seen on recent CT - cont abx 2 more days RIGHT plural effusion - s/p thoracentesis 08/13 RIGHT - 2 L - no clinical improvement reported - labs from thora suggest exudate - no Ph available - minimal effiusion seen on CT 03/2021 and 06/2021 with stable masslike lesion - path POSITIVE FOR ADENO CA , CT chest done - seen by oncolofy - no TX offered Reaccumulation of effusion by CT - no ecpected benefit from PLEUREX RIGHT basal TX post thoracentesis - most likely etiology of trapped lung - to follow Nonobstructive CAD per LHC done 07/10/21, ECHO 06/26/21 EF 60% , RVSP 35 mm stage IA non small cell lung carcinoma 2018 - s/p chemo and Rad TX ( with radiation pneumonitis reportedly - RIGHT plurl fluid path POSITIVE FOR ADENO CA - seen by oncolofy - no TX offered DM - starting ISS , to increase dose today Lines : left port to try to acsess (Central Line Necessity Reviewed) [place]: OG: Nutrition: po Analgesia: Anxiety/ delirium ativan xanax VTE Prophylaxis: on eliquis Stress Ulcer Prophylaxis: none Glycemic Control: Plans in collaboration with bedside consultants and IM MDs. Discussed with RN to reach out if any questions or concerns A total of 35 minutes of critical care time was devoted to this patient today, required to treat and/or prevent further deterioration of critical care condition ( as above ) . SHANICE MONTES MD Aug 20, 2021 09:29
[2021-08-20] MEDS ORDERED: LORazepam INJ 2 MG/ML (ATIVAN) VIAL ONE (12:06)
[2021-08-20] MEDS: MONTELUKAST 10 MG (SINGULAIR) TAB PO SCH (20:35)
[2021-08-21] VITALS: BP 129/68
[2021-08-21] MEDS: morphine INJ 4 MG/ML 1 ML (VIAL/SYRINGE) IVP PRN ×6 (02:34→18:18)
[2021-08-21] MEDS: RT-ALBUTEROL/IPRATROPIUM 3 ML (DUONEB) VIAL INH SCH ×4 (02:44→15:08)
[2021-08-21 04:00] VITALS: BP 119/68
[2021-08-21 05:15] VITALS: BP 135/84
[2021-08-21] MEDS: inSUlin ASPART (NovoLOG) 1 UNIT/0.01 ML (CHARGE PER UNIT) SC SCH ×2 (05:36→11:25)
[2021-08-21] MEDS: meTOprolol TARTRATE 25 MG (LOPRESSOR) TABLET PO SCH ×2 (07:47→20:11)
[2021-08-21] MEDS: APIXABAN 5 MG (ELIQUIS) TABLET PO SCH ×2 (07:47→20:11)
[2021-08-21] MEDS: methylPREDNISolone 40 MG/ML (Solu-MEDROL) VIAL IV SCH (07:47)
[2021-08-21] MEDS: dilTIAZem120 MG (CARDIZEM CD) CAP PO SCH (07:48)
[2021-08-21 08:09] VITALS: BP 122/62
--- NOTE | 2021-08-21 08:59 | Cardiology Progress Note ---
Subjective Date Seen by Provider: Aug 21, 2021 Time Seen by Provider: 08:30 Subjective/Events-last exam Patient sitting up in bed, continues to have dyspnea. Reporting fatigue. Denies any chest pain Review of Systems General: No Chills, No Night Sweats; Fatigue, Malaise; No Appetite, No Other HEENT: No Head Aches, No Visual Changes, No Eye Pain, No Ear Pain, No Dysphasia, No Sinus Congestion, No Post Nasal Drip, No Sore Throat, No Other Pulmonary: Dyspnea; No Cough, No Pleuritic Chest Pain, No Other Cardiovascular: No: Chest Pain, Palpitations, Orthopnea, Paroxysmal Noc. Dyspnea, Edema, Lt Headedness, Other Objective-Cardiology Exam Last Set of Vital Signs Vital Signs 08/21/21 08/21/21 12:09 15:08 Temp 36.6 Pulse 84 Resp 22 B/P (MAP) 125/60 (81) Pulse Ox 94 O2 Delivery Vapotherm O2 Flow Rate 30.00 FiO2 60 I&O Intake and Output 08/21/21 00:00 Intake Total 610 ml Output Total 1050 ml Balance -440 ml Intake Oral 610 ml Output Urine Total 1050 ml General: Alert, No Acute Distress HEENT: Atraumatic Neck: Supple Lungs: Other (diminish) Heart: Regular Rate, Normal S1, Normal S2, No Murmurs Abdomen: Normal Bowel Sounds, Soft, Other Extremities: No Clubbing, Other (2+ pitting edema) Skin: No Rashes Psych/Mental Status: Other (Lethargic) A/P-Cardiology Admission Diagnosis Acute respiratory failure Acute exacerbation of COPD Paroxysmal atrial flutter Tachycardia Assessment/Plan Acute on chronic respiratory failure, large pleural effusion status post thoracentesis with residual pneumothorax, managed by general surgery and medical team, cytology showing malignant cells. Possible comfort care today. Acute exacerbation of COPD, maintained on Vapotherm, CT scan showed severe emphysema, moderate pleural effusion. Questionable infiltrate. Managed by primary care team Lung CA, followed by Dr. Hernandez Paroxysmal atrial fibrillation/flutter, had an episode of atrial flutter with rapid ventricular response, converted to sinus rhythm and doing better, currently in sinus rhythm, continue to monitor Change in mental status, lethargic, probably secondary to hypoxemia. Continue to monitor closely Nonobstructive coronary artery disease per C done 07/10/21, Continue to monitor 2D Echocardiogram done 06/26/21 with moderate concentric hypertrophy, EF 65-70%. PA 35-40mmHg. Patient was tachycardic with hyperdynamic ventricle, overall suboptimal study Hypertension, continue to monitor blood pressure. No changes are recommended at this time History of GI bleed in the past, has refused endoscopy in the past. DM, management per PCP. Back pain, T6 fracture, had kyphoplasty by Dr. Wallace in July 2019. Continue to monitor History of acute psychosis, improved History of renal failure, improved, continue to monitor History of tobaccoism, stopped in 1993. Continue to monitor Hypothyroidism, management per PCP BMI 38, we discussed weight loss Mild nonobstructive carotid artery stenosis per carotid duplex done April 2021 Supervisory-Addendum Brief Supervisory Addendum Participated in pt care: history, MDM, physical Personally performed: exam, history, MDM Care discussed with: ZHOU Results interpretation: Verified all documentation Notes: Patient was seen and evaluated with Sandip, examination performed, management plan was discussed, agree with the current scribed note, I made few changes to the note using Italic font Patient was seen with Sandip Laying down comfortably, family at her bedside Complaining of shortness of breath and generalized fatigue and loss of energy Continue on current treatment Management was discussed with SANDIP Milligan Aug 21, 2021 08:58 CHAGO EISENBERG MD Aug 21, 2021 16:13
[2021-08-21] MEDS: LORazepam INJ 2 MG/ML (ATIVAN) VIAL IVP PRN ×6 (10:03→20:49)
[2021-08-21] MEDS: RT--FLUTICASONE/SALMETEROL 232-14 (AIRDUO RespiCLICK) IH SCH (10:24)
--- NOTE | 2021-08-21 10:55 | Progress Note - Hospitalist ---
Subjective HPI/CC On Admission Date Seen by Provider: Aug 21, 2021 Objective Exam Vital Signs Vital Signs Date Time Temp Pulse Resp B/P (MAP) Pulse Ox O2 Delivery O2 Flow Rate FiO2 08/21/21 19:55 Room Air 08/21/21 18:47 24 08/21/21 18:26 2.00 08/21/21 16:17 36.3 92 158/92 (114) 91 08/21/21 15:08 60 Capillary Refill : Less Than 3 Seconds Results/Procedures Lab Patient resulted labs reviewed. Assessment/Plan Assessment and Plan Assess & Plan/Chief Complaint End-of-life care Critical Care Critically Ill Patient CHARLY HEIN DO Aug 21, 2021 10:55
[2021-08-21] MEDS: ALPRAZolam 0.5 MG (XANAX) TAB PO PRN (11:24)
[2021-08-21 12:09] VITALS: BP 125/60
[2021-08-21] MEDS ORDERED: ONDANSETRON 4 MG/2 ML (SDV) Z0FRAN IVP PRN (15:15)
[2021-08-21] MEDS ORDERED: BISACODYL 10 MG SUPP (DULCOLAX) PR PRN (15:15)
[2021-08-21] MEDS ORDERED: diphenhydrAMINE 50 MG/ML INJ (BENADRYL) IV PRN (15:15)
[2021-08-21] MEDS ORDERED: SALIVA STIMULANT MOUTH SPRAY (BIOTENE) 1.5 OZ MM PRN (15:15)
[2021-08-21] MEDS ORDERED: ONDANSETRON 4 MG/2 ML (SDV) Z0FRAN IV PRN (15:15)
[2021-08-21] MEDS ORDERED: morphine PCA 100 MG/100 ML BAG IV PRN (15:15)
[2021-08-21] MEDS ORDERED: ACETAMINOPHEN 650 MG SUPP (TYLENOL) PR PRN (15:15)
[2021-08-21] MEDS ORDERED: ARTIFICAL TEARS 0.4 ML UNIT DOSE (REFRESH PLUS) OU PRN (15:15)
[2021-08-21] MEDS ORDERED: PROMETHAZINE INJ 25 MG/ML (PHENERGAN) AMP IVP PRN (15:15)
[2021-08-21] MEDS ORDERED: GLYCOPYRROLATE 0.2 MG/ML (ROBINUL) 2 ML VIAL IV PRN (15:15)
[2021-08-21] MEDS ORDERED: NS IV 1000 ML 1,000 ML IV SCH (15:15)
[2021-08-21 16:17] VITALS: BP 158/92
[2021-08-21] MEDS ORDERED: LORazepam INJ 2 MG/ML (ATIVAN) VIAL ONE (18:02)
[2021-08-21] MEDS: HYDROmorphone 2 MG/ML VIAL (DILAUDID) IV PRN ×2 (18:28→19:53)
[2021-08-21] MEDS: MONTELUKAST 10 MG (SINGULAIR) TAB PO SCH (20:11)
--- NOTE | 2021-08-21 22:09 | Discharge Summary ---
Discharge Summary Hospital Course Was the Problem List Reviewed?: Yes Problems/Dx: (1) Paroxysmal atrial fibrillation (2) Coronary artery disease without angina pectoris (3) Primary hypertension (4) Acute and chronic respiratory failure with hypoxia Status: Acute (5) Obesity Hospital Course Date of Admission: Aug 13, 2021 at 22:49 Admission Diagnosis : Family Physician/Provider: Ada Rashid Aprn Date of Discharge: 08/21/21 Discharge Diagnosis: End-stage COPD, pneumonia, atrial fibrillation Hospital Course: End of life care proceeding as scheduled Pt struggling to breath End stage COPD will cause significant distress Morphine and Ativan ordered Standard hospital course after ICU care for exacerbation of COPD with pneumonia. Patient continued to decline. Palliative care consulted and patient was placed on end-of-life care. Patient . Labs and Pending Lab Test: Laboratory Tests 08/21/21 05:27: Glucometer 209H 08/21/21 11:12: Glucometer 222H 08/21/21 15:18: Glucometer 253H Microbiology 08/14/21 Gram Stain - Final, Complete 08/14/21 Anaerobic Culture - Final, Complete No anaerobes isolated 08/14/21 Body Fluid Culture - Final, Complete No growth Home Meds Active Reported Diltiazem 24Hr ER (Diltiazem HCl) 120 Mg Cap.er.24h 120 Mg PO DAILY Spiriva (Tiotropium [place]) 1 Inh Aerp 1 Puff INH DAILY Dulera 200 Mcg/5 Mcg Inhaler (Mometasone/Formoterol) 13 Gm Hfa.aer.ad 2 Puff IH BID Hydroxyzine HCl 25 Mg Tablet 25 Mg PO Q8H PRN Suphedrine PE (Phenylephrine HCl) 10 Mg Tablet 10 Mg PO BID Chlortabs (Chlorpheniramine Maleate) 4 Mg Tablet 4 Mg PO BID Stool Softener (Docusate Sodium) 100 Mg Tablet 100 Mg PO BID Biotin 2,500 Mcg Capsule 2,500 Mcg PO BID Potassium (Potassium Gluconate) 99 Mg Tablet 99 Mg PO BID Echinacea 400 Mg Capsule 400 Mg PO BID Multivitamin 1 Each Tablet 1 Each PO BID Lutein 40 Mg Capsule 40 Mg PO BID Niacin (Niacinamide) 500 Mg Tablet 500 Mg PO HS Calcium (Calcium Carbonate) 600 Mg Tablet 600 Mg PO HS Vitamin D3 (Cholecalciferol (Vitamin D3)) 125 Mcg Tablet 125 Mcg PO DAILY [place] Jelly 500 Mg Capsule 500 Mg PO DAILY [place] Hfa (Albuterol Sulfate) 1 Puff Puff 1 Puff INH Q4H PRN Tramadol HCl 50 Mg Tablet 50 Mg PO Q6H PRN Prednisone 10 Mg Tab 10 Mg PO DAILY Montelukast Sodium 10 Mg Tablet 10 Mg PO HS Metoprolol Tartrate 25 Mg Tablet 25 Mg PO BID Methimazole 5 Mg Tablet 5 Mg PO DAILY Januvia (Sitagliptin Phosphate) 100 Mg Tablet 100 Mg PO DAILY Furosemide 20 Mg Tablet 20 Mg PO DAILY PRN Flonase Allergy Relief (Fluticasone Propionate) 9.9 Ml [place].susp 1 [place] NS BID Eliquis (Apixaban) 5 Mg Tablet 5 Mg PO BID Clindamycin HCl 300 Mg Capsule 300 Mg PO HS Cetirizine HCl 10 Mg Tablet 10 Mg PO HS Assessment/Pt Instructions Discharge Planning: <30 minutes discharge planning Discharge Physical Examination Vital Signs Vital Signs Date Time Temp Pulse Resp B/P (MAP) Pulse Ox O2 Delivery O2 Flow Rate FiO2 08/21/21 19:55 Room Air 08/21/21 18:47 24 08/21/21 18:26 2.00 08/21/21 16:17 36.3 92 158/92 (114) 91 08/21/21 15:08 60 Allergies: Coded Allergies: levofloxacin (Verified Allergy, Severe, TACHYCARDIA, 11/12/18) Penicillins (Verified Allergy, Unknown, FAMILY ALLERGY, 11/12/18) Uncoded Allergies: SURGICAL STEEL (Allergy, Intermediate, RASH, 05/10/18) Discharge Summary Date of Admission Aug 13, 2021 at 22:49 Date of Discharge Comfort Measures/ End of Life Care: Comfort Measures, Hospice (Hospital) Discharge Diagnosis End-of-life care (1) Paroxysmal atrial fibrillation Assessment & Plan: She remains in sinus rhythm. This resolved with intravenous diltiazem. She is now back on oral diltiazem and metoprolol which she was taking at home which she was taking at home. She should continue on apixaban for s troke prophylaxis. (2) Coronary artery disease without angina pectoris Assessment & Plan: She had mild coronary artery disease noted on a previous cardiac catheterization earlier this year. She is not having overt angina. Continue beta-royer. Her LDL level is reasonably controlled as noted on blood work from 08/17. She is not on aspirin because she is on apixaban. (3) Primary hypertension Assessment & Plan: Blood pressure is intermittently elevated. Continue diltiazem and metoprolol which she was taking at home. If her blood pressures remain elevated, we may need to make some adjustments to her antihypertensive medication. (4) Acute and chronic respiratory failure with hypoxia Status: Acute Assessment & Plan: This is most likely due to her severe chronic obstructive pulmonary disease. (5) Obesity Assessment & Plan: She needs to work on weight loss. There is good data that shows 20 pounds of weight loss will help reduce the risk of recurrent atrial fibrillation. CHARLY HEIN DO Aug 21, 2021 22:09
[2021-08-22] MEDS ORDERED: SENNA W/DOCUSATE (SENOKOT S) TABLET PO SCH (09:00)
== END 2021-08-22 00:30 | disposition expired | DRG 180 ==
LOC: EDUNIT# 21:44 → ER 21:46 → CSD 22:49 → ICU 08-15 13:37 → 4TH 08-21 05:11
PROVIDERS: ADMIT Family Medicine; ATTEND Family Medicine
PROC: 5A09357 Assistance with Respiratory Ventilation, Less than 24 Consecutive Hours, Continuous Positive Airway Pressure (ICD-10-PCS; 2021-08-13)
PROC: 0W993ZZ Drainage of Right Pleural Cavity, Percutaneous Approach (ICD-10-PCS; principal; 2021-08-14)
DX: C34.31 Malignant neoplasm of lower lobe, right bronchus or lung (principal); J18.9 Pneumonia, unspecified organism; J96.21 Acute and chronic respiratory failure with hypoxia; J96.22 Acute and chronic respiratory failure with hypercapnia; J91.0 Malignant pleural effusion; J93.83 Other pneumothorax; I48.92 Unspecified atrial flutter; Z66 Do not resuscitate; Z51.5 Encounter for palliative care; Z20.822 Contact with and (suspected) exposure to COVID-19; J43.9 Emphysema, unspecified; E66.9 Obesity, unspecified; Z68.38 Body mass index [BMI] 38.0-38.9, adult; I48.0 Paroxysmal atrial fibrillation; Z79.01 Long term (current) use of anticoagulants; Z99.81 Dependence on supplemental oxygen; I12.9 Hypertensive chronic kidney disease with stage 1 through stage 4 chronic kidney disease, or unspecified chronic kidney disease; E11.22 Type 2 diabetes mellitus with diabetic chronic kidney disease; N18.9 Chronic kidney disease, unspecified; Z79.84 Long term (current) use of oral hypoglycemic drugs; E78.5 Hyperlipidemia, unspecified; I25.10 Atherosclerotic heart disease of native coronary artery without angina pectoris; M81.0 Age-related osteoporosis without current pathological fracture; M19.91 Primary osteoarthritis, unspecified site; E03.9 Hypothyroidism, unspecified; H54.3 Unqualified visual loss, both eyes; K59.00 Constipation, unspecified; F41.9 Anxiety disorder, unspecified; Z87.891 Personal history of nicotine dependence; Z88.1 Allergy status to other antibiotic agents; Z88.0 Allergy status to penicillin; Z79.899 Other long term (current) drug therapy
CPT/HCPCS: 32555; 36415; 70450; 71045; 71275; 80048; 80053; 80061; 82140; 82150; 82570; 82805; 82945; 82947; 83615; 83735; 83880; 84100; 84145; 84157; 85007; 85025; 85027; 87070; 87075; 87205; 87636; 89051; 93005; 94640; 94660; 94760; 96374